=== PATIENT | female | born 1965 ===

== ENCOUNTER 2020-09-02 06:05 | Day surgery (SDC) | payer MEDICAID, SELFPAY ==
[2020-08-30 21:19] VITALS: BMI 33.6
--- NOTE | 2020-09-01 12:14 | P.CONAN_ITS ---
Documented by User: Bobbi Stovall 09/01/20 14:50 HPI - Anesthesia Eval Consult details Narrative: 55yo F for hemorrhoidectomy with EUA PMFSH Past Medical History Medical History (Updated 09/02/20 @ 07:32 by Doris Ma) Anxiety Arthritis Asthma Back pain Coronary artery disease Depression Diabetes GERD (gastroesophageal reflux disease) History of gastroenteritis History of tachycardia History of uterine cancer Hypertension Hypothyroid Increased BMI Migraine Tachycardia Surgical History Surgical History History of cardiac catheterization History of section History of endoscopy History of hysterectomy Social History Social History Smoking Status: Never smoker Use of substances other than those prescribed or required for medical reasons: No Advance Directives: No Advance Directives Information Provided: No Advance Directives on File: No Meds Allergies Allergy/AdvReac Type Severity Reaction Status Date / Time latex [LATEX] Allergy Intermediate ITCH/RASH Verified 09/02/20 06:40 Penicillins Allergy Intermediate RASH Verified 09/02/20 06:40 penicillin V Allergy Unknown rash Verified 09/02/20 06:40 Home Medications Medication Instructions Recorded Confirmed Type Vitamin D (with calcium) 1,000 units PO DAILY 08/30/20 08/30/20 History carvedilol 3.125 mg PO DAILY 08/30/20 08/30/20 History clonazepam 0.5 mg PO DAILY 08/30/20 08/30/20 History clonazepam 1 mg PO BEDTIME 08/30/20 08/30/20 History escitalopram oxalate 40 mg DAILY 08/30/20 08/30/20 History glipizide 10 mg PO DAILY 08/30/20 08/30/20 History isosorbide mononitrate 60 mg PO DAILY 08/30/20 08/30/20 History levothyroxine 50 mcg PO DAILY 08/30/20 08/30/20 History lisinopril 10 mg PO DAILY 08/30/20 08/30/20 History metformin 1,000 mg PO BID 08/30/20 08/30/20 History pregabalin 150 mg PO BID 08/30/20 08/30/20 History rosuvastatin 20 mg PO DAILY 08/30/20 08/30/20 History Exam Exam Date and Time: September 01, 2020 1214 Height,Weight and Vital Signs: Height 5 ft 1 in Weight 80.739 kg Pertinent Lab Results Pertinent Lab Results: Laboratory Tests 05/20/20 05/20/20 08:41 08:41 WBC 8.0 Hgb 13.0 Hct 41.5 Plt Count 193 Sodium 140 Potassium 4.5 Chloride 101 BUN 12 Creatinine 0.81 Narrative Narrative: Cardiac cath 06/2019: nonobstructive CAD with no more than mild ds. Echo 05/2019: EF 60-65% Assessment and Plan Assessment Anesthesia Assessment: Chart Reviewed Documented by User: Doris Ma 09/02/20 07:39 [facility] Past Medical History Medical History (Updated 09/02/20 @ 07:32 by Doris Ma) Anxiety Arthritis Asthma Back pain Coronary artery disease Depression Diabetes GERD (gastroesophageal reflux disease) History of gastroenteritis History of tachycardia History of uterine cancer Hypertension Hypothyroid Increased BMI Migraine Tachycardia Family History Family history of problems with anesthesia: No Surgical History Surgical History History of cardiac catheterization History of section History of endoscopy History of hysterectomy History of Problems with Anesthesia: No Social History Social History Smoking Status: Never smoker Use of substances other than those prescribed or required for medical reasons: No Advance Directives: No Advance Directives Information Provided: No Advance Directives on File: No Meds Allergies Allergy/AdvReac Type Severity Reaction Status Date / Time latex [LATEX] Allergy Intermediate ITCH/RASH Verified 09/02/20 06:40 Penicillins Allergy Intermediate RASH Verified 09/02/20 06:40 penicillin V Allergy Unknown rash Verified 09/02/20 06:40 Home Medications Medication Instructions Recorded Confirmed Type Vitamin D (with calcium) 1,000 units PO DAILY 08/30/20 08/30/20 History carvedilol 3.125 mg PO DAILY 08/30/20 08/30/20 History clonazepam 0.5 mg PO DAILY 08/30/20 08/30/20 History clonazepam 1 mg PO BEDTIME 08/30/20 08/30/20 History escitalopram oxalate 40 mg DAILY 08/30/20 08/30/20 History glipizide 10 mg PO DAILY 08/30/20 08/30/20 History isosorbide mononitrate 60 mg PO DAILY 08/30/20 08/30/20 History levothyroxine 50 mcg PO DAILY 08/30/20 08/30/20 History lisinopril 10 mg PO DAILY 08/30/20 08/30/20 History metformin 1,000 mg PO BID 08/30/20 08/30/20 History pregabalin 150 mg PO BID 08/30/20 08/30/20 History rosuvastatin 20 mg PO DAILY 08/30/20 08/30/20 History Exam Height,Weight and Vital Signs: Vital Signs Temp Pulse Resp BP Pulse Ox 09/02/20 06:33 98.1 F 63 16 124/73 95 Pertinent Lab Results Pertinent Lab Results: Lab Results 09/02/20 Range/Units 06:52 POC Glucose 122 H (60-115) mg/dL Airway Mallampati Class: III TM Dist: >3cm Neck ROM: Full Heart: RRR Lungs: CTAB Assessment and Plan Assessment Anesthesia Assessment: Anesthesia Plan Discussed and Chart Reviewed Final Anesthetic Review NPO: Yes ASA Class: III Final Preanesthetic Review: No Changes in Pt Med Stat, Meds/Allgs Chart Reviewed, Consent Obtained/Reviewed and Anes Risks/Benef Reviewed Patient Risk: Intermediate Procedure Risk: Low Anesthetic Plan Anesthetic Plan: GA Disposition: Standard PACU
[2020-09-02] VITALS (11 sets, daily range): BP systolic 100–129; BP diastolic 57–79; PULSE 59–74; RESP 16–20; TEMP 36–36.7; O2SAT 93–96
[2020-09-02 06:56] LABS: Glucose, Whole Blood 122 mg/dL (60-115)
[2020-09-02] MEDS: Lactated Ringers 1,000 ML 100 ML IVCONT (07:01)
--- NOTE | 2020-09-02 07:18 | MHC.SHP ---
Pre-Procedural Eval Section B Chief Complaint: Hemorrhoids with Complications Allergies: Allergies Allergy/AdvReac Type Severity Reaction Status Date / Time latex [LATEX] Allergy Intermediate ITCH/RASH Verified 09/02/20 06:40 Penicillins Allergy Intermediate RASH Verified 09/02/20 06:40 penicillin V Allergy Unknown rash Verified 09/02/20 06:40 Plan Patient has been examined and remains a candidate for the planned procedure
--- NOTE | 2020-09-02 08:22 | PM.OP ---
Brief Operative Note Date of procedure: 09/02/20 Pre-op diagnosis: internal and external hemorrhoids with pain and prolapse Post-op diagnosis: same Procedure: EUA, hemorrhoidectomy x 2 Surgeon: Juan Ramon Ramirez MD Anesthesia: GETA Estimated blood loss (mL): 5 Pathology: other (hemorrhoids) Condition: stable Disposition: PACU
--- NOTE | 2020-09-02 09:38 | OP_ITS ---
SURGEON: Juan Ramon Ramirez MD INDICATIONS: The patient is a 55-year-old female, who has had chronic issues with pain and prolapse as well as occasional bleeding with her hemorrhoids and she has come back to me and stated that she wanted this removed. She had a mixed internal hemorrhoid columns mostly on the right side. She understood the technique of hemorrhoidectomy. She was aware of the risks, benefits, and alternatives, and she had given consent. PREOPERATIVE DIAGNOSIS: Internal and external hemorrhoids with prolapse and bleeding. POSTOPERATIVE DIAGNOSIS: Internal and external hemorrhoids with prolapse and bleeding. PROCEDURE PERFORMED: ESTIMATED BLOOD LOSS: COMPLICATIONS: ANESTHESIA: ASSISTANTS: SPECIMENS: DESCRIPTION OF PROCEDURE: She was brought to the operating room, placed in prone thiago-knife position under general anesthesia via endotracheal tube. The buttocks were retracted with wide tape laterally. The perianal area was prepped and draped in usual sterile fashion. A surgical time-out was done. The patient received Cefotan 2 g IV preoperatively. Examination of the anal orifice revealed external hemorrhoidal column on the right side posteriorly and another one anteriorly. I inserted the Femi-Obrien retractor and examined the anal canal circumferentially. Again, hemorrhoidal columns were noted and appeared to be mix of both internal and external. There were no other lesions. There was no fissure or any induration. I applied a Villafana grasper at the hemorrhoidal column on the right posterior to retract this. I made a [id number]-[id number] stitch at the pedicle proximal to the dentate line. This was done using a [id number] chromic 3-0 stitch. I made an incision around this hemorrhoidal column of the perianal skin using blade #15 and excised this hemorrhoidal column above the plane of sphincters along this incision all the way to the pedicle. I closed the incision with running chromic 3-0 sutures making sure that there was good hemostasis. We proceeded to do the same procedure on the smaller hemorrhoidal column on the right anterior. Again, this was grasped with a Villafana grasper. I made a [id number] stitch at the pedicle, and using chromic 3-0, I made an incision around this to the perianal skin. I excised this above the plane of sphincters along this incision using scissors. I closed the incision with running chromic 3-0 stitch as well. We observed for hemostasis. Once hemostasis was ensured, we proceeded to then infiltrate the perianal area with Marcaine 0.5% for postop analgesia. The procedure was completed. The patient tolerated the procedure well. There were no complications noted. Initial and final counts of sponges and instruments were correct. Estimated blood loss was minimal. The patient was extubated without difficulty and transferred to the recovery room with stable vital signs. PROCEDURES PERFORMED: Exam under anesthesia, hemorrhoidectomy x2 columns. MD CARLOS Farah/FARZAD / [id number]
[2020-09-02] MEDS: Ketorolac Tromethamine 15 MG/ML VIAL IVPUSH (10:45)
[2020-09-02] MEDS: Acetaminophen 325 MG TABLET 650 MG PO (10:45)
[2020-09-02] MEDS: oxyCODONE HCl Immed Release 5 MG TABLET PO (10:45)
== END 2020-09-02 12:27 | disposition home or self-care (01) ==
PROVIDERS: PCP Nurse Practitioner Family; Visit Provider Surgery
PROC: (CPT 46260; principal; 2020-09-02 07:30)
DX: K64.8 Other hemorrhoids (principal); K64.4 Residual hemorrhoidal skin tags; K21.9 Gastro-esophageal reflux disease without esophagitis; I10 Essential (primary) hypertension; J45.909 Unspecified asthma, uncomplicated; E11.9 Type 2 diabetes mellitus without complications; Z79.84 Long term (current) use of oral hypoglycemic drugs; Z79.899 Other long term (current) drug therapy; Z88.0 Allergy status to penicillin; Z91.040 Latex allergy status
CPT/HCPCS: 46260; 82947; 88304; J1100; J1885; J2250; J2405; J3010

== ENCOUNTER 2020-09-09 09:53 | Emergency (ER) | payer MEDICAID, SELFPAY ==
[2020-09-09 10:12] VITALS: BP 167/86; PULSE 71; RESP 20; TEMP 37.2; O2SAT 95; BMI 30.3
[2020-09-09] MEDS: oxyCODONE HCl Immed Release 5 MG TABLET PO (10:45)
[2020-09-09 10:46] VITALS: BP 161/79; PULSE 75; RESP 16; O2SAT 92
--- NOTE | 2020-09-09 11:10 | ED_ITS ---
HPI - General Adult General Chief complaint: General Medical Stated complaint: SURGERY SUTURES REPTURED Time Seen by Provider: 09/09/20 09:55 Source: patient Mode of arrival: ambulatory Limitations: no limitations History of Present Illness HPI narrative: patient presents to ED for rectal pain. Patient states status post hemorrhoidectomy last Saturday by Dr. Ramirez of surgery. Patient states woke up with severe pain. Patient states no fever, chills, nausea, vomiting, diarrhea, or abdominal pain. Patient states increase in size and pain of hemorrhoid. Related Data Home Medications Medication Instructions Recorded Confirmed Vitamin D (with calcium) 1,000 units PO DAILY 08/30/20 08/30/20 carvedilol 3.125 mg PO DAILY 08/30/20 08/30/20 clonazepam 0.5 mg PO DAILY 08/30/20 08/30/20 clonazepam 1 mg PO BEDTIME 08/30/20 08/30/20 escitalopram oxalate 40 mg DAILY 08/30/20 08/30/20 glipizide 10 mg PO DAILY 08/30/20 08/30/20 isosorbide mononitrate 60 mg PO DAILY 08/30/20 08/30/20 levothyroxine 50 mcg PO DAILY 08/30/20 08/30/20 lisinopril 10 mg PO DAILY 08/30/20 08/30/20 metformin 1,000 mg PO BID 08/30/20 08/30/20 pregabalin 150 mg PO BID 08/30/20 08/30/20 rosuvastatin 20 mg PO DAILY 08/30/20 08/30/20 Previous Rx's Medication Instructions Recorded lidocaine 3 %-hydrocortisone 0.5 % 1 applic TOPICAL BID PRN #28.35 g 08/30/20 topical cream pantoprazole 40 mg granules 40 mg PO BID 30 Days #60 ea 08/31/20 delayed-release for susp in packet docusate sodium [Colace] 100 mg PO BID #60 cap 09/02/20 oxycodone-acetaminophen [Percocet] 1 - 2 tab PO Q4-6H PRN #30 tab 09/02/20 docusate sodium [Colace] 100 mg PO BID #20 cap 09/09/20 ibuprofen 400 mg PO Q6H PRN #28 tab 09/09/20 oxycodone-acetaminophen [Percocet] 1 tab PO Q6H PRN #12 tab 09/09/20 Allergies Allergy/AdvReac Type Severity Reaction Status Date / Time latex [LATEX] Allergy Intermediate ITCH/RASH Verified 09/02/20 06:40 Penicillins Allergy Intermediate RASH Verified 09/02/20 06:40 penicillin V Allergy Unknown rash Verified 09/02/20 06:40 Review of Systems Review of Systems: Yes all other systems are reviewed and are negative Constitutional: Constitutional: Reports as per HPI and Reports no additional constitutional complaints Eyes: Eyes: Reports as per HPI and Reports no additional eye complaints ENT: Reports system reviewed and no additional complaints, except as documented, Reports as per HPI, Denies dysphagia and Denies odynophagia Cardiovascular: Cardiovascular: Reports as per HPI, Reports no additional cardiovascular complaints, Denies dyspnea and Denies dyspnea on exertion Respiratory: Respiratory: Reports as per HPI, Reports no additional respiratory complaints, Reports no additional respiratory complaints, Denies change in phlegm color, Denies chest congestion, Denies cough, Denies excessive phlegm production, Denies pain on inspiration, Denies pain with cough, Denies dyspnea and Denies dyspnea on exertion Gastrointestinal: Gastrointestinal: Reports as per HPI, Reports no additional gastrointestinal complaints, Denies abdominal pain, Denies belching, Denies melena, Denies bloating, Denies hematochezia, Denies change in bowel habits, Denies tenesmus, Denies change in stool character, Denies coffee ground emesis, Denies constipation, Denies GI cramping, Denies dysphagia, Denies excessive flatus, Denies early satiety, Denies dyspepsia, Denies heartburn, Denies fecal incontinence, Denies diarrhea, Denies loose stools, Denies odynophagia, Denies vomiting and Denies hematemesis Genitourinary: Genitourinary: Reports no additional female genitourinary complaints, Reports as per HPI, Denies urinary frequency, Denies difficulty voiding, Denies post void dribbling, Denies dysmenorrhea, Denies dysuria, Denies urinary incontinence, Denies urinary hesitancy and Denies urinary urgency Musculoskeletal: Musculoskeletal: Reports no additional musculoskeletal complaints and Reports as per HPI Neurologic: Reports system reviewed and no additional complaints, except as documented and Reports as per HPI [facility] Past Medical History Medical History (Updated 09/09/20 @ 15:35 by NIKI Ibrahim) Acute hemorrhoid Anxiety Arthritis Asthma Back pain Coronary artery disease Depression Diabetes GERD (gastroesophageal reflux disease) History of gastroenteritis History of tachycardia History of uterine cancer Hypertension Hypothyroid Increased BMI Migraine Post-op pain Tachycardia Surgical History History of cardiac catheterization History of section History of endoscopy History of hysterectomy Social History Social History Alcohol intake: never Smoking Status: Never smoker Physical Exam Vital Signs: Vital Signs: Vital Signs Temp Pulse Resp BP Pulse Ox 09/09/20 16:09 71 16 155/89 H 94 09/09/20 13:36 69 18 150/84 H 94 09/09/20 11:36 70 12 170/80 H 97 09/09/20 10:46 75 16 161/79 H 92 09/09/20 10:12 99 F 71 20 167/86 H 95 Body Mass Index 30.3 Const: General: cooperative, healthy appearing, comfortable, no acute distress, well developed, alert, awake and Physically active Orientation/consciousness: oriented to person, oriented to place, oriented to time and patient oriented x3 HENMT: Head: Yes normal to inspection and Yes No palpable skull fracture present Eyes: General: appearance normal, both eyes and all related structures Neck: Neck: Yes normal visual inspection, Yes full ROM, Yes no lymphadenopathy and Yes no meningeal signs Chest: Chest palpation & inspection: normal inspection of the chest, normal palpation of entire chest wall and no localized rib tenderness Resp: Effort & Inspection: normal respiratory effort, able to speak in complete sentences, normal respiratory pattern, no audible wheezes, no cough, respiratory effort not decreased, no grunting, not labored, no nasal flaring, no paradoxical thoraco-abdom movements, no pursed lip breathing and no tracheal deviation Auscultation: clear to auscultation bilaterally, no crackles, no rales, no rhonchi and no wheezes Cardio: Jugular venous distension: no JVD Heart sounds: S1 normal heart sound present and S2 normal heart sound present GI: Inspection: Yes normal to inspection and No abdominal wall ecchymosis Palpation (GI): Soft to palpation, not firm, nontender, no guarding and not rigid : General: No CVA tenderness and Yes no CVA tenderness Back/Spine/Pelvis: Back: no CVA tenderness, No CVA tenderness and No back tenderness Skin: Other: Rectal exam positive for hemorrhoid that is very tender to palpation. Negative for any pus discharge. Hemorrhoid is pink and not bluish to indicate Thrombosed hemorrhoid. General skin exam: no rashes or lesions noted Neuro: General: oriented to person, oriented to place, oriented to time, patient oriented x3, gait normal, no meningeal signs and CN's II-XI intact bilaterally Cranial nerves: Yes CN's II-XII intact bilaterally Extrem: General: Yes normal to inspection and Yes full ROM Psych: Appearance: grossly normal, well kempt and not disheveled Course Course Course Narrative: Dr. Ramirez will be contacted. Reevaluation(s) Reevaluation #1: attempt was made to get in contact with Dr. Ramirez, but as per his office he is in operating room. He was sent a picture of patient's hemorrhoid through [facility] and will wait for respond. Time: 10:28 Reevaluation #2: Dr. Ramirez here in the ED to evaluate patient. Time: 14:50 Reevaluation #3: Dr. Ramirez evaluated patient and does not recommend any other further surgical intervention. He recommends pain control with Percocet, Motrin, Colace b.i.d., and lidocaine cream. Time: 15:34 Additional Reevaluation(s): Anusol and lidocaine cream preparation was ordered and prepared in the ED for patient. Patient given cream mixed to use at home. Medical Decision Making MDM Narrative Medical decision making narrative: hemorrhoid Discharge Plan Discharge Clinical Impression: External hemorrhoids Patient Disposition: Home, Self-Care Instructions: Hemorrhoids (ED) Prescriptions: New oxycodone-acetaminophen [Percocet] 5-325 mg tablet 1 tab PO Q6H PRN (Reason: pain) Qty: 12 RF: 0 ibuprofen 400 mg tablet 400 mg PO Q6H PRN (Reason: pain) Qty: 28 RF: 0 docusate sodium [Colace] 100 mg capsule 100 mg PO BID Qty: 20 RF: 0 No Action lidocaine HCl-hydrocortison ac 3-0.5 % cream 1 applic topical BID PRN (Reason: pain) Qty: 28.35 RF: 0 pantoprazole [Protonix] [address] for susp in packet 40 mg PO BID 30 Days Qty: 60 RF: 1 clonazepam 0.5 mg Tablet 0.5 mg PO DAILY RF: 0 clonazepam 1 mg Tablet 1 mg PO BEDTIME RF: 0 carvedilol 3.125 mg Tablet 3.125 mg PO DAILY RF: 0 Vitamin D (with calcium) 1,000 units PO DAILY RF: 0 escitalopram oxalate 40 mg DAILY RF: 0 glipizide 10 mg PO DAILY RF: 0 isosorbide mononitrate 60 mg PO DAILY RF: 0 levothyroxine 50 mcg Tablet 50 mcg PO DAILY RF: 0 metformin 1,000 mg Tablet 1,000 mg PO BID RF: 0 lisinopril 10 mg Tablet 10 mg PO DAILY RF: 0 pregabalin 150 mg Capsule 150 mg PO BID RF: 0 rosuvastatin 20 mg PO DAILY RF: 0 docusate sodium [Colace] 100 mg capsule 100 mg PO BID Qty: 60 RF: 2 oxycodone-acetaminophen [Percocet] 5-325 mg tablet 1 - 2 tab PO Q4-6H PRN (Reason: pain) Qty: 30 RF: 0 Referrals: Juan Ramon Ramirez MD [Physician] - 2 days ( external hemorrhoids.) Interventions: ED Discharge Assessment Last Done: 09/09/20 16:12 Discharge Date/Time: 09/09/20 16:41 Print Language: Syrian
--- NOTE | 2020-09-09 11:35 | PC.NURSE ---
introduced self to pt. pt appears impaired, confirmed feeling so. a&ox3, sentences trail off. spo2 90% on RA, placed on 2L o2, currently at 97%. pt denies having taken any other sedatives/opioids this morning. awaiting report from MD Ramirez.
[2020-09-09 11:36] VITALS: BP 170/80; PULSE 70; RESP 12; O2SAT 97
--- NOTE | 2020-09-09 11:48 | PC.NURSE ---
RECEIVED CONSENT FROM PT TO UPDATE SON AND PIZZA MAKER CCARLOS [phone]. MD LAGOS TO EVALUATE PT IN ED. PT AWARE. APPEARS MORE ALERT AT THIS TIME, CONTINUES TO DENY CONSUMPTION OF ANY OTHER MEDICATIONS THIS AM.
--- NOTE | 2020-09-09 12:39 | PC.NURSE ---
PT ASSISTED TO BATHROOM, REPORTED SOME DIZZINESS, AMBULATING SLOWLY BUT GAIT STEADY WITH WALKER. AWAITING ARRIVAL OF MD LAGOS.
--- NOTE | 2020-09-09 12:48 | PC.NURSE ---
INPATIENT BEDSEARCH DDU PER [facility]
[2020-09-09 13:36] VITALS: BP 150/84; PULSE 69; RESP 18; O2SAT 94
--- NOTE | 2020-09-09 13:40 | PC.NURSE ---
PT CONTINUING TO C/O RECTAL PAIN. AWAITING EVAL BY MD LAGOS. TAKEN OFF O2, SPO2 CONSISTENTLY 94-95% ON RA.
--- NOTE | 2020-09-09 15:14 | P.CONGS_ITS ---
History of Present Illness Consult details Consult date: 09/09/20 Narrative: 55F referred to me by the ED. She came today to the ED complaining of pain on her hemorrhoidectomy sites. She had hemorrhoidectomy last which was uneventful. She says she continues to have pain from the site and ran out of pain meds. She therefore went to the ED. She denies any fever or chills. She says she still sees bright blood on stools. She denies being constipated. She says she feels a small lump on outside of her anus. Review of Systems Constitutional: Constitutional: Denies chills and Denies fever(s) Cardiovascular: Cardiovascular: Denies chest pain Respiratory: Respiratory: Denies cough Gastrointestinal: Gastrointestinal: Denies abdominal pain Neurologic: Reports system reviewed and no additional complaints, except as documented and Reports as per [facility] Past Medical History Medical History Acute hemorrhoid Anxiety Arthritis Asthma Back pain Coronary artery disease Depression Diabetes GERD (gastroesophageal reflux disease) History of gastroenteritis History of tachycardia History of uterine cancer Hypertension Hypothyroid Increased BMI Migraine Tachycardia Surgical History Surgical History History of cardiac catheterization History of section History of endoscopy History of hysterectomy Social History Social History Alcohol intake: never Smoking Status: Never smoker Use of substances other than those prescribed or required for medical reasons: No Advance Directives: No Advance Directives Information Provided: No Meds Allergies Allergy/AdvReac Type Severity Reaction Status Date / Time latex [LATEX] Allergy Intermediate ITCH/RASH Verified 09/02/20 06:40 Penicillins Allergy Intermediate RASH Verified 09/02/20 06:40 penicillin V Allergy Unknown rash Verified 09/02/20 06:40 Home Medications Medication Instructions Recorded Confirmed Type Vitamin D (with calcium) 1,000 units PO DAILY 08/30/20 08/30/20 History carvedilol 3.125 mg PO DAILY 08/30/20 08/30/20 History clonazepam 0.5 mg PO DAILY 08/30/20 08/30/20 History clonazepam 1 mg PO BEDTIME 08/30/20 08/30/20 History escitalopram oxalate 40 mg DAILY 08/30/20 08/30/20 History glipizide 10 mg PO DAILY 08/30/20 08/30/20 History isosorbide mononitrate 60 mg PO DAILY 08/30/20 08/30/20 History levothyroxine 50 mcg PO DAILY 08/30/20 08/30/20 History lisinopril 10 mg PO DAILY 08/30/20 08/30/20 History metformin 1,000 mg PO BID 08/30/20 08/30/20 History pregabalin 150 mg PO BID 08/30/20 08/30/20 History rosuvastatin 20 mg PO DAILY 08/30/20 08/30/20 History Physical Exam Vital Signs: Vital Signs: Vital Signs Temp Pulse Resp BP Pulse Ox 09/09/20 13:36 69 18 150/84 H 94 09/09/20 11:36 70 12 170/80 H 97 09/09/20 10:46 75 16 161/79 H 92 09/09/20 10:12 99 F 71 20 167/86 H 95 Body Mass Index 30.3 Const: Other: anxious but not in distress Orientation/consciousness: patient oriented x3 GI: Other: abd soft, nondistended, no guarding or rebound; hemorrhoidectomy sites examined - some edema of residual hemorrhoids, no drainage, no induration, no cellulitis, no bleeding Neuro: General: patient oriented x3 Results Labs Labs: All other labs normal. Assessment and Plan (1) Post-op pain: Status: Acute She is S/P hemorrhoidectomy and has ran out of pain meds. Examination does not reveal any evidence of infection. I assured her that the pain should improve with time. I told her she will be prescribed Percocet 5/325, Ibuprofen 600, and Colace in the ED. She was instructed on hot sitz baths as well. She was instructed to see me in the office next week for a wound check. She says she understands. I have discussed the above with the ED staff.
[2020-09-09 16:09] VITALS: BP 155/89; PULSE 71; RESP 16; O2SAT 94
[2020-09-09] MEDS: Lidocaine HCl 2 % Jelly 5 ML TUBE 2 APPL TOPICAL (16:41)
[2020-09-09] MEDS: Hydrocortisone 2.5 % Rectal Cr 30 GM TUBE 1 APPL PR (16:41)
== END 2020-09-09 16:41 | disposition home or self-care (01) ==
PROVIDERS: Emergency Provider Internal Medicine; PCP Nurse Practitioner Family
DX: K64.4 Residual hemorrhoidal skin tags (principal); G89.18 Other acute postprocedural pain; K62.89 Other specified diseases of anus and rectum; Z79.899 Other long term (current) drug therapy
CPT/HCPCS: 99282; 99284

== ENCOUNTER 2020-09-11 18:03 | Emergency (ER) | payer MEDICAID, SELFPAY ==
--- NOTE | 2020-09-11 | ECG_ITS ---
Test Reason : CHEST PAIN Blood Pressure : / mmHG Vent. Rate : 059 BPM Atrial Rate : 059 BPM P-R Int : 170 ms QRS Dur : 096 ms QT Int : 454 ms P-R-T Axes : 046 001 037 degrees QTc Int : 449 ms Sinus bradycardia Otherwise normal ECG When compared with ECG of 07-MAY-2017 12:06, No significant change was found Referred By: Marguerite Del Castillo Electronically Signed By:OSCAR FUNG MD
[2020-09-11 19:03] VITALS: BP 133/67; PULSE 63; RESP 18; TEMP 36.9; O2SAT 97; BMI 34.3
--- NOTE | 2020-09-11 19:19 | ED_ITS ---
HPI - General Adult General Chief complaint: General Medical Stated complaint: post op rectal pain Time Seen by Provider: 09/11/20 19:03 Source: patient Mode of arrival: ambulatory History of Present Illness HPI narrative: 55-year-old female s/p hemorrhoidectomy 09/02/[address] Ramirez presents to ED complaining of continued severe rectal pain with bleeding. Also reports associated nausea, chills, abdominal pain, constipation without BM x4 days, and decreased p.o. intake. Denies fever, lightheadedness / dizziness, vomiting, CP/SOB patient was recently seen in the ED on 09/09 for same complaint, evaluated in the ED by Dr. Ramirez Related Data Home Medications Medication Instructions Recorded Confirmed Vitamin D (with calcium) 1,000 units PO DAILY 08/30/20 08/30/20 carvedilol 3.125 mg PO DAILY 08/30/20 08/30/20 clonazepam 0.5 mg PO DAILY 08/30/20 08/30/20 clonazepam 1 mg PO BEDTIME 08/30/20 08/30/20 escitalopram oxalate 40 mg DAILY 08/30/20 08/30/20 glipizide 10 mg PO DAILY 08/30/20 08/30/20 isosorbide mononitrate 60 mg PO DAILY 08/30/20 08/30/20 levothyroxine 50 mcg PO DAILY 08/30/20 08/30/20 lisinopril 10 mg PO DAILY 08/30/20 08/30/20 metformin 1,000 mg PO BID 08/30/20 08/30/20 pregabalin 150 mg PO BID 08/30/20 08/30/20 rosuvastatin 20 mg PO DAILY 08/30/20 08/30/20 Previous Rx's Medication Instructions Recorded lidocaine 3 %-hydrocortisone 0.5 % 1 applic TOPICAL BID PRN #28.35 g 08/30/20 topical cream pantoprazole 40 mg granules 40 mg PO BID 30 Days #60 ea 08/31/20 delayed-release for susp in packet docusate sodium [Colace] 100 mg PO BID #60 cap 09/02/20 oxycodone-acetaminophen [Percocet] 1 - 2 tab PO Q4-6H PRN #30 tab 09/02/20 docusate sodium [Colace] 100 mg PO BID #20 cap 09/09/20 ibuprofen 400 mg PO Q6H PRN #28 tab 09/09/20 oxycodone-acetaminophen [Percocet] 1 tab PO Q6H PRN #12 tab 09/09/20 docusate sodium [Colace] 100 mg PO DAILY #14 cap 09/11/20 lidocaine 1 applic TOPICAL QID PRN #30 g 09/11/20 nitrofurantoin monohyd/m-cryst 100 mg PO Q12H 5 Days #10 cap 09/11/20 [Macrobid] Allergies Allergy/AdvReac Type Severity Reaction Status Date / Time latex [LATEX] Allergy Intermediate ITCH/RASH Verified 09/11/20 19:03 Penicillins Allergy Intermediate RASH Verified 09/11/20 19:03 penicillin V Allergy Unknown rash Verified 09/11/20 19:03 Review of Systems Review of Systems: Constitutional: No Weight loss, No Fever, + Chills Cardiovascular: No Chest Pain, No SOB Respiratory: No Cough, No Dyspnea Gastrointestinal: + Nausea, No Vomiting, No Diarrhea, + Constipation, + Abdominal pain Genitourinary: No irregular bleeding, No Dysuria, No Urinary Frequency, No Hematuria, Musculoskeletal: No joint pain, No Myalgias, No Joint Swelling Skin: No Skin Lesions, No rash Neuro: No Weakness, No Dizziness, +Headache PMFSH Past Medical History Attestation statement: The following information was validated with the patient. Source: old records reviewed and nursing notes reviewed Medical History (Updated 09/11/20 @ 22:26 by NIKI Lozano) Acute hemorrhoid Anxiety Arthritis Asthma Back pain Coronary artery disease Depression Diabetes GERD (gastroesophageal reflux disease) History of gastroenteritis History of tachycardia History of uterine cancer Hypertension Hypothyroid Increased BMI Migraine Post-op pain Tachycardia Surgical History History of cardiac catheterization History of section History of endoscopy History of hysterectomy Social History Social History Alcohol intake: never Smoking Status: Never smoker Use of substances other than those prescribed or required for medical reasons: No Advance Directives: No Physical Exam Vital Signs: Vital Signs: Vital Signs Temp Pulse Resp BP Pulse Ox 09/11/20 21:54 97.8 F 78 18 142/76 H 96 09/11/20 20:00 98.7 F 59 18 121/73 93 09/11/20 19:03 98.4 F 63 18 133/67 97 Body Mass Index 34.3 Const: General: cooperative and healthy appearing Orientation/consciousness: patient oriented x3 Limitations: no limitations HENMT: Head: Yes normal to inspection Ears: hearing grossly normal talat aterally General nose exam: Normal external nose present Face and sinus: Yes normal facial exam Eyes: General: appearance normal, both eyes and all related structures EOM: EOMs intact bilaterally Neck: Neck: Yes normal visual inspection Resp: Effort & Inspection: normal respiratory effort GI: Inspection: Yes normal to inspection Palpation (GI): Soft to palpation, nontender, no guarding and not rigid : Other: rectal exam positive for external hemorrhoids that are pink, mildly inflamed, and tender to palpation. No evidence of thrombosis, cellulitis, or drainage. Mild bleeding /friability Skin: Rashes: no rashes Wounds: no wounds Neuro: General: patient oriented x3 Extrem: General: Yes normal to inspection Course Course Course Narrative: -2121-- no leukocytosis, H&H 11.0 / 34.1 (likely postsurgical, low concern for active hemorrhage/post op excessive bleeding) - glucose 45> patient given juice, will observe/re-evaluate (pt took her Metformin today and has not been eating), labs otherwise unremarkable - KUB showing moderate amount of stool throughout the colon, no evidence of obstruction - spoke to Dr. Ramirez, recommended pain medication, stool softeners, and he can see her in office tomorrow - UA contaminated but with leuk esterase, wbc's, and bacteria > with treat with Macrobid - tox screen positive for opiates and benzos -2153-- repeat glucose 90 -2245-- additional repeat POC glucose 103, patient ready for discharge Lab results and close follow-up discussed with patient with Malagasy interpret er. Worrisome signs and symptoms and strict return precautions discussed. Patient verbalized understanding feel safe for discharge home Medical Decision Making [facility] Narrative Medical decision making narrative: 55-year-old female s/p hemorrhoidectomy 09/02/[address] Ramirez presents to ED complaining of continued severe rectal pain with bleeding & associated nausea, chills, abdominal pain, constipation and decreased p.o. intake. On exam VSS, NAD, abdomen soft/nontender, external hemorrhoid with mild bleeding noted. No evidence of infection or thrombosis. Likely residual postop pain. No signs of active infection. Rule out dehydration /metabolic abnormalities vs SBO. Lower concern for infectious etiology plan: Labs, UA, KUB, symptomatic therapies, consult Dr. Ramirez, reassess Lab Data Result diagrams: 09/11/20 20:18 09/11/20 20:18 Labs: Lab Results 09/11/20 09/11/20 09/11/20 Range/Units 20:18 20:18 20:18 WBC 10.6 (4.8-10.8) X10*3/uL RBC 3.86 L (4.20-5.50) X10*6/uL Hgb 11.0 L (12.0-16.0) g/dl Hct 34.1 L (37-47) % MCV 88.3 (80-98) fL MCH 28.5 (27.0-33.0) pg MCHC 32.3 (31.0-35.0) g/dl RDW 14.3 (11.0-16.0) % Plt Count 220 (160-400) X10*3/uL MPV 9.7 (9.4-12.3) fL Immature Gran % (Auto) 0.4 (0.0-0.4) % Neut % (Auto) 49.1 (45-73) % Lymph % (Auto) 37.6 (20-40) % Curry % (Auto) 8.2 (2-11) % Eos % (Auto) 4.0 (0-4) % Baso % (Auto) 0.7 (0-2) % Lymph # (Auto) 4.0 (1.2-4.9) X10*3/uL Curry # (Auto) 0.9 (0.1-1.2) X10*3/uL Eos # (Auto) 0.4 (0.0-0.4) X10*3/uL Baso # (Auto) 0.1 (0.0-0.2) X10*3/uL Abs Immat Gran (auto) 0.04 H (0.00-0.03) X10*3/uL Absolute Neuts (auto) 5.2 (2.0-8.3) X10*3/uL Absolute Nucleated RBC 0.000 (0.0-0.012) X10*3/uL Nucleated RBC % (auto) 0.0 (0.0-0.2) /100WBC Hold Blue Top SEE NOTE Sodium 140 (135-145) mmol/L Potassium 3.7 (3.3-5.1) mmol/l Chloride 102 (96-108) mmol/L Carbon Dioxide 28 (22-29) mmol/L Anion Gap 14 (12-20) BUN 22 H (9-16) mg/dL Creatinine 0.76 (0.5-1.4) mg/dL Estim Creat Clear Calc 91.2 Estimated GFR > 60 POC Glucose (60-115) mg/dL Random Glucose 45 L* (60-115) mg/dL Calcium 8.4 (8.4-10.2) mg/dL Magnesium 1.8 (1.6-2.6) mg/dL Total Bilirubin 0.4 (0.0-1.0) mg/dL Direct Bilirubin 0.4 (0.0-0.5) mg/dL AST 19 (5-31) U/L ALT 17 (0-31) U/L Alkaline Phosphatase 105 (39-117) U/L Total Protein 6.4 L (6.5-8.0) g/dL Albumin 3.8 (3.5-5.0) g/dL Lipase 26 (8-78) U/L Urine Color Urine Appearance Urine pH (5.0-8.0) Ur Specific [place] (1.005-1.025) Urine Protein (NEG-TRACE) MG/DL Urine Glucose (UA) (NEG) MG/DL Urine Ketones (NEG) MG/DL Urine Blood (NEG) Urine Nitrite (NEG) Ur Leukocyte Esterase (NEG) Urine RBC (0) /HPF Urine WBC (0-4) /HPF Ur Squamous Epith Cells /LPF Urine Bacteria /LPF Granular Casts /LPF Urine Mucus /LPF Urine Opiates Screen (Not Detect) Ur Barbiturates Screen (Not Detect) Ur Phencyclidine Scrn (Not Detect) Ur Amphetamines Screen (Not Detect) U Benzodiazepines Scrn (Not Detect) Urine Cocaine Screen (Not Detect) U Marijuana (THC) Screen (Not Detect) 09/11/20 09/11/20 09/11/20 Range/Units 20:51 20:51 21:23 WBC (4.8-10.8) X10*3/uL RBC (4.20-5.50) X10*6/uL Hgb (12.0-16.0) g/dl Hct (37-47) % MCV (80-98) fL MCH (27.0-33.0) pg MCHC (31.0-35.0) g/dl RDW (11.0-16.0) % Plt Count (160-400) X10*3/uL MPV (9.4-12.3) fL Immature Gran % (Auto) (0.0-0.4) % Neut % (Auto) (45-73) % Lymph % (Auto) (20-40) % Curry % (Auto) (2-11) % Eos % (Auto) (0-4) % Baso % (Auto) (0-2) % Lymph # (Auto) (1.2-4.9) X10*3/uL Curry # (Auto) (0.1-1.2) X10*3/uL Eos # (Auto) (0.0-0.4) X10*3/uL Baso # (Auto) (0.0-0.2) X10*3/uL Abs Immat Gran (auto) (0.00-0.03) X10*3/uL Absolute Neuts (auto) (2.0-8.3) X10*3/uL Absolute Nucleated RBC (0.0-0.012) X10*3/uL Nucleated RBC % (auto) (0.0-0.2) /100WBC Hold Blue Top Sodium (135-145) mmol/L Potassium (3.3-5.1) mmol/l Chloride (96-108) mmol/L Carbon Dioxide (22-29) mmol/L Anion Gap (12-20) BUN (9-16) mg/dL Creatinine (0.5-1.4) mg/dL Estim Creat Clear Calc Estimated GFR POC Glucose 49 L* (60-115) mg/dL Random Glucose (60-115) mg/dL Calcium (8.4-10.2) mg/dL Magnesium (1.6-2.6) mg/dL Total Bilirubin (0.0-1.0) mg/dL Direct Bilirubin (0.0-0.5) mg/dL AST (5-31) U/L ALT (0-31) U/L Alkaline Phosphatase (39-117) U/L Total Protein (6.5-8.0) g/dL Albumin (3.5-5.0) g/dL Lipase (8-78) U/L Urine Color YELLOW Urine Appearance CLOUDY Urine pH 6.0 (5.0-8.0) Ur Specific [place] 1.020 (1.005-1.025) Urine Protein 1+ H (NEG-TRACE) MG/DL Urine Glucose (UA) NEG (NEG) MG/DL Urine Ketones NEG (NEG) MG/DL Urine Blood 1+ H (NEG) Urine Nitrite NEG (NEG) Ur Leukocyte Esterase 1+ H (NEG) Urine RBC 1-4 (0) /HPF Urine WBC 10-14 H (0-4) /HPF Ur Squamous Epith Cells 2+ /LPF Urine Bacteria 2+ /LPF Granular Casts 1-4 /LPF Urine Mucus 2+ /LPF Urine Opiates Screen POSITIVE H (Not Detect) Ur Barbiturates Screen Not Detected (Not Detect) Ur Phencyclidine Scrn Not Detected (Not Detect) Ur Amphetamines Screen Not Detected (Not Detect) U Benzodiazepines Scrn POSITIVE H (Not Detect) Urine Cocaine Screen Not Detected (Not Detect) U Marijuana (THC) Screen Not Detected (Not Detect) 09/11/20 09/11/20 Range/Units 21:42 22:36 WBC (4.8-10.8) X10*3/uL RBC (4.20-5.50) X10*6/uL Hgb (12.0-16.0) g/dl Hct (37-47) % MCV (80-98) fL MCH (27.0-33.0) pg MCHC (31.0-35.0) g/dl RDW (11.0-16.0) % Plt Count (160-400) X10*3/uL MPV (9.4-12.3) fL Immature Gran % (Auto) (0.0-0.4) % Neut % (Auto) (45-73) % Lymph % (Auto) (20-40) % Curry % (Auto) (2-11) % Eos % (Auto) (0-4) % Baso % (Auto) (0-2) % Lymph # (Auto) (1.2-4.9) X10*3/uL Curry # (Auto) (0.1-1.2) X10*3/uL Eos # (Auto) (0.0-0.4) X10*3/uL Baso # (Auto) (0.0-0.2) X10*3/uL Abs Immat Gran (auto) (0.00-0.03) X10*3/uL Absolute Neuts (auto) (2.0-8.3) X10*3/uL Absolute Nucleated RBC (0.0-0.012) X10*3/uL Nucleated RBC % (auto) (0.0-0.2) /100WBC Hold Blue Top Sodium (135-145) mmol/L Potassium (3.3-5.1) mmol/l Chloride (96-108) mmol/L Carbon Dioxide (22-29) mmol/L Anion Gap (12-20) BUN (9-16) mg/dL Creatinine (0.5-1.4) mg/dL Estim Creat Clear Calc Estimated GFR POC Glucose 90 103 (60-115) mg/dL Random Glucose (60-115) mg/dL Calcium (8.4-10.2) mg/dL Magnesium (1.6-2.6) mg/dL Total Bilirubin (0.0-1.0) mg/dL Direct Bilirubin (0.0-0.5) mg/dL AST (5-31) U/L ALT (0-31) U/L Alkaline Phosphatase (39-117) U/L Total Protein (6.5-8.0) g/dL Albumin (3.5-5.0) g/dL Lipase (8-78) U/L Urine Color Urine Appearance Urine pH (5.0-8.0) Ur Specific [place] (1.005-1.025) Urine Protein (NEG-TRACE) MG/DL Urine Glucose (UA) (NEG) MG/DL Urine Ketones (NEG) MG/DL Urine Blood (NEG) Urine Nitrite (NEG) Ur Leukocyte Esterase (NEG) Urine RBC (0) /HPF Urine WBC (0-4) /HPF Ur Squamous Epith Cells /LPF Urine Bacteria /LPF Granular Casts /LPF Urine Mucus /LPF Urine Opiates Screen (Not Detect) Ur Barbiturates Screen (Not Detect) Ur Phencyclidine Scrn (Not Detect) Ur Amphetamines Screen (Not Detect) U Benzodiazepines Scrn (Not Detect) Urine Cocaine Screen (Not Detect) U Marijuana (THC) Screen (Not Detect) Discharge Plan Discharge Clinical Impression: Post-op pain, Hypoglycemia UTI (urinary tract infection) Qualifiers: Urinary tract infection type: site unspecified Constipation Qualifiers: Constipation type: unspecified constipation type Qualified Code(s): K59.00 - Constipation, unspecified Patient Disposition: Home, Self-Care Instructions: Constipation (ED), Urinary Tract Infection in Women (ED), Hypoglycemia in a Person with Diabetes (ED) Additional Instructions: your blood work showed a low glucose, you need to make sure your e ating/drinking properly at home, otherwise everything was reassuring Your urine has elements of an infection, Macrobid is an antibiotic, take as prescribed It is important that you follow up with your surgeon, Dr. Ramirez TOMORROW as discussed lidocaine is a topical pain medication, apply to your hemorrhoids for pain relief Colace as a stool softener take as prescribed If you do not have a bowel movement in 48 hours, or stop passing gas return to the ED If pain persists or worsens, becomes unbearable, or bleeding is excessive return to the ED monitor your sugars closely at home Prescriptions: New lidocaine 5 % ointment 1 applic topical QID PRN (Reason: pain) Qty: 30 RF: 0 nitrofurantoin monohyd/m-cryst [Macrobid] 100 mg capsule 100 mg PO Q12H 5 Days Qty: 10 RF: 0 docusate sodium [Colace] 100 mg capsule 100 mg PO DAILY Qty: 14 RF: 0 No Action lidocaine HCl-hydrocortison ac 3-0.5 % cream 1 applic topical BID PRN (Reason: pain) Qty: 28.35 RF: 0 pantoprazole [Protonix] [address] robles susp in packet 40 mg PO BID 30 Days Qty: 60 RF: 1 clonazepam 0.5 mg Tablet 0.5 mg PO DAILY RF: 0 clonazepam 1 mg Tablet 1 mg PO BEDTIME RF: 0 carvedilol 3.125 mg Tablet 3.125 mg PO DAILY RF: 0 Vitamin D (with calcium) 1,000 units PO DAILY RF: 0 escitalopram oxalate 40 mg DAILY RF: 0 glipizide 10 mg PO DAILY RF: 0 isosorbide mononitrate 60 mg PO DAILY RF: 0 levothyroxine 50 mcg Tablet 50 mcg PO DAILY RF: 0 metformin 1,000 mg Tablet 1,000 mg PO BID RF: 0 lisinopril 10 mg Tablet 10 mg PO DAILY RF: 0 pregabalin 150 mg Capsule 150 mg PO BID RF: 0 rosuvastatin 20 mg PO DAILY RF: 0 docusate sodium [Colace] 100 mg capsule 100 mg PO BID Qty: 60 RF: 2 oxycodone-acetaminophen [Percocet] 5-325 mg tablet 1 - 2 tab PO Q4-6H PRN (Reason: pain) Qty: 30 RF: 0 oxycodone-acetaminophen [Percocet] 5-325 mg tablet 1 tab PO Q6H PRN (Reason: pain) Qty: 12 RF: 0 ibuprofen 400 mg tablet 400 mg PO Q6H PRN (Reason: pain) Qty: 28 RF: 0 docusate sodium [Colace] 100 mg capsule 100 mg PO BID Qty: 20 RF: 0 Referrals: Juan Ramon Ramirez MD [Physician] - 1 day (tomorrow see him in the office) Print Language: Malagasy
--- NOTE | 2020-09-11 19:23 | XR_ITS ---
EXAMINATION: ABDOMEN 1 VIEW CLINICAL INFORMATION: Constipation. COMPARISON: 05/30/2020. TECHNIQUE: A supine view of the abdomen is provided. FINDINGS: There are no dilated loops of small bowel. There are no air-fluid levels. There is a moderate amount of stool throughout the colon. The visualized lung bases are clear. The osseous structures are unremarkable. XR/XR KUB IMPRESSION: Moderate amount of stool throughout the colon. No evidence for obstruction.
[2020-09-11 20:00] VITALS: BP 121/73; PULSE 59; RESP 18; TEMP 37.1; O2SAT 93
[2020-09-11] MEDS: 0.9 % Sodium Chloride 1,000 ML 999 ML IVCONT (20:20)
[2020-09-11] MEDS: Acetaminophen 325 MG TABLET 650 MG PO (20:35)
[2020-09-11] MEDS: ondansetron HCL 4 MG/2 ML VIAL IVPUSH (20:35)
[2020-09-11] MEDS: Ketorolac Tromethamine 15 MG/ML VIAL IVPUSH (20:35)
[2020-09-11 20:44] LABS: MANUAL DIFF FLAG NO
[2020-09-11 20:55] LABS: Basophils Absolute Auto 0.1 X10*3/uL (0.0-0.2); Basophils Percent Auto 0.7 % (0-2); Eosinophils Absolute Auto 0.4 X10*3/uL (0.0-0.4); Hematocrit 34.1 % (37-47); Imm Gran Abs Auto 0.04 X10*3/uL (0.00-0.03); Imm Gran Pct Auto 0.4 % (0.0-0.4); Lymphocytes Percent Auto 37.6 % (20-40); Mean Corpuscular HGB Conc 32.3 g/dl (31.0-35.0); Mean Corpuscular Hemoglobin 28.5 pg (27.0-33.0); Mean Corpuscular Volume 88.3 fL (80-98); Mean Platelet Volume 9.7 fL (9.4-12.3); Monocytes Absolute Auto 0.9 X10*3/uL (0.1-1.2); Monocytes Percent Auto 8.2 % (2-11); Neutrophils Absolute Auto 5.2 X10*3/uL (2.0-8.3); Neutrophils Percent Auto 49.1 % (45-73); Platelet Count 220 X10*3/uL (160-400); Red Blood Count 3.86 X10*6/uL (4.20-5.50); Red Cell Distribution Width 14.3 % (11.0-16.0); White Blood Count 10.6 X10*3/uL (4.8-10.8)
[2020-09-11 21:21] LABS: Glucose Urine UA NEG (NEG); Leukocyte Esterase Urine 1+ (NEG); Nitrite Urine NEG (NEG); Urine Blood 1+ (NEG); Urine Ketones NEG (NEG); Urine Protein 1+ MG/DL (NEG-TRACE)
[2020-09-11 21:23] LABS: Alanine Aminotransferase 17 U/L (0-31); Albumin Level 3.8 g/dL (3.5-5.0); Alkaline Phosphatase 105 U/L (39-117); Anion Gap 14 (12-20); Aspartate Amino Transferase 19 U/L (5-31); Bilirubin Direct 0.4 mg/dL (0.0-0.5); Bilirubin Total 0.4 mg/dL (0.0-1.0); Blood Urea Nitrogen 22 mg/dL (9-16); Calcium 8.4 mg/dL (8.4-10.2); Carbon Dioxide 28 mmol/L (22-29); Chloride 102 mmol/L (96-108); Creatinine Clr Calc Pharmacy 91.2; Estimated Glomerular Filt Rate > 60; Glucose Random 45 mg/dL (60-115); Lipase 26 U/L (8-78); Magnesium 1.8 mg/dL (1.6-2.6); Potassium 3.7 mmol/l (3.3-5.1); Sodium 140 mmol/L (135-145); Total Protein 6.4 g/dL (6.5-8.0)
[2020-09-11 21:26] LABS: Appearance Urine CLOUDY; Color Urine YELLOW
--- NOTE | 2020-09-11 21:26 | MHC.PIE ---
Addendum entered by Chris Swanson RN 09/11/20 22:40: E: Repeat POC 103. NIKI made aware. Pt is ready for discharge. Addendum entered by Chris Swanson RN 09/11/20 21:56: E: POC 90. Marguerite PRINCE made aware of new result. Original Note: P: Critical glucose from lab at 45. I: Assessed patient. Recheck POC : 49. Pt alert/oriented/verbal. Mcleod juice and gram crackers given. Will re-check POC. Continue to monitor.
[2020-09-11] MEDS: Lidocaine 5 % Ointment 35 GM 1 APPL TOPICAL (21:29)
[2020-09-11 21:33] LABS: Bacteria Urine 2+ /LPF; Mucus Urine 2+ /LPF; Squamous Epithelial Cell Urine 2+ /LPF
[2020-09-11 21:34] LABS: Amphetamine Screen Urine Not Detected (Not Detect); Barbiturates, Urine Not Detected (Not Detect); Benzodiazepines Screen Urine POSITIVE (Not Detect); Cannabinoid Screen Urine Not Detected (Not Detect); Cocaine Screen Urine Not Detected (Not Detect); Opiate Screen Urine POSITIVE (Not Detect); Phencyclidine Screen Urine Not Detected (Not Detect)
[2020-09-11 21:54] VITALS: BP 142/76; PULSE 78; RESP 18; TEMP 36.6; O2SAT 96
[2020-09-11 22:15] LABS: Glucose, Whole Blood 90 mg/dL (60-115)
[2020-09-11 22:15] LABS: Glucose, Whole Blood 49 mg/dL (60-115)
[2020-09-11] MEDS: Nitrofurantoin Monohyd/M-Cryst 100 MG CAPSULE PO (22:39)
[2020-09-11 22:41] LABS: Glucose, Whole Blood 103 mg/dL (60-115)
== END 2020-09-11 22:52 | disposition home or self-care (01) ==
PROVIDERS: Physician Assistant; Emergency Provider Internal Medicine; PCP Nurse Practitioner Family
DX: G89.18 Other acute postprocedural pain (principal); N39.0 Urinary tract infection, site not specified; K59.00 Constipation, unspecified; Z79.899 Other long term (current) drug therapy
CPT/HCPCS: 36415; 74018; 80048; 80076; 80307; 81001; 82947; 83690; 83735; 85025; 87086; 93005; 96361; 96374; 96375; 99284; J1885; J2405

== ENCOUNTER → 2020-09-12 10:38 | Outpatient (BNVA) | payer MEDICAID, SELFPAY | PROVIDERS: PCP Nurse Practitioner Family; Referring Provider Nurse Practitioner Family; Visit Provider Surgery | DX: G89.18 Other acute postprocedural pain (principal) | CPT/HCPCS: 99212 ==

== ENCOUNTER → 2020-09-26 09:29 | Outpatient (BNVA) | payer MEDICAID, SELFPAY | PROVIDERS: PCP Nurse Practitioner Family; Referring Provider Nurse Practitioner Family; Visit Provider Internal Medicine Gastroenterology | DX: Z09 Encounter for follow-up examination after completed treatment for conditions other than malignant neoplasm (principal); Z87.19 Personal history of other diseases of the digestive system; K59.04 Chronic idiopathic constipation; K21.9 Gastro-esophageal reflux disease without esophagitis; K30 Functional dyspepsia | CPT/HCPCS: 99212 ==

== ENCOUNTER 2020-10-19 15:37 | Outpatient (REF) | payer MEDICAID, SELFPAY ==
--- NOTE | 2020-10-19 16:00 | MR_ITS ---
EXAMINATION: MR BRAIN WITHOUT CONTRAST CLINICAL INFORMATION: Encephalopathy. COMPARISON: CT head from 05/07/2020. Brain MRI from 02/14/2015. TECHNIQUE: MRI of the brain was obtained using routine sequences without contrast. FINDINGS: No focal restricted diffusion is demonstrated to suggest acute or subacute cerebral ischemia. No evidence of acute or chronic hemorrhagic products on heme-sensitive imaging. Minimal nonspecific periventricular and deep white matter T2 FLAIR hyperintensities, most commonly seen with mild underlying microangiopathy. No additional parenchymal signal abnormalities. The ventricles are normal in morphology and size. No abnormal mass effect. No midline shift. The sella turcica is mildly expanded and partially empty. No abnormalities of the posterior fossa with normal appearance of the brainstem and cerebellum. The cerebellar tonsils are normally positioned. Normal arterial and venous vascular flow voids are present. Normal, homogeneous marrow signal. Mild mucosal thickening of the paranasal sinuses. Mild rightward nasal septal deviation. Small bilateral mastoid effusions. MR/MR head/brain wo con IMPRESSION: 1. No acute intracranial abnormalities. 2. Minimal white matter changes most commonly seen with mild underlying microangiopathy.
[2020-10-19 18:22] LABS: Estimated Average Glucose 123 mg/dL; Hemoglobin A1c % 5.9 %
[2020-10-19 18:31] LABS: Alanine Aminotransferase 27 U/L (0-31); Albumin Level 4.5 g/dL (3.5-5.0); Alkaline Phosphatase 121 U/L (39-117); Aspartate Amino Transferase 26 U/L (5-31); Bilirubin Direct 0.5 mg/dL (0.0-0.5); Bilirubin Total 1.1 mg/dL (0.0-1.0); Glucose Random 71 mg/dL (60-115); Magnesium 1.9 mg/dL (1.6-2.6); Total Protein 7.5 g/dL (6.5-8.0)
== END 2020-10-19 15:38 | disposition home or self-care (01) ==
LOC: HO.MRI 15:37
PROVIDERS: Visit Provider Psychiatry & Neurology Neurology
DX: G93.40 Encephalopathy, unspecified (principal)
CPT/HCPCS: 70551; 80076; 82947; 83036; 83735

== ENCOUNTER → 2020-12-05 10:04 | Outpatient (BNVA) | payer MEDICAID, SELFPAY | PROVIDERS: PCP Nurse Practitioner Family; Visit Provider Internal Medicine Gastroenterology ==

== ENCOUNTER → 2020-12-13 13:48 | Outpatient (BNVA) | payer MEDICAID, SELFPAY | PROVIDERS: PCP Nurse Practitioner Family; Visit Provider Urology ==

== ENCOUNTER → 2021-01-09 14:37 | Outpatient (BNVA) | payer MEDICAID, SELFPAY | PROVIDERS: PCP Nurse Practitioner Family; Visit Provider Advanced Practice Midwife ==

== ENCOUNTER 2021-02-01 14:28 | Outpatient (REF) | payer MEDICAID, SELFPAY ==
--- NOTE | ~2021-02-01 | FL_ITS ---
PROCEDURE: XR BARIUM SWALLOW CLINICAL INFORMATION: Functional dyspepsia. Globus. COMPARISON: None TECHNIQUE: Routine modified barium swallow was performed in lateral fluoroscopy in presence of speech therapist. FINDINGS: Following oral administration of thin barium, thick barium, apple puree, pudding, turkey and barium-coated cookie there is normal oral mastication with premature spillage into the oropharynx with slow propagation of bolus from the oral cavity through the pharynx into the esophagus. No laryngeal penetration or aspiration seen. No gross bony abnormality. FL/FL barium swallow modified IMPRESSION: Premature spillage into the pharynx with slow propagation of bolus from the oral cavity into the esophagus. Otherwise there is no laryngeal penetration, aspiration or retention of barium in the pharynx. Correlate with speech therapy report. FLUOROSCOPY TIME: 1.4 minutes. DOSE AREA PRODUCT: 7.58
== END 2021-02-01 14:29 | disposition home or self-care (01) ==
LOC: HO.XRAY 14:28
PROVIDERS: Visit Provider Internal Medicine Gastroenterology
DX: K30 Functional dyspepsia (principal); K21.9 Gastro-esophageal reflux disease without esophagitis
CPT/HCPCS: 74230; 92611

== ENCOUNTER → 2021-03-27 07:32 | Outpatient (REF) | payer MEDICAID, SELFPAY ==
--- NOTE | ~2021-03-27 | NM_ITS ---
Lexiscan Myocardial perfusion study Indication: Hypertension, diabetes, obesity, shortness of breath, assess for ischemia Technique: The patient was brought in for a Lexiscan perfusion study on 03/27/2021 and was injected 0.4 mg of Lexiscan intravenously. Within a minute of this injection 25 mCi of sestamibi was given intravenously. Images were obtained using the SPECT gamma camera interlaced with the gating device. Images were obtained in supine position. Resting perfusion study was performed on 03/28/2021. Patient was administered 25 mCi of sestamibi intravenously at rest. Images were then obtained in supine position. Total DLP 117mGy-cm. Images were processed with the software and compared side to side in short axis, horizontal long axis and vertical long axis views. Findings: Raw acquisition was reviewed. The stress perfusion study showed very small, mild reduction in tracer uptake in the apical part of lateral wall. That seems to improve with CT attenuation correction but there is a new defect in the apical anterior septum which could be artifactual. The gated study shows normal LV systolic function with calculated LVEF of 71%. LV cavity is normal in size. The gated study shows normal wall thickening and contraction of segments. Resting study shows mild reduction in tracer uptake in the apical part of anterior septum but otherwise unremarkable. Gating at rest reveals normal wall motion with ejection fraction at 68%. The findings are consistent with small mild reversible defect in the apical lateral wall in the uncorrected images; fixed apical septal defect in the corrected acquisition; most likely all artifactual. NM/NM maranda perf SPECT rest & str Impression: 1. Myocardial perfusion imaging study shows likely normal myocardial perfusion. No definitive evidence of any ischemia or infarction. 2. Gated LVEF is 71% during stress and 68% during rest. 3. Transient ischemic dilatation not present. EKG component of the test reported separately.
--- NOTE | 2021-03-27 07:42 | CA_ITS ---
Acquisition Time: 2021-03-27 08:07:42 Total Exercise Time: 00:00:24 Test Indications: Dyspnea Medications: SEE H Protocol: KEV Max HR: 105 BPM 63% of Pred: 165 BPM Max BP: 120/070 mmHG Max Work Load: 1.6 METS Test switched to Lexiscan as pt was unable to walk on the treadmill. Pt tolerated well, chest pressure after Lexiscan, reversed with coffenated drink. Headache reversed with Aminophyline 75 mg IV. EKG with no arrhythmias, non-diagnostic for ischemia. Nuclear images to follow. Normotensive response to test. Test reviewed with Dr. Neal. Referred By: Ernie Portillo Overread By: Virginia Welch NP
== END ==
LOC: HO.CARD 07:32
PROVIDERS: Visit Provider Internal Medicine Cardiovascular Disease
DX: R06.02 Shortness of breath (principal)
CPT/HCPCS: 78452; 93016; 93017; 93018; A9500; J0280; J2785

== ENCOUNTER 2021-04-17 14:56 | Outpatient (REF) | payer MEDICAID, SELFPAY ==
--- NOTE | 2021-04-17 | PFT_ITS ---
Forced vital capacity is slightly decreased. FEV1, UBD96-80 are normal. MVV is moderately decreased. Post bronchodilator therapy, there is a significant improvement in FVC, FEV1, and NZK27-27. Also, the MVV is increased to almost normal. Total lung capacity and residual volume are normal. Diffusion capacity normal. CONCLUSION: There is a mild obstructive airway disorder and significant improvement after bronchodilator therapy is noted. These findings are consistent with bronchial asthma. Clinical correlation is recommended. MD PERI Hardy/MODL / [id number]
== END 2021-04-17 14:57 | disposition home or self-care (01) ==
LOC: HO.RESP 14:56
PROVIDERS: PCP General Practice; Visit Provider General Practice
DX: J45.909 Unspecified asthma, uncomplicated (principal)
CPT/HCPCS: 94060; 94727; 94729

== ENCOUNTER → 2021-06-06 13:07 | Outpatient (BNVA) | payer MEDICAID, SELFPAY | PROVIDERS: PCP Nurse Practitioner Family; Visit Provider Nurse Practitioner ==

== ENCOUNTER → 2021-06-27 10:12 | Outpatient (BNVA) | payer MEDICAID, SELFPAY | PROVIDERS: PCP General Practice; Visit Provider Hospitalist | DX: J45.909 Unspecified asthma, uncomplicated (principal); K30 Functional dyspepsia; K59.04 Chronic idiopathic constipation; K21.9 Gastro-esophageal reflux disease without esophagitis; R06.00 Dyspnea, unspecified; R25.1 Tremor, unspecified | CPT/HCPCS: 99202 ==

== ENCOUNTER → 2021-06-30 13:59 | Outpatient (BNVA) | payer MEDICAID, SELFPAY | PROVIDERS: Visit Provider Nurse Practitioner | DX: K59.04 Chronic idiopathic constipation (principal); K21.9 Gastro-esophageal reflux disease without esophagitis; K30 Functional dyspepsia; Z79.899 Other long term (current) drug therapy | CPT/HCPCS: 99212 ==

== ENCOUNTER 2021-07-07 12:12 | Outpatient (REF) | payer MEDICAID, SELFPAY ==
--- NOTE | ~2021-07-07 | XR_ITS ---
EXAMINATION: XR CHEST CLINICAL INFORMATION: Asthma COMPARISON: Chest radiograph 01/14/2020 TECHNIQUE: 2 views of the chest were obtained. FINDINGS: No significant abnormality is noted involving the heart, lungs, mediastinum, bony thorax or soft tissues. XR/XR chest 2V IMPRESSION: Unremarkable examination.
[2021-07-07 13:15] LABS: MANUAL DIFF FLAG NO
[2021-07-07 13:29] LABS: Basophils Absolute Auto 0.1 X10*3/uL (0.0-0.2); Basophils Percent Auto 0.8 % (0-2); Eosinophils Absolute Auto 0.3 X10*3/uL (0.0-0.4); Eosinophils Percent Auto 2.5 % (0-4); Hematocrit 41.1 % (37-47); Hemoglobin 12.6 g/dl (12.0-16.0); Imm Gran Abs Auto 0.02 X10*3/uL (0.00-0.03); Imm Gran Pct Auto 0.2 % (0.0-0.4); Lymphocytes Absolute Auto 4.1 X10*3/uL (1.2-4.9); Lymphocytes Percent Auto 41.6 % (20-40); Mean Corpuscular HGB Conc 30.7 g/dl (31.0-35.0); Mean Corpuscular Hemoglobin 25.4 pg (27.0-33.0); Mean Corpuscular Volume 82.9 fL (80-98); Mean Platelet Volume 10.2 fL (9.4-12.3); Monocytes Absolute Auto 0.5 X10*3/uL (0.1-1.2); Monocytes Percent Auto 5.4 % (2-11); Neutrophils Absolute Auto 4.9 X10*3/uL (2.0-8.3); Neutrophils Percent Auto 49.5 % (45-73); Platelet Count 274 X10*3/uL (160-400); Red Blood Count 4.96 X10*6/uL (4.20-5.50); Red Cell Distribution Width 15.9 % (11.0-16.0); White Blood Count 9.9 X10*3/uL (4.8-10.8)
[2021-07-07 14:21] LABS: Erythrocyte Sedimentation Rate 16 MM/HR (0-20)
[2021-07-11 04:42] LABS: IgA 278 mg/dL (47-310); IgG 1139 mg/dL (600-1640); IgM 177 mg/dL (50-300)
== END 2021-07-07 12:13 | disposition home or self-care (01) ==
LOC: HO.XRAY 12:12
PROVIDERS: PCP General Practice; Visit Provider Hospitalist
DX: J45.909 Unspecified asthma, uncomplicated (principal); Z01.82 Encounter for allergy testing
CPT/HCPCS: 36415; 71046; 82784; 82785; 85025; 85652; 86003

== ENCOUNTER → 2021-07-14 11:56 | Outpatient (BNVA) | payer MEDICAID, SELFPAY | PROVIDERS: Visit Provider Physician Assistant ==

== ENCOUNTER → 2021-08-24 10:35 | Outpatient (BNVA) | payer MEDICAID, SELFPAY | PROVIDERS: PCP General Practice | DX: R35.1 Nocturia (principal); R39.15 Urgency of urination | CPT/HCPCS: 51798; 99212 ==

== ENCOUNTER → 2021-10-02 12:56 | Outpatient (BNVA) | payer MEDICAID, SELFPAY | PROVIDERS: PCP General Practice; Visit Provider Hospitalist | DX: J45.909 Unspecified asthma, uncomplicated (principal); R06.00 Dyspnea, unspecified; R25.1 Tremor, unspecified; K30 Functional dyspepsia; K21.9 Gastro-esophageal reflux disease without esophagitis | CPT/HCPCS: 90471; 90686; 99212 ==

== ENCOUNTER 2021-12-07 16:36 | Outpatient (REF) | payer MEDICAID, SELFPAY ==
--- NOTE | ~2021-12-07 | US_ITS ---
EXAMINATION: US RETROPERITONEAL LIMITED (RENAL ONLY) CLINICAL INFORMATION: Personal history of urinary calculi. COMPARISON: CT abdomen and pelvis 05/30/2020 TECHNIQUE: Real-time imaging of the kidneys. FINDINGS: RIGHT KIDNEY: 12.9 x 6.1 x 5.4 cm (SAG x AP x TRV). The kidney is normal in size, contour, and echogenicity. Renal cortical thickness is normal. No calculi or focal parenchymal lesions. No hydronephrosis. LEFT KIDNEY: 13.4 x 6.0 x 4.5 cm (SAG x AP x TRV). The kidney is normal in size, contour, and echogenicity. Renal cortical thickness is normal. No calculi or focal parenchymal lesions. No hydronephrosis. US/US renal BI IMPRESSION: No renal calculi or hydronephrosis..
== END 2021-12-07 16:37 | disposition home or self-care (01) ==
LOC: HO.US 16:36
PROVIDERS: Visit Provider General Practice
DX: R32 Unspecified urinary incontinence (principal); R35.1 Nocturia; Z87.442 Personal history of urinary calculi
CPT/HCPCS: 76775

== ENCOUNTER → 2022-02-22 14:40 | Outpatient (BNVA) | payer MEDICAID, SELFPAY | PROVIDERS: PCP General Practice; Visit Provider Advanced Practice Midwife | DX: Z01.419 Encounter for gynecological examination (general) (routine) without abnormal findings (principal) ==

== ENCOUNTER 2022-03-07 13:55 | Outpatient (REF) | payer MEDICAID, SELFPAY ==
--- NOTE | ~2022-03-07 | MM_ITS ---
EXAMINATION: MM SCREENING DIGITAL BREAST TOMOSYNTHESIS, BILATERAL CLINICAL INFORMATION: Screening. Asymptomatic. The lifetime risk of breast cancer based on the Tyrer-Cuzick Model is 13%. COMPARISON: Mammography: 07/01/2020, 11/10/2019, 03/19/2019, 03/13/2018, 08/13/2016, 07/13/2015 TECHNIQUE: Digital breast tomosynthesis is performed in both the craniocaudal and mediolateral oblique views along with computer-aided detection (CAD). Synthesized 2D images are generated from the tomosynthesis. FINDINGS: There are scattered areas of fibroglandular density (ACR BI-RADS breast composition Category b). There are no significant masses, abnormal calcifications, or other abnormalities. No significant changes from prior studies. Skin contours are smooth. MM/MM tomosynthesis screening BI IMPRESSION: No significant changes from prior exams. ASSESSMENT: BI-RADS 1: Negative RECOMMENDATION: Routine annual mammography screening. This patient's information was entered into a reminder system with a target due date for their next mammogram.
== END 2022-03-07 13:56 | disposition home or self-care (01) ==
LOC: HO.MAMMO 13:55
PROVIDERS: PCP General Practice; Visit Provider Advanced Practice Midwife
DX: Z12.31 Encounter for screening mammogram for malignant neoplasm of breast (principal)
CPT/HCPCS: 77063; 77067

== ENCOUNTER 2022-09-03 14:52 | Outpatient (REF) | payer MEDICAID, SELFPAY ==
[2022-09-03 16:35] LABS: Folate 12.8 ng/mL (> or = 4.0); Vitamin B12 314 pg/mL (200-900)
[2022-09-03 17:45] LABS: Erythrocyte Sedimentation Rate 23 MM/HR (0-20)
[2022-09-04 18:56] LABS: Lyme Abs Screen <0.90 index
[2022-09-05 05:43] LABS: Syphilis Screen Nonreactive (Nonreactive)
[2022-09-05 14:51] LABS: Anti Nuclear Antibody Screen NEGATIVE (NEGATIVE)
== END 2022-09-03 14:53 | disposition home or self-care (01) ==
LOC: HO.LAB 14:52
PROVIDERS: PCP General Practice; Visit Provider Psychiatry & Neurology Neurology
DX: G43.909 Migraine, unspecified, not intractable, without status migrainosus (principal); J45.909 Unspecified asthma, uncomplicated; R06.00 Dyspnea, unspecified; R25.1 Tremor, unspecified; K21.9 Gastro-esophageal reflux disease without esophagitis; K30 Functional dyspepsia; R04.2 Hemoptysis; G47.33 Obstructive sleep apnea (adult) (pediatric)
CPT/HCPCS: 36415; 82607; 82746; 85652; 86038; 86039; 86617; 86618; 86780; 99212

== ENCOUNTER 2022-09-06 13:53 | Outpatient (REF) | payer MEDICAID, SELFPAY | END 2022-09-06 13:54 | disposition home or self-care (01) | LOC: HO.XRAY 13:53 | PROVIDERS: PCP General Practice; Visit Provider Hospitalist | DX: Z13.89 Encounter for screening for other disorder (principal) ==

== ENCOUNTER → 2022-09-20 13:14 | Outpatient (REF) | payer MEDICAID, SELFPAY | LOC: HO.SL 13:14 | PROVIDERS: PCP General Practice; Visit Provider Hospitalist | DX: G47.33 Obstructive sleep apnea (adult) (pediatric) (principal) | CPT/HCPCS: 95806 ==

== ENCOUNTER → 2022-11-16 13:51 | Outpatient (BNVA) | payer MEDICAID, SELFPAY | PROVIDERS: PCP General Practice; Visit Provider Hospitalist | DX: G47.33 Obstructive sleep apnea (adult) (pediatric) (principal); J45.909 Unspecified asthma, uncomplicated; R06.00 Dyspnea, unspecified; K21.9 Gastro-esophageal reflux disease without esophagitis; K30 Functional dyspepsia | CPT/HCPCS: 99212 ==

== ENCOUNTER 2022-12-10 14:37 | Outpatient (REF) | payer MEDICAID, SELFPAY ==
--- NOTE | ~2022-12-10 | XR_ITS ---
EXAMINATION: XR CHEST CLINICAL INFORMATION: Hemoptysis. COMPARISON: None TECHNIQUE: 2 views of the chest were obtained. FINDINGS: No significant abnormality is noted involving the heart, lungs, mediastinum, bony thorax or soft tissues. XR/XR chest 2V IMPRESSION: Unremarkable chest examination.
== END 2022-12-10 14:38 | disposition home or self-care (01) ==
LOC: HO.XRAY 14:37
PROVIDERS: PCP General Practice; Visit Provider Hospitalist
DX: R04.2 Hemoptysis (principal)
CPT/HCPCS: 71046

== ENCOUNTER → 2023-02-18 14:05 | Outpatient (BNVA) | payer MEDICAID, SELFPAY | PROVIDERS: PCP General Practice; Visit Provider Hospitalist | DX: G47.33 Obstructive sleep apnea (adult) (pediatric) (principal); J45.909 Unspecified asthma, uncomplicated; R06.00 Dyspnea, unspecified; K21.9 Gastro-esophageal reflux disease without esophagitis; R04.2 Hemoptysis; Z99.81 Dependence on supplemental oxygen | CPT/HCPCS: 99212 ==

== ENCOUNTER 2023-02-27 14:32 | Outpatient (REF) | payer MEDICAID, SELFPAY ==
[2023-02-28 11:08] LABS: BV Int Neg Control Negative (Negative); BV Int Pos Control Positive (Positive)
== END 2023-02-27 14:33 | disposition home or self-care (01) ==
LOC: HO.LAB 14:32
PROVIDERS: PCP General Practice; Visit Provider Advanced Practice Midwife
DX: Z01.419 Encounter for gynecological examination (general) (routine) without abnormal findings (principal); L29.2 Pruritus vulvae
CPT/HCPCS: 87480; 87510; 87660

== ENCOUNTER 2023-03-21 11:05 | Day surgery (SDC) | payer MEDICAID, SELFPAY ==
--- NOTE | 2023-03-20 09:41 | HO.ANESPROP2 ---
Documented by User: Bobbi Stovall NP 03/20/23 10:36 HPI - Anesthesia Eval Consult details Narrative: 57yo F for Bronchoscopy Fiberoptic Follows cardiology for CAD. Last office visit 10/2022 post stress test (nml per note). Echo 12/2022 without change from 2020 [facility] Active Problems Active Problems: All Active Problems (Updated 09/03/22 @ 14:34 by Nick Lofton MD) JENNYFER (obstructive sleep apnea) (Acute) Hemoptysis (Acute) Encounter for screening mammogram for malignant neoplasm of breast (Acute) Encounter for annual routine gynecological examination (Acute) History of nephrolithiasis (Acute) Tremors of nervous system (Acute) Dyspnea (Acute) Asthma (Acute) Urinary urgency (Acute) Nocturia more than twice per night (Acute) Acute hemorrhoid (Acute) Delayed gastric emptying (Acute) Chronic idiopathic constipation (Acute) GERD (gastroesophageal reflux disease) (Acute) Post-op pain (Acute) Increased BMI (Acute) Anxiety (Acute) Past Medical History Medical History Acute hemorrhoid Anxiety Arthritis Asthma Back pain Chronic idiopathic constipation Coronary artery disease Delayed gastric emptying Depression Diabetes Dyspnea GERD (gastroesophageal reflux disease) History of gastroenteritis History of nephrolithiasis History of tachycardia History of uterine cancer Hypertension Hypothyroid Increased BMI Migraine Post-op pain PTSD (post-traumatic stress disorder) Tachycardia Tremors of nervous system Family History Family History Brother Stomach cancer Esophageal cancer Colon cancer Maternal Aunt History of breast cancer Paternal Aunt History of breast cancer Other Cancer Diabetes Heart problem Kidney problem Liver problem Thyroid condition Family history of problems with anesthesia: No Surgical History Surgical History History of cardiac catheterization History of section History of endoscopy History of hysterectomy Hx of colonoscopy History of Problems with Anesthesia: No Social History Social History Household Members: Children Household Members Other:: lives with son Alcohol intake: never Patient Tobacco Use Status: Never used Tobacco Current occupational status: disabled Meds Allergies Allergy/AdvReac Type Severity Reaction Status Date / Time latex [LATEX] Allergy Intermediate ITCH/RASH Verified 02/27/23 14:55 Penicillins Allergy Intermediate RASH Verified 02/27/23 14:55 magnesium Allergy Palpitation Verified 02/27/23 14:55 s milk Allergy stomach Verified 02/27/23 14:55 pain, red rash eggs Allergy stomach Uncoded 02/18/23 14:22 pain Home Medications Medication Instructions Recorded Confirmed Last Taken Type Vitamin D (with calcium) 1,000 units PO DAILY 08/30/20 03/21/23 Unknown History carvedilol 3.125 mg tablet 3.125 mg PO DAILY 08/30/20 03/21/23 09/02/20 05:00 History clonazepam 0.5 mg tablet 0.5 mg PO BID 08/30/20 03/21/23 09/02/20 05:00 History clonazepam 1 mg tablet 1 mg PO BEDTIME 08/30/20 03/21/23 Unknown History glipizide 10 mg PO DAILY 08/30/20 03/21/23 Unknown History isosorbide mononitrate 60 mg PO DAILY 08/30/20 03/21/23 09/02/20 05:00 History levothyroxine 50 mcg tablet 50 mcg PO DAILY 08/30/20 03/21/23 09/02/20 05:00 History pregabalin 150 mg capsule 150 mg PO BID 08/30/20 03/21/23 Unknown History rosuvastatin 20 mg PO DAILY 08/30/20 03/21/23 Unknown History aspirin 81 mg tablet,delayed 81 mg PO DAILY 09/26/20 03/21/23 Unknown History release (Adult Low Dose Aspirin) glycerin (adult) 1 supp OK DAILY PRN 06/06/21 06/06/21 Unknown History albuterol sulfate 90 mcg/actuation 2 inh inhalation Q4-6H PRN Spasms 06/27/21 03/21/23 Unknown History breath activated powder inhaler amlodipine 5 mg tablet 5 mg PO DAILY 06/27/21 03/21/23 Unknown History escitalopram oxalate 20 mg tablet 20 mg PO DAILY 06/27/21 03/21/23 Unknown History fluticasone 500 mcg-salmeterol 50 1 inh inhalation BID 06/27/21 03/21/23 Unknown History mcg/dose blistr powdr for inhalation (Advair Diskus) furosemide 20 mg tablet 20 mg PO QAM 06/27/21 03/21/23 Unknown History insulin glargine 100 unit/mL 60 unit subcut DAILY 06/27/21 03/21/23 Unknown History subcutaneous solution (Lantus U-100 Insulin) insulin regular human 100 unit/mL 15 unit subcut TID 06/27/21 03/21/23 Unknown History (3 mL) subcutaneous pen (Novolin R FlexPen) dulaglutide 1.5 mg/0.5 mL 1.5 mg subcut QWEEK 09/03/22 03/21/23 Unknown History subcutaneous pen injector (Trulicity) nebulizers 02/18/23 Unknown History metformin 500 mg tablet 1,000 mg PO BID 02/27/23 03/21/23 Unknown History Exam Exam Date and Time: March 20, 2023 0941 Narrative Narrative: ECHO 12/2022 1. Endocardial borders are limited in some views; therefor WMA cannot be accurately determined. 2. LV size is nml 3. LV wall thickness is nml 4. Diastolic filling pattern is nml 5. LA size is nml 6. RV systolic function is nml. 7. Aortic sclerosis without evidence of stenosis 8. Mild MAC 9. Trace MR 10. No evidence of pulmonary htn 11. Compared with findings of 2020 echo, no real change. NM maranda perf SPECT rest & str 2020 Impression: ? 1.? Myocardial perfusion imaging study shows likely normal myocardial perfusion. No definitive evidence of any ischemia or infarction. 2.? Gated LVEF is 71% during stress and 68% during rest. 3. Transient ischemic dilatation not present. ? EKG component of the test reported separately. Assessment and Plan Final Anesthetic Review Family History of Problems with Anesthesia: No History of Problems with Anesthesia: No Documented by User: Margarita Cinseros MD 03/21/23 09:36 [facility] Past Medical History Medical History Acute hemorrhoid Anxiety Arthritis Asthma Back pain Chronic idiopathic constipation Coronary artery disease Delayed gastric emptying Depression Diabetes Dyspnea GERD (gastroesophageal reflux disease) History of gastroenteritis History of nephrolithiasis History of tachycardia History of uterine cancer Hypertension Hypothyroid Increased BMI Migraine Post-op pain PTSD (post-traumatic stress disorder) Tachycardia Tremors of nervous system Family History Family History Brother Stomach cancer Esophageal cancer Colon cancer Maternal Aunt History of breast cancer Paternal Aunt History of breast cancer Other Cancer Diabetes Heart problem Kidney problem Liver problem Thyroid condition Surgical History Surgical History History of cardiac catheterization History of section History of endoscopy History of hysterectomy Hx of colonoscopy Social History Social History Household Members: Children Household Members Other:: lives with son Alcohol intake: never Patient Tobacco Use Status: Never used Tobacco Current occupational status: disabled Meds Allergies Allergy/AdvReac Type Severity Reaction Status Date / Time latex [LATEX] Allergy Intermediate ITCH/RASH Verified 02/27/23 14:55 Penicillins Allergy Intermediate RASH Verified 02/27/23 14:55 magnesium Allergy Palpitation Verified 02/27/23 14:55 s milk Allergy stomach Verified 02/27/23 14:55 pain, red rash eggs Allergy stomach Uncoded 02/18/23 14:22 pain Home Medications Medication Instructions Recorded Confirmed Last Taken Type Vitamin D (with calcium) 1,000 units PO DAILY 08/30/20 03/21/23 Unknown History carvedilol 3.125 mg tablet 3.125 mg PO DAILY 08/30/20 03/21/23 09/02/20 05:00 History clonazepam 0.5 mg tablet 0.5 mg PO BID 08/30/20 03/21/23 09/02/20 05:00 History clonazepam 1 mg tablet 1 mg PO BEDTIME 08/30/20 03/21/23 Unknown History glipizide 10 mg PO DAILY 08/30/20 03/21/23 Unknown History isosorbide mononitrate 60 mg PO DAILY 08/30/20 03/21/23 09/02/20 05:00 History levothyroxine 50 mcg tablet 50 mcg PO DAILY 08/30/20 03/21/23 09/02/20 05:00 History pregabalin 150 mg capsule 150 mg PO BID 08/30/20 03/21/23 Unknown History rosuvastatin 20 mg PO DAILY 08/30/20 03/21/23 Unknown History aspirin 81 mg tablet,delayed 81 mg PO DAILY 09/26/20 03/21/23 Unknown History release (Adult Low Dose Aspirin) glycerin (adult) 1 supp OK DAILY PRN 06/06/21 06/06/21 Unknown History albuterol sulfate 90 mcg/actuation 2 inh inhalation Q4-6H PRN Spasms 06/27/21 03/21/23 Unknown History breath activated powder inhaler amlodipine 5 mg tablet 5 mg PO DAILY 06/27/21 03/21/23 Unknown History escitalopram oxalate 20 mg tablet 20 mg PO DAILY 06/27/21 03/21/23 Unknown History fluticasone 500 mcg-salmeterol 50 1 inh inhalation BID 06/27/21 03/21/23 Unknown History mcg/dose blistr powdr for inhalation (Advair Diskus) furosemide 20 mg tablet 20 mg PO QAM 06/27/21 03/21/23 Unknown History insulin glargine 100 unit/mL 60 unit subcut DAILY 06/27/21 03/21/23 Unknown History subcutaneous solution (Lantus U-100 Insulin) insulin regular human 100 unit/mL 15 unit subcut TID 06/27/21 03/21/23 Unknown History (3 mL) subcutaneous pen (Novolin R FlexPen) dulaglutide 1.5 mg/0.5 mL 1.5 mg subcut QWEEK 09/03/22 03/21/23 Unknown History subcutaneous pen injector (Trulicity) nebulizers 02/18/23 Unknown History metformin 500 mg tablet 1,000 mg PO BID 02/27/23 03/21/23 Unknown History Exam Airway Mallampati Class: II TM Dist: >3cm Neck ROM: Full Loose/Missing/Broken Teeth: Yes, Upper and Lower Heart: rrr Lungs: cta Assessment and Plan Assessment Anesthesia Assessment: Anesthesia Plan Discussed and Chart Reviewed Final Anesthetic Review NPO: Yes ASA Class: III Final Preanesthetic Review: No Changes in Pt Med Stat, Meds/Allgs Chart Reviewed, Consent Obtained/Reviewed and Anes Risks/Benef Reviewed Patient Risk: Intermediate Procedure Risk: Intermediate Anesthetic Plan Anesthetic Plan: GA Disposition: Standard PACU
[2023-03-21] VITALS (7 sets, daily range): BP systolic 107–133; BP diastolic 58–69; PULSE 73–84; RESP 14–18; TEMP 36.2–36.4; O2SAT 90–95; BMI 34.5
--- NOTE | 2023-03-21 | ECG_ITS ---
Test Reason : DM CAD TACHY Blood Pressure : / mmHG Vent. Rate : 081 BPM Atrial Rate : 081 BPM P-R Int : 166 ms QRS Dur : 094 ms QT Int : 420 ms P-R-T Axes : 018 -19 033 degrees QTc Int : 487 ms Normal sinus rhythm Moderate voltage criteria for LVH, may be normal variant ( R in aVL , [place] product ) Possible Anterior infarct , age undetermined Abnormal ECG When compared to the previous EKG of 11 sep 2020, possible anterior infarct now present Referred By: Bobbi Stovall Electronically Signed By:ELIAN LEE
[2023-03-21 09:03] LABS: Hemoglobin 11.4 g/dl (12.0-16.0); Mean Corpuscular HGB Conc 30.8 g/dl (31.0-35.0); Mean Corpuscular Hemoglobin 26.2 pg (27.0-33.0); Mean Corpuscular Volume 85.1 fL (80.0-98.0); Mean Platelet Volume 10.7 fL (9.4-12.3); Platelet Count 127 X10*3/uL (160-400); Red Blood Count 4.35 X10*6/uL (4.20-5.50); Red Cell Distribution Width 16.1 % (11.0-16.0); White Blood Count 6.3 X10*3/uL (4.8-10.8)
[2023-03-21 09:19] LABS: Anion Gap 15 (12-20); Blood Urea Nitrogen 10 mg/dL (9-16); Calcium 9.3 mg/dL (8.4-10.2); Carbon Dioxide 26 mmol/L (22-29); Chloride 105 mmol/L (96-108); Creatinine Clr Calc Pharmacy 73.5; Estimated Glomerular Filt Rate > 60; Glucose Fasting 140 mg/dL (60-99); Potassium 4.1 mmol/L (3.3-5.1); Sodium 142 mmol/L (135-145)
[2023-03-21] MEDS: Lactated Ringers 1,000 ML 100 ML IVCONT (09:22)
--- NOTE | 2023-03-21 09:42 | MHC.SHP ---
Pre-Procedural Eval Section A Date of Service: 03/21/23 The patient is an INPATIENT: No The History & Physical has been completed within 30 days and I have reviewed it.: Yes Section B Chief Complaint: Hemoptysis Allergies: Allergies Allergy/AdvReac Type Severity Reaction Status Date / Time latex [LATEX] Allergy Intermediate ITCH/RASH Verified 02/27/23 14:55 Penicillins Allergy Intermediate RASH Verified 02/27/23 14:55 magnesium Allergy Palpitation Verified 02/27/23 14:55 s milk Allergy stomach Verified 02/27/23 14:55 pain, red rash eggs Allergy stomach Uncoded 02/18/23 14:22 pain Plan I have reviewed the history and physical and performed a pertinent physical examination on my patient. No changes have occurred unless specified. Time Spent With Patient Time: Total time managing care of this patient today ____ minutes.
[2023-03-21] MEDS: fentaNYL citrate/PF 100 MCG/2 ML VIAL 25 MCG IVPUSH (10:27)
[2023-03-21 11:57] LABS: Glucose, Whole Blood 141 mg/dL (60-115)
--- NOTE | 2023-03-21 12:46 | PM.OP ---
Brief Operative Note Date of Service: 03/21/23 Pre-op diagnosis: hemoptysis Post-op diagnosis: other (Tracheobronchomalecia, no hemoptysis) Procedure: Bronchoscopy with washings Implants: Surgeon: Nick Lofton MD Anesthesia: MAC Was an Contracts Law Professor used for this Procedure?: No Estimated blood loss (mL): 0 Pathology: none sent Condition: stable Disposition: same day
--- NOTE | 2023-04-29 05:25 | OP_ITS ---
DATE OF SERVICE: 03/21/2023 SURGEON: Nick Lofton MD PREOPERATIVE DIAGNOSIS: Hemoptysis. POSTOPERATIVE DIAGNOSIS: Tracheobronchomalacia. No evidence of any hemoptysis. PROCEDURE PERFORMED: Bronchoscopy with washings. ESTIMATED BLOOD LOSS: COMPLICATIONS: ANESTHESIA: MAC. ASSISTANTS: SPECIMENS: ASA CLASSIFICATION: 2. DESCRIPTION OF PROCEDURE: After the patient was adequately sedated, a flexible digital bronchoscope was inserted in the oral airway to the level of the larynx. The vocal cords moved symmetrically to the midline. No endobronchial lesions, masses noted. After instilling lidocaine, the bronchoscope was then passed the vocal cords to the level of the trachea. The patient did have some secretions in the trachea which were mucoid in appearance and mild to moderate in amount. The patient did have significant evidence of tracheomalacia in the proximal, mid and also distal trachea. When forced exhalation or coughing, the patient did have significant obstruction to about 90% to 95% of the airway. After instilling additional lidocaine, the bronchoscope was navigated to the entire tracheobronchial tree. No evidence of any endobronchial lesions or masses. The patient did have mucoid secretions, moderate amount and no evidence of any active bleeding. After bronchial washings were collected bilaterally, the bronchoscope was then removed. The total endoscopic time was approximately 8 minutes. No complications noted. MD SILVIANO Roy/FARZAD / [id number]
== END 2023-03-21 11:51 | disposition home or self-care (01) ==
LOC: HO.SSS 11:05
PROVIDERS: Nurse Practitioner; PCP General Practice; Visit Provider Hospitalist
PROC: 0BJ08ZZ Inspection of Tracheobronchial Tree, Via Natural or Artificial Opening Endoscopic (ICD-10-PCS; CPT 31622; principal; 2023-03-21 09:40)
DX: J39.8 Other specified diseases of upper respiratory tract (principal); J45.909 Unspecified asthma, uncomplicated; G47.33 Obstructive sleep apnea (adult) (pediatric); R06.00 Dyspnea, unspecified; R25.1 Tremor, unspecified; E11.9 Type 2 diabetes mellitus without complications; I10 Essential (primary) hypertension; I25.10 Atherosclerotic heart disease of native coronary artery without angina pectoris; F32.A Depression, unspecified; Z79.4 Long term (current) use of insulin; Z79.51 Long term (current) use of inhaled steroids; Z79.899 Other long term (current) drug therapy; Z79.82 Long term (current) use of aspirin; Z91.040 Latex allergy status; Z88.0 Allergy status to penicillin
CPT/HCPCS: 31622; 36415; 80048; 82947; 85027; 87070; 87077; 87186; 87205; 93005; J0171; J2250; J3010

== ENCOUNTER 2023-03-26 14:56 | Outpatient (REF) | payer MEDICAID, SELFPAY ==
--- NOTE | ~2023-03-26 | CT_ITS ---
EXAMINATION: CT CHEST WITHOUT CONTRAST CLINICAL INFORMATION: Hemoptysis COMPARISON: Previous chest x-ray November 2022 TECHNIQUE: Multidetector volumetric CT imaging of the chest was done. Axial MIP volume rendering provided. Sagittal and coronal reformatted images were obtained. This CT examination was performed using dose optimization techniques as appropriate, variously including the following: *Automated exposure control *Adjustment of mA and/or kV according to patient size (this includes techniques or standardized protocols for targeted exams where dose is matched to indication/reason for exam; i.e. extremities or head) *Use of iterative reconstruction technique DLP: 281 mGy-cm FINDINGS: LUNGS: 4 mm right upper lobe nodule axial image 78 series 6. Adjacent smaller 2 mm right upper lobe peripheral or subpleural nodule axial image 82 and 87 series 6. Small 2 mm right upper lobe nodule axial image 96 and 97. Small 2 mm right upper lobe nodule axial image 102 series 6. 4 mm peripheral or subpleural right middle lobe nodule adjacent to the major fissure axial image 110. 3 mm right lower lobe nodule axial image 4 series 6. 3 mm right middle lobe nodule axial image 132 series 6. 2 mm right lower lobe nodule axial image 1. There is heterogeneous attenuation in the dependent bilateral lower lobes question representing dependent atelectasis versus mosaic attenuation from airways disease. No endobronchial or endotracheal lesion.. MEDIASTINUM: Upper normal-size heart. Small esophageal hernia. The mediastinum is otherwise normal. CORONARY ARTERY CALCIFICATION: Mild PLEURA: There is no pleural effusion. No pleural mass or thickening. AXILLA: Small bilateral axillary lymph nodes. No enlarged lymph nodes or chest wall mass. UPPER ABDOMEN: Fatty liver. Prominent spleen. OSSEOUS STRUCTURES: Mild degenerative changes of the spine. CT/CT chest wo IV con IMPRESSION: Small right pulmonary nodules, largest measuring 4 mm in the right upper lobe. According to the UPDATED 2017 Fleischner Society recommendations, the advised follow-up imaging for less than 6 mm solid nodule: Low risk, no chest CT follow-up and high risk, optional chest CT follow-up in one year. Fatty liver and probable hepatosplenomegaly. Fleischner guidelines were followed.
== END 2023-03-26 14:57 | disposition home or self-care (01) ==
LOC: HO.CT 14:56
PROVIDERS: Visit Provider Hospitalist
DX: R04.2 Hemoptysis (principal)
CPT/HCPCS: 71250

== ENCOUNTER → 2023-04-04 11:10 | Outpatient (BNVA) | payer MEDICAID, SELFPAY | PROVIDERS: PCP General Practice; Visit Provider Hospitalist | DX: G47.33 Obstructive sleep apnea (adult) (pediatric) (principal); K21.9 Gastro-esophageal reflux disease without esophagitis; R06.00 Dyspnea, unspecified | CPT/HCPCS: 99212 ==

== ENCOUNTER 2023-04-10 13:58 | Outpatient (REF) | payer MEDICAID, SELFPAY ==
--- NOTE | ~2023-04-10 | MM_ITS ---
EXAMINATION: MM SCREENING DIGITAL BREAST TOMOSYNTHESIS, BILATERAL CLINICAL INFORMATION: Screening. Asymptomatic. The lifetime risk of breast cancer based on the Tyrer-Cuzick Model is 10%. COMPARISON: Mammography: 03/07/2022, 07/01/2020, 11/10/2019, 03/19/2019 TECHNIQUE: Digital breast tomosynthesis is performed in both the craniocaudal and mediolateral oblique views along with computer-aided detection (CAD). Synthesized 2D images are generated from the tomosynthesis. FINDINGS: There are scattered areas of fibroglandular density (ACR BI-RADS breast composition Category b). There are no significant masses, abnormal calcifications, or other abnormalities. Parenchymal pattern is similar to prior studies. There is no developing density or architectural abnormality. The axilla and skin contours are unremarkable. No significant changes. MM/MM tomosynthesis screening BI IMPRESSION: No mammographic evidence of malignancy. ASSESSMENT: BI-RADS 1: Negative RECOMMENDATION: Routine annual mammography screening. This patient's information was entered into a reminder system with a target due date for their next mammogram.
== END 2023-04-10 13:59 | disposition home or self-care (01) ==
LOC: HO.MAMMO 13:58
PROVIDERS: PCP General Practice; Visit Provider Advanced Practice Midwife
DX: Z12.31 Encounter for screening mammogram for malignant neoplasm of breast (principal)
CPT/HCPCS: 77063; 77067

== ENCOUNTER → 2023-05-01 22:07 | Outpatient (REF) | payer MEDICAID, SELFPAY | LOC: HO.SL 22:07 | PROVIDERS: PCP General Practice; Visit Provider Hospitalist | DX: G47.33 Obstructive sleep apnea (adult) (pediatric) (principal); G47.34 Idiopathic sleep related nonobstructive alveolar hypoventilation | CPT/HCPCS: 95810 ==

== ENCOUNTER 2023-07-17 12:33 | Outpatient (REF) | payer MEDICAID, SELFPAY ==
[2023-07-18 14:46] LABS: Influenza A PCR NEGATIVE (Negative); Influenza B PCR NEGATIVE (Negative); Resp Syncy Virus RNA Qual PCR NEGATIVE (Negative); SARS COV2 PCR INHOUSE NEGATIVE (Negative)
== END 2023-07-17 12:34 | disposition home or self-care (01) ==
LOC: HO.HHCLNP 12:33
PROVIDERS: Visit Provider Family Medicine
DX: Z20.822 Contact with and (suspected) exposure to COVID-19 (principal); J02.8 Acute pharyngitis due to other specified organisms; B97.89 Other viral agents as the cause of diseases classified elsewhere; L03.032 Cellulitis of left toe
CPT/HCPCS: 0241U; 87070; 87205

== ENCOUNTER 2023-07-19 18:38 | Outpatient (REF) | payer MEDICAID, SELFPAY | END 2023-07-19 18:39 | disposition home or self-care (01) | LOC: HO.LNP 18:38 | PROVIDERS: Visit Provider Emergency Medicine | DX: L03.032 Cellulitis of left toe (principal) | CPT/HCPCS: 87070; 87077; 87186; 87205 ==

== ENCOUNTER 2023-07-26 13:15 | Outpatient (AMB) | payer MEDICAID, SELFPAY ==
[2023-07-26 13:24] VITALS: PULSE 89; O2SAT 94; BMI 33.7
--- NOTE | 2023-07-26 13:24 | MHC.OFFVIS ---
Intake Vital Signs 07/26/23 13:24 Height 5 ft 3 in Weight 190 lb BMI 33.7 Pulse 89 Pulse Source Pulse Oximeter Pulse Oximetry (%) 94 Oxygen Delivery Method Room Air Intake Visit Reasons: hemoptysis Curb Worker Required: No Allergies latex [LATEX] Allergy (Intermediate, Verified 07/26/23 13:25) ITCH/RASH Penicillins Allergy (Intermediate, Verified 07/26/23 13:25) RASH magnesium Allergy (Verified 07/26/23 13:25) Palpitations milk Allergy (Verified 07/26/23 13:25) stomach pain, red rash eggs Allergy (Uncoded 07/26/23 13:25) stomach pain HPI HPI Comments History of Present Illness Details The patient is a 58-year-old woman with a known history of diabetes and gastroparesis and history of asthma. She has been on Advair 500 for many years. She does have a rescue inhaler that she uses on a daily basis. She has been developing worsening shortness of breath with activity. Moderate severity. Does get better with rest. She also has a cough that is sometimes gags her. Pulmonary evaluation standpoint she did undergo pulmonary function studies back about a month ago demonstrating some small airways disease but otherwise no obstructive nor restrictive ventilatory defects. In addition to that she had a full cardiac workup with an echocardiogram and also a cardiac nuclear stress test. Those were okay per report. In the meantime she has been struggling with her gastroparesis and reflux disease. The followed closely by GI. Indeed she may have a component of micro aspirations as she describes regurgitation while she is sleeping the sometimes comes on her nose. In addition to that she is on lisinopril for her blood pressure and also for likely renal protection. While I was evaluating the patient appears that she has a tremor. She has been on Reglan. She does take a small dose of Reglan but with the tremor will be crucial to take her off it in case she does develop irreversible tremors. Therefore, we talked about other promotility agents that she can use the potentially can help her lungs as well. She is willing to try the azithromycin. However she does use SSRI so we have to check an EKG to make sure that her QT is stable. 10/02/2021 the patient is here for a pulmonary follow-up visit. Since we last spoke she is doing a little better. She is tolerating the Symbicort well. Her breathing has improved. She still has coughing episodes. [id number] severity. And has to do with her reflux disease. We had to switch her from the Reglan to azithromycin for promotility due to her tremors. She continues to have some tremors but hopefully they will subside. She needs to get an EKG to assess her QT hopefully she can do that in the coming weeks. in the meantime she continues with the reflux diet. Again I emphasized that she needs to sleep elevated. However she cannot sleep supine. I did recommend she get risers for the head of the bed so she can sleep on her side and still maintain the head of bed elevated. the patient did have a chest x-ray and also blood work which we reviewed. 09/03/2022 the patient is here for a pulmonary follow-up visit. The patient still has multiple complaints. She has been coughing more. She states that she was coughing up some blood recently. however, none in the last few days. Denies any fevers or chills. Hard to know for sure if he coughs up the bladder if he vomited. She states that it was mixed in with some tissue or food. The patient does have significant gastroparesis. She has responded well to the azithromycin 3 times a week as a promotility agent. Initially I did recommend she stop it and then she became concerned because the medication has been helping. Patient understands that it can affect her QT conduction and therefore she needs to have an EKG she is going to continue the medicine. We talked about the other promotility agents but, she would tolerate regular due to her significant tremors. The patient has been sleeping on the sofa because she cannot sleep in her bed. She has significant snoring. The patient does wake up tired even after a full night's sleep. Her [place] score is elevated 13/24. The patient needs to undergo home sleep study at this time. She continues her respiratory therapy with good effect. The patient will benefit from a nebulizer machine in order to better administered the respiratory medications and provide bronchopulmonary hygiene to clear mucus production. prior to leaving today from the hospital to undergo a chest x-ray to make sure there is no and developing at this time if she does have an abnormal chest x-ray I will call her in order to request a CT scan of the chest. 11/16/2022 the patient is here for pulmonary follow-up visit. The patient still having some difficulty with headaches in addition to difficulty sleeping. The patient did have elevated daytime drowsiness with an elevated [place] score. Although her sleep study did not demonstrate significant sleep apnea. The patient does have underlying obstructive airway disease. A possibly the patient has significant nocturnal hypoxia. I will go ahead and perform an overnight oximetry at this time. If the patient qualifies and will start her on oxygen nighttime. She does continue to use respiratory therapy with good effect. Denies any recent exacerbations. Denies any further hemoptysis. 02/18/2023 the patient is here for a pulmonary follow-up visit. She still complaining off her cough and also hemoptysis. Is typically that be mucus is blood tinged. Usually the blood is mixed in with sputum. [id number] severity. Sometimes she gags when their own mucus and she needs to make CT clear remove the mucus out of her throat with her fingers. She does have issues with her swallow. The patient sometimes cannot protect her swallow. She did have a modified barium swallow back in 2020 that demonstrated some anomalies but no obvious penetration into her larynx. In view of the recurrent hemoptysis the patient did have a chest x-ray without any acute disease. Will go ahead and request a CT scan to further address the issue. In regards her issues with her secretions we did talk about a bronchoscopy once we have the CT scan in order to further address her airway issues gets in deep cultures to make sure she does not have a smoldering infection and make sure she is not does not have an endobronchial lesion that is causing the intermittent bleeding. Will have her follow-up after the CT scan a bronchoscopy at this time. She is using the oxygen at nighttime with good effect. She is planning a trip to [place]. I did recommend she call the [facility] to talked about options about using the oxygen when she arrives to her destination. 04/04/2023 The patient is here for a pulmonary follow up visit. The patient underwent a bronchoscopy. + evidence of tracheomalecia, moderate to severe. Her cultures were also positive for MRSA. The patient was started on Bactrim. Her cough is better. Has been complaining or sore throat she does have thrush right now. The patient does have daytime drowsiness. [place] score is elevated, the 11/03. The patient does use oxygen at nighttime for nocturnal hypoxia. Therefore will request an in-lab sleep study to address the question sleep apnea in to starting CPAP therapy. I do believe the positive airway pressure therapy will also help with her tracheomalacia. The patient needs better mucus clearance specially with severe tracheomalacia. Will provide with an Acapella valve to help with mucus clearance and provide good pulmonary hygiene. 07/26/2023 the patient is here for a pulmonary follow-up visit. Since we last spoke the patient did have a in-lab sleep study. We did review the results. The patient had a very limited study as she had a hard time sleeping. She did desaturate requiring the oxygen. Although her AHI was only 3. The patient did not qualify for CPAP. I do believe that this was a very poor study from her and that we will have to help with her sleep hygiene and then consider repeating the study. The patient has significant tracheobronchomalacia and also has significant daytime drowsiness. [place] still elevated 10/24. I do believe she will benefit from CPAP. Therefore, will work on her sleep and then consider repeating the sleep study the next time she arise. Patient also is using oxygen but it does fall off and sometimes causes significant dryness. She also been to try a oxygen mask. I will request 1 from the [facility]. She continues use her respiratory therapy. The patient has some chest fullness at this time. Respiratory exam is relatively normal. However, she does have significant tracheomalacia and also has his history of Staph colonization. Therefore she will continue with chest physical therapy. If the patient develops worsening chest congestion she will call in will consider giving her additional therapies. [facility] Medical History (Updated 07/28/23 @ 23:08 by Nikc Lofton MD) Tracheomalacia Nocturnal hypoxia History of nephrolithiasis Tremors of nervous system Dyspnea PTSD (post-traumatic stress disorder) Delayed gastric emptying Chronic idiopathic constipation Post-op pain Acute hemorrhoid Increased BMI Anxiety History of uterine cancer Arthritis Back pain History of gastroenteritis Hypothyroid Diabetes GERD (gastroesophageal reflux disease) Depression Migraine Asthma History of tachycardia Tachycardia Coronary artery disease Hypertension Surgical History Hx of colonoscopy History of endoscopy History of section History of cardiac catheterization History of hysterectomy Family History Brother Stomach cancer Esophageal cancer Colon cancer Maternal Aunt History of breast cancer Paternal Aunt History of breast cancer Other Cancer Diabetes Heart problem Kidney problem Liver problem Thyroid condition Social History Household Members: Children Household Members Other:: lives with son Alcohol intake: never Patient Tobacco Use Status: Never used Tobacco Current occupational status: disabled Review of Systems Const Reports daytime sleepiness, Reports difficulty sleeping, Denies night sweats and Reports snoring ENT Denies change in voice, Reports dysphagia, Denies lip swelling, Denies mouth pain, Reports nasal congestion, Reports nasal discharge and Denies tongue swelling Card Denies chest pain and Reports dyspnea on exertion Resp Denies change in phlegm color, Reports chest congestion, Reports cough, Reports hemoptysis, Reports excessive phlegm production, Reports dyspnea on exertion and Reports snoring GI Denies abdominal pain, Reports dysphagia, Reports early satiety, Reports dyspepsia and Reports heartburn Musc Denies no additional complaints and Reports abnormal gait Neuro Denies Neuro-related abnormal movements, Reports abnormal gait and Reports paresthesias Psych Denies no additional complaints Omar/Lymph Denies easy bleeding and Denies lymphadenopathy Aller/Immun Denies lip swelling and Denies tongue swelling Physical Exam Vital Signs: Last Vital Signs Pulse 89 07/26/23 13:24 Pulse Ox 94 07/26/23 13:24 Oxygen Delivery Method Room Air 07/26/23 13:24 BMI result Body Mass Index 33.7 Const General: alert HEENT General nose exam: Abnormal external nose present and Nasal discharge present Eyes Pupils: Equal, round and reactive pupils present Neck Neck: Yes normal visual inspection, Yes full ROM and Yes no lymphadenopathy Chest Chest palpation & inspection: normal inspection of the chest Resp Auscultation: diminished lung sounds Cardio Rate: regular rate Rhythm: regular rhythm Heart sounds: S1 normal heart sound present and S2 normal heart sound present GI Palpation (GI): Soft to palpation and nontender Auscultation: normal bowel sounds General: Yes no CVA tenderness Back/Spine/Pelvis Back: no CVA tenderness Skin General skin exam: rashes and/or lesions noted Neuro Cranial nerves: Yes Equal, round and reactive pupils present Immunizations pneumoc 20-david conj-dip cr(PF) 0.5 mL IM syringe Performing Provider: Nick Lofton MD Performing Location: [facility] Administered by: Nevin Lawson LPN on 07/26/23 13:45 Dose Route Admin Location Dispensed Lot Number Expiration Date NDC [employer] 0.5 mL IM Left Deltoid 0.5 mL [id number] 09/10/24 6453-2984-55 [email or web address] VIS Given Date VIS Provided VIS Publication Date 07/26/23 Single Vaccine 23 Eligibility Eligibility Date Funding Source Not [facility] Eligible 07/26/23 Private Assessment & Plan Assessment & Plan (1) JENNYFER (obstructive sleep apnea): Code(s): G47.33 - Obstructive sleep apnea (adult) (pediatric) (2) Dyspnea: Code(s): R06.00 - Dyspnea, unspecified Qualifiers: Dyspnea type: dyspnea on exertion Qualified Code(s): R06.09 - Other forms of dyspnea (3) GERD (gastroesophageal reflux disease): Code(s): K21.9 - Gastro-esophageal reflux disease without esophagitis Qualifiers: Esophagitis presence: without esophagitis Qualified Code(s): K21.9 - Gastro-esophageal reflux disease without esophagitis (4) Tracheomalacia: Code(s): J39.8 - Other specified diseases of upper respiratory tract (5) Nocturnal hypoxia: Code(s): G47.34 - Idiopathic sleep related nonobstructive alveolar hypoventilation Plan continue oxygen at night, requesting oxygen mask, needs to have the DME check her concentrator will need an in lab sleep study in the near future CPT with acapella valve and nebulizer pneumonia vaccine F/U 3-4 months Orders: Orders Pneumococcal 20 Immunization 07/26/23 Z23 - Encounter for immunization Coding Level of Care Code Est Pt Level 4 (03921) Diagnoses JENNYFER (obstructive sleep apnea) G47.33 Dyspnea on exertion R06.09 Dyspnea type: dyspnea on exertion Gastroesophageal reflux disease without esophagitis K21.9 Esophagitis presence: without esophagitis Tracheomalacia J39.8 Nocturnal hypoxia G47.34 Time Spent (min) 17
== END 2023-07-26 13:46 | disposition home or self-care (01) ==
PROVIDERS: PCP General Practice; Visit Provider Hospitalist
DX: G47.33 Obstructive sleep apnea (adult) (pediatric) (principal); R06.09 Other forms of dyspnea; K21.9 Gastro-esophageal reflux disease without esophagitis; J39.8 Other specified diseases of upper respiratory tract; G47.34 Idiopathic sleep related nonobstructive alveolar hypoventilation
CPT/HCPCS: 99214

== ENCOUNTER → 2023-07-26 13:15 | Outpatient (BNVA) | payer MEDICAID, SELFPAY | PROVIDERS: PCP General Practice; Visit Provider Hospitalist | DX: Z23 Encounter for immunization (principal); G47.33 Obstructive sleep apnea (adult) (pediatric); G47.34 Idiopathic sleep related nonobstructive alveolar hypoventilation; J39.8 Other specified diseases of upper respiratory tract; R06.09 Other forms of dyspnea | CPT/HCPCS: 90471; 90677; 99212 ==

== ENCOUNTER 2024-01-10 15:58 | Outpatient (REF) | payer MEDICAID, SELFPAY ==
--- NOTE | ~2024-01-10 | XR_ITS ---
EXAMINATION: XR CHEST CLINICAL INFORMATION: Chronic cough, hemoptysis. COMPARISON: None available. TECHNIQUE: 2 views of the chest were obtained. FINDINGS: No significant abnormality is noted involving the heart, lungs, mediastinum, bony thorax or soft tissues. XR/XR chest 2V IMPRESSION: Unremarkable chest examination.
== END 2024-01-10 15:59 | disposition home or self-care (01) ==
LOC: HO.HHCX 15:58
PROVIDERS: Visit Provider Student in an Organized Health Care Education/Training Program
DX: R05.3 Chronic cough (principal); R04.2 Hemoptysis
CPT/HCPCS: 71046

== ENCOUNTER 2024-04-21 15:21 | Outpatient (AMB) | payer MEDICAID, SELFPAY ==
--- NOTE | 2024-04-21 15:27 | A.OFFVIS_ITS ---
Vital Signs 04/21/24 15:28 Height 5 ft 3 in Weight 189 lb BMI 33.5 Pulse 90 Pulse Source Pulse Oximeter Pulse Oximetry (%) 95 Oxygen Delivery Method Room Air Intake Visit Reasons: hemoptysis Chemistry Quality Control Technician Required: No Allergies latex [LATEX] Allergy (Intermediate, Verified 04/21/24 15:29) ITCH/RASH Penicillins Allergy (Intermediate, Verified 04/21/24 15:29) RASH magnesium Allergy (Verified 04/21/24 15:29) Palpitations milk Allergy (Verified 04/21/24 15:29) stomach pain, red rash eggs Allergy (Uncoded 04/21/24 15:29) stomach pain HPI Comments Details: The patient is a 58-year-old woman with a known history of diabetes and gastroparesis and history of asthma. She has been on Advair 500 for many years. She does have a rescue inhaler that she uses on a daily basis. She has been developing worsening shortness of breath with activity. Moderate severity. Does get better with rest. She also has a cough that is sometimes gags her. Pulmonary evaluation standpoint she did undergo pulmonary function studies back about a month ago demonstrating some small airways disease but otherwise no obstructive nor restrictive ventilatory defects. In addition to that she had a full cardiac workup with an echocardiogram and also a cardiac nuclear stress test. Those were okay per report. In the meantime she has been struggling with her gastroparesis and reflux disease. The followed closely by GI. Indeed she may have a component of micro aspirations as she describes regurgitation while she is sleeping the sometimes comes on her nose. In addition to that she is on lisinopril for her blood pressure and also for likely renal protection. While I was evaluating the patient appears that she has a tremor. She has been on Reglan. She does take a small dose of Reglan but with the tremor will be crucial to take her off it in case she does develop irreversible tremors. Therefore, we talked about other promotility agents that she can use the potentially can help her lungs as well. She is willing to try the azithromycin. However she does use SSRI so we have to check an EKG to make sure that her QT is stable. 10/02/2021 the patient is here for a pulmonary follow-up visit. Since we last spoke she is doing a little better. She is tolerating the Symbicort well. Her breathing has improved. She still has coughing episodes. [id number] severity. And has to do with her reflux disease. We had to switch her from the Reglan to azithromycin for promotility due to her tremors. She continues to have some tremors but hopefully they will subside. She needs to get an EKG to assess her QT hopefully she can do that in the coming weeks. in the meantime she continues with the reflux diet. Again I emphasized that she needs to sleep elevated. However she cannot sleep supine. I did recommend she get risers for the head of the bed so she can sleep on her side and still maintain the head of bed elevated. the patient did have a chest x-ray and also blood work which we reviewed. 09/03/2022 the patient is here for a pulmonary follow-up visit. The patient still has multiple complaints. She has been coughing more. She states that she was coughing up some blood recently. however, none in the last few days. Denies any fevers or chills. Hard to know for sure if he coughs up the bladder if he vomited. She states that it was mixed in with some tissue or food. The patient does have significant gastroparesis. She has responded well to the azithromycin 3 times a week as a promotility agent. Initially I did recommend she stop it and then she became concerned because the medication has been helping. Patient understands that it can affect her QT conduction and therefore she needs to have an EKG she is going to continue the medicine. We talked about the other promotility agents but, she would tolerate regular due to her significant tremors. The patient has been sleeping on the sofa because she cannot sleep in her bed. She has significant snoring. The patient does wake up tired even after a full night's sleep. Her [place] score is elevated 13/24. The patient needs to undergo home sleep study at this time. She continues her respiratory therapy with good effect. The patient will benefit from a nebulizer machine in order to better administered the respiratory medications and provide bronchopulmonary hygiene to clear mucus production. prior to leaving today from the hospital to undergo a chest x-ray to make sure there is no and developing at this time if she does have an abnormal chest x-ray I will call her in order to request a CT scan of the chest. 11/16/2022 the patient is here for pulmonary follow-up visit. The patient still having some difficulty with headaches in addition to difficulty sleeping. The patient did have elevated daytime drowsiness with an elevated [place] score. Although her sleep study did not demonstrate significant sleep apnea. The patient does have underlying obstructive airway disease. A possibly the patient has significant nocturnal hypoxia. I will go ahead and perform an overnight oximetry at this time. If the patient qualifies and will start her on oxygen nighttime. She does continue to use respiratory therapy with good effect. Denies any recent exacerbations. Denies any further hemoptysis. 02/18/2023 the patient is here for a pulmonary follow-up visit. She still c omplaining off her cough and also hemoptysis. Is typically that be mucus is blood tinged. Usually the blood is mixed in with sputum. [id number] severity. Sometimes she gags when their own mucus and she needs to make CT clear remove the mucus out of her throat with her fingers. She does have issues with her swallow. The patient sometimes cannot protect her swallow. She did have a modified barium swallow back in 2020 that demonstrated some anomalies but no obvious penetration into her larynx. In view of the recurrent hemoptysis the patient did have a chest x-ray without any acute disease. Will go ahead and request a CT scan to further address the issue. In regards her issues with her secretions we did talk about a bronchoscopy once we have the CT scan in order to further address her airway issues gets in deep cultures to make sure she does not have a smoldering infection and make sure she is not does not have an endobronchial lesion that is causing the intermittent bleeding. Will have her follow-up after the CT scan a bronchoscopy at this time. She is using the oxygen at nighttime with good effect. She is planning a trip to [place]. I did recommend she call the [employer] to talked about options about using the oxygen when she arrives to her destination. 04/04/2023 The patient is here for a pulmonary follow up visit. The patient underwent a bronchoscopy. + evidence of tracheomalecia, moderate to severe. Her cultures were also positive for MRSA. The patient was started on Bactrim. Her cough is better. Has been complaining or sore throat she does have thrush right now. The patient does have daytime drowsiness. [place] score is elevated, the 11/03. The patient does use oxygen at nighttime for nocturnal hypoxia. Therefore will request an in-lab sleep study to address the question sleep apnea in to starting CPAP therapy. I do believe the positive airway pressure therapy will also help with her tracheomalacia. The patient needs better mucus clearance specially with severe tracheomalacia. Will provide with an Acapella valve to help with mucus clearance and provide good pulmonary hygiene. 07/26/2023 the patient is here for a pulmonary follow-up visit. Since we last spoke the patient did have a in-lab sleep study. We did review the results. The patient had a very limited study as she had a hard time sleeping. She did desaturate requiring the oxygen. Although her AHI was only 3. The patient did not qualify for CPAP. I do believe that this was a very poor study from her and that we will have to help with her sleep hygiene and then consider repeating the study. The patient has significant tracheobronchomalacia and also has significant daytime drowsiness. [place] still elevated 09/03. I do believe she will benefit from CPAP. Therefore, will work on her sleep and then consider repeating the sleep study the next time she arise. Patient also is using oxygen but it does fall off and sometimes causes significant dryness. She also been to try a oxygen mask. I will request 1 from the [employer]. She continues use her respiratory therapy. The patient has some chest fullness at this time. Respiratory exam is relatively normal. However, she does have significant tracheomalacia and also has his history of Staph colonization. Therefore she will continue with chest physical therapy. If the patient develops worsening chest congestion she will call in will consider giving her additional therapies. 04/21/2024 the patient is here for a pulmonary follow-up visit. She had multiple complaints. The patient did have issues with epistaxis primarily from the right nostril. She has been concerned because she has had twice and it bothers her because she is concerned that she is going to start breathing and choke. The patient also has been concerned about her tracheomalacia feeling like her trachea is going to close up and she will be able to breathe in have a bad outcome. The patient has also been choking up with secretions. Hard to cough. Moderate severity. Will go ahead and start her on azithromycin to try to help her with chronic bronchitis and mucus secretions specially with the tracheobronchomalacia. She will try [place] for lubricating her nose with the hopes that that would reduce some of the epistaxis. She will continue to use the oxygen at nighttime as is been affecting beneficial. In the meantime the patient did have a CT scan of the chest back in 03/30/2023 demonstrating numerous pulmonary nodules measuring from 2-4 mm in size. The patient should get another CAT scan at this time to address those findings. She will follow-up with me after her CT scan. If the patient has any worsening issues prior to the visit she will call for an earlier assessment. [facility] Medical History (Updated 04/21/24 @ 23:42 by Nick Lofton MD) Pulmonary nodules Asthma-COPD overlap syndrome Tracheomalacia Nocturnal hypoxia History of nephrolithiasis Tremors of nervous system Dyspnea PTSD (post-traumatic stress disorder) Delayed gastric emptying Chronic idiopathic constipation Post-op pain Acute hemorrhoid Increased BMI Anxiety History of uterine cancer Arthritis Back pain History of gastroenteritis Hypothyroid Diabetes GERD (gastroesophageal reflux disease) Depression Migraine Asthma History of tachycardia Tachycardia Coronary artery disease Hypertension Surgical History Hx of colonoscopy History of endoscopy History of section History of cardiac catheterization History of hysterectomy Family History Brother Stomach cancer Esophageal cancer Colon cancer Maternal Aunt History of breast cancer Paternal Aunt History of breast cancer Other Cancer Diabetes Heart problem Kidney problem Liver problem Thyroid condition Social History Household Members: Children Household Members Other:: lives with son Alcohol intake: never Patient Tobacco Use Status: Never used Tobacco Current occupational status: disabled Review of Systems Const Reports daytime sleepiness, Reports difficulty sleeping, Denies night sweats and Reports snoring ENT Denies change in voice, Reports dysphagia, Denies lip swelling, Denies mouth pain, Reports nasal congestion, Reports nasal discharge and Denies tongue swelling Card Denies chest pain and Reports dyspnea on exertion Resp Denies change in phlegm color, Reports chest congestion, Reports cough, Reports hemoptysis, Reports excessive phlegm production, Reports dyspnea on exertion and Reports snoring GI Denies abdominal pain, Reports dysphagia, Reports early satiety, Reports dyspepsia and Reports heartburn Musc Denies no additional complaints and Reports abnormal gait Neuro Denies Neuro-related abnormal movements, Reports abnormal gait and Reports paresthesias Psych Denies no additional complaints Omar/Lymph Denies easy bleeding and Denies lymphadenopathy Aller/Immun Denies lip swelling and Denies tongue swelling Physical Exam Vital Signs: Last Vital Signs Pulse 90 04/21/24 15:28 Pulse Ox 95 04/21/24 15:28 Oxygen Delivery Method Room Air 04/21/24 15:28 BMI result Body Mass Index 33.5 Const General: alert HEENT General nose exam: Abnormal external nose present and Nasal discharge present Eyes Pupils: Equal, round and reactive pupils present Neck Neck: Yes normal visual inspection, Yes full ROM and Yes no lymphadenopathy Chest Chest palpation & inspection: normal inspection of the chest Resp Auscultation: diminished lung sounds Cardio Rate: regular rate Rhythm: regular rhythm Heart sounds: S1 normal heart sound present and S2 normal heart sound present GI Palpation (GI): Soft to palpation and nontender Auscultation: normal bowel sounds General: Yes no CVA tenderness Back/Spine/Pelvis Back: no CVA tenderness Skin General skin exam: rashes and/or lesions noted Neuro Cranial nerves: Yes Equal, round and reactive pupils present Assessment & Plan Assessment & Plan (1) JENNYFER (obstructive sleep apnea): Code(s): G47.33 - Obstructive sleep apnea (adult) (pediatric) Category: Medical (2) Dyspnea: Code(s): R06.00 - Dyspnea, unspecified Category: Medical Qualifiers: Dyspnea type: dyspnea on exertion Qualified Code(s): R06.09 - Other forms of dyspnea (3) GERD (gastroesophageal reflux disease): Code(s): K21.9 - Gastro-esophageal reflux disease without esophagitis Category: Medical Qualifiers: Esophagitis presence: without esophagitis Qualified Code(s): K21.9 - Gastro-esophageal reflux disease without esophagitis (4) Tracheomalacia: Code(s): J39.8 - Other specified diseases of upper respiratory tract Category: Medical (5) Nocturnal hypoxia: Code(s): G47.34 - Idiopathic sleep related nonobstructive alveolar hypoventilation Category: Medical (6) Pulmonary nodules: Code(s): R91.8 - Other nonspecific abnormal finding of lung field Category: Medical Plan continue oxygen at night, requesting oxygen mask water base lubricant CPT with acapella valve and nebulizer start Azithromycin MWF CT chest F/U 3-4 months Orders: Orders CT chest wo IV con 2 Months R91.8 - Other nonspecific abnormal finding of lung field Medications: New azithromycin Take 1 tablet on Saturday/Saturday/Saturday 250 mg PO 3XW 12 tabs 3RF 28 days K21.9 - Gastro-esophageal reflux disease without esophagitis Coding Level of Care Code Est Pt Level 4 (21194) Diagnoses JENNYFER (obstructive sleep apnea) G47.33 Dyspnea on exertion R06.09 Dyspnea type: dyspnea on exertion Gastroesophageal reflux disease without esophagitis K21.9 Esophagitis presence: without esophagitis Tracheomalacia J39.8 Nocturnal hypoxia G47.34 Pulmonary nodules R91.8 Time Spent (min) 17
[2024-04-21 15:28] VITALS: PULSE 90; O2SAT 95; BMI 33.5
== END 2024-04-21 16:00 | disposition home or self-care (01) ==
PROVIDERS: PCP General Practice; Referring Provider General Practice; Visit Provider Hospitalist
DX: G47.33 Obstructive sleep apnea (adult) (pediatric) (principal); R06.09 Other forms of dyspnea; K21.9 Gastro-esophageal reflux disease without esophagitis; J39.8 Other specified diseases of upper respiratory tract; G47.34 Idiopathic sleep related nonobstructive alveolar hypoventilation; R91.8 Other nonspecific abnormal finding of lung field
CPT/HCPCS: 99214

== ENCOUNTER → 2024-04-21 15:21 | Outpatient (BNVA) | payer MEDICAID, SELFPAY | PROVIDERS: PCP General Practice; Visit Provider Hospitalist | DX: J39.8 Other specified diseases of upper respiratory tract (principal); G47.33 Obstructive sleep apnea (adult) (pediatric); G47.34 Idiopathic sleep related nonobstructive alveolar hypoventilation; R06.09 Other forms of dyspnea; K21.9 Gastro-esophageal reflux disease without esophagitis; R04.2 Hemoptysis; R91.8 Other nonspecific abnormal finding of lung field | CPT/HCPCS: 99212 ==

== ENCOUNTER 2024-06-05 11:39 | Outpatient (REF) | payer MEDICAID, SELFPAY ==
[2024-06-05 13:05] LABS: MANUAL DIFF FLAG NO
[2024-06-05 13:17] LABS: Basophils Absolute Auto 0.1 X10*3/uL (0.0-0.2); Basophils Percent Auto 0.7 % (0-2); Eosinophils Absolute Auto 0.2 X10*3/uL (0.0-0.4); Hematocrit 36.6 % (37.0-47.0); Hemoglobin 11.4 g/dl (12.0-16.0); Imm Gran Abs Auto 0.03 X10*3/uL (0.00-0.03); Imm Gran Pct Auto 0.3 % (0.0-0.4); Lymphocytes Absolute Auto 3.1 X10*3/uL (1.2-4.9); Lymphocytes Percent Auto 35.1 % (20-40); Mean Corpuscular HGB Conc 31.1 g/dl (31.0-35.0); Mean Corpuscular Hemoglobin 27.1 pg (27.0-33.0); Mean Corpuscular Volume 87.1 fL (80.0-98.0); Monocytes Absolute Auto 0.7 X10*3/uL (0.1-1.2); Monocytes Percent Auto 7.6 % (2-11); Neutrophils Absolute Auto 4.8 x10*3/uL (2.0-8.3); Neutrophils Percent Auto 54.3 % (45-73); Platelet Count 140 X10*3/uL (160-400); Red Cell Distribution Width 17.6 % (11.0-16.0); White Blood Count 8.9 X10*3/uL (4.8-10.8)
[2024-06-05 13:41] LABS: Alanine Aminotransferase 40 U/L (0-31); Albumin Level 4.4 g/dL (3.5-5.0); Alkaline Phosphatase 115 U/L (39-117); Anion Gap 15 (12-20); Aspartate Amino Transferase 52 U/L (5-31); Bilirubin Total 1.3 mg/dL (0.0-1.0); Blood Urea Nitrogen 15 mg/dL (9-16); Calcium 10.3 mg/dL (8.4-10.2); Carbon Dioxide 25 mmol/L (22-29); Chloride 104 mmol/L (96-108); Cholesterol 110 mg/dL (<200); Estimated Glomerular Filt Rate > 60; Glucose Random 73 mg/dL (60-115); HDL Cholesterol 37 mg/dL (>40); LDL Cholesterol Calculated 47 mg/dL (<100); Potassium 4.1 mmol/L (3.3-5.1); Sodium 140 mmol/L (135-145); Triglycerides 132 mg/dL (<150)
[2024-06-05 13:50] LABS: TSH reflex Free T4 1.59 uIU/mL (0.32-4.0)
[2024-06-05 13:54] LABS: HBsAGNum1 0.28 S/CO (0.00-0.99); HIV AB/AG Nonreactive (Nonreactive); HIV Num 1 0.17 S/CO (0.00-0.99); Hepatitis B Surface Antigen Negative (Negative); ~HepC Num1 0.26 S/CO (0.00-0.79); ~Hepatitis C Antibody Nonreactive (Nonreactive)
[2024-06-05 13:56] LABS: Syphilis Screen Nonreactive (Nonreactive)
[2024-06-05 13:57] LABS: Creatinine Urine 148.96 mg/dL
[2024-06-07 19:39] LABS: TS Negative Control Passed; TS Panel A 0; TS Panel B 0; TS Positive Control Passed; TSpotTB Negative (Negative)
== END 2024-06-05 11:40 | disposition home or self-care (01) ==
LOC: HO.HHCL 11:39
PROVIDERS: General Practice; Visit Provider Student in an Organized Health Care Education/Training Program
DX: Z11.1 Encounter for screening for respiratory tuberculosis (principal); E11.65 Type 2 diabetes mellitus with hyperglycemia; Z79.4 Long term (current) use of insulin; R29.6 Repeated falls; D50.9 Iron deficiency anemia, unspecified; E11.69 Type 2 diabetes mellitus with other specified complication; D69.6 Thrombocytopenia, unspecified
CPT/HCPCS: 36415; 80053; 80061; 82043; 82570; 83735; 84443; 85025; 86481; 86780; 86803; 87340; 87389

== ENCOUNTER → 2024-06-10 15:00 | Outpatient (BNV) | payer MEDICAID, SELFPAY | PROVIDERS: PCP General Practice; Visit Provider Radiology Diagnostic Radiology | DX: Z12.31 Encounter for screening mammogram for malignant neoplasm of breast (principal) | CPT/HCPCS: 77063; 77067 ==

== ENCOUNTER 2024-06-10 15:05 | Outpatient (REF) | payer MEDICAID, SELFPAY ==
[2024-06-10 15:50] LABS: Ammonia 47 umol/L (13-55)
[2024-06-18 13:49] LABS: Vitamin B1 133 nmol/L (8-30)
== END 2024-06-10 15:06 | disposition home or self-care (01) ==
LOC: HO.MAMMO 15:05
PROVIDERS: Student in an Organized Health Care Education/Training Program; PCP General Practice; Visit Provider General Practice
DX: R74.01 Elevation of levels of liver transaminase levels (principal); Z12.31 Encounter for screening mammogram for malignant neoplasm of breast
CPT/HCPCS: 36415; 77063; 77067; 82140; 84425

== ENCOUNTER 2024-06-15 15:24 | Emergency (ER) | payer MEDICAID, SELFPAY ==
--- NOTE | ~2024-06-15 | CT_ITS ---
EXAMINATION: CT HEAD WITHOUT CONTRAST CT ANGIOGRAM HEAD CT ANGIOGRAM NECK CLINICAL INFORMATION: Headache COMPARISON: MR brain 10/19/2020 TECHNIQUE: Initial noncontrast construction technology instructor imaging of the head and neck was performed. Noncontrast head CT was also performed. Test bolus sequences followed by intravenous administration 70 mL of Omnipaque 350. Helical imaging was performed in the axial plane from the aortic arch to the skull vertex. Delayed postcontrast imaging of the head was also performed. The data was processed at the nanotechnology engineering technologist's workstation for generation of MIP sequences. Angled MIPs and volume rendered reformatted images were also generated at an offline 3D workstation. Stenoses are assessed in accordance with Correa et al. Quantification of Carotid Stenosis on CT Angiography. AJR 2006. 27(1):13-19. [address] CT examination was performed using dose optimization techniques as appropriate, variously including the following: *Automated exposure control *Adjustment of mA and/or kV according to patient size (this includes techniques or standardized protocols for targeted exams where dose is matched to indication/reason for exam; i.e. extremities or head) *Use of iterative reconstruction technique DLP: 2214 mGy-cm FINDINGS: CT HEAD: There is no evidence of acute intracranial hemorrhage. No mass-effect or ventricular shift is noted. No acute, territorial loss of rudd-white differentiation. Stent in the region of the right transverse sinus. Aneurysm clip/coil in the region of the right clinoid internal carotid artery. The ventricles and sulci are appropriate in size and configuration for the patient's stated age. Periventricular and subcortical white matter hypodensity is nonspecific but likely represents chronic microvascular ischemic change. No abnormal intracranial enhancement is visualized. No depressed calvarial fracture. The mastoid air cells and the visualized paranasal sinuses are well-aerated. Bilateral intraocular lens replacement. CTA HEAD: Anterior circulation: Right internal carotid artery: No hemodynamically significant stenosis. Right middle cerebral artery: No hemodynamically significant stenosis. Right anterior cerebral artery: No hemodynamically significant stenosis. Left internal carotid artery: No hemodynamically significant stenosis. Left middle cerebral artery: No hemodynamically significant stenosis. Left anterior cerebral artery: No hemodynamically significant stenosis. Posterior circulation: Right vertebral artery: Hypoplastic. Patent. Markedly diminutive V4 segment after the right PICA origin. Left vertebral artery: Dominant. Patent. Basilar artery: No hemodynamically significant stenosis. Right posterior cerebral artery: origin. Patent. Left posterior cerebral artery: No hemodynamically significant stenosis. Aneurysm clip/coil in the region of the supraclinoid internal carotid artery. No definite residual/recurrent aneurysm is seen within the constraint streak artifact. Patent stent in the right transverse sinus extending to the right transverse sinus and sigmoid sinus junction. 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 Refluxed venous contrast in the dorsal paraspinal soft tissues is indeterminate. CTA NECK: Aortic arch: Normal anatomy. Right common carotid artery: No hemodynamically significant stenosis. Right proximal internal carotid artery: No hemodynamically significant stenosis. Right mid/distal internal carotid artery: No hemodynamically significant stenosis. Left common carotid artery: No hemodynamically significant stenosis. Left proximal internal carotid artery: No hemodynamically significant stenosis. Left mid/distal internal carotid artery: No hemodynamically significant stenosis. Right vertebral artery: Hypoplastic. Portions of the V1, V2, V3 segments are obscured by refluxed venous contrast. Preserved flow extending intracranially. Left vertebral artery: Dominant. Patent. CT NECK: No soft tissue abnormality in the neck. The visualized lung apices and upper mediastinum are within normal limits. CT/CT angio head neck IMPRESSION: CT HEAD: No acute intracranial hemorrhage or territorial loss of rudd-white differentiation. CTA NECK: Portions of the vertebral arteries are obscured by refluxed dense venous contrast. Otherwise, no flow-limiting stenosis in the cervical carotid and vertebral arteries. CTA HEAD: No proximal vessel occlusion or high-grade stenosis. Patent stent in the right transverse sinus extending to the right transverse/sigmoid sinus junction. Refluxed venous contrast with the posterior neck may be related to stent placement or underlying arteriovenous fistula in the appropriate clinical setting. Correlation with prior imaging is recommended if available. 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 No definite residual/recurrent aneurysm within the constraint of associated streak artifact.
[2024-06-15 16:06] VITALS: BP 106/54; PULSE 82; RESP 16; TEMP 35.9; O2SAT 93; BMI 34.2
--- NOTE | 2024-06-15 16:15 | ED_ITS ---
HPI - General Adult General Chief complaint: Head Injury Stated complaint: recent surgery, fall, hit head Time Seen by Provider: 06/15/24 18:28 Related Data Home Medications ?Medication ?Instructions ?Recorded ?Confirmed Vitamin D (with calcium) 1,000 units PO DAILY 08/30/20 03/21/23 carvedilol 3.125 mg tablet 3.125 mg PO DAILY 08/30/20 03/21/23 clonazepam 0.5 mg tablet 0.5 mg PO BID 08/30/20 03/21/23 clonazepam 1 mg tablet 1 mg PO BEDTIME 08/30/20 03/21/23 glipizide 10 mg PO DAILY 08/30/20 03/21/23 isosorbide mononitrate 60 mg PO DAILY 08/30/20 03/21/23 levothyroxine 50 mcg tablet 50 mcg PO DAILY 08/30/20 03/21/23 pregabalin 150 mg capsule 150 mg PO BID 08/30/20 03/21/23 rosuvastatin 20 mg PO DAILY 08/30/20 03/21/23 aspirin 81 mg tablet,delayed 81 mg PO DAILY 09/26/20 03/21/23 release (Adult Low Dose Aspirin) glycerin (adult) 1 supp MO DAILY PRN 06/06/21 06/06/21 albuterol sulfate 90 mcg/actuation 2 inh inhalation Q4-6H PRN Spasms 06/27/21 03/21/23 breath activated powder inhaler amlodipine 5 mg tablet 5 mg PO DAILY 06/27/21 03/21/23 escitalopram oxalate 20 mg tablet 20 mg PO DAILY 06/27/21 03/21/23 fluticasone 500 mcg-salmeterol 50 1 inh inhalation BID 06/27/21 03/21/23 mcg/dose blistr powdr for inhalation (Advair Diskus) furosemide 20 mg tablet 20 mg PO QAM 06/27/21 03/21/23 insulin glargine 100 unit/mL 60 unit subcut DAILY 06/27/21 03/21/23 subcutaneous solution (Lantus U-100 Insulin) insulin regular human 100 unit/mL 15 unit subcut TID 06/27/21 03/21/23 (3 mL) subcutaneous pen (Novolin R FlexPen) dulaglutide 1.5 mg/0.5 mL 1.5 mg subcut QWEEK 09/03/22 03/21/23 subcutaneous pen injector (Trulicity) nebulizers 02/18/23 metformin 500 mg tablet 1,000 mg PO BID 02/27/23 03/21/23 Previous Rx's ?Medication ?Instructions ?Recorded lidocaine 5 % topical ointment 1 applic topical BID PRN pain #30 09/26/20 grams pantoprazole 40 mg tablet,delayed 40 mg PO BID #60 tabs 05/24/21 release albuterol sulfate 2.5 mg/3 mL 2.5 mg (3 mL) inhalation Q6H PRN 09/03/22 (0.083 %) solution for nebulization shortness of breath or wheezing 30 days #180 mL clotrimazole 1 % vaginal cream 1 appful vaginal BEDTIME 7 days 02/28/23 (Clotrimazole-7) #45 grams dextromethorphan-guaifenesin 5 10 ml PO Q6H PRN cough #355 mL 03/22/23 mg-100 mg/5 mL oral liquid (Robitussin Cough-Chest Congestion DM) sulfamethoxazole 800 1 tab PO BID 21 days #42 tabs 03/25/23 mg-trimethoprim 160 mg tablet (Bactrim DS) budesonide-formoterol HFA 160 2 puff PO BID #10.2 grams 06/03/23 mcg-4.5 mcg/actuation aerosol inhaler (Symbicort) azithromycin 250 mg tablet 250 mg PO 3XW 28 days #12 tabs 04/21/24 Allergies Allergy/AdvReac Type Severity Reaction Status Date / Time latex [LATEX] Allergy Intermediate ITCH/RASH Verified 06/15/24 16:12 Penicillins Allergy Intermediate RASH Verified 06/15/24 16:12 magnesium Allergy Palpitation Verified 06/15/24 16:12 s milk Allergy stomach Verified 06/15/24 16:12 pain, red rash eggs Allergy stomach Uncoded 04/21/24 15:29 pain PMFSH Past Medical History Medical History Pulmonary nodules Asthma-COPD overlap syndrome Tracheomalacia Nocturnal hypoxia History of nephrolithiasis Tremors of nervous system Dyspnea PTSD (post-traumatic stress disorder) Delayed gastric emptying Chronic idiopathic constipation Post-op pain Acute hemorrhoid Increased BMI Anxiety History of uterine cancer Arthritis Back pain History of gastroenteritis Hypothyroid Diabetes GERD (gastroesophageal reflux disease) Depression Migraine Asthma History of tachycardia Tachycardia Coronary artery disease Hypertension Surgical History Hx of colonoscopy History of endoscopy History of section History of cardiac catheterization History of hysterectomy Family History Family History Brother Stomach cancer Esophageal cancer Colon cancer Maternal Aunt History of breast cancer Paternal Aunt History of breast cancer Other Cancer Diabetes Heart problem Kidney problem Liver problem Thyroid condition Social History Social History Household Members: Children Household Members Other:: lives with son Alcohol intake: never Patient Tobacco Use Status: Never used Tobacco Advance Directives: No Advance Directives Information Provided: No Do you have a plan to hurt others: No Plan Current occupational status: disabled Physical Exam ED Vital Signs: Vital Signs - 24 hr 06/15/24 16:06 06/15/24 19:45 Temperature 96.6 F L 97.9 F Pulse Rate 82 68 Respiratory Rate 16 18 Blood Pressure 106/54 L 119/60 Pulse Oximetry 93 94 Oxygen Delivery Method Room Air Room Air BMI result Body Mass Index 34.2 Course Course Course Narrative: RME: Done by NIKI Kent. 59 yold female presents to the ED for headache since falling and hitting head. patient states had anuerysm repair surgery on may 19. Patient negative for neuro deficits. Case discussed with charge nurse at [facility] for patient to be brought to the main ED as soon as possible. Most likely patient will need repeat CTA to check aneurysm sure no leakage. Medications Administered Discontinued Medications Generic Name Dose Route Start Last Admin Trade Name Freq PRN Reason Stop Dose Admin Diphenhydramine HCl 25 mg 06/15/24 18:32 06/15/24 19:00 Diphenhydramine Hcl 50 Mg/Ml Vial IVPUSH 06/15/24 18:33 25 mg ONCE ONE Administration Sodium Chloride 500 mls @ 999 mls/hr 06/15/24 18:45 06/15/24 18:46 Ns IV 06/15/24 19:15 999 mls/hr .Q31M RANJITH Administration Iohexol 100 ml 06/15/24 19:53 06/15/24 19:53 Iohexol 350 Mg/Ml 100 Ml Infus..Btl IV 06/15/24 19:54 70 ml ONCE ONE Administration Metoclopramide HCl 10 mg 06/15/24 18:32 06/15/24 19:00 Metoclopramide Hcl 10 Mg/2 Ml Vial IVPUSH 06/15/24 18:33 10 mg ONCE ONE Administration Medical Decision Making Lab Data 06/15/24 16:43 06/15/24 16:43 Labs: Lab Results 06/15/24 Range/Units 16:43 WBC 8.1 (4.8-10.8) X10*3/uL RBC 4.16 L (4.20-5.50) X10*6/uL Hgb 11.5 L (12.0-16.0) g/dl Hct 36.0 L (37.0-47.0) % MCV 86.5 (80.0-98.0) fL MCH 27.6 (27.0-33.0) pg MCHC 31.9 (31.0-35.0) g/dl RDW 17.1 H (11.0-16.0) % Plt Count 105 L (160-400) X10*3/uL MPV 9.8 (9.4-12.3) fL Immature Gran % (Auto) 0.2 (0.0-0.4) % Neut % (Auto) 56.5 (45-73) % Lymph % (Auto) 32.4 (20-40) % Ralls % (Auto) 6.8 (2-11) % Eos % (Auto) 3.2 (0-4) % Baso % (Auto) 0.9 (0-2) % Lymph # (Auto) 2.6 (1.2-4.9) X10*3/uL Ralls # (Auto) 0.6 (0.1-1.2) X10*3/uL Eos # (Auto) 0.3 (0.0-0.4) X10*3/uL Baso # (Auto) 0.1 (0.0-0.2) X10*3/uL Abs Immat Gran (auto) 0.02 (0.00-0.03) X10*3/uL Absolute Neuts (auto) 4.6 (2.0-8.3) x10*3/uL Absolute Nucleated RBC 0.000 (0.0-0.012) X10*3/uL Nucleated RBC % (auto) 0.0 (0.0-0.2) /100WBC PT 12.2 (11.1-13.3) SEC INR 1.0 (0.9-1.1) APTT 28.6 (26.0-36.8) SEC Sodium 140 (135-145) mmol/L Potassium 4.2 (3.3-5.1) mmol/L Chloride 105 (96-108) mmol/L Carbon Dioxide 26 (22-29) mmol/L Anion Gap 13 (12-20) BUN 17 H (9-16) mg/dL Creatinine 0.84 (0.5-1.4) mg/dL Estim Creat Clear Calc 75.7 Estimated GFR > 60 Random Glucose 99 (60-115) mg/dL Calcium 10.6 H (8.4-10.2) mg/dL Total Bilirubin 1.3 H (0.0-1.0) mg/dL AST 52 H (5-31) U/L ALT 45 H (0-31) U/L Alkaline Phosphatase 130 H (39-117) U/L Total Protein 7.7 (6.5-8.0) g/dL Albumin 4.3 (3.5-5.0) g/dL Discharge Plan Discharge Clinical Impression: Head injury Patient Disposition: Home, Self-Care Instructions: Head Injury (ED) Additional Instructions: Please follow-up with your interventional neuroradiologist at [facility] Prescriptions: No Action pantoprazole 40 mg tablet,delayed release (DR/EC) 40 mg PO BID Qty: 60 0RF clotrimazole [Clotrimazole-7] 1 % cream 1 appful vaginal BEDTIME 7 Days Qty: 45 0RF Robitussin Cough-Chest Jan DM 5-100 mg/5 mL liquid 10 ml PO Q6H PRN (Reason: cough) Qty: 355 0RF sulfamethoxazole-trimethoprim [Bactrim DS] 800-160 mg tablet 1 tab PO BID 21 Days Qty: 42 0RF budesonide-formoterol [Symbicort] 160-4.5 mcg/actuation HFA aerosol inhaler 2 puff PO BID Qty: 10.2 11RF clonazepam 0.5 mg Tablet 0.5 mg PO BID clonazepam 1 mg Tablet 1 mg PO BEDTIME carvedilol 3.125 mg Tablet 3.125 mg PO DAILY Vitamin D (with calcium) 1,000 units PO DAILY glipizide 10 mg PO DAILY isosorbide mononitrate 60 mg PO DAILY levothyroxine 50 mcg Tablet 50 mcg PO DAILY pregabalin 150 mg Capsule 150 mg PO BID rosuvastatin 20 mg PO DAILY aspirin [Adult Low Dose Aspirin] 81 mg tablet,delayed release (DR/EC) 81 mg PO DAILY lidocaine 5 % ointment 1 applic topical BID PRN (Reason: pain) Qty: 30 0RF glycerin (adult) Suppository 1 supp MO DAILY PRN amlodipine 5 mg tablet 5 mg PO DAILY escitalopram oxalate 20 mg tablet 20 mg PO DAILY furosemide 20 mg tablet 20 mg PO QAM Novolin R FlexPen 100 unit/mL (3 mL) insulin pen 15 unit subcut TID Lantus U-100 Insulin 100 unit/mL solution 60 unit subcut DAILY fluticasone propion-salmeterol [Advair Diskus] 500-50 mcg/dose blister with device 1 inh inhalation BID albuterol sulfate 90 mcg/actuation aerosol powdr breath activated 2 inh inhalation Q4-6H PRN (Reason: Spasms) metformin 500 mg tablet 1,000 mg PO BID Trulicity 1.5 mg/0.5 mL pen injector 1.5 mg subcut QWEEK albuterol sulfate 2.5 mg /3 mL (0.083 %) solution for nebulization 2.5 mg inhalation Q6H PRN (Reason: shortness of breath or wheezing) 30 Days Qty: 180 11RF (DME) nebulizers Misc See Rx Instructions .ROUTE Rx Instructions: As directed azithromycin 250 mg tablet 250 mg PO 3XW 28 Days Qty: 12 3RF Rx Instructions: Take 1 tablet on Saturday/Saturday/Saturday Referrals: Kevin Cardenas MD [Physician] - 06/17/24 Print Language: Georgian
[2024-06-15 16:47] LABS: MANUAL DIFF FLAG NO
[2024-06-15 16:50] LABS: Basophils Absolute Auto 0.1 X10*3/uL (0.0-0.2); Basophils Percent Auto 0.9 % (0-2); Eosinophils Absolute Auto 0.3 X10*3/uL (0.0-0.4); Eosinophils Percent Auto 3.2 % (0-4); Hemoglobin 11.5 g/dl (12.0-16.0); Imm Gran Abs Auto 0.02 X10*3/uL (0.00-0.03); Imm Gran Pct Auto 0.2 % (0.0-0.4); Lymphocytes Absolute Auto 2.6 X10*3/uL (1.2-4.9); Lymphocytes Percent Auto 32.4 % (20-40); Mean Corpuscular HGB Conc 31.9 g/dl (31.0-35.0); Mean Corpuscular Hemoglobin 27.6 pg (27.0-33.0); Mean Corpuscular Volume 86.5 fL (80.0-98.0); Mean Platelet Volume 9.8 fL (9.4-12.3); Monocytes Absolute Auto 0.6 X10*3/uL (0.1-1.2); Monocytes Percent Auto 6.8 % (2-11); Neutrophils Absolute Auto 4.6 x10*3/uL (2.0-8.3); Neutrophils Percent Auto 56.5 % (45-73); Platelet Count 105 X10*3/uL (160-400); Red Blood Count 4.16 X10*6/uL (4.20-5.50); Red Cell Distribution Width 17.1 % (11.0-16.0); White Blood Count 8.1 X10*3/uL (4.8-10.8)
[2024-06-15 17:00] LABS: Prothrombin Time 12.2 SEC (11.1-13.3)
[2024-06-15 17:02] LABS: Partial Thromboplastin Time 28.6 SEC (26.0-36.8)
[2024-06-15 17:12] LABS: Alanine Aminotransferase 45 U/L (0-31); Albumin Level 4.3 g/dL (3.5-5.0); Alkaline Phosphatase 130 U/L (39-117); Anion Gap 13 (12-20); Aspartate Amino Transferase 52 U/L (5-31); Bilirubin Total 1.3 mg/dL (0.0-1.0); Blood Urea Nitrogen 17 mg/dL (9-16); Calcium 10.6 mg/dL (8.4-10.2); Carbon Dioxide 26 mmol/L (22-29); Chloride 105 mmol/L (96-108); Creatinine Clr Calc Pharmacy 75.7; Estimated Glomerular Filt Rate > 60; Glucose Random 99 mg/dL (60-115); Potassium 4.2 mmol/L (3.3-5.1); Sodium 140 mmol/L (135-145); Total Protein 7.7 g/dL (6.5-8.0)
--- NOTE | 2024-06-15 18:34 | ED_ITS ---
HPI - Head Injury General Chief complaint: Head Injury Stated complaint: recent surgery, fall, hit head Time Seen by Provider: 06/15/24 18:28 History of Present Illness HPI Narrative: Patient is a 59-year-old female struck in the head by a table after tripping. Patient denies being on any blood thinners. Does have a history of having a brain aneurysm repair on May 19 this year. It was done at [facility]. Patient denies any focal weakness. No nausea no vomiting. The incident happened about a week ago. She has a constant history of dizziness. It is not changed. Has a history of hypertension and is on amlodipine. History of anxiety. History of diabetes. No new focal weakness. Denies any alcohol drugs Related Data Home Medications ?Medication ?Instructions ?Recorded ?Confirmed Vitamin D (with calcium) 1,000 units PO DAILY 08/30/20 03/21/23 carvedilol 3.125 mg tablet 3.125 mg PO DAILY 08/30/20 03/21/23 clonazepam 0.5 mg tablet 0.5 mg PO BID 08/30/20 03/21/23 clonazepam 1 mg tablet 1 mg PO BEDTIME 08/30/20 03/21/23 glipizide 10 mg PO DAILY 08/30/20 03/21/23 isosorbide mononitrate 60 mg PO DAILY 08/30/20 03/21/23 levothyroxine 50 mcg tablet 50 mcg PO DAILY 08/30/20 03/21/23 pregabalin 150 mg capsule 150 mg PO BID 08/30/20 03/21/23 rosuvastatin 20 mg PO DAILY 08/30/20 03/21/23 aspirin 81 mg tablet,delayed 81 mg PO DAILY 09/26/20 03/21/23 release (Adult Low Dose Aspirin) glycerin (adult) 1 supp MO DAILY PRN 06/06/21 06/06/21 albuterol sulfate 90 mcg/actuation 2 inh inhalation Q4-6H PRN Spasms 06/27/21 03/21/23 breath activated powder inhaler amlodipine 5 mg tablet 5 mg PO DAILY 06/27/21 03/21/23 escitalopram oxalate 20 mg tablet 20 mg PO DAILY 06/27/21 03/21/23 fluticasone 500 mcg-salmeterol 50 1 inh inhalation BID 06/27/21 03/21/23 mcg/dose blistr powdr for inhalation (Advair Diskus) furosemide 20 mg tablet 20 mg PO QAM 06/27/21 03/21/23 insulin glargine 100 unit/mL 60 unit subcut DAILY 06/27/21 03/21/23 subcutaneous solution (Lantus U-100 Insulin) insulin regular human 100 unit/mL 15 unit subcut TID 06/27/21 03/21/23 (3 mL) subcutaneous pen (Novolin R FlexPen) dulaglutide 1.5 mg/0.5 mL 1.5 mg subcut QWEEK 09/03/22 03/21/23 subcutaneous pen injector (Trulicity) nebulizers 02/18/23 metformin 500 mg tablet 1,000 mg PO BID 02/27/23 03/21/23 Previous Rx's ?Medication ?Instructions ?Recorded lidocaine 5 % topical ointment 1 applic topical BID PRN pain #30 09/26/20 grams pantoprazole 40 mg tablet,delayed 40 mg PO BID #60 tabs 05/24/21 release albuterol sulfate 2.5 mg/3 mL 2.5 mg (3 mL) inhalation Q6H PRN 09/03/22 (0.083 %) solution for nebulization shortness of breath or wheezing 30 days #180 mL clotrimazole 1 % vaginal cream 1 appful vaginal BEDTIME 7 days 02/28/23 (Clotrimazole-7) #45 grams dextromethorphan-guaifenesin 5 10 ml PO Q6H PRN cough #355 mL 03/22/23 mg-100 mg/5 mL oral liquid (Robitussin Cough-Chest Congestion DM) sulfamethoxazole 800 1 tab PO BID 21 days #42 tabs 03/25/23 mg-trimethoprim 160 mg tablet (Bactrim DS) budesonide-formoterol HFA 160 2 puff PO BID #10.2 grams 06/03/23 mcg-4.5 mcg/actuation aerosol inhaler (Symbicort) azithromycin 250 mg tablet 250 mg PO 3XW 28 days #12 tabs 04/21/24 Allergies Allergy/AdvReac Type Severity Reaction Status Date / Time latex [LATEX] Allergy Intermediate ITCH/RASH Verified 06/15/24 16:12 Penicillins Allergy Intermediate RASH Verified 06/15/24 16:12 magnesium Allergy Palpitation Verified 06/15/24 16:12 s milk Allergy stomach Verified 06/15/24 16:12 pain, red rash eggs Allergy stomach Uncoded 04/21/24 15:29 pain Review of Systems 2 Review of Systems: Positive headache Yes all other systems are reviewed and are negative [facility] Past Medical History Attestation statement: The following information was validated with the patient. Medical History Pulmonary nodules Asthma-COPD overlap syndrome Tracheomalacia Nocturnal hypoxia History of nephrolithiasis Tremors of nervous system Dyspnea PTSD (post-traumatic stress disorder) Delayed gastric emptying Chronic idiopathic constipation Post-op pain Acute hemorrhoid Increased BMI Anxiety History of uterine cancer Arthritis Back pain History of gastroenteritis Hypothyroid Diabetes GERD (gastroesophageal reflux disease) Depression Migraine Asthma History of tachycardia Tachycardia Coronary artery disease Hypertension Surgical History Hx of colonoscopy History of endoscopy History of section History of cardiac catheterization History of hysterectomy Family History Family History Brother Stomach cancer Esophageal cancer Colon cancer Maternal Aunt History of breast cancer Paternal Aunt History of breast cancer Other Cancer Diabetes Heart problem Kidney problem Liver problem Thyroid condition Social History Social History Household Members: Children Household Members Other:: lives with son Alcohol intake: never Patient Tobacco Use Status: Never used Tobacco Advance Directives: No Advance Directives Information Provided: No Do you have a plan to hurt others: No Plan Current occupational status: disabled Physical Exam 2 Vital Signs: Vital Signs: Last Vital Signs Temp 97.9 F 06/15/24 19:45 Pulse 68 06/15/24 19:45 Resp 18 06/15/24 19:45 BP 119/60 06/15/24 19:45 Pulse Ox 94 06/15/24 19:45 O2 Del Method Room Air 06/15/24 19:45 BMI result Body Mass Index 34.2 Appearance: Alert. Oriented X3. No acute distress. Eyes: Pupils equal, round and reactive to light. ENT: Pharynx normal. Neck: Normal inspection. Neck supple. No lymph nodes noted. No crepitus CVS: Normal heart rate and rhythm. Pulses normal. Normal S1 and S2 Respiratory: No respiratory distress. Breath sounds normal. No Wheezing. No rales Abdomen: Soft and nontender. No rigidity. No distention. good BS x4 Skin: Skin warm and dry. Normal skin color. Normal skin turgor. Extremities: No lower extremity edema. Neurovascular intact to all extremities. No Lacerations. No Rash Neuro: Oriented X 3. No motor deficit. No sensory deficit. Moving all extermities. No slurred speech Medications Administered Discontinued Medications Generic Name Dose Route Start Last Admin Trade Name Avery PRN Reason Stop Dose Admin Diphenhydramine HCl 25 mg 06/15/24 18:32 06/15/24 19:00 Diphenhydramine Hcl 50 Mg/Ml Vial IVPUSH 06/15/24 18:33 25 mg ONCE ONE Administration Sodium Chloride 500 mls @ 999 mls/hr 06/15/24 18:45 06/15/24 18:46 Ns IV 06/15/24 19:15 999 mls/hr .Q31M RANJITH Administration Iohexol 100 ml 06/15/24 19:53 06/15/24 19:53 Iohexol 350 Mg/Ml 100 Ml Infus..Btl IV 06/15/24 19:54 70 ml ONCE ONE Administration Metoclopramide HCl 10 mg 06/15/24 18:32 06/15/24 19:00 Metoclopramide Hcl 10 Mg/2 Ml Vial IVPUSH 06/15/24 18:33 10 mg ONCE ONE Administration Medical Decision Making Medical Decision Making MDM Narrative: CT head CTA of the head and neck was done. There is no gross bleeding. There is question reflux noted. The finding was discussed with Dr. Willoughby at [facility] interventional radiology. He is actually the 1 that performed the procedure. I discussed the CTA finding with him. Read the CTA report to him. Retry to download the images to [facility] unfortunately it is not working. He feels comfortable that given the CT head showed no acute bleeding. CTA showed the finding as described in the report. Patient can be discharged home close follow-up on an outpatient basis. Currently patient is in stable condition. Differential Diagnosis Differential Diagnoses: The differential diagnosis associated with the presentation includes Intracranial bleed, aneurysm Admission/Observation Consideration of admission/observation: Escalation of care including admission/observation considered Consult Healthcare Provider Management of the patient was discussed with: Train Control Technician ([facility] neuro radiology's) Lab Data MDM Lab Attestation statement: I reviewed the patient's lab results. 06/15/24 16:43 06/15/24 16:43 Labs: Lab Results 06/15/24 Range/Units 16:43 WBC 8.1 (4.8-10.8) X10*3/uL RBC 4.16 L (4.20-5.50) X10*6/uL Hgb 11.5 L (12.0-16.0) g/dl Hct 36.0 L (37.0-47.0) % MCV 86.5 (80.0-98.0) fL MCH 27.6 (27.0-33.0) pg MCHC 31.9 (31.0-35.0) g/dl RDW 17.1 H (11.0-16.0) % Plt Count 105 L (160-400) X10*3/uL MPV 9.8 (9.4-12.3) fL Immature Gran % (Auto) 0.2 (0.0-0.4) % Neut % (Auto) 56.5 (45-73) % Lymph % (Auto) 32.4 (20-40) % Dawes % (Auto) 6.8 (2-11) % Eos % (Auto) 3.2 (0-4) % Baso % (Auto) 0.9 (0-2) % Lymph # (Auto) 2.6 (1.2-4.9) X10*3/uL Dawes # (Auto) 0.6 (0.1-1.2) X10*3/uL Eos # (Auto) 0.3 (0.0-0.4) X10*3/uL Baso # (Auto) 0.1 (0.0-0.2) X10*3/uL Abs Immat Gran (auto) 0.02 (0.00-0.03) X10*3/uL Absolute Neuts (auto) 4.6 (2.0-8.3) x10*3/uL Absolute Nucleated RBC 0.000 (0.0-0.012) X10*3/uL Nucleated RBC % (auto) 0.0 (0.0-0.2) /100WBC PT 12.2 (11.1-13.3) SEC INR 1.0 (0.9-1.1) APTT 28.6 (26.0-36.8) SEC Sodium 140 (135-145) mmol/L Potassium 4.2 (3.3-5.1) mmol/L Chloride 105 (96-108) mmol/L Carbon Dioxide 26 (22-29) mmol/L Anion Gap 13 (12-20) BUN 17 H (9-16) mg/dL Creatinine 0.84 (0.5-1.4) mg/dL Estim Creat Clear Calc 75.7 Estimated GFR > 60 Random Glucose 99 (60-115) mg/dL Calcium 10.6 H (8.4-10.2) mg/dL Total Bilirubin 1.3 H (0.0-1.0) mg/dL AST 52 H (5-31) U/L ALT 45 H (0-31) U/L Alkaline Phosphatase 130 H (39-117) U/L Total Protein 7.7 (6.5-8.0) g/dL Albumin 4.3 (3.5-5.0) g/dL Independent Interpretation I performed an independent interpretation of an: CT Scan Radiology Impression Discussion of test interpretation with radiology: I have reviewed the radiologist's reading. External Record Review External record reviewed: Inpatient record Chronic Conditions COPD Social Determinants Patient?s care significantly limited by Social Determinants of Health including: Problems related to primary support group Discharge Plan Discharge Clinical Impression: Head injury Patient Disposition: Home, Self-Care Instructions: Head Injury (ED) Additional Instructions: Please follow-up with your interventional neuroradiologist at [facility] Prescriptions: No Action pantoprazole 40 mg tablet,delayed release (DR/EC) 40 mg PO BID Qty: 60 0RF clotrimazole [Clotrimazole-7] 1 % cream 1 appful vaginal BEDTIME 7 Days Qty: 45 0RF Robitussin Cough-Chest Jan DM 5-100 mg/5 mL liquid 10 ml PO Q6H PRN (Reason: cough) Qty: 355 0RF sulfamethoxazole-trimethoprim [Bactrim DS] 800-160 mg tablet 1 tab PO BID 21 Days Qty: 42 0RF budesonide-formoterol [Symbicort] 160-4.5 mcg/actuation HFA aerosol inhaler 2 puff PO BID Qty: 10.2 11RF clonazepam 0.5 mg Tablet 0.5 mg PO BID clonazepam 1 mg Tablet 1 mg PO BEDTIME carvedilol 3.125 mg Tablet 3.125 mg PO DAILY Vitamin D (with calcium) 1,000 units PO DAILY glipizide 10 mg PO DAILY isosorbide mononitrate 60 mg PO DAILY levothyroxine 50 mcg Tablet 50 mcg PO DAILY pregabalin 150 mg Capsule 150 mg PO BID rosuvastatin 20 mg PO DAILY aspirin [Adult Low Dose Aspirin] 81 mg tablet,delayed release (DR/EC) 81 mg PO DAILY lidocaine 5 % ointment 1 applic topical BID PRN (Reason: pain) Qty: 30 0RF glycerin (adult) Suppository 1 supp MO DAILY PRN amlodipine 5 mg tablet 5 mg PO DAILY escitalopram oxalate 20 mg tablet 20 mg PO DAILY furosemide 20 mg tablet 20 mg PO QAM Novolin R FlexPen 100 unit/mL (3 mL) insulin pen 15 unit subcut TID Lantus U-100 Insulin 100 unit/mL solution 60 unit subcut DAILY fluticasone propion-salmeterol [Advair Diskus] 500-50 mcg/dose blister with device 1 inh inhalation BID albuterol sulfate 90 mcg/actuation aerosol powdr breath activated 2 inh inhalation Q4-6H PRN (Reason: Spasms) metformin 500 mg tablet 1,000 mg PO BID Trulicity 1.5 mg/0.5 mL pen injector 1.5 mg subcut QWEEK albuterol sulfate 2.5 mg /3 mL (0.083 %) solution for nebulization 2.5 mg inhalation Q6H PRN (Reason: shortness of breath or wheezing) 30 Days Qty: 180 11RF (DME) nebulizers Misc See Rx Instructions .ROUTE Rx Instructions: As directed azithromycin 250 mg tablet 250 mg PO 3XW 28 Days Qty: 12 3RF Rx Instructions: Take 1 tablet on Saturday/Saturday/Saturday Referrals: Kevin Cardenas MD [Physician] - 06/17/24 Print Language: Estonian
[2024-06-15] MEDS: 0.9 % Sodium Chloride 500 ML 999 ML IV (18:46)
[2024-06-15] MEDS: diphenhydrAMINE HCL 50 MG/ML VIAL 25 MG IVPUSH (19:00)
[2024-06-15] MEDS: Metoclopramide HCl 10 MG/2 ML VIAL IVPUSH (19:00)
[2024-06-15 19:45] VITALS: BP 119/60; PULSE 68; RESP 18; TEMP 36.6; O2SAT 94
--- NOTE | 2024-06-15 19:46 | MHC.EDTECH ---
This tech took over care of patient at 1900,hourly rounds and vitals completed,son at bedside call faria in reach
[2024-06-15] MEDS: iohexoL 350 MG/ML 100 ML INFUS..BTL IV (19:53)
[2024-06-15 21:50] VITALS: BP 119/60; PULSE 68; RESP 18; TEMP 36.6; O2SAT 94
== END 2024-06-15 21:50 | disposition home or self-care (01) ==
PROVIDERS: Physician Assistant; Emergency Provider Emergency Medicine Emergency Medical Services; PCP General Practice
DX: S09.90XA Unspecified injury of head, initial encounter (principal); R51.9 Headache, unspecified; F41.9 Anxiety disorder, unspecified; W01.10XA Fall on same level from slipping, tripping and stumbling with subsequent striking against unspecified object, initial encounter; Y93.01 Activity, walking, marching and hiking; Y92.89 Other specified places as the place of occurrence of the external cause; Y99.8 Other external cause status; Z79.899 Other long term (current) drug therapy
CPT/HCPCS: 36415; 70496; 70498; 80053; 85025; 85610; 85730; 96374; 96375; 99284; J1200; J2765; Q9967

== ENCOUNTER 2024-06-22 15:02 | Outpatient (REF) | payer MEDICAID, SELFPAY ==
--- NOTE | ~2024-06-22 | CT_ITS ---
EXAMINATION: CT CHEST WITHOUT CONTRAST CLINICAL INFORMATION: Pulmonary nodularity COMPARISON: Previous dated 03/26/2023 TECHNIQUE: Multidetector volumetric CT imaging of the chest was done. Axial MIP volume rendering provided. Sagittal and coronal reformatted images were obtained. This CT examination was performed using dose optimization techniques as appropriate, variously including the following: *Automated exposure control *Adjustment of mA and/or kV according to patient size (this includes techniques or standardized protocols for targeted exams where dose is matched to indication/reason for exam; i.e. extremities or head) *Use of iterative reconstruction technique DLP: 163 mGy-cm FINDINGS: The thoracic inlet and is felt to be comparable to previous. The axillary regions are felt to be comparable. Mild Coronary calcifications noted. Partially visualized upper abdominal structures demonstrates a low-attenuation lesion on image 48 in the liver. Measures approximately 9 mm. Otherwise comparable to previous exam. Some mild adenopathy in the periaortic region. Centrally there is no bulky adenopathy This is a noncontrast study but the hilar regions are felt to be comparable to previous. Imaging in the lung fofana. Right lung; 4 mm nodule on image 274 appears stable. Multiple areas of nodularity seen previously are shown to improve consistent with resolving benign process. Other small nodules are stable Left lung; Motion limits evaluation. Stable appearing 3 mm nodule on image 244. Review of bone windows does not demonstrate suspicious finding. CT/CT chest wo IV con IMPRESSION: Importantly many of the nodules observed on previous exam are resolved or resolving. Most consistent with benign process. Others are stable to include a 4 mm nodule in the right lung. Follow-up per Fleischner criteria given below. This exam is also demonstrating a low density lesion in the right lobe liver of uncertain etiology. Recommend ultrasound to further evaluate According to the 2017 Fleischner Society criteria for incidentally found pulmonary nodules of this size and appearance, <6 mm (solid): in a low risk patient (minimal or no smoking or other known risk factors for malignancy), no follow-up is needed, while in a high risk patient (history of smoking or other known risk factors), consider optional CT follow-up at 12 months. <6 mm (single subsolid nodule): no routine follow-up is needed. <6 mm (multiple subsolid nodules): a CT at 3-6 months is recommended, and if stable consider optional CT at 2 and 4 years. 6-8 mm (single solid nodule): in a low risk patient (minimal or no smoking or other known risk factors for malignancy), initial follow-up CT at 6-12 months and consider optional CT at 18-24 months, while in a high risk patient (history of smoking or other known risk factors), initial follow-up CT at 6-[address] at 18-24 months. 6-8 mm (multiple solid nodules): in a low risk patient (minimal or no smoking or other known risk factors for malignancy), initial follow-up CT at 3-6 months and consider optional CT at 18-24 months, while in a high risk patient (history of smoking or other known risk factors), initial follow-up CT at 3-[address] at 18-24 months. >=6 mm (single groundglass nodule): initial follow-up CT at 6-12 months is recommended to confirm persistence, then CT every 2 years until 5 years have passed. >=6 mm (single partly solid nodule): initial follow-up CT at 3-6 months is recommended to confirm persistence. If unchanged and solid component remains <6 mm, annual CT should be performed for 5 years. Persistent part solid nodules with solid components >6 mm should be considered highly suspicious with a substantial likelihood of local invasion. Therefore PET/CT, biopsy or resection are recommended in this setting. >=6 mm (multiple subsolid nodules): initial follow-up CT at 3-6 months is recommended. Subsequent management should be based on the most suspicious nodule(s). >8 mm (single solid nodule): consider followup CT in 3 months, PET/CT and/or tissue sampling. >8 mm (multiple solid nodules): in a low risk patient (minimal or no smoking or other known risk factors for malignancy), initial follow-up CT at 3-6 months and consider optional CT at 18-24 months, while in a high risk patient (history of smoking or other known risk factors), initial follow-up CT at 3-[address] at 18-24 months. If the patient has known malignancy: follow up according to oncology protocol. Electronically signed by: Pedro De Leon MD 07/16/2024 01:10 PM EDT
== END 2024-06-22 15:03 | disposition home or self-care (01) ==
LOC: HO.CT 15:02
PROVIDERS: Visit Provider Hospitalist
DX: R91.8 Other nonspecific abnormal finding of lung field (principal)
CPT/HCPCS: 71250

== ENCOUNTER 2024-07-06 13:59 | Outpatient (AMB) | payer MEDICAID, SELFPAY ==
[2024-07-06 14:13] VITALS: PULSE 81; O2SAT 95; BMI 34.2
--- NOTE | 2024-07-06 14:13 | A.OFFVIS_ITS ---
Vital Signs 07/06/24 14:13 Height 5 ft 3 in Weight 192 lb 14.472 oz BMI 34.2 Pulse 81 Pulse Source Pulse Oximeter Pulse Oximetry (%) 95 Oxygen Delivery Method Room Air Intake Visit Reasons: Hemoptysis/CT Follow Up [employer] Required: No Allergies latex [LATEX] Allergy (Intermediate, Verified 07/06/24 14:15) ITCH/RASH Penicillins Allergy (Intermediate, Verified 07/06/24 14:15) RASH magnesium Allergy (Verified 07/06/24 14:15) Palpitations milk Allergy (Verified 07/06/24 14:15) stomach pain, red rash eggs Allergy (Uncoded 07/06/24 14:15) stomach pain HPI Comments Details: The patient is a 59-year-old woman with a known history of diabetes and gastroparesis and history of asthma. She has been on Advair 500 for many years. She does have a rescue inhaler that she uses on a daily basis. She has been developing worsening shortness of breath with activity. Moderate severity. Does get better with rest. She also has a cough that is sometimes gags her. Pulmonary evaluation standpoint she did undergo pulmonary function studies back about a month ago demonstrating some small airways disease but otherwise no obstructive nor restrictive ventilatory defects. In addition to that she had a full cardiac workup with an echocardiogram and also a cardiac nuclear stress test. Those were okay per report. In the meantime she has been struggling with her gastroparesis and reflux disease. The followed closely by GI. Indeed she may have a component of micro aspirations as she describes regurgitation while she is sleeping the sometimes comes on her nose. In addition to that she is on lisinopril for her blood pressure and also for likely renal protection. While I was evaluating the patient appears that she has a tremor. She has been on Reglan. She does take a small dose of Reglan but with the tremor will be crucial to take her off it in case she does develop irreversible tremors. Therefore, we talked about other promotility agents that she can use the po tentially can help her lungs as well. She is willing to try the azithromycin. However she does use SSRI so we have to check an EKG to make sure that her QT is stable. 10/02/2021 the patient is here for a pulmonary follow-up visit. Since we last spoke she is doing a little better. She is tolerating the Symbicort well. Her breathing has improved. She still has coughing episodes. [id number] severity. And has to do with her reflux disease. We had to switch her from the Reglan to azithromycin for promotility due to her tremors. She continues to have some tremors but hopefully they will subside. She needs to get an EKG to assess her QT hopefully she can do that in the coming weeks. in the meantime she continues with the reflux diet. Again I emphasized that she needs to sleep elevated. However she cannot sleep supine. I did recommend she get risers for the head of the bed so she can sleep on her side and still maintain the head of bed elevated. the patient did have a chest x-ray and also blood work which we reviewed. 09/03/2022 the patient is here for a pulmonary follow-up visit. The patient still has multiple complaints. She has been coughing more. She states that she was coughing up some blood recently. however, none in the last few days. Denies any fevers or chills. Hard to know for sure if he coughs up the bladder if he vomited. She states that it was mixed in with some tissue or food. The patient does have significant gastroparesis. She has responded well to the azithromycin 3 times a week as a promotility agent. Initially I did recommend she stop it and then she became concerned because the medication has been helping. Patient understands that it can affect her QT conduction and therefore she needs to have an EKG she is going to continue the medicine. We talked about the other promotility agents but, she would tolerate regular due to her significant tremors. The patient has been sleeping on the sofa because she cannot sleep in her bed. She has significant snoring. The patient does wake up tired even after a full night's sleep. Her Som[place] score is elevated 13/24. The patient needs to undergo home sleep study at this time. She continues her respiratory therapy with good effect. The patient will benefit from a nebulizer machine in order to better administered the respiratory medications and provide bronchopulmonary hygiene to clear mucus production. prior to leaving today from the hospital to undergo a chest x-ray to make sure there is no and developing at this time if she does have an abnormal chest x-ray I will call her in order to request a CT scan of the chest. 11/16/2022 the patient is here for pulmonary follow-up visit. The patient still having some difficulty with headaches in addition to difficulty sleeping. The patient did have elevated daytime drowsiness with an elevated Som[place] score. Although her sleep study did not demonstrate significant sleep apnea. The patient does have underlying obstructive airway disease. A possibly the patient has significant nocturnal hypoxia. I will go ahead and perform an overnight oximetry at this time. If the patient qualifies and will start her on oxygen nighttime. She does continue to use respiratory therapy with good effect. Denies any recent exacerbations. Denies any further hemoptysis. 02/18/2023 the patient is here for a pulmonary follow-up visit. She still complaining off her cough and also hemoptysis. Is typically that be mucus is blood tinged. Usually the blood is mixed in with sputum. [id number] severity. Sometimes she gags when their own mucus and she needs to make CT clear remove the mucus out of her throat with her fingers. She does have issues with her swallow. The patient sometimes cannot protect her swallow. She did have a modified barium swallow back in 2020 that demonstrated some anomalies but no obvious penetration into her larynx. In view of the recurrent hemoptysis the patient did have a chest x-ray without any acute disease. Will go ahead and request a CT scan to further address the issue. In regards her issues with her secretions we did talk about a bronchoscopy once we have the CT scan in order to further address her airway issues gets in deep cultures to make sure she does not have a smoldering infection and make sure she is not does not have an endobronchial lesion that is causing the intermittent bleeding. Will have her follow-up after the CT scan a bronchoscopy at this time. She is using the oxygen at nighttime with good effect. She is planning a trip to [place]. I did recommend she call the [employer] to talked about options about using the oxygen when she arrives to her destination. 04/04/2023 The patient is here for a pulmonary follow up visit. The patient underwent a bronchoscopy. + evidence of tracheomalecia, moderate to severe. Her cultures were also positive for MRSA. The patient was started on Bactrim. Her cough is better. Has been complaining or sore throat she does have thrush right now. The patient does have daytime drowsiness. Som[place] score is elevated, the 11/03. The patient does use oxygen at nighttime for nocturnal hypoxia. Therefore will request an in-lab sleep study to address the question sleep apnea in to starting CPAP therapy. I do believe the positive airway pressure therapy will also help with her tracheomalacia. The patient needs better mucus clearance specially with severe tracheomalacia. Will provide with an Acapella valve to help with mucus clearance and provide good pulmonary hygiene. 07/26/2023 the patient is here for a pulmonary follow-up visit. Since we last spoke the patient did have a in-lab sleep study. We did review the results. The patient had a very limited study as she had a hard time sleeping. She did desaturate requiring the oxygen. Although her AHI was only 3. The patient did not qualify for CPAP. I do believe that this was a very poor study from her and that we will have to help with her sleep hygiene and then consider repeating the study. The patient has significant tracheobronchomalacia and also has significant daytime drowsiness. Somerville still elevated 09/03. I do believe she will benefit from CPAP. Therefore, will work on her sleep and then consider repeating the sleep study the next time she arise. Patient also is using oxygen but it does fall off and sometimes causes significant dryness. She also been to try a oxygen mask. I will request 1 from the [employer]. She continues use her respiratory therapy. The patient has some chest fullness at this time. Respiratory exam is relatively normal. However, she does have significant tracheomalacia and also has his history of Staph colonization. Therefore she will continue with chest physical therapy. If the patient develops worsening chest congestion she will call in will consider giving her additional therapies. 04/21/2024 the patient is here for a pulmonary follow-up visit. She had multiple complaints. The patient did have issues with epistaxis primarily from the right nostril. She has been concerned because she has had twice and it bothers her because she is concerned that she is going to start breathing and choke. The patient also has been concerned about her tracheomalacia feeling like her trachea is going to close up and she will be able to breathe in have a bad outcome. The patient has also been choking up with secretions. Hard to cough. Moderate severity. Will go ahead and start her on azithromycin to try to help her with chronic bronchitis and mucus secretions specially with the tracheobronchomalacia. She will try [place] for lubricating her nose with the hopes that that would reduce some of the epistaxis. She will continue to use the oxygen at nighttime as is been affecting beneficial. In the meantime the patient did have a CT scan of the chest back in 03/30/2023 demonstrating numerous pulmonary nodules measuring from 2-4 mm in size. The patient should get another CAT scan at this time to address those findings. She will follow-up with me after her CT scan. If the patient has any worsening issues prior to the visit she will call for an earlier assessment. 07/06/2024 the patient is here for hospital follow-up visit. The patient recently was evaluated at [facility] after having flu-like symptoms. The patient had a CT of the brain demonstrating a 7 mm cerebral aneurysm. Therefore she did have an evaluation from Neurosurgery and she did undergo endovascular coiling. The patient tolerated procedure well although she did become confused and delusional during the hospitalization. The patient has been using the oxygen at nighttime. She still has daytime drowsiness and also has headaches. Appears that she does have a degree of sleep apnea. Will go ahead and request an in-lab sleep study at this time. Specially with altered mental status. Respiratory mitchell patient seems to be doing okay. CT scan the patient did have a CT scan in June has not been officially read although I did review it with her. Also compared to her previous CT scan that she had a [facility] and also had [place] back last year. It appears that her nodular densities have decreased in size which is reassuring some of the nodules on cleared and other nodules appear to be stable. I do not see any new or concerning nodules. Therefore, the patient has been reassured although we still have to wait for the final read of the CT scan from Radiology. Will plan to repeat the CT scan in a year from now. She continues use her respiratory therapy with good effect. Will plan to follow-up after her in-lab sleep study. [facility] Medical History Pulmonary nodules Asthma-COPD overlap syndrome Tracheomalacia Nocturnal hypoxia History of nephrolithiasis Tremors of nervous system Dyspnea PTSD (post-traumatic stress disorder) Delayed gastric emptying Chronic idiopathic constipation Post-op pain Acute hemorrhoid Increased BMI Anxiety History of uterine cancer Arthritis Back pain History of gastroenteritis Hypothyroid Diabetes GERD (gastroesophageal reflux disease) Depression Migraine Asthma History of tachycardia Tachycardia Coronary artery disease Hypertension Surgical History Hx of colonoscopy History of endoscopy History of section History of cardiac catheterization History of hysterectomy Family History Brother Stomach cancer Esophageal cancer Colon cancer Maternal Aunt History of breast cancer Paternal Aunt History of breast cancer Other Cancer Diabetes Heart problem Kidney problem Liver problem Thyroid condition Social History Household Members: Children Household Members Other:: lives with son Alcohol intake: never Patient Tobacco Use Status: Never used Tobacco Current occupational status: disabled Review of Systems Const Reports daytime sleepiness, Reports difficulty sleeping, Denies night sweats and Reports snoring ENT Denies change in voice, Reports dysphagia, Denies lip swelling, Denies mouth pain, Reports nasal congestion, Reports nasal discharge and Denies tongue swelling Card Denies chest pain and Reports dyspnea on exertion Resp Denies change in phlegm color, Denies chest congestion, Reports cough, Denies hemoptysis, Denies excessive phlegm production, Reports dyspnea on exertion and Reports snoring GI Denies abdominal pain, Reports dysphagia, Reports early satiety, Reports dyspepsia and Reports heartburn Musc Denies no additional complaints and Reports abnormal gait Neuro Denies Neuro-related abnormal movements, Reports abnormal gait and Reports par esthesias Psych Denies no additional complaints Omar/Lymph Denies easy bleeding and Denies lymphadenopathy Aller/Immun Denies lip swelling and Denies tongue swelling Physical Exam Vital Signs: Last Vital Signs Pulse 81 07/06/24 14:13 Pulse Ox 95 07/06/24 14:13 Oxygen Delivery Method Room Air 07/06/24 14:13 BMI result Body Mass Index 34.2 Const General: alert HEENT General nose exam: Abnormal external nose present and Nasal discharge present Eyes Pupils: Equal, round and reactive pupils present Neck Neck: Yes normal visual inspection, Yes full ROM and Yes no lymphadenopathy Chest Chest palpation & inspection: normal inspection of the chest Resp Auscultation: diminished lung sounds Cardio Rate: regular rate Rhythm: regular rhythm Heart sounds: S1 normal heart sound present and S2 normal heart sound present GI Palpation (GI): Soft to palpation and nontender Auscultation: normal bowel sounds General: Yes no CVA tenderness Back/Spine/Pelvis Back: no CVA tenderness Skin General skin exam: rashes and/or lesions noted Neuro Cranial nerves: Yes Equal, round and reactive pupils present Assessment & Plan Assessment & Plan (1) JENNYFER (obstructive sleep apnea): Code(s): G47.33 - Obstructive sleep apnea (adult) (pediatric) Category: Medical (2) Dyspnea: Code(s): R06.00 - Dyspnea, unspecified Category: Medical Qualifiers: Dyspnea type: dyspnea on exertion Qualified Code(s): R06.09 - Other forms of dyspnea (3) GERD (gastroesophageal reflux disease): Code(s): K21.9 - Gastro-esophageal reflux disease without esophagitis Category: Medical Qualifiers: Esophagitis presence: without esophagitis Qualified Code(s): K21.9 - Gastro-esophageal reflux disease without esophagitis (4) Tracheomalacia: Code(s): J39.8 - Other specified diseases of upper respiratory tract Category: Medical (5) Nocturnal hypoxia: Code(s): G47.34 - Idiopathic sleep related nonobstructive alveolar hypoventilation Category: Medical (6) Pulmonary nodules: Code(s): R91.8 - Other nonspecific abnormal finding of lung field Category: Medical Plan continue oxygen at night, requesting oxygen mask requesting in lab PSG water base lubricant CPT with acapella valve and nebulizer repeat CT chest in 06/2025 F/U 3-4 months Orders: Orders RT PSG in-lab sleep study Today G47.33 - Obstructive sleep apnea (adult) (pediatric) Coding Level of Care Code Est Pt Level 4 (98155) Complex EM visit Add On G2211 Diagnoses JENNYFER (obstructive sleep apnea) G47.33 Dyspnea on exertion R06.09 Dyspnea type: dyspnea on exertion Gastroesophageal reflux disease without esophagitis K21.9 Esophagitis presence: without esophagitis Tracheomalacia J39.8 Nocturnal hypoxia G47.34 Pulmonary nodules R91.8 Time Spent (min) 18
== END 2024-07-06 14:50 | disposition home or self-care (01) ==
PROVIDERS: PCP General Practice; Visit Provider Hospitalist
DX: G47.33 Obstructive sleep apnea (adult) (pediatric) (principal); R06.09 Other forms of dyspnea; K21.9 Gastro-esophageal reflux disease without esophagitis; J39.8 Other specified diseases of upper respiratory tract; G47.34 Idiopathic sleep related nonobstructive alveolar hypoventilation; R91.8 Other nonspecific abnormal finding of lung field
CPT/HCPCS: 99214

== ENCOUNTER → 2024-07-06 13:59 | Outpatient (BNVA) | payer MEDICAID, SELFPAY | PROVIDERS: PCP General Practice; Visit Provider Hospitalist | DX: R06.09 Other forms of dyspnea (principal); G47.33 Obstructive sleep apnea (adult) (pediatric); J39.8 Other specified diseases of upper respiratory tract; G47.34 Idiopathic sleep related nonobstructive alveolar hypoventilation; R91.8 Other nonspecific abnormal finding of lung field; K21.9 Gastro-esophageal reflux disease without esophagitis | CPT/HCPCS: 99212 ==

== ENCOUNTER → 2024-08-03 19:30 | Outpatient (REF) | payer MEDICAID, SELFPAY | LOC: HO.SL 19:30 | PROVIDERS: PCP General Practice; Visit Provider Hospitalist | DX: G47.33 Obstructive sleep apnea (adult) (pediatric) (principal) | CPT/HCPCS: 95810 ==

== ENCOUNTER → 2024-08-03 21:52 | Outpatient (BNV) | payer MEDICAID, SELFPAY | PROVIDERS: PCP General Practice; Visit Provider Internal Medicine | DX: G47.33 Obstructive sleep apnea (adult) (pediatric) (principal) | CPT/HCPCS: 95810 ==

== ENCOUNTER 2024-10-01 14:07 | Outpatient (AMB) | payer MEDICAID, SELFPAY ==
[2024-10-01 14:09] VITALS: BP 110/70; PULSE 59; O2SAT 96; BMI 30.8
--- NOTE | 2024-10-01 14:09 | A.OFFVIS_ITS ---
Vital Signs 10/01/24 14:09 Height 5 ft 3 in Weight 174 lb 2.643 oz BMI 30.8 BP 110/70 Blood Pressure Location Rt brachial Position Sitting Pulse 59 Pulse Source Pulse Oximeter Pulse Oximetry (%) 96 Oxygen Delivery Method Room Air Intake Visit Reasons: Hemoptysis/CT Follow Up Allergies latex [LATEX] Allergy (Intermediate, Verified 10/01/24 14:12) ITCH/RASH Penicillins Allergy (Intermediate, Verified 10/01/24 14:12) RASH magnesium Allergy (Verified 10/01/24 14:12) Palpitations milk Allergy (Verified 10/01/24 14:12) stomach pain, red rash eggs Allergy (Uncoded 10/01/24 14:12) stomach pain HPI Comments Details: The patient is a 59-year-old woman with a known history of diabetes and gastroparesis and history of asthma. She has been on Advair 500 for many years. She does have a rescue inhaler that she uses on a daily basis. She has been developing worsening shortness of breath with activity. Moderate severity. Does get better with rest. She also has a cough that is sometimes gags her. Pulmonary evaluation standpoint she did undergo pulmonary function studies back about a month ago demonstrating some small airways disease but otherwise no obstructive nor restrictive ventilatory defects. In addition to that she had a full cardiac workup with an echocardiogram and also a cardiac nuclear stress te st. Those were okay per report. In the meantime she has been struggling with her gastroparesis and reflux disease. The followed closely by GI. Indeed she may have a component of micro aspirations as she describes regurgitation while she is sleeping the sometimes comes on her nose. In addition to that she is on lisinopril for her blood pressure and also for likely renal protection. While I was evaluating the patient appears that she has a tremor. She has been on Reglan. She does take a small dose of Reglan but with the tremor will be crucial to take her off it in case she does develop irreversible tremors. Therefore, we talked about other promotility agents that she can use the potentially can help her lungs as well. She is willing to try the azithromycin. However she does use SSRI so we have to check an EKG to make sure that her QT is stable. 10/02/2021 the patient is here for a pulmonary follow-up visit. Since we last spoke she is doing a little better. She is tolerating the Symbicort well. Her breathing has improved. She still has coughing episodes. [id number] severity. And has to do with her reflux disease. We had to switch her from the Reglan to azithromycin for promotility due to her tremors. She continues to have some tremors but hopefully they will subside. She needs to get an EKG to assess her QT hopefully she can do that in the coming weeks. in the meantime she continues with the reflux diet. Again I emphasized that she needs to sleep elevated. However she cannot sleep supine. I did recommend she get risers for the head of the bed so she can sleep on her side and still maintain the head of bed elevated. the patient did have a chest x-ray and also blood work which we reviewed. 09/03/2022 the patient is here for a pulmonary follow-up visit. The patient still has multiple complaints. She has been coughing more. She states that she was coughing up some blood recently. however, none in the last few days. Denies any fevers or chills. Hard to know for sure if he coughs up the bladder if he vomited. She states that it was mixed in with some tissue or food. The patient does have significant gastroparesis. She has responded well to the azithromycin 3 times a week as a promotility agent. Initially I did recommend she stop it and then she became concerned because the medication has been helping. Patient understands that it can affect her QT conduction and therefore she needs to have an EKG she is going to continue the medicine. We talked about the other promotility agents but, she would tolerate regular due to her significant tremors. The patient has been sleeping on the sofa because she cannot sleep in her bed. She has significant snoring. The patient does wake up tired even after a full night's sleep. Her Bourbon score is elevated 13/24. The patient needs to undergo home sleep study at this time. She continues her respiratory therapy with good effect. The patient will benefit from a nebulizer machine in order to better administered the respiratory medications and provide bronchopulmonary hygiene to clear mucus production. prior to leaving today from the hospital to undergo a chest x-ray to make sure there is no and developing at this time if she does have an abnormal chest x-ray I will call her in order to request a CT scan of the chest. 11/16/2022 the patient is here for pulmonary follow-up visit. The patient still having some difficulty with headaches in addition to difficulty sleeping. The patient did have elevated daytime drowsiness with an elevated Bourbon score. Although her sleep study did not demonstrate significant sleep apnea. The patient does have underlying obstructive airway disease. A possibly the patient has significant nocturnal hypoxia. I will go ahead and perform an overnight oximetry at this time. If the patient qualifies and will start her on oxygen nighttime. She does continue to use respiratory therapy with good effect. Denies any recent exacerbations. Denies any further hemoptysis. 02/18/2023 the patient is here for a pulmonary follow-up visit. She still complaining off her cough and also hemoptysis. Is typically that be mucus is blood tinged. Usually the blood is mixed in with sputum. [id number]-[id number] severity. Sometimes she gags when their own mucus and she needs to make CT clear remove the mucus out of her throat with her fingers. She does have issues with her swallow. The patient sometimes cannot protect her swallow. She did have a modified barium swallow back in 2020 that demonstrated some anomalies but no obvious penetration into her larynx. In view of the recurrent hemoptysis the patient did have a chest x-ray without any acute disease. Will go ahead and request a CT scan to further address the issue. In regards her issues with her secretions we did talk about a bronchoscopy once we have the CT scan in order to further address her airway issues gets in deep cultures to make sure she does not have a smoldering infection and make sure she is not does not have an endobronchial lesion that is causing the intermittent bleeding. Will have her follow-up after the CT scan a bronchoscopy at this time. She is using the oxygen at nighttime with good effect. She is planning a trip to [place]. I did recommend she call the [employer] to talked about options about using the oxygen when she arrives to her destination. 04/04/2023 The patient is here for a pulmonary follow up visit. The patient underwent a bronchoscopy. + evidence of tracheomalecia, moderate to severe. Her cultures were also positive for MRSA. The patient was started on Bactrim. Her cough is better. Has been complaining or sore throat she does have thrush right now. The patient does have daytime drowsiness. Bourbon score is e levated, the 11/03. The patient does use oxygen at nighttime for nocturnal hypoxia. Therefore will request an in-lab sleep study to address the question sleep apnea in to starting CPAP therapy. I do believe the positive airway pressure therapy will also help with her tracheomalacia. The patient needs better mucus clearance specially with severe tracheomalacia. Will provide with an Acapella valve to help with mucus clearance and provide good pulmonary hygiene. 07/26/2023 the patient is here for a pulmonary follow-up visit. Since we last spoke the patient did have a in-lab sleep study. We did review the results. The patient had a very limited study as she had a hard time sleeping. She did desaturate requiring the oxygen. Although her AHI was only 3. The patient did not qualify for CPAP. I do believe that this was a very poor study from her and that we will have to help with her sleep hygiene and then consider repeating the study. The patient has significant tracheobronchomalacia and also has significant daytime drowsiness. Bourbon still elevated 09/03. I do believe she will benefit from CPAP. Therefore, will work on her sleep and then consider repeating the sleep study the next time she arise. Patient also is using oxygen but it does fall off and sometimes causes significant dryness. She also been to try a oxygen mask. I will request 1 from the [employer]. She continues use her respiratory therapy. The patient has some chest fullness at this time. Respiratory exam is relatively normal. However, she does have significant tracheomalacia and also has his history of Staph colonization. Therefore she will continue with chest physical therapy. If the patient develops worsening chest congestion she will call in will consider giving her additional therapies. 04/21/2024 the patient is here for a pulmonary follow-up visit. She had multiple complaints. The patient did have issues with epistaxis primarily from the right nostril. She has been concerned because she has had twice and it bothers her because she is concerned that she is going to start breathing and choke. The patient also has been concerned about her tracheomalacia feeling like her trachea is going to close up and she will be able to breathe in have a bad outcome. The patient has also been choking up with secretions. Hard to cough. Moderate severity. Will go ahead and start her on azithromycin to try to help her with chronic bronchitis and mucus secretions specially with the tracheobronchomalacia. She will try [place] for lubricating her nose with the hopes that that would reduce some of the epistaxis. She will continue to use the oxygen at nighttime as is been affecting beneficial. In the meantime the patient did have a CT scan of the chest back in 03/30/2023 demonstrating numerous pulmonary nodules measuring from 2-4 mm in size. The patient should get another CAT scan at this time to address those findings. She will follow-up with me after her CT scan. If the patient has any worsening issues prior to the visit she will call for an earlier assessment. 07/06/2024 the patient is here for hospital follow-up visit. The patient recently was evaluated at [facility] after having flu-like symptoms. The patient had a CT of the brain demonstrating a 7 mm cerebral aneurysm. Therefore she did have an evaluation from Neurosurgery and she did undergo endovascular coiling. The patient tolerated procedure well although she did become confused and delusional during the hospitalization. The patient has been using the oxygen at nighttime. She still has daytime drowsiness and also has headaches. Appears that she does have a degree of sleep apnea. Will go ahead and request an in-lab sleep study at this time. Specially with altered mental status. Respiratory mitchell patient seems to be doing okay. CT scan the patient did have a CT scan in June has not been officially read although I did review it with her. Also compared to her previous CT scan that she had a [facility] and also had [place] back last year. It appears that her nodular densities have decreased in size which is reassuring some of the nodules on cleared and other nodules appear to be stable. I do not see any new or concerning nodules. Therefore, the patient has been reassured although we still have to wait for the final read of the CT scan from Radiology. Will plan to repeat the CT scan in a year from now. She continues use her respiratory therapy with good effect. Will plan to follow-up after her in-lab sleep study. 10/01/2024 the patient is here for a pulmonary follow-up visit. Overall the patient is doing well. She is using the oxygen at nighttime. The oxygen therapy has been affecting beneficial. Although it is noisy. She does have daytime drowsiness with an Bourbon score that is elevated 10/04. The patient did undergo an in-lab sleep study. We did reviewed together. The patient appears to have underlying sleep apnea and will benefit from CPAP therapy. It appears that although the study was limited she does not need oxygen with her CPAP. Therefore, will go ahead and order APAP therapy that she can start this time. Once she gets situated with we can cancel the oxygen order. She also continues with respiratory therapy with good effect. Will have her return in 4 months to assess her response to CPAP. [facility] Medical History Pulmonary nodules Asthma-COPD overlap syndrome Tracheomalacia Nocturnal hypoxia History of nephrolithiasis Tremors of nervous system Dyspnea PTSD (post-traumatic stress disorder) Delayed gastric emptying Chronic idiopathic constipation Post-op pain Acute hemorrhoid Increased BMI Anxiety History of uterine cancer Arthritis Back pain History of gastroenteritis Hypothyroid Diabetes GERD (gastroesophageal reflux disease) Depression Migraine Asthma History of tachycardia Tachycardia Coronary artery disease Hypertension Surgical History Hx of colonoscopy History of endoscopy History of section History of cardiac catheterization History of hysterectomy Family History Brother Stomach cancer Esophageal cancer Colon cancer Maternal Aunt History of breast cancer Paternal Aunt History of breast cancer Other Cancer Diabetes Heart problem Kidney problem Liver problem Thyroid condition Social History Household Members: Children Household Members Other:: lives with son Alcohol intake: never Patient Tobacco Use Status: Never used Tobacco Current occupational status: disabled Review of Systems Const Reports daytime sleepiness, Reports difficulty sleeping, Denies night sweats and Reports snoring ENT Denies change in voice, Reports dysphagia, Denies lip swelling, Denies mouth pain, Reports nasal congestion, Reports nasal discharge and Denies tongue swelling Card Denies chest pain and Reports dyspnea on exertion Resp Denies change in phlegm color, Denies chest congestion, Reports cough, Denies hemoptysis, Denies excessive phlegm production, Reports dyspnea on exertion and Reports snoring GI Denies abdominal pain, Reports dysphagia, Reports early satiety, Reports dyspepsia and Reports heartburn Musc Denies no additional complaints and Reports abnormal gait Neuro Denies Neuro-related abnormal movements, Reports abnormal gait and Reports paresthesias Psych Denies no additional complaints Omar/Lymph Denies easy bleeding and Denies lymphadenopathy Aller/Immun Denies lip swelling and Denies tongue swelling Physical Exam Vital Signs: Last Vital Signs Pulse 59 10/01/24 14:09 BP 110/70 10/01/24 14:09 Pulse Ox 96 10/01/24 14:09 Oxygen Delivery Method Room Air 10/01/24 14:09 BMI result Body Mass Index 30.8 Const General: alert HEENT General nose exam: Abnormal external nose present and Nasal discharge present Eyes Pupils: Equal, round and reactive pupils present Neck Neck: Yes normal visual inspection, Yes full ROM and Yes no lymphadenopathy Chest Chest palpation & inspection: normal inspection of the chest Resp Auscultation: diminished lung sounds Cardio Rate: regular rate Rhythm: regular rhythm Heart sounds: S1 normal heart sound present and S2 normal heart sound present GI Palpation (GI): Soft to palpation and nontender Auscultation: normal bowel sounds General: Yes no CVA tenderness Back/Spine/Pelvis Back: no CVA tenderness Skin General skin exam: rashes and/or lesions noted Neuro Cranial nerves: Yes Equal, round and reactive pupils present Assessment & Plan Assessment & Plan (1) JENNYFER (obstructive sleep apnea): Code(s): G47.33 - Obstructive sleep apnea (adult) (pediatric) Category: Medical (2) Dyspnea: Code(s): R06.00 - Dyspnea, unspecified Category: Medical Qualifiers: Dyspnea type: dyspnea on exertion Qualified Code(s): R06.09 - Other forms of dyspnea (3) GERD (gastroesophageal reflux disease): Code(s): K21.9 - Gastro-esophageal reflux disease without esophagitis Category: Medical Qualifiers: Esophagitis presence: without esophagitis Qualified Code(s): K21.9 - Gastro-esophageal reflux disease without esophagitis (4) Tracheomalacia: Code(s): J39.8 - Other specified diseases of upper respiratory tract Category: Medical (5) Nocturnal hypoxia: Code(s): G47.34 - Idiopathic sleep related nonobstructive alveolar hypoventilation Category: Medical (6) Pulmonary nodules: Code(s): R91.8 - Other nonspecific abnormal finding of lung field Category: Medical Plan hold oxygen at night, requesting oxygen mask start APAP CPT with acapella valve and nebulizer repeat CT chest in 06/2025 flexeril as needed for neck pain F/U 3-4 months Medications: New cyclobenzaprine 5 mg PO TID PRN 20 tabs 0RF muscle spasm 10 days Coding Level of Care Code Est Pt Level 4 (72936) Diagnoses JENNYFER (obstructive sleep apnea) G47.33 Dyspnea on exertion R06.09 Dyspnea type: dyspnea on exertion Gastroesophageal reflux disease without esophagitis K21.9 Esophagitis presence: without esophagitis Tracheomalacia J39.8 Nocturnal hypoxia G47.34 Pulmonary nodules R91.8 Time Spent (min) 16
== END 2024-10-01 14:34 | disposition home or self-care (01) ==
PROVIDERS: PCP General Practice; Visit Provider Hospitalist
DX: G47.33 Obstructive sleep apnea (adult) (pediatric) (principal); R06.09 Other forms of dyspnea; K21.9 Gastro-esophageal reflux disease without esophagitis; J39.8 Other specified diseases of upper respiratory tract; G47.34 Idiopathic sleep related nonobstructive alveolar hypoventilation; R91.8 Other nonspecific abnormal finding of lung field
CPT/HCPCS: 99214

== ENCOUNTER → 2024-10-01 14:07 | Outpatient (BNVA) | payer MEDICAID, SELFPAY | PROVIDERS: PCP General Practice; Visit Provider Hospitalist | DX: K21.9 Gastro-esophageal reflux disease without esophagitis (principal); G47.33 Obstructive sleep apnea (adult) (pediatric); G47.34 Idiopathic sleep related nonobstructive alveolar hypoventilation; R06.09 Other forms of dyspnea; J39.8 Other specified diseases of upper respiratory tract; R91.8 Other nonspecific abnormal finding of lung field | CPT/HCPCS: 99212 ==

== ENCOUNTER 2024-11-27 12:38 | Outpatient (REF) | payer MEDICAID, SELFPAY ==
[2024-11-27 13:23] LABS: MANUAL DIFF FLAG NO
[2024-11-27 13:48] LABS: Basophils Absolute Auto 0.1 X10*3/uL (0.0-0.2); Basophils Percent Auto 0.7 % (0-2); Eosinophils Absolute Auto 0.2 X10*3/uL (0.0-0.4); Eosinophils Percent Auto 2.1 % (0-4); Hematocrit 36.1 % (37.0-47.0); Hemoglobin 11.9 g/dl (12.0-16.0); Imm Gran Abs Auto 0.03 X10*3/uL (0.00-0.03); Imm Gran Pct Auto 0.4 % (0.0-0.4); Lymphocytes Absolute Auto 2.6 X10*3/uL (1.2-4.9); Lymphocytes Percent Auto 30.5 % (20-40); Mean Corpuscular Hemoglobin 29.2 pg (27.0-33.0); Mean Corpuscular Volume 88.7 fL (80.0-98.0); Mean Platelet Volume 10.8 fL (9.4-12.3); Monocytes Absolute Auto 0.5 X10*3/uL (0.1-1.2); Monocytes Percent Auto 6.2 % (2-11); Neutrophils Absolute Auto 5.1 x10*3/uL (2.0-8.3); Neutrophils Percent Auto 60.1 % (45-73); Platelet Count 88 X10*3/uL (160-400); Red Blood Count 4.07 X10*6/uL (4.20-5.50); Red Cell Distribution Width 14.1 % (11.0-16.0); White Blood Count 8.6 X10*3/uL (4.8-10.8)
[2024-12-04 01:07] LABS: FIB-ALT 19 U/L (6-29); FIB-Alpha-2-Macroglobulin 165 mg/dL (106-279); FIB-Apolipoprotein A1 122 mg/dL (101-198); FIB-GGT 55 U/L (3-70); FIB-Haptoglobin 201 mg/dL (43-212); FIB-Total Bilirubin 0.9 mg/dL (0.2-1.2); Liver Fibrosis Score 0.29; Liver Fibrosis Stage F1; Nec Inflam Act Grade A0; Nec Inflam Act Score 0.07; Reference ID 5300609
== END 2024-11-27 12:39 | disposition home or self-care (01) ==
LOC: HO.US 12:38
PROVIDERS: PCP General Practice; Visit Provider General Practice
DX: K76.0 Fatty (change of) liver, not elsewhere classified (principal); D50.9 Iron deficiency anemia, unspecified
CPT/HCPCS: 36415; 81596; 85025

== ENCOUNTER 2025-01-20 10:17 | Outpatient (REF) | payer MEDICAID, SELFPAY ==
--- NOTE | ~2025-01-20 | US_ITS ---
EXAMINATION: US ABDOMEN COMPLETE WITH LIVER ELASTOGRAPHY HISTORY: FATTY LIVER TECHNIQUE: Real-time grayscale ultrasound imaging of the abdomen was performed and images were reviewed. COMPARISON: Comparison is made with the prior examination dated 11/02/2019. FINDINGS: Liver: The right lobe of the liver measures 15.8 cm in size. The left lobe of the liver measures 15.4 cm in size. The liver demonstrates coarsened and increased echotexture, consistent with steatosis. The liver contour appears nodular suggestive of cirrhosis. There is a 5 x 5 x 6 mm echogenic focus in the right lobe which may represent a hemangioma. No intrahepatic biliary ductal dilatation is identified. There is normal hepatopedal flow in the portal vein. Ultrasound elastography of the liver was performed with 10 separate measurements of the liver parenchyma with the patient in the supine position. Measurements were obtained approximately 2 cm below Jacquelin's capsule and perpendicular to the capsule. Images are of satisfactory quality. The median shear wave velocity is 2.08 m/s. The interquartile range/median (IQR/median) is 0.19. Gallbladder and biliary tree: The gallbladder is unremarkable, without evidence of calculi, wall thickening, or pericholecystic fluid. There is no sonographic Jorge sign. The common bile duct is normal in caliber measuring 2 mm. Kidneys: The right kidney measures 11.7 cm in length. The left kidney measures 12.3 cm in length. The kidneys are unremarkable, without evidence of masses, hydronephrosis, or calculi. Pancreas: The pancreatic head, neck, and body are unremarkable. The pancreatic tail is obscured by bowel gas. Spleen: The spleen is normal in size and contour, measuring 12.7 cm in length. Abdominal aorta and inferior vena cava: The visualized portions of the abdominal aorta and inferior vena cava are normal in caliber. US/US abdomen comp w elastography IMPRESSION: Hepatomegaly and hepatic steatosis. Nodular liver contour, suggestive of cirrhosis. Possible 6 mm hemangioma. The median shear wave velocity in the liver is 2.08 m/s, corresponding to a median liver stiffness of 13.00 kPa. The IQR/median value is 0.19. This is indicative of a poor quality data set, and the estimated liver stiffness may be unreliable. Findings are indicative of a high elastography value suggestive of compensated advanced chronic liver disease. REFERENCE: Society of Radiologists in Ultrasound Liver Stiffness Thresholds (2020): LIVER STIFFNESS THRESHOLDS: *Shear wave velocity less than 1.3 m/s (Liver Stiffness equal or less than 5 kPa): High probability of being normal. *Shear wave velocity less than 1.7 m/s (Liver Stiffness less than 9 kPa): In the absence of other known clinical signs, rules out compensated advanced chronic liver disease. *Shear wave velocity between 1.7-2.1 m/s (Liver Stiffness 9-13 kPa): Suggestive of compensated advanced chronic liver disease but need further test for confirmation. *Shear wave velocity between 2.1-2.4 m/s (Liver Stiffness 13-17 kPa): Rules in compensated advanced chronic liver disease. *Shear wave velocity greater than 2.4 m/s (Liver Stiffness over 17 kPa): Suggestive of clinically significant portal hypertension. QUALITY OF DATA SET: *IQR/Median value equal or less than 0.15 implies a quality data set. *IQR/Median value over 0.15 implies a poor quality data set. SIGNIFICANT CHANGE FROM PRIOR EXAM: Significant change if liver stiffness measurement is 10% or greater from prior exam. OTHER CONSIDERATIONS: The stage of liver fibrosis may be overestimated in the setting of acute hepatitis, liver inflammation, elevated liver function tests, hepatic vascular congestion, obstructive cholestasis, non-fasting state, and infiltrative diseases such as amyloidosis and lymphoma. In some patients with NAFLD, the liver stiffness thresholds for compensated advanced chronic liver disease may be lower. In causes other than viral hepatitis and NAFLD, liver stiffness thresholds are not well established. Electronically signed by: Shekhar Cosme MD 01/20/2025 12:27 PM EDT
--- OUTSIDE RECORDS SUMMARY | 2025-01-20 11:47 | XMS_ITS | Encounter Summary ---
Author Organization [employer] Address [address] [place] [address] Care Team Providers Care Technology Integration Specialist Name Role Phone Shanice Jones MD Primary Care Provider [phone] Encounter Details Date Type Department Care Team (Latest Contact Info) Description 01/11/2025 Travel Social History Tobacco Use Types Packs/Day Years Used Date Smoking Tobacco: Never Passive Smoke Exposure: Never Smokeless Tobacco: Never Alcohol Use Standard Drinks/Week Comments Never 0 (1 standard drink = 0.6 oz pur e alcohol) Housing Stability Answer Date Recorded What is your housing situation today? I have reggienicolas taylor 09/01/[address] you li ve. Do you have problems with any of the following? None of the above 09/01/2023 Food Insecurity Answer Date Recorded Within the past 12 months, y ou worried that your food would run out before you got money to buy more: Never True 09/01/2023 Within the past 12 months,th e food you bought just didn't last and you didn't have enough money to get more: Never True Transportation Answer Date Recorded In the past 12 months, has l ack of transportation kept you from medical appts, meetings, work or from getting things needed for daily living? No 01/10/2024 Utilities Answer Date Recorded In the past 12 months, has t he electric, gas, oil or water company threatened to shut off services in your home? No 09/01/2023 Depression Answer Date Recorded Patient Health Questionnaire-2 Score 0 06/17/2023 Internet Access Answer Date Recorded Internet Access Q1 Yes 07/13/2024 Internet Access Q2 Not on file 07/13/2024 Comments Unknown Sex and Gender Information Value Date Recorded Sex Assigned at Female 09/10/2022 10:21 AM EDT Legal Sex Female 10:21 AM EDT Gender Identity Female 09/10/2022 10:21 AM EDT Sexual Orientation Choose not to disclose 2021 10:21 AM EDT documented as of this encounter Plan of Treatment Upcoming Encounters Date Type Department Care Team (Late st Contact Info) Description 01/27/2025 2:00 PM EDT Procedure Visit [facility] [address] [place] [id number] Shanice Jones MD [address] [place] [id number] 03/26/2025 3:30 PM EDT Office Visit [facility] [address] [place] [phone] Shanice Jones MD [address] [place] [phone] documented as of this encounter Visit Diagnoses Not on filedocumented in this encounter Care Teams Technology Integration Specialist Relationship Specialty Start Date End Date Shanice Jones MD [address] [place] [address] [phone] PCP - General Family Medicine 12/22/20 Cary Alonzo Leach Cell OperatorFuse Cup Expander 08/26/24 documented as of this encounter
--- OUTSIDE RECORDS SUMMARY | 2025-01-20 11:47 | XMS_ITS | Encounter Summary ---
Author Organization [employer] Address [address] [facility] 7 [place] [address] Care Team Providers Care Video Software Engineer Name Role Phone Shanice Jones MD Primary Care Provider [phone] Reason for Visit * Reason Comments Hospital Follow-up Encounter Details Date Type Department Care Team ([facility] st Contact Info) Description 01/11/2025 2:45 PM EST Office Visit [facility] [address] [place], [place] [phone] Shanice Jones MD [address] [place], [place] [phone] Hospital discharge follow-up (Primary Dx); Type 2 diabetes mellitus with other specified complication, with long-term current use of insulin (CMS/HCC); Portal hypertensive gastropathy (CMS/HCC) (CMS/HCC); Malignant neoplasm of endometrium (CMS/HCC); Cerebral aneurysm; Severe episode of recurrent major depressive disorder, with psychotic features (CMS/HCC); Mild persistent asthma without complication Social History Tobacco Use Types Packs/Day Years Used Date Smoking Tobacco: Never Passive Smoke Exposure: Never Smokeless Tobacco: Never Tobacco Cessation:Counseling Given: Not Answered Alcohol Use Standard Drinks/Week Comments Never 0 (1 standard drink = 0.6 oz pur e alcohol) Housing Stability Answer Date Recorded What is your housing situation today? I have reggie taylor 09/01/[address] you [...] AM EDT documented as of this encounter Last Filed Vital Signs Vital Sign Reading Time Taken Comments Blood Pressure 127/79 01/11/2025 2:52 PM EST Pulse 82 01/11/2025 2:52 PM EST Temperature 36.7 ??C (98 ??F) 01/11/2025 2:52 PM EST Respiratory Rate 16 01/11/2025 2:52 PM EST Oxygen Saturation 96% 01/11/2025 2:52 PM EST Inhaled Oxygen Concentration - - Weight 75.3 kg (166 lb) 01/11/2025 2:52 PM EST Height 160 cm (5' 3 ) 01/11/2025 2:52 PM EST Body Mass Index 29.41 01/11/2025 2:52 PM EST documented in this encounter Progress Notes * Shanice Jones MD - 01/11/2025 2:45 PM EST SUBJECTIVE: Lindsey Lofton is a 59 y.o. year old female who presents for hospital discharge followup . Denies recent illness, ER visit, or hospitalization. Acute Concerns: Patient reports the following in relation to her recent hospitalization: She is still taking Klonopin 1mg BID, prescribed by Dr. Salo Perales. She should discuss with him about decreasing or tapering her Klonopin, or maybe reducing the dose. She discontinued Carvedilol and Lisinopril. Would like to consider trigger point injections for her neck pain. Still has has pain where she struck her head, four esvin removed today in clinic. She is taking Tylenol for pain. 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, going to switch from her son to other telegraphic typewriter repairer Needs PT-1 extended to her other providers Background Pharmacist Thelma Machuca, RobertoD and pharmacy technician per diem Jaylyn Diaz contacted patient to discuss upcoming hospital discharge visit for head injury : Future Appointments Date Time Provider Department Center 01/11/2025 2:45 PM Shanice Jones MD MEDICINE [facility] Hospital Course and Medication Reconciliation [facility] (12/17/2024-12/21/2024) Patient admitted as Category 1 trauma after sustaining unwitnessed possible mechanical fall at home, hitting their head and losing consciousness. Cleared by trauma surgery team. A 2 cm laceration waslocated on back of patients head on the left side of head behind the ear and was sutured in the emergency department. CT and physical exam showed no additional acute findings, patient was still complaining of persistent posterior head/neck pain and left shoulder pain. Patient was also hypotensive on scene 90/40 mmhg, improved with fluids. SBP remained in 1 teens, lisinopril, prazosin and carvedilol discontinued. Clonazepam discontinued as a scheduled medication and made as needed. Lantus dose adjusted given low sugars. Patient discharged home Medication changes that occurred during hospitalization include: Added Acetaminophen 325mg - 3 tablets (975 mg) every 8 hours for 7 days Docusate sodium 100 mg - 2 caps (200 mg) 2 times daily for 30 days - not p/u Lactulose 10 gm/15 mL syrup- 30 mL PO 3 times a day for 30 days - not p/u Meclizine 12.5 mg - 2 tablets (25 mg) 3 times a day for 10 days Changed Clonazepam 1 mg three times a day changed to 0.5 mg twice daily as needed for anxiety Taper instructions: twice a day x 7 days, then to be switched to daily for 7 days then switch to once a day for 7 days, then go to PRN dosing. Insulin Lantus 50 units before bedtime - changed to 25 units daily at bedtime Insulin Aspart 15 units TID with meals - changed to See Instructions 150 - 199 2 units 200 - 249 4 units, 250 - 299 6 units, 300 - 349 8 units, 350 - 399 10 units 3 times a day before meals. Discontinued: Carvedilol, Lisinopril, Prazosin Preferred Pharmacy: [facility] - [address] [id number] [facility]/pharm[facility] #[id number] - [address] TO [address] [place] [id number] [facility]: Yes Date: currently filling Patient Reported History Spoke with patients Son (HIPAA), confirmed discontinuation of carvedilol, prazosin and lisinopril Confirmed they removed discontinued medications from [facility] Denied home monitoring of BP as patient does not have a BP monitor Reported patient was taking clonazepam 1 mg twice a day. Acknowledged plan to make clonazepam as needed however reported patient was getting bad anxiety attacks and feels a standing dose is better to prevent that Confirmed decreased dose of Lantus and sliding scale of aspart Reported aspart was 10 units three times a day with sliding scale if sugar was lower Reports BG readings between 70 to 80 however not keeping a log. [facility] requested son keep a log for the next week and bring to follow up. Son stated they would try Reported follow up with endocrinology in February Reported patient was taking pantoprazole at home and still had a few left despite fill history Confirmed and agreeable to HDF appointment as listed above Pharmacist Notes Discrepancies: Listed to be continued on discharge however not active on EHR or recent fill: Azelastine, omeprazole. Denied use of omeprazole Medication discontinuations communicated to [facility] pharmacist Interim Updates (not addressed today): She had EGD at [facility] 10/07/24 and results returned 10/19/24: FINAL PATHOLOGIC DIAGNOSIS: A. DUODENUM, BIOPSY: Ectopic gastric mucosa with inflammation. Adjacent intact villous architecture with increased intraepithelial lymphocytes, nonspecific. TTG normal 07/23/2024. B. STOMACH, BIOPSY: Erosive gastritis with reactive foveolar hyperplasia. C. GASTROESOPHAGEAL JUNCTION AT 36CM, BIOPSY: Squamocolumnar junction with reflux esophagitis and reactive changes. Negative for intestinal metaplasia and dysplasia. D. SIGMOID COLON, POLYP: Hyperplastic polyp. Note: Immunohistochemical stains for H. pylori are performed on the gastric biopsies and DO NOT DEMONSTRATE organisms with the morphologic characteristics of Helicobacter. Prior to EGD, had had abd US due to elevated liver enzymes (AST 52, ALT 45, Alk phos 130) which showed 1. Normal gallbladder. 2. No biliary ductal dilatation. 3. The liver is diffusely echogenic. This is a nonspecific finding indicating diffuse hepatocellular disease and limiting the sensitivity of this exam. In the correct clinical scenario, this commonlyrepresents fatty liver. Within the limitations of this study, there is no sonographic evidence for focal hepatic lesion. She is most concerned about the erosive gastritis. She is already on Pantoprazole 40mg daily and Carafate 1gm twice daily. As far as fatty liver and PUD, we discussed no alcohol, no smoking, no NSAIDs. Continue statin, continue weight loss (weight decreased from 194 one year ago to 174 today) Continue Trulicity 4.5mg weekly for DM2 mgmt and weight loss, A1c 6.0 today Needs elastogram, this was ordered MELD score 9, based on 06/2024 labs Fib4 score 4.3 (advanced fibrosis likely) Hep B/C, HIV1 negative 05/2024 Patient Active Problem List Diagnosis Angina pectoris (CMS/HCC) Constipation Dermatochalasis of both upper eyelids Essential hypertension Gastroesophageal reflux disease with esophagitis without hemorrhage Gastroparesis Hyperlipidemia LDL goal <100 Mild persistent asthma Class 1 obesity Posttraumatic stress disorder Severe recurrent major depression (CMS/HCC) Tremor Type 2 diabetes mellitus with hyperglycemia, with long-term current use of insulin (CMS/HCC) Vision changes Vitamin D deficiency Malignant neoplasm of endometrium (CMS/HCC) Ptosis of both eyelids Urinary incontinence Left ankle sprain Exercise counseling Chronic migraine without aura without status migrainosus, not intractable Pre-operative exam Sensorineural hearing loss (SNHL) of both ears Paronychia of great toe of left foot Ingrowing nail, left great toe Insomnia due to other mental disorder Dependence on nocturnal oxygen therapy Spinal arthritis Cerebral aneurysm Transaminitis Anemia Tracheobronchomalacia Pulmonary nodule Nocturnal hypoxia Elevated liver enzymes Portal hypertensive gastropathy (CMS/HCC) (CMS/HCC) Fatty liver Type 2 diabetes mellitus with other specified complication, with long-term current use of insulin (CMS/HCC) Hospital discharge follow-up History reviewed. No pertinent surgical history. No family history on file. Social History Social History Narrative Lives in apartment in [place], [place] with her son Nick Review of Systems OBJECTIVE: Vitals: 01/11/25 1452 BP: 127/79 BP Location: Right arm Patient Position: Sitting BP Cuff Size: Adult Pulse: 82 Resp: 16 Temp: 98 ??F (36.7 ??C) TempSrc: Temporal SpO2: 96% Weight: 166 lb (75.3 kg) Height: 5' 3 (1.6 m) Physical Exam ASSESSMENT/PLAN Problem List Items Addressed This Visit Mild persistent asthma Severe recurrent major depression (CMS/HCC) Malignant neoplasm of endometrium (CMS/HCC) Cerebral aneurysm Portal hypertensive gastropathy (CMS/HCC) (CMS/HCC) Type 2 diabetes mellitus with other specified complication, with long-term current use of insulin (CMS/HCC) Hospital discharge follow-up - Primary Current Assessment & Plan Anxiety: She is still taking Klonopin 1mg BID, prescribed by Dr. Salo Perales. She should discuss withhim about decreasing or tapering her Klonopin, or maybe reducing the dose. HTN: She discontinued Carvedilol and Lisinopril. BP is normal today, continue to hold meds Neck pain: Would like to consider trigger point injections for her neck pain. Will book for followup URRUTIA: taking Tylenol for pain. 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 Will extend PT-1 to her other providers Follow Up: 3 months or sooner prn Allergies Allergen Reactions Egg White (Egg Protein) Rash Latex Rash Other reaction(s): Rash Penicillins Rash Other reaction(s): Rash Current Outpatient Medications: acetaminophen (Tylenol) 325 MG tablet, Take 3 tablets by mouth every 8 (eight) hours if needed., Disp: , Rfl: Alcohol Swabs (Alcohol Pads) 70 % pads, Maintenance, 05/02/15 13:57:37, Compound, Disp: , Rfl: Aspirin Low Dose 81 MG EC tablet, Take 81 mg by mouth in the morning., Disp: , Rfl: Bisacodyl EC 5 MG EC tablet, TAKE 4 TABLETS BY MOUTH ONCE DAILY DIRECTED, Disp: , Rfl: cholecalciferol 25 MCG tablet, TAKE 1 TABLET BY MOUTH EVERY MORNING, Disp: 90 tablet, Rfl: 3 clonazePAM (KlonoPIN) 1 MG tablet, Take 1 tablet (1 mg) by mouth if needed in the morning, at noon,and at bedtime for anxiety. (Patient taking differently: Take 1 mg by mouth 2 times daily.), Disp: 90 tablet, Rfl: 0 Diclofenac Sodium 1 % gel, APPLY 2 GRAMS TO AFFECTED AREA(S) OF LOWER BACK TWICE DAILY FOR PAIN, Disp: , Rfl: Easy Touch Pen [place]field 31G X 6 MM mis, USE FOUR TIMES DAILY DIRECTED, Disp: 100 each, Rfl: 11 escitalopram (Lexapro) 20 MG tablet, TAKE 2 TABLETS BY MOUTH ONCE DAILY IN THE MORNING, Disp: , Rfl: Ferrous Sulfate (iron) 325 (65 Fe) MG tablet, TAKE 1 TABLET BY MOUTH EVERY MORNING, Disp: 90 tablet, Rfl: 0 FreeStyle lancets, Maintenance, 05/02/15 13:58:32, Compound, Disp: , Rfl: fremanezumab (Ajovy) 225 MG/1.5ML auto-injector, Inject 675 mg under the skin every 3 (three) months., Disp: , Rfl: glucose blood (FREESTYLE LITE) test strip, every 8 (eight) hours., Disp: , Rfl: insulin aspart (NovoLOG) 100 UNIT/ML pen, Per sliding scale 150 - 199 2 units 200 - 249 4 units, 250 - 299 6 units, 300 - 349 8 units, 350 - 399 10 units three times a day before meals, Disp: , Rfl: isosorbide mononitrate ER (Imdur) 30 MG 24 hr tablet, Take 30 mg by mouth in the morning., Disp: , Rfl: Lantus SoloStar 100 UNIT/ML pen, Inject 25 Units under the skin at bedtime., Disp: , Rfl: levothyroxine (Synthroid, Levoxyl) 50 MCG tablet, TAKE 1 TABLET BY MOUTH EVERY MORNING 30-60 MINUTES BEFORE MEALS OR FOOD, Disp: 90 tablet, Rfl: 3 metFORMIN (Glucophage) 500 MG tablet, TAKE 2 TABLETS BY MOUTH TWICE DAILY IN THE MORNING AND EVENING, Disp: 360 tablet, Rfl: 3 pantoprazole (ProtoNix) 40 MG EC tablet, TAKE 1 TABLET BY MOUTH TWICE DAILY IN THE MORNING AND IN THE EVENING, Disp: 180 tablet, Rfl: 3 Plavix 75 MG tablet, Take 75 mg by mouth., Disp: , Rfl: pregabalin (Lyrica) 200 MG capsule, TAKE 1 CAPSULE BY MOUTH TWICE DAILY IN THE MORNING AND IN THE EVENING, Disp: , Rfl: ProAir RespiClick 108 (90 Base) MCG/ACT aerosol powder , INHALE 2 PUFFS BY MOUTH EVERY 6 HOURS NEEDED FOR SHORTNESS OF BREATH OR FOR WHEEZING, Disp: , Rfl: QUEtiapine (SEROquel) 25 MG tablet, TAKE 1 TABLET BY MOUTH AT BEDTIME NEEDED FOR SLEEP, Disp: 30tablet, Rfl: 1 rosuvastatin (Crestor) 10 MG tablet, Take 1 tablet by mouth Once per day., Disp: , Rfl: senna (Senokot) 8.6 MG tablet, TAKE 1 TABLET BY MOUTH TWICE DAILY IN THE MORNING AND AT BEDTIME NEEDED FOR CONSTIPATION, Disp: 90 tablet, Rfl: 3 sucralfate (Carafate) 1 g tablet, TAKE 1 TABLET BY MOUTH EVERY TWELVE HOURS NEEDED HEARTBURN, Disp: 60 tablet, Rfl: 3 Symbicort 160-4.5 MCG/ACT inhaler, INHALE 2 PUFFS BY MOUTH TWICE DAILY RINSE MOUTH AFTER USING., Disp: , Rfl: thiamine (Vitamin B-1) 50 MG tablet, TAKE 1 TABLET BY MOUTH EVERY MORNING, Disp: 90 tablet, Rfl: 3 triamcinolone (Kenalog) 0.1 % cream, Apply topically if needed in the morning and at bedtime (pain and swelling)., Disp: 30 g, Rfl: 2 Trulicity 4.5 MG/0.5ML solution auto-injector, INJECT ONE PEN (= 4.5MG) SUBCUTANEOUSLY ONCE A WEEK DIRECTED, Disp: , Rfl: zolpidem (Ambien) 10 MG tablet, Take 10 mg by mouth if needed at bedtime., Disp: , Rfl: Jordanian Translation: Patient is bilingual and declines translation services documented in this encounter Miscellaneous Notes * Assessment & Plan Note - Shanice Jones MD - 01/19/2025 12:56 PM EDT Associated Problem(s): Hospital discharge follow-up Anxiety: She is still taking Klonopin 1mg BID, prescribed by Dr. Salo Perales. She should discuss withhim about decreasing or tapering her Klonopin, or maybe reducing the dose. HTN: She discontinued Carvedilol and Lisinopril. BP is normal today, continue to hold meds Neck pain: Would like to consider trigger point injections for her neck pain. Will book for followup URRUTIA: taking Tylenol for pain. 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 Will extend PT-1 to her other providers documented in this encounter Plan of Treatment Upcoming Encounters Date Type Department Care Team (Late st Contact Info) Description 01/27/2025 2:00 PM EDT Procedure Visit [facility] [address] [place] [phone] Shanice Jones MD [address] [place] [phone] 03/26/2025 3:30 PM EDT Office Visit [facility] [address] [place] [phone] Shanice Jones MD [address] [place] [phone] documented as of this encounter Visit Diagnoses Diagnosis Hospital discharge follow-up- Primary Other follow-up examination Type 2 diabetes mellitus with other specified complication, with long-term current use of insulin (CMS/HCC) Portal hypertensive gastropathy (CMS/HCC) (CMS/HCC) Malignant neoplasm of endometrium (CMS/HCC) Malignant neoplasm of corpus uteri, except isthmus Cerebral aneurysm Cerebral aneurysm, nonruptured Severe episode of recurrent major depressive disorder, with psychotic features (CMS/HCC) Mild persistent asthma without complication documented in this encounter Care Teams Video Software Engineer Relationship Specialty Start Date End Date Shanice Jones MD [address] [place] [address] PCP - General Family Medicine 12/22/20 Cary Alonzo Traffic SuperintendentFruit Dryer 08/26/24 documented as of this encounter
--- OUTSIDE RECORDS SUMMARY | 2025-01-20 11:47 | XMS_ITS | Encounter Summary ---
Author Organization [employer] Address [address] [facility] 7t [place] [address] Care Team Providers Care Redeye Gunner Name Role Phone Shanice Jones MD Primary Care Provider [phone] Reason for Visit * Reason Comments Transition Of Care (Tcm) HDF unscheduled . Encounter Details Date Type Department Care Team ([facility] st Contact Info) Description 12/22/2024 Patient Outreach [facility] [address] [place], [place] [phone] Shanice Jones MD [address] [place] [address] Transition Of Care (Tcm) (HDF unscheduled. ) Social History Tobacco Use Types Packs/Day Years [...] AM EDT documented as of this encounter Miscellaneous Notes * Significant Event - Johanne Izaguirre - 12/22/2024 10:34 AM EST 12/22/24 1026 Hospital Discharges and Admission for [facility] Type of Visit Hospital Admission Date of Admission/Visit 12/17/24 Date of Discharge 12/21/24 Facility [facility] Diagnosis Fall, Head injury Disposition Discharged with Home Care Services Follow-Up Actions Follow-Up Needed Provider appointment Follow-Up Outcome Left Voicemail Initial Contact Date 12/22/24 CC Johanne hung call to offer patient with an HDF appointment with provider. No answer at this time. Patient's name and were not confirmed. CC left detailed message educating patient on importance of following up with provider following an inpatient admission. Provided contact information requesting a call back in order to schedule the HDF appointment. Patient educated via voicemail on extended clinic hours on Mondays and Wednesdays, and Walk-In Urgent Care Located in [facility]. Patient provided with after-hours line for [facility], , which offer night time triage service and option to transfer to firmware software verification engineer provider if needed. CC scanned discharge summary into patient's chart. CC will place additional outreach call within 2-5 business days. documented in this encounter Plan of Treatment Upcoming Encounters Date Type Department Care Team (Late st Contact Info) Description 01/27/2025 2:00 PM EDT Procedure Visit [facility] [address] [place] [phone] Shanice Jones MD [address] [place], [place] [phone] 03/26/2025 3:30 PM EDT Office Visit [address] [address] Shanice Jones MD [address] [place], [place] [phone] documented as of this encounter Visit Diagnoses Not on filedocumented in this encounter Care Teams Redeye Gunner Relationship Specialty Start Date End Date Shanice Jones MD [address] [place] [phone] PCP - General Family Medicine 12/22/20 Cary Alonzo Product Marketing Programs ManagerRailway Switchman 08/26/24 documented as of this encounter
--- OUTSIDE RECORDS SUMMARY | 2025-01-20 11:47 | XMS_ITS | Encounter Summary ---
Author Organization [employer] Address [address] [facility] 7t [place] [address] Care Team Providers Care Painter Sign Maintenance Name Role Phone Shanice Jones MD Primary Care Provider [phone] Reason for Visit * Reason Onset Date Comments verbal order needed 12/22/2024 Encounter Details Date Type Department Care Team ([facility] st Contact Info) Description 12/22/2024 Telephone [facility] [address] [place], [place] [phone] Shanice Jones MD [address] [place], [place] [phone] verbal order needed Social History Tobacco Use Types Packs/Day Years [...] the past 12 months, has t he Submittable, gas, oil or water [employer] threatened to shut off services in your [...] as of this encounter Miscellaneous Notes * Telephone Encounter - Jenny Leyva RN - 12/23/2024 2:40 PM EST Tc to Gala @ [facility] requesting verbal orders to do nursing, PT and OT evaluations. Gala reports pt was discharged from [facility] for head injury. Verbal orders provided, Gala verbalized understandingand no further questions or concerns at this time. Tc to pt via s id: [id number] to do status check post discharge from [facility] for head injury. Pt reports they had filled a bowl of water for their dog when they placed the bowl on the ground they accidentally stepped inside of it causing them to slip and fall backwards where they hit their head. Pt reports they're not doing good. Pt reports theirneck and head hurts. On scale of 0-10 pt rates their neck pain 10/10 and headache 9/10 and reports son gave them medication that was prescribed by their neurologist. Pt waiting for the effect of the medication to kick in. Pt denies cp and dizziness. Pt reports blurry vision that has been chronic for them since they had brain surgery in May of last year. Pt denies numbness, tingling or weakness today but reports they were experiencing that a few days ago. Pt reports that Pt reports they feel a lump where they hit their head and asked if that was normal. Pt advised that it could be slightly swollen due to the injury, pt denies fever, drainage or hot to touch at the site. Pt informed SHAVONNEA called [facility] will come to do an eval and be able to assess the lump. Pt was encouraged to come into wic today if they want us to assess the wound but pt refused. Pt reports everyone who has looked at the wound reports they do not see anything. Pt advised to attend scheduled appt for HDF on 01/11/25at 2:45 PM. Pt provided wic hours and educated if wound becomes open, with drainage, foul odor, hotto touch and fever to go back to ED. Pt verbalized understanding and denies any further questions or concerns at this time. * Telephone Encounter - Jhony Rivers - 12/22/2024 4:25 PM EST TC from son reports Pt at ED Date: 12/21/24 Hospital: [facility] Seen for: head injury due to fall Symptomatic No Patient advised will forward to team nurse for follow up * Telephone Encounter - Jhony Rivers - 12/22/2024 3:37 PM EST TC from Gala Moore with [facility] reports pt being recently discharged from [facility] yesterday 12/21/23. Admitted due to head injury due to a at home fall . Pt referred to [facility] for PT and OT evaluations . Gala needing Verbal order to go forward with evaluation . Gala [phone] documented in this encounter Plan of Treatment Upcoming Encounters Date Type Department Care Team (Late st Contact Info) Description 01/27/2025 2:00 PM EDT Procedure Visit [facility] [address] [place] [phone] Shanice Jones MD [address] [place] [address] 03/26/2025 3:30 PM EDT Office Visit [facility] [address] [place] [address] Shanice Jones MD [address] [place] [address] documented as of this encounter Visit Diagnoses Not on filedocumented in this encounter Care Teams Painter Sign Maintenance Relationship Specialty Start Date End Date Shanice Jones MD [address] [place], [place] [phone] PCP - General Family Medicine 12/22/20 Cary Alonzo Tube Builder AirplaneAdvertising Dispatch Clerk 08/26/24 documented as of this encounter
--- OUTSIDE RECORDS SUMMARY | 2025-01-20 11:47 | XMS_ITS | Encounter Summary ---
Author Organization [employer] [facility] Address [address] [facility] 7[address] [place] [address] Care Team Providers Care Perinatal Nurse Name Role Phone Shanice Jones MD Primary Care Provider [phone] Encounter Details Date Type Department Care Team (Late Contact Info) Description 07/11/2023 Abstract [facility] [address] [place] [address] [phone] Shanice Jones MD [address] [place] [address] [phone] Social History Tobacco Use Types Packs/Day Years Used Date Smoking Tobacco: Never Smokeless Tobacco: Never Alcohol Use Standard Drinks/Week Comments Never 0 (1 standard drink = 0.6 oz pur e alcohol) Depression Answer Date Recorded Patient Health Questionnaire-2 Score 0 06/17/2023 Comments Unknown Sex and Gender Information Value [...] 2:00 PM EDT Procedure Visit [facility] [address] [place] [address] [phone] Shanice Jones MD [address] [place] [address] [phone] 03/26/2025 3:30 PM EDT Office Visit [facility] [address] [place] [address] Shanice Jones MD [address] [place], [place] [phone] documented as of this encounter Procedures Procedure Name Priority Date/Time Associated Diagnosis Comments COLONOSCOPY Routine 09/16/2014 documented in this encounter Results * Colonoscopy (09/16/2014) Colonoscopy Normal Normal Narrative Cecile Idalmis - 09/16/2014 [place] 10 [place] [facility] [place] Historical Provider HEALTH MAINTENANCE Final Result documented in this encounter Visit Diagnoses Not on filedocumented in this encounter Care Teams Perinatal Nurse Relationship Specialty Start Date End Date Shanice Jones MD [address] [place], [place] [phone] PCP - General Family Medicine 12/22/20 Cary Alonzo Senior Sustainability AdvisorCrystallography Teacher 08/26/24 documented as of this encounter
--- OUTSIDE RECORDS SUMMARY | 2025-01-20 11:47 | XMS_ITS | Clinical Summary ---
Author Organization Unknown Care Team Providers Care Port Crane Operator Name Role Phone BRENDA FUCHS, ELDER Unavailable Unavailable KIERRA SANTAMARIA, JOAQUIM Unavailable Unavailable Payers Payer Name Policy Type Policy Number Effective Date Expira tion Date MEDICAID [facility] [id number] Problems Condition Name Condition Details Condition Category Status Onset Date Resolution Date Last Treatment Date Treating Clinician Comments UNSPECIFIED INJURY OF HEAD, INITIAL ENCOUNTER Active 12-21 00:00: 00 SYNCOPE AND COLLAPSE Active 12-21 00:00: 00 ESSENTIAL (PRIMARY) HYPERTENSION Active 12-21 00:00: 00 TYPE 2 DIABETES MELLITUS WITHOUT COMPLICATION S Active 12-21 00:00: 00 ANXIETY DISORDER, UNSPECIFIED Active 12-21 00:00: 00 DEPRESSION, UNSPECIFIED Active 12-21 00:00: 00 Allergies, Adverse Reactions, Alerts Allergy Name Allergy Type Status Severity Reaction(s) Onset Date Inactive Date Treating Clinician Comments PENICILLIN Propensity to adverse reactions Active 12-26 21:47: 58 EGGS Propensity to adverse reactions Active 12-26 21:48: 05 LATEX Propensity to adverse reactions Active 12-26 21:48: 13 Medications Ordered Medication Name Filled Medication Name Start Date Stop Date Current Medication? Ordering Clinician Indication Dosage Frequency Signature (SIG) Comments Components acetaminoph en 325 mg tablet 12-26 00:00: 00 Yes [id number] 975 mg EVERY 8 HOURS 975 mg EVERY 8 HOURS (route: oral) Med Classific ation: Analgesic , Anti-infl ammatory or Antipyret ic albuterol sulfate HFA 90 mcg/actuati on aerosol inhaler 12-26 00:00: 00 Yes [id number] 1 puff EVERY 4 HOURS 1 puff EVERY 4 HOURS (route: inhalation ) Med Classific ation: Respirato ry Therapy Agents azelastine 137 mcg (0.1 %) nasal spray 12-26 00:00: 00 Yes [id number] 1 spray DIRECTED 1 spray DIRECTED (route: nasal) Med Classific ation: Respirato ry Therapy Agents budesonide- formoterol HFA 160 mcg-4.8 mcg/actuati on aerosol inhaler 12-26 00:00: 00 Yes [id number] 2 puff 2 TIMES DAILY 2 puff 2 TIMES DAILY (route: inhalation ) Med Classific ation: Respirato ry Therapy Agents cholecalcif tonya (vitamin D3) 25 mcg (1,000 unit) tablet 12-26 00:00: 00 Yes [id number] 1 tablet EVERY AM 1 tablet EVERY AM (route: oral) Med Classific ation: Electroly te Balance-N utritiona l Products clonazepam 0.5 mg tablet 12-26 00:00: 00 Yes [id number] 1 tablet 2 TIMES DAILY 1 tablet 2 TIMES DAILY (route: oral) Med Classific ation: Central Nervous System Agents clopidogrel 75 mg tablet 12-26 00:00: 00 Yes [id number] 1 tablet DAILY 1 tablet DAILY (route: oral) Med Classific ation: Hematolog ical Agents diclofenac 1 % topical gel 12-26 00:00: 00 Yes [id number] Per instruc tions 2 TIMES DAILY Per instructio ns 2 TIMES DAILY (route: topical) Med Classific ation: Dermatolo gical docusate sodium 100 mg capsule 12-26 00:00: 00 Yes [id number] 2 capsule 2 TIMES DAILY 2 capsule 2 TIMES DAILY (route: oral) Med Classific ation: Gastroint estinal Therapy Agents escitalopra m 20 mg tablet 12-26 00:00: 00 Yes [id number] 2 tablet EVERY AM 2 tablet EVERY AM (route: oral) Med Classific ation: Central Nervous System Agents ferrous sulfate 325 mg (65 mg iron) tablet 12-26 00:00: 00 Yes [id number] 1 tablet DAILY 1 tablet DAILY (route: oral) Med Classific ation: Electroly te Balance-N utritiona l Products insulin aspart (U-100) 100 unit/mL (3 mL) subcutaneou s pen 2-15 00:00: 00 Yes [id number] Per instruc tions 3 TIMES DAILY Per instructio ns 3 TIMES DAILY ([facility] Med Classific ation: Endocrine insulin glargine (U-100) 100 unit/mL (3 mL) subcutaneou s pen 2-15 00:00: 00 Yes [id number] 25 unit BEDTIME 25 unit BEDTIME (route: subcutaneo us) Med Classific ation: Endocrine isosorbide mononitrate ER 30 mg tablet,exte nded release 24 hr 2-15 00:00: 00 Yes [id number] 1 tablet EVERY AM 1 tablet EVERY AM (route: oral) Med Classific ation: Cardiovas cular Therapy Agents lactulose 10 gram/15 mL (15 mL) oral solution 2-15 00:00: 00 Yes [id number] Per instruc tions 3 TIMES DAILY Per instructio ns 3 TIMES DAILY (route: oral) Med Classific ation: Gastroint estinal Therapy Agents levothyroxi ne 50 mcg tablet 2-15 00:00: 00 Yes [id number] 1 tablet DAILY 1 tablet DAILY (route: oral) Med Classific ation: Endocrine meclizine 12.5 mg tablet 2-15 00:00: 00 Yes [id number] 25 mg 3 TIMES DAILY 25 mg 3 TIMES DAILY (route: oral) Med Classific ation: Gastroint estinal Therapy Agents metformin 500 mg tablet 2-15 00:00: 00 Yes [id number] 2 tablet 2 TIMES DAILY 2 tablet 2 TIMES DAILY (route: oral) Med Classific ation: Endocrine omeprazole 20 mg delayed release,dis integrating tablet 2-15 00:00: 00 Yes [id number] 1 tablet DAILY 1 tablet DAILY (route: oral) Med Classific ation: Gastroint estinal Therapy Agents pregabalin 200 mg capsule 2-15 00:00: 00 Yes [id number] 1 capsule BEDTIME 1 capsule BEDTIME (route: oral) Med Classific ation: Central Nervous System Agents quetiapine 25 mg tablet 2-15 00:00: 00 Yes [id number] 1 tablet BEDTIME 1 tablet BEDTIME (route: oral) Med Classific ation: Central Nervous System Agents rosuvastati n 10 mg tablet 12-26 00:00: 00 Yes [id number] 1 tablet BEDTIME 1 tablet BEDTIME (route: oral) Med Classific ation: Cardiovas cular Therapy Agents Senna Lax 8.6 mg tablet 12-26 00:00: 00 Yes [id number] 1 tablet 2 TIMES DAILY 1 tablet 2 TIMES DAILY (route: oral) Med Classific ation: Gastroint estinal Therapy Agents sucralfate 1 gram tablet 12-26 00:00: 00 Yes [id number] 1 tablet EVERY 12 HOURS 1 tablet EVERY 12 HOURS (route: oral) Med Classific ation: Gastroint estinal Therapy Agents thiamine HCl (vitamin B1) 50 mg tablet 12-26 00:00: 00 Yes [id number] 1 tablet EVERY AM 1 tablet EVERY AM (route: oral) Med Classific ation: Electroly te Balance-N utritiona l Products Trulicity 4.5 mg/0.5 mL subcutaneou s pen injector 12-26 00:00: 00 Yes [id number] Per instruc tions WEEKLY Per instructio ns WEEKLY (route: subcutaneo us) Med Classific ation: Endocrine zolpidem 10 mg tablet 12-26 00:00: 00 Yes [id number] 1 tablet BEDTIME 1 tablet BEDTIME (route: oral) Med Classific ation: Central Nervous System Agents Vital Signs Vital Name Observation Time Observation Value Commen ts Temperature 2025-01-12 14:36:00.000 98.5 [degF] Temperature 2024-12-29 15:28:00.000 99 [degF] Temperature 2024-12-26 10:54:00.000 98.2 [degF] BMI (%) 2024-12-26 10:54:00.000 29 kg/m2 Height 2024-12-26 10:54:00.000 63 [in_us] Pulse 2025-01-12 14:36:00.000 79 /min Pulse 2024-12-29 15:28:00.000 66 /min Pulse 2024-12-26 10:54:00.000 55 /min O2 Saturation (%) 2025-01-12 14:36:00.000 98 % O2 Saturation (%) 2025-01-12 14:09:00.000 98 % O2 Saturation (%) 2025-01-08 15:23:00.000 98 % O2 Saturation (%) 2024-12-29 15:28:00.000 96 % O2 Saturation (%) 2024-12-26 10:55:00.000 98 % Respirations 2025-01-12 14:36:00.000 16 /min Respirations 2025-01-12 14:09:00.000 16 /min Respirations 2025-01-06 17:47:00.000 18 /min Respirations 2025-01-01 13:18:00.000 18 /min Respirations 2024-12-29 15:28:00.000 16 /min Respirations 2024-12-26 10:54:00.000 18 /min Weight (lbs) 2024-12-26 10:54:00.000 168 [lb_av] Systolic Blood Pressure 2025-01-12 14:37:00.000 112 mm [Hg] Systolic Blood Pressure 2025-01-12 14:09:00.000 122 mm [Hg] Systolic Blood Pressure 2025-01-08 15:23:00.000 126 mm [Hg] Systolic Blood Pressure 2025-01-06 17:47:00.000 130 mm [Hg] Systolic Blood Pressure 2025-01-01 13:18:00.000 144 mm [Hg] Systolic Blood Pressure 2024-12-29 15:28:00.000 130 mm [Hg] Systolic Blood Pressure 2024-12-26 10:55:00.000 110 mm [Hg] Diastolic Blood Pressure 2025-01-12 14:37:00.000 72 mm [Hg] Diastolic Blood Pressure 2025-01-12 14:09:00.000 76 mm [Hg] Diastolic Blood Pressure 2025-01-08 15:23:00.000 82 mm [Hg] Diastolic Blood Pressure 2025-01-06 17:47:00.000 80 mm [Hg] Diastolic Blood Pressure 2025-01-01 13:18:00.000 100 m m[Hg] Diastolic Blood Pressure 2024-12-29 15:28:00.000 74 mm [Hg] Diastolic Blood Pressure 2024-12-26 10:55:00.000 82 mm [Hg] Plan of Treatment Planned Activity Planned Date Details Comments Future Scheduled Test SKILLED NU RSE TO EVALUATE PATIENT, IDENTIFY PRIMARY AND CO-MORBID CONDITIONS CODED PER CODING GUIDELINES, AND DEVELOP PATIENT SPECIFIC PLAN OF CARE THAT INCLUDES PATIENT GOAL FOR HOME HEALTH. [code = SKILLED NURSE TO EVALUATE PATIENT, IDENTIFY PRIMARY AND CO-MORBID CONDITIONS CODED PER CODING GUIDELINES, AND DEVELOP PATIENT SPECIFIC PLAN OF CARE THAT INCLUDES PATIENT GOAL FOR HOME HEALTH.] Future Scheduled Test SKILLED NU RSE WILL MAINTAIN SITUATIONAL AWARENESS FOR SAFETY AND WILL NOTIFY CLINICAL BOILER TESTER AND PHYSICIAN/PROVIDER WITH ANY CHANGE IN CONDITION. [code = SKILLED NURSE WILL MAINTAIN SITUATIONAL AWARENESS FOR SAFETY AND WILL NOTIFY CLINICAL BOILER TESTER AND PHYSICIAN/PROVIDER WITH ANY CHANGE IN CONDITION.] Future Scheduled Test SKILLED NU RSE FOR O/A OF GENERAL HEALTH STATUS OF PAIN, CARDIAC, RESPIRATORY, GASTROINTESTINAL, GENITOURINARY, SKIN, NEUROLOGIC, ENDOCRINE SYSTEMS TO IDENTIFY CHANGES ASSOCIATED WITH EXACERBATION FOR EARLY INTERVENTION OF COMPLICATIONS WEEKLY [code = SKILLED NURSE FOR O/A OF GENERAL HEALTH STATUS OF PAIN, CARDIAC, RESPIRATORY, GASTROINTESTINAL, GENITOURINARY, SKIN, NEUROLOGIC, ENDOCRINE SYSTEMS TO IDENTIFY CHANGES ASSOCIATED WITH EXACERBATION FOR EARLY INTERVENTION OF COMPLICATIONS WEEKLY] Future Scheduled Test SKILLED NU RSE TO REVIEW PATIENT MEDICATIONS. INSTRUCT PATIENT/CAREGIVER ON MONITORING OF EFFECTIVENESS, ADVERSE DRUG REACTIONS, SIDE EFFECTS OF ALL MEDICATIONS (PRESCRIPTION/-OTC), AND HOW AND WHEN TO REPORT PROBLEMS. [code = SKILLED NURSE TO REVIEW PATIENT MEDICATIONS. INSTRUCT PATIENT/CAREGIVER ON MONITORING OF EFFECTIVENESS, ADVERSE DRUG REACTIONS, SIDE EFFECTS OF ALL MEDICATIONS (PRESCRIPTION/-OTC), AND HOW AND WHEN TO REPORT PROBLEMS.] Future Scheduled Test SKILLED NU RSE TO PRE-POUR MEDICATION PER MEDICATION LIST WEEKLY [code = SKILLED NURSE TO PRE-POUR MEDICATION PER MEDICATION LIST WEEKLY] Future Scheduled Test SKILLED NU RSE FOR O/A AND SKILLED TEACHING RELATED TO MANAGEMENT OF DEPRESSIVE SYMPTOMS AND/OR DEPRESSION. SN TO REPORT SIGNIFICANT CHANGE IN DEPRESSIVE SYMPTOMS TO CLINICAL PROVIDER FOR EARLY INTERVENTION. [code = SKILLED NURSE FOR O/A AND SKILLED TEACHING RELATED TO MANAGEMENT OF DEPRESSIVE SYMPTOMS AND/OR DEPRESSION. SN TO REPORT SIGNIFICANT CHANGE IN DEPRESSIVE SYMPTOMS TO CLINICAL PROVIDER FOR EARLY INTERVENTION.] Future Scheduled Test SKILLED NU RSE FOR O/A AND SKILLED TEACHING OF COPING SKILLS TO MANAGE ANXIETY AND MAINTAIN SAFETY. [code = SKILLED NURSE FOR O/A AND SKILLED TEACHING OF COPING SKILLS TO MANAGE ANXIETY AND MAINTAIN SAFETY.] Future Scheduled Test SKILLED NU RSE TO ASSESS PATIENTS PSYCHOSOCIAL STATUS TO IDENTIFY POTENTIAL ISSUES THAT MAY COMPLICATE THE PROVISION OF THE PLAN OF CARE INCLUDING THE PATIENTS ABILITY TO ACCESS COMMUNITY RESOURCES AND PSYCHOSOCIAL SUPPORT SERVICES. [code = SKILLED NURSE TO ASSESS PATIENTS PSYCHOSOCIAL STATUS TO IDENTIFY POTENTIAL ISSUES THAT MAY COMPLICATE THE PROVISION OF THE PLAN OF CARE INCLUDING THE PATIENTS ABILITY TO ACCESS COMMUNITY RESOURCES AND PSYCHOSOCIAL SUPPORT SERVICES.] Future Scheduled Test OXYGEN VIA /NASAL CANNULA) @ 2 LITERS AT HS). SKILLED NURSE FOR O/A AND SKILLED TEACHING OF SAFE OXYGEN USE IN THE HOME. [code = OXYGEN VIA /NASAL CANNULA) @ 2 LITERS AT HS). SKILLED NURSE FOR O/A AND SKILLED TEACHING OF SAFE OXYGEN USE IN THE HOME.] Future Scheduled Test SKILLED NU RSE FOR O/A AND TEACHING OF ENDOCRINE SYSTEM TO IDENTIFY CHANGES ASSOCIATED WITH EXACERBATION OF DIABETES FOR EARLY INTERVENTION OF COMPLICATIONS. [code = SKILLED NURSE FOR O/A AND TEACHING OF ENDOCRINE SYSTEM TO IDENTIFY CHANGES ASSOCIATED WITH EXACERBATION OF DIABETES FOR EARLY INTERVENTION OF COMPLICATIONS.] Future Scheduled Test SKILLED NU RSE TO PROVIDE TEACHING ON SIGNS AND SYMPTOMS AND MANAGEMENT OF HYPERTENSION. [code = SKILLED NURSE TO PROVIDE TEACHING ON SIGNS AND SYMPTOMS AND MANAGEMENT OF HYPERTENSION.] Future Scheduled Test SKILLED NU RSE FOR O/A AND TEACHING ON SIGNS AND SYMPTOMS AND MANAGEMENT OF HYPOTENSION [code = SKILLED NURSE FOR O/A AND TEACHING ON SIGNS AND SYMPTOMS AND MANAGEMENT OF HYPOTENSION] Future Scheduled Test NEED FOR S KILLED TEACHING AND INTERVENTION RELATED TO CLOSED HEAD LACERATION TO LEFT SCALP. ASSESS MONITOR AREA FOR SYMPTOMS OF COMPLICATION REPORT TO MD NECESSARY . [code = NEED FOR SKILLED TEACHING AND INTERVENTION RELATED TO CLOSED HEAD LACERATION TO LEFT SCALP. ASSESS MONITOR AREA FOR SYMPTOMS OF COMPLICATION REPORT TO MD NECESSARY .] Goal Patient Goal - TO REDUCE MICHAEL N Goal Provider Goal - A PLAN OF CARE WILL BE ESTABLISHED THAT MEETS PATIENT'S PENITENTIARY NEEDS AND INCLUDES PATIENT GOAL FOR HOME HEALTH. Goal Provider Goal - PATIENT WILL REMAIN SAFE IN THE COMMUNITY AND WILL BE FREE OF DANGER TO SELF AND OTHERS THROUGHOUT THE CERTIFICATION PERIOD. Goal Provider Goal - CHANGE IN GENERAL HEALTH STATUS WILL BE IDENTIFIED AND REPORTED TO PHYSICIAN FOR PROMPT INTERVENTION TO MINIMIZE ASSOCIATED RISKS THROUGHOUT CERTIFICATION PERIOD. Goal Provider Goal - PATIENT/CAREGIVER WILL VERBALIZE UNDERSTANDING OF EDUCATION PROVIDED ON MEDICATIONS BY THE END OF THE CERTIFICATION PERIOD. Goal Provider Goal - PATIENT WILL COMPLY WITH MEDICATION WHEN SKILLED NURSE PRE-POURS MEDICATION THROUGHOUT CERTIFICATION PERIOD. Goal Provider Goal - PATIENT WILL REMAIN SAFE WITHOUT DECOMPENSATION IN DEPRESSIVE CONDITION, WHILE MAINTAINING OPTIMAL LEVEL OF MENTAL HEALTH AND WELL BEING THROUGHOUT CERTIFICATION PERIOD. Goal Provider Goal - PATIENT WILL BE ABLE TO PERFORM DAILY FUNCTIONS AND HAVE OPTIMAL IMPROVEMENT IN LEVEL OF ANXIETY THROUGHOUT CERTIFICATION PERIOD. Goal Provider Goal - PSYCHOSOCIAL NEEDS WILL BE IDENTIFIED AND PLAN IMPLEMENTED TO MINIMIZE RISK THROUGHOUT CERTIFICATION PERIOD. Goal Provider Goal - PATIENT/CAREGIVER WILL VERBALIZE/DEMONSTRATE UNDERSTANDING OF SAFE OXYGEN USE IN THE HOME THROUGHOUT THE EPISODE. Goal Provider Goal - PATIENT/CAREGIVER WILL VERBALIZE SIGNS AND SYMPTOMS OF EXACERBATION OF DIABETES TO REPORT TO NURSE/PHYSICIAN THROUGHOUT THE CERTIFICATION PERIOD. Goal Provider Goal - PATIENT/CAREGIVER WILL VERBALIZE SIGNS AND SYMPTOMS OF HYPERTENSION AND WILL BE ABLE TO DEMONSTRATE ABILITY TO MANAGE EXACERBATION BY END OF THE EPISODE. Goal Provider Goal - PATIENT/CAREGIVER WILL VERBALIZE SIGNS AND SYMPTOMS OF HYPOTENSION AND WILL BE ABLE TO DEMONSTRATE ABILITY TO MANAGE EXACERBATION BY END OF THE EPISODE. Goal Provider Goal - WOUND ASSESSMENT WILL BE COMPLETED AND PATIENT WILL HAVE IMPROVED WOUND STATUS EVIDENCED BY NO SIGNS AND SYMPTOMS OF INFECTION, DECREASED WOUND SIZE, AND/OR NO COMPLICATIONS BY THE END OF THE CERTIFICATION PERIOD. Encounters Start Date/Time End Date/Time Encounter Type Admission Type Attending [facility] Care Department Encounter ID Discharge Date Discharge Status Discharge Condition Discharge Reason Percent Goals Met 2024-12-26 00:00:00 2025-02-23 00:00:00 Outpatient NEW ADMISSION JOAQUIM LOZADA [facility] [id number] 27.27
--- OUTSIDE RECORDS SUMMARY | 2025-01-20 11:47 | XMS_ITS | Encounter Summary ---
Author Organization [employer] Address [address] [facility] 7t [place] [address] Care Team Providers Care Pet Adoption Counselor Name Role Phone Shanice Jones MD Primary Care Provider [phone] Reason for Visit * Reason Comments Transition Of Care (Tcm) HDF scheduled. Encounter Details Date Type Department Care Team ([facility] st Contact Info) Description 12/23/2024 Patient Outreach [facility] [address] [place], [place] [phone] Shanice Jones MD [address] [place] [address] Transition Of Care (Tcm) (HDF scheduled. ) Social History Tobacco Use Types Packs/Day [...] * Significant Event - Johanne Izaguirre - 12/23/2024 9:59 AM EST 12/23/24 [id number] Hospital Discharges and Admission for [facility] Type of Visit Hospital Admission Date of Admission/Visit 12/17/24 Date of Discharge 12/21/24 Facility [facility] Diagnosis Fall, Head injury Disposition Discharged Home Follow-Up Actions Follow-Up Needed Provider appointment Follow-Up Outcome Booked Appointment;Spoke to Caregiver Initial Contact Date 12/23/24 SIMIN Berry placed outbound call to patient for HDF outreach. Patient's name and were confirmed. Patient educated on the importance of follow up with provider following inpatient admission. Patient offered an HDF appt. Patient is agreeable to an appointment and has been scheduled for 01/11 at2:45pm with Dr. Jones. Patient provided with education on contacting the Health Center with any questions or concerns prior to the scheduled appointment. Patient educated on extended clinic hours on Mondays and Wednesdays, and Walk-In Urgent Care Located in [facility]. Patient provided with after-hours line for [facility], , which offer night time triage service and option to transfer toon call provider if needed. CC scanned discharge summary into patient's chart. Biggest concern for appointment at this time is no concerns. Appropriate screenings completed in anticipation of appointment. documented in this encounter Plan of Treatment Upcoming Encounters Date Type Department Care Team (Late st Contact Info) Description 01/27/2025 2:00 PM EDT Procedure Visit [facility] MEDICINE [address] [place] [address] [phone] Shanice Jones MD [address] [place] [address] 03/26/2025 3:30 PM EDT Office Visit [facility] MEDICINE [address] [place] [phone] Shanice Jones MD [address] [place], [place] [phone] documented as of this encounter Visit Diagnoses Not on filedocumented in this encounter Care Teams Pet Adoption Counselor Relationship Specialty Start Date End Date Shanice Jones MD [address] [place] [address] [phone] PCP - General Family Medicine 12/22/20 Cary Alonzo Smooth PlaterFigure Clerk 08/26/24 documented as of this encounter
--- OUTSIDE RECORDS SUMMARY | 2025-01-20 11:47 | XMS_ITS | Encounter Summary ---
Author Organization [employer] Address [address] [place] [address] Care Team Providers Care Cad Manager Name Role Phone Shanice Jones MD Primary Care Provider [phone] Reason for Visit * Reason Onset Date Comments recall 12/22/2024 Encounter Details Date Type Department Care Team ([facility] st Contact Info) Description 12/22/2024 Telephone [facility] [address] [place], [place] [phone] Shanice Jones MD [address] [place], [place] [phone] recall Social History Tobacco Use Types Packs/Day Years [...] encounter Miscellaneous Notes * Telephone Encounter - Maria De Jesus Werner MA - 01/05/2025 1:06 PM EST Telephone call to patient to schedule the following recall: Visit type: Office visit Appointment notes: DM and fatty liver Patient agree to appointment on 03/26/25 at 3:30 PM with Robert. documented in this encounter Plan of Treatment Upcoming Encounters Date Type Department Care Team (Late st Contact Info) Description 01/27/2025 2:00 PM EDT Procedure Visit [facility] MED[facility]INE [address] [place] [phone] Shanice Jones MD [address] [place] [phone] 03/26/2025 3:30 PM EDT Office Visit [facility] MED[facility] [address] [place] [phone] Shanice Jones MD [address] [place] [phone] documented as of this encounter Visit Diagnoses Not on filedocumented in this encounter Care Teams Cad Manager Relationship Specialty Start Date End Date Shanice Jones MD [address] [place] [phone] PCP - General Family Medicine 12/22/20 Cary Alonzo Carnival WorkerSoftware Security Consultant 08/26/24 documented as of this encounter
--- OUTSIDE RECORDS SUMMARY | 2025-01-20 11:47 | XMS_ITS | Encounter Summary ---
Author Organization [facility] Address [address] [place] [address] [address] [place] [address] Care Team Providers Care Sales And Marketing Administrator Name Role Phone Shanice Jones MD Primary Care Provider [phone] Encounter Details Date Type Department Care Team (Latest Contact Info) Description 12/05/2018 Abstract [facility] CONVERSIONS Dental, Provider, DDS Social History Tobacco Use Types Packs/Day Years Used Date Smoking Tobacco: Never Assessed Comments Unknown Sex and Gender Information Value Date Recorded Sex Assigned at Female 09/10/2022 10:21 AM EDT Legal Sex Female 10:21 AM EDT Gender Identity Female 09/10/2022 10:21 AM EDT Sexual Orientation Choose not to disclose 2021 10:21 AM EDT documented as of this encounter Plan of Treatment Upcoming Encounters Date Type Department Care Team ( st Contact Info) Description 01/27/2025 2:00 PM EDT Procedure Visit [facility] MEDICINE [address] [place] [phone] Shanice Jones MD [address] [place] [phone] 03/26/2025 3:30 PM EDT Office Visit [facility] MEDICINE [address] [place] [phone] Shanice Jones MD [address] [place] [phone] documented as of this encounter Visit Diagnoses Not on filedocumented in this encounter Care Teams Sales And Marketing Administrator Relationship Specialty Start Date End Date Shanice Jones MD [address] [place] [address] PCP - General Family Medicine 12/22/20 Cary Alonzo Principal Statistical ProgrammerGreens Or Grounds Superintendent 08/26/24 documented as of this encounter
--- OUTSIDE RECORDS SUMMARY | 2025-01-20 11:48 | XMS_ITS | Encounter Summary ---
Author Organization [employer] Address [address] [facility] 7t [place] [address] Care Team Providers Care Life Enrichment Director Name Role Phone Shanice Jones MD Primary Care Provider [phone] Reason for Visit * Reason Onset Date Comments Med Refill 02/14/2024 Encounter Details Date Type Department Care Team ([facility] st Contact Info) Description 02/14/2024 Telephone [facility] MEDICINE [address] [place], [place] [phone] Shanice Jones MD [address] [place], [place] [phone] Med Refill Social History Tobacco Use Types Packs/Day Years [...] encounter Miscellaneous Notes * Telephone Encounter - Nelsy Ulloa RN - 02/14/2024 11:55 AM EDT Patient has not received Clonazepam from [facility] provider. She has been receiving from Oliverio Perales [address] [place] [address], TC via P/I#[id number], reviewed with patient the above information and advised to call Dr Perales. Patient stated she understood. * Telephone Encounter - Nava Carmichael - 02/14/2024 11:42 AM EDT TC from pt requesting medication refill. Medications needing refill : clonazePAM (KlonoPIN) 1 MG tablet To be sent to: [facility] Pharmacy documented in this encounter Plan of Treatment Upcoming Encounters Date Type Department Care Team (Late st Contact Info) Description 01/27/2025 2:00 PM EDT Procedure Visit [facility] MEDICINE [address] [place] [phone] Shanice Jones MD [address] [place] [phone] 03/26/2025 3:30 PM EDT Office Visit [facility] MEDICINE [address] [place] [address] Shanice Jones MD [address] [place] [phone] documented as of this encounter Visit Diagnoses Not on filedocumented in this encounter Care Teams Life Enrichment Director Relationship Specialty Start Date End Date Shanice Jones MD [address] [place] [address] PCP - General Family Medicine 12/22/20 Cary Alonzo Food Service SubstituteVocational Horticulture Instructor 08/26/24 documented as of this encounter
--- OUTSIDE RECORDS SUMMARY | 2025-01-20 11:48 | XMS_ITS | Clinical Summary ---
Author Organization [facility] ity Address [address] [place] [address] Care Team Providers Care Cleaning Matron Name Role Phone Unavailable Primary Care Provider Unavailabl e Social History Tobacco Use Types Packs/Day Years Used Date Smoking Tobacco: Never Assessed Comments Unknown Sex and Gender Information Value Date Recorded Sex Assigned at Not on file Legal Sex Female 4:51 AM EST Gender Identity Not on file Sexual Orientation Not on file Plan of Treatment Health Maintenance Due Date Last Done Comments Breast Cancer Screening 1965 DTaP,Tdap,and Td Vaccines (1 - Tdap) 1984 Hepatitis B Vaccines (1 of 3 - 19+ 3-dose series) 1984 Cervical Cancer Screening: P ap Smear 1986 Pneumococcal Vaccine: 50+ Ye ars (1 of 1 - PCV) 2015 Zoster Vaccines (1 of 2) 2015 COVID-19 Vaccine ( - 2023-2 5 season) 2024 Influenza Vaccine (#1) 2024 RSV Immunization Patients 60 + Years Old (1 - 1-dose 75+ series) 2040 HIB Vaccines Aged Out No longer eligi ble based on patient's age to complete this topic HPV Vaccines Aged Out No longer eligi ble based on patient's age to complete this topic Hepatitis A Vaccines Aged Out No long er eligible based on patient's age to complete this topic IPV Vaccines Aged Out No longer eligi ble based on patient's age to complete this topic MMR Vaccines Aged Out No longer eligi ble based on patient's age to complete this topic Meningococcal ACWY Vaccine Aged Out N o longer eligible based on patient's age to complete this topic Meningococcal B Vacine Aged Out No lo nger eligible based on patient's age to complete this topic Pneumococcal Vaccine: Pediat rics (0 to 5 Years) and At-Risk Patients (6 to 64 Years) Aged Out No longer eligible b ased on patient's age to complete this topic RSV Immunization Patients Un luis carlos 20 months Aged Out No longer eligible b ased on patient's age to complete this topic Varicella Vaccines Aged Out No longer eligible based on patient's age to complete this topic
--- OUTSIDE RECORDS SUMMARY | 2025-01-20 11:48 | XMS_ITS | Encounter Summary ---
Author Organization [employer] Address 75 [facility] 7t [place] [address] Care Team Providers Care Epic Trainer Name Role Phone Shanice Jones MD Primary Care Provider [phone] Reason for Referral * Consultation (Routine) - Closed Specialty Diagnoses / Procedures Referred By Contdea t Referred To Contact Rheumatology Diagnoses Spinal arthritis Shanice Jones MD [address] [place] [address] Phone: tel: fax: [facility] [address] [facility] [address] [place], [place] Phone: tel: fax: Referral ID Status Reason Start Date Expiration Date V isits Requested Visits Authorized [id number] Closed Specialty Services Required 04/03/2024 04/03/2025 1 1 Encounter Details Date Type Department Care Team (Late st Contact Info) Description 04/03/2024 Orders Only [facility] MEDICINE [address] [place], [place] [phone] Shnaice Jones MD [address] [place] [address] Spinal arthritis (Primary Dx) Social History Tobacco Use Types Packs/Day Years [...] Description 01/27/2025 2:00 PM EDT Procedure Visit [facility] MEDICINE [address] [place] [phone] Shanice Jones MD [address] [place] [address] 03/26/2025 3:30 PM EDT Office Visit [facility] MEDICINE [address] [place] [phone] Shanice Jones MD [address] [place] [phone] Scheduled Referrals Name Type Priority Associated Diagnoses Order Schedule Referral to Rheumatology Outpatient Referral Routine Spinal arthritis Expected: 04/03/2024 (Approximate), Expires: 04/03/2025 documented as of this encounter Procedures Procedure Name Priority Date/Time Associated Diagnosis Comments CBC WITH AUTO DIFFERENTIAL Routine 06/15/2024 4:43 PM EDT Spinal arthritis APTT Routine 06/15/2024 4:43 PM EDT Spinal arthritis PROTHROMBIN TIME-INR Routine 06/15/2024 4:43 PM EDT Spinal arthritis COMPREHENSIVE METABOLIC PANEL Routine 06/15/2024 4:43 PM EDT Spinal arthritis documented in this encounter Results * (ABNORMAL) Comprehensive Metabolic Panel (06/15/2024 4:43 PM EDT) Sodium 140 135 - 145 mmol/L [facility] Potassium 4.2 3.3 - 5.1 mmol/L [facility] Chloride 105 96 - 108 mmol/L [facility] Carbon Dioxide 26 22 - 29 mmol/L [facility] Anion Gap 13 12 - 20 [facility] Urea Nitrogen (BUN) 17(H) 9 - 16 mg/dL [facility] Creatinine, Serum 0.84 0.5 - 1.4 mg/dL [facility] Creatinine Clr Calc Pharmacy 75.7 [facility] Comment:Provided height and weight: 160.02 cm,87.543 kg.eGFR (calculated from the MDRD study equation) and eCrCl(calculated from the Cockcroft-Gault equation) are based ondifferent parameters and may not yield comparable results.If eCrCl result is absurd, please check patient'sheight/weight. Estimated Glomerular Filt Rate >60 [facility] Comment:NOTE: For -Am erican individuals, multiply the result by 1.210.Chronic Kidney Disease: Estimated GFR < 60 mL/min/1.92o4Jxctux Kidney Disease: Estimated GFR < 15 mL/min/1.73m2 Glucose 99 60 - 115 mg/dL [facility] Calcium 10.6(H) 8.4 - 10.2 mg/dL [facility] Bilirubin, Total 1.3(H) 0.0 - 1.0 mg/dL [facility] Aspartate Amino Transferase 52(H) 5 - 31 U/L [facility] Alanine Aminotransferase 45(H) 0 - 31 U/L [facility] Total Protein 7.7 6.5 - 8.0 g/dL [facility] Albumin Level 4.3 3.5 - 5.0 g/dL [facility] Alkaline Phosphatase 130(H) 39 - 117 U/L [facility] 06/15/2024 4:43 PM EDT 06/15/2024 4:47 PM EDT Generic External Data Provider LAB BLOOD ORDERAB LES Final Result Performing Organization Address [facility]/ZIP Co de Phone Number [facility] [address] [place] [phone] * Partial Thromboplastin Time, Activated (APTT) (06/15/2024 4:43 PM EDT) Partial Thromboplastin Time 28.6 26.0 - 36.8 SEC [facility] Comment:For information rega rding the monitoring of direct thrombininhibitors, please refer to Pharmacy. 06/15/2024 4:43 PM EDT 06/15/2024 4:47 PM EDT us Generic External Data Provider LAB BLOOD ORDERAB LES Final Result Performing Organization Address City/[facility]/ZIP Co de Phone Number [facility] [address] [place] [phone] * Prothrombin Time-INR (06/15/2024 4:43 PM EDT) Prothrombin Time 12.2 11.1 - 13.3 SEC [facility] INTERNATIONAL NORM RATIO 1.0 0.9 - 1.1 [facility] Comment:INTERNATIONAL NORMAL IZED RATIO (INR) REFERENCE RANGES Reference RangeFor patients not on anticoagulant therapy: 0.9 - 1.1INR ranges for oral anticoagulanttherapy:For prevention and treatment of venous thrombosis and pulmonary embolism: 2.0 - 3.0For acute myocardial infarction with aspirin therapy: 2.0 - 3.0For acute myocardial infarction without aspirin therapy: 3.0 - 4.0For patients with mechanical prosthetic heart valves: 2.5 - 3.5 06/15/2024 4:43 PM EDT 06/15/2024 4:47 PM EDT us Generic External Data Provider LAB BLOOD ORDERAB LES Final Result Performing Organization Address City/State/[facility] Co de Phone Number [facility] [address] [place] [phone] * (ABNORMAL) CBC auto differential (06/15/2024 4:43 PM EDT) White Blood Count 8.1 4.8 - 10.8 X10*3/uL [facility] Red Blood Count 4.16(L) 4.20 - 5.50 X10*6/uL [facility] Hemoglobin 11.5(L) 12.0 - 16.0 g/dl [facility] Hematocrit 36.0(L) 37.0 - 47.0 % [facility] Mean Corpuscular Volume 86.5 80.0 - 98.0 fL [facility] Mean Corpuscular Hemoglobin 27.6 27.0 - 33.0 pg [facility] Mean Corpuscular HGB Conc 31.9 31.0 - 35.0 g/dl [facility] Red Cell Distribution Width 17.1(H) 11.0 - 16.0 % [facility] Platelet Count 105(L) 160 - 400 X10*3/uL [facility] Mean Platelet Volume 9.8 9.4 - 12.3 fL [facility] Neutrophils Percent Auto 56.5 45 - 73 % [facility] Imm Gran Pct Auto 0.2 0.0 - 0.4 % [facility] Lymphocytes Percent Auto 32.4 20 - 40 % [facility] Monocytes Percent Auto 6.8 2 - 11 % [facility] Eosinophils Percent Auto 3.2 0 - 4 % [facility] Basophils Percent Auto 0.9 0 - 2 % [facility] NRBC Pct Auto 0.0 0.0 - 0.2 /100WBC [facility] Neutrophils Absolute Auto 4.6 2.0 - 8.3 x10*3/uL [facility] Imm Gran Abs Auto 0.02 0.00 - 0.03 X10*3/uL [facility] Lymphocytes Absolute Auto 2.6 1.2 - 4.9 X10*3/uL [facility] Monocytes Absolute Auto 0.6 0.1 - 1.2 X10*3/uL [facility] Eosinophils Absolute Auto 0.3 0.0 - 0.4 X10*3/uL [facility] Basophils Absolute Auto 0.1 0.0 - 0.2 X10*3/uL [facility] NRBC Abs Auto 0.000 0.0 - 0.012 X10*3/uL [facility] 06/15/2024 4:43 PM EDT 06/15/2024 4:47 PM EDT us Generic External Data Provider LAB BLOOD ORDERAB LES Final Result Performing Organization Address City/State/[facility] Co de Phone Number [facility] [address] [place] [phone] documented in this encounter Visit Diagnoses Diagnosis Spinal arthritis- Primary documented in this encounter Care Teams Epic Trainer Relationship Specialty Start Date End Date Shanice Jones MD [address] [place] [phone] PCP - General Family Medicine 12/22/20 Cary Alonzo Career Services CoordinatorFailure Analysis Engineer 08/26/24 documented as of this encounter
--- OUTSIDE RECORDS SUMMARY | 2025-01-20 11:48 | XMS_ITS | Encounter Summary ---
Author Organization [employer] Address [address] [facility] 7t [place] [address] Care Team Providers Care Credit Relationship Manager Name Role Phone Shanice Jones MD Primary Care Provider [phone] Reason for Visit * Reason Comments Med Refill Encounter Details Date Type Department Care Team ([facility] st Contact Info) Description 01/19/2025 Refill [facility] MEDICINE [address] [place], [place] [phone] Shanice Jones MD [address] [place], [place] [phone] Vitamin D deficiency Social History Tobacco Use Types Packs/Day Years [...] Description 01/27/2025 2:00 PM EDT Procedure Visit [facility] MEDICINE [address] [place] [phone] Shanice Jones MD [address] [place] [phone] 03/26/2025 3:30 PM EDT Office Visit [facility] MEDICINE [address] [place] [phone] Shanice Jones MD [address] [place] [phone] documented as of this encounter Visit Diagnoses Diagnosis Vitamin D deficiency documented in this encounter Care Teams Credit Relationship Manager Relationship Specialty Start Date End Date Shanice Jones MD [address] [place] [phone] PCP - General Family Medicine 12/22/20 Cary Alonzo Neon MolderBingo Cashier 08/26/24 documented as of this encounter
--- OUTSIDE RECORDS SUMMARY | 2025-01-20 11:48 | XMS_ITS | Encounter Summary ---
Author Organization [employer] Address 75 [facility] 7t [place] [address] Care Team Providers Care Senior Java Architect Name Role Phone Shanice Jones MD Primary Care Provider [phone] Reason for Visit * Reason Onset Date Comments [employer] 01/11/2025 U nderwear, protective prevail per fit xxlrg Encounter Details Date Type Department Care Team (Late st Contact Info) Description 01/11/2025 Telephone [facility] MEDICINE [address] [place], [place] [phone] Shanice Jones MD [address] [place], [place] [phone] [employer] (Underwear, protective prevail per fit xxlrg) Social History Tobacco Use Types Packs/Day Years [...] encounter Miscellaneous Notes * Telephone Encounter - Carin Reed MA - 01/12/2025 10:01 AM EST Form has been signed by the PCP and faxed to [employer]. Form is sent in for scanning. * Telephone Encounter - Carin Reed MA - 01/11/2025 2:38 PM EST Received medical necessity form from [employer] for Underwear, protective prevail . Form has been filled out and placed on PCP desk for signature. documented in this encounter Plan of Treatment Upcoming Encounters Date Type Department Care Team (Late st Contact Info) Description 01/27/2025 2:00 PM EDT Procedure Visit [facility] MEDICINE [address] [place] [phone] Shanice Jones MD [address] [place] [address] 03/26/2025 3:30 PM EDT Office Visit [facility] MEDICINE [address] [place] [phone] Shanice Jones MD [address] [place] [address] documented as of this encounter Visit Diagnoses Not on filedocumented in this encounter Care Teams Senior Java Architect Relationship Specialty Start Date End Date Shanice Jones MD [address] [place], [place] [phone] PCP - General Family Medicine 12/22/20 Cary Alonzo Field ScoutWoodwind Reeds Cutter 08/26/24 documented as of this encounter
--- OUTSIDE RECORDS SUMMARY | 2025-01-20 11:48 | XMS_ITS | Clinical Summary ---
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 hyperglycemia, with long-term current use of insulin (CMS/HCC) LIPID PANEL, STANDARD Routine 06/05/2024 11:45 AM EDT Type 2 diabetes mellitus with hyperglycemia, with long-term current use of insulin (CMS/HCC) HM PAP/HPV Routine 10/24/2018 HM COLONOSCOPY Routine 09/16/2014 from Last 3 Months or Most Recently Relevant to Health Maintenance Results * Liver Fibrosis (HCV), FibroTest-ActiTest Panel (11/27/2024 1:22 PM EST) Liver Fibrosis Score 0.29 [facility] Liver Fibrosis Stage F1 [facility] Liver Fibrosis Interpretation SEE NOTE [facility] Comment:minimal fibrosisFibr o Test Score (f) Metavir Score f>=0 and f<=0.21 : F0 (no fibrosis)f>0.21 and f<=0.27 : F0-F1 (no fibrosis)f>0.27 and f<=0.31 : F1 (minimal fibrosis)f>0.31 and f<=0.48 : F1-F2 (minimal fibrosis)f>0.48 and f<=0.58 : F2 (moderate fibrosis)f>0.58 and f<=0.72 : F3 (advanced fibrosis)f>0.72 and f<=0.74 : F3-F4 (advanced fibrosis)f>0.74 and f<=1.00 : F4 (severe fibrosis) Nec Inflam Act Score 0.07 [facility] Nec Inflam Act Grade A0 [facility] Nec Inflam Act Interpretation SEE NOTE [facility] Comment:no activityActiTest Score (a) Metavir Score a>=0 and a<=0.17 : A0 (no activity)a>0.17 and a<=0.29 : A0-A1 (no activity)a>0.29 and a<=0.36 : A1 (minimal activity)a>0.36 and a<=0.52 : A1-A2 (minimal activity)a>0.52 and a<=0.60 : A2 (significant activity)a>0.60 and a<=0.62 : A2-A3 (significant activity)a>0.62 and a<=1.00 : A3 (severe activity) JDR-[id number]-Macroglo bulin 165 106 - 279 mg/dL [facility] FIB-Haptoglobin 201 43 - 212 mg/dL [facility] FIB-Apolipoprotein A1 122 101 - 198 mg/dL [facility] FIB-Total Bilirubin 0.9 0.2 - 1.2 mg/dL [facility] FIB-GGT 55 3 - 70 U/L [facility] FIB-ALT 19 6 - 29 U/L [facility] Reference ID [id number] [facility] Footnote SEE NOTE [facility] Comment: The reliability of results is dependent on compliance withthe preanalytical and analytical conditions recommended by[employer]. The tests have to be deferred for: acutehemolysis, acute hepatitis, acute inflammation, extrahepatic cholestasis. The advice of a specialist should besought for interpretation in chronic hemolysis and Gilbert'ssyndrome. The test interpretation is not validated in livertransplant patients. Isolated extreme values of one of thecomponents should lead to caution in interpreting theresults. In case of discordance between a biopsy result darya test, it is recommended to seek the advice of aspecialist. The causes of these discordances could be due toa flaw of the test or to a flaw in the biopsy: i.e. a liverbiopsy has a 33% variability rate for one fibrosis stage.FibroTest is interpretable for chronic hepatitis B and C,alcoholic and non alcoholic steatosis. ActiTest isinterpretable for chronic hepatitis B and C.The performance characteristics have been determined by[facility]. Ithas not been cleared or approved by the U.S. Food and DrugAdministration. Performance characteristics refer to theanalytical performance of the test.[employer], the associated logo, [employer] and all associated [employer] are theregistered trademarks of [employer]. All third partymarks - (R) and (TM) - are the property of their respectiveowners. (C) 1424-3033 [employer]. Allrights reserved.THIS TEST WAS PERFORMED AT:[employer] [id number] [facility], [place] ??[id number] KC MD,PHD,JAC Blood Venous blood specimen / Unknown 11/27/2024 1:22 PM EST 11/27/2024 1:22 PM EST us Shanice Jones MD LAB BLOOD ORDERABLES Final Res ult [facility] [address] [place] [address] [phone] * (ABNORMAL) CBC auto differential (11/27/2024 1:22 PM EST) White Blood Count 8.6 4.8 - 10.8 X10*3/uL [facility] Red Blood Count 4.07(L) 4.20 - 5.50 X10*6/uL [facility] Hemoglobin 11.9(L) 12.0 - 16.0 g/dl [facility] Hematocrit 36.1(L) 37.0 - 47.0 % [facility] Mean Corpuscular Volume 88.7 80.0 - 98.0 fL [facility] Mean Corpuscular Hemoglobin 29.2 27.0 - 33.0 pg [facility] Mean Corpuscular HGB Conc 33.0 31.0 - 35.0 g/dl [facility] Red Cell Distribution Width 14.1 11.0 - 16.0 % [facility] Platelet Count 88(L) 160 - 400 X10*3/uL [facility] Mean Platelet Volume 10.8 9.4 - 12.3 fL [facility] Neutrophils Percent Auto 60.1 45 - 73 % [facility] Imm Gran Pct Auto 0.4 0.0 - 0.4 % [facility] Lymphocytes Percent Auto 30.5 20 - 40 % [facility] Monocytes Percent Auto 6.2 2 - 11 % [facility] Eosinophils Percent Auto 2.1 0 - 4 % [facility] Basophils Percent Auto 0.7 0 - 2 % [facility] NRBC Pct Auto 0.0 0.0 - 0.2 /100WBC [facility] Neutrophils Absolute Auto 5.1 2.0 - 8.3 x10*3/uL [facility] Imm Gran Abs Auto 0.03 0.00 - 0.03 X10*3/uL [facility] Lymphocytes Absolute Auto 2.6 1.2 - 4.9 X10*3/uL [facility] Monocytes Absolute Auto 0.5 0.1 - 1.2 X10*3/uL [facility] Eosinophils Absolute Auto 0.2 0.0 - 0.4 X10*3/uL [facility] Basophils Absolute Auto 0.1 0.0 - 0.2 X10*3/uL [facility] NRBC Abs Auto 0.000 0.0 - 0.012 X10*3/uL [facility] Blood Venous blood specimen / Unknown 11/27/2024 1:22 PM EST 11/27/2024 1:22 PM EST us Shanice Jones MD LAB BLOOD ORDERABLES Final Res ult Performing Organization Address City/State/[facility] Co de Phone Number [facility] [address] [place] [phone] * POCT HGB A1C (11/03/2024 11:39 AM EST) Hemoglobin A1C 6.0 4.0 - 6.0 % QC Media Lot # [id number] Lot# Expiration Date Blood 11/03/2024 11:3 9 AM EST us Shanice Jones MD POINT OF CARE TEST ENTER/EDIT ORDERABLES Final Result * POCT Glucose (11/03/2024 11:39 AM EST) Glucose Blood, POC 97 60 - 200 mg/dL QC Media Lot # [id number] Lot# Expiration Date ,025 Blood Capillary blood specimen / Unknown 11/03/2024 11:39 AM EST us Shanice Jones MD POINT OF CARE TEST ENTER/EDIT ORDERABLES Final Result * BI Mammogram Screening Tomosynthesis Bilateral (06/10/2024 3:25 PM EDT) Anatomical Region Laterality Modality Breast Bilateral Mammography 06/10/2024 3:25 PM EDT Narrative 06/17/2024 11:18 AM EDT ? [facility] [place] ? [address] ?[place], [place] [address] ? Mammography Report ? Signed ? Patient: Lindsey Wilson D ? MR#: [id number] ? : 1965 ?Acct:[id number] ? Age/Sex: 59 / F ?ADM Date: 06/10/24 ? Loc: HO.MAMMO ? Attending Dr: Shanice Jones MD ? Ordering Physician: Shanice Jones ?Results: 1Negative ? Date of Service: 06/10/24 ?Follow Up: 1 Year From Orig ?? inal Mammogram ? Procedure(s): MM tomosynthesis screening BI ?? Accession Number(s): [id number] ? cc: Shanice Jones ? EXAMINATION: ?? MM SCREENING DIGITAL BREAST TOMOSYNTHESIS, BILATERAL ? CLINICAL INFORMATION: ? Screening. Asymptomatic. ? COMPARISON: ?? Mammography: This study is compared with prior exams dating back to ?? 2019. ? TECHNIQUE: ?? Digital breast tomosynthesis is performed in both the craniocaudal and ?? mediolateral oblique views along with computer-aided detection (CAD). ?? Synthesized 2D images are generated from the tomosynthesis. ? FINDINGS: ?? The breasts are heterogeneously dense, which may obscure small masses ?? (ACR BI-RADS breast composition Category c). ? There are no significant masses, abnormal calcifications, or other ?? abnormalities. ? MM/MM tomosynthesis screening BI ?? IMPRESSION: ?? No mammographic evidence of malignancy. ? ASSESSMENT: ? BI-RADS BI-RADS 1 - Negative ? RECOMMENDATION: ?? Routine annual mammography screening. ? 1 year F/U ? This examination should not preclude the clinical evaluation of a ?? suspicious palpable abnormality. ? This patient's information was entered into a reminder system with a ?? target due date for their next mammogram. ? Dictated By: ?Monica Reagan MD ? Signed By: ?<Electronically signed by Monica Reagan MD in OV> ? 06/17/24 1114 ? DD/ 1525 ? TD/TT: ? Field Radio Technician: ? Procedure Note Bj Carr - 06/17/2024 [facility] [address] [place] [address] Mammography Report Signed Patient: Lindsey Wilson MR#: [id number] : 1965Acct:[id number] Age/Sex: 59 / FADM Date: 06/10/24 Loc: HO.MAMMO Attending Dr: Shanice Jones MD Ordering Physician: Felix Jonesults: 1Negative Date of Service: 06/10/24Follow Up: 1 Year From Orig inal Mammogram Procedure(s): MM tomosynthesis screening BI Accession Number(s): [id number] cc: Shanice Jones EXAMINATION: MM SCREENING DIGITAL BREAST TOMOSYNTHESIS, BILATERAL CLINICAL INFORMATION: Screening. Asymptomatic. COMPARISON: Mammography: This study is compared with prior exams dating back to 2019. TECHNIQUE: Digital breast tomosynthesis is performed in both the craniocaudal and mediolateral oblique views along with computer-aided detection (CAD). Synthesized 2D images are generated from the tomosynthesis. FINDINGS: The breasts are heterogeneously dense, which may obscure small masses (ACR BI-RADS breast composition Category c). There are no significant masses, abnormal calcifications, or other abnormalities. MM/MM tomosynthesis screening BI IMPRESSION: No mammographic evidence of malignancy. ASSESSMENT: BI-RADS BI-RADS 1 - Negative RECOMMENDATION: Routine annual mammography screening. 1 year F/U This examination should not preclude the clinical evaluation of a suspicious palpable abnormality. This patient's information was entered into a reminder system with a target due date for their next mammogram. Dictated By: Monica Reagan MD Signed By: <Electronically signed by Monica Reagan MD in OV> 06/17/24 1114 DD/ 1525 TD/TT: Field Radio Technician: Shanice Jones MD IMG BI PROCEDURES Final Result * Albumin, Random Urine W/Creatinine (06/05/2024 11:45 AM EDT) Creatinine, Urine 148.96 mg/dL [facility] Microalbumin Urine 12.0 mg/L [facility] Microalbum Creatinine Ratio Ur 8.0 <30 ug/mg cr [facility] Comment:Albumin/Creatinine R atio Reference Ranges: Normal: < 30 ug/mg creatinine Microalbuminuria: 30 - 300 ug/mg creatinineClinical Albuminuria: > 300 ug/mg creatinine Urine (Urine, Random) 06/05/2024 11:45 AM EDT 06/05/2024 12:51 PM EDT Shanice Jones MD LAB URINE ORDERABLES Final Res ult [facility] [address] [place] [phone] * Hepatitis C Antibody with Reflex to HCV, RNA, Quantitative, Real-Time PCR (06/05/2024 11:45 AM EDT) Hepatitis C Antibody Nonreactive Nonreactive [facility] Comment:Antibodies to HCV no t detected; does not exclude early acuteHCV infection. Blood Venous blood specimen / Unknown 06/05/2024 11:45 AM EDT 06/05/2024 1:04 PM EDT Gissel Machuca MD LAB BLOOD ORDERAB LES Final Result Performing Organization Address [facility]/ZIP Co de Phone Number [facility] [address] [place] [address] [phone] * HIV-1/2 Antigen and Antibodies, Fourth Generation, with Reflexes (06/05/2024 11:45 AM EDT) HIV AB/AG Nonreactive Nonreactive [facility] Comment:HIV-1 p24 Ag and/or HIV-1/HIV-2 Ab not detected.A test result that is nonreactive does not exclude thepossibility of exposure to or infection with HIV-1 and/orHIV-2. Nonreactive results in this assay for individualswith prior exposure to HIV-1 and/or HIV-2 may be due toantigen and antibody levels that are below the limit ofdetection of this assay.The SoFi HIV Ag/Ab Combo assay result andsupplemental assay results should be interpreted inconjunction with the patient's clinical presentation,history and other laboratory results. If the results areinconsistent with clinical evidence, additional testing issuggested to confirm the result. Blood Venous blood specimen / Unknown 06/05/2024 11:45 AM EDT 06/05/2024 1:04 PM EDT us Gissel Machuca MD LAB BLOOD ORDERAB LES Final Result Performing Organization Address City/[facility]/ZIP Co de Phone Number [facility] [address] [place] [phone] * (ABNORMAL) Lipid Panel, Standard (06/05/2024 11:45 AM EDT) Triglycerides 132 <150 mg/dL [facility] Comment:Desirable Triglyceri de: less than 150 mg/dLBorderline High Triglyceride 150-199 mg/dLHigh Triglyceride: 200-499 mg/dLVery High Triglyceride: greater than or equal to 5OO mg/dL Cholesterol 110 <200 mg/dL [facility] Comment:Desirable Cholestero l: less than 200 mg/dLBorderline High Cholesterol: 200-239 mg/dLHigh Cholesterol: greater than 239 mg/dL LDL Cholesterol Calculated 47 <100 mg/dL [facility] Comment:Desirable LDL: less than 100 mg/dLNear Optimal/Above Optimal LDL: 110- 129 mg/dLBorderline High LDL: 130-159 mg/dLHigh LDL: 160-189 mg/dLVery High LDL: greater than or equal to 190 mg/dL HDL Cholesterol 37(L) >40 mg/dL [facility] Comment:Desirable HDL: great er than 40 mg/dL Note: This HDL assay may give artificially low results in patients with liver disease. Blood Venous blood specimen / Unknown 06/05/2024 11:45 AM EDT 06/05/2024 1:04 PM EDT Shanice Jones MD LAB BLOOD ORDERABLES Final Res ult [facility] [address], [place] [phone] * PAP/HPV (10/24/2018) Pap Smear 1. NILM 1. NILM HPV Not Detected Undetected, Indeterminat e, Quantitative , Not Detected Historical Provider HEALTH MAINTENANCE Final Result * Colonoscopy (09/16/2014) Colonoscopy Normal Normal Narrative Idalmis Huber - 09/16/2014 Recommended 10 [place] [facility] Historical Provider HEALTH MAINTENANCE Final Result from Last 3 Months or Most Recently Relevant to Health Maintenance Insurance [facility] C3 Care Teams Print Traffic Manager Relationship Specialty Start Date End Date Shanice Jones MD [address] [place] [phone] PCP - General Family Medicine 12/22/20 Cary Alonzo Rheumatology NurseVocational Rehabilitation Supervisor 08/26/24
--- OUTSIDE RECORDS SUMMARY | 2025-01-20 11:48 | XMS_ITS | Encounter Summary ---
Author Organization [employer] Address [address] [facility] [place] [address] Care Team Providers Care Mental Health Program Manager Name Role Phone Shanice Jones MD Primary Care Provider [phone] Encounter Details Date Type Department Care Team (Late st Contact Info) Description 10/22/2024 Orders Only [place] [facility] [address], [place] [phone] ProviderMaurisio MD Social History Tobacco Use Types Packs/Day Years [...] Description 01/27/2025 2:00 PM EDT Procedure Visit [facility] [address] [place] [phone] Shanice Jones MD [address] [place] [phone] 03/26/2025 3:30 PM EDT Office Visit [facility] [address] [place] [address] [phone] Shanice Jones MD [address] [place] [phone] documented as of this encounter Procedures Procedure Name Priority Date/Time Associated Diagnosis Comments SURGICAL PATHOLOGY Routine 10/07/2024 8:25 AM EST documented in this encounter Results * Surgical Pathology (10/07/2024 8:25 AM EST) Historical Provider LAB PATHOLOGY ORDERABLES Final Result documented in this encounter Visit Diagnoses Not on filedocumented in this encounter Care Teams Mental Health Program Manager Relationship Specialty Start Date End Date Shanice Jones MD [address] [place] [address] [phone] PCP - General Family Medicine 12/22/20 Cary Alonzo Senior Audit ManagerOrgan Tuner Electronic 08/26/24 documented as of this encounter
--- OUTSIDE RECORDS SUMMARY | 2025-01-20 11:48 | XMS_ITS | Encounter Summary ---
Author Organization [employer] Address [address] [facility] [address] [place] [address] Care Team Providers Care Civil Service Worker Name Role Phone Shanice Jones MD Primary Care Provider [phone] Encounter Details Date Type Department Care Team (Late st Contact Info) Description 10/13/2024 Orders Only [place] [facility] [address] [place], [place] [phone] ProviderMaurisio MD Social History Tobacco Use Types [...] 01/27/2025 2:00 PM EDT Procedure Visit [facility] [address] [place] [phone] Shanice Jones MD [address] [place] [phone] 03/26/2025 3:30 PM EDT Office Visit [facility] [address] [place] [address] [phone] Shanice Jones MD [address] [place] [phone] documented as of this encounter Procedures Procedure Name Priority Date/Time Associated Diagnosis Comments SURGICAL PATHOLOGY Routine 10/07/2024 3:22 PM EST documented in this encounter Results * Surgical Pathology (10/07/2024 3:22 PM EST) Historical Provider LAB PATHOLOGY ORDERABLES Final Result documented in this encounter Visit Diagnoses Not on filedocumented in this encounter Care Teams Civil Service Worker Relationship Specialty Start Date End Date Shanice Jones MD [address] [place] [address] [phone] PCP - General Family Medicine 12/22/20 Cary Alonzo Efficiency Miner BlastingBookkeeping Service Sales Agent 08/26/24 documented as of this encounter
== END 2025-01-20 10:18 | disposition home or self-care (01) ==
LOC: HO.US 10:17
PROVIDERS: PCP General Practice; Visit Provider General Practice
DX: K76.0 Fatty (change of) liver, not elsewhere classified (principal)
CPT/HCPCS: 76700; 76981

== ENCOUNTER → 2025-01-20 10:19 | Outpatient (BNV) | payer MEDICAID, SELFPAY | PROVIDERS: PCP General Practice; Visit Provider Radiology Diagnostic Radiology | DX: R16.0 Hepatomegaly, not elsewhere classified (principal); K76.0 Fatty (change of) liver, not elsewhere classified | CPT/HCPCS: 76700 ==

== ENCOUNTER → 2025-02-02 13:56 | Outpatient (BNVA) | payer MEDICAID, SELFPAY | PROVIDERS: PCP General Practice; Visit Provider Hospitalist | DX: K21.9 Gastro-esophageal reflux disease without esophagitis (principal); G47.33 Obstructive sleep apnea (adult) (pediatric); G47.34 Idiopathic sleep related nonobstructive alveolar hypoventilation; J39.8 Other specified diseases of upper respiratory tract; R91.8 Other nonspecific abnormal finding of lung field; R06.09 Other forms of dyspnea | CPT/HCPCS: 99212 ==

== ENCOUNTER 2025-03-30 12:08 | Outpatient (REF) | payer MEDICAID, SELFPAY ==
--- NOTE | ~2025-03-30 | XR_ITS ---
EXAMINATION: XR HUMERUS LEFT HISTORY: pain after fall COMPARISON: There are no prior studies available for comparison. FINDINGS: AP and lateral views of the left humerus are submitted. Osseous mineralization is normal. There is no fracture or dislocation. The visualized shoulder and elbow joint spaces are preserved. The soft tissues are unremarkable. XR/XR humerus LT IMPRESSION: Unremarkable examination of the left humerus. Electronically signed by: Shekhar Cosme MD 03/30/2025 01:27 PM EDT
--- NOTE | ~2025-03-30 | XR_ITS ---
EXAMINATION: XR CERVICAL SPINE CLINICAL INFORMATION: PAIN COMPARISON: None available. TECHNIQUE: AP view cervical spine. Atlantoodontoid view. FINDINGS: Inadequate evaluation of the cervical spine. XR/XR cervical spine 3V IMPRESSION: Recommend lateral projection. Electronically signed by: Tomas Kathleen MD 03/30/2025 01:34 PM EDT
--- OUTSIDE RECORDS SUMMARY | 2025-03-30 13:14 | XMS_ITS | Encounter Summary ---
Author Organization [employer] Address [address] [place] [address] Care Team Providers Care Fleet Operations Manager Name Role Phone Shanice Jones MD Primary Care Provider [phone] Encounter Details Date Type Department Care Team (Late st Contact Info) Description 03/23/2025 Orders Only [facility] [address] [place], [place] [id number] ProviderMaurisio MD Social History Tobacco Use Types Packs/Day Years Used Date Smoking Tobacco: Never Passive Smoke Exposure: Never Smokeless Tobacco: Never Alcohol Use Standard Drinks/Week Comments Never 0 (1 standard drink = 0.6 oz pur e alcohol) Depression Answer Date Recorded Patient Health Questionnaire-9 Score 6 03/26/2025 Patient Health Questionnaire-9 Score 6 03/26/2025 Last PHQ-9: Questionnaire Data Not on file 0 03/26/2025 Housing Stability Answer Date Recorded What is [...] past 12 months, has t he electric, [employer], oil or water [employer] threatened to shut off services in your home? No 09/01/2023 Depression Answer Date Recorded Patient Health Questionnaire-2 Score 2 03/26/2025 Internet Access Answer Date Recorded Internet Access Q1 Yes 07/13/2024 Internet Access Q2 Not on file 07/13/2024 Comments Unknown Sex and Gender Information Value Date Recorded Sex Assigned at Female 09/10/2022 10:21 AM EDT Legal Sex Female 10:21 AM EDT Gender Identity Female 09/10/2022 10:21 AM EDT Sexual Orientation Choose not to disclose 2021 10:21 AM EDT documented as of this encounter Functional Status * Over the past 2 weeks, how often have you been bothered by any of the following problems? Question Answer Date of Assessment Author Patient Health Questionnaire -2 Score 2 03/26/2025 4:46 PM EDT Shanice Jones MD * Little interest or pleasure in doing things Answer Date of Assessment Author Several days 03/26/2025 4:46 PM ESET Shanice Jones MD * Feeling down, depressed, or hopeless Answer Date of Assessment Author Several days 03/26/2025 4:46 PM ESET Shanice Jones MD * Trouble falling or staying asleep, or sleeping too much Answer Date of Assessment Author Several days 03/26/2025 4:46 PM ESET Shanice Jones MD * Feeling tired or having little energy Answer Date of Assessment Author Several days 03/26/2025 4:46 PM Shanice Carrasco MD * Poor appetite or overeating Answer Date of Assessment Author Not at all 03/26/2025 4:46 PM Shanice Carrasco MD * Feeling bad about yourself - or that you are a failure or have let yourself or your family down Answer Date of Assessment Author Several days 03/26/2025 4:46 PM Shanice Carrasco MD * Trouble concentrating on things, such as reading the newspaper or watching television Answer Date of Assessment Author Not at all 03/26/2025 4:46 PM Shanice Carrasco MD * Moving or speaking so slowly that other people could have noticed? Or the opposite - being so fidgety or restless that you have been moving around a lot more than usual. Answer Date of Assessment Author Several days 03/26/2025 4:46 PM EDT Shanice Jones MD * Thoughts that you would be better off or hurting yourself in some way Answer Date of Assessment Author Not at all 03/26/2025 4:46 PM ESET Shanice Jones MD * Patient Health Questionnaire-9 Score Answer Date of Assessment Author 6 03/26/2025 4:46 PM EDT Shanice Joens MD * How difficult have these problems made it for you to do your work, take care of things at home, or get along with other people? Answer Date of Assessment Author Somewhat difficult 03/26/2025 4:46 PM ESET Shanice Davidson MD documented as of this encounter Plan of Treatment Not on file documented as of this encounter Procedures Procedure Name Priority Date/Time Associated Diagnosis Comments COLONOSCOPY Routine 10/07/2024 10:40 AM EST documented in this encounter Results * Hm Colonoscopy (10/07/2024 10:40 AM EST) Colonoscopy Normal Normal Narrative Idalmis Huber - 10/07/2024 10:40 AM EST Recommended 10 years ??. see results scanned in social media executive on 10/07/2024 us Historical Provider HEALTH MAINTENANCE Edited Result - Final documented in this encounter Visit Diagnoses Not on filedocumented in this encounter Care Teams Fleet Operations Manager Relationship Specialty Start Date End Date Shanice Jones MD [address] [place] [id number] PCP - General Family Medicine 12/22/20 Cary Alonzo Hand Gluer And SlicerNurse Emergency 08/26/24 [facility] 12/26/24 documented as of this encounter
--- OUTSIDE RECORDS SUMMARY | 2025-03-30 13:14 | XMS_ITS | Encounter Summary ---
Author Organization [employer] Address [address] [place] [address] Care Team Providers Care Record Systems Analyst Name Role Phone Shanice Jones MD Primary Care Provider [phone] Reason for Visit * Reason Comments Procedure Encounter Details Date Type Department Care Team (Latest Contact Info) Description 03/30/2025 9:00 AM EDT Procedure Visit [facility] [address], [place] [phone] Shanice Jones MD [address] [place], [place] [phone] Cervicalgia (Primary Dx) Social History Tobacco Use Types [...] Sign Reading Time Taken Comments Blood Pressure 134/87 03/30/2025 11:38 AM EDT Pulse 67 03/30/2025 11:38 AM EDT Temperature 36 ??C (96.8 ??F) 03/30/2025 11:38 AM EDT Respiratory Rate 20 03/30/2025 11:38 AM EDT Oxygen Saturation 99% 03/30/2025 11:38 AM EDT Inhaled Oxygen Concentration - - Weight 74.8 kg (165 lb) 03/30/2025 11:38 AM EDT Height 160 cm (5' 3 ) 03/30/2025 11:38 AM EDT Body Mass Index 29.23 03/30/2025 11:38 AM EDT documented in this encounter Plan of Treatment Scheduled Orders Name Type Priority Associated Diagnoses Orde r Schedule XR Cervical Spine 2-3 Views Imaging Routine Cervicalgia Expected: 03/30/2025, Expires: 03/30/2026 documented as of this encounter Visit Diagnoses Diagnosis Cervicalgia- Primary documented in this encounter Additional Health Concerns Assessment Noted Time PHQ-9 Depression Total Score: 6 03/26/20 25 4:46 PM EDT documented as of this encounter Care Teams Record Systems Analyst Relationship Specialty Start Date End Date Shanice Jones MD [address] [place] [id number] PCP - General Family Medicine 12/22/20 Cary Alonzo Stain WiperChief Of Party 08/26/24 [facility] 12/26/24 documented as of this encounter
--- OUTSIDE RECORDS SUMMARY | 2025-03-30 13:14 | XMS_ITS | Encounter Summary ---
Author Organization [employer] Address [address] [facility] [address] [place] [address] Care Team Providers Care Substance Abuse Services Director Name Role Phone Shanice Jones MD Primary Care Provider [phone] Reason for Visit * Reason Onset Date Comments No Show 03/30/2025 Encounter Details Date Type Department Care Team ([facility] st Contact Info) Description 03/30/2025 Telephone [facility] [address] [place], [place] [phone] Shanice Jones MD [address] [place] [address] No Show Social History Tobacco Use Types Packs/Day Years [...] encounter Miscellaneous Notes * Telephone Encounter - Anupama Alexis - 03/30/2025 10:19 AM EDT No show for FU documented in this encounter Plan of Treatment Not on file documented as of this encounter Visit Diagnoses Not on filedocumented in this encounter Additional Health Concerns Assessment Noted Time PHQ-9 Depression Total Score: 6 03/26/20 25 4:46 PM EDT documented as of this encounter Care Teams Substance Abuse Services Director Relationship Specialty Start Date End Date Shanice Jones MD [address] [place] [id number] PCP - General Family Medicine 12/22/20 Cary Alonzo Head ResidentAuto Seat Cover Installer 08/26/24 [facility] 12/26/24 documented as of this encounter
--- OUTSIDE RECORDS SUMMARY | 2025-03-30 13:14 | XMS_ITS | Clinical Summary ---
Author Organization [facility] Address [address] [place] [address] Care Team Providers Care Student Admissions Clerk Name Role Phone Unavailable Primary Care Provider [...] - 2023-2 5 season) 2024 Influenza Vaccine (Season Ended) 2025 RSV Immunization Adult Patie nts (1 - 1-dose 75+ series) 2040 HIB [...] age to complete this topic Meningococcal B Vaccine Aged Out No l onger eligible based on patient's age to complete [...]
--- OUTSIDE RECORDS SUMMARY | 2025-03-30 13:14 | XMS_ITS | Clinical Summary ---
Author Organization Unknown Care Team Providers Care Freelance Court Reporter Name Role Phone BRENDA FUCHS, ELDER Unavailable Unavailable KIERRA SANTAMARIA, JOAQUIM Unavailable Unavailable JEANNA THOMPSON, FELISHA Unavailable Unavailable Payers Payer Name Policy Type Policy Number Effective Date Expira tion Date MEDICAID [facility] [id number] Problems Condition Name Condition Details Condition Category Status Onset Date Resolution Date Last Treatment Date Treating Clinician Comments CERVICALGIA Active 01-21 00:00: 00 FIBROMYALGIA Active 01-21 00:00: 00 ANXIETY DISORDER, UNSPECIFIED Active 12-21 00:00: 00 DEPRESSION, UNSPECIFIED Active 12-21 00:00: 00 TYPE 2 DIABETES MELLITUS WITHOUT COMPLICATION S Active 12-21 00:00: 00 Allergies, Adverse Reactions, Alerts Allergy Name Allergy Type Status Severity Reaction(s) Onset Date Inactive Date Treating Clinician Comments EGGS Propensity to adverse reactions Active 12-26 21:48: 05 PENICILLIN Propensity to adverse reactions Active 12-26 21:47: 58 LATEX Propensity to adverse reactions Active 12-26 21:48: 13 Medications Ordered Medication Name Filled Medication Name Start Date Stop Date Current Medication? Ordering Clinician Indication Dosage Frequency Signature (SIG) Comments Components acetaminoph en 325 mg tablet 12-26 00:00: 00 Yes [id number] 975 mg EVERY 8 HOURS 975 mg EVERY 8 HOURS (route: oral) Med Classific ation: Analgesic , Anti-infl ammatory or Antipyret ic albuterol sulfate HFA 90 mcg/actuati on aerosol inhaler 12-26 00:00: 00 Yes [id number] 1 puff EVERY 4 HOURS 1 puff EVERY 4 HOURS (route: inhalation ) Med Classific ation: Respirato ry Therapy Agents azelastine 137 mcg (0.1 %) nasal spray 12-26 00:00: 00 Yes [id number] 1 spray DIRECTED 1 spray DIRECTED (route: nasal) Med Classific ation: Respirato ry Therapy Agents budesonide- formoterol HFA 160 mcg-4.8 mcg/actuati on aerosol inhaler 12-26 00:00: 00 Yes [id number] 2 puff 2 TIMES DAILY 2 puff 2 TIMES DAILY (route: inhalation ) Med Classific ation: Respirato ry Therapy Agents cholecalcif tonya (vitamin D3) 25 mcg (1,000 unit) tablet 12-26 00:00: 00 Yes [id number] 1 tablet EVERY AM 1 tablet EVERY AM (route: oral) Med Classific ation: Electroly te Balance-N utritiona l Products clonazepam 0.5 mg tablet 12-26 00:00: 00 Yes [id number] 1 tablet 2 TIMES DAILY 1 tablet 2 TIMES DAILY (route: oral) Med Classific ation: Central Nervous System Agents clopidogrel 75 mg tablet 12-26 00:00: 00 Yes [id number] 1 tablet DAILY 1 tablet DAILY (route: oral) Med Classific ation: Hematolog ical Agents diclofenac 1 % topical gel 12-26 00:00: 00 Yes [id number] Per instruc tions 2 TIMES DAILY Per instructio ns 2 TIMES DAILY (route: topical) Med Classific ation: Dermatolo gical docusate sodium 100 mg capsule 12-26 00:00: 00 Yes [id number] 2 capsule 2 TIMES DAILY 2 capsule 2 TIMES DAILY (route: oral) Med Classific ation: Gastroint estinal Therapy Agents escitalopra m 20 mg tablet 12-26 00:00: 00 Yes [id number] 2 tablet EVERY AM 2 tablet EVERY AM (route: oral) Med Classific ation: Central Nervous System Agents ferrous sulfate 325 mg (65 mg iron) tablet 12-26 00:00: 00 Yes [id number] 1 tablet DAILY 1 tablet DAILY (route: oral) Med Classific ation: Electroly te Balance-N utritiona l Products insulin aspart (U-100) 100 unit/mL (3 mL) subcutaneou s pen 12-26 00:00: 00 Yes [id number] Per instruc tions 3 TIMES DAILY Per instructio ns 3 TIMES DAILY (route: subcutaneo us) Med Classific ation: Endocrine insulin glargine (U-100) 100 unit/mL (3 mL) subcutaneou s pen 2-15 00:00: 00 Yes [id number] 25 unit BEDTIME 25 unit BEDTIME (route: subcutaneo us) Med Classific ation: Endocrine isosorbide mononitrate ER 30 mg tablet,exte nded release 24 hr 2-15 00:00: 00 Yes [id number] 1 tablet EVERY AM 1 tablet EVERY AM (route: oral) Med Classific ation: Cardiovas cular Therapy Agents lactulose 10 gram/15 mL (15 mL) oral solution -15 00:00: 00 Yes [id number] Per instruc tions 3 TIMES DAILY Per instructio ns 3 TIMES DAILY (route: oral) Med Classific ation: Gastroint estinal Therapy Agents levothyroxi ne 50 mcg tablet 2-15 00:00: 00 Yes [id number] 1 tablet DAILY 1 tablet DAILY (route: oral) Med Classific ation: Endocrine meclizine 12.5 mg tablet 2-15 00:00: 00 Yes [id number] 25 mg 3 TIMES DAILY 25 mg 3 TIMES DAILY (route: oral) Med Classific ation: Gastroint estinal Therapy Agents metformin 500 mg tablet 2-15 00:00: 00 Yes [id number] 2 tablet 2 TIMES DAILY 2 tablet 2 TIMES DAILY (route: oral) Med Classific ation: Endocrine omeprazole 20 mg delayed release,dis integrating tablet 2-15 00:00: 00 Yes [id number] 1 tablet DAILY 1 tablet DAILY (route: oral) Med Classific ation: Gastroint estinal Therapy Agents pregabalin 200 mg capsule 2-15 00:00: 00 Yes [id number] 1 capsule BEDTIME 1 capsule BEDTIME (route: oral) Med Classific ation: Central Nervous System Agents quetiapine 25 mg tablet 2-15 00:00: 00 Yes [id number] 1 tablet BEDTIME 1 tablet BEDTIME (route: oral) Med Classific ation: Central Nervous System Agents rosuvastati n 10 mg tablet 12-26 00:00: 00 Yes [id number] 1 tablet BEDTIME 1 tablet BEDTIME (route: oral) Med Classific ation: Cardiovas cular Therapy Agents Senna Lax 8.6 mg tablet 12-26 00:00: 00 Yes [id number] 1 tablet 2 TIMES DAILY 1 tablet 2 TIMES DAILY (route: oral) Med Classific ation: Gastroint estinal Therapy Agents sucralfate 1 gram tablet 12-26 00:00: 00 Yes [id number] 1 tablet EVERY 12 HOURS 1 tablet EVERY 12 HOURS (route: oral) Med Classific ation: Gastroint estinal Therapy Agents thiamine HCl (vitamin B1) 50 mg tablet 12-26 00:00: 00 Yes [id number] 1 tablet EVERY AM 1 tablet EVERY AM (route: oral) Med Classific ation: Electroly te Balance-N utritiona l Products Trulicity 4.5 mg/0.5 mL subcutaneou s pen injector 12-26 00:00: 00 Yes [id number] Per instruc tions WEEKLY Per instructio ns WEEKLY (route: subcutaneo us) Med Classific ation: Endocrine zolpidem 10 mg tablet 12-26 00:00: 00 Yes [id number] 1 tablet BEDTIME 1 tablet BEDTIME (route: oral) Med Classific ation: Central Nervous System Agents acetaminoph en 325 mg tablet 12-26 00:00: 00 Yes [id number] 975 mg EVERY 8 HOURS 975 mg EVERY 8 HOURS (route: oral) Med Classific ation: Analgesic , Anti-infl ammatory or Antipyret ic albuterol sulfate HFA 90 mcg/actuati on aerosol inhaler 12-26 00:00: 00 Yes [id number] 1 puff EVERY 4 HOURS 1 puff EVERY 4 HOURS (route: inhalation ) Med Classific ation: Respirato ry Therapy Agents azelastine 137 mcg (0.1 %) nasal spray 12-26 00:00: 00 Yes [id number] 1 spray DIRECTED 1 spray DIRECTED (route: nasal) Med Classific ation: Respirato ry Therapy Agents budesonide- formoterol HFA 160 mcg-4.8 mcg/actuati on aerosol inhaler 2-15 00:00: 00 Yes [id number] 2 puff 2 TIMES DAILY 2 puff 2 TIMES DAILY (route: inhalation ) Med Classific ation: Respirato ry Therapy Agents cholecalcif tonya (vitamin D3) 25 mcg (1,000 unit) tablet 2- 00:00: 00 Yes [id number] 1 tablet EVERY AM 1 tablet EVERY AM (route: oral) Med Classific ation: Electroly te Balance-N utritiona l Products clonazepam 0.5 mg tablet - 00:00: 00 Yes [id number] 1 tablet 2 TIMES DAILY 1 tablet 2 TIMES DAILY (route: oral) Med Classific ation: Central Nervous System Agents clopidogrel 75 mg tablet - 00:00: 00 Yes [id number] 1 tablet DAILY 1 tablet DAILY (route: oral) Med Classific ation: Hematolog ical Agents diclofenac 1 % topical gel - 00:00: 00 Yes [id number] Per instruc tions 2 TIMES DAILY Per instructio ns 2 TIMES DAILY (route: topical) Med Classific ation: Dermatolo gical docusate sodium 100 mg capsule - 00:00: 00 Yes [id number] 2 capsule 2 TIMES DAILY 2 capsule 2 TIMES DAILY (route: oral) Med Classific ation: Gastroint estinal Therapy Agents escitalopra m 20 mg tablet - 00:00: 00 Yes [id number] 2 tablet EVERY AM 2 tablet EVERY AM (route: oral) Med Classific ation: Central Nervous System Agents ferrous sulfate 325 mg (65 mg iron) tablet - 00:00: 00 Yes [id number] 1 tablet DAILY 1 tablet DAILY (route: oral) Med Classific ation: Electroly te Balance-N utritiona l Products insulin aspart (U-100) 100 unit/mL (3 mL) subcutaneou s pen -15 00:00: 00 Yes [id number] Per instruc tions 3 TIMES DAILY Per instructio ns 3 TIMES DAILY (route: subcutaneo us) Med Classific ation: Endocrine insulin glargine (U-100) 100 unit/mL (3 mL) subcutaneou s pen 2-15 00:00: 00 Yes [id number] 25 unit BEDTIME 25 unit BEDTIME (route: subcutaneo us) Med Classific ation: Endocrine isosorbide mononitrate ER 30 mg tablet,exte nded release 24 hr 2-15 00:00: 00 Yes [id number] 1 tablet EVERY AM 1 tablet EVERY AM (route: oral) Med Classific ation: Cardiovas cular Therapy Agents lactulose 10 gram/15 mL (15 mL) oral solution -15 00:00: 00 Yes [id number] Per instruc tions 3 TIMES DAILY Per instructio ns 3 TIMES DAILY (route: oral) Med Classific ation: Gastroint estinal Therapy Agents levothyroxi ne 50 mcg tablet 2-15 00:00: 00 Yes [id number] 1 tablet DAILY 1 tablet DAILY (route: oral) Med Classific ation: Endocrine meclizine 12.5 mg tablet 2-15 00:00: 00 Yes [id number] 25 mg 3 TIMES DAILY 25 mg 3 TIMES DAILY (route: oral) Med Classific ation: Gastroint estinal Therapy Agents metformin 500 mg tablet 2-15 00:00: 00 Yes [id number] 2 tablet 2 TIMES DAILY 2 tablet 2 TIMES DAILY (route: oral) Med Classific ation: Endocrine omeprazole 20 mg delayed release,dis integrating tablet 2-15 00:00: 00 Yes [id number] 1 tablet DAILY 1 tablet DAILY (route: oral) Med Classific ation: Gastroint estinal Therapy Agents pregabalin 200 mg capsule 2-15 00:00: 00 Yes [id number] 1 capsule BEDTIME 1 capsule BEDTIME (route: oral) Med Classific ation: Central Nervous System Agents quetiapine 25 mg tablet 2-15 00:00: 00 Yes [id number] 1 tablet BEDTIME 1 tablet BEDTIME (route: oral) Med Classific ation: Central Nervous System Agents rosuvastati n 10 mg tablet 2-15 00:00: 00 Yes [id number] 1 tablet BEDTIME 1 tablet BEDTIME (route: oral) Med Classific ation: Cardiovas cular Therapy Agents Senna Lax 8.6 mg tablet 12-26 00:00: 00 Yes [id number] 1 tablet 2 TIMES DAILY 1 tablet 2 TIMES DAILY (route: oral) Med Classific ation: Gastroint estinal Therapy Agents sucralfate 1 gram tablet 12-26 00:00: 00 Yes [id number] 1 tablet EVERY 12 HOURS 1 tablet EVERY 12 HOURS (route: oral) Med Classific ation: Gastroint estinal Therapy Agents thiamine HCl (vitamin B1) 50 mg tablet 12-26 00:00: 00 Yes [id number] 1 tablet EVERY AM 1 tablet EVERY AM (route: oral) Med Classific ation: Electroly te Balance-N utritiona l Products Trulicity 4.5 mg/0.5 mL subcutaneou s pen injector 12-26 00:00: 00 Yes [id number] Per instruc tions WEEKLY Per instructio ns WEEKLY (route: subcutaneo ) Med Classific ation: Endocrine zolpidem 10 mg tablet 12-26 00:00: 00 Yes [id number] 1 tablet BEDTIME 1 tablet BEDTIME (route: oral) Med Classific ation: Central Nervous System Agents Vital Signs Vital Name Observation Time Observation Value Commen ts Temperature 2025-03-09 15:50:00.000 98.5 [degF] Temperature 2025-03-05 08:15:00.000 98.2 [degF] Pulse 2025-03-19 13:37:00.000 82 /min Pulse 2025-03-12 13:33:00.000 78 /min Pulse 2025-03-09 15:50:00.000 63 /min Pulse 2025-03-05 13:18:00.000 80 /min Pulse 2025-03-05 08:15:00.000 62 /min O2 Saturation (%) 2025-03-12 13:33:00.000 97 % O2 Saturation (%) 2025-03-09 15:50:00.000 98 % O2 Saturation (%) 2025-03-05 08:15:00.000 98 % O2 Saturation (%) 2025-02-26 13:50:00.000 95 % Respirations 2025-03-19 13:37:00.000 16 /min Respirations 2025-03-12 13:33:00.000 18 /min Respirations 2025-03-09 15:50:00.000 16 /min Respirations 2025-03-05 13:18:00.000 16 /min Respirations 2025-03-05 08:15:00.000 16 /min Systolic Blood Pressure 2025-03-19 13:37:00.000 146 mm [Hg] Systolic Blood Pressure 2025-03-12 13:33:00.000 116 mm [Hg] Systolic Blood Pressure 2025-03-09 15:50:00.000 98 mm[ Hg] Systolic Blood Pressure 2025-03-05 13:18:00.000 124 mm [Hg] Systolic Blood Pressure 2025-03-05 08:15:00.000 112 mm [Hg] Systolic Blood Pressure 2025-02-26 13:50:00.000 126 mm [Hg] Diastolic Blood Pressure 2025-03-19 13:37:00.000 84 mm [Hg] Diastolic Blood Pressure 2025-03-12 13:33:00.000 64 mm [Hg] Diastolic Blood Pressure 2025-03-09 15:50:00.000 60 mm [Hg] Diastolic Blood Pressure 2025-03-05 13:18:00.000 86 mm [Hg] Diastolic Blood Pressure 2025-03-05 08:15:00.000 76 mm [Hg] Diastolic Blood Pressure 2025-02-26 13:50:00.000 74 mm [Hg] Plan of Treatment Planned Activity [...] HEALTH.] Future Scheduled Test SKILLED NU RSE TO O/A OF PATIENTS MENTAL/BEHAVIORAL STATUS, ASSESS VITAL SIGNS WEEKLY. ALLOW 2 PRNS FOR MEDICATION MANAGEMENT. [code = SKILLED NURSE TO O/A OF PATIENTS MENTAL/BEHAVIORAL STATUS, ASSESS VITAL SIGNS WEEKLY. ALLOW 2 PRNS FOR MEDICATION MANAGEMENT.] Future Scheduled Test SKILLED NU RSE FOR O/A OF GENERAL HEALTH STATUS OF PAIN, CARDIAC, RESPIRATORY, GASTROINTESTINAL, GENITOURINARY, SKIN, NEUROLOGIC, ENDOCRINE SYSTEMS TO IDENTIFY CHANGES ASSOCIATED WITH EXACERBATION FOR EARLY INTERVENTION OF COMPLICATIONS WEEKLY. [code = SKILLED NURSE FOR O/A OF GENERAL HEALTH STATUS OF PAIN, CARDIAC, RESPIRATORY, GASTROINTESTINAL, GENITOURINARY, SKIN, NEUROLOGIC, ENDOCRINE SYSTEMS TO IDENTIFY CHANGES ASSOCIATED WITH EXACERBATION FOR EARLY INTERVENTION OF COMPLICATIONS WEEKLY.] Future Scheduled Test SKILLED NU RSE FOR O/A AND SKILLED TEACHING OF COPING SKILLS TO MANAGE ANXIETY AND MAINTAIN SAFETY. [code = SKILLED NURSE FOR O/A AND SKILLED TEACHING OF COPING SKILLS TO MANAGE ANXIETY AND MAINTAIN SAFETY.] Future Scheduled Test SKILLED NU RSE FOR [...] NU RSE FOR O/A AND TEACHING OF DIABETIC MANAGEMENT INCLUDING BLOOD SUGAR MONITORING/USE OF GLUCOMETER, DIABETIC DIET, LOWER EXTREMITY SKIN INSPECTION, PROPER SKIN/FOOT CARE, AND SIGNS AND SYMPTOMS HYPO/HYPERGLYCEMIA TO REPORT. [code = SKILLED NURSE FOR O/A AND TEACHING OF DIABETIC MANAGEMENT INCLUDING BLOOD SUGAR MONITORING/USE OF GLUCOMETER, DIABETIC DIET, LOWER EXTREMITY SKIN INSPECTION, PROPER SKIN/FOOT CARE, AND SIGNS AND SYMPTOMS HYPO/HYPERGLYCEMIA TO REPORT.] Future Scheduled Test SKILLED NU RSE TO PERFORM AND RECORD BLOOD SUGAR READING EACH VISIT , AND PRN FOR SIGNS AND SYMPTOMS OF HYPO/HYPERGLYCEMIA. [code = SKILLED NURSE TO PERFORM AND RECORD BLOOD SUGAR READING EACH VISIT , AND PRN FOR SIGNS AND SYMPTOMS OF HYPO/HYPERGLYCEMIA.] Future Scheduled Test SKILLED NU RSE TO PERFORM HOME SAFETY AND FALL ASSESSMENT AND PROVIDE INSTRUCTION TO IMPLEMENT HOME SAFETY AND FALL PREVENTION STRATEGIES. [code = SKILLED NURSE TO PERFORM HOME SAFETY AND FALL ASSESSMENT AND PROVIDE INSTRUCTION TO IMPLEMENT HOME SAFETY AND FALL PREVENTION STRATEGIES.] Future Scheduled Test SKILLED NU RSE FOR OBSERVATION AND ASSESSMENT OF PATIENTS PAIN LEVEL AND EFFECTIVENESS OF PAIN MANAGEMENT REGIMEN. SKILLED NURSE TO INSTRUCT PATIENT/CAREGIVER REGARDING PHARMACOLOGIC AND NON-PHARMACOLOGIC PAIN CONTROL MEASURES. SKILLED NURSE TO REPORT TO PHYSICIAN IF PAIN IS UNCONTROLLED WITH CURRENT PAIN MANAGEMENT REGIMEN. [code = SKILLED NURSE FOR OBSERVATION AND ASSESSMENT OF PATIENTS PAIN LEVEL AND EFFECTIVENESS OF PAIN MANAGEMENT REGIMEN. SKILLED NURSE TO INSTRUCT PATIENT/CAREGIVER REGARDING PHARMACOLOGIC AND NON-PHARMACOLOGIC PAIN CONTROL MEASURES. SKILLED NURSE TO REPORT TO PHYSICIAN IF PAIN IS UNCONTROLLED WITH CURRENT PAIN MANAGEMENT REGIMEN.] Future Scheduled Test SKILLED NU RSE FOR O/A OF RESPIRATORY SYSTEM TO IDENTIFY CHANGES ASSOCIATED WITH EXACERBATION AND TO PROVIDE SKILLED TEACHING ON MANAGEMENT OF RESPIRATORY DISEASE PROCESS. [code = SKILLED NURSE FOR O/A OF RESPIRATORY SYSTEM TO IDENTIFY CHANGES ASSOCIATED WITH EXACERBATION AND TO PROVIDE SKILLED TEACHING ON MANAGEMENT OF RESPIRATORY DISEASE PROCESS.] Future Scheduled Test PHYSICAL T HERAPIST TO EVALUATE PATIENT FOR GAIT STABILITY ENDURANCE. [code = PHYSICAL THERAPIST TO EVALUATE PATIENT FOR GAIT STABILITY ENDURANCE.] Future Scheduled Test PATIENT URRUTIA S A RISK OF HOSPITALIZATION AND ED USE. SKILLED NURSE TO ESTABLISH SUPPORT MEASURES TO MINIMIZE RISK OF HOSPITALIZATION AND ED USE, AND INSTRUCT PATIENT/CAREGIVER ON METHODS TO REDUCE AVOIDABLE HOSPITALIZATION AND ED USE. [code = PATIENT HAS A RISK OF HOSPITALIZATION AND ED USE. SKILLED NURSE TO ESTABLISH SUPPORT MEASURES TO MINIMIZE RISK OF HOSPITALIZATION AND ED USE, AND INSTRUCT PATIENT/CAREGIVER ON METHODS TO REDUCE AVOIDABLE HOSPITALIZATION AND ED USE.] Future Scheduled Test SKILLED NU RSE TO REVIEW PATIENT MEDICATIONS. INSTRUCT PATIENT/CAREGIVER ON MONITORING OF EFFECTIVENESS, ADVERSE DRUG REACTIONS, SIDE EFFECTS OF ALL MEDICATIONS (PRESCRIPTION/-OTC), AND HOW AND WHEN TO REPORT PROBLEMS. [code = SKILLED NURSE TO REVIEW PATIENT MEDICATIONS. INSTRUCT PATIENT/CAREGIVER ON MONITORING OF EFFECTIVENESS, ADVERSE DRUG REACTIONS, SIDE EFFECTS OF ALL MEDICATIONS (PRESCRIPTION/-OTC), AND HOW AND WHEN TO REPORT PROBLEMS. ] Future Scheduled Test SKILLED NU RSE TO [...] AND PSYCHOSOCIAL SUPPORT SERVICES.] Future Scheduled Test SKILLED NU RSE WILL MAINTAIN SITUATIONAL AWARENESS FOR SAFETY AND WILL NOTIFY CLINICAL AUDIOLOGY DIRECTOR AND PHYSICIAN/PROVIDER WITH ANY CHANGE IN CONDITION. [code = SKILLED NURSE WILL MAINTAIN SITUATIONAL AWARENESS FOR SAFETY AND WILL NOTIFY CLINICAL AUDIOLOGY DIRECTOR AND PHYSICIAN/PROVIDER WITH ANY CHANGE IN CONDITION.] Future Scheduled Test OXYGEN VIA NASAL CANULA AT 2 LITERS CONTINUESWHILE ASLEEP. SKILLED NURSE FOR O/A AND SKILLED TEACHING OF SAFE OXYGEN USE IN THE HOME. [code = OXYGEN VIA NASAL CANULA AT 2 LITERS CONTINUESWHILE ASLEEP. SKILLED NURSE FOR O/A AND SKILLED TEACHING OF SAFE OXYGEN USE IN THE HOME.] Future Scheduled Test PHYSICAL T HERAPIST TO EVALUATE PATIENT SECONDARY TO FUNCTIONAL DEFICITS/SAFETY CONCERNS. PHYSICAL THERAPIST TO ASSESS BEST PRACTICE INTERVENTIONS TO ASSIST PATIENTS TO IMPROVE OR STABILIZE MEDICAL STATUS AND PREVENT RE-HOSPITALIZATION. MEASURES INCLUDING REVIEW AND IDENTIFICATION OF CONCERNS FOR THE FOLLOWING AREAS: DEPRESSION, DRUG REGIMEN, DIABETIC FOOT CARE, ENVIRONMENTAL SAFETY ISSUES AND FALLS, PAIN, AND DISEASE MANAGEMENT PHYSICAL THERAPY TO ESTABLISH /UPGRADE/DOWNGRADE THERAPEUTIC EXERCISE PROGRAM AND INSTRUCT PATIENT/CAREGIVER ON EXERCISE PRECAUTIONS WITH WRITTEN HOME PROGRAM. MAY INCLUDE PROM, AAROM, AROM, RROM APPROPRIATE TO IMPROVE FUNCTIONAL STRENGTH AND RANGE OF MOTION. PHYSICAL THERAPY TO INSTRUCT PATIENT/CAREGIVER ON BED MOBILITY TECHNIQUES TO IMPROVE PATIENT MOBILITY AND POSITIONING TECHNIQUES IN ORDER TO INCREASE PATIENTS COMFORT AND DECREASE RISK OF SKIN BREAKDOWN. PHYSICAL THERAPY TO INSTRUCT PATIENT/CAREGIVER ON SAFE TRANSFER TECHNIQUES USING PROPER BODY MECHANICS AND EQUIPMENT. PHYSICAL THERAPY TO INSTRUCT PATIENT/CAREGIVER ON GAIT TRAINING TECHNIQUES USING APPROPRIATE ASSISTIVE DEVICE, PROPER BODY MECHANICS TO IMPROVE MOBILITY, AND PREVENT INJURY OF PATIENT AND/OR CAREGIVER. PHYSICAL THERAPY TO ASSESS AND RECOMMEND HOME SAFETY ADAPTATIONS AND EDUCATE PATIENT /CAREGIVER ON FALL PREVENTION STRATEGIES. PHYSICAL THERAPY FOR OBSERVATION AND ASSESSMENT OF PAIN, EFFECTIVENESS OF PAIN MANAGEMENT REGIMEN AND SKILLED TEACHING RELATED TO PAIN MANAGEMENT. THERAPIST TO REPORT INCREASED PAIN LEVEL TO PHYSICIAN FOR PROMPT INTERVENTION. PHYSICAL THERAPY TO INSTRUCT PATIENT/CAREGIVER ON BALANCE AND BALANCE STRATEGIES TO IMPROVE SAFE MOBILITY AND REDUCE RISK FOR FALL AND INJURY SUMMARY OF THERAPY EVAL/ASSESSMENT FINDINGS AND REASON(S) SKILLS OF A THERAPIST ARE INDICATED: 02/23: PATIENT SEEN FOR RECERTIFICATION VISIT. PATIENT REPORTS THAT SHE SUSTAINED FALL ON 02/19, REPORTS THAT SHE DOES NOT REMEMBER EVENTS AND THAT SHE WAS SLEEPING AND ROLLED OUT OF BOTTOM OF BED AND HIT HEAD AGAINST WALL AND RIGHT ELBOW AGAINST FLOOR. SON WAS ABLE TO ASSIST PATIENT INTO STANDING AND PATIENT HAS GONE BACK TO BED. SHE REPORTS THAT SHE HAS HAD WORSENING HEADACHE SINCE SATURDAY AND ELBOW PAIN HAS NOT IMPROVED. PATIENT HAS BRUISING/ECCHYMOSIS TO RIGHT ELBOW WITH SWELLING IN DORSUM OF RIGHT HAND. CRANIAL NERVE EXAM INTACT AND UNREMARKABLE, VITALS UNREMARKABLE UPON ASSESSMENT, PATIENT REPORTS THAT BLOOD SUGARS HAVE BEEN CONTROLLED NO GREATER THAN 130 SINCE FALL. PATIENT UNABLE TO RECALL EVENTS AROUND FALL. PATIENT IS ALERT AND ORIENTED WITH NO TROUBLE BREATHING. GIVEN PRESENCE OF HEAD STRIKE, AMNESIA AROUND EVENT, AND PRESENCE OF BLOOD THINNERS IN PATIENT'S MEDICATION REGIMEN RECOMMENDED FOR PATIENT TO GO TO EMERGENCY ROOM FOR HEAD CT. [facility] CALLED AND PATIENT TRANSPORTED TO [facility], MD OFFICE NOTIFIED. PATIENT WILL REQUIRE ADDITIONAL HOME PT VISITS IN ORDER TO MAXIMIZE CURRENT LEVEL OF FUNCTION AND INDEPENDENCE WHENEVER SHE IS ABLE TO TRANSITION BACK HOME PARTICULARLY GIVEN NEW FALL SUSTAINED. 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 EDUCATED SON ON-CALL US FIRST POLICY, SURVEY, AND ON-CALL HOURS PHYSICAL THERAPY TO PROVIDE MANUAL THERAPY TECHNIQUES INCLUDING JOINT MOBILIZATIONS/MFR/SOFT TISSUE MOBILIZATION TO CERVICAL SPINE AND LEFT SHOULDER TO ASSIST WITH PAIN CONTROL AND/OR JOINT MOBILITY. THERAPIST TO REVIEW PATIENT MEDICATIONS (PRESCRIPTION/OTC). INSTRUCT PATIENT/CAREGIVER ON ALL MEDICATIONS INCLUDING PURPOSE, WHEN TO TAKE, IMPORTANCE OF MEDICATION ADHERENCE, MONITORING OF EFFECTIVENESS, ADVERSE DRUG EVENTS, POSSIBLE SIDE EFFECTS, AND WHEN TO NOTIFY AGENCY OR PHYSICIAN/PROVIDER OF ANY CONCERNS. THERAPIST TO PROVIDE FUNCTIONAL STRATEGIES/TECHNIQUES FOR MANAGING MEDICATIONS. [code = PHYSICAL THERAPIST TO EVALUATE PATIENT SECONDARY TO FUNCTIONAL DEFICITS/SAFETY CONCERNS. PHYSICAL THERAPIST TO ASSESS BEST PRACTICE INTERVENTIONS TO ASSIST PATIENTS TO IMPROVE OR STABILIZE MEDICAL STATUS AND PREVENT RE-HOSPITALIZATION. MEASURES INCLUDING REVIEW AND IDENTIFICATION OF CONCERNS FOR THE FOLLOWING AREAS: DEPRESSION, DRUG REGIMEN, DIABETIC FOOT CARE, ENVIRONMENTAL SAFETY ISSUES AND FALLS, PAIN, AND DISEASE MANAGEMENT PHYSICAL THERAPY TO ESTABLISH /UPGRADE/DOWNGRADE THERAPEUTIC EXERCISE PROGRAM AND INSTRUCT PATIENT/CAREGIVER ON EXERCISE PRECAUTIONS WITH WRITTEN HOME PROGRAM. MAY INCLUDE PROM, AAROM, AROM, RROM APPROPRIATE TO IMPROVE FUNCTIONAL STRENGTH AND RANGE OF MOTION. PHYSICAL THERAPY TO INSTRUCT PATIENT/CAREGIVER ON BED MOBILITY TECHNIQUES TO IMPROVE PATIENT MOBILITY AND POSITIONING TECHNIQUES IN ORDER TO INCREASE PATIENTS COMFORT AND DECREASE RISK OF SKIN BREAKDOWN. PHYSICAL THERAPY TO INSTRUCT PATIENT/CAREGIVER ON SAFE TRANSFER TECHNIQUES USING PROPER BODY MECHANICS AND EQUIPMENT. PHYSICAL THERAPY TO INSTRUCT PATIENT/CAREGIVER ON GAIT TRAINING TECHNIQUES USING APPROPRIATE ASSISTIVE DEVICE, PROPER BODY MECHANICS TO IMPROVE MOBILITY, AND PREVENT INJURY OF PATIENT AND/OR CAREGIVER. PHYSICAL THERAPY TO ASSESS AND RECOMMEND HOME SAFETY ADAPTATIONS AND EDUCATE PATIENT /CAREGIVER ON FALL PREVENTION STRATEGIES. PHYSICAL THERAPY FOR OBSERVATION AND ASSESSMENT OF PAIN, EFFECTIVENESS OF PAIN MANAGEMENT REGIMEN AND SKILLED TEACHING RELATED TO PAIN MANAGEMENT. THERAPIST TO REPORT INCREASED PAIN LEVEL TO PHYSICIAN FOR PROMPT INTERVENTION. PHYSICAL THERAPY TO INSTRUCT PATIENT/CAREGIVER ON BALANCE AND BALANCE STRATEGIES TO IMPROVE SAFE MOBILITY AND REDUCE RISK FOR FALL AND INJURY SUMMARY OF THERAPY EVAL/ASSESSMENT FINDINGS AND REASON(S) SKILLS OF A THERAPIST ARE INDICATED: 02/23: PATIENT SEEN FOR RECERTIFICATION VISIT. PATIENT REPORTS THAT SHE SUSTAINED FALL ON 02/19, REPORTS THAT SHE DOES NOT REMEMBER EVENTS AND THAT SHE WAS SLEEPING AND ROLLED OUT OF BOTTOM OF BED AND HIT HEAD AGAINST WALL AND RIGHT ELBOW AGAINST FLOOR. SON WAS ABLE TO ASSIST PATIENT INTO STANDING AND PATIENT HAS GONE BACK TO BED. SHE REPORTS THAT SHE HAS HAD WORSENING HEADACHE SINCE SATURDAY AND ELBOW PAIN HAS NOT IMPROVED. PATIENT HAS BRUISING/ECCHYMOSIS TO RIGHT ELBOW WITH SWELLING IN DORSUM OF RIGHT HAND. CRANIAL NERVE EXAM INTACT AND UNREMARKABLE, VITALS UNREMARKABLE UPON ASSESSMENT, PATIENT REPORTS THAT BLOOD SUGARS HAVE BEEN CONTROLLED NO GREATER THAN 130 SINCE FALL. PATIENT UNABLE TO RECALL EVENTS AROUND FALL. PATIENT IS ALERT AND ORIENTED WITH NO TROUBLE BREATHING. GIVEN PRESENCE OF HEAD STRIKE, AMNESIA AROUND EVENT, AND PRESENCE OF BLOOD THINNERS IN PATIENT'S MEDICATION REGIMEN RECOMMENDED FOR PATIENT TO GO TO EMERGENCY ROOM FOR HEAD [facility] CALLED AND PATIENT TRANSPORTED TO [facility], OFFICE NOTIFIED. PATIENT WILL REQUIRE ADDITIONAL HOME PT VISITS IN ORDER TO MAXIMIZE CURRENT LEVEL OF FUNCTION AND INDEPENDENCE WHENEVER SHE IS ABLE TO TRANSITION BACK HOME PARTICULARLY GIVEN NEW FALL SUSTAINED. 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 EDUCATED SON ON-CALL US FIRST POLICY, SURVEY, AND ON-CALL HOURS PHYSICAL THERAPY TO PROVIDE MANUAL THERAPY TECHNIQUES INCLUDING JOINT MOBILIZATIONS/MFR/SOFT TISSUE MOBILIZATION TO CERVICAL SPINE AND LEFT SHOULDER TO ASSIST WITH PAIN CONTROL AND/OR JOINT MOBILITY. THERAPIST TO REVIEW PATIENT MEDICATIONS (PRESCRIPTION/OTC). INSTRUCT PATIENT/CAREGIVER ON ALL MEDICATIONS INCLUDING PURPOSE, WHEN TO TAKE, IMPORTANCE OF MEDICATION ADHERENCE, MONITORING OF EFFECTIVENESS, ADVERSE DRUG EVENTS, POSSIBLE SIDE EFFECTS, AND WHEN TO NOTIFY AGENCY OR PHYSICIAN/PROVIDER OF ANY CONCERNS. THERAPIST TO PROVIDE FUNCTIONAL STRATEGIES/TECHNIQUES FOR MANAGING MEDICATIONS.] Goal Patient Goal - TO REDUCE MICHAEL N Goal 2025-02-19 Patient Goal - TO REDUCE MICHAEL N Goal Provider Goal - A PLAN OF CARE WILL BE ESTABLISHED THAT MEETS PATIENT'S USP NEEDS AND INCLUDES PATIENT GOAL FOR HOME HEALTH. Goal Provider Goal - ALTERED MENTAL/BEHAVIORAL STATUS WILL BE IDENTIFIED PROMPTLY AND INTERVENTION INITIATED QUICKLY TO MINIMIZE ASSOCIATED RISKS THROUGHOUT CERTIFICATION PERIOD. Goal Provider Goal - CHANGE [...] Goal Provider Goal - PATIENT/CAREGIVER WILL VERBALIZE/DEMONSTRATE KNOWLEDGE OF DIABETIC MANAGEMENT. CHANGES IN DIABETIC STATUS WILL BE IDENTIFIED AND REPORTED TO PHYSICIAN FOR PROMPT INTERVENTION THROUGHOUT THE CERTIFICATION PERIOD. Goal Provider Goal - BLOOD SUGAR READING WILL BE OBTAINED ORDERED THROUGHOUT CERTIFICATION PERIOD. Goal Provider Goal - PATIENT/CAREGIVER WILL VERBALIZE/DEMONSTRATE EFFECTIVE HOME SAFETY AND FALL PREVENTION STRATEGIES THROUGHOUT CERTIFICATION PERIOD. Goal Provider Goal - PATIENT/CAREGIVER WILL DEMONSTRATE UNDERSTANDING OF PHARMACOLOGIC AND NONPHARMACOLOGIC PAIN CONTROL MEASURES AND PATIENT WILL HAVE IMPROVEMENT IN PAIN INTERFERING WITH ACTIVITY EVIDENCED BY PAIN CONTROLLED AT LEVEL OF 5 OR LESS BY END OF CERTIFICATION PERIOD. Goal Provider Goal - PATIENT/CAREGIVER WILL VERBALIZE/DEMONSTRATE MANAGEMENT OF RESPIRATORY DISEASE PROCESS. CHANGES IN RESPIRATORY STATUS WILL BE IDENTIFIED AND REPORTED TO PHYSICIAN FOR PROMPT INTERVENTION THROUGHOUT THE CERTIFICATION PERIOD. Goal Provider Goal - A PHYSICAL THERAPY EVALUATION TO BE COMPLETED WITH RECOMMENDATIONS AND/OR WRITTEN PLAN OF TREATMENT ESTABLISHED FOR PHYSICIANS SIGNATURE. Goal Provider Goal - PATIENT WILL HAVE SUPPORT MEASURES ESTABLISHED TO PREVENT HOSPITALIZATION AND ED USE AND PATIENT/CAREGIVER WILL VERBALIZE/DEMONSTRATE METHODS TO REDUCE AVOIDABLE HOSPITALIZATION AND ED USE BY END OF EPISODE. Goal Provider Goal - PATIENT/CAREGIVER WILL VERBALIZE UNDERSTANDING OF EDUCATION PROVIDED ON MEDICATIONS BY THE END OF THE CERTIFICATION PERIOD. Goal Provider Goal - PSYCHOSOCIAL [...] THROUGHOUT THE EPISODE. Goal Provider Goal - PHYSICAL THERAPY EVALUATION TO BE COMPLETED WITH RECOMMENDATIONS AND/OR WRITTEN TREATMENT PLAN OF CARE ESTABLISHED FOR THE PHYSICIANS SIGNATURE PATIENT/CAREGIVER VERBALIZES UNDERSTANDING OF THE INITIAL BEST PRACTICE RECOMMENDATIONS. PHYSICIAN TO BE NOTIFIED APPROPRIATE FOR ANY CHANGES OR COMPLICATIONS THROUGHOUT THE CERTIFICATION PERIOD. PATIENT/CAREGIVER WILL PERFORM THERAPEUTIC EXERCISE/S AND DEMONSTRATE PARTICIPATION IN A HOME PROGRAM. PATIENT/CAREGIVER WILL DEMONSTRATE IMPROVED BED MOBILITY TECHNIQUES. PATIENT/CAREGIVER WILL DEMONSTRATE SAFE TRANSFERS USING APPROPRIATE ASSISTIVE DEVICE, BODY MECHANICS AND EQUIPMENT. PATIENT/CAREGIVER WILL DEMONSTRATE IMPROVED GAIT TECHNIQUES TO MINIMIZE RISK OF INJURY. PATIENT/CAREGIVER WILL DEMONSTRATE/VERBALIZE UNDERSTANDING OF RECOMMENDATIONS TO INCREASE SAFETY IN THE HOME AND FALL PREVENTION. INCREASED PAIN OR INEFFECTIVE PAIN CONTROL MEASURES WILL BE IDENTIFIED AND PROMPTLY REPORTED TO THE PHYSICIAN. PATIENT/CAREGIVER WILL DEMONSTRATE EFFECTIVE PAIN MANAGEMENT. PATIENT/CAREGIVER WILL DEMONSTRATE IMPROVED BALANCE AND REDUCE THE RISK OF FALLS AND INJURY. PHYSICAL THERAPIST WILL PERFORM MANUAL THERAPY TECHNIQUES. PATIENT/CAREGIVER WILL VERBALIZE/DEMONSTRATE UNDERSTANDING OF MEDICATIONS AND STRATEGIES/TECHNIQUES FOR MEDICATION MANAGEMENT BY THE END OF THE CERTIFICATION PERIOD. Encounters Start Date/Time End Date/Time Encounter Type Admission Type Attending [facility] Department Encounter ID Discharge Date Discharge Status Discharge Condition Discharge Reason Percent Goals Met 2025-02-24 00:00:00 2025-04-24 00:00:00 Outpatient RECERTIFIC ATION JOAQUIM LOZADA [facility] [id number] 2.17
--- OUTSIDE RECORDS SUMMARY | 2025-03-30 13:14 | XMS_ITS | Encounter Summary ---
Author Organization [employer] Address [address] [place] [address] Care Team Providers Care Jewel Cupping Machine Operator Name Role Phone Shanice Jones MD Primary Care Provider Encounter Details Date Type Department Care Team (Late st Contact Info) Description 10/22/2024 Orders Only [facility] [address] [place] [address] ProviderMaurisio MD Social History Tobacco Use Types [...] on filedocumented in this encounter Care Teams Jewel Cupping Machine Operator Relationship Specialty Start Date End Date Shanice Jones MD [address] [place] [id number] PCP - General Family Medicine 12/22/20 Cary Alonzo Mitten [employer] Installation Helper 08/26/24 Himanshu Hayes 12/26/24 documented as of this encounter
--- OUTSIDE RECORDS SUMMARY | 2025-03-30 13:14 | XMS_ITS | Clinical Summary ---
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 022 Active zolpidem (Ambien) 10 MG tablet Take 10 mg by mouth if needed at bedtime. Active isosorbide mononitrate ER (Imdur) 30 MG 24 hr tablet Take 30 mg by mouth in the morning. Active rosuvastatin (Crestor) 10 MG tablet Take [...] mg Oral2 times daily, Reported on 01/04/2025 triamcinolone (Kenalog) 0.1 % cream Apply topically if needed in the morning and at bedtime (pain and swelling). 30 g 2 024 Active thiamine (Vitamin B-1) 50 MG tablet TAKE 1 TABLET BY MOUTH EVERY MORNING 90 tablet 3 024 Active pantoprazole (ProtoNix) 40 MG EC tablet TAKE 1 TABLET BY MOUTH TWICE DAILY IN THE MORNING AND IN THE EVENING 180 tablet 3 024 Active fremanezumab (Ajovy) 225 MG/1.5ML auto-injector Inject 675 mg under the skin every 3 (three) months. 024 Active sucralfate (Carafate) 1 g tablet TAKE 1 TABLET BY MOUTH EVERY TWELVE HOURS NEEDED HEARTBURN 60 tablet 3 Active Easy Touch Pen [place] 31G X 6 MM miscIndication s:Type 2 diabetes mellitus treated with insulin (CMS/[facility]) USE FOUR TIMES DAILY DIRECTED 100 each 11 Active acetaminophen (Tylenol) 325 MG tablet Take 3 tablets by mouth every 8 (eight) hours if needed. Active ProAir RespiClick 108 (90 Base) MCG/ACT aerosol powder INHALE 2 PUFFS BY MOUTH EVERY 6 HOURS NEEDED FOR SHORTNESS OF BREATH OR FOR WHEEZING Active Trulicity 4.5 MG/0.5ML solution auto-injector INJECT ONE PEN (= 4.5MG) SUBCUTANEOUSLY ONCE A WEEK DIRECTED Active metFORMIN (Glucophage) 500 MG tablet TAKE 2 TABLETS BY MOUTH TWICE DAILY IN THE MORNING AND EVENING 360 tablet 3 Active cholecalcifero l (Vitamin D-3) 25 MCG tabletIndicati ons:Vitamin D deficiency TAKE 1 TABLET BY MOUTH EVERY MORNING 90 tablet 3 Active QUEtiapine (SEROquel) 25 MG tablet TAKE 1 TABLET BY MOUTH AT BEDTIME NEEDED FOR SLEEP 30 tablet 1 Active pregabalin (Lyrica) 200 MG capsule Take 1 capsule (200 mg) by mouth Once per day. 90 capsule 3 Active senna (Senokot) 8.6 MG tablet TAKE 1 TABLET BY MOUTH TWICE DAILY IN THE MORNING AND AT BEDTIME NEEDED FOR CONSTIPATION 180 tablet 1 Active Ferrous Sulfate (iron) 325 (65 Fe) MG tablet TAKE 1 TABLET BY MOUTH EVERY MORNING 90 tablet 1 Active levothyroxine (Synthroid, Levoxyl) 50 MCG tablet TAKE 1 TABLET BY MOUTH EVERY MORNING 30-60 MINUTES BEFORE MEALS OR FOOD 90 tablet 3 Active cyclobenzaprin e (Flexeril) 5 MG tablet TAKE 1 TABLET BY MOUTH THREE TIMES DAILY NEEDED FOR MUSCLE SPASMS FOR 10 DAYS Active docusate sodium (Colace) 100 MG capsule Take 1 capsule (100 mg) by mouth Once per day. 90 capsule 3 025 2025 Active polyethylene glycol, PEG, 3350 (MiraLax) 17 GM/SCOOP powder Take 17 g by mouth Once per day. 527 g 2 2024 Active lidocaine (Xylocaine) 5 % ointment Apply topically if needed in the morning, at noon, and at bedtime (neck pain). 30 g 3 025 2025 Active levothyroxine (Synthroid, Levoxyl) 50 MCG tablet TAKE 1 TABLET BY MOUTH EVERY MORNING 30-60 MINUTES BEFORE MEALS OR FOOD 90 tablet 3 024 2024 Discontinued Bisacodyl EC 5 MG EC tablet TAKE 4 TABLETS BY MOUTH ONCE DAILY DIRECTED 024 2024 Discontinued(T herapy completed) Ferrous Sulfate (iron) 325 (65 Fe) MG tablet TAKE 1 TABLET BY MOUTH EVERY MORNING 90 tablet 025 2024 Discontinued Active Problems Problem Noted Date Diagnosed Date Fibromyalgia 01/21/2025 Cervicalgia 01/21/2025 Assessment & Plan (03/29/2025 8:55 AM EDT): Booked Friday 03/30 at 9am for trigger point injections Type 2 diabetes mellitus wit h other [...] 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 Will extend PT-1 to her other providers Depression, unspecified 12/21/2024 Anxiety disorder 12/21/2024 Portal hypertensive gastropathy (CMS/HCC) 2023 Fatty liver [...] artery provides dominant supply to the right ELECTRICIAN CONSTRUCTOR SUPERVISOR.Nondominant right vertebral artery is diminutive throughout, not [...] Pt has had difficult maintaining appointments at [facility] Dr Song, would like to come close to where she lives at [facility] Exercise counseling 02/13/2023 Left ankle sprain 11/20/2022 Assessment & Plan (02/13/2023 3:37 PM EDT): Continue followup with ortho and PT at [facility] Did gait training at PT as she says it is difficult to walk, even with a walker and complains of frequent falls Awaiting sabrina , which translates from Italian to braces Assessment & Plan (11/20/2022 10:28 AM EST): Continue followup with ortho and PT at [facility] Request gait training at PT as she says it is difficult to walk, even with a walker and complains of frequent falls Malignant neoplasm of endometrium 11/19/2022 Assessment & Plan (09/04/2024 12:53 PM EDT): No AUB currently Assessment & Plan (11/20/2022 10:25 AM EST): She is worried about reoccurance of neoplasm Will check CBC Ensure followup with hay baler onc No vaginal bleeding currently Ptosis of [...] 10/18/2021 Overview (11/05/2024): Per lexie Mckeon at [facility]: Fair control hemoglobin A1c 7.2% but [...] weekly -called px 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 apt 05/28/[address] Potts -PCP apt 05/29/2024 Assessment & Plan (01/20/2024 12:53 PM EDT): Followed by [facility] endocrinology Assessment & Plan (11/20/2022 10:27 AM EST): Followed by [facility] endocrinology Gastroparesis 07/18/2021 Assessment & Plan (11/20/2022 10:26 AM EST): On Azithromycin three times weekly for prokinetic agent Tolerating this better than Reglan Saw [facility] for gastric pacemaker consult once [...] AM EST): GERD diet Son will call [facility] to ask about whether there is a reason to continue ASA and Plavix from their point of view, she had her aneurysm stented at [facility] 05/2024. If she can discontinue Plavix [...] Plan (02/13/2023 3:40 PM EDT): [facility] specifically state that there is no coverage for liposuction Recommend consultation with bariatric surgeon about weight loss, with her concerns about gastroparesis and the operation, she declines this referral for now Severe recurrent major depression 12/05/2015 Assessment & Plan (06/01/2024 11:02 AM EDT): Seen at [facility], last christos cummings psychiatrist 05/21/2024 -Denies SI [...] connected to a therapist and psychiatrist at [facility]. She meets with her therapist (Domi Palma) [...] none reported PLAN: 1. Follow up with [facility]: Not recommended for follow-up 2. Patient goal [...] migraine headaches 05/29/2024 Headache 12/05/2015 09/04/2024 Encounters Date Type Department Care Team Description 03/30/2025 9:00 AM EDT Procedure Visit [address] [address] Shanice Jones MD Cervicalgia (Primary Dx) 03/30/2025 Travel 03/30/[address] [address] Shanice Jones MD No Show 03/29/[address] [address] Shanice Jones MD Chart Prep 03/26/2025 3:30 PM EDT Office Visit [address] [address] Shanice Jones MD Fall, subsequent encounter (Primary Dx); Type 2 diabetes mellitus with other specified complication, with long-term current use of insulin ([facility]); Dietary counseling; Exercise counseling; Overweight; Cervicalgia 03/26/2025 Travel 03/25/[address] [address] Shanice Jones MD chart prep 03/23/2025 Orders Only [facility] [address] [place] [address] Maurisio Reed MD 03/22/2025 Refill [facility] [address] [place] [phone] Shanice Jones MD 03/19/2025 Patient Outreach [address] [place] [address] Shanice Jones MD Pre-visit Planning ((Unable to reach for PVP screening, LVM)) 03/15/2025 Refill [facility] [address] [place] [address] Shanice Jones MD 02/24/2025 Patient Outreach [address] [address] Shanice Jones MD Care Coordination ([facility]- ED status check) 02/24/2025 Patient Outreach [facility] [address] [place] [phone] Shanice Jones MD 02/16/[address] [address] Shanice Jones MD Saturday Chronic pain group 02/16/2025 Refill [facility] [address] [place] [address] Shanice Jones MD 02/09/2025 9:15 AM EDT Procedure Visit [address] [address] Shanice Jones MD Trapezius muscle spasm (Primary Dx); Spinal arthritis 02/09/2025 Travel 01/27/2025 Telephone [facility] [address] [place] [address] Shanice Jones MD 01/27/2025 Refill [facility] [address] [place] [phone] Shanice Jones MD 01/22/2025 Population Health Risk Score [facility] () Department [address] [place] [phone] Provider, Population Health Generic 01/19/2025 Refill [facility] [address] [place] [phone] Shanice Jones MD Vitamin D deficiency 01/11/2025 2:45 PM EST Office Visit [facility] [address] [place] [phone] Shanice Jones MD Hospital discharge follow-up (Primary Dx); Type 2 diabetes mellitus with other specified complication, with long-term current use of insulin (CMS/HCC); Portal hypertensive gastropathy (CMS/HCC) (CMS/HCC); Malignant neoplasm of endometrium (CMS/HCC); Cerebral aneurysm; Severe episode of recurrent major depressive disorder, with psychotic features (CMS/HCC); Mild persistent asthma without complication 01/11/2025 Telephone [facility] [address] [place] [address] Shanice Jones MD [facility] (Underwear, protective prevail per fit xxlrg) 01/11/2025 Travel from Last 3 Months Immunizations Immunization Administration Dates Next Due Hep B, adult [...] Mass Index 29.23 03/30/2025 11:38 AM EDT Plan of Treatment Health Maintenance Due Date Last Done Comments CT Colonography 1965 FIT DNA/Cologuard 1965 Sigmoidoscopy 1965 Disability Screening 1965 Diabetes: Foot Exam 1975 Eye Exam 1975 Alcohol/Substance Use Screening 1977 Hepatitis A Vaccines (1 of 2 - Risk 2-dose series) 1984 Pap Smear 10/24/2021 10/24/2018 Cervical Cancer Screening 10/24/2023 HPV/Cotest 10/24/2023 10/24/2018 COVID-19 Vaccine (3 - season) 2024 12/01/2021, 01/25/2021 Influenza Vaccine (#1) 2024 , 10/02/2021, 10/18/2020, Additional history exists SDOH Screening 01/09/2025 01/10/2024 Diabetes: Urine Protein Screening 06/05/2025 06/05/2024, 10/28/2023, 10/10/2022, Additional history exists Lipid Panel 06/05/2025 06/05/2024, 12/13, 02/28/2022, Additional history exists Mammogram 06/10/2025 06/10/2024, 05/13, 07/04/2020, Additional history exists FIT 07/28/2025 07/28/2024 FOBT 07/28/2025 07/28/2024 Diabetes: Hemoglobin A1C 09/26/2025 025, 02/16/2025, 12/01/2024, Additional history exists Depression Screening 03/26/2026 03/26/2025, 03/26/20 25 Tobacco Screening 03/26/2026 03/26/2025 DTaP/Tdap/Td Vaccines (3 - Td or Tdap) 12/25/2031 12/25/2021, 08/02/2010 Colonoscopy 10/07/2034 10/07/2024, 09/16/2014 Colorectal Cancer Screening 10/07/2034 RSV Patients and Patients Aged 60 years [...] Procedure Name Priority Date/Time Associated Diagnosis Comments POCT GLUCOSE Routine 03/26/2025 4:07 PM EDT Type 2 diabetes mellitus with other specified complication, with long-term current use of insulin (CMS/HCC) GENERAL Routine 02/09/2025 10:05 AM EDT Trapezius muscle spasm US ABDOMEN COMPLETE WITH ELASTOGRAPHY Routine 01/20/2025 10:32 AM EDT Fatty liver POCT GLYCATED HEMOGLOBIN, TOTAL Routine 11/03/2024 11:39 AM EST Type 2 diabetes mellitus with hyperglycemia, with long-term current use of insulin (CMS/HCC) HM COLONOSCOPY Routine 10/07/2024 10:40 AM EST BI MAMMOGRAM SCREENING TOMOSYNTHESIS BILATERAL Routine 06/10/2024 [...] hyperglycemia, with long-term current use of insulin ([facility]) LIPID PANEL, STANDARD Routine 06/05/2024 11:45 AM EDT Type 2 diabetes mellitus with hyperglycemia, with long-term current use of insulin ([facility]) HM PAP/HPV Routine 10/24/2018 from Last 3 Months or Most Recently Relevant to Health Maintenance Results * POCT Glucose (03/26/2025 4:07 PM EDT) [facility] Glucose Blood, POC 105 60 - 200 mg/dL QC Media Lot # [id number] Lot# Expiration Date 101,526 Blood Capillary blood specimen / Unknown 03/26/2025 4:07 PM EDT Shanice Jones MD POINT OF CARE TEST ENTER/EDIT ORDERABLES Final Result * Trigger Point injection (02/09/2025 10:05 AM EDT) Narrative Shanice Jones MD - 02/09/2025 10:05 AM EDT Shanice Jones MD ? 02/09/2025 10:10 AM Trigger Point injection Date/Time: 02/09/2025 10:05 AM Performed by: Shanice Jones MD Authorized by: Shanice Jones MD ?? Consent: ??Consent obtained: ??Written ??Consent given by: ??Patient ??Procedure risks and benefits discussed: Yes ?Patient questions answered: Yes ?Patient agrees, verbalizes understanding, and wants to proceed: Yes ?? Shell protocol: ??Procedure explained and questions answered to patient or proxy's satisfaction: yes ?Relevant documents present and verified: yes ?Patient identity confirmed: ??Verbally with patient Indications: ??Indications: ??Msucle spasm Pre-procedure details: ??Skin preparation: ??Antiseptic wash Sedation: ??Sedation type: ??None Anesthesia: ??Anesthesia method: ??None Procedure specific details: ?? Palpated muscles of the trapezius and L deltoid in spasm, 12 points in total, washed with alcohol pad 70%, and then infiltrated in stellate manner with 0.3cc- 0.5cc lidocaine 2% without epi Post-procedure details: ??Procedure completion: ??Tolerated well, no immediate complications us Shanice Jones MD IN CLINIC/BEDSIDE ORDERABLES F inal Result * US Abdomen Comp w elastography (01/20/2025 10:32 AM EDT) Anatomical Region Laterality Modality Abdomen Ultrasound 01/20/2025 10:3 2 AM EDT Narrative 01/20/2025 12:30 PM EDT ? [facility] ?[address] ?[place] [address] ? Ultrasound Report ? Signed ? Patient: Lindsey Wilson ? MR#: [id number] ? : 1965 ?Acct:[id number] ? Age/Sex: 59 / F ?ADM Date: 01/20/25 ? Loc: HO.US ? Attending Dr: Shanice Jones MD ? Ordering Physician: Shanice Jones ?? Date of Service: 01/20/25 ?? Procedure(s): US abdomen comp w elastography ?? Accession Number(s): [id number] ? cc: Shanice Jones ? EXAMINATION: ??US ABDOMEN COMPLETE WITH LIVER ELASTOGRAPHY ? HISTORY: FATTY LIVER ? TECHNIQUE: Real-time grayscale ultrasound imaging of the abdomen was ?? performed and images were reviewed. ? COMPARISON: Comparison is made with the prior examination dated ?? 11/02/2019. ? FINDINGS: ?? Liver: ??The right lobe of the liver measures 15.8 cm in size. The left ?? lobe of the liver measures 15.4 cm in size. The liver demonstrates ?? coarsened and increased echotexture, consistent with steatosis. ??The ?? liver contour appears nodular suggestive of cirrhosis. There is a 5 x 5 ?? x 6 mm echogenic focus in the right lobe which may represent a ?? hemangioma. No intrahepatic biliary ductal dilatation is identified. ? There is normal hepatopedal flow in the portal vein. ? Ultrasound elastography of the liver was performed with 10 separate ?? measurements of the liver parenchyma with the patient in the supine ?? position. ??Measurements were obtained approximately 2 cm below ?? Jacquelin's capsule and perpendicular to the capsule. ??Images are of ?? satisfactory quality. ? The median shear wave velocity is 2.08 m/s. ?? The interquartile range/median (IQR/median) is 0.19. ? Gallbladder and biliary tree: The gallbladder is unremarkable, without ?? evidence of calculi, wall thickening, or pericholecystic fluid. ??There ?? is no sonographic Jorge sign. ??The common bile duct is normal in ?? caliber measuring 2 mm. ? Kidneys: ??The right kidney measures 11.7 cm in length. The left kidney ?? measures 12.3 cm in length. ??The kidneys are unremarkable, without ?? evidence of masses, hydronephrosis, or calculi. ? Pancreas: The pancreatic head, neck, and body are unremarkable. The ?? pancreatic tail is obscured by bowel gas. ? Spleen: The spleen is normal in size and contour, measuring 12.7 cm in ?? length. ? Abdominal aorta and inferior vena cava: The visualized portions of the ?? abdominal aorta and inferior vena cava are normal in caliber. ? US/US abdomen comp w elastography ?? IMPRESSION: ? Hepatomegaly and hepatic steatosis. Nodular liver contour, suggestive ?? of cirrhosis. Possible 6 mm hemangioma. ? The median shear wave velocity in the liver is 2.08 m/s, corresponding ?? to a median liver stiffness of 13.00 kPa. ??The IQR/median value is ?? 0.19. ??This is indicative of a poor quality data set, and the estimated ?? liver stiffness may be unreliable. ?? Findings are indicative of a high elastography value suggestive of ?? compensated advanced chronic liver disease. ? REFERENCE: ?? Society of Radiologists in Ultrasound Liver Stiffness Thresholds (2020): ? LIVER STIFFNESS THRESHOLDS: ?? *Shear wave velocity less than 1.3 m/s (Liver Stiffness equal or less ?? than 5 kPa): ??High probability of being normal. ?? *Shear wave velocity less than 1.7 m/s (Liver Stiffness less than 9 ?? kPa): ??In the absence of other known clinical signs, rules out ?? compensated advanced chronic liver disease. ?? *Shear wave velocity between 1.7-2.1 m/s (Liver Stiffness 9-13 kPa): ? Suggestive of compensated advanced chronic liver disease but need ?? further test for confirmation. ?? *Shear wave velocity between 2.1-2.4 m/s (Liver Stiffness 13-17 kPa): ? Rules in compensated advanced chronic liver disease. ?? *Shear wave velocity ??greater than 2.4 m/s (Liver Stiffness over 17 ?? kPa): ??Suggestive of clinically significant portal hypertension. ? QUALITY OF DATA SET: ?? *IQR/Median value equal or less than 0.15 implies a quality data set. ?? *IQR/Median value over 0.15 implies a poor quality data set. ? SIGNIFICANT CHANGE FROM PRIOR EXAM: ?? Significant change if liver stiffness measurement is 10% or greater ?? from prior exam. ? OTHER CONSIDERATIONS: ?? The stage of liver fibrosis may be overestimated in the setting of ?? acute hepatitis, liver inflammation, elevated liver function tests, ?? hepatic vascular congestion, obstructive cholestasis, non-fasting ?? state, and infiltrative diseases such as amyloidosis and lymphoma. ??In ?? some patients with NAFLD, the liver stiffness thresholds for ?? compensated advanced chronic liver disease may be lower. ??In causes ?? other than viral hepatitis and NAFLD, liver stiffness thresholds are ?? not well established. ? Electronically signed by: ??Shekhar Cosme MD ??01/20/2025 12:27 PM EDT ?? RP ? Dictated By: ?Shekhar Cosme MD ? Signed By: ?<Electronically signed by Shekhar Cosme MD in OV> ?01/20/25 1227 ? DD/ 1032 ? TD/TT: 01/20/25 1051 ? Geoint Analyst: ? Procedure Note Bj Carr - 01/20/[address] [address] Ultrasound Report Signed Patient: Lindsey Wilson MR#: [id number] : 1965Acct:[id number] Age/Sex: 59 / FADM Date: 01/20/25 Loc: HO.US Attending Dr: Shanice Jones MD Ordering Physician: Shanice Jones Date of Service: 01/20/25 Procedure(s): US abdomen comp w elastography Accession Number(s): [id number] cc: Shanice Jones EXAMINATION: US ABDOMEN COMPLETE WITH LIVER ELASTOGRAPHY HISTORY: FATTY LIVER TECHNIQUE: Real-time grayscale ultrasound imaging of the abdomen was performed and images were reviewed. COMPARISON: Comparison is made with the prior examination dated 11/02/2019. FINDINGS: Liver: The right lobe of the liver measures 15.8 cm in size. The left lobe of the liver measures 15.4 cm in size. The liver demonstrates coarsened and increased echotexture, consistent with steatosis. The liver contour appears nodular suggestive of cirrhosis. There is a 5 x 5 x 6 mm echogenic focus in the right lobe which may represent a hemangioma. No intrahepatic biliary ductal dilatation is identified. There is normal hepatopedal flow in the portal vein. Ultrasound elastography of the liver was performed with 10 separate measurements of the liver parenchyma with the patient in the supine position. Measurements were obtained approximately 2 cm below Jacquelin's capsule and perpendicular to the capsule. Images are of satisfactory quality. The median shear wave velocity is 2.08 m/s. The interquartile range/median (IQR/median) is 0.19. Gallbladder and biliary tree: The gallbladder is unremarkable, without evidence of calculi, wall thickening, or pericholecystic fluid. There is no sonographic Jorge sign. The common bile duct is normal in caliber measuring 2 mm. Kidneys: The right kidney measures 11.7 cm in length. The left kidney measures 12.3 cm in length. The kidneys are unremarkable, without evidence of masses, hydronephrosis, or calculi. Pancreas: The pancreatic head, neck, and body are unremarkable. The pancreatic tail is obscured by bowel gas. Spleen: The spleen is normal in size and contour, measuring 12.7 cm in length. Abdominal aorta and inferior vena cava: The visualized portions of the abdominal aorta and inferior vena cava are normal in caliber. US/US abdomen comp w elastography IMPRESSION: Hepatomegaly and hepatic steatosis. Nodular liver contour, suggestive of cirrhosis. Possible 6 mm hemangioma. The median shear wave velocity in the liver is 2.08 m/s, corresponding to a median liver stiffness of 13.00 kPa. The IQR/median value is 0.19. This is indicative of a poor quality data set, and the estimated liver stiffness may be unreliable. Findings are indicative of a high elastography value suggestive of compensated advanced chronic liver disease. REFERENCE: Society of Radiologists in Ultrasound Liver Stiffness Thresholds (2019): LIVER STIFFNESS THRESHOLDS: *Shear wave velocity less than 1.3 m/s (Liver Stiffness equal or less than 5 kPa): High probability of being normal. *Shear wave velocity less than 1.7 m/s (Liver Stiffness less than 9 kPa): In the absence of other known clinical signs, rules out compensated advanced chronic liver disease. *Shear wave velocity between 1.7-2.1 m/s (Liver Stiffness 9-13 kPa): Suggestive of compensated advanced chronic liver disease but need further test for confirmation. *Shear wave velocity between 2.1-2.4 m/s (Liver Stiffness 13-17 kPa): Rules in compensated advanced chronic liver disease. *Shear wave velocity greater than 2.4 m/s (Liver Stiffness over 17 kPa): Suggestive of clinically significant portal hypertension. QUALITY OF DATA SET: *IQR/Median value equal or less than 0.15 implies a quality data set. *IQR/Median value over 0.15 implies a poor quality data set. SIGNIFICANT CHANGE FROM PRIOR EXAM: Significant change if liver stiffness measurement is 10% or greater from prior exam. OTHER CONSIDERATIONS: The stage of liver fibrosis may be overestimated in the setting of acute hepatitis, liver inflammation, elevated liver function tests, hepatic vascular congestion, obstructive cholestasis, non-fasting state, and infiltrative diseases such as amyloidosis and lymphoma. In some patients with NAFLD, the liver stiffness thresholds for compensated advanced chronic liver disease may be lower. In causes other than viral hepatitis and NAFLD, liver stiffness thresholds are not well established. Electronically signed by: Shekhar Cosme MD 01/20/2025 12:27 PM EDT Dictated By: Shekhar Cosme MD Signed By: <Electronically signed by Shekhar Cosme MD in OV> 01/20/25 1227 DD/ 1032 TD/TT: 01/20/25 1051 Geoint Analyst: us Shanice Jones MD IMG US PROCEDURES Final Result * Hm Colonoscopy (10/07/2024 10:40 AM EST) Colonoscopy Normal Normal Narrative Idalmis Huber - 10/07/2024 10:40 AM EST Recommended 10 years ??. see results scanned in communications media professor on 10/07/2024 us Historical Provider HEALTH MAINTENANCE Edited Result - Final * BI Mammogram Screening Tomosynthesis Bilateral (06/10/2024 3:25 PM EDT) Anatomical Region Laterality Modality Breast Bilateral Mammography 06/10/2024 3:25 PM EDT Narrative 06/17/2024 11:18 AM EDT ? [facility] ? [address] ?[place] [address] ? Mammography Report ? Signed ? Patient: Lindsey Wilson ? MR#: [id number] ? : 1965 ?Acct:[id number] ? Age/Sex: 59 / F ?ADM Date: 06/10/24 ? Loc: HO.MAMMO ? Attending Dr: Shanice Jones MD ? Ordering Physician: Shanice Jones ?Results: 1Negative ? Date of Service: 06/10/24 ?Follow Up: 1 Year From Orig ?? inal Mammogram ? Procedure(s): MM tomosynthesis screening BI ?? Accession Number(s): [id number] ? cc: Shanice Jones ? EXAMINATION: ?? [...] 1114 ? DD/ 1525 ? TD/TT: ? Geoint Analyst: ? Procedure Note Donshaneter, Image - 06/17/2024 [facility] [address] [place] [address] Mammography Report Signed Patient: Lindsey Wilson MR#: [id number] : 1965Acct:[id number] Age/Sex: 59 / FADM Date: 06/10/24 Loc: JULIANNA Attending Dr: Shanice Jones MD Ordering Physician: Felix Jonesults: 1Negative Date of Service: 06/10/24Follow Up: 1 Year From Orig inal Mammogram Procedure(s): MM tomosynthesis screening BI Accession Number(s): [id number] cc: Shanice Jones EXAMINATION: MM SCREENING DIGITAL [...] in OV> 06/17/24 1114 DD/ 1525 TD/TT: Geoint Analyst: Shanice Jones MD IMG BI PROCEDURES Final Result * Albumin, Random Urine W/Creatinine (06/05/2024 11:45 AM EDT) Creatinine, Urine 148.96 mg/dL [facility] Microalbumin Urine 12.0 mg/L [facility] Microalbum Creatinine Ratio Ur 8.0 <30 ug/mg cr [facility] Comment:Albumin/Creatinine R atio Reference Ranges: Normal: < 30 ug/mg creatinine Microalbuminuria: 30 - 300 ug/mg creatinineClinical Albuminuria: > 300 ug/mg creatinine Urine (Urine, Random) 06/05/2024 11:45 AM EDT 06/05/2024 12:51 PM EDT Shanice Jones MD LAB URINE ORDERABLES Final Res ult [facility] [address] [place] [phone] * Hepatitis C Antibody with Reflex to HCV, RNA, Quantitative, Real-Time PCR (06/05/2024 11:45 AM EDT) [facility] Hepatitis C Antibody Nonreactive Nonreactive [facility] Comment:Antibodies to HCV no t detected; does not exclude early acuteHCV infection. Blood Venous blood specimen / Unknown 06/05/2024 11:45 AM EDT 06/05/2024 1:04 PM EDT us Gissel Machuca MD LAB BLOOD ORDERAB LES Final Result Performing Organization Address [facility] Co de Phone Number [facility] [address] [place] [phone] * HIV-1/2 Antigen and Antibodies, Fourth Generation, with Reflexes (06/05/2024 11:45 AM EDT) [facility] HIV AB/AG Nonreactive Nonreactive [facility] Comment:HIV-1 p24 Ag and/or HIV-1/HIV-2 Ab not detected.A test result that is nonreactive does not exclude thepossibility of exposure to or infection with HIV-1 and/orHIV-2. Nonreactive results in this assay for individualswith prior exposure to HIV-1 and/or HIV-2 may be due toantigen and antibody levels that are below the limit ofdetection of this assay.[employer] HIV Ag/Ab Combo assay result andsupplemental assay results should be interpreted inconjunction with the patient's clinical presentation,history and other laboratory results. If the results areinconsistent with clinical evidence, additional testing issuggested to confirm the result. Blood Venous blood specimen / Unknown 06/05/2024 11:45 AM EDT 06/05/2024 1:04 PM EDT us Gissel Machuca MD LAB BLOOD ORDERAB LES Final Result Performing Organization Address City/[facility]/ZIP Co de Phone Number [facility] [address] [place] [phone] * (ABNORMAL) Lipid Panel, Standard (06/05/2024 11:45 AM EDT) Triglycerides 132 <150 mg/dL [facility] Comment:Desirable Triglyceri de: less than 150 mg/dLBorderline High Triglyceride 150-199 mg/dLHigh Triglyceride: 200-499 mg/dLVery High Triglyceride: greater than or equal to 5OO mg/dL Cholesterol 110 <200 mg/dL [facility] Comment:Desirable Cholestero l: less than 200 mg/dLBorderline High Cholesterol: 200-239 mg/dLHigh Cholesterol: greater than 239 mg/dL LDL Cholesterol Calculated 47 <100 mg/dL [facility] Comment:Desirable LDL: less than 100 mg/dLNear Optimal/Above Optimal LDL: 110- 129 mg/dLBorderline High LDL: 130-159 mg/dLHigh LDL: 160-189 mg/dLVery High LDL: greater than or equal to 190 mg/dL HDL Cholesterol 37(L) >40 mg/dL [facility] Comment:Desirable HDL: great er than 40 mg/dL Note: This HDL assay may give artificially low results in patients with liver disease. Blood Venous blood specimen / Unknown 06/05/2024 11:45 AM EDT 06/05/2024 1:04 PM EDT Shanice Jones MD LAB BLOOD ORDERABLES Final Res ult [facility] [address] [place] [phone] * HM PAP/HPV (10/24/2018) Pap Smear 1. NILM 1. NILM HPV Not Detected Undetected, Indeterminat e, Quantitative , Not Detected Maurisio Provider HEALTH MAINTENANCE Final Result from Last 3 Months or Most Recently Relevant to Health Maintenance [facility] Care Teams Grain Oilseed Or Pasture Grower Relationship Specialty Start Date End Date Shanice Jones MD [address] [place] [phone] PCP - General Family Medicine 12/22/20 Cary Alonzo Quality Improvement Coordinator (Rn)Rug Dry Room Attendant 08/26/24 Himanshu Caring 12/26/24
--- OUTSIDE RECORDS SUMMARY | 2025-03-30 13:14 | XMS_ITS | Encounter Summary ---
Author Organization [employer] Address [address] [facility] 7t [place] [address] Care Team Providers Care Ostomy Care Nurse Name Role Phone Shanice Jones MD Primary Care Provider [phone] Reason for Visit * Reason Onset Date Comments chart prep 03/25/2025 Encounter Details Date Type Department Care Team ([facility] st Contact Info) Description 03/25/2025 Telephone [facility] [address] [place], [place] [phone] Shanice Jones MD [address] [place] [address] chart prep Social History Tobacco Use Types Packs/Day Years [...] encounter Miscellaneous Notes * Telephone Encounter - Norma Haas [place] - 03/25/2025 2:21 PM EDT Chart Prep Labs: done Images: done Referrals: complete Vaccines due: Covid and Flu Screenings: pap smear and eye exam Overdue care gaps: Glucose, SDOH, PHQ-9, Disability screen, and Tobacco documented in this encounter Plan of Treatment Not on file documented as of this encounter Visit Diagnoses Not on filedocumented in this encounter Care Teams Ostomy Care Nurse Relationship Specialty Start Date End Date Shanice Jones MD [address] [place] [phone] PCP - General Family Medicine 12/22/20 Cary Alonzo Zinc Furnace ChargerTraveling Nurse 08/26/24 [facility]hu [facility] 12/26/24 documented as of this encounter
--- OUTSIDE RECORDS SUMMARY | 2025-03-30 13:14 | XMS_ITS | Encounter Summary ---
Author Organization [employer] Address [address] [facility] 7t [place] [address] Care Team Providers Care Single Stroke Preformer Name Role Phone Shanice Jones MD Primary Care Provider Encounter Details Date Type Department Care Team (Late st Contact Info) Description 10/13/2024 Orders Only [facility] [address] [place] [address] ProviderMaurisio MD Social History Tobacco Use Types [...] on filedocumented in this encounter Care Teams Single Stroke Preformer Relationship Specialty Start Date End Date Shanice Jones MD [address] [place] [phone] PCP - General Family Medicine 12/22/20 Cary Alonzo Curriculum Assistant PrincipalFund Raiser 08/26/24 Himanshu Hayes 12/26/24 documented as of this encounter
--- OUTSIDE RECORDS SUMMARY | 2025-03-30 13:14 | XMS_ITS | Encounter Summary ---
Author Organization [employer] Address [address] [facility] [address] [place] [address] Care Team Providers Care At Risk Specialist Name Role Phone Shanice Jones MD Primary Care Provider [phone] Encounter Details Date Type Department Care Team (Latest Contact Info) Description 03/30/2025 Travel Social History Tobacco Use Types Packs/Day [...] documented as of this encounter Care Teams At Risk Specialist Relationship Specialty Start Date End Date Shanice Jones MD [address] [place] [address] PCP - General Family Medicine 12/22/20 Cary Alonzo Hand StraightenerRn Emergency 08/26/24 [facility] 12/26/24 documented as of this encounter
--- OUTSIDE RECORDS SUMMARY | 2025-03-30 13:15 | XMS_ITS | Encounter Summary ---
Author Organization [employer] Address [address] [facility] 7t [place] [address] Care Team Providers Care Electrical Calibrator Name Role Phone Shanice Jones MD Primary Care Provider [phone] Reason for Visit * Reason Comments Follow-up Encounter Details Date Type Department Care Team ([facility] st Contact Info) Description 03/26/2025 3:30 PM EDT Office Visit [facility] [address] [place], [place] [phone] Shanice Jones MD [address] [place], [place] [phone] Fall, subsequent encounter (Primary Dx); Type 2 diabetes mellitus with other specified complication, with long-term current use of insulin ([facility]); Dietary counseling; Exercise counseling; Overweight; Cervicalgia Social History Tobacco Use Types Packs/Day Years [...] Sign Reading Time Taken Comments Blood Pressure 133/82 03/26/2025 4:04 PM EDT Pulse 77 03/26/2025 4:04 PM EDT Temperature 35.1 ??C (95.1 ??F) 03/26/2025 4:04 PM ED T Respiratory Rate 20 03/26/2025 4:04 PM EDT Oxygen Saturation 96% 03/26/2025 4:04 PM EDT Inhaled Oxygen Concentration - - Weight 75.8 kg (167 lb) 03/26/2025 4:04 PM EDT Height 160 cm (5' 3 ) 03/26/2025 4:04 PM EDT Body Mass Index 29.58 03/26/2025 4:04 PM EDT documented in this encounter Functional Status * Over the [...] 4:46 PM Shanice Carrasco MD * Feeling down, depressed, or hopeless Answer Date of Assessment Author Several days 03/26/2025 4:46 PM Shanice Carrasco MD * Trouble falling or staying asleep, or sleeping too much Answer Date of Assessment Author Several days 03/26/2025 4:46 PM Shanice Carrasco MD * Feeling tired or having little [...] 03/26/2025 4:46 PM Shanice Carrasco MD * Thoughts that you would be better off or hurting yourself in some way Answer Date of Assessment Author Not at all 03/26/2025 4:46 PM Shanice Carrasco MD * Patient Health Questionnaire-9 Score Answer Date of Assessment Author 6 03/26/2025 4:46 PM Shanice Carrasco MD * How difficult have these problems made it for you to do your work, take care of things at home, or get along with other people? Answer Date of Assessment Author Somewhat difficult 03/26/2025 4:46 PM Shanice Schreiber MD documented as of this encounter Progress Notes * Shanice Jones MD - 03/26/2025 3:30 PM EDT SUBJECTIVE: Lindsey Lofton is a 59 y.o. year old female who presents for chronic disease management. Denies recent illness, ER visit, or hospitalization. Acute Concerns: Dr Ross-- referral for varicose veins L arm pain after fall, will get xray of humerus She is still in pain around her neck and with muscle spasms Interim Updates and Plans: She had EGD at [facility] 10/07/24 and results returned 10/19/24: FINAL PATHOLOGIC [...] fibrosis likely) Hep B/C, HIV1 negative 05/2024 Migraines severe lately Started Emgality Seeing [facility] for neurology Iron deficiency anemia Newly diagnosed Also with mixed thrombocytopenia L ear hearing loss, Dx at [place] [facility], mild Depression/anxiety On Klonopin 1mg TID, Ambien 10mg at night, Doxepin 100mg at night, Lexapro 20mg Would like to go to group program in [facility] or [place], will get TB test so that she can be eligiblefor program Clonazepam prescribed by Dr. Perales, [facility] Left ankle sprain walking with walker, improving doing exercises in the bed and in the bath Falls multiple times in 2022 Low O2 at night Sleep study done 12/2022 On 2L oxygen for sleeping DM2 A1C 6.0 Sees [facility], Dr Potts for endocrinology eating meat and veggies, despite pain/GERD with gastroparesis oil mixer recommend Novlog to 5units TID, Lantus 20 units at bedtime Metformin 500mg BID Trulicity at 4.5mg weekly Crestor 20mg, ASA 81mg Pulm concerns JENNYFER? The patient has been sleeping on the sofa because she cannot sleep in her bed. She has significant snoring. The patient does wake up tired even after a full night's sleep. Her Farrag[place] score is elevated . Asthma Prn respiratory therapy with good effect has nebulizer machine at home Nighttime O2 04/2024 pulm continue oxygen at night, requesting oxygen mask water base lubricant CPT with acapella valve and nebulizer start Azithromycin MWF CT chest Obesity she feels she is falling due to instability with large abdomen Saw Dr Moore 02/2023, plastic surgeon at [facility] who recommended bariatric surgery Losing weight with Trulicity 4.5mg Spinal arthritis cortisone injections for back- PSSS 12/25/21 Saw urology 08/24/21-- renal ultrasound MUST be ordered to rule out renal stones, not done yet [facility]- [facility] [facility] Ongoing issues with her eyes post-op Will have cataracts and lens replacement 07/2023 [facility], preop 07/03/23 Gastroparesis and constipation On azithromycin as pro-motility agent Initially treated at [facility] with Dr Powell, then referred to [facility] to discuss gastric pacemaker 11/02/21; saw them 11/2021. S Had consultation with [facility] weight loss center, but does not want to have gastric bypass surgery there HTN/non obstructive CAD BP < 140/90 today No home numbers available Was admitted to [facility] 04/30/24 due to weakness prior to treadmill stress test 07/[address] Portillo, still very dizzy Transaminitis and elevated bilirubin, anemic and low platelets Health Maintenance Imms- due for Hep A, Flu, COVID Colon- complete Mammo- 03/2023 Pap- 01/2018, DUE now, refer to [facility] Problem List[1] Surgical History[2] Family History[3] Social History Social History Narrative Lives in apartment in [place], [place] with her son Nick Review of Systems Constitutional: Negative. Respiratory: Negative. Cardiovascular: Negative. Musculoskeletal: Positive for arthralgias, back pain and myalgias. Neurological: Positive for weakness. Psychiatric/Behavioral: Positive for dysphoric mood. OBJECTIVE: Vitals: 03/26/25 1604 BP: 133/82 BP Location: Right arm Patient Position: Sitting BP Cuff Size: Large adult Pulse: 77 Resp: 20 Temp: 95.1 ??F (35.1 ??C) TempSrc: Temporal SpO2: 96% Weight: 167 lb (75.8 kg) Height: 5' 3 (1.6 m) Physical Exam Vitals and nursing note reviewed. Constitutional: Appearance: Normal appearance. HENT: Head: Normocephalic and atraumatic. Cardiovascular: Rate and Rhythm: Normal rate and regular rhythm. Pulses: Normal pulses. Heart sounds: Normal heart sounds. Pulmonary: Effort: Pulmonary effort is normal. Breath sounds: Normal breath sounds. Musculoskeletal: General: Tenderness present. Comments: TTP L trapezius muscle with muscle spasm and over L deltoid Skin: General: Skin is warm and dry. Neurological: General: No focal deficit present. Mental Status: She is alert and oriented to person, place, and time. Psychiatric: Mood and Affect: Mood normal. Behavior: Behavior normal. ASSESSMENT/PLAN Problem List Items Addressed This Visit Exercise counseling Type 2 diabetes mellitus with other specified complication, with long-term current use of insulin (CMS/HCC) Relevant Orders POCT Glucose (Completed) Cervicalgia Current Assessment & Plan Booked Friday 03/30 at 9am for trigger point injections Relevant Medications lidocaine (Xylocaine) 5 % ointment Other Visit Diagnoses Fall, subsequent encounter - Primary Relevant Medications lidocaine (Xylocaine) 5 % ointment Other Relevant Orders XR Humerus Left Dietary counseling Overweight Follow Up: 1 week for trigger point injections or sooner prn Allergies[4] Current Medications[5] Faroese Translation: Provided by [facility] staff member GLEN Yee [1] Patient Active Problem List Diagnosis Angina pectoris [...] use of insulin (CMS/HCC) Hospital discharge follow-up Fibromyalgia Depression, unspecified Cervicalgia Anxiety disorder [2] History reviewed. No pertinent surgical history. [3] No family history on file. [4] Allergies Allergen Reactions Egg White (Egg Protein) Rash Latex Rash Other reaction(s): Rash Penicillins Rash Other reaction(s): Rash [5] Current Outpatient Medications: cyclobenzaprine (Flexeril) 5 MG tablet, TAKE 1 TABLET BY MOUTH THREE TIMES DAILY NEEDED FOR MUSCLE SPASMS FOR 10 DAYS, Disp: , Rfl: acetaminophen (Tylenol) 325 MG tablet, Take 3 tablets by mouth every 8 (eight) hours if needed., Disp: , Rfl: Alcohol Swabs (Alcohol Pads) 70 % pads, Maintenance, 05/02/15 13:57:37, Compound, Disp: , Rfl: Aspirin Low Dose 81 MG EC tablet, Take 81 mg by mouth in the morning., Disp: , Rfl: cholecalciferol (Vitamin D-3) 25 MCG tablet, TAKE 1 TABLET BY MOUTH EVERY MORNING, Disp: 90 tablet,Rfl: 3 clonazePAM (KlonoPIN) 1 MG tablet, Take 1 tablet (1 mg) by mouth if needed in the morning, at noon,and at bedtime for anxiety. (Patient taking differently: Take 1 mg by mouth 2 times daily.), Disp: 90 tablet, Rfl: 0 Diclofenac Sodium 1 % gel, APPLY 2 GRAMS TO AFFECTED AREA(S) OF LOWER BACK TWICE DAILY FOR PAIN, Disp: , Rfl: docusate sodium (Colace) 100 MG capsule, Take 1 capsule (100 mg) by mouth Once per day., Disp: 90 capsule, Rfl: 3 Easy Touch Pen [place] 31G X 6 MM misc, USE FOUR TIMES DAILY DIRECTED, Disp: 100 each, Rfl: 11 escitalopram (Lexapro) 20 MG tablet, TAKE 2 TABLETS BY MOUTH ONCE DAILY IN THE MORNING, Disp: , Rfl: Ferrous Sulfate (iron) 325 (65 Fe) MG tablet, TAKE 1 TABLET BY MOUTH EVERY MORNING, Disp: 90 tablet, Rfl: 1 FreeStyle lancets, Maintenance, 05/02/15 13:58:32, Compound, Disp: [...] OR FOOD, Disp: 90 tablet, Rfl: 3 lidocaine (Xylocaine) 5 % ointment, Apply topically if needed in the morning, at noon, and at bedtime (neck pain)., Disp: 30 g, Rfl: 3 metFORMIN (Glucophage) 500 MG tablet, TAKE 2 TABLETS BY MOUTH TWICE DAILY IN THE MORNING AND EVENING, Disp: 360 tablet, Rfl: 3 pantoprazole (ProtoNix) 40 MG EC tablet, TAKE 1 TABLET BY MOUTH TWICE DAILY IN THE MORNING AND IN THE EVENING, Disp: 180 tablet, Rfl: 3 Plavix 75 MG tablet, Take 75 mg by mouth., Disp: , Rfl: polyethylene glycol, PEG, 3350 (MiraLax) 17 GM/SCOOP powder, Take 17 g by mouth Once per day., Disp: 527 g, Rfl: 2 pregabalin (Lyrica) 200 MG capsule, Take 1 capsule (200 mg) by mouth Once per day., Disp: 90 capsule, Rfl: 3 ProAir RespiClick 108 (90 Base) MCG/ACT aerosol [...] AND AT BEDTIME NEEDED FOR CONSTIPATION, Disp: 180 tablet, Rfl: 1 sucralfate (Carafate) 1 g tablet, TAKE 1 [...] if needed at bedtime., Disp: , Rfl: documented in this encounter Miscellaneous Notes * Assessment & Plan Note - Shanice Jones MD - 03/29/2025 8:55 AM EDTAssociated Problem(s): Cervicalgia Booked Friday 03/30 at 9am for trigger point injections documented in this encounter Plan of Treatment Scheduled Orders Name Type Priority Associated Diagnoses Orde r Schedule XR Humerus Left Imaging Routine Fall, subsequent encounter Expected: 03/26/2025, Expires: 03/26/2026 documented as of this encounter Procedures Procedure Name Priority Date/Time Associated Diagnosis Comments POCT GLUCOSE Routine 03/26/2025 4:07 PM EDT Type 2 diabetes mellitus with other specified complication, with long-term current use of insulin ([facility]) documented in this encounter Results * POCT Glucose (03/26/2025 4:07 PM EDT) Glucose Blood, POC 105 60 - 200 mg/dL QC Media Lot # [id number] Lot# Expiration Date [id number] Blood Capillary blood specimen / Unknown 03/26/2025 4:07 PM EDT Shanice Jones MD POINT OF CARE TEST ENTER/EDIT ORDERABLES Final Result documented in this encounter Visit Diagnoses Diagnosis Fall, subsequent encounter- Primary Type 2 diabetes mellitus with other specified complication, with long-term current use of insulin ([facility]) Dietary counseling Dietary surveillance and counseling Exercise counseling Overweight Cervicalgia documented in this encounter Additional Health Concerns Assessment Noted Time PHQ-9 Depression Total Score: 6 03/26/20 25 4:46 PM EDT documented as of this encounter Care Teams Electrical Calibrator Relationship Specialty Start Date End Date Shanice Jones MD [address] [place] [address] PCP - General Family Medicine 12/22/20 Cary Alonzo Frame TrimmerFront Tender 08/26/24 [facility] 12/26/24 documented as of this encounter
--- OUTSIDE RECORDS SUMMARY | 2025-03-30 13:15 | XMS_ITS | Encounter Summary ---
Author Organization [employer] Address [address] [facility] 7t [place] [address] Care Team Providers Care Middleware Consultant Name Role Phone Shanice Jones MD Primary Care Provider [phone] Encounter Details Date Type Department Care Team (Latest Contact Info) Description 12/05/2018 Abstract [facility] CONVERSIONS Dental, Provider, DDS Social History Tobacco [...] on filedocumented in this encounter Care Teams Middleware Consultant Relationship Specialty Start Date End Date Shanice Jones MD [address] [place] [phone] PCP - General Family Medicine 12/22/20 Cary Alonzo Weaver Wire LoomTread Builder 08/26/24 [facility] 12/26/24 documented as of this encounter
--- OUTSIDE RECORDS SUMMARY | 2025-03-30 13:15 | XMS_ITS | Encounter Summary ---
Author Organization [employer] Address [address] [facility] 7t [place] [address] Care Team Providers Care Tube Lancer Name Role Phone Shanice Jones MD Primary Care Provider [phone] Reason for Visit * Reason Onset Date Comments Chart Prep 03/29/2025 Encounter Details Date Type Department Care Team ([facility] st Contact Info) Description 03/29/2025 Telephone [facility] [address] [place], [place] [phone] Shanice Jones MD [address] [place] [address] Chart Prep Social History Tobacco Use Types Packs/Day Years [...] encounter Miscellaneous Notes * Telephone Encounter - Ashanti Yu [place] - 03/29/2025 10:43 AM EDT Chart Prep Labs: done Images: not done Spoke with patient son will try to have it today. Referrals: not applicable Vaccines due: Covid, Flu, and Hep A Screenings: pap smear, eye exam, and foot exam Overdue care gaps: SBIRT, SDOH, KARRI-7, Oral health screening, and Disability screen documented in this encounter Plan of Treatment Not on file documented as of this encounter Visit Diagnoses Not on filedocumented in this encounter Additional Health Concerns Assessment Noted Time PHQ-9 Depression Total Score: 6 03/26/20 25 4:46 PM EDT documented as of this encounter Care Teams Tube Lancer Relationship Specialty Start Date End Date Shanice Jones MD [address] [place] [address] PCP - General Family Medicine 12/22/20 Cary Alonzo Organic Lab WorkerManager Field Investigations 08/26/24 [facility] 12/26/24 documented as of this encounter
--- OUTSIDE RECORDS SUMMARY | 2025-03-30 13:15 | XMS_ITS | Encounter Summary ---
Author Organization [employer] Address [address] [facility] 7t [place] [address] Care Team Providers Care Fence Installer Helper Name Role Phone Shanice Jones MD Primary Care Provider Encounter Details Date Type Department Care Team (Late st Contact Info) Description 07/11/2023 Abstract [facility] [address] [place], [place] [phone] Shanice Jones MD [address] [place], [place] [phone] Social History Tobacco Use Types Packs/Day Years [...] 09/16/2014 Recommended 10 year follow up ( [facility] [place] Historical Provider HEALTH MAINTENANCE Final Result documented in this encounter Visit Diagnoses Not on filedocumented in this encounter Care Teams Fence Installer Helper Relationship Specialty Start Date End Date Shanice Jones MD [address] [place] [address] PCP - General Family Medicine 12/22/20 Cary Alonzo Smart Grid EngineerWire Charger 08/26/24 [facility] 12/26/24 documented as of this encounter
--- OUTSIDE RECORDS SUMMARY | 2025-03-30 13:15 | XMS_ITS | Clinical Summary ---
Author Organization Unknown Care Team Providers Care Employee Service Officer Name Role Phone BRENDA FUCHS, ELDER Unavailable Unavailable KIERRA SANTAMARIA, JOAQUIM Unavailable Unavailable JEANNA THOMPSON, FELISHA Unavailable Unavailable Payers Payer Name Policy Type Policy Number Effective Date Expira tion Date MEDICAID [facility] [id number] Problems Condition Name Condition Details Condition Category [...] 325 mg tablet 12-26 00:00: 00 Yes [id number] 975 mg EVERY 8 HOURS 975 mg EVERY 8 HOURS (route: oral) Med Classific ation: Analgesic , Anti-infl ammatory or Antipyret ic albuterol sulfate HFA 90 mcg/actuati on aerosol inhaler 12-26 00:00: 00 Yes [id number] 1 puff EVERY 4 HOURS 1 puff EVERY 4 HOURS (route: inhalation ) Med Classific ation: Respirato ry Therapy Agents azelastine 137 mcg (0.1 %) nasal spray 12-26 00:00: 00 Yes [id number] 1 spray DIRECTED 1 spray DIRECTED (route: nasal) Med Classific ation: Respirato ry Therapy Agents budesonide- formoterol HFA 160 mcg-4.8 mcg/actuati on aerosol inhaler 12-26 00:00: 00 Yes [id number] 2 puff 2 TIMES DAILY 2 puff 2 TIMES DAILY (route: inhalation ) Med Classific ation: Respirato ry Therapy Agents cholecalcif tonya (vitamin D3) 25 mcg (1,000 unit) tablet 12-26 00:00: 00 Yes [id number] 1 tablet EVERY AM 1 tablet EVERY AM (route: oral) Med Classific ation: Electroly te Balance-N utritiona l Products clonazepam 0.5 mg tablet 12-26 00:00: 00 Yes [id number] 1 tablet 2 TIMES DAILY 1 tablet 2 TIMES DAILY (route: oral) Med Classific ation: Central Nervous System Agents clopidogrel 75 mg tablet 12-26 00:00: 00 Yes [id number] 1 tablet DAILY 1 tablet DAILY (route: oral) Med Classific ation: Hematolog ical Agents diclofenac 1 % topical gel 12-26 00:00: 00 Yes [id number] Per instruc tions 2 TIMES DAILY Per instructio ns 2 TIMES DAILY (route: topical) Med Classific ation: Dermatolo gical docusate sodium 100 mg capsule 12-26 00:00: 00 Yes [id number] 2 capsule 2 TIMES DAILY 2 capsule 2 TIMES DAILY (route: oral) Med Classific ation: Gastroint estinal Therapy Agents escitalopra m 20 mg tablet 12-26 00:00: 00 Yes [id number] 2 tablet EVERY AM 2 tablet EVERY AM (route: oral) Med Classific ation: Central Nervous System Agents ferrous sulfate 325 mg (65 mg iron) tablet 12-26 00:00: 00 Yes [id number] 1 tablet DAILY 1 tablet DAILY (route: oral) Med Classific ation: Electroly te Balance-N utritiona l Products insulin aspart (U-100) 100 unit/mL (3 mL) subcutaneou s pen 12-26 00:00: 00 Yes [id number] Per instruc tions 3 TIMES DAILY Per instructio ns 3 TIMES DAILY (route: subcutaneo us) Med Classific ation: Endocrine insulin glargine (U-100) 100 unit/mL (3 mL) subcutaneou s pen 2-15 00:00: 00 Yes [id number] 25 unit BEDTIME 25 unit BEDTIME (route: subcutaneo us) Med Classific ation: Endocrine isosorbide mononitrate ER 30 mg tablet,exte nded release 24 hr 2-15 00:00: 00 Yes [id number] 1 tablet EVERY AM 1 tablet EVERY AM (route: oral) Med Classific ation: Cardiovas cular Therapy Agents lactulose 10 gram/15 mL (15 mL) oral solution -15 00:00: 00 Yes [id number] Per instruc tions 3 TIMES DAILY Per instructio ns 3 TIMES DAILY (route: oral) Med Classific ation: Gastroint estinal Therapy Agents levothyroxi ne 50 mcg tablet 2-15 00:00: 00 Yes [id number] 1 tablet DAILY 1 tablet DAILY (route: oral) Med Classific ation: Endocrine meclizine 12.5 mg tablet 2-15 00:00: 00 Yes [id number] 25 mg 3 TIMES DAILY 25 mg 3 TIMES DAILY (route: oral) Med Classific ation: Gastroint estinal Therapy Agents metformin 500 mg tablet 2-15 00:00: 00 Yes [id number] 2 tablet 2 TIMES DAILY 2 tablet 2 TIMES DAILY (route: oral) Med Classific ation: Endocrine omeprazole 20 mg delayed release,dis integrating tablet 2-15 00:00: 00 Yes [id number] 1 tablet DAILY 1 tablet DAILY (route: oral) Med Classific ation: Gastroint estinal Therapy Agents pregabalin 200 mg capsule 2-15 00:00: 00 Yes [id number] 1 capsule BEDTIME 1 capsule BEDTIME (route: oral) Med Classific ation: Central Nervous System Agents quetiapine 25 mg tablet 2-15 00:00: 00 Yes [id number] 1 tablet BEDTIME 1 tablet BEDTIME (route: oral) Med Classific ation: Central Nervous System Agents rosuvastati n 10 mg tablet 12-26 00:00: 00 Yes [id number] 1 tablet BEDTIME 1 tablet BEDTIME (route: oral) Med Classific ation: Cardiovas cular Therapy Agents Senna Lax 8.6 mg tablet 12-26 00:00: 00 Yes [id number] 1 tablet 2 TIMES DAILY 1 tablet 2 TIMES DAILY (route: oral) Med Classific ation: Gastroint estinal Therapy Agents sucralfate 1 gram tablet 12-26 00:00: 00 Yes [id number] 1 tablet EVERY 12 HOURS 1 tablet EVERY 12 HOURS (route: oral) Med Classific ation: Gastroint estinal Therapy Agents thiamine HCl (vitamin B1) 50 mg tablet 12-26 00:00: 00 Yes [id number] 1 tablet EVERY AM 1 tablet EVERY AM (route: oral) Med Classific ation: Electroly te Balance-N utritiona l Products Trulicity 4.5 mg/0.5 mL subcutaneou s pen injector 12-26 00:00: 00 Yes [id number] Per instruc tions WEEKLY Per instructio ns WEEKLY (route: subcutaneo us) Med Classific ation: Endocrine zolpidem 10 mg tablet 12-26 00:00: 00 Yes [id number] 1 tablet BEDTIME 1 tablet BEDTIME (route: oral) Med Classific ation: Central Nervous System Agents acetaminoph en 325 mg tablet 12-26 00:00: 00 Yes [id number] 975 mg EVERY 8 HOURS 975 mg EVERY 8 HOURS (route: oral) Med Classific ation: Analgesic , Anti-infl ammatory or Antipyret ic albuterol sulfate HFA 90 mcg/actuati on aerosol inhaler 12-26 00:00: 00 Yes [id number] 1 puff EVERY 4 HOURS 1 puff EVERY 4 HOURS (route: inhalation ) Med Classific ation: Respirato ry Therapy Agents azelastine 137 mcg (0.1 %) nasal spray 12-26 00:00: 00 Yes [id number] 1 spray DIRECTED 1 spray DIRECTED (route: nasal) Med Classific ation: Respirato ry Therapy Agents budesonide- formoterol HFA 160 mcg-4.8 mcg/actuati on aerosol inhaler 2-15 00:00: 00 Yes [id number] 2 puff 2 TIMES DAILY 2 puff 2 TIMES DAILY (route: inhalation ) Med Classific ation: Respirato ry Therapy Agents cholecalcif tonya (vitamin D3) 25 mcg (1,000 unit) tablet 2- 00:00: 00 Yes [id number] 1 tablet EVERY AM 1 tablet EVERY AM (route: oral) Med Classific ation: Electroly te Balance-N utritiona l Products clonazepam 0.5 mg tablet - 00:00: 00 Yes [id number] 1 tablet 2 TIMES DAILY 1 tablet 2 TIMES DAILY (route: oral) Med Classific ation: Central Nervous System Agents clopidogrel 75 mg tablet - 00:00: 00 Yes [id number] 1 tablet DAILY 1 tablet DAILY (route: oral) Med Classific ation: Hematolog ical Agents diclofenac 1 % topical gel - 00:00: 00 Yes [id number] Per instruc tions 2 TIMES DAILY Per instructio ns 2 TIMES DAILY (route: topical) Med Classific ation: Dermatolo gical docusate sodium 100 mg capsule - 00:00: 00 Yes [id number] 2 capsule 2 TIMES DAILY 2 capsule 2 TIMES DAILY (route: oral) Med Classific ation: Gastroint estinal Therapy Agents escitalopra m 20 mg tablet - 00:00: 00 Yes [id number] 2 tablet EVERY AM 2 tablet EVERY AM (route: oral) Med Classific ation: Central Nervous System Agents ferrous sulfate 325 mg (65 mg iron) tablet - 00:00: 00 Yes [id number] 1 tablet DAILY 1 tablet DAILY (route: oral) Med Classific ation: Electroly te Balance-N utritiona l Products insulin aspart (U-100) 100 unit/mL (3 mL) subcutaneou s pen -15 00:00: 00 Yes [id number] Per instruc tions 3 TIMES DAILY Per instructio ns 3 TIMES DAILY (route: subcutaneo us) Med Classific ation: Endocrine insulin glargine (U-100) 100 unit/mL (3 mL) subcutaneou s pen 2-15 00:00: 00 Yes [id number] 25 unit BEDTIME 25 unit BEDTIME (route: subcutaneo us) Med Classific ation: Endocrine isosorbide mononitrate ER 30 mg tablet,exte nded release 24 hr 2-15 00:00: 00 Yes [id number] 1 tablet EVERY AM 1 tablet EVERY AM (route: oral) Med Classific ation: Cardiovas cular Therapy Agents lactulose 10 gram/15 mL (15 mL) oral solution -15 00:00: 00 Yes [id number] Per instruc tions 3 TIMES DAILY Per instructio ns 3 TIMES DAILY (route: oral) Med Classific ation: Gastroint estinal Therapy Agents levothyroxi ne 50 mcg tablet 2-15 00:00: 00 Yes [id number] 1 tablet DAILY 1 tablet DAILY (route: oral) Med Classific ation: Endocrine meclizine 12.5 mg tablet 2-15 00:00: 00 Yes [id number] 25 mg 3 TIMES DAILY 25 mg 3 TIMES DAILY (route: oral) Med Classific ation: Gastroint estinal Therapy Agents metformin 500 mg tablet 2-15 00:00: 00 Yes [id number] 2 tablet 2 TIMES DAILY 2 tablet 2 TIMES DAILY (route: oral) Med Classific ation: Endocrine omeprazole 20 mg delayed release,dis integrating tablet 2-15 00:00: 00 Yes [id number] 1 tablet DAILY 1 tablet DAILY (route: oral) Med Classific ation: Gastroint estinal Therapy Agents pregabalin 200 mg capsule 2-15 00:00: 00 Yes [id number] 1 capsule BEDTIME 1 capsule BEDTIME (route: oral) Med Classific ation: Central Nervous System Agents quetiapine 25 mg tablet 2-15 00:00: 00 Yes [id number] 1 tablet BEDTIME 1 tablet BEDTIME (route: oral) Med Classific ation: Central Nervous System Agents rosuvastati n 10 mg tablet 2-15 00:00: 00 Yes [id number] 1 tablet BEDTIME 1 tablet BEDTIME (route: oral) Med Classific ation: Cardiovas cular Therapy Agents Senna Lax 8.6 mg tablet 12-26 00:00: 00 Yes [id number] 1 tablet 2 TIMES DAILY 1 tablet 2 TIMES DAILY (route: oral) Med Classific ation: Gastroint estinal Therapy Agents sucralfate 1 gram tablet 12-26 00:00: 00 Yes [id number] 1 tablet EVERY 12 HOURS 1 tablet EVERY 12 HOURS (route: oral) Med Classific ation: Gastroint estinal Therapy Agents thiamine HCl (vitamin B1) 50 mg tablet 12-26 00:00: 00 Yes [id number] 1 tablet EVERY AM 1 tablet EVERY AM (route: oral) Med Classific ation: Electroly te Balance-N utritiona l Products Trulicity 4.5 mg/0.5 mL subcutaneou s pen injector 12-26 00:00: 00 Yes [id number] Per instruc tions WEEKLY Per instructio ns WEEKLY (route: subcutaneo ) Med Classific ation: Endocrine zolpidem 10 mg tablet 12-26 00:00: 00 Yes [id number] 1 tablet BEDTIME 1 tablet BEDTIME (route: [...] AWARENESS FOR SAFETY AND WILL NOTIFY CLINICAL HOOP MAKER AND PHYSICIAN/PROVIDER WITH ANY CHANGE IN CONDITION. [code = SKILLED NURSE WILL MAINTAIN SITUATIONAL AWARENESS FOR SAFETY AND WILL NOTIFY CLINICAL HOOP MAKER AND PHYSICIAN/PROVIDER WITH ANY CHANGE IN CONDITION.] [...] GO TO EMERGENCY ROOM FOR HEAD CT. [facility] CALLED AND PATIENT TRANSPORTED TO [facility], MD OFFICE NOTIFIED. PATIENT WILL REQUIRE ADDITIONAL HOME PT VISITS IN ORDER TO MAXIMIZE CURRENT LEVEL OF FUNCTION AND INDEPENDENCE WHENEVER SHE IS ABLE TO TRANSITION BACK HOME PARTICULARLY GIVEN NEW FALL SUSTAINED. TELEPHONE CALL PLACED TO PICTURE FRAMES INSPECTOR TRISHA WHITE OT REGARDING EVENTS DURING VISIT [...] GO TO EMERGENCY ROOM FOR HEAD CT. [facility] CALLED AND PATIENT TRANSPORTED TO [facility], OFFICE NOTIFIED. PATIENT WILL REQUIRE ADDITIONAL HOME PT VISITS IN ORDER TO MAXIMIZE CURRENT LEVEL OF FUNCTION AND INDEPENDENCE WHENEVER SHE IS ABLE TO TRANSITION BACK HOME PARTICULARLY GIVEN NEW FALL SUSTAINED. TELEPHONE CALL PLACED TO PICTURE FRAMES INSPECTOR TRISHA WHITE OT REGARDING EVENTS DURING VISIT [...] CARE WILL BE ESTABLISHED THAT MEETS PATIENT'S [facility] NEEDS AND INCLUDES PATIENT GOAL FOR HOME [...] End Date/Time Encounter Type Admission Type Attending [facility] Department Encounter ID Discharge Date Discharge Status Discharge Condition Discharge Reason Percent Goals Met 2025-02-24 00:00:00 2025-04-24 00:00:00 Outpatient RECERTIFIC ATION JOAQUIM LOZADA [facility] [id number] 2.17
--- OUTSIDE RECORDS SUMMARY | 2025-03-30 13:15 | XMS_ITS | Encounter Summary ---
Author Organization [employer] Address [address] [facility] [address] 7[address] [place] [address] Care Team Providers Care Veterinary Medicine Doctor Name Role Phone Shanice Jones MD Primary Care Provider [phone] Encounter Details Date Type Department Care Team (Latest Contact Info) Description 03/26/2025 Travel Social History Tobacco Use Types Packs/Day [...] 4:46 PM EDT Shanice Jones MD * Feeling down, depressed, or hopeless Answer Date of Assessment Author Several days 03/26/2025 4:46 PM EDT Shanice Jones MD * Trouble falling or staying asleep, or sleeping too much Answer Date of Assessment Author Several days 03/26/2025 4:46 PM EDT Shanice Jones MD * Feeling tired or having little energy Answer Date of Assessment Author Several days 03/26/2025 4:46 PM ESET Shanice Jones MD * Poor appetite or overeating Answer Date of Assessment Author Not at all 03/26/2025 4:46 PM ESET Shanice Jones MD * Feeling bad about yourself - or that you are a failure or have let yourself or your family down Answer Date of Assessment Author Several days 03/26/2025 4:46 PM ESET Shanice Jones MD * Trouble concentrating on things, such as reading the newspaper or watching television Answer Date of Assessment Author Not at all 03/26/2025 4:46 PM ESET Shanice Jones MD * Moving or speaking so slowly [...] Author Not at all 03/26/2025 4:46 PM EDT Shanice Jones MD * Patient Health Questionnaire-9 Score Answer Date of Assessment Author 6 03/26/2025 4:46 PM EDT Shanice Jones MD * How difficult have these problems made it for you to do your work, take care of things at home, or get along with other people? Answer Date of Assessment Author Somewhat difficult 03/26/2025 4:46 PM EDT Shanice Davidson MD documented as of this encounter Plan of Treatment Not on file documented as of this encounter Visit Diagnoses Not on filedocumented in this encounter Additional Health Concerns Assessment Noted Time PHQ-9 Depression Total Score: 6 03/26/20 25 4:46 PM EDT documented as of this encounter Care Teams Veterinary Medicine Doctor Relationship Specialty Start Date End Date Shanice Jones MD [address] [place] [address] PCP - General Family Medicine 12/22/20 Cary Alonzo Tangled Yarn WorkerFamily Court Justice 08/26/24 [facility] 12/26/24 documented as of this encounter
--- OUTSIDE RECORDS SUMMARY | 2025-03-30 13:15 | XMS_ITS | Encounter Summary ---
Author Organization [employer] Address [address] [facility] 7t [place] [address] Care Team Providers Care Green Building Materials Distributor Name Role Phone Shanice Jones MD Primary Care Provider [phone] Reason for Visit * Reason Onset Date Comments Med Refill 02/14/2024 Encounter Details Date Type Department Care Team ([facility] st Contact Info) Description 02/14/2024 Telephone [facility] MEDICINE [address] [place], [place] [phone] Shanice Jones MD [address] [place] [address] Med Refill Social History Tobacco Use Types [...] EDT Patient has not received Clonazepam from [facility] provider. She has been receiving from Oliverio Perales [address] [place] [address], TC via P/I#[id number], reviewed with patient the above information and advised to call Dr Perales. Patient stated she understood. * Telephone Encounter - Nava Carmichael - 02/14/2024 11:42 AM EDT TC from pt requesting medication refill. Medications needing refill : clonazePAM (KlonoPIN) 1 MG tablet To be sent to: [facility] Pharmacy documented in this encounter Plan of Treatment Not on file documented as of this encounter Visit Diagnoses Not on filedocumented in this encounter Care Teams Green Building Materials Distributor Relationship Specialty Start Date End Date Shanice Jones MD [address] [place] [address] PCP - General Family Medicine 12/22/20 Cary Alonzo Shrimp PickerBilingual Speech Therapist 08/26/24 Himanshu Hayes 12/26/24 documented as of this encounter
--- OUTSIDE RECORDS SUMMARY | 2025-03-30 13:15 | XMS_ITS | Encounter Summary ---
Author Organization [employer] Address [address] [facility] 7t [place] [address] Care Team Providers Care Reinforcing Steel Worker Name Role Phone Shanice Jones MD Primary Care Provider [phone] Reason for Referral * Consultation (Routine) - Closed Specialty Diagnoses / Procedures Referred By Contdea t Referred To Contact Rheumatology Diagnoses Spinal arthritis Shanice Jones MD [address] [place] [address] Phone: tel: fax: [facility] [address] [place] [address] Phone: tel: fax: Referral ID Status Reason Start Date Expiration Date V isits Requested Visits Authorized [id number] Closed Specialty Services Required 04/03/2024 04/03/2025 1 1 Encounter Details Date Type Department Care Team (Late st Contact Info) Description 04/03/2024 Orders Only [facility] MEDICINE [address] [place], [place] [phone] Shanice Jones MD [address] [place], [place] [phone] Spinal arthritis (Primary Dx) Social History Tobacco [...] as of this encounter Plan of Treatment Scheduled Referrals Name Type Priority Associated Diagnoses [...] EDT) Sodium 140 135 - 145 mmol/L [facility] Potassium 4.2 3.3 - 5.1 mmol/L [facility] Chloride 105 96 - 108 mmol/L [facility] Carbon Dioxide 26 22 - 29 mmol/L [facility] Anion Gap 13 12 - 20 [facility] Urea Nitrogen (BUN) 17(H) 9 - 16 mg/dL [facility] Creatinine, Serum 0.84 0.5 - 1.4 mg/dL [facility] Creatinine Clr Calc Pharmacy 75.7 [facility] Comment:Provided height and weight: 160.02 cm,87.543 kg.eGFR (calculated from the MDRD study equation) and eCrCl(calculated from the Cockcroft-Gault equation) are based ondifferent parameters and may not yield comparable results.If eCrCl result is absurd, please check patient'sheight/weight. Estimated Glomerular Filt Rate >60 [facility] Comment:NOTE: For -Am erican individuals, multiply the result by 1.210.Chronic Kidney Disease: Estimated GFR < 60 mL/min/1.61z0Ugkygy Kidney Disease: Estimated GFR < 15 mL/min/1.73m2 Glucose 99 60 - 115 mg/dL [facility] Calcium 10.6(H) 8.4 - 10.2 mg/dL [facility] Bilirubin, Total 1.3(H) 0.0 - 1.0 mg/dL [facility] Aspartate Amino Transferase 52(H) 5 - 31 U/L [facility] Alanine Aminotransferase 45(H) 0 - 31 U/L [facility] Total Protein 7.7 6.5 - 8.0 g/dL [facility] Albumin Level 4.3 3.5 - 5.0 g/dL [facility] Alkaline Phosphatase 130(H) 39 - 117 U/L [facility] 06/15/2024 4:43 PM EDT 06/15/2024 4:47 PM EDT us Generic External Data Provider LAB BLOOD ORDERAB LES Final Result [facility] [address] [place] [address] [phone] * Partial Thromboplastin Time, Activated (APTT) (06/15/2024 4:43 PM EDT) Partial Thromboplastin Time 28.6 26.0 - 36.8 SEC [facility] Comment:For information rega rding the monitoring of direct thrombininhibitors, please refer to Pharmacy. 06/15/2024 4:43 PM EDT 06/15/2024 4:47 PM EDT Generic External Data Provider LAB BLOOD ORDERAB LES Final Result Performing Organization Address [facility] Co de Phone Number [facility] [address] [place] [address] [phone] * Prothrombin Time-INR (06/15/2024 4:43 PM EDT) Prothrombin Time 12.2 11.1 - 13.3 SEC [facility] INTERNATIONAL NORM RATIO 1.0 0.9 - 1.1 [facility] Comment:INTERNATIONAL NORMAL IZED RATIO (INR) [...] ORDERAB LES Final Result Performing Organization Address [facility] Co de Phone Number [facility] [address] [place] [address] [phone] * (ABNORMAL) CBC auto differential (06/15/2024 4:43 PM EDT) White Blood Count 8.1 4.8 - 10.8 X10*3/uL [facility] Red Blood Count 4.16(L) 4.20 - 5.50 X10*6/uL [facility] Hemoglobin 11.5(L) 12.0 - 16.0 g/dl [facility] Hematocrit 36.0(L) 37.0 - 47.0 % [facility] Mean Corpuscular Volume 86.5 80.0 - 98.0 fL [facility] Mean Corpuscular Hemoglobin 27.6 27.0 - 33.0 pg [facility] Mean Corpuscular HGB Conc 31.9 31.0 - 35.0 g/dl [facility] Red Cell Distribution Width 17.1(H) 11.0 - 16.0 % [facility] Platelet Count 105(L) 160 - 400 X10*3/uL [facility] Mean Platelet Volume 9.8 9.4 - 12.3 fL [facility] Neutrophils Percent Auto 56.5 45 - 73 % [facility] Imm Gran Pct Auto 0.2 0.0 - 0.4 % [facility] Lymphocytes Percent Auto 32.4 20 - 40 % [facility] Monocytes Percent Auto 6.8 2 - 11 % [facility] Eosinophils Percent Auto 3.2 0 - 4 % [facility] Basophils Percent Auto 0.9 0 - 2 % [facility] NRBC Pct Auto 0.0 0.0 - 0.2 /100WBC [facility] Neutrophils Absolute Auto 4.6 2.0 - 8.3 x10*3/uL [facility] Imm Gran Abs Auto 0.02 0.00 - 0.03 X10*3/uL [facility] Lymphocytes Absolute Auto 2.6 1.2 - 4.9 X10*3/uL [facility] Monocytes Absolute Auto 0.6 0.1 - 1.2 X10*3/uL [facility] Eosinophils Absolute Auto 0.3 0.0 - 0.4 X10*3/uL [facility] Basophils Absolute Auto 0.1 0.0 - 0.2 X10*3/uL [facility] NRBC Abs Auto 0.000 0.0 - 0.012 X10*3/uL [facility] 06/15/2024 4:43 PM EDT 06/15/2024 4:47 PM EDT us Generic External Data Provider LAB BLOOD ORDERAB LES Final Result Performing Organization Address City/State/[facility] Co de Phone Number [facility] [address] [place] [address] [phone] documented in this encounter Visit Diagnoses Diagnosis Spinal arthritis- Primary documented in this encounter Care Teams Reinforcing Steel Worker Relationship Specialty Start Date End Date Shanice Jones MD [address] [place] [phone] PCP - General Family Medicine 12/22/20 Cary Alonzo Assurance AnalystMainspring Strip Inspector 08/26/24 [facility] 12/26/24 documented as of this encounter
== END 2025-03-30 12:09 | disposition home or self-care (01) ==
LOC: HO.HHCX 12:08
PROVIDERS: Visit Provider General Practice
DX: M54.2 Cervicalgia (principal); M79.622 Pain in left upper arm; W19.XXXD Unspecified fall, subsequent encounter
CPT/HCPCS: 72040; 73060

== ENCOUNTER → 2025-03-30 12:08 | Outpatient (BNV) | payer MEDICAID, SELFPAY | PROVIDERS: Visit Provider Radiology Diagnostic Radiology | DX: M54.2 Cervicalgia (principal); M79.622 Pain in left upper arm; W19.XXXA Unspecified fall, initial encounter | CPT/HCPCS: 72040; 73060 ==

== ENCOUNTER 2025-04-13 15:29 | Outpatient (AMB) | payer MEDICAID, SELFPAY ==
[2025-04-13 15:30] VITALS: BP 130/68; PULSE 70; O2SAT 96; BMI 29.1
--- NOTE | 2025-04-13 15:30 | MHC.OFFVIS ---
Vital Signs 04/13/25 15:30 Height 5 ft 3 in Weight 164 lb 3.91 oz BMI 29.1 BP 130/68 Blood Pressure Location Rt brachial Position Sitting Pulse 70 Pulse Source Pulse Oximeter Pulse Oximetry (%) 96 Oxygen Delivery Method Room Air Intake Visit Reasons: Hemoptysis Allergies latex [LATEX] Allergy (Intermediate, Verified 04/13/25 15:34) ITCH/RASH Penicillins Allergy (Intermediate, Verified 04/13/25 15:34) RASH magnesium Allergy (Verified 04/13/25 15:34) Palpitations milk Allergy (Verified 04/13/25 15:34) stomach pain, red rash eggs Allergy (Uncoded 10/01/24 14:12) stomach pain HPI Comments Details: The patient is a 59-year-old woman with a known history of diabetes and gastroparesis and history of asthma. She has been on Advair 500 for many years. She does have a rescue inhaler that she uses on a daily basis. She has been developing worsening shortness of breath with activity. Moderate severity. Does get better with rest. She also has a cough that is sometimes gags her. Pulmonary evaluation standpoint she did undergo pulmonary function studies back about a month ago demonstrating some small airways disease but otherwise no obstructive nor restrictive ventilatory defects. In addition to that she had a full cardiac workup with an echocardiogram and also a cardiac nuclear stress test. Those were okay per report. In the meantime she has been struggling with her gastroparesis and reflux disease. The followed closely by GI. Indeed she may have a component of micro aspirations as she describes regurgitation while she is sleeping the sometimes comes on her nose. In addition to that she is on lisinopril for her blood pressure and also for likely renal protection. While I was evaluating the patient appears that she has a tremor. She has been on Reglan. She does take a small dose of Reglan but with the tremor will be crucial to take her off it in case she does develop irreversible tremors. Therefore, we talked about other promotility agents that she can use the potentially can help her lungs as well. She is willing to try the azithromycin. However she does use SSRI so we have to check an EKG to make sure that her QT is stable. 10/02/2021 the patient is here for a pulmonary follow-up visit. Since we last spoke she is doing a little better. She is tolerating the Symbicort well. Her breathing has improved. She still has coughing episodes. Rgwy-xx-[id number] severity. And has to do with her reflux disease. We had to switch her from the Reglan to azithromycin for promotility due to her tremors. She continues to have some tremors but hopefully they will subside. She needs to get an EKG to assess her QT hopefully she can do that in the coming weeks. in the meantime she continues with the reflux diet. Again I emphasized that she needs to sleep elevated. However she cannot sleep supine. I did recommend she get risers for the head of the bed so she can sleep on her side and still maintain the head of bed elevated. the patient did have a chest x-ray and also blood work which we reviewed. 09/03/2022 the patient is here for a pulmonary follow-up visit. The patient still has multiple complaints. She has been coughing more. She states that she was coughing up some blood recently. however, none in the last few days. Denies any fevers or chills. Hard to know for sure if he coughs up the bladder if he vomited. She states that it was mixed in with some tissue or food. The patient does have significant gastroparesis. She has responded well to the azithromycin 3 times a week as a promotility agent. Initially I did recommend she stop it and then she became concerned because the medication has been helping. Patient understands that it can affect her QT conduction and therefore she needs to have an EKG she is going to continue the medicine. We talked about the other promotility agents but, she would tolerate regular due to her significant tremors. The patient has been sleeping on the sofa because she cannot sleep in her bed. She has significant snoring. The patient does wake up tired even after a full night's sleep. Her Hollywood score is elevated 13/24. The patient needs to undergo home sleep study at this time. She continues her respiratory therapy with good effect. The patient will benefit from a nebulizer machine in order to better administered the respiratory medications and provide bronchopulmonary hygiene to clear mucus production. prior to leaving today from the hospital to undergo a chest x-ray to make sure there is no and developing at this time if she does have an abnormal chest x-ray I will call her in order to request a CT scan of the chest. 11/16/2022 the patient is here for pulmonary follow-up visit. The patient still having some difficulty with headaches in addition to difficulty sleeping. The patient did have elevated daytime drowsiness with an elevated Hollywood score. Although her sleep study did not demonstrate significant sleep apnea. The patient does have underlying obstructive airway disease. A possibly the patient has significant nocturnal hypoxia. I will go ahead and perform an overnight oximetry at this time. If the patient qualifies and will start her on oxygen nighttime. She does continue to use respiratory therapy with good effect. Denies any recent exacerbations. Denies any further hemoptysis. 02/18/2023 the patient is here for a pulmonary follow-up visit. She still complaining off her cough and also hemoptysis. Is typically that be mucus is blood tinged. Usually the blood is mixed in with sputum. Lgzp-gz-pobvnuth severity. Sometimes she gags when their own mucus and she needs to make CT clear remove the mucus out of her throat with her fingers. She does have issues with her swallow. The patient sometimes cannot protect her swallow. She did have a modified barium swallow back in 2020 that demonstrated some anomalies but no obvious penetration into her larynx. In view of the recurrent hemoptysis the patient did have a chest x-ray without any acute disease. Will go ahead and request a CT scan to further address the issue. In regards her issues with her secretions we did talk about a bronchoscopy once we have the CT scan in order to further address her airway issues gets in deep cultures to make sure she does not have a smoldering infection and make sure she is not does not have an endobronchial lesion that is causing the intermittent bleeding. Will have her follow-up after the CT scan a bronchoscopy at this time. She is using the oxygen at nighttime with good effect. She is planning a trip to [place]. I did recommend she call the [employer] to talked about options about using the oxygen when she arrives to her destination. 04/04/2023 The patient is here for a pulmonary follow up visit. The patient underwent a bronchoscopy. + evidence of tracheomalecia, moderate to severe. Her cultures were also positive for MRSA. The patient was started on Bactrim. Her cough is better. Has been complaining or sore throat she does have thrush right now. The patient does have daytime drowsiness. Hollywood score is elevated, the 12/24. The patient does use oxygen at nighttime for nocturnal hypoxia. Therefore will request an in-lab sleep study to address the question sleep apnea in to starting CPAP therapy. I do believe the positive airway pressure therapy will also help with her tracheomalacia. The patient needs better mucus clearance specially with severe tracheomalacia. Will provide with an Acapella valve to help with mucus clearance and provide good pulmonary hygiene. 07/26/2023 the patient is here for a pulmonary follow-up visit. Since we last spoke the patient did have a in-lab sleep study. We did review the results. The patient had a very limited study as she had a hard time sleeping. She did desaturate requiring the oxygen. Although her AHI was only 3. The patient did not qualify for CPAP. I do believe that this was a very poor study from her and that we will have to help with her sleep hygiene and then consider repeating the study. The patient has significant tracheobronchomalacia and also has significant daytime drowsiness. Hollywood still elevated 09/03. I do believe she will benefit from CPAP. Therefore, will work on her sleep and then consider repeating the sleep study the next time she arise. Patient also is using oxygen but it does fall off and sometimes causes significant dryness. She also been to try a oxygen mask. I will request 1 from the [employer]. She continues use her respiratory therapy. The patient has some chest fullness at this time. Respiratory exam is relatively normal. However, she does have significant tracheomalacia and also has his history of Staph colonization. Therefore she will continue with chest physical therapy. If the patient develops worsening chest congestion she will call in will consider giving her additional therapies. 04/21/2024 the patient is here for a pulmonary follow-up visit. She had multiple complaints. The patient did have issues with epistaxis primarily from the right nostril. She has been concerned because she has had twice and it bothers her because she is concerned that she is going to start breathing and choke. The patient also has been concerned about her tracheomalacia feeling like her trachea is going to close up and she will be able to breathe in have a bad outcome. The patient has also been choking up with secretions. Hard to cough. Moderate severity. Will go ahead and start her on azithromycin to try to help her with chronic bronchitis and mucus secretions specially with the tracheobronchomalacia. She will try [place] for lubricating her nose with the hopes that that would reduce some of the epistaxis. She will continue to use the oxygen at nighttime as is been affecting beneficial. In the meantime the patient did have a CT scan of the chest back in 03/30/2023 demonstrating numerous pulmonary nodules measuring from 2-4 mm in size. The patient should get another CAT scan at this time to address those findings. She will follow-up with me after her CT scan. If the patient has any worsening issues prior to the visit she will call for an earlier assessment. 07/06/2024 the patient is here for hospital follow-up visit. The patient recently was evaluated at [facility] after having flu-like symptoms. The patient had a CT of the brain demonstrating a 7 mm cerebral aneurysm. Therefore she did have an evaluation from Neurosurgery and she did undergo endovascular coiling. The patient tolerated procedure well although she did become confused and delusional during the hospitalization. The patient has been using the oxygen at nighttime. She still has daytime drowsiness and also has headaches. Appears that she does have a degree of sleep apnea. Will go ahead and request an in-lab sleep study at this time. Specially with altered mental status. Respiratory mitchell patient seems to be doing okay. CT scan the patient did have a CT scan in June has not been officially read although I did review it with her. Also compared to her previous CT scan that she had a [facility] and also had [place] back last year. It appears that her nodular densities have decreased in size which is reassuring some of the nodules on cleared and other nodules appear to be stable. I do not see any new or concerning nodules. Therefore, the patient has been reassured although we still have to wait for the final read of the CT scan from Radiology. Will plan to repeat the CT scan in a year from now. She continues use her respiratory therapy with good effect. Will plan to follow-up after her in-lab sleep study. 10/01/2024 the patient is here for a pulmonary follow-up visit. Overall the patient is doing well. She is using the oxygen at nighttime. The oxygen therapy has been affecting beneficial. Although it is noisy. She does have daytime drowsiness with an Hollywood score that is elevated 10/04. The patient did undergo an in-lab sleep study. We did reviewed together. The patient appears to have underlying sleep apnea and will benefit from CPAP therapy. It appears that although the study was limited she does not need oxygen with her CPAP. Therefore, will go ahead and order APAP therapy that she can start this time. Once she gets situated with we can cancel the oxygen order. She also continues with respiratory therapy with good effect. Will have her return in 4 months to assess her response to CPAP. 02/02/2025 the patient is here for pulmonary follow-up visit. Overall the patient has been doing okay. She continues to have significant daytime drowsiness. She is developing headaches. She did have an elevated Hollywood score 10/04. Back in September 2024 we have sent a prescription for her to get started on APAP. And hold off on her oxygen. Based on this study she did not require oxygen along with the APAP. Although it is not clear what she has not received the APAP. She did come in today and she is concerned. At this time would like to start her on APAP without any oxygen. I did reassure her that we will then reassess to see if there is any oxygen needs but right now as it stands she does not need to use the oxygen with the APAP. She does have her from headaches therefore that is her major concern coming off the oxygen. We did reach out to the [employer] company to see if we can facilitate the approval in the delivery and the set up of the APAP since it has already been 3-4 months. 04/13/2025 the patient is here for a pulmonary follow-up visit. Overall the patient has been doing better. She did get her CPAP and she is doing very well. AHI is down to 0.7. CPAP therapy has been affecting beneficial she does use it for more than 4 hours a night. She does use a nasal mask and she does have some air leakage through the mouth. She may be better served with a fullface mask. Once we have 1 available will call her to see if she can try it and see if worse better for her. In the meantime the patient does have severe headaches and migraines and she can not tolerate a chinstrap. If she does decide to stay with a nasal mask we also talked about CPAP tape to close her mouth in case that will be of any use. She already has some dental pain and she has had some teeth the case which she has been very careful with her gingiva on her teeth and therefore the dry mouth can be a problem for her. In regards of her pulmonary nodules her last CT scan was back in the summer. Will plan to repeat the CAT scan in the summer in the follow-up afterwards. She is concerned about the nodules. I tried to reassure her that some of the nodules actually subsided in some of the other nodules are stable on small and will be Kelly difficult to remove. Right now there is no indication of any need for resection but will get the CAT scan in June and then will review together and see if there is anything that needs to be intervened on. [facility] Medical History Pulmonary nodules Asthma-COPD overlap syndrome Tracheomalacia Nocturnal hypoxia History of nephrolithiasis Tremors of nervous system Dyspnea PTSD (post-traumatic stress disorder) Delayed gastric emptying Chronic idiopathic constipation Post-op pain Acute hemorrhoid Increased BMI Anxiety History of uterine cancer Arthritis Back pain History of gastroenteritis Hypothyroid Diabetes GERD (gastroesophageal reflux disease) Depression Migraine Asthma History of tachycardia Tachycardia Coronary artery disease Hypertension Surgical History Hx of colonoscopy History of endoscopy History of section History of cardiac catheterization History of hysterectomy Family History Brother Stomach cancer Esophageal cancer Colon cancer Maternal Aunt History of breast cancer Paternal Aunt History of breast cancer Other Cancer Diabetes Heart problem Kidney problem Liver problem Thyroid condition Social History Household Members: Children Household Members Other:: lives with son Alcohol intake: never Patient Tobacco Use Status: Never used Tobacco Current occupational status: disabled Review of Systems Const Denies night sweats ENT Denies change in voice, Reports dysphagia, Denies lip swelling, Denies mouth pain, Reports nasal congestion, Reports nasal discharge and Denies tongue swelling Card Denies chest pain and Reports dyspnea on exertion Resp Denies change in phlegm color, Denies chest congestion, Reports cough, Denies hemoptysis, Denies excessive phlegm production and Reports dyspnea on exertion GI Denies abdominal pain, Reports dysphagia, Reports early satiety, Reports dyspepsia and Reports heartburn Musc Denies no additional complaints and Reports abnormal gait Neuro Denies Neuro-related abnormal movements, Reports abnormal gait and Reports paresthesias Psych Denies no additional complaints Omar/Lymph Denies easy bleeding and Denies lymphadenopathy Aller/Immun Denies lip swelling and Denies tongue swelling Physical Exam Vital Signs: Last Vital Signs Pulse 70 04/13/25 15:30 BP 130/68 04/13/25 15:30 Pulse Ox 96 04/13/25 15:30 Oxygen Delivery Method Room Air 04/13/25 15:30 BMI result Body Mass Index 29.1 Const General: alert HEENT General nose exam: Abnormal external nose present and Nasal discharge present Eyes Pupils: Equal, round and reactive pupils present Neck Neck: Yes normal visual inspection, Yes full ROM and Yes no lymphadenopathy Chest Chest palpation & inspection: normal inspection of the chest Resp Auscultation: diminished lung sounds Cardio Rate: regular rate Rhythm: regular rhythm Heart sounds: S1 normal heart sound present and S2 normal heart sound present GI Palpation (GI): Soft to palpation and nontender Auscultation: normal bowel sounds General: Yes no CVA tenderness Back/Spine/Pelvis Back: no CVA tenderness Skin General skin exam: rashes and/or lesions noted Neuro Cranial nerves: Yes Equal, round and reactive pupils present Assessment & Plan Assessment & Plan (1) JENNYFER (obstructive sleep apnea): Code(s): G47.33 - Obstructive sleep apnea (adult) (pediatric) Category: Medical (2) Dyspnea: Code(s): R06.00 - Dyspnea, unspecified Category: Medical Qualifiers: Dyspnea type: dyspnea on exertion Qualified Code(s): R06.09 - Other forms of dyspnea (3) GERD (gastroesophageal reflux disease): Code(s): K21.9 - Gastro-esophageal reflux disease without esophagitis Category: Medical Qualifiers: Esophagitis presence: without esophagitis Qualified Code(s): K21.9 - Gastro-esophageal reflux disease without esophagitis (4) Tracheomalacia: Code(s): J39.8 - Other specified diseases of upper respiratory tract Category: Medical (5) Nocturnal hypoxia: Code(s): G47.34 - Idiopathic sleep related nonobstructive alveolar hypoventilation Category: Medical (6) Pulmonary nodules: Code(s): R91.8 - Other nonspecific abnormal finding of lung field Category: Medical Plan cont APAP on RA. Will tril FM when able, AHI 0.7 CPT with acapella valve and nebulizer repeat CT chest in 06/2025 flexeril as needed for neck pain F/U 3-4 months Orders: Orders CT chest wo IV con 2 Months R91.8 - Other nonspecific abnormal finding of lung field Coding Level of Care Code Est Pt Level 4 (46354) Diagnoses JENNYFER (obstructive sleep apnea) G47.33 Dyspnea on exertion R06.09 Dyspnea type: dyspnea on exertion Gastroesophageal reflux disease without esophagitis K21.9 Esophagitis presence: without esophagitis Tracheomalacia J39.8 Nocturnal hypoxia G47.34 Pulmonary nodules R91.8 Time Spent (min) 17
== END 2025-04-13 16:01 | disposition home or self-care (01) ==
LOC: HO.HPS 15:30
PROVIDERS: PCP General Practice; Visit Provider Hospitalist
DX: G47.33 Obstructive sleep apnea (adult) (pediatric) (principal); R06.09 Other forms of dyspnea; K21.9 Gastro-esophageal reflux disease without esophagitis; J39.8 Other specified diseases of upper respiratory tract; G47.34 Idiopathic sleep related nonobstructive alveolar hypoventilation; R91.8 Other nonspecific abnormal finding of lung field
CPT/HCPCS: 99214

== ENCOUNTER → 2025-04-13 15:29 | Outpatient (BNVA) | payer MEDICAID, SELFPAY | PROVIDERS: PCP General Practice; Visit Provider Hospitalist | DX: G47.33 Obstructive sleep apnea (adult) (pediatric) (principal); R06.09 Other forms of dyspnea; G47.34 Idiopathic sleep related nonobstructive alveolar hypoventilation; K21.9 Gastro-esophageal reflux disease without esophagitis; R91.8 Other nonspecific abnormal finding of lung field; J39.8 Other specified diseases of upper respiratory tract | CPT/HCPCS: 99212 ==

== ENCOUNTER 2025-05-03 15:07 | Outpatient (REF) | payer MEDICAID, SELFPAY ==
--- NOTE | ~2025-05-03 | US_ITS ---
EXAMINATION: US EXTRACRANIAL CAROTID DUPLEX, BILATERAL CLINICAL INFORMATION: Frequent falls. COMPARISON: Correlated to CT angiogram head and neck dated June 15, 2024. TECHNIQUE: Real-time ultrasound and Doppler techniques (integrating B-mode 2-D vascular images, Doppler spectral analysis and color-flow Doppler imaging) were utilized to interrogate the extracranial carotid arteries, the vertebral arteries and proximal subclavian arteries bilaterally. The degree of stenosis is determined by criteria similar to NASCET. FINDINGS: Right Side: 1. There is no atherosclerotic plaque seen in the bifurcation/proximal ICA region. 2. The common carotid artery PSV proximally is 84 cm/s and distally 65 cm/s. 3. The proximal internal carotid artery velocities are 49 cm/s systolic and 15 cm/s diastolic. 4. The proximal external carotid artery PSV is 99 cm/s. 5. The vertebral artery shows antegrade flow. 6. The subclavian artery waveforms are triphasic. ICA/CC ratio: 0.58. Left Side: 1. There is no atherosclerotic plaque seen in the bifurcation/proximal ICA region. 2. The common carotid artery PSV proximally is 104 cm/s and distally 83 cm/s. 3. The proximal internal carotid artery velocities are 77 cm/s systolic and 28 cm/s diastolic. 4. The proximal external carotid artery PSV is 110 cm/s. 5. The vertebral artery shows antegrade flow. 6. The subclavian artery waveforms are triphasic. ICA/CCA ratio: 0.74. US/US carotid duplex BI IMPRESSION: 1. RIGHT: No gross plaque. No hemodynamically significant stenosis by ultrasound criteria. 2. LEFT: No gross plaque. No hemodynamically significant stenosis by ultrasound criteria. Negative exam. Electronically signed by: Tomas Kathleen MD 05/03/2025 03:59 PM EDT
--- OUTSIDE RECORDS SUMMARY | 2025-05-03 16:39 | XMS_ITS | Clinical Summary ---
Author Organization [employer] Address [address] [facility] [address] [place] [address] Care Team Providers Care Manager Distribution Name Role Phone Shanice Jones MD Primary Care Provider [phone] Allergies Active Allergy Reactions Criticality Noted Date [...] Units under the skin at bedtime. Active zolpidem (Ambien) 10 MG tablet Take [...] under the skin every 3 (three) months. Active Easy Touch Pen [place] 31G X 6 MM miscIndication s:Type 2 diabetes mellitus treated with insulin ([facility]) USE FOUR TIMES DAILY [...] MOUTH EVERY MORNING 90 tablet 3 Active pregabalin (Lyrica) 200 MG capsule Take [...] by mouth Once per day. 90 capsule 2025 Active polyethylene glycol, PEG, 3350 (MiraLax) 17 GM/SCOOP powder Take 17 g by mouth Once per day. 527 g 2024 Active lidocaine (Xylocaine) 5 % ointment Apply topically if needed in the morning, at noon, and at bedtime (neck pain). 30 g 2025 Active QUEtiapine (SEROquel) 25 MG tablet TAKE 1 TABLET BY MOUTH AT BEDTIME NEEDED FOR SLEEP 30 tablet 11 Active sucralfate (Carafate) 1 g tablet TAKE 1 TABLET BY MOUTH EVERY TWELVE HOURS NEEDED FOR HEARTBURN 60 tablet 3 Active sucralfate (Carafate) 1 g tablet TAKE 1 TABLET BY MOUTH EVERY TWELVE HOURS NEEDED HEARTBURN 60 tablet 3 025 2024 Discontinued Hospital, Clinic, or Other Facility Administered Medication Ordered Dose Route Frequency Start Date End Date Status lidocaine (Xylocaine) 2 % injection 40 mgIndications:Cervicalgia 40 mg IJ Once 03/30/2025 Active Active Problems Problem Noted Date Diagnosed Date Frequent falls 03/31/2025 Fibromyalgia 01/21/2025 Cervicalgia 01/21/2025 Assessment & Plan (03/31/2025 9:58 AM EDT): Trigger point injection performed as described above. Imaging returned degenerative changes, will consider carotid ultrasound as well, due to patient's vascular profile. 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 Will extend PT-1 to her other providers [...] artery provides dominant supply to the right RECREATIONAL VEHICLE RESORT MANAGER.Nondominant right vertebral artery is diminutive throughout, not [...] (SGPT) 78 units/L (High) ,Ammonia, Venous 48 mole/L , -RUQ US RUQ 04/2024 :Echogenic liver [...] Pt has had difficult maintaining appointments at [facility], would like to come close to where she lives at [facility] Exercise counseling 02/13/2023 Left ankle sprain 11/20/2022 Assessment & Plan (02/13/2023 3:37 PM EDT): Continue followup with ortho and PT at [facility] Did gait training at PT as she says it is difficult to walk, even with a walker and complains of frequent falls Awaiting [facility] , which translates from Irish to braces Assessment & Plan (11/20/2022 10:28 AM EST): Continue followup with ortho and PT at [facility] Request gait training at PT as she says it is difficult to walk, even with a walker and complains of frequent falls Malignant neoplasm of endometrium 11/19/2022 Assessment & Plan (09/04/2024 12:53 PM EDT): No AUB currently Assessment & Plan (11/20/2022 10:25 AM EST): She is worried about reoccurance of neoplasm Will check CBC Ensure followup with edm operator onc No vaginal bleeding currently Ptosis of [...] use of insulin 10/18/2021 Overview (11/05/2024): Per Dr Potts, endo at [facility]: Fair control hemoglobin A1c 7.2% but [...] weekly -called px Trulicity is ready to package pick up -endocrinology apt 05/28/[address] Potts -PCP apt 05/29/2024 Assessment & Plan (01/20/2024 12:53 PM EDT): Followed by [facility] endocrinology Assessment & Plan (11/20/2022 10:27 AM EST): Followed by 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 If she can discontinue Plavix [...] Plan (02/13/2023 3:40 PM EDT): [facility] published guidelines about coverage specifically state that [...] connected to a therapist and psychiatrist at [facility]. She meets with her therapist (Domi Palma) on Wednesdays at 10 am and every three months with psychiatrist (Dr. Perales). Son reports main concern is patient does not use her walker and has fallen multiple times. This has led to the numerous ED visits. At this time Lindsey Brianna Lofton meets criteria for Visit Diagnoses: Problem [...] Encounters Date Type Department Care Team Description 04/23/2025 Refill [facility] [address] [place] [phone] Shanice Jones MD 04/01/2025 Refill [facility] [address] [place] [phone] Shanice Jones MD 03/30/2025 9:00 AM EDT Procedure Visit [facility] [address] [place] [phone] Shanice Jones MD Cervicalgia (Primary Dx); Frequent falls 03/30/2025 Travel 03/30/2025 Telephone [facility] [address] [place] [phone] Shanice Jones MD No Show 03/29/2025 Telephone [facility] [address] [place] [address] Shanice Jones MD Chart Prep 03/26/2025 3:30 PM EDT Office Visit [facility] [address] [place] [phone] Shanice Jones MD Fall, subsequent encounter (Primary Dx); Type 2 diabetes mellitus with other specified complication, with long-term current use of insulin (CMS/[facility]); Dietary counseling; Exercise counseling; Overweight; Cervicalgia 03/26/2025 Travel 03/25/2025 Telephone [facility] [address] [place] [phone] Shanice Jones MD chart prep 03/23/2025 Orders Only [facility] [address] [place] [address] Maurisio Reed MD 03/22/2025 Refill [facility] [address] [place] [address] Shanice Jones MD 03/19/2025 Patient Outreach [address] [phone] Shanice Jones MD Pre-visit Planning ((Unable to reach for PVP screening, LVM)) 03/15/2025 Refill [facility] [address] [place] [phone] Shanice Jones MD 02/24/2025 Patient Outreach [address] [phone] Shanice Jones MD Care Coordination ([facility]- ED status check) 02/24/2025 Patient Outreach [facility] [address] [place] [phone] Shanice Jones MD 02/16/[address] [phone] Shanice Jones MD Saturday Chronic pain group 02/16/2025 Refill [facility] [address] [place] [phone] Shanice Jones MD 02/09/2025 9:15 AM EDT Procedure Visit [address] [address] Shanice Jones MD Trapezius muscle spasm (Primary Dx); Spinal arthritis 02/09/2025 Travel from Last 3 Months Immunizations Immunization [...] 67 03/30/2025 11:38 AM EDT Temperature 36 C (96.8 F) 03/30/2025 11:38 AM EDT Respiratory Rate 20 [...] Screening 10/24/2023 HPV/Cotest 10/24/2023 10/24/2018 COVID-19 Vaccine ( season) 2024 12/01/2021, 01/25/2021 SDOH Screening 01/09/2025 01/10/2024 Diabetes: Urine Protein Screening 06/05/2025 06/05/2024, 10/28/2023, 10/10/2022, Additional history exists Lipid Panel 06/05/2025 06/05/2024, 01/09, 01/02/2023, Additional history exists Mammogram 06/10/2025 06/10/2024, 05/13, 07/04/2020, Additional history exists Influenza Vaccine (Season Ended) 2025 08/24/2022, 10/02/2021, 10/18/2020, Additional history exists FIT 07/28/2025 07/28/2024 FOBT 07/28/2025 07/28/2024 Diabetes: Hemoglobin A1C 09/26/2025 025, 02/16/2025, 12/01/2024, Additional history exists Depression Screening 03/26/2026 03/26/2025, 03/26/20 25 Tobacco Screening 03/31/2026 03/31/2025 DTaP/Tdap/Td Vaccines (3 - Td or Tdap) [...] Procedure Name Priority Date/Time Associated Diagnosis Comments VASC US CAROTID ARTERY DUPLEX BILATERAL Routine 05/03/2025 3:22 PM EDT Cervicalgia Frequent falls XR CERVICAL SPINE 3V Routine 03/30/2025 12:09 PM EDT XR HUMERUS LEFT Routine 03/30/2025 12:08 PM EDT Fall, subsequent encounter GENERAL Routine 03/30/2025 11:48 AM EDT Cervicalgia POCT GLUCOSE Routine 03/26/2025 4:07 PM EDT Type 2 diabetes mellitus with other specified complication, with long-term current use of insulin (CMS/HCC) GENERAL Routine 02/09/2025 10:05 AM EDT Trapezius muscle spasm POCT GLYCATED HEMOGLOBIN, TOTAL Routine 11/03/2024 11:39 [...] of insulin (CMS/HCC) HM PAP/HPV Routine 10/24/2018 from Last 3 Months or Most Recently Relevant to Health Maintenance Results * Vascular US carotid artery duplex bilateral (05/03/2025 3:22 PM EDT) 05/03/2025 3:22 PM EDT [facility] - 05/03/2025 4:02 PM EDT [address] [address] Ultrasound Report Signed Patient: Lindsey Wilson MR#: [id number] : 1965 Acct:[id number] Age/Sex: 59 / F ADM Date: 05/03/25 Loc: HO.US Attending Dr: Shanice Jones MD Ordering Physician: Shanice Jones Date of Service: 05/03/25 Procedure(s): US carotid duplex BI Accession Number(s): [id number] cc: Shanice Jones EXAMINATION: US EXTRACRANIAL CAROTID DUPLEX, BILATERAL CLINICAL INFORMATION: Frequent falls. COMPARISON: Correlated to CT angiogram head and neck dated June 15, 2024. TECHNIQUE: Real-time ultrasound and Doppler techniques (integrating B-mode 2-D vascular images, Doppler spectral analysis and color-flow Doppler imaging) were utilized to interrogate the extracranial carotid arteries, the vertebral arteries and proximal subclavian arteries bilaterally. The degree of stenosis is determined by criteria similar to NASCET. FINDINGS: Right Side: 1. There is no atherosclerotic plaque seen in the bifurcation/proximal ICA region. 2. The common carotid artery PSV proximally is 84 cm/s and distally 65 cm/s. 3. The proximal internal carotid artery velocities are 49 cm/s systolic and 15 cm/s diastolic. 4. The proximal external carotid artery PSV is 99 cm/s. 5. The vertebral artery shows antegrade flow. 6. The subclavian artery waveforms are triphasic. ICA/CC ratio: 0.58. Left Side: 1. There is no atherosclerotic plaque seen in the bifurcation/proximal ICA region. 2. The common carotid artery PSV proximally is 104 cm/s and distally 83 cm/s. 3. The proximal internal carotid artery velocities are 77 cm/s systolic and 28 cm/s diastolic. 4. The proximal external carotid artery PSV is 110 cm/s. 5. The vertebral artery shows antegrade flow. 6. The subclavian artery waveforms are triphasic. ICA/CCA ratio: 0.74. US/US carotid duplex BI IMPRESSION: 1. RIGHT: No gross plaque. No hemodynamically significant stenosis by ultrasound criteria. 2. LEFT: No gross plaque. No hemodynamically significant stenosis by ultrasound criteria. Negative exam. Electronically signed by: Tomas Kathleen MD 05/03/2025 03:59 PM EDT RP Dictated By: Tomas Michele MD Signed By: <Electronically signed by Tomas Hutchinson MD in OV> 05/03/25 1559 DD/ 1522 TD/TT: 05/03/25 1532 Ged Teacher: Procedure Note Donotuseinterpreter, Image - 05/03/2025 [place] [address] Ultrasound Report Signed Patient: Lindsey Wilson MR#: [id number] : 1965Acct:[id number] Age/Sex: 59 / FADM Date: 05/03/25 Loc: HO.US Attending Dr: Shanice Jones MD Ordering Physician: Shanice Jones Date of Service: 05/03/25 Procedure(s): US carotid duplex BI Accession Number(s): [id number] cc: Shanice Jones EXAMINATION: US EXTRACRANIAL CAROTID DUPLEX, BILATERAL CLINICAL INFORMATION: Frequent falls. COMPARISON: Correlated to CT angiogram head and neck dated June 15, 2024. TECHNIQUE: Real-time ultrasound and Doppler techniques (integrating B-mode 2-D vascular images, Doppler spectral analysis and color-flow Doppler imaging) were utilized to interrogate the extracranial carotid arteries, the vertebral arteries and proximal subclavian arteries bilaterally. The degree of stenosis is determined by criteria similar to NASCET. FINDINGS: Right Side: 1. There is no atherosclerotic plaque seen in the bifurcation/proximal ICA region. 2. The common carotid artery PSV proximally is 84 cm/s and distally 65 cm/s. 3. The proximal internal carotid artery velocities are 49 cm/s systolic and 15 cm/s diastolic. 4. The proximal external carotid artery PSV is 99 cm/s. 5. The vertebral artery shows antegrade flow. 6. The subclavian artery waveforms are triphasic. ICA/CC ratio: 0.58. Left Side: 1. There is no atherosclerotic plaque seen in the bifurcation/proximal ICA region. 2. The common carotid artery PSV proximally is 104 cm/s and distally 83 cm/s. 3. The proximal internal carotid artery velocities are 77 cm/s systolic and 28 cm/s diastolic. 4. The proximal external carotid artery PSV is 110 cm/s. 5. The vertebral artery shows antegrade flow. 6. The subclavian artery waveforms are triphasic. ICA/CCA ratio: 0.74. US/US carotid duplex BI IMPRESSION: 1. RIGHT: No gross plaque. No hemodynamically significant stenosis by ultrasound criteria. 2. LEFT: No gross plaque. No hemodynamically significant stenosis by ultrasound criteria. Negative exam. Electronically signed by: Tomas Kathleen MD 05/03/2025 03:59 PM EDT RP Dictated By: Tomas Michele MD Signed By: <Electronically signed by Tomas Hutchinson MDin OV> 05/03/25 1559 DD/ 1522 TD/TT: 05/03/25 1532 Ged Teacher: us Shanice Jones MD CV VASCULAR PROCEDURES Final R esult [facility] [address] [place] [phone] * XR CERVICAL SPINE 3V (03/30/2025 12:09 PM EDT) Anatomical Region Laterality Modality Abdomen Radiographic Haylie ging 03/30/2025 12:0 9 PM EDT Narrative 03/30/2025 1:37 PM EDT [address] [address] XRay Report Signed Patient: Lindsey Wilson MR#: [id number] : 1965 Acct:[id number] Age/Sex: 59 / F ADM Date: 03/30/25 Loc: HO.HHCX Attending Dr: Shanice Jones MD Ordering Physician: Shanice Jones Date of Service: 03/30/25 Procedure(s): XR cervical spine 3V Accession Number(s): [id number] cc: Shanice Jones EXAMINATION: XR CERVICAL SPINE CLINICAL INFORMATION: PAIN COMPARISON: None available. TECHNIQUE: AP view cervical spine. Atlantoodontoid view. FINDINGS: Inadequate evaluation of the cervical spine. XR/XR cervical spine 3V IMPRESSION: Recommend lateral projection. Electronically signed by: Tomas Kathleen MD 03/30/2025 01:34 PM EDT RP Dictated By: Tomas Michele MD Signed By: <Electronically signed by Tomas Hutchinson MD in OV> 03/30/25 1334 DD/ 1209 TD/TT: 03/30/25 1258 Ged Teacher: Procedure Note Donotuseinterpreter, Image - 03/30/2025 [place] [address] XRay Report Signed Patient: Lindsey Wilson MR#: [id number] : 1965Acct:[id number] Age/Sex: 59 / FADM Date: 03/30/25 Loc: HO.HHCX Attending Dr: Shanice Jones MD Ordering Physician: Shanice Jones Date of Service: 03/30/25 Procedure(s): XR cervical spine 3V Accession Number(s): [id number] cc: Shanice Jones EXAMINATION: XR CERVICAL SPINE CLINICAL INFORMATION: PAIN COMPARISON: None available. TECHNIQUE: AP view cervical spine. Atlantoodontoid view. FINDINGS: Inadequate evaluation of the cervical spine. XR/XR cervical spine 3V IMPRESSION: Recommend lateral projection. Electronically signed by: Tomas Kathleen MD 03/30/2025 01:34 PM EDT RP Dictated By: Tomas Michele MD Signed By: <Electronically signed by Tomas Hutchinson MDin OV> 03/30/25 1334 DD/ 1209 TD/TT: 03/30/25 1258 Ged Teacher: us Shanice Jones MD IMG XR PROCEDURES Final Result * XR Humerus Left (03/30/2025 12:08 PM EDT) Anatomical Region Laterality Modality Upper Extremities, Humerus Left [facility] Imaging 03/30/2025 12:0 8 PM EDT Narrative 03/30/2025 1:30 PM EDT [address] [address] XRay Report Signed Patient: Lindsey Wilson MR#: [id number] : 1965 Acct:[id number] Age/Sex: 59 / F ADM Date: 03/30/25 Loc: ADAN Attending Dr: Shanice Jones MD Ordering Physician: Shanice Jones Date of Service: 03/30/25 Procedure(s): XR humerus LT Accession Number(s): [id number] cc: Shanice Jones EXAMINATION: XR HUMERUS LEFT HISTORY: pain after fall COMPARISON: There are no prior studies available for comparison. FINDINGS: AP and lateral views of the left humerus are submitted. Osseous mineralization is normal. There is no fracture or dislocation. The visualized shoulder and elbow joint spaces are preserved. The soft tissues are unremarkable. XR/XR humerus LT IMPRESSION: Unremarkable examination of the left humerus. Electronically signed by: Shekhar Cosme MD 03/30/2025 01:27 PM EDT Dictated By: Shekhar Cosme MD Signed By: <Electronically signed by Shekhar Cosme MD in OV> 03/30/25 1327 DD/ 1208 TD/TT: 03/30/25 1250 Ged Teacher: Procedure Note Donotuseinterpreter, Image - 03/30/[address] [address] XRay Report Signed Patient: Lindsey Wilson MR#: [id number] : 1965Acct:[id number] Age/Sex: 59 / FADM Date: 03/30/25 Loc: ADAN Attending Dr: Shanice Jones MD Ordering Physician: Shanice Jones Date of Service: 03/30/25 Procedure(s): XR humerus LT Accession Number(s): [id number] cc: Shanice Jones EXAMINATION: XR HUMERUS LEFT HISTORY: pain after fall COMPARISON: There are no prior studies available for comparison. FINDINGS: AP and lateral views of the left humerus are submitted. Osseous mineralization is normal. There is no fracture or dislocation. The visualized shoulder and elbow joint spaces are preserved. The soft tissues are unremarkable. XR/XR humerus LT IMPRESSION: Unremarkable examination of the left humerus. Electronically signed by: Shekhar Cosme MD 03/30/2025 01:27 PM EDT RP Dictated By: Shekhar Cosme MD Signed By: <Electronically signed by Shekhar Cosme MD in OV> 03/30/25 1327 DD/ 1208 TD/TT: 03/30/25 1250 Ged Teacher: Shanice Jones MD IMG XR PROCEDURES Final Result * Trigger Point Injection (03/30/2025 11:48 AM EDT) Narrative Shanice Jones MD - 03/30/2025 11:48 AM EDT Shanice Jones MD 03/31/2025 10:00 AM Trigger Point Injection Date/Time: 03/30/2025 11:48 AM Performed by: Shanice Jones MD Authorized by: Shanice Jones MD Confirmed correct patient, procedure, site, and patient consented: Yes Consent: Consent obtained: Verbal (pt written consent given 02/09/2025) Consent given by: Patient Procedure risks and benefits discussed: Yes Patient questions answered: Yes Patient agrees, verbalizes understanding, and wants to proceed: Yes [place] protocol: Procedure explained and questions answered to patient or proxy's satisfaction: yes Relevant documents present and verified: yes Test results available: yes Patient identity confirmed: Verbally with patient Indications: Indications: Uscle spasm Pre-procedure details: Procedure prep: alcohol pad. Sedation: Sedation type: None Anesthesia: Anesthesia method: None Procedure specific details: Points of maximal tenderness and muscle triggering palpated on the Left trapezius muscle, six points in total on the Left side. 0.3-0.5cc of lidocaine 2% without epi was injected into each point in a stellate manner. Post-procedure details: Procedure completion: Tolerated well, no immediate complications Shanice Jones MD IN CLINIC/BEDSIDE ORDERABLES F inal Result * POCT Glucose (03/26/2025 4:07 PM EDT) [...] 02/09/2025 10:05 AM EDT Shanice Jones MD 02/09/2025 10:10 AM Trigger Point injection Date/Time: 02/09/2025 10:05 AM Performed by: Shanice Jones MD Authorized by: Shanice Jones MD Consent: Consent obtained: Written Consent given by: Patient Procedure risks and benefits discussed: Yes Patient questions answered: Yes Patient agrees, verbalizes understanding, and wants to proceed: Yes [place] protocol: Procedure explained and questions answered to patient or proxy's satisfaction: yes Relevant documents present and verified: yes Patient identity confirmed: Verbally with patient Indications: Indications: Msucle spasm Pre-procedure details: Skin preparation: Antiseptic wash Sedation: Sedation type: None Anesthesia: Anesthesia method: None Procedure specific details: Palpated muscles of the trapezius and L deltoid in spasm, 12 points in total, washed with alcohol pad 70%, and then infiltrated in stellate manner with 0.3cc- 0.5cc lidocaine 2% without epi Post-procedure details: Procedure completion: Tolerated well, no immediate complications Shanice Jones MD IN CLINIC/BEDSIDE ORDERABLES F inal Result * Hm Colonoscopy (10/07/2024 10:40 AM EST) Colonoscopy Normal Normal Narrative Idalmis Huber - 10/07/2024 10:40 AM EST Recommended 10 years . see results scanned in school library media program director on 10/07/2024 us Historical Provider [facility] Edited Result - Final * BI Mammogram Screening Tomosynthesis Bilateral (06/10/2024 3:25 PM EDT) Anatomical Region Laterality Modality Breast Bilateral Mammography 06/10/2024 3:25 PM EDT Narrative 06/17/2024 11:18 AM EDT [facility] [place] [address] Mammography Report Signed Patient: Lindsey Wilson MR#: [id number] : 1965 Acct:[id number] Age/Sex: 59 / F ADM Date: 06/10/24 Loc: MAMMO Attending Dr: Shanice Jones MD Ordering Physician: Shanice Jones Results: 1Negative Date of Service: 06/10/24 Follow Up: 1 Year From Orig inal Mammogram Procedure(s): MM tomosynthesis screening BI Accession Number(s): [id number] cc: Shanice Jones EXAMINATION: MM SCREENING DIGITAL [...] in OV> 06/17/24 1114 DD/ 1525 TD/TT: Ged Teacher: Procedure Note Donotuseinterpreter, Image - 06/17/2024 [facility] [address] [place], [place] [address] Mammography Report Signed Patient: Lindsey Wilson MR#: [id number] : 1965Acct:[id number] Age/Sex: 59 / FADM Date: 06/10/24 [facility]: Shanice Jones MD Ordering Physician: Felix Jonesults: 1Negative Date of Service: 06/10/24Follow Up: 1 Year From Orig inal Mammogram Procedure(s): MM tomosynthesis screening BI Accession Number(s): [id number] cc: Shanice Jones EXAMINATION: MM SCREENING DIGITAL [...] in OV> 06/17/24 1114 DD/ 1525 TD/TT: Ged Teacher: us Shanice Jones MD IMG BI PROCEDURES Final Result * Albumin, Random Urine W/Creatinine (06/05/2024 11:45 AM EDT) Creatinine, Urine 148.96 mg/dL [facility] Microalbumin Urine 12.0 mg/L [facility] Microalbum Creatinine Ratio Ur 8.0 <30 ug/mg cr [facility] Comment:Albumin/Creatinine R atio Reference Ranges: Normal: < 30 ug/mg creatinine Microalbuminuria: 30 - 300 ug/mg creatinineClinical Albuminuria: > 300 ug/mg creatinine Urine (Urine, Random) 06/05/2024 11:45 AM EDT 06/05/2024 12:51 PM EDT us Shanice Jones MD LAB URINE ORDERABLES Final Res ult Performing Organization Address [facility]/ZIP Co de Phone Number [facility] [address] [place] [phone] * Hepatitis C Antibody with Reflex to HCV, RNA, Quantitative, Real-Time PCR (06/05/2024 11:45 AM EDT) Hepatitis C Antibody Nonreactive Nonreactive [facility] Comment:Antibodies to HCV no t detected; does not exclude early acuteHCV infection. Blood Venous blood specimen / Unknown 06/05/2024 11:45 AM EDT 06/05/2024 1:04 PM EDT us Gissel Machuca MD LAB BLOOD ORDERAB LES Final Result Performing Organization Address [facility]/ZIP Co de Phone Number [facility] [address] [place] [phone] * HIV-1/2 Antigen and Antibodies, Fourth Generation, with Reflexes (06/05/2024 11:45 AM EDT) HIV AB/AG Nonreactive Nonreactive [facility] Comment:HIV-1 p24 Ag and/or HIV-1/HIV-2 Ab not detected.A test result that is nonreactive does not exclude thepossibility of exposure to or infection with HIV-1 and/orHIV-2. Nonreactive results in this assay for individualswith prior exposure to HIV-1 and/or HIV-2 may be due toantigen and antibody levels that are below the limit ofdetection of this assay.The [employer] HIV Ag/Ab Combo assay result andsupplemental assay results should be interpreted inconjunction with the patient's clinical presentation,history and other laboratory results. If the results areinconsistent with clinical evidence, additional testing issuggested to confirm the result. Blood Venous blood specimen / Unknown 06/05/2024 11:45 AM EDT 06/05/2024 1:04 PM EDT us Gissel Machuca MD LAB BLOOD ORDERAB LES Final Result [facility] [address] [place] [phone] * (ABNORMAL) Lipid Panel, Standard (06/05/2024 11:45 AM EDT) Triglycerides 132 <150 mg/dL [facility] Comment:Desirable Triglyceri de: less than 150 mg/dLBorderline High Triglyceride 150-199 mg/dLHigh Triglyceride: 200-499 mg/dLVery High Triglyceride: greater than or equal to 5OO mg/dL Cholesterol 110 <200 mg/dL [facility] Comment:Desirable Cholestero l: less than 200 mg/dLBorderline High Cholesterol: 200-239 mg/dLHigh Cholesterol: greater than 239 mg/dL LDL Cholesterol Calculated 47 <100 mg/dL [facility] Comment:Desirable LDL: less than 100 mg/dLNear Optimal/Above Optimal LDL: 110- 129 mg/dLBorderline High LDL: 130-159 mg/dLHigh LDL: 160-189 mg/dLVery High LDL: greater than or equal to 190 mg/dL HDL Cholesterol 37(L) >40 mg/dL [facility] Comment:Desirable HDL: great er than 40 mg/dL Note: This HDL assay may give artificially low results in patients with liver disease. Blood Venous blood specimen / Unknown 06/05/2024 11:45 AM EDT 06/05/2024 1:04 PM EDT us Shanice Jones MD LAB BLOOD ORDERABLES Final Res ult [facility] [address] [place] [address] [phone] * HM PAP/HPV (10/24/2018) Pap Smear 1. NILM 1. 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
== END 2025-05-03 15:08 | disposition home or self-care (01) ==
LOC: HO.US 15:07
PROVIDERS: PCP General Practice; Visit Provider General Practice
DX: M54.2 Cervicalgia (principal); R29.6 Repeated falls
CPT/HCPCS: 93880

== ENCOUNTER → 2025-05-03 15:13 | Outpatient (BNV) | payer MEDICAID, SELFPAY | PROVIDERS: PCP General Practice; Visit Provider Radiology Diagnostic Radiology | DX: R29.6 Repeated falls (principal) | CPT/HCPCS: 93880 ==

== ENCOUNTER → 2025-05-20 18:15 | Outpatient (BNV) | payer MEDICAID, SELFPAY | PROVIDERS: PCP General Practice; Visit Provider Radiology Diagnostic Radiology | DX: M75.112 Incomplete rotator cuff tear or rupture of left shoulder, not specified as traumatic (principal) | CPT/HCPCS: 73221 ==

== ENCOUNTER 2025-05-20 18:28 | Outpatient (REF) | payer MEDICAID, SELFPAY ==
--- NOTE | ~2025-05-20 | MR_ITS ---
CLINICAL HISTORY: chronic pain MR left shoulder Comparison: CR/SR - XR HUMERUS LT - 03/30/25 12:38 EDT Findings: No fracture or dislocation of the osseous structures. No bone marrow edema. Trace amount of cystic change in the humeral head. The acromioclavicular joint is unremarkable. Trace joint effusion. Trace fluid within the subacromial /subdeltoid bursa. There is increased signal in the supraspinatus tendon with partial tear of the articular surface. No retraction or muscular atrophy. There is increased signal in the infraspinatus and subscapularis tendons without tear, retraction or muscular atrophy. Teres minor is unremarkable. Unremarkable labrum and cartilage. The biceps tendon and bicipital-labral anchor are normal. The coracoacromial and coracohumeral ligaments are intact. Cutaneous and subcutaneous tissues are normal. The quadrilateral space is unremarkable. Impression: Supraspinatus, infraspinatus and subscapularis tendinopathy. Partial tear of supraspinatus. Trace joint effusion and fluid within the subacromial/subdeltoid bursa. This document has been electronically signed by: Marcia Sanchez MD on 05/22/2025 21:35:58
--- OUTSIDE RECORDS SUMMARY | 2025-05-20 18:30 | XMS_ITS | Clinical Summary ---
[facility] Organization [facility] it[facility] Address [address] [place] [address] Care Team Providers Care Meat Team Member Name Role Phone Unavailable Primary Care Provider [...] 2023-2 5 season) 2024 Influenza Vaccine (#1) 2025 RSV Immunization Adult Patie nts (1 [...] 5 Years) and At-Risk Patients (6 to 49 Years) Aged Out No longer eligible b ased on patient's age to complete this topic RSV Immunization Patients Un luis carlos 20 months Aged Out No longer eligible b ased on patient's age to complete this topic Varicella Vaccines Aged Out No longer eligible based on patient's age to complete this topic
--- OUTSIDE RECORDS SUMMARY | 2025-05-20 18:30 | XMS_ITS | Clinical Summary ---
Author Organization [employer] Address [address] [facility] [address] [place] [address] Care Team Providers Care Surveillance Agent Name Role Phone Shanice Jones MD Primary Care Provider [phone] Allergies Active Allergy Reactions Criticality Noted Date [...] 3 (three) months. Active Easy Touch Pen Dickinson 31G X 6 MM miscIndication s:Type 2 diabetes mellitus treated with insulin ([facility]) USE FOUR TIMES DAILY DIRECTED [...] She receives 42 hours a week of [employer] COORDINATOR care, famil will switch from her son to other swat team member. Will extend PT-1 to her other providers [...] artery provides dominant supply to the right [employer] COORDINATOR.Nondominant right vertebral artery is diminutive throughout, not [...] Pt has had difficult maintaining appointments at [facility] Dr Song, would like to come close to where she lives at [facility] Exercise counseling 02/13/2023 Left ankle sprain 11/20/2022 Assessment & Plan (02/13/2023 3:37 PM EDT): Continue followup with ortho and PT at [facility] Did gait training at PT as she says it is difficult to walk, even with a walker and complains of frequent falls [facility]wait[facility] , which translates from [place]ian to braces Assessment & Plan (11/20/2022 10:28 AM EST): Continue followup with ortho and PT at [facility] Request gait training at PT as she says it is difficult to walk, even with a walker and complains of frequent falls Malignant neoplasm of endometrium 11/19/2022 Assessment & Plan (09/04/2024 12:53 PM EDT): No AUB currently Assessment & Plan (11/20/2022 10:25 AM EST): She is worried about reoccurance of neoplasm Will check CBC Ensure followup with upper and bottom lacer hand onc No vaginal bleeding currently Ptosis of [...] Overview (11/05/2024): Per Dr Potts, endo at [facility]: Fair control hemoglobin A1c 7.2% but [...] weekly -called px Trulicity is ready to tile picker -endocrinology apt 05/28/[address] Potts -PCP apt 05/29/2024 Assessment & Plan (01/20/2024 12:53 PM EDT): Followed by [facility] endocrinology Assessment & Plan (11/20/2022 10:27 AM EST): Followed by [facility] endocrinology Gastroparesis 07/18/2021 Assessment & Plan (11/20/2022 10:26 AM EST): 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 If she can discontinue Plavix per [...] Plan (02/13/2023 3:40 PM EDT): [facility] published guidelines about coverage specifically state that there is no coverage for liposuction Recommend consultation with bariatric surgeon about weight loss, with her concerns about gastroparesis and the operation, she declines this referral for now Severe recurrent major depression 12/05/2015 Assessment & Plan (06/01/2024 11:02 AM EDT): Seen at [facility], last christos [facility]ings psychiatrist 05/21/2024 -Denies SI [...] Encounters Date Type Department Care Team Description 05/06/2025 Orders Only [facility] [address] [place] [address] Shanice Jones MD Chronic left shoulder pain (Primary Dx) 05/06/2025 Telephone [facility] [address] [place] [address] Shanice Jones MD Nurse Triage 05/05/2025 Orders Only [facility] [address] [place] [address] Wanda Ivory MD Neck pain (Primary Dx) 05/04/2025 Results Follow-Up [facility] [address] [place] [address] Shanice Jones MD Vascular US carotid artery duplex bilateral 04/23/2025 Refill [facility] [address] [place] [address] Shanice Jones MD 04/01/2025 Refill [facility] [address] [place] [address] Shanice Jones MD 03/30/2025 9:00 AM EDT Procedure Visit [facility] [address] [place] [address] Shanice Jones MD Cervicalgia (Primary Dx); Frequent falls 03/30/2025 Travel 03/30/2025 Telephone [facility] [address] [place] [phone] Shanice Jones MD No Show 03/29/[address] [address] Shanice Jones MD Chart Prep 03/26/2025 3:30 PM EDT Office Visit [address] [address] Shanice Jones MD Fall, subsequent encounter (Primary Dx); Type 2 diabetes mellitus with other specified complication, with long-term current use of insulin ([facility]); Dietary counseling; Exercise counseling; Overweight; Cervicalgia 03/26/2025 Travel 03/25/[address] [address] Shanice Jones MD chart prep 03/23/2025 Orders Only [facility] [address] [place], [place] [phone] Maurisio Reed MD 03/22/2025 Refill [facility] [address] [place] [phone] Shanice Jones MD 03/19/2025 Patient Outreach [address] [address] Shanice Jones MD Pre-visit Planning ((Unable to reach for PVP screening, LVM)) 03/15/2025 Refill [facility] [address] [place] [phone] Shanice Jones MD 02/24/2025 Patient Outreach [address] [address] Shanice Jones MD Care Coordination (C3- ED status check) 02/24/2025 Patient Outreach [address] [address] Shanice Jones MD from Last 3 Months Immunizations Immunization Administration [...] 2024 12/01/2021, 01/25/2021 SDOH Screening 01/09/2025 01/10/2024 RSV Patients and Patients Aged 60 years or older (1 - Risk 60-74 years 1-dose series) 2025 Diabetes: Urine Protein Screening 06/05/2025 06/05/2024, 10/28/2023, 10/10/2022, Additional history exists Lipid Panel 06/05/2025 06/05/2024, 01/09, 01/02/2023, Additional history exists Mammogram 06/10/2025 06/10/2024, 0711/2023, 07/04/2020, Additional history exists Influenza Vaccine (#1) 2025 , 10/02/2021, 10/18/2020, Additional history exists FIT 07/28/2025 07/28/2024 FOBT 07/28/2025 07/28/2024 Diabetes: Hemoglobin A1C 09/26/2025 025, 02/16/2025, 12/01/2024, Additional history exists Depression Screening 03/26/2026 03/26/2025, 03/26/20 Tobacco Screening 03/31/2026 03/31/2025 DTaP/Tdap/Td Vaccines (3 - Td or Tdap) 12/25/2031 12/25/2021, 08/02/2010 Colonoscopy 10/07/2034 10/07/2024, 09/16/2014 Colorectal Cancer Screening 10/07/2034 Zoster Vaccines Completed 12/25/2021, 10/18/2020 Pneumococcal Vaccine: [...] 3:22 PM EDT) 05/03/2025 3:22 PM EDT [facility] - 05/03/2025 4:02 PM EDT [address] [address] Ultrasound Report Signed Patient: Lindsey Wilson MR#: [id number] : 1965 Acct:[id number] Age/Sex: 59 / F ADM Date: 05/03/25 Loc: HO.US Attending Dr: Shanice Jones MD Ordering Physician: Shanice Jones Date of Service: 05/03/25 Procedure(s): US carotid duplex BI Accession Number(s): [id number] cc: Shanice Jones EXAMINATION: US EXTRACRANIAL CAROTID [...] 05/03/25 1559 DD/ 1522 TD/TT: 05/03/25 1532 Business Excellence Leader: Procedure Note Donotuseinterpreter, Image - 05/03/[address] [address] Ultrasound Report Signed Patient: Lindsey Wilson MR#: [id number] : 1965Acct:[id number] Age/Sex: 59 / FADM Date: 05/03/25 Loc: HO.US Attending Dr: Shanice Jones MD Ordering Physician: Shanice Jones Date of Service: 05/03/25 Procedure(s): US carotid duplex BI Accession Number(s): [id number] cc: Shanice Jones EXAMINATION: US EXTRACRANIAL CAROTID [...] 05/03/25 1559 DD/ 1522 TD/TT: 05/03/25 1532 Business Excellence Leader: us Shanice Jones MD CV VASCULAR PROCEDURES Final R esult [facility] [address] [place] [phone] * XR CERVICAL SPINE 3V (03/30/2025 12:09 PM EDT) Anatomical Region Laterality Modality Abdomen Radiographic Haylie ging 03/30/2025 12:0 9 PM EDT Narrative 03/30/2025 1:37 PM EDT [address] [address] XRay Report Signed Patient: Lindsey Wilson MR#: [id number] : 1965 Acct:[id number] Age/Sex: 59 / F ADM Date: 03/30/25 Loc: .HHCX Attending Dr: Shanice Jones MD Ordering Physician: Shanice Jones Date of Service: 03/30/25 Procedure(s): XR cervical spine 3V Accession Number(s): [id number] cc: Shanice Jones EXAMINATION: XR CERVICAL SPINE [...] 03/30/25 1334 DD/ 1209 TD/TT: 03/30/25 1258 Business Excellence Leader: Procedure Note Donotuseinterpreter, Image - 03/30/2025 [place] [address] XRay Report Signed Patient: Lindsey Wilson MR#: [id number] : 1965Acct:[id number] Age/Sex: 59 / FADM Date: 03/30/25 Loc: HO.HHCX Attending Dr: Shanice Jones MD Ordering Physician: Shanice Jones Date of Service: 03/30/25 Procedure(s): XR cervical spine 3V Accession Number(s): [id number] cc: Shanice Jones EXAMINATION: XR CERVICAL SPINE [...] 03/30/25 1334 DD/ 1209 TD/TT: 03/30/25 1258 Business Excellence Leader: Shanice Jones MD IMG XR PROCEDURES Final Result * XR Humerus Left (03/30/2025 12:08 PM EDT) Anatomical Region Laterality Modality Upper Extremities, Humerus Left [facility] 03/30/2025 12:0 8 PM EDT Narrative 03/30/2025 1:30 PM EDT [address] [address] XRay Report Signed Patient: Lindsey Wilson MR#: [id number] : 1965 Acct:[id number] Age/Sex: 59 / F ADM Date: 03/30/25 Loc: ADAN Attending Dr: Shanice Jones MD Ordering Physician: Shanice Jones Date of Service: 03/30/25 Procedure(s): XR humerus LT Accession Number(s): [id number] cc: Shanice Jones EXAMINATION: XR HUMERUS LEFT [...] MD 03/30/2025 01:27 PM EDT Dictated By: Sehkhar Cosme MD Signed By: <Electronically signed by Shekhar Cosme MD in OV> 03/30/25 1327 DD/ 1208 TD/TT: 03/30/25 1250 Business Excellence Leader: Procedure Note Donotuseinterpreter, Image - 03/30/[address] [address] XRay Report Signed Patient: Lindsey Wilson MR#: [id number] : 1965Acct:[id number] Age/Sex: 59 / FADM Date: 03/30/25 Loc: ADAN Attending Dr: Shanice Jones MD Ordering Physician: Shanice Jones Date of Service: 03/30/25 Procedure(s): XR humerus LT Accession Number(s): [id number] cc: Shanice Jones EXAMINATION: XR HUMERUS LEFT [...] 03/30/25 1327 DD/ 1208 TD/TT: 03/30/25 1250 Business Excellence Leader: Shanice Jones MD IMG XR PROCEDURES Final [...] verbalizes understanding, and wants to proceed: Yes [place] protocol: Procedure explained and questions answered to [...] CARE TEST ENTER/EDIT ORDERABLES Final Result * Hm Colonoscopy (10/07/2024 10:40 AM EST) Colonoscopy Normal Normal Narrative Idalmis Huber - 10/07/2024 10:40 AM EST Recommended 10 years . see results scanned in instructional media services technician on 10/07/2024 Historical Provider HEALTH MAINTENANCE Edited Result - Final * BI Mammogram Screening Tomosynthesis Bilateral (06/10/2024 3:25 PM EDT) Anatomical Region Laterality Modality Breast Bilateral Mammography 06/10/2024 3:25 PM EDT Narrative 06/17/2024 11:18 AM EDT [facility] [address] [place], [place] [address] Mammography Report Signed Patient: Lindsey Wilson MR#: [id number] : 1965 Acct:[id number] Age/Sex: 59 / F ADM Date: 06/10/24 Loc: HO.MAMMO Attending Dr: Shanice Jones MD Ordering Physician: Shanice Jones Results: 1Negative Date of Service: 06/10/24 Follow Up: 1 Year From Orig inal Mammogram Procedure(s): MM tomosynthesis screening BI Accession Number(s): [id number] cc: Shanice Jones EXAMINATION: MM SCREENING DIGITAL [...] in OV> 06/17/24 1114 DD/ 1525 TD/TT: Business Excellence Leader: Procedure Note Donotuseinterpreter, Image - 06/17/20[facility] [address] [place] [address] Mammography Report Signed Patient: Lindsey Wilson MR#: [id number] : 1965Acct:[id number] Age/Sex: 59 / FADM Date: 06/10/24 Loc: JAMESO Attending Dr: Shanice Jones MD Ordering Physician: Felix Jonesults: 1Negative Date of Service: 06/10/24Follow Up: 1 Year From Orig inal Mammogram Procedure(s): MM tomosynthesis screening BI Accession Number(s): [id number] cc: Shanice Jones EXAMINATION: MM SCREENING DIGITAL [...] in OV> 06/17/24 1114 DD/ 1525 TD/TT: Business Excellence Leader: Shanice Jones MD IMG BI PROCEDURES Final Result * Albumin, Random Urine W/Creatinine (06/05/2024 11:45 AM EDT) Creatinine, Urine 148.96 mg/dL [facility] Microalbumin Urine 12.0 mg/L [facility] Microalbum Creatinine Ratio Ur 8.0 <30 ug/mg cr [facility] Comment:Albumin/Creatinine R atio Reference Ranges: Normal: < 30 ug/mg creatinine Microalbuminuria: 30 - 300 ug/mg creatinineClinical Albuminuria: > 300 ug/mg creatinine Urine (Urine, Random) 06/05/2024 11:45 AM EDT 06/05/2024 12:51 PM EDT Shanice Jones MD LAB URINE ORDERABLES Final Res ult [facility] [address], [place] [phone] * Hepatitis C Antibody with Reflex to HCV, RNA, Quantitative, Real-Time PCR (06/05/2024 11:45 AM EDT) Hepatitis C Antibody Nonreactive Nonreactive [facility] Comment:Antibodies to HCV no t detected; does not exclude early acuteHCV infection. Blood Venous blood specimen / Unknown 06/05/2024 11:45 AM EDT 06/05/2024 1:04 PM EDT us Gissel Machuca MD LAB BLOOD ORDERAB LES Final Result Performing Organization Address City/[facility]/ZIP Co de Phone Number [facility] [address] [place] [phone] [phone] * HIV-1/2 Antigen and Antibodies, Fourth Generation, with Reflexes (06/05/2024 11:45 AM EDT) HIV AB/AG Nonreactive Nonreactive [facility] Comment:HIV-1 p24 Ag and/or HIV-1/HIV-2 Ab not detected.A test result that is nonreactive does not exclude thepossibility of exposure to or infection with HIV-1 and/orHIV-2. Nonreactive results in this assay for individualswith prior exposure to HIV-1 and/or HIV-2 may be due toantigen and antibody levels that are below the limit ofdetection of this assay.The [employer] HIV Ag/Ab Combo assay result andsupplemental assay results should be interpreted inconjunction with the patient's clinical presentation,history and other laboratory results. If the results areinconsistent with clinical evidence, additional testing issuggested to confirm the result. Blood Venous blood specimen / Unknown 06/05/2024 11:45 AM EDT 06/05/2024 1:04 PM EDT us Gissel Machuca MD LAB BLOOD ORDERAB LES Final Result Performing Organization Address City/[facility]/ZIP Co de Phone Number [facility] [address] [place] [address] [phone] * (ABNORMAL) Lipid Panel, Standard (06/05/2024 11:45 AM EDT) Triglycerides 132 <150 mg/dL [facility] Comment:Desirable Triglyceri de: less than 150 mg/dLBorderline High Triglyceride 150-199 mg/dLHigh Triglyceride: 200-499 mg/dLVery High Triglyceride: greater than or equal to 5OO mg/dL Cholesterol 110 <200 mg/dL [facility] Comment:Desirable Cholestero l: less than 200 mg/dLBorderline High Cholesterol: 200-239 mg/dLHigh Cholesterol: greater than 239 mg/dL LDL Cholesterol Calculated 47 <100 mg/dL [facility] Comment:Desirable LDL: less than 100 mg/dLNear Optimal/Above Optimal LDL: 110- 129 mg/dLBorderline High LDL: 130-159 mg/dLHigh LDL: 160-189 mg/dLVery High LDL: greater than or equal to 190 mg/dL HDL Cholesterol 37(L) >40 mg/dL [facility] Comment:Desirable HDL: great er than 40 mg/dL Note: This HDL assay may give artificially low results in patients with liver disease. Blood Venous blood specimen / Unknown 06/05/2024 11:45 AM EDT 06/05/2024 1:04 PM EDT Shanice Jones MD LAB BLOOD ORDERABLES Final Res ult [facility] [address] [place] [address] [phone] * PAP/HPV (10/24/2018) Pap Smear 1. NILM 1. NILM HPV Not Detected Undetected, Indeterminat e, Quantitative , Not Detected Historical Provider HEALTH MAINTENANCE Final Result from Last 3 Months or Most Recently Relevant to Health Maintenance Insurance [employer] C3 Care Teams Surveillance Agent Relationship Specialty Start Date End Date Shanice Jones MD [address] [place] [phone] PCP - General Family Medicine 12/22/20 [place] Wharf Tender HelperIncendiary Powder Mixer 08/26/24 [facility] 12/26/24
--- OUTSIDE RECORDS SUMMARY | 2025-06-22 20:00 | XMS_ITS | Clinical Summary ---
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 Name Role Phone BRENDA FUCHS, ELDER Unavailable Unavailable KIERRA SANTAMARIA, JOAQUIM Unavailable Unavailable JEANNA THOMPSON, FELISHA Unavailable Unavailable Payers Payer Name Policy Type Policy Number Effective Date Expira tion Date MEDICAID [facility] [id number] Problems Condition Name Condition Details Condition Category [...] 325 mg tablet 12-26 00:00: 00 Yes [id number] 975 mg EVERY 8 HOURS 975 mg EVERY 8 HOURS (route: oral) Med Classific ation: Analgesic , Anti-infl ammatory or Antipyret ic albuterol sulfate HFA 90 mcg/actuati on aerosol inhaler 12-26 00:00: 00 Yes [id number] 1 puff EVERY 4 HOURS 1 puff EVERY 4 HOURS (route: inhalation ) Med Classific ation: Respirato ry Therapy Agents azelastine 137 mcg (0.1 %) nasal spray 12-26 00:00: 00 Yes [id number] 1 spray DIRECTED 1 spray DIRECTED (route: nasal) Med Classific ation: Respirato ry Therapy Agents budesonide- formoterol HFA 160 mcg-4.8 mcg/actuati on aerosol inhaler 12-26 00:00: 00 Yes [id number] 2 puff 2 TIMES DAILY 2 puff 2 TIMES DAILY (route: inhalation ) Med Classific ation: Respirato ry Therapy Agents cholecalcif tonya (vitamin D3) 25 mcg (1,000 unit) tablet 12-26 00:00: 00 Yes [id number] 1 tablet EVERY AM 1 tablet EVERY AM (route: oral) Med Classific ation: Electroly te Balance-N utritiona l Products clonazepam 0.5 mg tablet 12-26 00:00: 00 Yes [id number] 1 tablet 2 TIMES DAILY 1 tablet 2 TIMES DAILY (route: oral) Med Classific ation: Central Nervous System Agents clopidogrel 75 mg tablet 12-26 00:00: 00 Yes [id number] 1 tablet DAILY 1 tablet DAILY (route: oral) Med Classific ation: Hematolog ical Agents diclofenac 1 % topical gel 12-26 00:00: 00 Yes [id number] Per instruc tions 2 TIMES DAILY Per instructio ns 2 TIMES DAILY (route: topical) Med Classific ation: Dermatolo gical docusate sodium 100 mg capsule 12-26 00:00: 00 Yes [id number] 2 capsule 2 TIMES DAILY 2 capsule 2 TIMES DAILY (route: oral) Med Classific ation: Gastroint estinal Therapy Agents escitalopra m 20 mg tablet 12-26 00:00: 00 Yes [id number] 2 tablet EVERY AM 2 tablet EVERY AM (route: oral) Med Classific ation: Central Nervous System Agents ferrous sulfate 325 mg (65 mg iron) tablet 12-26 00:00: 00 Yes [id number] 1 tablet DAILY 1 tablet DAILY (route: oral) Med Classific ation: Electroly te Balance-N utritiona l Products insulin aspart (U-100) 100 unit/mL (3 mL) subcutaneou s pen 12-26 00:00: 00 Yes [id number] Per instruc tions 3 TIMES DAILY Per instructio ns 3 TIMES DAILY (route: subcutaneo us) Med Classific ation: Endocrine insulin glargine (U-100) 100 unit/mL (3 mL) subcutaneou s pen 2-15 00:00: 00 Yes [id number] 25 unit BEDTIME 25 unit BEDTIME (route: subcutaneo us) Med Classific ation: Endocrine isosorbide mononitrate ER 30 mg tablet,exte nded release 24 hr 2-15 00:00: 00 Yes [id number] 1 tablet EVERY AM 1 tablet EVERY AM (route: oral) Med Classific ation: Cardiovas cular Therapy Agents lactulose 10 gram/15 mL (15 mL) oral solution -15 00:00: 00 Yes [id number] Per instruc tions 3 TIMES DAILY Per instructio ns 3 TIMES DAILY (route: oral) Med Classific ation: Gastroint estinal Therapy Agents levothyroxi ne 50 mcg tablet 2-15 00:00: 00 Yes [id number] 1 tablet DAILY 1 tablet DAILY (route: oral) Med Classific ation: Endocrine meclizine 12.5 mg tablet 2-15 00:00: 00 Yes [id number] 25 mg 3 TIMES DAILY 25 mg 3 TIMES DAILY (route: oral) Med Classific ation: Gastroint estinal Therapy Agents metformin 500 mg tablet 2-15 00:00: 00 Yes [id number] 2 tablet 2 TIMES DAILY 2 tablet 2 TIMES DAILY (route: oral) Med Classific ation: Endocrine omeprazole 20 mg delayed release,dis integrating tablet 2-15 00:00: 00 Yes [id number] 1 tablet DAILY 1 tablet DAILY (route: oral) Med Classific ation: Gastroint estinal Therapy Agents pregabalin 200 mg capsule 2-15 00:00: 00 Yes [id number] 1 capsule BEDTIME 1 capsule BEDTIME (route: oral) Med Classific ation: Central Nervous System Agents quetiapine 25 mg tablet 2-15 00:00: 00 Yes [id number] 1 tablet BEDTIME 1 tablet BEDTIME (route: oral) Med Classific ation: Central Nervous System Agents rosuvastati n 10 mg tablet 12-26 00:00: 00 Yes [id number] 1 tablet BEDTIME 1 tablet BEDTIME (route: oral) Med Classific ation: Cardiovas cular Therapy Agents Senna Lax 8.6 mg tablet 12-26 00:00: 00 Yes [id number] 1 tablet 2 TIMES DAILY 1 tablet 2 TIMES DAILY (route: oral) Med Classific ation: Gastroint estinal Therapy Agents sucralfate 1 gram tablet 12-26 00:00: 00 Yes [id number] 1 tablet EVERY 12 HOURS 1 tablet EVERY 12 HOURS (route: oral) Med Classific ation: Gastroint estinal Therapy Agents thiamine HCl (vitamin B1) 50 mg tablet 12-26 00:00: 00 Yes [id number] 1 tablet EVERY AM 1 tablet EVERY AM (route: oral) Med Classific ation: Electroly te Balance-N utritiona l Products Trulicity 4.5 mg/0.5 mL subcutaneou s pen injector 12-26 00:00: 00 Yes [id number] Per instruc tions WEEKLY Per instructio ns WEEKLY (route: subcutaneo us) Med Classific ation: Endocrine zolpidem 10 mg tablet 12-26 00:00: 00 Yes [id number] 1 tablet BEDTIME 1 tablet BEDTIME (route: oral) Med Classific ation: Central Nervous System Agents acetaminoph en 325 mg tablet 12-26 00:00: 00 Yes [id number] 975 mg EVERY 8 HOURS 975 mg EVERY 8 HOURS (route: oral) Med Classific ation: Analgesic , Anti-infl ammatory or Antipyret ic albuterol sulfate HFA 90 mcg/actuati on aerosol inhaler 12-26 00:00: 00 Yes [id number] 1 puff EVERY 4 HOURS 1 puff EVERY 4 HOURS (route: inhalation ) Med Classific ation: Respirato ry Therapy Agents azelastine 137 mcg (0.1 %) nasal spray 12-26 00:00: 00 Yes [id number] 1 spray DIRECTED 1 spray DIRECTED (route: nasal) Med Classific ation: Respirato ry Therapy Agents budesonide- formoterol HFA 160 mcg-4.8 mcg/actuati on aerosol inhaler 2-15 00:00: 00 Yes [id number] 2 puff 2 TIMES DAILY 2 puff 2 TIMES DAILY (route: inhalation ) Med Classific ation: Respirato ry Therapy Agents cholecalcif tonya (vitamin D3) 25 mcg (1,000 unit) tablet 2- 00:00: 00 Yes [id number] 1 tablet EVERY AM 1 tablet EVERY AM (route: oral) Med Classific ation: Electroly te Balance-N utritiona l Products clonazepam 0.5 mg tablet - 00:00: 00 Yes [id number] 1 tablet 2 TIMES DAILY 1 tablet 2 TIMES DAILY (route: oral) Med Classific ation: Central Nervous System Agents clopidogrel 75 mg tablet - 00:00: 00 Yes [id number] 1 tablet DAILY 1 tablet DAILY (route: oral) Med Classific ation: Hematolog ical Agents diclofenac 1 % topical gel - 00:00: 00 Yes [id number] Per instruc tions 2 TIMES DAILY Per instructio ns 2 TIMES DAILY (route: topical) Med Classific ation: Dermatolo gical docusate sodium 100 mg capsule - 00:00: 00 Yes [id number] 2 capsule 2 TIMES DAILY 2 capsule 2 TIMES DAILY (route: oral) Med Classific ation: Gastroint estinal Therapy Agents escitalopra m 20 mg tablet - 00:00: 00 Yes [id number] 2 tablet EVERY AM 2 tablet EVERY AM (route: oral) Med Classific ation: Central Nervous System Agents ferrous sulfate 325 mg (65 mg iron) tablet - 00:00: 00 Yes [id number] 1 tablet DAILY 1 tablet DAILY (route: oral) Med Classific ation: Electroly te Balance-N utritiona l Products insulin aspart (U-100) 100 unit/mL (3 mL) subcutaneou s pen -15 00:00: 00 Yes [id number] Per instruc tions 3 TIMES DAILY Per instructio ns 3 TIMES DAILY (route: subcutaneo us) Med Classific ation: Endocrine insulin glargine (U-100) 100 unit/mL (3 mL) subcutaneou s pen 2-15 00:00: 00 Yes [id number] 25 unit BEDTIME 25 unit BEDTIME (route: subcutaneo us) Med Classific ation: Endocrine isosorbide mononitrate ER 30 mg tablet,exte nded release 24 hr 2-15 00:00: 00 Yes [id number] 1 tablet EVERY AM 1 tablet EVERY AM (route: oral) Med Classific ation: Cardiovas cular Therapy Agents lactulose 10 gram/15 mL (15 mL) oral solution -15 00:00: 00 Yes [id number] Per instruc tions 3 TIMES DAILY Per instructio ns 3 TIMES DAILY (route: oral) Med Classific ation: Gastroint estinal Therapy Agents levothyroxi ne 50 mcg tablet 2-15 00:00: 00 Yes [id number] 1 tablet DAILY 1 tablet DAILY (route: oral) Med Classific ation: Endocrine meclizine 12.5 mg tablet 2-15 00:00: 00 Yes [id number] 25 mg 3 TIMES DAILY 25 mg 3 TIMES DAILY (route: oral) Med Classific ation: Gastroint estinal Therapy Agents metformin 500 mg tablet 2-15 00:00: 00 Yes [id number] 2 tablet 2 TIMES DAILY 2 tablet 2 TIMES DAILY (route: oral) Med Classific ation: Endocrine omeprazole 20 mg delayed release,dis integrating tablet 2-15 00:00: 00 Yes [id number] 1 tablet DAILY 1 tablet DAILY (route: oral) Med Classific ation: Gastroint estinal Therapy Agents pregabalin 200 mg capsule 2-15 00:00: 00 Yes [id number] 1 capsule BEDTIME 1 capsule BEDTIME (route: oral) Med Classific ation: Central Nervous System Agents quetiapine 25 mg tablet 2-15 00:00: 00 Yes [id number] 1 tablet BEDTIME 1 tablet BEDTIME (route: oral) Med Classific ation: Central Nervous System Agents rosuvastati n 10 mg tablet 2-15 00:00: 00 Yes [id number] 1 tablet BEDTIME 1 tablet BEDTIME (route: oral) Med Classific ation: Cardiovas cular Therapy Agents Senna Lax 8.6 mg tablet 12-26 00:00: 00 Yes [id number] 1 tablet 2 TIMES DAILY 1 tablet 2 TIMES DAILY (route: oral) Med Classific ation: Gastroint estinal Therapy Agents sucralfate 1 gram tablet 12-26 00:00: 00 Yes [id number] 1 tablet EVERY 12 HOURS 1 tablet EVERY 12 HOURS (route: oral) Med Classific ation: Gastroint estinal Therapy Agents thiamine HCl (vitamin B1) 50 mg tablet 12-26 00:00: 00 Yes [id number] 1 tablet EVERY AM 1 tablet EVERY AM (route: oral) Med Classific ation: Electroly te Balance-N utritiona l Products Trulicity 4.5 mg/0.5 mL subcutaneou s pen injector 12-26 00:00: 00 Yes [id number] Per instruc tions WEEKLY Per instructio ns WEEKLY (route: subcutaneo us) Med Classific ation: Endocrine zolpidem 10 mg tablet 12-26 00:00: 00 Yes [id number] 1 tablet BEDTIME 1 tablet BEDTIME (route: oral) Med Classific ation: Central Nervous System Agents Vital Signs Vital Name Observation Time Observation Value Commen ts Temperature 2025 15:34:00.000 98.2 [degF] Temperature 2025-05-10 15:36:00.000 98.5 [degF] Temperature 2025-05-06 16:10:00.000 98.5 [degF] Pulse 2025 15:34:00.000 62 /min Pulse 2025-05-10 15:36:00.000 68 /min Pulse 2025-05-07 15:18:00.000 74 /min Pulse 2025-05-06 16:10:00.000 65 /min O2 Saturation (%) 2025 15:34:00.000 99 % O2 Saturation (%) 2025-05-13 13:06:00.000 97 % O2 Saturation (%) 2025-05-10 15:36:00.000 99 % O2 Saturation (%) 2025-05-06 16:10:00.000 96 % Respirations 2025 15:34:00.000 16 /min Respirations 2025-05-13 13:06:00.000 18 /min Respirations 2025-05-10 15:36:00.000 16 /min Respirations 2025-05-07 15:18:00.000 18 /min Respirations 2025-05-06 16:10:00.000 16 /min Systolic Blood Pressure 2025 15:34:00.000 102 mm [Hg] Systolic Blood Pressure 2025-05-13 13:06:00.000 134 mm [Hg] Systolic Blood Pressure 2025-05-10 15:36:00.000 118 mm [Hg] Systolic Blood Pressure 2025-05-07 15:18:00.000 134 mm [Hg] Systolic Blood Pressure 2025-05-06 16:10:00.000 98 mm[ Hg] Diastolic Blood Pressure 2025 15:34:00.000 62 mm [Hg] Diastolic Blood Pressure 2025-05-13 13:06:00.000 80 mm [Hg] Diastolic Blood Pressure 2025-05-10 15:36:00.000 60 mm [Hg] Diastolic Blood Pressure 2025-05-07 15:18:00.000 94 mm [Hg] Diastolic Blood Pressure 2025-05-06 16:10:00.000 60 mm [Hg] Plan of Treatment Planned Activity [...] GOAL FOR HOME HEALTH.] Future Scheduled Test NEED FOR C ONTINUATION OF PHYSICAL THERAPY SERVICES [code = NEED FOR CONTINUATION OF PHYSICAL THERAPY SERVICES] Future Scheduled Test SKILLED NU RSE TO O/A OF PATIENTS MENTAL/BEHAVIORAL STATUS, ASSESS VITAL SIGNS AT LEAST WEEKLY. ALLOW 2 PRNS FOR MEDICATION MANAGEMENT. [code = SKILLED NURSE TO O/A OF PATIENTS MENTAL/BEHAVIORAL STATUS, ASSESS VITAL SIGNS AT LEAST WEEKLY. ALLOW 2 PRNS FOR MEDICATION MANAGEMENT.] Future Scheduled Test SKILLED NU RSE TO OBTAIN BLOOD SUGAR PRN FOR SIGNS AND SYMPTOMS OF HYPO/HYPERGLYCEMIA. IF OBTAINED BY PATIENT/CAREGIVER PRIOR TO VISIT AND PATIENT IS NOT SYMPTOMATIC, SKILLED NURSE TO RECORD READING FROM PATIENT LOG. [code = SKILLED NURSE TO OBTAIN BLOOD SUGAR PRN FOR SIGNS AND SYMPTOMS OF HYPO/HYPERGLYCEMIA. IF OBTAINED BY PATIENT/CAREGIVER PRIOR TO VISIT AND PATIENT IS NOT SYMPTOMATIC, SKILLED NURSE TO RECORD READING FROM PATIENT LOG.] Future Scheduled Test SKILLED NU RSE FOR [...] REPORT.] Future Scheduled Test SKILLED NU RSE FOR [...] FOR O/A AND SKILLED TEACHING RELATED TO SIGNS AND SYMPTOMS AND MANAGEMENT OF CERVICALAGIA [code = SKILLED NURSE FOR O/A AND SKILLED TEACHING RELATED TO SIGNS AND SYMPTOMS AND MANAGEMENT OF CERVICALAGIA ] Future Scheduled Test SKILLED NU RSE [...] REGIMEN.] Future Scheduled Test SKILLED NU RSE TO [...] AWARENESS FOR SAFETY AND WILL NOTIFY CLINICAL FIRE CREW SPECIALIST AND PHYSICIAN/PROVIDER WITH ANY CHANGE IN CONDITION. [code = SKILLED NURSE WILL MAINTAIN SITUATIONAL AWARENESS FOR SAFETY AND WILL NOTIFY CLINICAL FIRE CREW SPECIALIST AND PHYSICIAN/PROVIDER WITH ANY CHANGE IN CONDITION.] Future Scheduled Test PHYSICAL T HERAPIST TO EVALUATE PATIENT SECONDARY TO FUNCTIONAL DEFICITS/SAFETY CONCERNS. PHYSICAL THERAPY TO ESTABLISH /UPGRADE/DOWNGRADE THERAPEUTIC EXERCISE PROGRAM AND INSTRUCT PATIENT/CAREGIVER ON EXERCISE PRECAUTIONS WITH WRITTEN HOME PROGRAM. MAY INCLUDE PROM, AAROM, AROM, RROM APPROPRIATE TO IMPROVE FUNCTIONAL STRENGTH AND RANGE OF MOTION. PHYSICAL THERAPY TO INSTRUCT PATIENT/CAREGIVER ON GAIT [...] REASON(S) SKILLS OF A THERAPIST ARE INDICATED: 04/22: PATIENT SEEN FOR RECERTIFICATION VISIT WITH SON PRESENT. DENIES FALLS OR CHANGES TO MEDICATION REGIMENT. PATIENT REPORTING THAT HER PAIN LEVELS HAVE BEEN SLOWLY IMPROVING OVER THE LAST 2 WEEKS SINCE HEP WAS UPDATED TO INCLUDE CERVICAL RETRACTION EXERCISES. HEP REVIEWED WITH PATIENT WHICH INCLUDES THE FOLLOWING: SUPINE CHIN TUCKS, SUPINE SCAPULAR RETRACTION WITH CHIN TUCK AND ISOMETRIC HOLD FOR 5 SECONDS, SEATED DEEP NEXT EXTENSOR EXERCISE WITH EMPHASIS ON MAINTAINING CHIN TUCK, UPPER TRAP AND LEVATOR SCAP STRETCHES. PATIENT REQUIRED VERBAL/TACTILE CUES APPROXIMATELY 50% OF TIME FOR APPROPRIATE IMPLEMENTATION OF HEP, PATIENT HAS LEFT SHOULDER PAIN WITH TENDERNESS TO PALPATION TO SUPRASPINATUS. HEP UPDATED TO INCLUDE ISOMETRIC EXERCISES FOR ROTATOR CUFF INCLUDING SHOULDER ADDUCTION ISOMETRICS, INTERNAL/EXTERNAL ROTATION ISOMETRICS WITH YELLOW THERABAND FOR 2-3 SETS X15 REPETITIONS. PATIENT HAS DEMONSTRATED PROGRESS TOWARDS MOBILITY GOALS WITH HOME PT SERVICES SHE IS INDEPENDENT WITH TRANSFERS AND BED MOBILITY WHEN PATIENT INITIALLY REQUIRED CGA X1 AFTER DISCHARGE HOME FROM EMERGENCY ROOM PRESENTATION THIS EPISODE OF CARE. PATIENT REQUIRES SUPERVISION FOR LEVEL SURFACE AMBULATION WITHIN HER HOME AND CGA X1 FOR STAIR NAVIGATION. WILL PLAN TO INCORPORATE GLOBAL EXERCISE/LOWER EXTREMITY STRENGTHENING INTO HEP WITH RECERTIFICATION IN ORDER FOR PATIENT TO HAVE IMPROVED ABILITY TO ACCESS AND NAVIGATE HER HOME ENVIRONMENT PAIN LEVELS ARE BECOMING MORE MANAGEABLE. TINETTI SCORE HAS ALSO IMPROVED TO GREATER THAN 19/30 WHICH IS NO LONGER INDICATIVE OF HIGH FALL RISK. VERBAL ORDER RECEIVED FROM RENAL AT MD OFFICE FOR PT PLAN OF CARE. EDUCATED PATIENT AND SON ON-CALL US FIRST POLICY, SURVEY, AND ON-CALL HOURS PHYSICAL THERAPY TO PROVIDE MANUAL THERAPY TECHNIQUES INCLUDING JOINT MOBILIZATIONS/MFR/SOFT TISSUE MOBILIZATION TO CERVICAL AND THORACIC SPINE ASSIST WITH PAIN CONTROL AND/OR JOINT MOBILITY. [...] PATIENT SECONDARY TO FUNCTIONAL DEFICITS/SAFETY CONCERNS. PHYSICAL THERAPY TO ESTABLISH /UPGRADE/DOWNGRADE THERAPEUTIC EXERCISE PROGRAM AND INSTRUCT PATIENT/CAREGIVER ON EXERCISE PRECAUTIONS WITH WRITTEN HOME PROGRAM. MAY INCLUDE PROM, AAROM, AROM, RROM APPROPRIATE TO IMPROVE FUNCTIONAL STRENGTH AND RANGE OF MOTION. PHYSICAL THERAPY TO INSTRUCT PATIENT/CAREGIVER ON GAIT [...] REASON(S) SKILLS OF A THERAPIST ARE INDICATED: 04/22: PATIENT SEEN FOR RECERTIFICATION VISIT WITH SON PRESENT. DENIES FALLS OR CHANGES TO MEDICATION REGIMENT. PATIENT REPORTING THAT HER PAIN LEVELS HAVE BEEN SLOWLY IMPROVING OVER THE LAST 2 WEEKS SINCE HEP WAS UPDATED TO INCLUDE CERVICAL RETRACTION EXERCISES. HEP REVIEWED WITH PATIENT WHICH INCLUDES THE FOLLOWING: SUPINE CHIN TUCKS, SUPINE SCAPULAR RETRACTION WITH CHIN TUCK AND ISOMETRIC HOLD FOR 5 SECONDS, SEATED DEEP NEXT EXTENSOR EXERCISE WITH EMPHASIS ON MAINTAINING CHIN TUCK, UPPER TRAP AND LEVATOR SCAP STRETCHES. PATIENT REQUIRED VERBAL/TACTILE CUES APPROXIMATELY 50% OF TIME FOR APPROPRIATE IMPLEMENTATION OF HEP, PATIENT HAS LEFT SHOULDER PAIN WITH TENDERNESS TO PALPATION TO SUPRASPINATUS. HEP UPDATED TO INCLUDE ISOMETRIC EXERCISES FOR ROTATOR CUFF INCLUDING SHOULDER ADDUCTION ISOMETRICS, INTERNAL/EXTERNAL ROTATION ISOMETRICS WITH YELLOW THERABAND FOR 2-3 SETS X15 REPETITIONS. PATIENT HAS DEMONSTRATED PROGRESS TOWARDS MOBILITY GOALS WITH HOME PT SERVICES SHE IS INDEPENDENT WITH TRANSFERS AND BED MOBILITY WHEN PATIENT INITIALLY REQUIRED CGA X1 AFTER DISCHARGE HOME FROM EMERGENCY ROOM PRESENTATION THIS EPISODE OF CARE. PATIENT REQUIRES SUPERVISION FOR LEVEL SURFACE AMBULATION WITHIN HER HOME AND CGA X1 FOR STAIR NAVIGATION. WILL PLAN TO INCORPORATE GLOBAL EXERCISE/LOWER EXTREMITY STRENGTHENING INTO HEP WITH RECERTIFICATION IN ORDER FOR PATIENT TO HAVE IMPROVED ABILITY TO ACCESS AND NAVIGATE HER HOME ENVIRONMENT PAIN LEVELS ARE BECOMING MORE MANAGEABLE. TINETTI SCORE HAS ALSO IMPROVED TO GREATER THAN 19/30 WHICH IS NO LONGER INDICATIVE OF HIGH FALL RISK. VERBAL ORDER RECEIVED FROM RENAL AT MD OFFICE FOR PT PLAN OF CARE. EDUCATED PATIENT AND SON ON-CALL US FIRST POLICY, SURVEY, AND ON-CALL HOURS PHYSICAL THERAPY TO PROVIDE MANUAL THERAPY TECHNIQUES INCLUDING JOINT MOBILIZATIONS/MFR/SOFT TISSUE MOBILIZATION TO CERVICAL AND THORACIC SPINE ASSIST WITH PAIN CONTROL AND/OR JOINT MOBILITY. [...] Goal - TO REDUCE MICHAEL N Goal 2025-04-23 Patient Goal - TO REDUCE MICHAEL N Goal Provider Goal - A PLAN OF CARE WILL BE ESTABLISHED THAT MEETS PATIENT'S SNF NEEDS AND INCLUDES PATIENT GOAL FOR HOME HEALTH. Goal Provider Goal - PHYSICAL THERAPY SERVICES TO CONTINUE AND PLAN OF TREATMENT CARE WILL BE RE-ESTABLISHED/UPDATED IN THE NEW CERTIFICATION PERIOD. Goal Provider Goal - ALTERED MENTAL/BEHAVIORAL STATUS WILL BE IDENTIFIED PROMPTLY AND INTERVENTION INITIATED QUICKLY TO MINIMIZE ASSOCIATED RISKS THROUGHOUT CERTIFICATION PERIOD. Goal Provider Goal - BLOOD [...] Goal - PATIENT/CAREGIVER WILL VERBALIZE UNDERSTANDING OF MUSCULOSKELETAL DISEASE INCLUDING SIGNS AND SYMPTOMS, MANAGEMENT, AND PRESCRIBED TREATMENT REGIMEN BY END OF EPISODE. Goal Provider Goal - PATIENT/CAREGIVER WILL VERBALIZE/DEMONSTRATE EFFECTIVE HOME SAFETY AND FALL PREVENTION STRATEGIES THROUGHOUT CERTIFICATION PERIOD. Goal Provider Goal - PATIENT/CAREGIVER WILL DEMONSTRATE UNDERSTANDING OF PHARMACOLOGIC AND NONPHARMACOLOGIC PAIN CONTROL MEASURES AND PATIENT WILL HAVE IMPROVEMENT IN PAIN INTERFERING WITH ACTIVITY EVIDENCED BY PAIN AT A LEVEL THAT IS ACCEPTABLE TO THE PATIENT AND PAIN LEVEL WITHIN ESTABLISHED PARAMETERS BY END OF CERTIFICATION PERIOD. Goal Provider Goal - PSYCHOSOCIAL NEEDS WILL BE IDENTIFIED AND PLAN IMPLEMENTED TO MINIMIZE RISK THROUGHOUT CERTIFICATION PERIOD. Goal Provider Goal - PATIENT WILL REMAIN SAFE IN THE COMMUNITY AND WILL BE FREE OF DANGER TO SELF AND OTHERS THROUGHOUT THE CERTIFICATION PERIOD. Goal Provider Goal - PHYSICAL THERAPY EVALUATION TO BE COMPLETED WITH RECOMMENDATIONS AND/OR WRITTEN TREATMENT PLAN OF CARE ESTABLISHED FOR THE PHYSICIANS SIGNATURE PATIENT/CAREGIVER WILL PERFORM THERAPEUTIC EXERCISE/S AND DEMONSTRATE PARTICIPATION IN A HOME PROGRAM. PATIENT/CAREGIVER WILL DEMONSTRATE IMPROVED GAIT TECHNIQUES TO [...] BY THE END OF THE CERTIFICATION PERIOD. Progress Notes Progress Notes <paragraph>[Visit Date: 2024 by FELISHA MEEKS PT]:</paragraph><paragraph>05/18: PATIENT SEEN FOR REASSESSMENT WITH SON PRESENT FOR INTERPRETING AND MACEDONIAN. DENIES FALLS OR CHANGES TO MEDICATION REGIMEN. MEDICATIONS RECONCILED WITHOUT ISSUES. EDUCATED PATIENT AND PATIENT'S SON ON PRECAUTIONS TO TAKE WITH ALL HIGH RISK MEDICATIONS AND REGIMENT, BLOOD SUGARS HAVE BEEN WELL CONTROLLED SINCE PRIOR VISIT, BLOOD SUGARS HAVE BEEN BETWEEN 90S AND 120S PER SON REPORT. PATIENT HAS BEEN STRUGGLING WITH HEADACHES OVER THE LAST 2 WEEKS WITH NO IMPROVEMENT IN SYMPTOMS. PATIENT SUSTAINED FALL YESTERDAY STANDING, REPORTS THAT SHE HAD ONSET OF DIZZINESS THAT RESULTED IN UNPREVENTABLE FALL. REPORTS NO PRODROMAL SYMPTOMS PRIOR TO ONSET OF DIZZINESS, PATIENT HAS HISTORY OF SYNCOPE AND FALLS. PATIENT SUSTAINED NO INJURIES WITH FALL AND ABLE TO GET OFF OF FLOOR WITH SONS ASSISTANCE. SPOKE TO OPAL AT PCP OFFICE TO REPORT FALL AND NO IMPROVEMENT IN PATIENT'S MIGRAINE OVER THE LAST 2 WEEKS, RECOMMENDED TO CONSULT NEUROLOGY OFFICE FOR APPOINTMENT. SON REPORTS THAT PATIENT HAS HAD BOTOX INJECTIONS IN THE PAST TO MANAGE HEADACHES/MIGRAINES REPORTS THAT PATIENT HAS UPCOMING NEUROLOGY APPOINTMENT TO REFER FOR BOTOX INJECTION IN OCTOBER. CALL PLACED TO [facility] NEUROLOGY DEPARTMENT FOR SCHEDULING DEEPAK APPOINTMENT WITH DR. GARCIA. PATIENT ABLE TO BE PLACED ON WAIT LIST TO BE PRIORITIZED FOR VISIT IN THE FUTURE SOONER THAN OCTOBER, SPOKE TO OPAL AT MD OFFICE WHO REPORTS THAT PATIENT CANNOT HAVE SCHEDULED BOTOX INJECTION UNTIL REFERRED BY NEUROLOGIST. PATIENT'S MANAGEMENT OF CHRONIC MEDICAL CONDITIONS IS IMPACTED BY POOR AVAILABILITY FOR APPROPRIATE SPECIALIST FOLLOW UP. EDUCATED PATIENT ON IMPORTANCE OF DECREASING TIME STANDING GIVEN HISTORY OF FALLS AND SYNCOPE, RECOMMENDED FOR PATIENT TO PERFORM STANDING TASKS SEATED INCLUDING BRUSHING TEETH, SHOWERING, PREPARING MEALS, ALSO RECOMMENDED FOR PATIENT TO TAKE SEATED REST BREAKS PRIOR TO FATIGUE OR ONSET OF SYMPTOMS. ORTHOSTATIC VITALS NEGATIVE ON ASSESSMENT TODAY. PATIENT REPORTS LIMITED P.O. INTAKE AND HYDRATION BUT DEMONSTRATED UNREMARKABLE VITAL SIGNS AND BLOOD SUGAR. EDUCATED PATIENT ON IMPORTANCE OF INCREASING HYDRATION GIVEN INTENSITY OF MIGRAINES. PATIENT HAS NOT DEMONSTRATED PROGRESS TOWARDS MOBILITY GOALS AND IS LIKELY APPROACHING MAXIMAL BENEFIT FROM HOME PT SERVICES. EDUCATED PATIENT AND SON ON DISCHARGE PLANNING TO DISCHARGE WITH MAXIMUM BENEFIT AT END OF EPISODE. EDUCATED SON ON-CALL US FIRST POLICY, SURVEY, AND ON-CALL HOURS</paragraph> Encounters Start Date/Time End Date/Time Encounter Type Admission Type Attending [facility] Care Facility Care Department Encounter ID Discharge Date Discharge Status Discharge Condition Discharge Reason Percent Goals Met 2025-04-25 00:00:00 2025-06-23 00:00:00 Outpatient [facility] [id number] 20.00
== END 2025-05-20 18:29 | disposition home or self-care (01) ==
LOC: HO.MRI 18:28
PROVIDERS: PCP General Practice; Visit Provider General Practice
DX: M25.512 Pain in left shoulder (principal); G89.29 Other chronic pain
CPT/HCPCS: 73221

== ENCOUNTER 2025-06-30 16:27 | Outpatient (REF) | payer MEDICAID, SELFPAY ==
--- NOTE | ~2025-06-30 | CT_ITS ---
EXAMINATION: CT CHEST WITHOUT CONTRAST CLINICAL INFORMATION: R91.8 - Other nonspecific abnormal finding of lung field COMPARISON: June 22, 2024 TECHNIQUE: Multidetector volumetric CT imaging of the chest was done. Axial MIP volume rendering provided. Sagittal and coronal reformatted images were obtained. This CT examination was performed using dose optimization techniques as appropriate, variously including the following: *Automated exposure control *Adjustment of mA and/or kV according to patient size (this includes techniques or standardized protocols for targeted exams where dose is matched to indication/reason for exam; i.e. extremities or head) *Use of iterative reconstruction technique DLP: 235 mGY*cm FINDINGS: LUNGS: Axial CT #4 image 83/134: 3 mm right middle lobe pulmonary nodule is stable. Lungs are clear otherwise. MEDIASTINUM: There is a small sliding hiatal hernia. CORONARY ARTERY CALCIFICATION: Present PLEURA: There is no pleural effusion. No pleural mass or thickening. AXILLA: No lymphadenopathy. UPPER ABDOMEN: Small ill-defined low attenuating area in the posterior right hepatic lobe is stable (CT #3, 45/54). OSSEOUS STRUCTURES: There is motion artifact through the body of the sternum. CT/CT chest wo IV con IMPRESSION: Stable pulmonary nodule in the right middle lobe requires no further follow-up. Fleischner guidelines were followed. Electronically signed by: Nic Shaw MD 06/30/2025 05:19 PM EDT
--- NOTE | ~2025-06-30 | XR_ITS ---
EXAMINATION: XR CERVICAL SPINE CLINICAL INFORMATION: PAIN COMPARISON: None available. TECHNIQUE: 5 views of the cervical spine were obtained. FINDINGS: There is no prevertebral edema. There is mild disc space narrowing between C3-4 and C6-7 with small marginal osteophytes. There are also uncovertebral osteophytes. There is no bony foraminal narrowing on the oblique views. XR/XR cervical spine 4V IMPRESSION: Mild multilevel degenerative changes. Electronically signed by: Nic Shaw MD 06/30/2025 05:26 PM EDT RP
--- OUTSIDE RECORDS SUMMARY | 2025-06-30 16:42 | XMS_ITS | Encounter Summary ---
Author Organization [facility] Address [address] [place] [address] Care Team Providers Care Client Account Specialist Name Role Phone Shanice Jones MD Primary Care Provider [phone] Encounter Details Date Type Department Care Team (Late st Contact Info) Description 03/23/2025 Orders Only [facility] [address] [place] [address] Provider, MD Maurisio Social History Tobacco Use Types Packs/Day Years [...] Questionnaire -2 Score 2 03/26/2025 4:46 PM ESET Shanice Jones MD * Little interest or [...] Procedure Name Priority Date/Time Associated Diagnosis Comments XR CERVICAL SPINE 3V Routine 03/30/2025 12:09 PM EDT HM COLONOSCOPY Routine 10/07/2024 10:40 AM EST documented in this encounter Results * XR CERVICAL SPINE 3V (03/30/2025 12:09 PM EDT) Anatomical Region Laterality Modality Abdomen Radiographic Haylie ging 03/30/2025 12:0 9 PM EDT Narrative 03/30/2025 1:37 [place] [address] XRay Report Signed Patient: Lindsey Wilson MR#: [id number] : 1965 Acct:[id number] Age/Sex: 59 / F ADM Date: 03/30/25 Loc: [facility] Attending Dr: Shanice Jones MD Ordering Physician: Shanice Jones Date of Service: 03/30/25 Procedure(s): XR cervical spine 3V Accession Number(s): [id number] cc: Shanice Jones EXAMINATION: XR CERVICAL SPINE CLINICAL INFORMATION: PAIN COMPARISON: None available. TECHNIQUE: AP view cervical spine. Atlantoodontoid view. FINDINGS: Inadequate evaluation of the cervical spine. XR/XR cervical spine 3V IMPRESSION: Recommend lateral projection. Electronically signed by: Tomas Kathleen MD 03/30/2025 01:34 PM EDT RP Dictated By: Tmoas Michele MD Signed By: <Electronically signed by Tomas Hutchinson MD in OV> 03/30/25 1334 DD/ 1209 TD/TT: 03/30/25 1258 Artist Relationship Manager: Procedure Note Donotuseinterpreter, Image - 03/30/2025 [place] [address] XRay Report Signed Patient: Lindsey Wilson MR#: [id number] : 1965Acct:[id number] Age/Sex: 59 / FADM Date: 03/30/25 [facility]: Shanice Jones MD Ordering Physician: Shanice Jones Date of Service: 03/30/25 Procedure(s): XR cervical spine 3V Accession Number(s): [id number] cc: Shanice Jones EXAMINATION: XR CERVICAL SPINE [...] 03/30/25 1334 DD/ 1209 TD/TT: 03/30/25 1258 Artist Relationship Manager: Shanice Jones MD IMG XR PROCEDURES Final Result * Hm Colonoscopy (10/07/2024 10:40 AM EST) Colonoscopy Normal Normal Narrative Idalmis Huber 10/07/2024 10:40 AM EST Recommended 10 years . see results scanned in family law mediator on 10/07/2024 us Historical Provider HEALTH MAINTENANCE Edited Result - Final documented in this encounter Visit Diagnoses Not on filedocumented in this encounter Care Teams Client Account Specialist Relationship Specialty Start Date End Date Shnaice Jones MD [address] [place] [address] PCP - General Family Medicine 12/22/20 [facility] [employer] Pv 08/26/24 [facility] 12/26/24 documented as of this encounter
--- OUTSIDE RECORDS SUMMARY | 2025-06-30 16:42 | XMS_ITS | Encounter Summary ---
Author Organization [facility] Address [address] [place] [address] Phone Care Team Providers Care Room Attendant Name Role Phone Shanice Jones MD Primary Care Provider + Encounter Details Date Type Department Care Team (Late st Contact Info) Description 08/18/2022 Procedure Pass [facility], Ct Scan - [facility] [address] [place] [address] Social History Tobacco Use Types Packs/Day Years Used Date Smoking Tobacco: Never Smokeless Tobacco: Never Alcohol Use Standard Drinks/Week Comments Never 0 (1 standard drink = 0.6 oz pur e alcohol) Comments No Sex and Gender Information Value Date Recorded Sex Assigned at Female 03/02/2021 7:15 PM EDT Legal Sex Female 5:16 PM EDT Gender Identity Female 03/02/2021 7:15 PM EDT Sexual Orientation Choose not to disclose 2020 9:32 PM EDT documented as of this encounter Functional Status * Calculated C-SSRS Risk Score (Lifetime/Recent) Answer Date of Assessment Author No Risk Indicated 08/18/2022 7:05 PM EDT Betty Thomas RN * [place] Suicide Severity Rating Scale (Screener/Recent Self-Report) Question Answer Date of Assessment Author 1. Wish to be (Past 1 Month) No 08/18/2022 7:05 PM EDT Betty Thomas, HINA 2. Non-Specific Active Suici jared Thoughts (Past 1 Month) No 08/18/2022 7:05 PM EDT Radha Thomas RN 6. Suicidal Behavior (Lifetime) No 7:05 PM EDT Betty Thomas RN documented as of this encounter Plan of Treatment Upcoming Encounters Date Type Department Care Team (Late st Contact Info) Description 07/26/2025 11:30 AM EDT Office Visit [facility] Neurology [address] [place] [address] Mellisa Monterroso, STREET LIGHT SERVICER [address] [facility], [address]nd [place] [address] 12/09/2025 3:20 PM EST Office Visit [facility]ocrinology [address] [place] [address] Omari Potts DO [address] [place] [address] documented as of this encounter Visit Diagnoses Not on filedocumented in this encounter Additional Health Concerns Infection Onset Date Last Indicated Resolved Time CoV-Risk 06/05/2024 06/05/2024 06/16/2024 1:22 AM EDT documented as of this encounter Care Teams Room Attendant Relationship Specialty Start Date End Date Shanice Jones MD PCP - General 10/18/21 documented as of this encounter Additional Source Comments The information contained in this document represents components of the legal health record. It is not the complete legal health record.[facility]
--- OUTSIDE RECORDS SUMMARY | 2025-06-30 16:42 | XMS_ITS | Clinical Summary ---
Author Organization [facility] Address [address] [place] [address] Care Team Providers Care Manager Roofing Name Role Phone Unavailable Primary Care Provider [...] DTaP,Tdap,and Td Vaccines (1 - Tdap) 1984 Cervical Cancer Screening: P ap Smear 1986 Pneumococcal Vaccine: 50+ Ye ars (1 of 1 - PCV) 2015 Zoster Vaccines (1 of 2) 2015 COVID-19 Vaccine ( - 2023-2 5 season) 2024 Depression Screening 11/11/2024 Influenza Vaccine (#1) 2025 RSV Immunization Adult [...] patient's age to complete this topic Hepatitis B Vaccines Aged Out No long er eligible [...]
== END 2025-06-30 16:28 | disposition home or self-care (01) ==
LOC: HO.CT 16:27
PROVIDERS: PCP General Practice; Visit Provider Hospitalist
DX: R91.8 Other nonspecific abnormal finding of lung field (principal); M54.2 Cervicalgia
CPT/HCPCS: 71250; 72050

== ENCOUNTER → 2025-06-30 16:28 | Outpatient (BNV) | payer MEDICAID, SELFPAY | PROVIDERS: PCP General Practice; Visit Provider Radiology Diagnostic Radiology | DX: R91.1 Solitary pulmonary nodule (principal); M47.893 Other spondylosis, cervicothoracic region | CPT/HCPCS: 71250; 72050 ==

== ENCOUNTER 2025-08-06 15:34 | Outpatient (AMB) | payer MEDICAID, SELFPAY ==
[2025-08-06 15:35] VITALS: BP 116/70; PULSE 77; O2SAT 95
--- NOTE | 2025-08-06 15:35 | MHC.OFFVIS ---
Vital Signs 08/06/25 15:35 Height 5 ft 3 in BMI Reason not done Patient refused/unable BP 116/70 Blood Pressure Location Lt brachial Position Sitting Pulse 77 Pulse Source Pulse Oximeter Pulse Oximetry (%) 95 Oxygen Delivery Method Room Air Intake Visit Reasons: Hemoptysis Allergies latex (LATEX) Allergy (Intermediate, Verified 08/06/25 15:39) ITCH/RASH Penicillins Allergy (Intermediate, Verified 08/06/25 15:39) RASH magnesium Allergy (Verified 08/06/25 15:39) Palpitations milk Allergy (Verified 08/06/25 15:39) stomach pain, red rash eggs Allergy (Uncoded 10/01/24 14:12) stomach pain HPI Comments Details: The patient is a 60-year-old woman with a known history of diabetes and gastroparesis and history of asthma. She has been on Advair 500 for many years. She does have a rescue inhaler that she uses on a daily basis. She has been developing worsening shortness of breath with activity. Moderate severity. Does get better with rest. She also has a cough that is sometimes gags her. Pulmonary evaluation standpoint she did undergo pulmonary function studies back about a month ago demonstrating some small airways disease but otherwise no obstructive nor restrictive ventilatory defects. In addition to that she had a full cardiac workup with an echocardiogram and also a cardiac nuclear stress test. Those were okay per report. In the meantime she has been struggling with her gastroparesis and reflux disease. The followed closely by GI. Indeed she may have a component of micro aspirations as she describes regurgitation while she is sleeping the sometimes comes on her nose. In addition to that she is on lisinopril for her blood pressure and also for likely renal protection. While I was evaluating the patient appears that she has a tremor. She has been on Reglan. She does take a small dose of Reglan but with the tremor will be crucial to take her off it in case she does develop irreversible tremors. Therefore, we talked about other promotility agents that she can use the potentially can help her lungs as well. She is willing to try the azithromycin. However she does use SSRI so we have to check an EKG to make sure that her QT is stable. 10/02/2021 the patient is here for a pulmonary follow-up visit. Since we last spoke she is doing a little better. She is tolerating the Symbicort well. Her breathing has improved. She still has coughing episodes. [id number]-[id number] severity. And has to do with her reflux disease. We had to switch her from the Reglan to azithromycin for promotility due to her tremors. She continues to have some tremors but hopefully they will subside. She needs to get an EKG to assess her QT hopefully she can do that in the coming weeks. in the meantime she continues with the reflux diet. Again I emphasized that she needs to sleep elevated. However she cannot sleep supine. I did recommend she get risers for the head of the bed so she can sleep on her side and still maintain the head of bed elevated. the patient did have a chest x-ray and also blood work which we reviewed. 09/03/2022 the patient is here for a pulmonary follow-up visit. The patient still has multiple complaints. She has been coughing more. She states that she was coughing up some blood recently. however, none in the last few days. Denies any fevers or chills. Hard to know for sure if he coughs up the bladder if he vomited. She states that it was mixed in with some tissue or food. The patient does have significant gastroparesis. She has responded well to the azithromycin 3 times a week as a promotility agent. Initially I did recommend she stop it and then she became concerned because the medication has been helping. Patient understands that it can affect her QT conduction and therefore she needs to have an EKG she is going to continue the medicine. We talked about the other promotility agents but, she would tolerate regular due to her significant tremors. The patient has been sleeping on the sofa because she cannot sleep in her bed. She has significant snoring. The patient does wake up tired even after a full night's sleep. Her Sewaren score is elevated 13/24. The patient needs to undergo home sleep study at this time. She continues her respiratory therapy with good effect. The patient will benefit from a nebulizer machine in order to better administered the respiratory medications and provide bronchopulmonary hygiene to clear mucus production. prior to leaving today from the hospital to undergo a chest x-ray to make sure there is no and developing at this time if she does have an abnormal chest x-ray I will call her in order to request a CT scan of the chest. 11/16/2022 the patient is here for pulmonary follow-up visit. The patient still having some difficulty with headaches in addition to difficulty sleeping. The patient did have elevated daytime drowsiness with an elevated Sewaren score. Although her sleep study did not demonstrate significant sleep apnea. The patient does have underlying obstructive airway disease. A possibly the patient has significant nocturnal hypoxia. I will go ahead and perform an overnight oximetry at this time. If the patient qualifies and will start her on oxygen nighttime. She does continue to use respiratory therapy with good effect. Denies any recent exacerbations. Denies any further hemoptysis. 02/18/2023 the patient is here for a pulmonary follow-up visit. She still complaining off her cough and also hemoptysis. Is typically that be mucus is blood tinged. Usually the blood is mixed in with sputum. Bqhg-vp-ciqgfakp severity. Sometimes she gags when their own mucus and she needs to make CT clear remove the mucus out of her throat with her fingers. She does have issues with her swallow. The patient sometimes cannot protect her swallow. She did have a modified barium swallow back in 2020 that demonstrated some anomalies but no obvious penetration into her larynx. In view of the recurrent hemoptysis the patient did have a chest x-ray without any acute disease. Will go ahead and request a CT scan to further address the issue. In regards her issues with her secretions we did talk about a bronchoscopy once we have the CT scan in order to further address her airway issues gets in deep cultures to make sure she does not have a smoldering infection and make sure she is not does not have an endobronchial lesion that is causing the intermittent bleeding. Will have her follow-up after the CT scan a bronchoscopy at this time. She is using the oxygen at nighttime with good effect. She is planning a trip to [place]. I did recommend she call the [employer] to talked about options about using the oxygen when she arrives to her destination. 04/04/2023 The patient is here for a pulmonary follow up visit. The patient underwent a bronchoscopy. + evidence of tracheomalecia, moderate to severe. Her cultures were also positive for MRSA. The patient was started on Bactrim. Her cough is better. Has been complaining or sore throat she does have thrush right now. The patient does have daytime drowsiness. Sewaren score is elevated, the 11/03. The patient does use oxygen at nighttime for nocturnal hypoxia. Therefore will request an in-lab sleep study to address the question sleep apnea in to starting CPAP therapy. I do believe the positive airway pressure therapy will also help with her tracheomalacia. The patient needs better mucus clearance specially with severe tracheomalacia. Will provide with an Acapella valve to help with mucus clearance and provide good pulmonary hygiene. 07/26/2023 the patient is here for a pulmonary follow-up visit. Since we last spoke the patient did have a in-lab sleep study. We did review the results. The patient had a very limited study as she had a hard time sleeping. She did desaturate requiring the oxygen. Although her AHI was only 3. The patient did not qualify for CPAP. I do believe that this was a very poor study from her and that we will have to help with her sleep hygiene and then consider repeating the study. The patient has significant tracheobronchomalacia and also has significant daytime drowsiness. Sewaren still elevated 10/24. I do believe she will benefit from CPAP. Therefore, will work on her sleep and then consider repeating the sleep study the next time she arise. Patient also is using oxygen but it does fall off and sometimes causes significant dryness. She also been to try a oxygen mask. I will request 1 from the [employer]. She continues use her respiratory therapy. The patient has some chest fullness at this time. Respiratory exam is relatively normal. However, she does have significant tracheomalacia and also has his history of Staph colonization. Therefore she will continue with chest physical therapy. If the patient develops worsening chest congestion she will call in will consider giving her additional therapies. 04/21/2024 the patient is here for a pulmonary follow-up visit. She had multiple complaints. The patient did have issues with epistaxis primarily from the right nostril. She has been concerned because she has had twice and it bothers her because she is concerned that she is going to start breathing and choke. The patient also has been concerned about her tracheomalacia feeling like her trachea is going to close up and she will be able to breathe in have a bad outcome. The patient has also been choking up with secretions. Hard to cough. Moderate severity. Will go ahead and start her on azithromycin to try to help her with chronic bronchitis and mucus secretions specially with the tracheobronchomalacia. She will try [place] for lubricating her nose with the hopes that that would reduce some of the epistaxis. She will continue to use the oxygen at nighttime as is been affecting beneficial. In the meantime the patient did have a CT scan of the chest back in 03/30/2023 demonstrating numerous pulmonary nodules measuring from 2-4 mm in size. The patient should get another CAT scan at this time to address those findings. She will follow-up with me after her CT scan. If the patient has any worsening issues prior to the visit she will call for an earlier assessment. 07/06/2024 the patient is here for hospital follow-up visit. The patient recently was evaluated at [facility] after having flu-like symptoms. The patient had a CT of the brain demonstrating a 7 mm cerebral aneurysm. Therefore she did have an evaluation from Neurosurgery and she did undergo endovascular coiling. The patient tolerated procedure well although she did become confused and delusional during the hospitalization. The patient has been using the oxygen at nighttime. She still has daytime drowsiness and also has headaches. Appears that she does have a degree of sleep apnea. Will go ahead and request an in-lab sleep study at this time. Specially with altered mental status. Respiratory mitchell patient seems to be doing okay. CT scan the patient did have a CT scan in June has not been officially read although I did review it with her. Also compared to her previous CT scan that she had a [facility] and also had [facility] back last year. It appears that her nodular densities have decreased in size which is reassuring some of the nodules on cleared and other nodules appear to be stable. I do not see any new or concerning nodules. Therefore, the patient has been reassured although we still have to wait for the final read of the CT scan from Radiology. Will plan to repeat the CT scan in a year from now. She continues use her respiratory therapy with good effect. Will plan to follow-up after her in-lab sleep study. 10/01/2024 the patient is here for a pulmonary follow-up visit. Overall the patient is doing well. She is using the oxygen at nighttime. The oxygen therapy has been affecting beneficial. Although it is noisy. She does have daytime drowsiness with an Sewaren score that is elevated 10/04. The patient did undergo an in-lab sleep study. We did reviewed together. The patient appears to have underlying sleep apnea and will benefit from CPAP therapy. It appears that although the study was limited she does not need oxygen with her CPAP. Therefore, will go ahead and order APAP therapy that she can start this time. Once she gets situated with we can cancel the oxygen order. She also continues with respiratory therapy with good effect. Will have her return in 4 months to assess her response to CPAP. 02/02/2025 the patient is here for pulmonary follow-up visit. Overall the patient has been doing okay. She continues to have significant daytime drowsiness. She is developing headaches. She did have an elevated Sewaren score 10/04. Back in September 2024 we have sent a prescription for her to get started on APAP. And hold off on her oxygen. Based on this study she did not require oxygen along with the APAP. Although it is not clear what she has not received the APAP. She did come in today and she is concerned. At this time would like to start her on APAP without any oxygen. I did reassure her that we will then reassess to see if there is any oxygen needs but right now as it stands she does not need to use the oxygen with the APAP. She does have her from headaches therefore that is her major concern coming off the oxygen. We did reach out to the [employer] company to see if we can facilitate the approval in the delivery and the set up of the APAP since it has already been 3-4 months. 04/13/2025 the patient is here for a pulmonary follow-up visit. Overall the patient has been doing better. She did get her CPAP and she is doing very well. AHI is down to 0.7. CPAP therapy has been affecting beneficial she does use it for more than 4 hours a night. She does use a nasal mask and she does have some air leakage through the mouth. She may be better served with a fullface mask. Once we have 1 available will call her to see if she can try it and see if worse better for her. In the meantime the patient does have severe headaches and migraines and she can not tolerate a chinstrap. If she does decide to stay with a nasal mask we also talked about CPAP tape to close her mouth in case that will be of any use. She already has some dental pain and she has had some teeth the case which she has been very careful with her gingiva on her teeth and therefore the dry mouth can be a problem for her. In regards of her pulmonary nodules her last CT scan was back in the summer of 2023. Will plan to repeat the CAT scan in the summer in the follow-up afterwards. She is concerned about the nodules. I tried to reassure her that some of the nodules actually subsided in some of the other nodules are stable on small and will be Kelly difficult to remove. Right now there is no indication of any need for resection but will get the CAT scan in June and then will review together and see if there is anything that needs to be intervened on. 08/06/2025 the patient is here for pulmonary follow-up visit. Overall she is doing well. She is using his CPAP every night. CPAP therapy has been affecting beneficial. She is using it more than 4 hours a night in her AHI is down to 0.9. Average pressures closer to 10. Seems like the pressure settings are good right now. She does have a nasal pillow mask that has issues with air leakage. We had requested if fullface mask the last visit. Will go ahead and requested again. I did reach out to [employer] to make sure they can provide that for her. In the meantime the patient did have a CT scan of the chest that I personally reviewed. Pulmonary nodules have been stable so therefore no additional follow-up is warranted. Will continue to monitor her clinically. The patient did have a fracture of her right foot. She is going to see orthopedist soon. Also needs to see somebody for her shoulder. The patient will follow-up in 6-8 months if she has any issues prior to that she will call for an earlier assessment. [facility] Medical History Pulmonary nodules Asthma-COPD overlap syndrome Tracheomalacia Nocturnal hypoxia History of nephrolithiasis Tremors of nervous system Dyspnea PTSD (post-traumatic stress disorder) Delayed gastric emptying Chronic idiopathic constipation Post-op pain Acute hemorrhoid Increased BMI Anxiety History of uterine cancer Arthritis Back pain History of gastroenteritis Hypothyroid Diabetes GERD (gastroesophageal reflux disease) Depression Migraine Asthma History of tachycardia Tachycardia Coronary artery disease Hypertension Surgical History Hx of colonoscopy History of endoscopy History of section History of cardiac catheterization History of hysterectomy Family History Brother Stomach cancer Esophageal cancer Colon cancer Maternal Aunt History of breast cancer Paternal Aunt History of breast cancer Other Cancer Diabetes Heart problem Kidney problem Liver problem Thyroid condition Social History Household Members: Children Household Members Other:: lives with son Alcohol intake: never Patient Tobacco Use Status: Never used Tobacco Current occupational status: disabled Review of Systems Const Denies night sweats ENT Denies change in voice, Reports dysphagia, Denies lip swelling, Denies mouth pain, Reports nasal congestion, Reports nasal discharge and Denies tongue swelling Card Denies chest pain and Reports dyspnea on exertion Resp Denies change in phlegm color, Denies chest congestion, Reports cough, Denies hemoptysis, Denies excessive phlegm production and Reports dyspnea on exertion GI Denies abdominal pain, Reports dysphagia, Reports early satiety, Reports dyspepsia and Reports heartburn Musc Denies no additional complaints and Reports abnormal gait Neuro Denies Neuro-related abnormal movements, Reports abnormal gait and Reports paresthesias Psych Denies no additional complaints Omar/Lymph Denies easy bleeding and Denies lymphadenopathy Aller/Immun Denies lip swelling and Denies tongue swelling Physical Exam Vital Signs: Last Vital Signs Pulse 77 08/06/25 15:35 BP 116/70 08/06/25 15:35 Pulse Ox 95 08/06/25 15:35 Oxygen Delivery Method Room Air 08/06/25 15:35 Const General: alert HEENT General nose exam: Abnormal external nose present and Nasal discharge present Eyes Pupils: Equal, round and reactive pupils present Neck Neck: Yes normal visual inspection, Yes full ROM and Yes no lymphadenopathy Chest Chest palpation & inspection: normal inspection of the chest Resp Auscultation: diminished lung sounds Cardio Rate: regular rate Rhythm: regular rhythm Heart sounds: S1 normal heart sound present and S2 normal heart sound present GI Palpation (GI): Soft to palpation and nontender Auscultation: normal bowel sounds General: Yes no CVA tenderness Back/Spine/Pelvis Back: no CVA tenderness Skin General skin exam: rashes and/or lesions noted Neuro Cranial nerves: Yes Equal, round and reactive pupils present Assessment & Plan Assessment & Plan (1) JENNYFER (obstructive sleep apnea): Code(s): G47.33 - Obstructive sleep apnea (adult) (pediatric) Category: Medical (2) Dyspnea: Code(s): R06.00 - Dyspnea, unspecified Category: Medical Qualifiers: Dyspnea type: dyspnea on exertion Qualified Code(s): R06.09 - Other forms of dyspnea (3) GERD (gastroesophageal reflux disease): Code(s): K21.9 - Gastro-esophageal reflux disease without esophagitis Category: Medical Qualifiers: Esophagitis presence: without esophagitis Qualified Code(s): K21.9 - Gastro-esophageal reflux disease without esophagitis (4) Tracheomalacia: Code(s): J39.8 - Other specified diseases of upper respiratory tract Category: Medical (5) Nocturnal hypoxia: Code(s): G47.34 - Idiopathic sleep related nonobstructive alveolar hypoventilation Category: Medical (6) Pulmonary nodules: Code(s): R91.8 - Other nonspecific abnormal finding of lung field Category: Medical Plan cont APAP on RA. Will request FM, AHI 0.7 CPT with acapella valve and nebulizer CT chest in 06/2025 stable nodules, no additional serial imaging warranted F/U 4-6 months Coding Level of Care Code Est Pt Level 4 (04412) Complex EM visit Add On G2211 Diagnoses JENNYFER (obstructive sleep apnea) G47.33 Dyspnea on exertion R06.09 Dyspnea type: dyspnea on exertion Gastroesophageal reflux disease without esophagitis K21.9 Esophagitis presence: without esophagitis Tracheomalacia J39.8 Nocturnal hypoxia G47.34 Pulmonary nodules R91.8 Time Spent (min) 17
--- OUTSIDE RECORDS SUMMARY | 2025-08-06 15:55 | XMS_ITS | Encounter Summary ---
Author Organization [facility] Address [address] [place] [address] Phone Care Team Providers Care Transition Teacher Name Role Phone Shanice Jones MD Primary Care Provider + Shanice Jones MD Primary Care Provider + Encounter Details Date Type Department Care Team (Late st Contact Info) Description 05/03/2023 Procedure Pass [facility], Ct Scan - [facility] [address] [place] [address] Social History Tobacco Use Types Packs/Day Years Used Date Smoking Tobacco: Never Smokeless Tobacco: Never Alcohol Use Standard Drinks/Week Comments Never 0 (1 standard drink = 0.6 oz pur e alcohol) Education Answer Date Recorded Are you interested in more education? Not on luan e 03/08/2023 Are you concerned about learning? Not on file 03/08/2023 No 03/08/2023 No 03/08/2023 Digital Access Answer Date Recorded No 04/09/2023 No 04/09/2023 Reliable internet access at home? Not on file 04/09/2023 Device with a working camera? Not on file Comments No Sex and Gender Information Value Date Recorded Sex Assigned at Female 03/02/2021 7:15 PM EDT Legal Sex Female 5:16 PM EDT Gender Identity Female 03/02/2021 7:15 PM EDT Sexual Orientation Choose not to disclose 2020 9:32 PM EDT documented as of this encounter Functional Status * Calculated C-SSRS Risk Score (Lifetime/Recent) Answer Date of Assessment Author No Risk Indicated 05/03/2023 12:19 PM EDT Kamilah Charles RN * [place] Suicide Severity Rating Scale (Screener/Recent Self-Report) Question Answer Date of Assessment Author 1. Wish to be (Past 1 Month) No 023 12:19 PM EDT Kamilah Charles RN 2. Non-Specific Active Suici jared Thoughts (Past 1 Month) No 05/03/2023 12:19 PM EDT Kamilah Charles RN 6. Suicidal Behavior (Lifetime) No 12:19 PM EDT Kamilah Charles RN documented as of this encounter Plan of Treatment Upcoming Encounters Date Type Department Care Team (Late st Contact Info) Description 12/09/2025 3:20 PM EST Office Visit [facility] [address] [place] [address] [place] [address] Omari Potts DO [address] [place] [id number] 01/31/2026 1:30 PM EDT Office Visit [facility] Neurology [address] [place] [address] [place] [address] Gabe Ramsey MD [address] [place] [address], [address] [place] [address] documented as of this encounter Visit Diagnoses Not on filedocumented in this encounter Additional Health Concerns Infection Onset Date Last Indicated Resolved Time CoV-Risk 06/05/2024 06/05/2024 06/16/2024 1:22 AM EDT documented as of this encounter Care Teams Transition Teacher Relationship Specialty Start Date End Date Shanice Jones MD PCP - General 10/18/21 07/16/25 Shanice Jonse MD [address] [place] [id number] PCP - General Family Medicine 07/17/25 documented as of this encounter Additional Source Comments The information contained in this document represents components of the legal health record. It is not the complete legal health record.[facility]
--- OUTSIDE RECORDS SUMMARY | 2025-08-06 15:55 | XMS_ITS | Encounter Summary ---
Author Organization [facility] Address [address] [place] [address] Phone Care Team Providers Care Street Superintendent Name Role Phone Shanice Jones MD Primary Care Provider + Shanice Jones MD Primary Care Provider + Encounter Details Date Type Department Care Team (Late st Contact Info) Description 08/13/2022 Procedure Pass [facility], Ct Scan - [facility] [address] [place] [address] Social History Tobacco Use Types Packs/Day Years [...] Date of Assessment Author No Risk Indicated 08/13/2022 2:30 PM EDT Teresa Rubio RN * [place] Suicide Severity Rating Scale (Screener/Recent Self-Report) Question Answer Date of Assessment Author 1. Wish to be (Past 1 Month) No 022 2:30 PM EDT Teresa Valerio, RN 2. Non-Specific Active Suici jared Thoughts (Past 1 Month) No 08/13/2022 2:30 PM EDT Teresa Valerio, RN 6. Suicidal Behavior (Lifetime) No 2:30 PM EDT Teresa Valerio, RN documented as of this encounter Plan of Treatment Upcoming Encounters Date Type Department Care Team (Late st Contact Info) Description 12/09/2025 3:20 PM EST Office Visit [facility] [address] [place] [address] Omari Potts DO [address] [place] [address] 01/31/2026 1:30 PM EDT Office Visit [facility] Neurology [address] [place] [address] Gabe Ramsey MD [address] [place] [address], [address] [place] [address] documented as of this encounter Visit Diagnoses Not on filedocumented in this encounter Additional Health Concerns Infection Onset Date Last Indicated Resolved Time CoV-Risk 06/05/2024 06/05/2024 06/16/2024 1:22 AM EDT documented as of this encounter Care Teams Street Superintendent Relationship Specialty Start Date End Date Shanice Jones MD PCP - General 10/18/21 07/16/25 Shanice Jones MD [address] [place] [address] PCP - General Family Medicine 07/17/25 documented as of this encounter Additional Source Comments The information contained in this document represents components of the legal health record. It is not the complete legal health record.[facility]
--- OUTSIDE RECORDS SUMMARY | 2025-08-06 15:55 | XMS_ITS | Encounter Summary ---
Author Organization [facility] Address [address] [place] [address] Phone Care Team Providers Care Manager Document Control Name Role Phone Shanice Jones MD Primary Care Provider + Shanice Jones MD Primary Care Provider + Encounter Details Date Type Department Care Team (Late st Contact Info) Description 06/05/2024 Procedure Pass [facility], Ct Scan - [facility] [address] [place] [address] Social History Tobacco Use Types Packs/Day Years [...] Date of Assessment Author No Risk Indicated 06/05/2024 1:53 AM EDT Gabby Whitehead RN * [place] Suicide Severity Rating Scale (Screener/Recent Self-Report) Question Answer Date of Assessment Author 1. Wish to be (Past 1 Month) No 06/05/2024 1:53 AM EDT Gabby Norris RN 2. Non-Specific Active Suicidal Thoughts (Past 1 Month) No 06/05/2024 1:53 AM EDT Gabby Norris RN 6. Suicidal Behavior (Lifetime) No 06/05/2024 1:53 AM EDT Gabby Norris RN documented as of this encounter Plan of Treatment Upcoming Encounters Date Type Department Care Team (Late st Contact Info) Description 12/09/2025 3:20 PM EST Office Visit [facility] [address] [place] [address] Omari Potts DO [address] [place] [address] 01/31/2026 1:30 PM EDT Office Visit [facility] Neurology [address] [place] [address] Gabe Ramsey MD [address] [place] [address], 2nd [place] [address] [email or web address] documented as of this encounter Visit Diagnoses Not on filedocumented in this encounter Additional Health Concerns Infection Onset Date Last Indicated Resolved Time CoV-Risk 06/05/2024 06/05/2024 06/16/2024 1:22 AM EDT documented as of this encounter Care Teams Manager Document Control Relationship Specialty Start Date End Date Shanice Jones MD PCP - General 10/18/21 07/16/25 Shanice Jones MD [address] [place] [address] PCP - General Family Medicine 07/17/25 documented as of this encounter Additional Source Comments The information contained in this document represents components of the legal health record. It is not the complete legal health record.[facility]
--- OUTSIDE RECORDS SUMMARY | 2025-08-06 15:55 | XMS_ITS | Encounter Summary ---
Author Organization [facility] Address [address] [place] [address] Phone Care Team Providers Care Power Mule Operator Name Role Phone Shanice Jones MD Primary Care Provider + Shanice Jones MD Primary Care Provider + Encounter Details Date Type Department Care Team (Late st Contact Info) Description 08/18/2022 Procedure Pass [facility], Ct Scan - [facility] 30 [place] [address] Social History Tobacco Use Types Packs/Day Years [...] 7:05 PM EDT Betty Thomas RN * [place] Suicide Severity Rating Scale (Screener/Recent Self-Report) Question Answer Date of Assessment Author 1. Wish to be (Past 1 Month) No 08/18/2022 7:05 PM EDT Betty Thomas RN 2. Non-Specific Active Suici jared Thoughts (Past 1 Month) No 08/18/2022 7:05 PM EDT Radha Thomas RN 6. Suicidal Behavior (Lifetime) No 7:05 PM EDT Betty Thomas RN documented as of this encounter Plan of Treatment Upcoming Encounters Date Type Department Care Team (Late st Contact Info) Description 12/09/2025 3:20 PM EST Office Visit [facility] [address] [place] [address] Omari Potts DO [address] [place] [address] 01/31/2026 1:30 PM EDT Office Visit [facility] Neu[facility] [address] [place] [address] Gabe Ramsey MD [address] [place] [address], 2nd [place] [address] documented as of this encounter Visit Diagnoses Not on filedocumented in this encounter Additional Health Concerns Infection Onset Date Last Indicated Resolved Time CoV-Risk 06/05/2024 06/05/2024 06/16/2024 1:22 AM EDT documented as of this encounter Care Teams Power Mule Operator Relationship Specialty Start Date End Date Shanice Jones MD PCP - General 10/18/21 07/16/25 Shanice Jones MD [address] [place] [address] PCP - General Family Medicine 07/17/25 documented as of this encounter Additional Source Comments The information contained in this document represents components of the legal health record. It is not the complete legal health record.[facility]
--- OUTSIDE RECORDS SUMMARY | 2025-08-06 15:55 | XMS_ITS | Encounter Summary ---
Author Organization [facility] Address [address] [place] [address] Phone Care Team Providers Care Dock Loader Name Role Phone Shanice Jones MD Primary Care Provider + Shanice Jones MD Primary Care Provider + Encounter Details Date Type Department Care Team (Late st Contact Info) Description 08/13/2022 Procedure Pass [facility], Ct Scan - [facility] [address] [place] [address] Social History Tobacco Use Types Packs/Day Years [...] 2:30 PM EDT Teresa Rubio RN * [place] Suicide Severity Rating Scale (Screener/Recent Self-Report) Question [...] 3:20 PM EST Office Visit [facility] [address] [place] [address] Omari Potts DO [address] [place] [address] 01/31/2026 1:30 PM EDT Office Visit [facility] [address] [place] [address] Gabe Ramsey MD [address] [place] [address], 2nd [place] [address] documented as of this encounter Visit Diagnoses Not on filedocumented in this encounter Additional Health Concerns Infection Onset Date Last Indicated Resolved Time CoV-Risk 06/05/2024 06/05/2024 06/16/2024 1:22 AM EDT documented as of this encounter Care Teams Dock Loader Relationship Specialty Start Date End Date Shanice Jones MD PCP - General 10/18/21 07/16/25 Shanice Jones MD [address] [place] [address] PCP - General Family Medicine 07/17/25 documented as of this encounter Additional Source Comments The information contained in this document represents components of the legal health record. It is not the complete legal health record.[facility]
--- OUTSIDE RECORDS SUMMARY | 2025-08-06 15:56 | XMS_ITS | Encounter Summary ---
Author Organization [facility] Address [address] [place] [address] Care Team Providers Care Protector Plate Attacher Name Role Phone Shanice Jones MD Primary Care Provider [phone] Sanaz Machuca Unavailable Encounter Details Date Type Department Care Team (Late st Contact Info) Description 03/23/2025 Orders Only [facility] [address] [place] [address] Provider, MD Maurisio Social History Tobacco Use [...] Care Team (Late st Contact Info) Description 08/10/2025 9:00 AM EDT Office Visit [facility] [address] [place] [address] Shanice Jones MD [address] [place] [address] documented as of this encounter Procedures Procedure Name Priority Date/Time Associated Diagnosis Comments XR CERVICAL SPINE 3V Routine 03/30/2025 12:09 PM EDT COLONOSCOPY Routine 10/07/2024 10:40 AM EST documented in this encounter Results * XR CERVICAL SPINE 3V (03/30/2025 12:09 PM EDT) Anatomical Region Laterality Modality Abdomen Radiographic Haylie ging 03/30/2025 12:0 9 PM EDT Narrative 03/30/2025 1:37 PM EDT [address] [address] XRay Report Signed Patient: Lindsey Wilson MR#: [id number] : 1965 Acct:[id number] Age/Sex: 59 / F ADM Date: 03/30/25 [facility]: Shanice Jones MD Ordering Physician: Shanice Jones Date of Service: 03/30/25 Procedure(s): XR cervical spine 3V Accession Number(s): [id number] cc: Shanice Jones EXAMINATION: XR CERVICAL SPINE [...] 03/30/25 1334 DD/ 1209 TD/TT: 03/30/25 1258 Link Trainer Operator: Procedure Note Donotuseinterpreter, Image - 03/30/2025 [place] [address] XRay Report Signed Patient: Lindsey Wilson MR#: [id number] : 1965Acct:[id number] Age/Sex: 59 / FADM Date: 03/30/25 [facility] Att[facility] Dr: Shanice Jones MD Ordering Physician: Shanice Jones Date of Service: 03/30/25 Procedure(s): XR cervical spine 3V Accession Number(s): [id number] cc: Shnaice Jones EXAMINATION: XR CERVICAL SPINE CLINICAL INFORMATION: [...] 03/30/25 1334 DD/ 1209 TD/TT: 03/30/25 1258 Link Trainer Operator: us Shanice Jones MD IMG XR PROCEDURES Final Result * Hm Colonoscopy (10/07/2024 10:40 AM EST) Colonoscopy Normal Normal Narrative Idalmis Huber - 10/07/2024 10:40 AM EST Recommended 10 years . see results scanned in director paid media on 10/07/2024 Historical Provider HEALTH MAINTENANCE Edited Result - Final documented in this encounter Visit Diagnoses Not on filedocumented in this encounter Care Teams Protector Plate Attacher Relationship Specialty Start Date End Date Shanice Jones MD [address] [place] [address] PCP - General Family Medicine 12/22/20 Sanaz Machuca 07/19/25 07/23/25 Cary Alonzo Blocker Metal BaseHouse Wrecker 08/26/24 Himanshu Caring 12/26/24 documented as of this encounter
--- OUTSIDE RECORDS SUMMARY | 2025-08-06 15:56 | XMS_ITS | Encounter Summary ---
Author Organization [facility] Address [address] [place] [address] Phone Care Team Providers Care Major Appliance Assembly Supervisor Name Role Phone Shanice Jones MD Primary Care Provider + Encounter Details Date Type Department Care Team (Late st Contact Info) Description 07/17/2025 Procedure Pass [facility], Ct Scan - [facility] [address] [place] [address] Social History Tobacco Use Types Packs/Day Years Used Date Smoking Tobacco: Never Smokeless Tobacco: Never Alcohol Use Standard Drinks/Week Comments Never 0 (1 standard drink = 0.6 oz pur e alcohol) Education Answer Date Recorded Are you interested in more education? Not on luan e 03/08/2023 Are you concerned about learning? Not on file 03/08/2023 No 03/08/2023 No 03/08/2023 Food Answer Date Recorded Within the past 6 months we worried whether our food would run out before we got money to buy more. Unable to assess 025 Within the past 6 months the food we bought just didn't last and we didn't have enough money to get more. Unable to assess 07/17/2025 Residential Stability Answer Date Recor ded What is your housing situation today? I have reggie sing 07/17/2025 How many times have you move d in the past 12 months? Zero (I did not move) 07/17/2025 Paying for Meds Answer Date Recorded Do you have trouble paying for medicines? Unable to assess 07/17/2025 Paying Utility Bills Answer Date Record ed Do you have trouble paying y our heating or electricity bill? Unable to assess 07/17/2025 Transportation Answer Date Recorded Has the lack of transportati on kept you from medical appointments or from getting medications? Unable to assess 07/17/2025 Digital Access Answer Date Recorded No 07/17/2025 Yes 07/17/2025 Do you have reliable internet access at home? Ye s 07/17/2025 Do you have a device (e.g., phone, tablet, computer) with a working camera? Yes 07/17/2025 Intimate Partner Violence Answer Date R ecorded Are you denied basic needs s uch as food, clothing, or medical care? No 07/17/2025 In the past 12 months have y ou been in a relationship with a person who hurts, threatens, or tries to control you? No 07/17/2025 Are you denied basic needs s uch as food, clothing, or medical care? No 07/17/2025 In the past 12 months have y ou been in a relationship with a person who hurts, threatens, or tries to control you? No 07/17/2025 Comments No Sex and Gender Information Value Date Recorded Sex Assigned at Female 03/02/2021 7:15 PM EDT Legal Sex Female 5:16 PM EDT Gender Identity Female 03/02/2021 7:15 PM EDT Sexual Orientation Choose not to disclose 2020 9:32 PM EDT documented as of this encounter Functional Status * Calculated C-SSRS Risk Score (Lifetime/Recent) Answer Date of Assessment Author No Risk Indicated 07/17/2025 8:00 PM EDT Nellie Bustamante RN * [place] Suicide Severity Rating Scale (Screener/Recent Self-Report) Question Answer Date of Assessment Author 1. Wish to be (Past 1 Month) No 025 8:00 PM EDT Nellie Bustamante RN 2. Non-Specific Active Suici jared Thoughts (Past 1 Month) No 07/17/2025 8:00 PM EDT Sara Bustamante ea, RN 6. Suicidal Behavior (Lifetime) No 8:00 PM EDT Nellie Bustamante RN documented as of this encounter Plan of Treatment Upcoming Encounters Date Type Department Care Team (Late st Contact Info) Description 12/09/2025 3:20 PM EST Office Visit [facility] [address] [place] [address] Omari Potts DO [address] [place] [address] [email or web address] 01/31/2026 1:30 PM EDT Office Visit [facility] Neu[facility] [address] [place] [address] Gabe Ramsey MD [address] [place] [address], 2[address] [place] [address] [email or web address] documented as of this encounter Visit Diagnoses Not on filedocumented in this encounter Care Teams Major Appliance Assembly Supervisor Relationship Specialty Start Date End Date Shanice Jones MD [address] [place] [address] PCP - General Family Medicine 07/17/25 documented as of this encounter Additional Source Comments The information contained in this document represents components of the legal health record. It is not the complete legal health record.[facility]
--- OUTSIDE RECORDS SUMMARY | 2025-08-06 15:56 | XMS_ITS | Encounter Summary ---
Author Organization [facility] Address [address] [place] [address] Phone Care Team Providers Care Delivery Driver Name Role Phone Shanice Jones MD Primary Care Provider + Shanice Jones MD Primary Care Provider + Encounter Details Date Type Department Care Team (Late st Contact Info) Description 10/07/2024 Procedure Pass [facility] Admitting Dept Virtual Department [address] [place] [address] Social History Tobacco Use Types Packs/Day Years [...] with a working camera? Not on file Intimate Partner Violence Answer Date R ecorded Are you denied basic needs s uch as food, clothing, or medical care? No 10/07/2024 In the past 12 months have y ou been in a relationship with a person who hurts, threatens, or tries to control you? No 10/07/2024 Are you denied basic needs s uch as food, clothing, or medical care? No 10/07/2024 In the past 12 months have y ou been in a relationship with a person who hurts, threatens, or tries to control you? No 10/07/2024 Comments No Sex and Gender Information Value Date Recorded Sex Assigned at Female 03/02/2021 7:15 PM EDT Legal Sex Female 5:16 PM EDT Gender Identity Female 03/02/2021 7:15 PM EDT Sexual Orientation Choose not to disclose 2020 9:32 PM EDT documented as of this encounter Plan of Treatment Upcoming Encounters Date Type Department Care Team (Late st Contact Info) Description 12/09/2025 3:20 PM EST Office Visit [facility] [address] [place] [address] Omari Potts DO [address] [place] [address] 01/31/2026 1:30 PM EDT Office Visit [facility] [address] [place] [address] Gabe Ramsey MD [address] [place] [address], 2nd [place] [address] documented as of this encounter Visit Diagnoses Not on filedocumented in this encounter Care Teams Delivery Driver Relationship Specialty Start Date End Date Shanice Jones MD PCP - General 10/18/21 07/16/25 Shanice Jones MD [address] [place] [address] PCP - General Family Medicine 07/17/25 documented as of this encounter Additional Source Comments The information contained in this document represents components of the legal health record. It is not the complete legal health record.[facility]
--- OUTSIDE RECORDS SUMMARY | 2025-08-06 15:56 | XMS_ITS | Encounter Summary ---
Author Organization [facility] Address [address] [place] [address] Phone Care Team Providers Care Set Up Person Name Role Phone Shanice Jones MD Primary Care Provider + Encounter Details Date Type Department Care Team (Late st Contact Info) Description 07/17/2025 Procedure Pass [facility], Ct Scan - [facility] [address] [place] [address] Social History Tobacco Use Types Packs/Day Years [...] 8:00 PM EDT Nellie Bustamante RN * [place] Suicide Severity Rating Scale (Screener/Recent Self-Report) Question [...] PM EST Office Visit [facility] [address] [place] [address] Omari Potts DO [address] [place] [address] [email or web address] 01/31/2026 1:30 PM EDT Office Visit [facility] [address] [place] [address] Gabe Ramsey MD [address] [place] [address], 2nd [place] [address] [email or web address] documented as of this encounter Visit Diagnoses Not on filedocumented in this encounter Care Teams Set Up Person Relationship Specialty Start Date End Date Shanice Jones MD [address] [place] [address] PCP - General Family Medicine 07/17/25 documented as of this encounter Additional Source Comments The information contained in this document represents components of the legal health record. It is not the complete legal health record.[facility]
--- OUTSIDE RECORDS SUMMARY | 2025-08-06 15:56 | XMS_ITS | Encounter Summary ---
Author Organization [facility] Address [address] [place] [address] Phone Care Team Providers Care Napping Machine Operator Name Role Phone Shanice Jones MD Primary Care Provider + Shanice Jones MD Primary Care Provider + Encounter Details Date Type Department Care Team (Late st Contact Info) Description 06/05/2024 Procedure Pass [facility], Ct Scan - [facility] [address] [place] [address] Social History Tobacco Use Types Packs/Day Years [...] 1:53 AM EDT Gabby Whitehead RN * [place] Suicide Severity Rating Scale (Screener/Recent Self-Report) Question [...] 3:20 PM EST Office Visit [facility] [address] [place] [address] Omari Potts DO [address] [place] [address] 01/31/2026 1:30 PM EDT Office Visit [facility] [address] [place] [address] Gabe Ramsey MD [address] [place] [address], 2nd [place] [address] [email or web address] documented as of this encounter Visit Diagnoses Not on filedocumented in this encounter Additional Health Concerns Infection Onset Date Last Indicated Resolved Time CoV-Risk 06/05/2024 06/05/2024 06/16/2024 1:22 AM EDT documented as of this encounter Care Teams Napping Machine Operator Relationship Specialty Start Date End Date Shanice Jones MD PCP - General 10/18/21 07/16/25 Shanice oJnes MD [address] [place] [address] PCP - General Family Medicine 07/17/25 documented as of this encounter Additional Source Comments The information contained in this document represents components of the legal health record. It is not the complete legal health record.[facility]
--- OUTSIDE RECORDS SUMMARY | 2025-08-06 15:58 | XMS_ITS | Encounter Summary ---
Author Organization [facility] Address [address] [place] [address] Phone Care Team Providers Care Rn Case Manager Hospice Name Role Phone Shanice Jones MD Primary Care Provider + Shanice Jones MD Primary Care Provider + Encounter Details Date Type Department Care Team (Late st Contact Info) Description 11/10/2024 Procedure Pass [facility], Ct Scan - [facility] [address] [place] [address] Social History Tobacco Use Types Packs/Day Years [...] as food, clothing, or medical care? No 11/12/2024 In the past 12 months have y ou been in a relationship with a person who hurts, threatens, or tries to control you? No 11/12/2024 Are you denied basic needs s uch as food, clothing, or medical care? No 11/12/2024 In the past 12 months have y ou been in a relationship with a person who hurts, threatens, or tries to control you? No 11/12/2024 Comments No Sex and Gender Information Value Date Recorded Sex Assigned at Female 03/02/2021 7:15 PM EDT Legal Sex Female 5:16 PM EDT Gender Identity Female 03/02/2021 7:15 PM EDT Sexual Orientation Choose not to disclose 2020 9:32 PM EDT documented as of this encounter Functional Status * Calculated C-SSRS Risk Score (Lifetime/Recent) Answer Date of Assessment Author No Risk Indicated 11/12/2024 8:31 AM Gabi Ochoa RN * Springer Suicide Severity Rating Scale (Screener/Recent Self-Report) Question Answer Date of Assessment Author 1. Wish to be (Past 1 Month) No 025 8:31 AM Gabi Ochoa, HINA 2. Non-Specific Active Suici jared Thoughts (Past 1 Month) No 11/12/2024 8:31 AM Gabi Ochoa , HINA 6. Suicidal Behavior (Lifetime) No 8:31 AM Gabi Ochoa, HINA documented as of this encounter Plan of Treatment Upcoming Encounters Date Type Department Care Team (Late st Contact Info) Description 12/09/2025 3:20 PM EST Office Visit [facility] [address] [place] [address] [place] [address] Omari Potts DO [address] [place] [address] 01/31/2026 1:30 PM EDT Office Visit [facility] Neu[facility] [address] [place] [address] Gabe Ramsey MD [address] [place] [address], 2nd [place] [address] documented as of this encounter Visit Diagnoses Not on filedocumented in this encounter Care Teams Rn Case Manager Hospice Relationship Specialty Start Date End Date Shanice Jones MD PCP - General 10/18/21 07/16/25 Shanice Jones MD [address] [place] [phone] PCP - General Family Medicine 07/17/25 documented as of this encounter Additional Source Comments The information contained in this document represents components of the legal health record. It is not the complete legal health record.[facility]
--- OUTSIDE RECORDS SUMMARY | 2025-08-06 15:58 | XMS_ITS | Encounter Summary ---
Author Organization [employer] Address [address] [facility] 7t [place] [address] Care Team Providers Care Brick Chimney Supervisor Name Role Phone Shanice Jones MD Primary Care Provider [phone] Sanaz Machuca Unavailable Reason for Referral * Consultation (Routine) - Closed Specialty Diagnoses / Procedures Referred By Contac t Referred To Contact Rheumatology Diagnoses Spinal arthritis Shanice Jones MD [address] [place] [address] Phone: tel: fax: [facility] [address] Phone: tel: fax: Referral ID Status Reason Start Date Expiration Date V isits Requested Visits Authorized [id number] Closed Specialty Services Required 04/03/2024 04/03/2025 1 1 Encounter Details Date Type Department Care Team (Late st Contact Info) Description 04/03/2024 Orders Only [facility] [address] [place], [place] [phone] Shanice Jones MD [address] [place], [place] [phone] Spinal arthritis (Primary Dx) Social History Tobacco [...] Description 08/10/2025 9:00 AM EDT Office Visit [facility] [address] [place] [address] Shanice Jones MD [address] [place] [address] Scheduled Referrals Name Type Priority Associated Diagnoses [...] EDT) Sodium 140 135 - 145 mmol/L [facility] Potassium 4.2 3.3 - 5.1 mmol/L [facility] Chloride 105 96 - 108 mmol/L [facility] Carbon Dioxide 26 22 - 29 mmol/L [facility] Anion Gap 13 12 - 20 [facility] Urea Nitrogen (BUN) 17(H) 9 - 16 mg/dL [facility] Creatinine, Serum 0.84 0.5 - 1.4 mg/dL [facility] Creatinine Clr Calc Pharmacy 75.7 [facility] Comment:Provided height and weight: 160.02 cm,87.543 kg.eGFR (calculated from the MDRD study equation) and eCrCl(calculated from the Cockcroft-Gault equation) are based ondifferent parameters and may not yield comparable results.If eCrCl result is absurd, please check patient'sheight/weight. Estimated Glomerular Filt Rate >60 [facility] Comment:NOTE: For -Am erican individuals, multiply the result by 1.210.Chronic Kidney Disease: Estimated GFR < 60 mL/min/1.74x5Vhogdo Kidney Disease: Estimated GFR < 15 mL/min/1.73m2 Glucose 99 60 - 115 mg/dL [facility] Calcium 10.6(H) 8.4 - 10.2 mg/dL [facility] Bilirubin, Total 1.3(H) 0.0 - 1.0 mg/dL [facility] Aspartate Amino Transferase 52(H) 5 - 31 U/L [facility] Alanine Aminotransferase 45(H) 0 - 31 U/L [facility] Total Protein 7.7 6.5 - 8.0 g/dL [facility] Albumin Level 4.3 3.5 - 5.0 g/dL [facility] Alkaline Phosphatase 130(H) 39 - 117 U/L [facility] 06/15/2024 4:43 PM EDT 06/15/2024 4:47 PM EDT Generic External Data Provider LAB BLOOD ORDERAB LES Final Result Performing Organization Address [facility] Co de Phone Number [facility] [address] [place] [phone] * Partial Thromboplastin Time, Activated (APTT) (06/15/2024 4:43 PM EDT) Partial Thromboplastin Time 28.6 26.0 - 36.8 SEC [facility] Comment:For information rega rding the monitoring of direct thrombininhibitors, please refer to Pharmacy. 06/15/2024 4:43 PM EDT 06/15/2024 4:47 PM EDT Generic External Data Provider LAB BLOOD ORDERAB LES Final Result Performing Organization Address [facility] Co de Phone Number [facility] [address] [place] [phone] * Prothrombin Time-INR (06/15/2024 4:43 PM EDT) Prothrombin Time 12.2 11.1 - 13.3 SEC [facility] INTERNATIONAL NORM RATIO 1.0 0.9 - 1.1 [facility] Comment:INTERNATIONAL NORMAL IZED RATIO (INR) [...] Provider LAB BLOOD ORDERAB LES Final Result [facility] [address] [place] [address] [phone] * (ABNORMAL) CBC auto differential (06/15/2024 4:43 PM EDT) White Blood Count 8.1 4.8 - 10.8 X10*3/uL [facility] Red Blood Count 4.16(L) 4.20 - 5.50 X10*6/uL [facility] Hemoglobin 11.5(L) 12.0 - 16.0 g/dl [facility] Hematocrit 36.0(L) 37.0 - 47.0 % [facility] Mean Corpuscular Volume 86.5 80.0 - 98.0 fL [facility] Mean Corpuscular Hemoglobin 27.6 27.0 - 33.0 pg [facility] Mean Corpuscular HGB Conc 31.9 31.0 - 35.0 g/dl [facility] Red Cell Distribution Width 17.1(H) 11.0 - 16.0 % [facility] Platelet Count 105(L) 160 - 400 X10*3/uL [facility] Mean Platelet Volume 9.8 9.4 - 12.3 fL [facility] Neutrophils Percent Auto 56.5 45 - 73 % [facility] Imm Gran Pct Auto 0.2 0.0 - 0.4 % [facility] Lymphocytes Percent Auto 32.4 20 - 40 % [facility] Monocytes Percent Auto 6.8 2 - 11 % [facility] Eosinophils Percent Auto 3.2 0 - 4 % [facility] Basophils Percent Auto 0.9 0 - 2 % [facility] NRBC Pct Auto 0.0 0.0 - 0.2 /100WBC [facility] Neutrophils Absolute Auto 4.6 2.0 - 8.3 x10*3/uL [facility] Imm Gran Abs Auto 0.02 0.00 - 0.03 X10*3/uL [facility] Lymphocytes Absolute Auto 2.6 1.2 - 4.9 X10*3/uL [facility] Monocytes Absolute Auto 0.6 0.1 - 1.2 X10*3/uL [facility] Eosinophils Absolute Auto 0.3 0.0 - 0.4 X10*3/uL [facility] Basophils Absolute Auto 0.1 0.0 - 0.2 X10*3/uL [facility] NRBC Abs Auto 0.000 0.0 - 0.012 X10*3/uL [facility] 06/15/2024 4:43 PM EDT 06/15/2024 4:47 PM EDT us Generic External Data Provider LAB BLOOD ORDERAB LES Final Result Performing Organization Address [facility] Co de Phone Number [facility] [address] [place] [address] [phone] documented in this encounter Visit Diagnoses Diagnosis Spinal arthritis- Primary documented in this encounter Care Teams Brick Chimney Supervisor Relationship Specialty Start Date End Date Shanice Jones MD [address] [place] [address] PCP - General Family Medicine 12/22/20 Sanaz Machuca 07/19/25 07/23/25 Cary Alonzo Auditor/QualityTimber Robber 08/26/24 [facility] 12/26/24 documented as of this encounter
--- OUTSIDE RECORDS SUMMARY | 2025-08-06 15:58 | XMS_ITS | Encounter Summary ---
Author Organization [facility] Address [address] [place] [address] Phone Care Team Providers Care Shipbuilding Draftsperson Name Role Phone Shanice Jones MD Primary Care Provider + Shanice Jones MD Primary Care Provider + Encounter Details Date Type Department Care Team (Late st Contact Info) Description 11/10/2024 Procedure Pass [facility], Ct Scan - [facility] [address] [place] [address] Social History Tobacco Use Types Packs/Day Years [...] 11/12/2024 8:31 AM Gabi Ochoa RN * [employer] Suicide Severity Rating Scale (Screener/Recent Self-Report) Question [...] 3:20 PM EST Office Visit [facility] [address] [place] [address] [place] [address] Omari Potts DO [address] [place] [phone] 01/31/2026 1:30 PM EDT Office Visit [facility] [address] [place] [address] Gabe Ramsey MD [address] [place] [address], 2nd [place] [address] documented as of this encounter Visit Diagnoses Not on filedocumented in this encounter Care Teams Shipbuilding Draftsperson Relationship Specialty Start Date End Date Shanice Jones MD PCP - General 10/18/21 07/16/25 Shanice Jones MD [address] [place] [address] PCP - General Family Medicine 07/17/25 documented as of this encounter Additional Source Comments The information contained in this document represents components of the legal health record. It is not the complete legal health record.[facility]
--- OUTSIDE RECORDS SUMMARY | 2025-08-06 15:58 | XMS_ITS | Encounter Summary ---
Author Organization [facility] Address [address] [place] [address] Phone Care Team Providers Care Machine Maintenance Technician Name Role Phone Shanice Jones MD Primary Care Provider + Shanice Jones MD Primary Care Provider + Encounter Details Date Type Department Care Team (Late st Contact Info) Description 04/01/2025 Procedure Pass [facility], [address] [address] Social History Tobacco Use Types Packs/Day Years [...] as food, clothing, or medical care? No 02/23/2025 In the past 12 months have y ou been in a relationship with a person who hurts, threatens, or tries to control you? No 02/23/2025 Are you denied basic needs s uch as food, clothing, or medical care? No 02/23/2025 In the past 12 months have y ou been in a relationship with a person who hurts, threatens, or tries to control you? No 02/23/2025 Comments No Sex and Gender Information Value [...] 3:20 PM EST Office Visit [facility] [address] [place] [address] Omari Potts DO [address] [place] [address] 01/31/2026 1:30 PM EDT Office Visit [facility] [address] [place] [address] Gabe Ramsey MD [address] [place] [address], 2nd [place] [address] documented as of this encounter Visit Diagnoses Not on filedocumented in this encounter Care Teams Machine Maintenance Technician Relationship Specialty Start Date End Date Shanice Jones MD PCP - General 10/18/21 07/16/25 Shanice Jones MD [address] [place] [address] PCP - General Family Medicine 07/17/25 documented as of this encounter Additional Source Comments The information contained in this document represents components of the legal health record. It is not the complete legal health record.[facility]
--- OUTSIDE RECORDS SUMMARY | 2025-08-06 15:58 | XMS_ITS | Encounter Summary ---
Author Organization [employer] Address [address] [facility] 7t [place] [address] Care Team Providers Care Sheep Sticker Name Role Phone Shanice Jones MD Primary Care Provider [phone] Sanaz Machuca Unavailable Encounter Details Date Type Department Care Team (Latest Contact Info) Description 12/05/2018 Abstract [facility] CONVERSIONS Dental, Provider, DDS Social History Tobacco [...] Description 08/10/2025 9:00 AM EDT Office Visit [facility] [address] [place] [address] Shanice Jones MD [address] [place] [address] documented as of this encounter Visit Diagnoses Not on filedocumented in this encounter Care Teams Sheep Sticker Relationship Specialty Start Date End Date Shanice Jones MD [address] [place], [place] [phone] PCP - General Family Medicine 12/22/20 Sanaz Machuca 07/19/25 07/23/25 Cary Alonzo Automatic Teller Machine ServicerStereo Equipment Installer 08/26/24 [facility] 12/26/24 documented as of this encounter
--- OUTSIDE RECORDS SUMMARY | 2025-08-06 15:58 | XMS_ITS | Encounter Summary ---
Author Organization [employer] Address [address] [facility] 7 [place] [address] Care Team Providers Care Event Mgr Name Role Phone Shanice Jones MD Primary Care Provider [phone] Sanaz Machuca Unavailable Encounter Details Date Type Department Care Team (Late Contact Info) Description 07/11/2023 Abstract [facility] [address] [place] [phone] Shanice Jones MD [address] [place] [address] [phone] Social History Tobacco Use Types Packs/Day Years [...] Encounters Date Type Department Care Team (Late Contact Info) Description 08/10/2025 9:00 AM EDT Office Visit [facility] [address] [place] [address] [phone] Shanice Jones MD [address] [place] [phone] documented as of this encounter Procedures Procedure Name Priority Date/Time Associated Diagnosis Comments COLONOSCOPY Routine 09/16/2014 documented in this encounter Results * Colonoscopy (09/16/2014) Colonoscopy Normal Normal Narrative CecileIdalmis - 09/16/2014 Recommended 10 year follow up ( [facility] ) Historical Provider HEALTH MAINTENANCE Final Result documented in this encounter Visit Diagnoses Not on filedocumented in this encounter Care Teams Event Mgr Relationship Specialty Start Date End Date Shanice Jones MD [address] [place] [address] PCP - General Family Medicine 12/22/20 Sanaz Machuca 07/19/25 07/23/25 Cary Alonzo Edi ArchitectSap Business Objects Consultant 08/26/24 [facility] 12/26/24 documented as of this encounter
--- OUTSIDE RECORDS SUMMARY | 2025-08-06 15:58 | XMS_ITS | Clinical Summary ---
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 Active escitalopram oxalate (LEXAPRO) 20 MG tablet Take 20 mg by mouth daily. Active lisinopril (PRINIVIL,ZESTR IL) 10 MG tablet Take 10 mg by mouth daily. Active cholecalciferol (VITAMIN D3) 25 MCG (1,000 unit) tablet Take 1,000 Units by mouth daily. Active SYMBICORT 160-4.5 mcg/actuation inhaler INHALE 2 PUFFS BY MOUTH TWICE DAILY RINSE MOUTH AFTER USING. 021 Active diclofenac sodium (VOLTAREN) 1 % Gel APPLY 2 GRAMS TO AFFECTED AREA(S) OF LOWER BACK TWICE DAILY FOR PAIN Active fluticasone propionate (FLONASE) 50 mcg/actuation nasal spray daily as needed for allergies. 021 Active metFORMIN (GLUCOPHAGE) 500 MG tablet TAKE 2 TABLETS BY MOUTH TWICE DAILY IN THE MORNING AND EVENING WITH MEALS 022 Active pantoprazole (PROTONIX) 40 MG tablet Take 40 mg by mouth 2 (two) times a day. Active doxepin (SINEQUAN) 100 MG capsule Take 100 mg by mouth nightly at bedtime. Active albuterol 2.5 mg /3 mL (0.083 %) nebulizer solution INHALE 1 AMPULE USING A NEBULIZER EVERY 6 HOURS NEEDED SHORTNESS OF BREATH Active levothyroxine (SYNTHROID, LEVOTHROID) 50 MCG tablet TAKE 1 TABLET BY MOUTH EVERY MORNING 30-60 MINUTES BEFORE OTHER MEDS OR FOOD Active isosorbide mononitrate (IMDUR) 30 MG 24 hr tablet Take 30 mg by mouth every morning. Active prazosin (MINIPRESS) 2 MG capsule Take 2 mg by mouth nightly at bedtime. Active ULTICARE PEN NEEDLE 31 gauge x 1/4 Ndle Inject 1 each under the skin 4 (four) times a day. Active ALCOHOL PREP PADS PadMIndications :Type 2 diabetes mellitus with hyperglycemia, with long-term current use of insulin USE DIRECTED 8 TIMES PER DAY 800 each 3 024 Active lancets 28 gauge MiscIndications :Type 2 diabetes mellitus with hyperglycemia, with long-term current use of insulin 1 each by Miscellaneous route 4 (four) times a day before meals and nightly. 400 each 3 024 Active aspirin 81 MG EC tablet Take 81 mg by mouth daily. Active thiamine 50 MG tablet Take 50 mg by mouth every morning. Active sucralfate (CARAFATE) 1 gram tablet Take 1 g by mouth 3 (three) times a day with meals. Active clopidogrel (PLAVIX) 75 mg tablet Take 75 mg by mouth every morning. Active FREESTYLE LITE Strp stripsIndicatio ns:Type 2 diabetes mellitus with diabetic microalbuminuri a, with long-term current use of insulin Inject 1 each under the skin 4 (four) times a day before meals and nightly. 400 strip 3 025 Active fremanezumab-vf rm (AJOVY AUTOINJECTOR) 225 mg/1.5 mL AtInIndications :Intractable chronic migraine without aura and with status migrainosus Inject 225 mg under the skin every 30 (thirty) days. 1.5 mL Active dulaglutide (TRULICITY) 4.5 mg/0.5 mL subcutaneous injectionIndica tions:Type 2 diabetes mellitus with diabetic microalbuminuri a, with long-term current use of insulin Inject 0.5 mL (4.5 mg total) under the skin every 7 days. 6 mL Active insulin aspart U-100 (NOVOLOG) 100 unit/mL (3 mL) injection penIndications: Type 2 diabetes mellitus with diabetic microalbuminuri a, with long-term current use of insulin INJECT 5 UNITS SUBCUTANEOUSLY THREE TIMES DAILY WITH MEALS 15 mL Active rosuvastatin (CRESTOR) 10 MG tabletIndicatio ns:Hyperlipidem ia LDL goal <70 Take 1 tablet (10 mg total) by mouth daily. 90 tablet Active insulin glargine 100 unit/mL (3 mL) InPn injection penIndications: Type 2 diabetes mellitus with diabetic microalbuminuri a, with long-term current use of insulin Inject 15 Units under the skin nightly at bedtime. 15 mL Active oxyCODONE 5 MG immediate release tablet Take 1 tablet (5 mg total) by mouth every 6 (six) hours as needed for pain (specific location in comments). Partial fill ok 10 tablet Active clonazePAM (KLONOPIN) 1 MG tablet Take 1 tablet (1 mg total) by mouth 2 (two) times a day as needed for anxiety. 20 tablet Active pregabalin (LYRICA) 200 MG capsule Take 1 capsule (200 mg total) by mouth daily. 10 capsule Active zolpidem (AMBIEN) 10 mg tablet Take 1 tablet (10 mg total) by mouth nightly at bedtime as needed (sleep). 5 tablet Active ferrous sulfate 325 mg (65 mg [place] iron) tablet Take 1 tablet by mouth every morning. Active docusate sodium (COLACE) 100 MG capsule Take 100 mg by mouth. 025 2025 Active SENNA 8.6 mg tablet TAKE 1 TABLET BY MOUTH TWICE DAILY IN THE MORNING AND AT BEDTIME NEEDED FOR CONSTIPATION Active QUEtiapine (SEROQUEL) 25 MG tablet Take 25 mg by mouth nightly at bedtime as needed. Active glipiZIDE (GLUCOTROL) 10 MG 24 hr tablet Take 10 mg by mouth daily. 2020 Discontinued clonazePAM (KLONOPIN) 1 MG tablet Take 1 mg by mouth 3 (three) times a day as needed. 021 2024 Discontinued(R eorder) furosemide (LASIX) 20 MG tablet Take 20 mg by mouth every morning. 2021 Discontinued(T herapy Completed/No Longer Necessary) aspirin 81 MG EC tablet Take 81 mg by mouth every morning. 2024 Discontinued(N o longer taking) zolpidem (AMBIEN) 10 mg tablet Take 10 mg by mouth nightly at bedtime as needed. 023 2024 Discontinued(R eorder) pregabalin (LYRICA) 200 MG capsule Take 200 mg by mouth daily. 023 2024 Discontinued(R eorder) clonazePAM (KLONOPIN) 1 MG tablet Take 1 tablet (1 mg total) by mouth 2 (two) times a day as needed for anxiety. 20 tablet 025 2024 Discontinued pregabalin (LYRICA) 200 MG capsule Take 1 capsule (200 mg total) by mouth daily. 10 capsule 025 2024 Discontinued zolpidem (AMBIEN) 10 mg tablet Take 1 tablet (10 mg total) by mouth nightly at bedtime as needed (sleep). 5 tablet 025 2024 Discontinued(R eorder) Active Problems Problem Noted Date Diagnosed Date Hypotension 07/18/2025 Assessment & Plan (07/20/2025 2:36 PM EDT): Low BP on 07/18, treated with fluids and holding of antihypertensives is improving. A.m. cortisol low at 2.9 Cosyntropin stim test was performed today. Baseline cortisol was 2.1. She had good response to ACTH Blood pressure has improved though some fluctuations noted with SBP ranging from low 100s to 150s --Findings were reviewed with her actuary. Unclear cause of the baseline low cortisol but rise in levels with ACTH reassuring. Patient denies any recent use of systemic corticosteroids or injection. She does take Flonase. Given her clinical improvement, does not require hydrocortisone. She will follow-up with endocrinology. --Continue carvedilol and prazosin with hold parameters -- Will continue to hold CLADUIA inhibitor Assessment & Plan (07/19/2025 5:52 PM EDT): Low BP on 07/18, treated with fluids and holding of antihypertensives is improving. A.m. cortisol low at 2.9 --Continue carvedilol and prazosin with hold parameters -- Holding CLAUDIA inhibitor -- Check cosyntropin stim test in a.m. Assessment & Plan (07/18/2025 2:50 PM EDT): Low BP this afternoon. She is on multiple antihypertensives -- Giving IV fluid bolus now --Hold lisinopril. Continue carvedilol and prazosin with hold parameters -- Given recent history of falls, will check a.m. cortisol Closed right fibular fracture 07/17/2025 Assessment & Plan (07/20/2025 2:35 PM EDT): Secondary to fall at home, unclear if the fall was secondary to weakness or mechanical in nature, patient does have frequent falls at home X-ray right ankle showed a subtle lucency in the distal fibula, questionable nondisplaced fracture. This was reviewed with orthopedics, conservative management recommended She is having some right sided hip pain, had multiple imaging studies in the ED including x-ray right femur and CT pelvis, both negative for fracture. -- Patient should wear offloading boot when out of bed, can remove at night -- PT/OT following, recommend inpatient rehab. Patient will agree to short stay. Case management updated -- As needed analgesics Assessment & Plan (07/19/2025 5:52 PM EDT): Secondary to fall at home, unclear if the fall was secondary to weakness or mechanical in nature, patient does have frequent falls at home X-ray right ankle showed a subtle lucency in the distal fibula, questionable nondisplaced fracture. This was reviewed with orthopedics, findings most consistent with an ankle sprain --Recommend offloading boot and outpatient follow-up -- PT/OT eval pending --As needed analgesics Assessment & Plan (07/18/2025 2:50 PM EDT): Secondary to fall at home, unclear if the fall was secondary to weakness or mechanical in nature, patient does have frequent falls at home X-ray right ankle showed a subtle lucency in the distal fibula, questionable nondisplaced fracture. This was reviewed with orthopedics, findings most consistent with an ankle sprain --Recommend offloading boot and outpatient follow-up -- Consult to PT/OT -- As needed analgesics Assessment & Plan (07/17/2025 8:18 PM EDT): - Secondary to fall at home, unclear if the fall was secondary to weakness or mechanical in nature, patient does have frequent falls at home and is noncompliant with a walker -Has significant tenderness to palpation in the right distal fibula, boot in place at this time, limited ability to ambulate now. -X-rays of the right knee, pelvis, hip as well as CT scan of the pelvis was unremarkable for further injury. Plan: PT/OT consulted excruciating Orthopedic surgery consulted for further management Pain control with Tylenol, Toradol as needed, avoid narcotics Transient right leg weakness 07/17/2025 Assessment & Plan (07/20/2025 2:35 PM EDT): Patient states that she has not specifically transient weakness and loss of control of her right lower extremity that led to a fall approximately 3 days ago. Has never had symptoms of this before in the past. At this time has sensation appears to have strength however is limited secondary to the pain from a fractured fibula occurring in the same leg after the fall. Patient does have a history of brain aneurysm, status post coiling in 2023, on daily aspirin MRI brain was unremarkable -- Rehab Assessment & Plan (07/19/2025 5:52 PM EDT): Patient states that she has not specifically transient weakness and loss of control of her right lower extremity that led to a fall approximately 3 days ago. Has never had symptoms of this before in the past. At this time has sensation appears to have strength however is limited secondary to the pain from a fractured fibula occurring in the same leg after the fall. Patient does have a history of brain aneurysm, status post coiling in 2023, on daily aspirin MRI brain was unremarkable -- PT/OT eval for home safety Assessment & Plan (07/18/2025 2:50 PM EDT): Patient states that she has not specifically transient weakness and loss of control of her right lower extremity that led to a fall approximately 3 days ago. Has never had symptoms of this before in the past. At this time has sensation appears to have strength however is limited secondary to the pain from a fractured fibula occurring in the same leg after the fall. Patient does have a history of brain aneurysm, status post coiling in 2023, on daily aspirin MRI brain was unremarkable --Consult to physical therapy Assessment & Plan (07/17/2025 8:18 PM EDT): - Patient states that she has not specifically transient weakness and loss of control of her right lower extremity that led to a fall approximately 3 days ago. Has never had symptoms of this before in the past. At this time has sensation appears to have strength however is limited secondary to the pain from a fractured fibula occurring in the same leg after the fall -Patient has a prior history of brain aneurysm status post endovascular coiling in 2023, no real reported history of a stroke in the past, was on aspirin and Plavix currently on aspirin monotherapy -Unclear if the weakness in her right lower extremity was secondary to central cause versus patient's generalized weakness and recurrent falls that occurs to her frequently. Plan: Teleneurology consult in the ED recommended MRI of the brain PT/OT consulted rec speciated Fracture in the distal fibula seen on x-ray, currently in boot Continue pain control Tylenol, trial of Toradol, would avoid opioids given patient's multiple medications. Frequent falls 07/17/2025 Assessment & Plan (07/20/2025 2:35 PM EDT): Per patient and healthcare proxy, patient does have frequent falls per patient she describes she is secondary to deconditioning, and her son confirms this. She is noncompliant with her walker, and frequently falls when she is not using her walker. Previously was on PT however discontinued this approximate 3 weeks ago for unknown specific reasons, suspected that general weakness progressed. --Inpatient rehab Assessment & Plan (07/19/2025 5:52 PM EDT): Per patient and healthcare proxy, patient does have frequent falls per patient she describes she is secondary to deconditioning, and her son confirms this. She is noncompliant with her walker, and frequently falls when she is not using her walker. Previously was on PT however discontinued this approximate 3 weeks ago for unknown specific reasons, suspected that general weakness progressed. -- PT eval/discharge plan Assessment & Plan (07/18/2025 2:50 PM EDT): Per patient and healthcare proxy, patient does have frequent falls per patient she describes she is secondary to deconditioning, and her son confirms this. She is noncompliant with her walker, and frequently falls when she is not using her walker. Previously was on PT however discontinued this approximate 3 weeks ago for unknown specific reasons, suspected that general weakness progressed. Plan: PT/OT Fall precautions Assessment & Plan (07/17/2025 8:18 PM EDT): - Per patient and healthcare proxy, patient does have frequent falls per patient she describes she is secondary to deconditioning, and her son confirms this. She is noncompliant with her walker, and frequently falls when she is not using her walker. Previously was on PT however discontinued this approximate 3 weeks ago for unknown specific reasons, suspected that general weakness progressed. Plan: PT/OT consulted recs appreciated Fall precautions Check TSH Further recommendations pending evaluation. Type 2 diabetes mellitus wit h diabetic microalbuminuria, with long-term current use of insulin 06/08/2025 Assessment & Plan (06/08/2025 12:28 PM EDT): Based on hemoglobin A1c appears to be controlled with A1c of 5.6% decrease Lantus to 15 units because she has occasional lows. She did not want to stop Humalog because she states that sometimes her glucose are elevated. She will continue Trulicity and metformin. She should repeat lab work fasting prior to the follow-up visit in 6 months. Anxiety disorder 12/21/2024 Assessment & Plan (07/20/2025 2:35 PM EDT): Underlying history of PTSD, agoraphobia and depression Follows with outpatient psychiatry, on a number of medications -Patient is currently taking multiple medications for sleep, depression, anxiety including clonazepam, doxepin, Ambien. Concern the patient has significant polypharmacy given multiple medication interactions. Hypersomnolence noted on 07/18, has resolved. She appears back to her clinical baseline. Has been experiencing some cognitive issues more longstanding --Have been holding Ambien, she has been receiving as needed clonazepam twice daily --Continue other home medications as scheduled --Consider outpatient follow-up for more formal neurocognitive testing Assessment & Plan (07/19/2025 5:52 PM EDT): Underlying history of PTSD, agoraphobia and depression Follows with outpatient psychiatry, on a number of medications -Patient is currently taking multiple medications for sleep, depression, anxiety including clonazepam, doxepin, Ambien. Concern the patient has significant polypharmacy given multiple medication interactions. Hypersomnolence noted on 07/18, has resolved. --Have been holding Ambien and patient on a decreased dose of clonazepam. --Continue other home medications as scheduled --Continue close monitoring of neurologic and pulmonary status Assessment & Plan (07/18/2025 2:50 PM EDT): Underlying history of PTSD, agoraphobia and depression Follows with outpatient psychiatry, on a number of medications -Patient is currently taking multiple medications for sleep, depression, anxiety including clonazepam, doxepin, Ambien. Concern the patient has significant polypharmacy given multiple medication interactions. Today, she is somnolent. This may be related to a disrupted sleep cycle in the ED but medications remain a concern -- Agree with holding Ambien and decreasing dose of clonazepam. If she remains lethargic, will hold doxepin and Lyrica as well --Continue close monitoring of neurologic and pulmonary status Assessment & Plan (07/17/2025 8:18 PM EDT): Underlying history of PTSD, agoraphobia and depression Follows with outpatient psychiatry, on a number of medications -Patient is currently taking multiple medications for sleep, depression, anxiety including clonazepam, doxepin, Ambien. Concern the patient has significant polypharmacy given multiple medication interactions. Plan: Hold Ambien at this time, reduce clonazepam to 1 mg twice daily, continue doxepin, Lyrica. Recommend outpatient follow-up with psychiatry and neurology for medication reconciliation and discontinuing of sedating medications, that can be contributing to falls. Type 2 diabetes mellitus wit h hyperglycemia, with long-term current use of insulin 10/18/2021 Assessment & Plan (07/20/2025 2:35 PM EDT): She is on insulin, Trulicity, metformin. POC hovering in the low to mid 100s -- Holding Trulicity and metformin. Continue Lantus and sliding scale insulin Assessment & Plan (07/19/2025 5:52 PM EDT): She is on insulin, Trulicity, metformin. -- Holding Trulicity and metformin. Continue Lantus and sliding scale insulin Assessment & Plan (07/18/2025 2:50 PM EDT): She is on insulin, Trulicity, metformin. -- Holding Trulicity and metformin. Continue Lantus and sliding scale insulin Assessment & Plan (07/17/2025 8:18 PM EDT): He is on insulin, Trulicity, metformin. Plan: Hold Trulicity and metformin at this time, initiate Lantus 10 units at bedtime, followed by high-dose sliding scale, if patient is hyperglycemic can resume Premeal insulin Assessment & Plan (02/17/2025 3:43 PM EDT): Controlled based on hemoglobin A1c of 5.0%. She had 1 low glucose and a lot of glucose in the 70 range. She has been eating more to try to increase her glucose level. At this point I will decrease the Humalog to 5 units 3 times a day. Also will decrease Lantus to 20 units daily. Assessment & Plan (11/05/2024 3:53 PM EST): She appears to have good control hemoglobin A1c 5.7 this may be too low. She really does not report low glucose levels unfortunately they did not bring the meter with them on this visit. I will decrease the Lantus to 50 units. She should continue Humalog 10 units 3 times a day, metformin and Trulicity 4.5 mg weekly. I will give her a follow-up appointment in 3 months. Assessment & Plan (08/03/2024 3:35 PM EDT): Controlled. Hemoglobin A1c 5.9%. She states that she feels more faint. I have noticed some lows based on the meter she has 2% ranging from 54 to 69 mg/dL. So at this point I will decrease the Humalog back down to 10 units 3 times a day she will continue Lantus 60 metformin at the current dose and Trulicity 4.5 mg weekly. Hopefully with the decrease in Humalog maybe she will lose more weight. I am encouraged that she is trying to monitor her diet. I will give her a follow-up appointment in 3 months time because I am making a change in her regimen. On the follow-up visit I will request urine microalbumin and lipid panel. Lastly I just requested hemoglobin A1c to be done prior to the follow-up visit. Assessment & Plan (01/27/2024 3:46 PM EDT): Uncontrolled. Hemoglobin A1c increased from 7.0-7.5. I am increasing Humalog to 15 units 3 times daily with meals. Continue Lantus 60 units and metformin as well as Trulicity. Assessment & Plan (10/28/2023 4:23 PM EST): Unfortunately I do not have hemoglobin A1c I do not have glucose levels so it is hard to say. I would hope that she is doing better than on the last visit. At this point I am not can make any changes continue current regimen. It is possible that the patient may be having lower glucose levels in the 80s range and she does not tolerate this in which case we may have to decrease the Lantus. But is unclear if we should decrease the Lantus or decrease the Trulicity because she is having nausea. She states is tolerable but her son does not feel that this is the case and we will just have to wait and see a little bit longer. She should repeat lab work prior to the follow-up visit. Log was prescribed by my colleague earlier today. Lantus was told that she has enough and I did give her 6 months prescription on the last visit so hopefully she has enough for another 3 months. Assessment & Plan (07/29/2023 5:15 PM EDT): Fair control hemoglobin A1c 7.2% but she [...] extended release 2 tablets twice a day. She needs to do lab work prior to the follow-up visit. Assessment & Plan (04/17/2023 2:59 PM EDT): Uncontrolled. We need at least 70% of the glucose levels to be in target. Her hemoglobin A1c is 7.2% but glucose levels correlate more with 7.7% I will increase Trulicity to 3 mg weekly she will continue Lantus 60 units Humalog 15 units 3 times a day metformin extended release 500 mg 2 tablets twice daily. She will repeat hemoglobin A1c in 3 months. Assessment & Plan (10/24/2022 3:54 PM EST): Improved glycemic control hemoglobin A1c has dropped to 7.2%. I will not make any changes to her regimen. I would have like to increase the dose of Trulicity up to 3 mg weekly but this medication is on backorder. So I think is best just to continue Trulicity 1.5 mg weekly. The patient's son who accompanied her informs me that she is not getting enough Lantus because the [place] pharmacy has written for 30 units of Lantus the prescriptions I have are written clearly for 60 units. She will return for follow-up in 3 months. Assessment & Plan (07/09/2022 4:03 PM EDT): Controlled. However much improved her hemoglobin A1c dropped to 7.7%. She has not been using Trulicity which is unfortunate. She is going to continue her current regimen and I am going to again prescribe Trulicity 1.5 mg. I will have to give her a new sample of the 0.75 mg weekly for the first 2 weeks. The patient received lot number [id number], expiration 12/26/2023. Assessment & Plan (03/22/2022 5:15 PM EDT): Uncontrolled. Hemoglobin A1c in the office today 03/22/2022 was 10.8%. Increase the Lantus to 60 units increase Humalog to 15 units 3 times a day continue metformin extended release 1000 mg twice a day. Today I will prescribe Trulicity 1.5 mg he will start with 0.75 mg weekly for 2 weeks. She was given sample Lot number [id number], expiration 04/13/2023. She does have gastroparesis so she may not be able to tolerate the medication. However the patient is hungry all the time she eats excessive amounts of food and very high carbohydrate content. Maybe this will help decrease her food intake but I do not know if she will tolerate it. I explained to the patient that the medication may cause nausea, vomiting, diarrhea, constipation. He has no history of pancreatitis or medullary thyroid carcinoma. She should return for follow-up visit in 3 months. Assessment & Plan (10/18/2021 12:50 PM EST): Uncontrolled. Hemoglobin A1c is 8.6% and it may be falsely low due to mild anemia. Unfortunately the patient may have gastroparesis I would have like to prescribe GLP-1 agonist but until I have more information regarding her GI status I would not prescribe this medication. I would have like to prescribe an SGLT2 inhibitor but the patient already complains of polyuria and she states that she has vertigo. Has to wake up at night to urinate and on one occasion fell injuring her head. So I rather not have have more enuresis. 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 She does not have systolic ejection murmur. I rather hold off on this as well for the moment. So I think that the best option is just to continue insulin. She is not using NovoLog for lunch even though she does eat lunch and does she does not eat a lot of food she has a high carbohydrate meal she tends to have cream of wheat which is a type of corn meal. I tried to psychotherapist counselor her on nutrition she states that she does not eat any type of meat. I told her that she can eat carbohydrates but in limited portions and that she should increase her vegetable intake so that she does not feel hungry. She can also eat certain foods such as cottage cheese, yogurt but I would say plain yogurt not the one with fruits. Of course she can have fruit but only 4 ounces per meal. It will be best if the patient can do correction scale for NovoLog administration but it sounds to me like she is not monitoring glucose levels before every meal. So I will continue the current regiment where she is using set doses of NovoLog for now I will ask her to do 12 units of NovoLog for breakfast, lunch, and dinner. She is currently using 42 units of Lantus but this should go up to 50 units because she is having elevated fasting glucose. By increasing Lantus to 56 units and having her use NovoLog 12 units 3 times a day she will have a total daily dose of insulin of 86 units in the basal ratio percentage will be 58% and 42% for bolus insulin. This is a good ratio for type II diabetics. I will ask her to return for follow-up in 2 months. She needs to bring in her meter. I would like her to change how she monitors her glucose levels. She will continue checking twice a day but always a fasting glucose and a second alternating between lunch, dinner, and bedtime. I need to see at least 2 weeks before the follow-up visit and again she needs to bring in the meter. Hyperlipidemia LDL goal <100 10/18/2021 Assessment & Plan (06/08/2025 12:08 PM EDT): Controlled. LDL 49 mg/dL continue rosuvastatin 10 mg. No changes required. Assessment & Plan (02/17/2025 3:35 PM EDT): Controlled. LDL 49 mg/dL continue rosuvastatin no changes required. Assessment & Plan (11/05/2024 3:55 PM EST): Controlled. LDL 47 mg/dL continue rosuvastatin 10 mg daily. Assessment & Plan (08/03/2024 3:27 PM EDT): Controlled. LDL 41 mg/dL continue rosuvastatin 40 mg no changes required. Assessment & Plan (01/27/2024 3:48 PM EDT): Controlled. LDL is 1 mg/dL I think that this is too low so I am going to decrease the rosuvastatin from 20 mg to 10 mg. Triglycerides are now elevated and I suppose that this could be due to poor glycemic control. I will request a lipid panel prior to the follow-up visit in 90 days. Assessment & Plan (10/28/2023 4:19 PM EST): Controlled. LDL 41 mg/dl, continue rosuvastatin 20 mg daily. Assessment & Plan (07/29/2023 4:54 PM EDT): Controlled. LDL 41 mg/dL. He should continue rosuvastatin 20 mg daily no changes. Assessment & Plan (04/17/2023 3:02 PM EDT): Controlled. LDL 41 mg/dL continue rosuvastatin 20 mg no changes required. Assessment & Plan (10/24/2022 3:40 PM EST): Controlled. LDL 35 mg/dL on rosuvastatin 20 mg no changes required. Assessment & Plan (07/09/2022 3:59 PM EDT): LDL previously 37 mg/dL on rosuvastatin 20 mg I do not have a repeat lipid panel so this should be done for the follow-up visit. Assessment & Plan (03/22/2022 4:58 PM EDT): LDL previously controlled 37 mg/dL on rosuvastatin 20 mg. Not making any changes I requested repeat lipid panel for the follow-up visit. Assessment & Plan (10/18/2021 12:46 PM EST): Controlled. LDL is 37 mg/dL on rosuvastatin 20 mg I will not make any changes. Ptosis of both eyelids Dermatochalasis of both upper eyelids Encounters Date Type Department Care Team Description 07/28/2025 Orders Only [facility] [address] [place] [id number] Tj Gauthier MD 07/26/2025 11:30 AM EDT Office Visit [facility] Neurology [address] [place] [address] Mellisa Monterroso, GURDEEP Intractable chronic migraine without aura and with status migrainosus (Primary Dx); Chronic pain syndrome 07/22/2025 7:41 AM EDT - 07/22/2025 11:59 PM EDT Hospital Encounter [facility] Laboratory [address] [place] [address] Bobbi Malone MD Discharge Disposition: Home or Self Care 07/22/2025 Orders Only [facility] Medicine Virtual Department [address] [place] [phone] Billie Khanna MD 07/22/2025 Orders Only [facility] Medicine Virtual Department [address] [place] [phone] Billie Khanna MD 07/22/2025 Orders Only [facility] Medicine Virtual Department [address] [place] [phone] Billie Khanna MD 07/22/2025 Transcribe Orders [facility] Specimen Processing [address] [place] [phone] Bobbi Malone MD Illness (Primary Dx) 07/20/2025 Orders Only [facility] [address] [place] [phone] Tj Gauthier MD 07/17/2025 1:33 PM EDT - 07/21/2025 6:32 PM EDT Hospital Encounter [facility] [address] [place] [address] Jose Eduardo Dale MD Grachev, Maksim, DO Green, Tracy L, MD Discharge Disposition: Long-Term Facility 07/17/2025 Procedure [facility] [address] [place] [address] 07/17/2025 Procedure [facility] Scan [facility] [address] [place] [address] 07/17/2025 Procedure [facility] [address] [place] [address] 07/16/2025 7:35 PM EDT - 07/16/2025 7:39 PM EDT Emergency [facility] [address] [place] [address] Discharge Disposition: Left Without Being Seen 06/08/2025 12:10 PM EDT Office Visit [facility] [address] [place] [address] Omari Potts DO Type 2 diabetes mellitus with diabetic microalbuminuria, with long-term current use of insulin (Primary Dx); Hyperlipidemia LDL goal <70 06/02/2025 8:13 AM EDT - 06/02/2025 11:59 PM EDT Hospital Encounter [facility] [address] [place] [address] Omari Potts DO Discharge Disposition: Home or Self Care 2025 Telephone [facility] Neurology [address] [place] [address] Kalina Covington MA from Last 3 Months Immunizations Immunization Administration Dates Next Due INFLUENZA, SPLIT VIRUS, TRIVALENT PF 07/21/2025 Family History Medical History Relation Comments No Known Problems Father Coronary artery disease Mother Diabetes Mother Relation Status Comments Father Mother Social History Tobacco Use Types Packs/Day Years [...] not to disclose 2020 9:32 PM EDT Last Filed Vital Signs Vital Sign Reading Time Taken Comments Blood Pressure 125/81 07/26/2025 11:46 AM EDT Pulse 77 07/26/2025 11:46 AM EDT Temperature 36.4 C (97.5 F) 07/21/2025 4:31 PM EDT Respiratory Rate 96 07/26/2025 11:46 AM EDT Oxygen Saturation 93% 07/21/2025 4:31 PM EDT Inhaled Oxygen Concentration - - Weight 72.6 kg (160 lb 0.9 oz) 07/20/2025 5:24 A M EDT Height 160 cm (5' 2.99 ) 07/20/2025 5:24 AM EDT Body Mass Index 28.36 07/20/2025 5:24 AM EDT Plan of Treatment Upcoming Encounters Date Type Department Care Team (Late st Contact Info) Description 12/09/2025 3:20 PM EST Office Visit [facility] [address] [place] [address] Omari Potts DO [address] [place] [phone] victor 01/31/2026 1:30 PM EDT Office Visit [facility] Neurology [address] [place] [address] Gaeb Ramsey MD [address] [facility], [address]nd [place] [address] [email or web address] Health Maintenance Due Date Last Done Comments DEPRESSION SCREENING 1977 HIV ONE-TIME SCREENING (18-65 YEARS) 1983 PAP SMEAR 1986 COLOGUARD 2010 FOBT 2010 SIGMOIDOSCOPY 2010 VIRTUAL COLONOSCOPY 2010 PNEUMOCOCCAL VACCINES (50+ years) (2 of 2 - PCV) 12/17/2017 12/17/2016 DIABETIC EYE EXAM 03/19/2021 RSV VACCINE (1 - Risk 60-74 years 1-dose series) 2025 COVID-19 VACCINE (2 - 2024- season) 2025 12/01/2021 FIT TEST 07/28/2025 07/28/2024 HEMOGLOBIN A1C 01/15/2026 07/18/2025, 05/12, 03/26/2025, Additional history exists BLOOD PRESSURE 01/23/2026 07/26/2025 MAMMOGRAM 06/10/2026 06/10/2024, 06/12, 07/04/2020, Additional history exists TSH LEVEL 07/18/2026 07/18/2025 CREATININE LEVEL 07/22/2026 07/22/2025, 05/2025, 07/17/2025, Additional history exists POTASSIUM LEVEL 07/22/2026 07/22/2025, 0905/2025, 07/17/2025, Additional history exists Adult Td,Tdap Booster 12/25/2031 12/25/2021, 010 COLONOSCOPY 10/07/2034 10/07/2024 COLORECTAL CANCER SCREENING 10/07/2034 ZOSTER VACCINES Completed 12/25/2021, 10/18/2020 HEPATITIS C SCREENING Completed 12/01/2024, 025 SMOKING STATUS SCREENING (Once After 26 Yrs) Completed 07/16/2025 INFLUENZA VACCINE Completed 07/21/2025, , 10/02/2021, Additional history exists HEPATITIS A VACCINES Aged Out No long er eligible based on patient's age to complete this topic HIB VACCINES Aged Out No longer eligi ble based on patient's age to complete this topic MENINGOCOCCAL VACCINES (ACWY) Aged Out No longer eligible based on patient's age to complete this topic MENINGOCOCCAL VACCINES (B) Aged Out N o longer eligible based on patient's age to complete this topic Medical Devices Implanted Type Area Waterproofing Mixer Device Identifier Shelf Expiration Date Model / Serial / Lot Web Embolization Coil Coil Brain Cordis Precise Stent Stent Procedures Procedure Name Priority Date/Time Associated Diagnosis Comments COMPREHENSIVE METABOLIC PANEL Routine 07/22/2025 6:15 AM EDT Illness CBC Routine 07/22/2025 6:15 AM EDT Illness POCT GLUCOSE Routine 07/21/2025 4:27 PM EDT POCT GLUCOSE Routine 07/21/2025 12:04 PM EDT POCT GLUCOSE Routine 07/21/2025 7:21 AM EDT POCT GLUCOSE Routine 07/20/2025 4:34 PM EDT POCT GLUCOSE Routine 07/20/2025 11:17 AM EDT POCT GLUCOSE Routine 07/20/2025 7:33 AM EDT ACTH Timed 07/20/2025 5:38 AM EDT CORTISOL STIMULATION (BASELINE,30MIN,60MI N) Routine 07/20/2025 5:38 AM EDT POCT GLUCOSE Routine 07/19/2025 7:20 PM EDT POCT GLUCOSE Routine 07/19/2025 4:55 PM EDT POCT GLUCOSE Routine 07/19/2025 11:27 AM EDT POCT GLUCOSE Routine 07/19/2025 7:46 AM EDT CORTISOL AM Routine 07/19/2025 5:34 AM EDT CBC Routine 07/19/2025 5:34 AM EDT POCT GLUCOSE Routine 07/18/2025 7:42 PM EDT POCT GLUCOSE Routine 07/18/2025 4:38 PM EDT POCT GLUCOSE Routine 07/18/2025 11:49 AM EDT MRI BRAIN WITHOUT CONTRAST Required for discharge 07/18/2025 9:07 AM EDT POCT GLUCOSE Routine 07/18/2025 7:26 AM EDT HEMOGLOBIN A1C Routine 07/18/2025 5:55 AM EDT SEDIMENTATION RATE (ESR) Routine 07/18/2025 5:55 AM EDT C-REACTIVE PROTEIN, HIGH SENSITIVITY Routine 07/18/2025 5:55 AM EDT LIPID PANEL Routine 07/18/2025 5:55 AM EDT TSH Routine 07/18/2025 5:55 AM EDT PTT Routine 07/18/2025 5:55 AM EDT PT-INR Routine 07/18/2025 5:55 AM EDT COMPREHENSIVE METABOLIC PANEL Routine 07/18/2025 5:55 AM EDT CBC AND DIFFERENTIAL Routine 07/18/2025 5:55 AM EDT PHOSPHORUS Routine 07/18/2025 5:55 AM EDT MAGNESIUM Routine 07/18/2025 5:55 AM EDT URINALYSIS W/REFLEX URINE CULTURE STAT 07/18/2025 2:03 AM EDT POCT GLUCOSE Routine 07/18/2025 12:06 AM EDT POCT GLUCOSE Routine 07/17/2025 9:14 PM EDT XR CHEST PORTABLE Routine 07/17/2025 5:[address] ANGIO HEAD WITH AND WITHOUT CONTRAST, CT ANGIO NECK WITH CONTRAST Routine 07/17/2025 5:[address] PELVIS (BONY PELVIS) WITHOUT CONTRAST Routine 07/17/2025 5:18 PM EDT TROPONIN STAT 07/17/2025 5:07 PM EDT POCT GLUCOSE Routine 07/17/2025 4:29 PM EDT NT-PROBNP STAT 07/17/2025 4:12 PM EDT TROPONIN STAT 07/17/2025 4:12 PM EDT MAGNESIUM STAT 07/17/2025 4:12 PM EDT LFTS (HEPATIC PANEL) STAT 07/17/2025 4:12 PM EDT BASIC METABOLIC PANEL STAT 07/17/2025 4:12 PM EDT CBC AND DIFFERENTIAL STAT 07/17/2025 4:12 PM EDT ECG 12-LEAD STAT 07/17/2025 3:58 PM EDT XR TIBIA FIBULA 2 VIEWS (RIGHT) Routine 07/16/2025 4:05 PM EDT XR ANKLE 3 OR MORE VIEWS (RIGHT) Routine 07/16/2025 4:05 PM EDT XR FEMUR (RIGHT) 2 VIEWS Routine 07/16/2025 4:05 PM EDT XR KNEE 4 OR MORE VIEWS (RIGHT) Routine 07/16/2025 4:04 PM EDT XR PELVIS 1-2 VIEW Routine 07/16/2025 4: 03 PM EDT HEMOGLOBIN A1C Routine 06/02/2025 8:31 AM EDT Type 2 diabetes mellitus with diabetic microalbuminuria, with long-term current use of insulin HEPATITIS C ANTIBODY, QUALITATIVE Routine 12/01/2024 3:26 PM EST Liver disease Type 2 diabetes mellitus with hyperglycemia, with long-term current use of insulin Need for hepatitis C screening test Hyperlipidemia LDL goal <100 Gastroesophageal reflux disease with esophagitis, unspecified whether hemorrhage ENDOSCOPY, COLON 10/07/2024 3:55 PM EST HC BLOOD OCCULT FECAL HGB DETER IA QUAL FECES 1-3 Routine 07/28/2024 6:11 PM EDT Gastroesophageal reflux disease, unspecified whether esophagitis present Abnormal stools Iron deficiency anemia, unspecified iron deficiency anemia type Abdominal pain, epigastric from Last 3 Months or Most Recently Relevant to Health Maintenance Results * Comprehensive metabolic panel (07/22/2025 6:15 AM EDT) Only the most recent of2 resultswithin the time period is included. SODIUM 141 133 - 146 mmol/L [facility] POTASSIUM 3.8 3.3 - 5.1 mmol/L [facility] CHLORIDE 102 96 - 108 mmol/L [facility] CO2 28 21 - 35 mmol/L [facility] BUN 18 6 - 19 mg/dL [facility] CREATININE 0.60 0.5 - 1.5 mg/dL [facility] GLUCOSE 92 70 - 99 mg/dL [facility] ALBUMIN 4.2 3.9 - 4.8 g/dL [facility] TOTAL PROTEIN 6.6 6.5 - 8.0 g/dL [facility] CALCIUM 9.8 8.4 - 10.3 mg/dL [facility] ALKALINE PHOSPHATASE 110 39 - 117 U/L [facility] TOTAL BILIRUBIN 1.0 0.0 - 1.2 mg/dL [facility] AST 32 0 - 37 U/L [facility] ALT 27 0 - 40 U/L [facility] GLOBULIN 2.4 1 - 4.8 g/dL [facility] EGFR 103 >59 mL/min/1.7 3m2 [facility] Comment:Estimated glomerular filtration rate calculated using the CKD-EPI refit equation. ANION GAP 15 10 - 20 mmol/L [facility] Blood 07/22/2025 6:15 AM EDT 07/22/2025 8:25 AM EDT Bobbi Malone MD LAB BLOOD ORDERABLES Final Res ult Performing Organization Address City/[facility]/ZIP Co de Phone Number [address] [address] * (ABNORMAL) CBC (07/22/2025 6:15 AM EDT) Only the most recent of2 resultswithin the time period is included. WBC 6.07 4.00 - 11.00 K/uL [facility] RBC 4.27 4.00 - 5.20 M/uL [facility] HGB 12.5 12.0 - 16.0 g/dL [facility] HCT 38.9 36.0 - 46.0 % [facility] PLT 89(L) 150 - 450 K/uL [facility] Comment:Consistent with prev ious results. MCV 91.1 80.0 - 100.0 fL [facility] MCH 29.3 27.0 - 31.0 pg [facility] MCHC 32.1 32.0 - 36.0 g/dL [facility] RDW 13.3 11.5 - 14.5 % [facility] MPV 11.5 8.4 - 12.0 fL [facility] NRBC 0.00 0.00 /100 WBCs [facility] ABSOLUTE NRBC 0.00 0.00 K/uL [facility] Blood 07/22/2025 6:15 AM EDT 07/22/2025 8:25 AM EDT Bobbi Malone MD LAB BLOOD ORDERABLES Final Res ult [address] [address] * (ABNORMAL) POCT Glucose (07/21/2025 4:27 PM EDT) Only the most recent of17 resultswithin the time period is included. Glucose, POCT 119(H) 70 - 100 mg/dL [facility] 07/21/2025 4:27 PM EDT 07/21/2025 4:29 PM EDT us Billie Khanna MD POINT OF CARE TEST ORDERABLES F inal Result Performing Organization Address [facility] Co de Phone Number [address] [address] * (ABNORMAL) Cortisol Stimulation (Baseline,30Min,60Min) (07/20/2025 5:38 AM EDT) Cortisol Baseline 2.1(L) 6.02 - 18.4 ug/dL [facility] Cortisol (30 min post ACTH) 17.8 6.02 - 18.4 ug/dL [facility] Cortisol 60 Min 21.2(H) 6.02 - 18.4 ug/dL [facility] Blood 07/20/2025 5:38 AM EDT 07/20/2025 6:45 AM EDT us Billie Khanna MD LAB BLOOD ORDERABLES Final Resu lt Performing Organization Address [facility] de Phone Number [address] [address] * ACTH (07/20/2025 5:38 AM EDT) ACTH 13 pg/mL [facility] Comment: (NOTE) REFERENCE VALUE 7.2-63 (a.m. collection) Blood 07/20/2025 5:38 AM EDT 07/20/2025 5:43 AM EDT us Billie Khanna MD LAB BLOOD ORDERABLES Final Resu lt Performing Organization Address City/[facility]/ZIP Co de Phone Number [facility] [address] [place] [address] * (ABNORMAL) Cortisol AM (07/19/2025 5:34 AM EDT) CORTISOL AM 2.9(L) 6.02 - 18.4 ug/dL [facility] Blood 07/19/2025 5:34 AM EDT 07/19/2025 6:06 AM EDT us Billie Khanna MD LAB BLOOD ORDERABLES Final Resu lt [address] [address] * MRI BRAIN WITHOUT CONTRAST (07/18/2025 9:07 AM EDT) Anatomical Region Laterality Modality Head Magnetic Resonan ce 07/18/2025 11:2 0 AM EDT Impressions 07/18/2025 11:26 AM EDT 1. No acute infarct, intracranial hemorrhage or mass effect. Narrative 07/18/2025 11:26 AM EDT MRI BRAIN WITHOUT CONTRAST Referring clinician's provided indication for this examination in Epic: * Transient ischemic attack (TIA) TECHNIQUE: MRI BRAIN WITHOUT CONTRAST COMPARISON: CT head dated July 17, 2025 FINDINGS: Brain Parenchyma: No evidence of acute infarct, mass or hemorrhage. There are scattered foci of T2 hyperintensity in the white matter, likely a manifestation of chronic small vessel disease. Punctate foci of microhemorrhage in the left lateral abbie and left medial cerebellum. Ventricular System and Extra-Axial Spaces: No evidence of midline shift or hydrocephalus. Extracranial Structures: Expected arterial flow signal is observed at the skull base. Clear paranasal sinuses..Trace right mastoid effusion. Bilateral dense placement. Procedure Note Bautista Lawton MD - 07/18/2025 MRI BRAIN WITHOUT CONTRAST Referring clinician's provided indication for this examination in [facility]: *Transient ischemic attack (TIA) TECHNIQUE: MRI BRAIN WITHOUT CONTRAST COMPARISON: CT head dated July 17, 2025 FINDINGS: Brain Parenchyma: No evidence of acute infarct, mass or hemorrhage. Thereare scattered foci of T2 hyperintensity in the white matter, likely amanifestation of chronic small vessel disease. Punctate foci ofmicrohemorrhage in the left lateral abbie and left medial cerebellum. Ventricular System and Extra-Axial Spaces: No evidence of midline shift orhydrocephalus. Extracranial Structures: Expected arterial flow signal is observed at theskull base. Clear paranasal sinuses..Trace right mastoid effusion.Bilateral dense placement. IMPRESSION: 1. No acute infarct, intracranial hemorrhage or mass effect. Bill Dalton DO IMG MR HEAD/NECK Final Result * C-reactive protein, high sensitivity (07/18/2025 5:55 AM EDT) Pathologist [facility] CRP, HIGH SENSITIVITY 2.7 0.0 - 5.0 mg/L [facility] Comment: Interpretation: hsCRP level (mg/L) Relative Risk <1.0 Low 1.0 - 3.0 Average >3.0 High Neonates (0-3 weeks): 0.1 - 4.1 mg/L Children (2 months - 15 years): 0.1 - 2.8 mg/L Blood 07/18/2025 5:55 AM EDT 07/18/2025 6:18 AM EDT Bill Dalton DO LAB BLOOD ORDERABLES Final Res ult [address] [address] * PTT (07/18/2025 5:55 AM EDT) APTT 32.2 25.1 - 36.5 sec [facility] Comment:APTT response to unf ractionated heparin concentrations between 0.3 and 0.7 IU/mL is typically 54.0-94.0 seconds in uncomplicated cases. The Anti-Xa assay is the preferred method. Blood 07/18/2025 5:55 AM EDT 07/18/2025 6:18 AM EDT Bill Grachev DO LAB BLOOD ORDERABLES Final Res ult Performing Organization Address [facility]/ZIP Co de Phone Number [address] [address] * Sedimentation rate (ESR) (07/18/2025 5:55 AM EDT) ESR 27 0 - 30 mm/h [facility] Blood 07/18/2025 5:55 AM EDT 07/18/2025 6:18 AM EDT Bill Dalton DO LAB BLOOD ORDERABLES Final Res ult Performing Organization Address [facility] de Phone Number [address] [address] * (ABNORMAL) PT-INR (07/18/2025 5:55 AM EDT) Pathologist [facility] PT 13.7(H) 10.2 - 12.9 sec [facility] INR 1.1 0.9 - 1.1 [facility] Comment:Therapeutic range fo r oral Vitamin K antagonists: 2.0-3.5 Blood 07/18/2025 5:55 AM EDT 07/18/2025 6:18 AM EDT Bill Dalton DO LAB BLOOD ORDERABLES Final Res ult Performing Organization Address [facility] de Phone Number [address] [address] * (ABNORMAL) CBC and differential (07/18/2025 5:55 AM EDT) Only the most recent of2 resultswithin the time period is included. WBC 5.88 4.00 - 11.00 K/uL [facility] RBC 4.17 4.00 - 5.20 M/uL [facility] HGB 12.4 12.0 - 16.0 g/dL [facility] HCT 37.7 36.0 - 46.0 % [facility] PLT 92(L) 150 - 450 K/uL [facility] Comment:CONSISTENT WITH PREV IOUS MCV 90.4 80.0 - 100.0 fL [facility] MCH 29.7 27.0 - 31.0 pg [facility] MCHC 32.9 32.0 - 36.0 g/dL [facility] RDW 13.5 11.5 - 14.5 % [facility] MPV 10.8 8.4 - 12.0 fL [facility] NRBC 0.00 0.00 /100 WBCs [facility] ABSOLUTE NRBC 0.00 0.00 K/uL [facility] DIFF METHOD Auto [facility] NEUTS 42.5(L) 48.0 - 76.0 % [facility] LYMPHS 46.6(H) 18.0 - 41.0 % [facility] MONOS 6.6 4.0 - 11.0 % [facility] EOS 3.1 0.0 - 5.0 % [facility] BASOS 0.9 0.0 - 1.5 % [facility] Granulocytes, immature (%) 0.3 0.0 - 0.9 % [facility] ABSOLUTE NEUTS 2.50 1.92 - 7.60 K/uL [facility] ABSOLUTE LYMPHS 2.74 0.72 - 4.10 K/uL [facility] ABSOLUTE MONOS 0.39 0.16 - 1.10 K/uL [facility] ABSOLUTE EOS 0.18 0.00 - 0.50 K/uL [facility] ABSOLUTE BASOS 0.05 0.00 - 0.15 K/uL [facility] Granulocytes, immature 0.02 0.00 - 0.09 K/uL [facility] Blood 07/18/2025 5:55 AM EDT 07/18/2025 6:18 AM EDT us Bill Dalton DO LAB BLOOD ORDERABLES Final Res ult [facility] [address] [place] [address] * TSH (07/18/2025 5:55 AM EDT) TSH 3.07 0.27 - 4.20 uIU/mL [facility] Blood 07/18/2025 5:55 AM EDT 07/18/2025 6:18 AM EDT us Bill Grachev DO LAB BLOOD ORDERABLES Final Res ult Performing Organization Address [facility] Co de Phone Number [address] [address] * Phosphorus (07/18/2025 5:55 AM EDT) PHOSPHORUS 4.0 2.7 - 4.5 mg/dL [facility] Blood 07/18/2025 5:55 AM EDT 07/18/2025 6:18 AM EDT us Bill Grachev DO LAB BLOOD ORDERABLES Final Res ult Performing Organization Address [facility] de Phone Number [address] [address] * Magnesium (07/18/2025 5:55 AM EDT) Only the most recent of2 resultswithin the time period is included. MAGNESIUM 1.6 1.6 - 2.6 mg/dL [facility] Blood 07/18/2025 5:55 AM EDT 07/18/2025 6:18 AM EDT us Bill Grachev DO LAB BLOOD ORDERABLES Final Res ult Performing Organization Address [facility] de Phone Number [address] [address] * Hemoglobin A1c (07/18/2025 5:55 AM EDT) Only the most recent of2 resultswithin the time period is included. HEMOGLOBIN A1C 5.4 4.3 - 5.8 % [facility] Blood 07/18/2025 5:55 AM EDT 07/18/2025 6:18 AM EDT us Bill Ceballosjessica DO LAB BLOOD ORDERABLES Final Res ult Performing Organization Address [facility] Co de Phone Number [address] [address] * (ABNORMAL) Lipid panel (07/18/2025 5:55 AM EDT) HDL 28 mg/dL [facility] Comment: Interpretation <40 mg/dL: Low HDL cholesterol (major risk factor for CHD) Greater than or equal to 60 mg/dL: High HDL cholesterol ( negative risk factor for CHD) HDL - cholesterol is affected by a number of factors, e.g. smoking, excerise, hormones, sex and age. CHOLESTEROL 88 0 - 240 mg/dL [facility] TRIGLYCERIDES 137 30 - 160 mg/dL [facility] LDL 33(L) 50 - 129 mg/dL [facility] Comment: LDL levels in terms of risk for coronary heart disease: <100 mg/dL: Optimal 100-129 mg/dL: Near or above optimal 130-159 mg/dL: Borderline high 160-189 mg/dL: High >190 mg/dL: Very High CARDIAC RISK RATIO 3.1(L) 3.3 - 4.4 C [facility] Blood 07/18/2025 5:55 AM EDT 07/18/2025 6:17 AM EDT us Bill Krystle DO LAB BLOOD ORDERABLES Final Res ult Performing Organization Address [facility]/ZIP Co de Phone Number [address] [address] * (ABNORMAL) Urinalysis w/reflex Urine Culture (07/18/2025 2:03 AM EDT) COLOR STRAW(A) Yellow [facility] CLARITY Clear [facility] GLUCOSE Negative Negative [facility] BILI Negative Negative [facility] KETONES Negative Negative [facility] SPECIFIC GRAVITY <1.005 1.005 - 1.030 [facility] BLOOD Negative Negative [facility] PH 6.0 5.0 - 8.0 [facility] Protein-UA Negative Negative [facility] NITRITE Negative Negative [facility] Leukocyte esterase, ur Negative Negative [facility] Urine (Urine) 07/18/2025 2:0 3 AM EDT 07/18/2025 7:13 AM EDT Jayme Ly PA-C URINE ORDERABLES Final Result [address] [address] * XR Chest Portable (07/17/2025 5:40 PM EDT) Anatomical Region Laterality Modality Chest Computed Radiogr aphy 07/17/2025 5:42 PM EDT Impressions 07/17/2025 5:42 PM EDT No acute cardiopulmonary abnormality. Narrative 07/17/2025 5:42 PM EDT XR CHEST PORTABLE Referring clinician's provided indication for this examination in [facility]: Weakness/Malaise COMPARISON: June 05, 2024 FINDINGS: Devices/Tubes/Lines: None. Lungs: Low bilateral lung volumes. No focal consolidation or pulmonary edema. Pleura: No pleural effusion or pneumothorax. Heart/Mediastinum: The size of the cardiomediastinal silhouette is within normal limits. Bones/Soft Tissues: No significant abnormality. Procedure Note Teri Hicks MD - 07/17/2025 XR CHEST PORTABLE Referring clinician's provided indication for this examination in [facility]:Weakness/Malaise COMPARISON: June 05, 2024 FINDINGS: Devices/Tubes/Lines: None. Lungs: Low bilateral lung volumes. No focal consolidation or pulmonaryedema. Pleura: No pleural effusion or pneumothorax. Heart/Mediastinum: The size of the cardiomediastinal silhouette is withinnormal limits. Bones/Soft Tissues: No significant abnormality. IMPRESSION: No acute cardiopulmonary abnormality. us Jayme Matthewsse NAMRATA IMG XR CHEST Final Result * CT ANGIO HEAD WITH AND WITHOUT CONTRAST, CT ANGIO NECK WITH CONTRAST (07/17/2025 5:18 PM EDT) Anatomical Region Laterality Modality Neck Computed Tomogra phy 07/17/2025 5:33 PM EDT Impressions 07/17/2025 6:16 PM EDT 1. No acute intracranial findings on noncontrast head CT. 2. No large vessel occlusion, high-grade stenosis, aneurysm or dissection in the head or neck. ATTESTATION: I, Teri Hicks as teaching physician, have reviewed the images for this case and if necessary edited the report originally created by Lyubov Tierney. Narrative 07/17/2025 6:[address] ANGIO HEAD WITH AND WITHOUT CONTRAST, CT ANGIO NECK WITH CONTRAST Referring clinician's provided indication for this examination in Epic: * Stroke/TIA, assess intracranial arteries TECHNIQUE: * CTA of the head was performed before and after administration of intravenous contrast using tailored dose modulation techniques. Images were reconstructed in the axial, coronal, and sagittal planes, including angiographic image post-processing. 3D angiographic images with reformatting and post-processing reconstructions were performed and interpreted. * CTA of the neck was performed after administration of intravenous contrast using tailored dose modulation techniques. Images were reconstructed in the axial, coronal, and sagittal planes. 3D angiographic images with reformatting and post- processing reconstructions were performed and interpreted. COMPARISON: CT HEAD WITHOUT CONTRAST ; CT ANGIO HEAD WITH AND WITHOUT CONTRAST, CT ANGIO NECK WITH CO.. FINDINGS: CT HEAD: Brain Parenchyma: No midline shift, mass effect, parenchymal hemorrhage, or evidence of acute territorial infarct. Ventricular System and Extra-Axial Spaces: No extra-axial fluid collections. Basal cisterns are patent. No hydrocephalus. Osseous and Extracranial Structures: No calvarial fracture or significant soft tissue hematoma. No significant paranasal sinus disease. Bilateral lens replacements. CTA HEAD: No aneurysm or arteriovenous malformation. Intracranial internal carotid arteries: No occlusion or high grade stenosis. Anterior cerebral arteries: No occlusion or high grade stenosis. Middle cerebral arteries: No occlusion or high grade stenosis. Vertebrobasilar system: No occlusion or high grade stenosis. Posterior cerebral arteries: No occlusion or high grade stenosis. origin of the right posterior cerebral artery via the posterior communicating artery. Venous: No thrombosis. Patent right transverse sinus stent. CTA NECK: Aortic Arch and Branch Vessel Origins: Normal branching anatomy. No high grade stenosis. Mild atherosclerosis. Right Carotid Artery: No occlusion, high grade stenosis or dissection. Left Carotid Artery: No occlusion, high grade stenosis or dissection. Right Vertebral Artery: No occlusion, high grade stenosis or dissection. It terminates as PICA, a normal anatomic variant. Left Vertebral Artery: No occlusion, high grade stenosis or dissection. Dominant artery. Venous structures: The jugular veins enhance normally. NON-VASCULAR FINDINGS: Lungs and Airways: No acute abnormality. Soft tissues: No adenopathy. Bones: Degenerative changes of the imaged spine. Straightening of the cervical lordosis. Procedure Note Teri Hicks MD - 07/17/2025 CT ANGIO HEAD WITH AND WITHOUT CONTRAST, CT ANGIO NECK WITH CONTRAST Referring clinician's provided indication for this examination in Epic: *Stroke/TIA, assess intracranial arteries TECHNIQUE: * CTA of the head was performed before and after administration ofintravenous contrast using tailored dose modulation techniques. Imageswere reconstructed in the axial, coronal, and sagittal planes, includingangiographic image post- processing. 3D angiographic images withreformatting and post-processing reconstructions were performed andinterpreted. * CTA of the neck was performed after administration of intravenouscontrast using tailored dose modulation techniques. Images werereconstructed in the axial, coronal, and sagittal planes. 3D angiographicimages with reformatting and post-processing reconstructions wereperformed and interpreted. COMPARISON: CT HEAD WITHOUT CONTRAST ; CT ANGIO HEAD WITH ANDWITHOUT CONTRAST, CT ANGIO NECK WITH CO.. FINDINGS: CT HEAD: Brain Parenchyma: No midline shift, mass effect, parenchymal hemorrhage,or evidence of acute territorial infarct. Ventricular System and Extra-Axial Spaces: No extra-axial fluidcollections. Basal cisterns are patent. No hydrocephalus. Osseous and Extracranial Structures: No calvarial fracture or significantsoft tissue hematoma. No significant paranasal sinus disease. Bilaterallens replacements. CTA HEAD: No aneurysm or arteriovenous malformation. Intracranial internal carotid arteries: No occlusion or high gradestenosis. Anterior cerebral arteries: No occlusion or high grade stenosis. Middle cerebral arteries: No occlusion or high grade stenosis. Vertebrobasilar system: No occlusion or high grade stenosis. Posterior cerebral arteries: No occlusion or high grade stenosis. Fetalorigin of the right posterior cerebral artery via the posteriorcommunicating artery. Venous: No thrombosis. Patent right transverse sinus stent. CTA NECK: Aortic Arch and Branch Vessel Origins: Normal branching anatomy. No highgrade stenosis. Mild atherosclerosis. Right Carotid Artery: No occlusion, high grade stenosis or dissection. Left Carotid Artery: No occlusion, high grade stenosis or dissection. Right Vertebral Artery: No occlusion, high grade stenosis or dissection.It terminates as PICA, a normal anatomic variant. Left Vertebral Artery: No occlusion, high grade stenosis or dissection.Dominant artery. Venous structures: The jugular veins enhance normally. NON-VASCULAR FINDINGS: Lungs and Airways: No acute abnormality. Soft tissues: No adenopathy. Bones: Degenerative changes of the imaged spine. Straightening of thecervical lordosis. IMPRESSION: 1. No acute intracranial findings on noncontrast head CT. 2. No large vessel occlusion, high-grade stenosis, aneurysm or dissectionin the head or neck. ATTESTATION: I, Teri Hicks as teaching physician, have reviewed theimages for this case and if necessary edited the report originally createdby Lyubov Tierney. Jayme Ly PA-C IMG CT HEAD/NECK Final Result * CT PELVIS (BONY PELVIS) WITHOUT CONTRAST (07/17/2025 5:18 PM EDT) Anatomical Region Laterality Modality Pelvis Computed Tomogra phy 07/17/2025 5:20 PM EDT Impressions 07/17/2025 5:31 PM EDT 1. No fracture. Narrative 07/17/2025 5:[address] PELVIS (BONY PELVIS) WITHOUT CONTRAST Referring clinician's provided indication for this examination in Epic: * Pelvis pain, stress fracture suspected, neg xray TECHNIQUE: Multidetector-row CT of the bony pelvis, without intravenous contrast using dose-modulation techniques. Images were reconstructed in the axial, coronal, and sagittal planes. COMPARISON: CT ABDOMEN/PELVIS WITH CONTRAST FINDINGS: Bones and Joints: No fracture. Normal alignment. No effusion. Soft Tissues: Normal. Procedure Note Braxton Up MD - 07/17/2025 CT PELVIS (BONY PELVIS) WITHOUT CONTRAST Referring clinician's provided indication for this examination in Epic: *Pelvis pain, stress fracture suspected, neg xray TECHNIQUE: Multidetector-row CT of the bony pelvis, without intravenouscontrast using dose-modulation techniques. Images were reconstructed inthe axial, coronal, and sagittal planes. COMPARISON: CT ABDOMEN/PELVIS WITH CONTRAST FINDINGS: Bones and Joints: No fracture. Normal alignment. No effusion. Soft Tissues: Normal. IMPRESSION: 1. No fracture. Jayme Ly PA-C IMG CT XSPECIALTY ORDERABLES Final Result * Troponin (07/17/2025 5:07 PM EDT) Only the most recent of2 resultswithin the time period is included. Troponin-T, HS Gen5 <6 0 - 9 ng/L [facility] Blood 07/17/2025 5:07 PM EDT 07/17/2025 5:13 PM EDT Jayme Ly PA-C LAB BLOOD ORDERABLES Final Re sult [address] [address] * (ABNORMAL) LFTs (hepatic panel) (07/17/2025 4:12 PM EDT) ALKALINE PHOSPHATASE 103 39 - 117 U/L [facility] TOTAL BILIRUBIN 1.3(H) 0.0 - 1.2 mg/dL [facility] DIRECT BILIRUBIN 0.4(H) 0.0 - 0.2 mg/dL [facility] Bilirubin (Indirect) 0.9 0 - 1.5 mg/dL [facility] AST 21 0 - 37 U/L [facility] ALT 20 0 - 40 U/L [facility] TOTAL PROTEIN 7.3 6.5 - 8.0 g/dL [facility] ALBUMIN 4.4 3.9 - 4.8 g/dL [facility] GLOBULIN 2.9 1 - 4.8 g/dL [facility] A/G Ratio 1.52 1.00 - 4.80 RATIO [facility] Blood 07/17/2025 4:12 PM EDT 07/17/2025 4:22 PM EDT Jayme Ly PA-C LAB BLOOD ORDERABLES Final Re sult [address] [address] * NT-proBNP (07/17/2025 4:12 PM EDT) NT-PROBNP <36 0 - 125 pg/mL [facility] Blood 07/17/2025 4:12 PM EDT 07/17/2025 4:22 PM EDT Jayme Ly PA-C LAB BLOOD ORDERABLES Final Re sult Performing Organization Address City/[facility]/ZIP Co de Phone Number [address] [address] * (ABNORMAL) Basic metabolic panel (07/17/2025 4:12 PM EDT) SODIUM 139 133 - 146 mmol/L [facility] CHLORIDE 103 96 - 108 mmol/L [facility] POTASSIUM 3.9 3.3 - 5.1 mmol/L [facility] CO2 25 21 - 35 mmol/L [facility] BUN 23(H) 6 - 19 mg/dL [facility] CREATININE 0.50 0.5 - 1.5 mg/dL [facility] GLUCOSE 79 70 - 99 mg/dL [facility] CALCIUM 9.6 8.4 - 10.3 mg/dL [facility] EGFR 107 >59 mL/min/1.7 3m2 [facility] Comment:Estimated glomerular filtration rate calculated using the CKD-EPI refit equation. ANION GAP 15 10 - 20 mmol/L [facility] Blood 07/17/2025 4:12 PM EDT 07/17/2025 4:22 PM EDT Jayme Ly PA-C LAB BLOOD ORDERABLES Final Re sult [facility] [address] [place] [address] * ECG 12-LEAD (07/17/2025 3:58 PM EDT) Ventricular Rate EKG/MIN 62 BPM [facility] Atrial Rate 62 BPM [facility] W[place] Interval 188 ms [facility] QRS Duration 92 ms [facility] QT Interval 466 ms [facility] QTC Interval 472 ms [facility] P [place] 29 degrees [facility] R Wave [place] -23 degrees [facility] T Wave [place] 19 degrees [facility] 07/17/2025 3:58 PM EDT 07/19/2025 7:38 AM EDT Narrative [facility] - 07/19/2025 7:39 AM EDT Normal sinus rhythm Normal ECG When compared with ECG of 12-Nov-2024 11:12, Nonspecific T wave abnormality no longer evident in Anterior leads Confirmed by Jason Montilla ([id number]) on 07/19/2025 7:38:57 AM Jayme Ly PA-C ECG ORDERABLES Final Result Performing Organization Address City/[facility]/ZIP Co de Phone Number [email or web address] * XR Tibia Fibula 2 Views (Right) (07/16/2025 4:05 PM EDT) Anatomical Region Laterality Modality Leg Right Computed Radiogr aphy 07/16/2025 5:11 PM EDT Impressions 07/16/2025 5:26 PM EDT Subtle lucency through the distal fibula, seen only on the frontal view, questionable nondisplaced fracture. Soft tissue swelling of the ankle. No other acute osseous abnormality. ATTESTATION: I, Annabella Zamudio as teaching physician, have reviewed the images for this case and if necessary edited the report originally created by Sonali Wilkerson. Narrative 07/16/2025 5:26 PM EDT XR ANKLE 3 OR MORE VIEWS (RIGHT), XR TIBIA FIBULA 2 VIEWS (RIGHT) Referring clinician's provided indication for this examination in Epic: Pain; S/P Fall COMPARISON: None FINDINGS: There is a subtle lucency through the distal fibula, seen only on the frontal view, questionable nondisplaced fracture. This may be artifactual as it is not identified on the other views. Soft tissue swelling of the ankle. Shae's tendon enthesophyte at the insertion on the calcaneus. Talar dome is intact. Ankle mortise is symmetric. Procedure Note Annabella Zamudio MD, PhD - 07/16/2025 XR ANKLE 3 OR MORE VIEWS (RIGHT), XR TIBIA FIBULA 2 VIEWS (RIGHT) Referring clinician's provided indication for this examination in Epic:Pain; S/P Fall COMPARISON: None FINDINGS: There is a subtle lucency through the distal fibula, seen only on thefrontal view, questionable nondisplaced fracture. This may be artifactualas it is not identified on the other views. Soft tissue swelling of theankle. Shae's tendon enthesophyte at the insertion on the calcaneus.Talar dome is intact. Ankle mortise is symmetric. IMPRESSION: Subtle lucency through the distal fibula, seen only on the frontal view,questionable nondisplaced fracture. Soft tissue swelling of the ankle. Noother acute osseous abnormality. ATTESTATION: I, Annabella Zamudio as teaching physician, have reviewedthe images for this case and if necessary edited the report originallycreated by Sonali Wilkerson. us Dex Gardner MD IMG XR LOWER EXTREMITY Anushka l Result * XR ANKLE 3 OR MORE VIEWS (RIGHT) (07/16/2025 4:05 PM EDT) Anatomical Region Laterality Modality Ankle Right Computed Radiogr aphy 07/16/2025 5:11 PM EDT Impressions 07/16/2025 5:26 PM EDT Subtle lucency through the distal fibula, seen only on the frontal view, questionable nondisplaced fracture. Soft tissue swelling of the ankle. No other acute osseous abnormality. ATTESTATION: Annabella Cox as teaching physician, have reviewed the images for this case and if necessary edited the report originally created by Sonali Wilkerson. Narrative 07/16/2025 5:26 PM EDT XR ANKLE 3 OR MORE VIEWS (RIGHT), XR TIBIA FIBULA 2 VIEWS (RIGHT) Referring clinician's provided indication for this examination in Epic: Pain; S/P Fall COMPARISON: None FINDINGS: There is a subtle lucency through the distal fibula, seen only on the frontal view, questionable nondisplaced fracture. This may be artifactual as it is not identified on the other views. Soft tissue swelling of the ankle. Shae's tendon enthesophyte at the insertion on the calcaneus. Talar dome is intact. Ankle mortise is symmetric. Procedure Note Annabella Zamudio MD, PhD - 07/16/2025 XR ANKLE 3 OR MORE VIEWS (RIGHT), XR TIBIA FIBULA 2 VIEWS (RIGHT) Referring clinician's provided indication for this examination in Epic:Pain; S/P Fall COMPARISON: None FINDINGS: There is a subtle lucency through the distal fibula, seen only on thefrontal view, questionable nondisplaced fracture. This may be artifactualas it is not identified on the other views. Soft tissue swelling of theankle. Shae's tendon enthesophyte at the insertion on the calcaneus.Talar dome is intact. Ankle mortise is symmetric. IMPRESSION: Subtle lucency through the distal fibula, seen only on the frontal view,questionable nondisplaced fracture. Soft tissue swelling of the ankle. Noother acute osseous abnormality. ATTESTATION: Annabella Cox as teaching physician, have reviewedthe images for this case and if necessary edited the report originallycreated by Sonali Wilkerson. Dex Gardner MD IMG XR LOWER EXTREMITY Anushka l Result * XR FEMUR (RIGHT) 2 VIEWS (07/16/2025 4:05 PM EDT) Anatomical Region Laterality Modality Thigh Right Computed Radiogr aphy 07/16/2025 5:08 PM EDT Impressions 07/16/2025 5:30 PM EDT No fracture or dislocation. ATTESTATION: I, Annabella Zamudio as teaching physician, have reviewed the images for this case and if necessary edited the report originally created by Sonali Wilkerson. Narrative 07/16/2025 5:30 PM EDT XR FEMUR 2 OR MORE VIEWS (RIGHT) Referring clinician's provided indication for this examination in [facility]: Pain; S/P Fall COMPARISON: None FINDINGS: No fracture. Normal alignment. No lytic or blastic lesion. Mild degenerative changes of the hip and knee without dislocation. Procedure Note Annabella Zamudio MD, PhD - 07/16/2025 XR FEMUR 2 OR MORE VIEWS (RIGHT) Referring clinician's provided indication for this examination in [facility]:Pain; S/P Fall COMPARISON: None FINDINGS: No fracture. Normal alignment. No lytic or blastic lesion. Milddegenerative changes of the hip and knee without dislocation. IMPRESSION: No fracture or dislocation. ATTESTATION: IAnnabella as teaching physician, have reviewedthe images for this case and if necessary edited the report originallycreated by Sonali Wilkerson. Dex Gardner MD IMG XR LOWER EXTREMITY Anushka l Result * XR KNEE 4 OR MORE VIEWS (RIGHT) (07/16/2025 4:04 PM EDT) Anatomical Region Laterality Modality Knee Right Computed Radiogr aphy 07/16/2025 5:09 PM EDT Impressions 07/16/2025 5:24 PM EDT Mild degenerative changes of the right knee with small joint effusion. No acute osseous abnormality. ATTESTATION: Annabella Cox as teaching physician, have reviewed the images for this case and if necessary edited the report originally created by Sonali Wilkerson. Narrative 07/16/2025 5:24 PM EDT XR KNEE 4 OR MORE VIEWS (RIGHT) Referring clinician's provided indication for this examination in Epic: Pain COMPARISON: None FINDINGS: Right Knee: No fracture. Normal alignment. Mild patellofemoral narrowing and patellar enthesophytes. Trace joint effusion.. Procedure Note Annabella Zamudio MD, PhD - 07/16/2025 XR KNEE 4 OR MORE VIEWS (RIGHT) Referring clinician's provided indication for this examination in Epic:Pain COMPARISON: None FINDINGS: Right Knee: No fracture. Normal alignment. Mild patellofemoral narrowingand patellar enthesophytes. Trace joint effusion.. IMPRESSION: Mild degenerative changes of the right knee with small joint effusion. Noacute osseous abnormality. ATTESTATION: Annabella Cox as teaching physician, have reviewedthe images for this case and if necessary edited the report originallycreated by Sonali Wilkerson. us Dex Gardner MD IMG XR LOWER EXTREMITY Anushka l Result * XR PELVIS 1-2 VIEW (07/16/2025 4:03 PM EDT) Anatomical Region Laterality Modality Pelvis Computed Radiogr aphy 07/16/2025 4:52 PM EDT Impressions 07/16/2025 5:23 PM EDT No displaced fracture or dislocation. ATTESTATION: Annabella Cox as teaching physician, have reviewed the images for this case and if necessary edited the report originally created by Sonali Wilkerson. Narrative 07/16/2025 5:23 PM EDT XR PELVIS 1-2 VIEW Referring clinician's provided indication for this examination in Epic: Pain COMPARISON: CT ABDOMEN/PELVIS WITH CONTRAST FINDINGS: No displaced fracture. Intact sacroiliac joints and pubic symphysis. Frontal evaluation of the hips demonstrates normal joint spaces. Procedure Note Annabella Zamudio MD, PhD - 07/16/2025 XR PELVIS 1-2 VIEW Referring clinician's provided indication for this examination in Epic:Pain COMPARISON: CT ABDOMEN/PELVIS WITH CONTRAST FINDINGS: No displaced fracture. Intact sacroiliac joints and pubic symphysis.Frontal evaluation of the hips demonstrates normal joint spaces. IMPRESSION: No displaced fracture or dislocation. ATTESTATION: I, Annabella Zamudio as teaching physician, have reviewedthe images for this case and if necessary edited the report originallycreated by Sonali Wilkerson. us Dex Gardner MD IMG XR PELVIS Final Resul t * Hepatitis C antibody, qualitative (12/01/2024 3:26 PM EST) HCV NON-REACTIV E NON-REACTI VE [facility] Blood 12/01/2024 3:26 PM EST 12/01/2024 3:35 PM EST us Jaimee Coats [facility] LAB BLOOD ORDERABLES Final Result [address] [address] * ENDOSCOPY, COLON (10/07/2024 3:55 PM EST) Narrative Transcriptions Riley Bedolla MD - 10/07/2024 3:55 PM EST [facility] Patient Name: Lindsey Lofton Attending MD:: RILEY BEDOLLA MD, Procedure Date: 10/07/2024 3:55 PM Date of : 1965 Age: 59 Admit Type: Outpatient Gender: Female Room: [place] [address] Referring MD: Shanice Jones Exam Type: Colonoscopy Indications: Screening for colorectal malignant neoplasm, Iron deficiency anemia Medications: Monitored Anesthesia Care Procedure: Informed consent was obtained from the patientafter discussion of the indications, limitations, alternatives, benefits, and risks of the procedure. Risks specifically discussed include but are not limited to medication reactions, missed lesions, bleeding, perforation, or the need for emergent surgery. Throughout the procedure, the patient's blood pressure, pulse, end-tidal CO2, and oxygensaturations were monitored continuously. The Olympus adult variable colonoscope [id number] #6 was introduced through the anus and advanced to the terminal ileum, with identification of theappendiceal orifice and IC valve. The colonoscopy was performed without difficulty. The patient tolerated the procedure well. The quality of the bowelpreparation was good. Anatomical landmarks were photographed. Complications: No immediate complications. Estimated blood loss:None. Findings: The terminal ileum appeared normal. Examination of the right colon was repeated in retroflexion and again in NBI. Retroflexion wasalso performed in the rectum. A 5 mm polyp was found in the sigmoid colon. Thepolyp was sessile. The polyp was removed with a coldsnare. Resection and retrieval were complete. There was a focal area of stellate pallor in anal canal consistent with fibrosis, most likely from a prior hemorrhoidectomy. The exam was otherwise without abnormality. Impression: - The examined portion of the ileum was normal. - One 5 mm polyp in the sigmoid colon, removed witha cold snare. Resected and retrieved. - The examination was otherwise normal. Recommendation: - Patient has a contact number available for emergencies. The signs and symptoms of potential delayed complications were discussed with thepatient. Return to normal activities tomorrow. Written discharge instructions were provided to thepatient. - Repeat colonoscopy after studies are complete for screening purposes. - Await pathology results. Riley Bedolla RILEY BEDOLLA MD 10/07/2024 4:44:33 PM This report has been signed electronically. Number of Addenda: 0 Note Initiated On: 10/07/2024 3:55 PM Procedure Code(s): --- Professional --- 67763, Colonoscopy, flexible; with removal of tumor(s), polyp(s), or other lesion(s) by snare technique --- Technical --- 30841, Colonoscopy, flexible; with removal of tumor(s), polyp(s), or other lesion(s) by snare technique CPT copyright 2021 [employer]. All rights reserved. The codes documented in this report are preliminary and upon student support counselor reviewmay be revised to meet current compliance requirements. Procedure Date: 10/07/2024 3:55:[address] [place] [address] [id number] us Shanice Jones MD GI PROCEDURE ORDERABLES Final Result * Fecal immunochemical test x1 (FIT) (07/28/2024 6:11 PM EDT) Immuno Fecal Occult Negative Negative [facility] Stool (Stool) 07/28/2024 6:1 1 PM EDT 07/28/2024 6:13 PM EDT Jaimee Coats CNP BODY FLUIDS AND STOOLS ORD ERABLES Final Result [facility] [address] [place] [address] from Last 3 Months or Most Recently Relevant to Health Maintenance Insurance [facility] C[address] [place] [address] [address] [address] [address] [place] [address] C3 ACO [facility] C3 ACO Advance Directives For more information, please contact: [phone] (9AM - 5PM Samantha/[facility], Saturday-Saturday) Documents on File Type Date Recorded 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 07/20/2021 12:54 PM * Full Code (Latest Code Status on File) Date Activated Date Inactivated Comments 07/18/2025 12:02 AM Question Answer Comments Code Status Confirmed With: Patient Code Status Communicated To: Inpatient Attending Healthcare Agents on File Name Relationship Healthcare Agent [facility] Communication Nick Layne Son .Primary Health Care Agent (Proxy form on file) Care Teams Reaming Machine Tender Relationship Specialty Start Date End Date Shanice Jones MD [address] [place] [address] PCP - General Family Medicine 07/17/25 Additional Source Comments The information contained in this document represents components of the legal health record. It is not the complete legal health record.[facility]
--- OUTSIDE RECORDS SUMMARY | 2025-08-06 15:58 | XMS_ITS | Encounter Summary ---
Author Organization Located Within [facility] Address [address] [place] [address] Phone Care Team Providers Care Caustics Loader Name Role Phone Shanice Jones MD Primary Care Provider + Shanice Jones MD Primary Care Provider + Reason for Referral * MRI/CAT Scan - Closed Specialty Diagnoses / Procedures Referred By Contdea t Referred To Contact Radiology Diagnoses Elevated LFTs Procedures MRI Cholangiopancreatography (MRCP) Jaimee Coats CNP Phone: tel: fax: mailto:[email or web address] Referral ID Status Reason Start Date Expiration Date Visits Re quested Visits Authorized [id number] Closed 04/08/2025 04/08/2026 1 1 Encounter Details Date Type Department Care Team (Latest Contact Info) Description 04/01/2025 Transcribe Orders Virtual Department [address] [place] [address] Jaimee Coats CNP [address] [place], [place] [id number] [email or web address] Elevated LFTs (Primary Dx) Social History Tobacco Use Types [...] 3:20 PM EST Office Visit [facility] [address] Omari Potts DO [address] [place] [address] 01/31/2026 1:30 PM EDT Office Visit [facility] Neurology [address] [place] [address] Gabe Ramsey MD [address] [place] [address], 2nd [place] [address] documented as of this encounter Results * MRI CHOLANGIOPANCREATOGRAPHY (MRCP) WITH AND WITHOUT CONTRAST (04/25/2025 12:27 PM EDT) [facility] IMG BLASTING GANG MINER COMMENT Follow-up abdominal MRI in 6 months, or as clinically appropriate. [facility] Anatomical Region Laterality Modality Pancreas, Biliary Magnetic Reson ance 05/03/2025 8:49 AM EDT Impressions 05/03/2025 9:03 AM EDT 1. Cirrhotic hepatic morphology with hepatic fibrosis. 2. A 6 mm T2 hyperintense lesion in the right hepatic lobe is likely a hemangioma, but evaluation is somewhat limited due to motion. Follow-up study in 6 months or as clinically appropriate is recommended. 3. Fatty liver. 4. Small hiatal hernia. RECOMMENDATION: Follow-up abdominal MRI in 6 months, or as clinically appropriate. A clinically significant result was initiated on 05/03/2025 9:02 AM, Message ID [id number]. Narrative 05/03/2025 9:03 AM EDT MRI CHOLANGIOPANCREATOGRAPHY (MRCP) WITH AND WITHOUT CONTRAST Referring clinician's provided indication for this examination in Epic: Outside Radiology Order; elevated lft's TECHNIQUE: Multiplanar MR imaging of the abdomen was performed using T1, T2, fat saturated, and diffusion weighted techniques. 2D and 3D MRCP sequences were performed. Dynamic multiphase imaging was also performed after administration of an intravenous gadolinium contrast agent. COMPARISON: Prior studies, including CT abdomen/pelvis dated 11/02/2024 FINDINGS: Lower Chest: No effusions. Liver: Signal loss on opposed phase imaging consistent with fatty liver. Nodular hepatic contour with relative hypertrophy of the left hepatic lobe and caudate lobe suspicious for cirrhotic morphology. No suspicious arterially enhancing lesions. A smoothly marginated T2 hyperintense lesion in the right hepatic lobe measuring 6 mm (4:19) enhances after contrast administration, remaining isointense to surrounding vessels, likely hemangioma but imaging is degraded by motion. Reticular enhancement throughout the liver on delayed phase imaging suggests hepatic fibrosis. Biliary: No biliary ductal dilatation. Spleen: No splenomegaly or focal lesion. Pancreas: No pancreatic ductal dilatation or peripancreatic inflammation. Adrenal Glands: No nodules. Kidneys/Ureters: No hydronephrosis or enhancing renal lesion. Bowel: No dilatation or wall thickening. Small hiatal hernia. Peritoneum/Retroperitoneum: No suspicious free fluid in the abdomen. Lymph Nodes: No enlarged abdominal lymph nodes. Vessels: No abdominal aortic aneurysm. Patent portal vein. Bones/Soft Tissues: No focal marrow replacing lesions. Procedure Note Omari Roberts MD - 05/03/2025 MRI CHOLANGIOPANCREATOGRAPHY (MRCP) WITH AND WITHOUT CONTRAST Referring clinician's provided indication for this examination in Epic:Outside Radiology Order; elevated lft's TECHNIQUE: Multiplanar MR imaging of the abdomen was performed using T1,T2, fat saturated, and diffusion weighted techniques. 2D and 3D MRCPsequences were performed. Dynamic multiphase imaging was also performedafter administration of an intravenous gadolinium contrast agent. COMPARISON: Prior studies, including CT abdomen/pelvis dated 11/02/2024 FINDINGS: Lower Chest: No effusions. Liver: Signal loss on opposed phase imaging consistent with fatty liver. Nodular hepatic contour with relative hypertrophy of the left hepatic lobeand caudate lobe suspicious for cirrhotic morphology. No suspicious arterially enhancing lesions. A smoothly marginated T2 hyperintense lesion in the right hepatic lobemeasuring 6 mm (4:19) enhances after contrast administration, remainingisointense to surrounding vessels, likely hemangioma but imaging isdegraded by motion. Reticular enhancement throughout the liver on delayed phase imagingsuggests hepatic fibrosis. Biliary: No biliary ductal dilatation. Spleen: No splenomegaly or focal lesion. Pancreas: No pancreatic ductal dilatation or peripancreaticinflammation. Adrenal Glands: No nodules. Kidneys/Ureters: No hydronephrosis or enhancing renal lesion. Bowel: No dilatation or wall thickening. Small hiatal hernia. Peritoneum/Retroperitoneum: No suspicious free fluid in the abdomen. Lymph Nodes: No enlarged abdominal lymph nodes. Vessels: No abdominal aortic aneurysm. Patent portal vein. Bones/Soft Tissues: No focal marrow replacing lesions. IMPRESSION: 1. Cirrhotic hepatic morphology with hepatic fibrosis. 2. A 6 mm T2 hyperintense lesion in the right hepatic lobe is likely ahemangioma, but evaluation is somewhat limited due to motion. Follow-upstudy in 6 months or as clinically appropriate is recommended. 3. Fatty liver. 4. Small hiatal hernia. RECOMMENDATION: Follow-up abdominal MRI in 6 months, or as clinicallyappropriate. A clinically significant result was initiated on 05/03/2025 9:02 AM,Message ID [id number]. Jaimee Coats PACK MULE WORKER IMG MR ABDOMEN Final Resu lt documented in this encounter Visit Diagnoses Diagnosis Elevated LFTs- Primary Other abnormal blood chemistry Elevated LFTs Other abnormal blood chemistry documented in this encounter Care Teams Caustics Loader Relationship Specialty Start Date End Date Shanice Jones MD PCP - General 10/18/21 07/16/25 Shanice Jones MD [address] [place] [address] PCP - General Family Medicine 07/17/25 documented as of this encounter Additional Source Comments The information contained in this document represents components of the legal health record. It is not the complete legal health record.[facility]
--- OUTSIDE RECORDS SUMMARY | 2025-08-06 15:58 | XMS_ITS | Encounter Summary ---
Author Organization [employer] Address [address] [place] [address] Care Team Providers Care Director Franchise Sales Name Role Phone Shanice Jones MD Primary Care Provider [phone] Sanaz Machuca Unavailable Reason for Visit * Reason Onset Date Comments Med Refill 02/14/2024 Encounter Details Date Type Department Care Team (Late st Contact Info) Description 02/14/2024 Telephone [facility] MEDICINE [address] [place], [place] [phone] Shanice Jones MD [address] [place], [place] [phone] Med Refill Social History Tobacco Use Types [...] EDT Patient has not received Clonazepam from [facility] provider. She has been receiving from Oliverio Perales [address] [place] [address], TC via P/I#[id number], reviewed with patient the above information and advised to call Dr Perales. Patient stated she understood. * Telephone Encounter - Nava Carmichael - 02/14/2024 11:42 AM EDT TC from pt requesting medication refill. Medications needing refill : clonazePAM (KlonoPIN) 1 MG tablet To be sent to: [facility] Pharmacy documented in this encounter Plan of Treatment Upcoming Encounters Date Type Department Care Team (Late st Contact Info) Description 08/10/2025 9:00 AM EDT Office Visit [facility] MEDICINE [address] [place] [address] Shanice Jones MD [address] [place] [address] documented as of this encounter Visit Diagnoses Not on filedocumented in this encounter Care Teams Director Franchise Sales Relationship Specialty Start Date End Date Shanice Jones MD [address] [place] [address] PCP - General Family Medicine 12/22/20 Sanaz Machuca 07/19/25 07/23/25 Cary Alonzo Drainage Design CoordinatorLap Winding Machine Operator 08/26/24 Himanshu Caring 12/26/24 documented as of this encounter
--- OUTSIDE RECORDS SUMMARY | 2025-08-06 15:58 | XMS_ITS | Encounter Summary ---
Author Organization [facility] Address [address] [place] [address] Phone Care Team Providers Care Quilt Stuffer Name Role Phone Shanice Jones MD Primary Care Provider + Shanice Jones MD Primary Care Provider + Encounter Details Date Type Department Care Team (Late st Contact Info) Description 02/23/2025 Procedure Pass [facility], Ct Scan - [facility] [address] [place] [address] Social History Tobacco Use Types Packs/Day Years [...] Date of Assessment Author No Risk Indicated 02/23/2025 5:12 PM EDT Kamilah Charles RN * [place] Suicide Severity Rating Scale (Screener/Recent Self-Report) Question Answer Date of Assessment Author 1. Wish to be (Past 1 Month) No 025 5:12 PM EDT Kamilah Charles, HINA 2. Non-Specific Active Suici jared Thoughts (Past 1 Month) No 02/23/2025 5:12 PM EDT Kamilah Charles RN 6. Suicidal Behavior (Lifetime) No 5:12 PM EDT Kamilah Charles RN documented as of this encounter Plan of Treatment Upcoming Encounters Date Type Department Care Team (Late st Contact Info) Description 12/09/2025 3:20 PM EST Office Visit [facility] [address] [place] [address] Omari Potts DO [address] [place] [address] 01/31/2026 1:30 PM EDT Office Visit [facility] Neurology [address] [place] [address] Gabe Ramsey MD [address] [place] [address], [address] [place] [address] documented as of this encounter Visit Diagnoses Not on filedocumented in this encounter Care Teams Quilt Stuffer Relationship Specialty Start Date End Date Shanice Jones MD PCP - General 10/18/21 07/16/25 Shanice Jones MD [address] [place] [address] PCP - General Family Medicine 07/17/25 documented as of this encounter Additional Source Comments The information contained in this document represents components of the legal health record. It is not the complete legal health record.[facility]
--- OUTSIDE RECORDS SUMMARY | 2025-08-06 15:58 | XMS_ITS | Encounter Summary ---
Author Organization [facility] Address [address] [place] [address] Phone Care Team Providers Care Personal Financial Representative Name Role Phone Shanice Jones MD Primary Care Provider + Shanice Jones MD Primary Care Provider + Encounter Details Date Type Department Care Team (Late st Contact Info) Description 02/23/2025 Procedure Pass [facility], Ct Scan - [facility] [address] [place] [address] Social History Tobacco Use Types Packs/Day Years [...] 5:12 PM EDT Kamilah Charles RN * [place] Suicide Severity Rating Scale (Screener/Recent Self-Report) Question [...] PM EST Office Visit [facility] [address] [place] [address] Omari Potts DO [address] [place] [address] 01/31/2026 1:30 PM EDT Office Visit [facility] Neurology [address] [place] [address] Gabe Ramsey MD [address] [place] [address], 2nd [place] [address] documented as of this encounter Visit Diagnoses Not on filedocumented in this encounter Care Teams Personal Financial Representative Relationship Specialty Start Date End Date Shanice Jones MD PCP - General 10/18/21 07/16/25 Shanice Jones MD [address] [place] [address] PCP - General Family Medicine 07/17/25 documented as of this encounter Additional Source Comments The information contained in this document represents components of the legal health record. It is not the complete legal health record.[facility]
--- OUTSIDE RECORDS SUMMARY | 2025-08-06 15:58 | XMS_ITS | Encounter Summary ---
Author Organization [facility] Address [address] [place] [address] Phone Care Team Providers Care Lens Fabricating Machine Tender Name Role Phone Shanice Jones MD Primary Care Provider + Shanice Jones MD Primary Care Provider + Encounter Details Date Type Department Care Team (Latest Contact Info) Description 07/28/2024 Transcribe Orders Virtual Department [address] [place] [address] Jaimee Coats, EUFEM[place] [address] [place] [address] [email or web address] Elevated LFTs (Primary Dx) Social History Tobacco [...] PM EST Office Visit [facility] [address] [place] [address] Omari Potts DO [address] [place] [address] 01/31/2026 1:30 PM EDT Office Visit [facility] Neurology [address] [place] [address] [place] [address] Gabe Ramsey MD [address] [place] [address], 2nd [place] [address] documented as of this encounter Results * US ABDOMEN LIMITED RIGHT UPPER QUADRANT (08/04/2024 9:11 AM EDT) Anatomical Region Laterality Modality Abdomen Ultrasound 08/04/2024 10:5 3 AM EDT Impressions 08/04/2024 10:55 AM EDT 1. Normal gallbladder. 2. No biliary ductal dilatation. 3. The liver is diffusely echogenic. This is a nonspecific finding indicating diffuse hepatocellular disease and limiting the sensitivity of this exam. In the correct clinical scenario, this commonly represents fatty liver. Within the limitations of this study, there is no sonographic evidence for focal hepatic lesion. Narrative 08/04/2024 10:55 AM EDT US ABDOMEN LIMITED RIGHT UPPER QUADRANT Referring clinician's provided indication for this examination in Epic: Outside Radiology Order; elevated lft's TECHNIQUE: US Abdominal limited right upper quadrant. COMPARISON: CT abdomen/pelvis dated 08/18/2022 FINDINGS: Liver: Echogenic liver. Main Portal Vein: Patent with normal direction of flow. Portal vein diameter: 1.2 cm Gallbladder: No gallstones or gallbladder wall thickening. Jorge's Sign: Negative. Biliary: No intrahepatic or extrahepatic biliary ductal dilatation. The common bile duct measures 3 mm. Right Kidney: No stones or hydronephrosis. The right kidney measures 13.7 cm. Free Fluid: None. Procedure Note Omari Roberts MD - 08/04/2024 US ABDOMEN LIMITED RIGHT UPPER QUADRANT Referring clinician's provided indication for this examination in [facility]:Outside Radiology Order; elevated lft's TECHNIQUE: US Abdominal limited right upper quadrant. COMPARISON: CT abdomen/pelvis dated 08/18/2022 FINDINGS: Liver: Echogenic liver. Main Portal Vein: Patent with normal direction of flow. Portal veindiameter: 1.2 cm Gallbladder: No gallstones or gallbladder wall thickening. Jorge's Sign: Negative. Biliary: No intrahepatic or extrahepatic biliary ductal dilatation. The common bile duct measures 3 mm. Right Kidney: No stones or hydronephrosis. The right kidney measures 13.7cm. Free Fluid: None. IMPRESSION: 1. Normal gallbladder. 2. No biliary ductal dilatation. 3. The liver is diffusely echogenic. This is a nonspecific findingindicating diffuse hepatocellular disease and limiting the sensitivity ofthis exam. In the correct clinical scenario, this commonly representsfatty liver. Within the limitations of this study, there is nosonographic evidence for focal hepatic lesion. Jaimee Mccray Jorge L [facility] IMG US ABDOMEN Final Resu lt documented in this encounter Visit Diagnoses Diagnosis Elevated LFTs- Primary Other abnormal blood chemistry Elevated LFTs Other abnormal blood chemistry documented in this encounter Care Teams Lens Fabricating Machine Tender Relationship Specialty Start Date End Date Shanice Jones MD PCP - General 10/18/21 07/16/25 Shanice Jones MD [address] [place] [address] PCP - General Family Medicine 07/17/25 documented as of this encounter Additional Source Comments The information contained in this document represents components of the legal health record. It is not the complete legal health record.[facility]
--- OUTSIDE RECORDS SUMMARY | 2025-08-06 15:58 | XMS_ITS | Encounter Summary ---
Author Organization [facility] Address [address] [place] [address] Phone Care Team Providers Care Anesthesia Associate Name Role Phone Shanice Jones MD Primary Care Provider + Encounter Details Date Type Department Care Team ([facility] st Contact Info) Description 07/22/2025 Orders Only [facility] Virtual Department [address] [place] [address] Billie Khanna MD [address] [place] [address] [email or web address] Social History Tobacco Use Types Packs/Day Years [...] PM EST Office Visit [facility] [address] [place] [address] Omari Potts DO [address] [place] [address] 01/31/2026 1:30 PM EDT Office Visit [facility] [address]rology [address] [place] [address] Gabe Ramsey MD [address] [facility], 2nd [place] [address] [email or web address] documented as of this encounter Visit Diagnoses Not on filedocumented in this encounter Care Teams Anesthesia Associate Relationship Specialty Start Date End Date Shanice Jones MD [address] [place] [address] PCP - General Family Medicine 07/17/25 documented as of this encounter Additional Source Comments The information contained in this document represents components of the legal health record. It is not the complete legal health record.[facility]
--- OUTSIDE RECORDS SUMMARY | 2025-08-06 15:59 | XMS_ITS | Encounter Summary ---
Author Organization [employer] Address [address] [facility] [address]t [place] [address] Care Team Providers Care Renderer Name Role Phone Shanice Jones MD Primary Care Provider [phone] Sanaz Machuca Unavailable Encounter Details Date Type Department Care Team (Late st Contact Info) Description 10/22/2024 Orders Only [facility] [address] [place] [address] Provider, MD Maurisio Social History Tobacco Use [...] Description 08/10/2025 9:00 AM EDT Office Visit [facility] MEDICINE [address] [place] [address] Shanice Jones MD [address] [place] [address] documented as of this encounter Procedures Procedure Name Priority Date/Time Associated Diagnosis Comments SURGICAL PATHOLOGY Routine 10/07/2024 8:25 AM EST documented in this encounter Results * Surgical Pathology (10/07/2024 8:25 AM EST) Historical Provider LAB PATHOLOGY ORDERABLES Final Result documented in this encounter Visit Diagnoses Not on filedocumented in this encounter Care Teams Renderer Relationship Specialty Start Date End Date Shanice Jones MD [address] [place] [address] PCP - General Family Medicine 12/22/20 Sanaz Machuca 07/19/25 07/23/25 Cary Alonzo Regional Education CoordinatorGenerator Operator 08/26/24 Himanshu Hayes 12/26/24 documented as of this encounter
--- OUTSIDE RECORDS SUMMARY | 2025-08-06 15:59 | XMS_ITS | Encounter Summary ---
Author Organization [employer] Address [address] [place] [address] Care Team Providers Care Department Store General Manager Name Role Phone Shanice Jones MD Primary Care Provider [phone] Sanaz Machuca Unavailable Encounter Details Date Type Department Care Team (Late st Contact Info) Description 05/05/2025 Orders Only [facility] [address] [place], [place] [phone] Wanda Ivory MD [address] [place], [place] [phone] Neck pain (Primary Dx) Social History Tobacco Use Types [...] Description 08/10/2025 9:00 AM EDT Office Visit [facility] [address] [place], [place] [phone] Shanice Jones MD [address] [place], [place] [phone] documented as of this encounter Procedures Procedure Name Priority Date/Time Associated Diagnosis Comments XR CERVICAL SPINE 4V Routine 06/30/2025 4:53 PM EDT Neck pain documented in this encounter Results * XR CERVICAL SPINE 4V (06/30/2025 4:53 PM EDT) Anatomical Region Laterality Modality Abdomen Radiographic Haylie ging 06/30/2025 4:53 PM EDT Narrative 06/30/2025 5:29 PM EDT [facility] [address] [place] [address] XRay Report Signed Patient: Lindsey Wilson MR#: [id number] : 1965 Acct:[id number] Age/Sex: 60 / F ADM Date: 06/30/25 Loc: HO.CT Attending Dr: Nick Lofton MD Ordering Physician: Wanda Ivory MD Date of Service: 06/30/25 Procedure(s): XR cervical spine 4V Accession Number(s): [id number] cc: Prachi Jones Nao MD EXAMINATION: XR CERVICAL SPINE CLINICAL INFORMATION: PAIN COMPARISON: None available. TECHNIQUE: 5 views of the cervical spine were obtained. FINDINGS: There is no prevertebral edema. There is mild disc space narrowing between C3-4 and C6-7 with small marginal osteophytes. There are also uncovertebral osteophytes. There is no bony foraminal narrowing on the oblique views. XR/XR cervical spine 4V IMPRESSION: Mild multilevel degenerative changes. Electronically signed by: Nic Shaw MD 06/30/2025 05:26 PM EDT RP Dictated By: Nic Shaw MD Signed By: <Electronically signed by Nic Shaw MD in OV> 06/30/25 1726 DD/ 1653 TD/TT: 06/30/25 1705 Weigher Production: Procedure Note Donotuseinterpreter, Image - 06/30/2025 [place] [address] XRay Report Signed Patient: Lindsey Wilson MR#: [id number] : 1965Acct:[id number] Age/Sex: 60 / FADM Date: 06/30/25 Loc: HO.CT Attending Dr: Nick Lofton MD Ordering Physician: Wanda Ivory MD Date of Service: 06/30/25 Procedure(s): XR cervical spine 4V Accession Number(s): [id number] cc: Prachi Jones Nao MD EXAMINATION: XR CERVICAL SPINE CLINICAL INFORMATION: PAIN COMPARISON: None available. TECHNIQUE: 5 views of the cervical spine were obtained. FINDINGS: There is no prevertebral edema. There is mild disc space narrowing between C3-4 and C6-7 with small marginal osteophytes. There are also uncovertebral osteophytes. There is no bony foraminal narrowing on the oblique views. XR/XR cervical spine 4V IMPRESSION: Mild multilevel degenerative changes. Electronically signed by: Nic Shaw MD 06/30/2025 05:26 PM EDT RP Dictated By: Nic Shaw MD Signed By: <Electronically signed by Nic Shaw MD in OV> 06/30/25 1726 DD/ 1653 TD/TT: 06/30/25 1705 Weigher Production: us Wanda Ivory MD IMG XR PROCEDURES Final Result documented in this encounter Visit Diagnoses Diagnosis Neck pain- Primary Cervicalgia documented in this encounter Additional Health Concerns Assessment Noted Time PHQ-9 Depression Total Score: 6 03/26/20 4:46 PM EDT documented as of this encounter Care Teams Department Store General Manager Relationship Specialty Start Date End Date Shanice Jones MD [address] [place] [address] PCP - General Family Medicine 12/22/20 Sanaz Machuca 07/19/25 07/23/25 Cary Alonzo Conductor Sleeping CarCadmium Burner 08/26/24 Himanshu Caring 12/26/24 documented as of this encounter
--- OUTSIDE RECORDS SUMMARY | 2025-08-06 15:59 | XMS_ITS | Encounter Summary ---
Author Organization [facility] Address [address] [place] [address] Phone Care Team Providers Care Cellophane Bath Mixer Name Role Phone Raad Lucas NP, Renetta Primary Care Provider Malaika Augustin MD Primary Care Provider [phone] Shanice Jones MD Primary Care Provider + Shanice Jones MD Primary Care Provider + Encounter Details Date Type Department Care Team (Latest Contact Info) Description 02/24/2021 Ancillary Orders [facility] [address] [place] [address] Ernie Portillo, DO [address] [place] [phone] Chest pain, cardiac Social History Tobacco Use Types Packs/Day Years [...] PM EST Office Visit [facility] [address] [place] [address] Omari Potts DO [address] [place] [address] 01/31/2026 1:30 PM EDT Office Visit [facility] Neurology [address] [place] [address] Gabe Ramsey MD [address] [place] [address], 2nd [place] [address] [email or web address] documented as of this encounter Results * Holter Monitor 24 Hours (02/24/2021 9:51 AM EDT) Anatomical Region Laterality Modality Heart Other Narrative 02/27/2021 12:52 PM EDT Predominant rhythm: Sinus Minimum heart rate: 54 bpm Average heart rate: 69 bpm Maximum heart rate: 108 bpm Rare premature atrial complexes No significant arrhythmias noted Procedure Note Josephine Graham MD - 02/27/2021 Predominant rhythm: Sinus Minimum heart rate: 54 bpm Average heart rate: 69 bpm Maximum heart rate: 108 bpm Rare premature atrial complexes No significant arrhythmias noted Result [facility] Ernieroxane Kumarjose OBRIEN CV CARDIAC SERVICES ORDERABLE S Final Result documented in this encounter Visit Diagnoses Diagnosis Chest pain, cardiac Chest pain, cardiac documented in this encounter Additional Health Concerns Infection Onset Date Last Indicated Resolved Time CoV-Risk 02/20/2022 02/20/2022 03/03/2022 1:24 AM EDT CoV-Risk 06/05/2024 06/05/2024 06/16/2024 1:22 AM EDT documented as of this encounter Care Teams Cellophane Bath Mixer Relationship Specialty Start Date End Date Renetta Shankar NP PCP - General 07/08/20 06/04/21 Malaika Moeller MD PCP - General Family Medicine 06/05/21 10/17/21 Shanice Jones MD PCP - General 10/18/21 07/16/25 Shanice Jones MD [address] [place] [address] PCP - General Family Medicine 07/17/25 documented as of this encounter Additional Source Comments The information contained in this document represents components of the legal health record. It is not the complete legal health record.[facility]
--- OUTSIDE RECORDS SUMMARY | 2025-08-06 15:59 | XMS_ITS | Encounter Summary ---
Author Organization [employer] Address [address] [facility] 7t [place] [address] Care Team Providers Care Band Shover Name Role Phone Shanice Jones MD Primary Care Provider [phone] Sanaz Machuca Unavailable Encounter Details Date Type Department Care Team (Late st Contact Info) Description 10/13/2024 Orders Only [facility] [address] [place] [address] Provider, MD Maurisio Social History Tobacco Use [...] 9:00 AM EDT Office Visit [facility] 230 [place], [place] [phone] Shanice Jones MD [address] [place] [address] documented as of this encounter Procedures Procedure Name Priority Date/Time Associated Diagnosis Comments SURGICAL PATHOLOGY Routine 10/07/2024 3:22 PM EST documented in this encounter Results * Surgical Pathology (10/07/2024 3:22 PM EST) Historical Provider LAB PATHOLOGY ORDERABLES Final Result documented in this encounter Visit Diagnoses Not on filedocumented in this encounter Care Teams Band Shover Relationship Specialty Start Date End Date Shanice Jones MD [address] [place], [place] [phone] PCP - General Family Medicine 12/22/20 Sanaz Machuca 07/19/25 07/23/25 Cary Alonzo Certified Alcohol And Drug CounselorActuarial Associate 08/26/24 Himanshu Hayes 12/26/24 documented as of this encounter
--- OUTSIDE RECORDS SUMMARY | 2025-08-06 15:59 | XMS_ITS | Encounter Summary ---
Author Organization [facility] Address [address] [place] [address] Phone Care Team Providers Care Fish Processor Name Role Phone Malaika Moeller MD Primary Care Provider [phone] Shanice Jones MD Primary Care Provider + Shanice Jones MD Primary Care Provider + Encounter Details Date Type Department Care Team (Late st Contact Info) Description 07/19/2021 Procedure Pass [facility] [address] [place] [address] Social History Tobacco Use Types Packs/Day Years [...] 3:20 PM EST Office Visit [facility] [address] [place] [address] [place] [address] Omari Potts DO [address] [place] [address] 01/31/2026 1:30 PM EDT Office Visit [facility] Neurology [address] [place] [address] Gabe Ramsey MD 22 [facility], 2nd [place] [address] documented as of this encounter Visit Diagnoses Not on filedocumented in this encounter Additional Health Concerns Infection Onset Date Last Indicated Resolved Time CoV-Risk 02/20/2022 02/20/2022 03/03/2022 1:24 AM EDT CoV-Risk 06/05/2024 06/05/2024 06/16/2024 1:22 AM EDT documented as of this encounter Care Teams Fish Processor Relationship Specialty Start Date End Date Malaika Moeller MD PCP - General Family Medicine 06/05/21 10/17/21 Shanice Jones MD PCP - General 10/18/21 07/16/25 Shanice Jones MD [address] [place] [address] PCP - General Family Medicine 07/17/25 documented as of this encounter Additional Source Comments The information contained in this document represents components of the legal health record. It is not the complete legal health record.[facility]
--- OUTSIDE RECORDS SUMMARY | 2025-08-06 15:59 | XMS_ITS | Encounter Summary ---
Author Organization [facility] Address [address] [place] [address] Phone Care Team Providers Care Database Dba Name Role Phone Raad Luacs NP, Renetta Primary Care Provider Malaika Augustin MD Primary Care Provider [phone] Shanice Jones MD Primary Care Provider + Shanice Jones MD Primary Care Provider + Encounter Details Date Type Department Care Team (Latest Contact Info) Description 02/23/2021 Ancillary Orders [facility] [address] [place] [address] Ernie Portillo, DO [address] [place] [address] Chest pain, unspecified type Social History Tobacco Use Types Packs/Day Years [...] PM EST Office Visit [facility] [address] [place] [address] Omari Potts DO [address] [place] [address] [email or web address] 01/31/2026 1:30 PM EDT Office Visit [facility] Neurology [address] [place] [address] Gabe Ramsey MD 22 [facility], 2nd [place] [address] [email or web address] documented as of this encounter Visit Diagnoses Diagnosis Chest pain, unspecified type documented in this encounter Additional Health Concerns Infection Onset Date Last Indicated Resolved Time CoV-Risk 02/20/2022 02/20/2022 03/03/2022 1:24 AM EDT CoV-Risk 06/05/2024 06/05/2024 06/16/2024 1:22 AM EDT documented as of this encounter Care Teams Database Dba Relationship Specialty Start Date End Date Renetta Shankar NP PCP - General 07/08/20 06/04/21 Malaika Moeller MD PCP - General Family Medicine 06/05/21 10/17/21 Shanice Jones MD PCP - General 10/18/21 07/16/25 Shanice Jones MD 230 [place] [address] PCP - General Family Medicine 07/17/25 documented as of this encounter Additional Source Comments The information contained in this document represents components of the legal health record. It is not the complete legal health record.[facility]
--- OUTSIDE RECORDS SUMMARY | 2025-08-06 15:59 | XMS_ITS | Encounter Summary ---
Author Organization [employer] Address [address] [facility] 7 [place] [address] Care Team Providers Care Aquatics Specialist Name Role Phone Shanice Jones MD Primary Care Provider [phone] Sanaz Machuca Unavailable Reason for Referral * Imaging (Routine) - Closed Specialty Diagnoses / Procedures Referred By Contac t Referred To Contact Radiology Diagnoses Chronic left shoulder pain Procedures MR Shoulder w/o Contrast Left Shanice Jones MD 230 [place] [address] Phone: tel: fax: [address] Phone: tel: fax: Referral ID Status Reason Start Date Expiration Date Visits Re quested Visits Authorized [id number] Closed 05/06/2025 05/06/2026 1 1 Encounter Details Date Type Department Care Team (Late st Contact Info) Description 05/06/2025 Orders Only [facility] [address] [place], [place] [phone] Shanice Jones MD [address] [place] [phone] Chronic left shoulder pain (Primary Dx) Social History Tobacco Use [...] Description 08/10/2025 9:00 AM EDT Office Visit [facility] [address] [place] [address] Shanice Jones MD [address] [place] [address] documented as of this encounter Procedures Procedure Name Priority Date/Time Associated Diagnosis Comments MR SHOULDER WO CONTRAST LEFT Routine 05/22/2025 9:35 PM EDT Chronic left shoulder pain documented in this encounter Results * MR Shoulder w/o Contrast Left (05/22/2025 9:35 PM EDT) Anatomical Region Laterality Modality Upper Extremities, Shoulder Left Magn etic Resonance 05/22/2025 9:35 PM EDT Narrative 05/22/2025 9:37 PM EDT [address] [address] Magnetic Resonance Report Signed Patient: Lindsey Wilson MR#: [id number] : 1965 Acct:[id number] Age/Sex: 60 / F ADM Date: 05/20/25 Loc: HO.MRI Attending Dr: Shanice Jones MD Ordering Physician: Shanice Jones Date of Service: 05/20/25 Procedure(s): MR shoulder LT wo con Accession Number(s): [id number] cc: Shanice Jones CLINICAL HISTORY: chronic pain MR left shoulder Comparison: CR/SR - XR HUMERUS LT - 03/30/25 12:38 EDT Findings: No fracture or dislocation of the osseous structures. No bone marrow edema. Trace amount of cystic change in the humeral head. The acromioclavicular joint is unremarkable. Trace joint effusion. Trace fluid within the subacromial /subdeltoid bursa. There is increased signal in the supraspinatus tendon with partial tear of the articular surface. No retraction or muscular atrophy. There is increased signal in the infraspinatus and subscapularis tendons without tear, retraction or muscular atrophy. Teres minor is unremarkable. Unremarkable labrum and cartilage. The biceps tendon and bicipital-labral anchor are normal. The coracoacromial and coracohumeral ligaments are intact. Cutaneous and subcutaneous tissues are normal. The quadrilateral space is unremarkable. Impression: Supraspinatus, infraspinatus and subscapularis tendinopathy. Partial tear of supraspinatus. Trace joint effusion and fluid within the subacromial/subdeltoid bursa. This document has been electronically signed by: Marcia Sanchez MD on 05/22/2025 21:35:58 Dictated By: Marcia Holden MD Signed By: <Electronically signed by Marcia Holden MD in OV> 05/22/252135 DD/ 34 TD/TT: 05/22/252134 Women'S Ministry Director: Procedure Note Donotuseinterpreter, Image - 05/22/[address] [address] Magnetic Resonance Report Signed Patient: Lindsey Wilson MR#: [id number] : 1965Acct:[id number] Age/Sex: 60 / FADM Date: 05/20/25 Loc: HO.MRI Attending Dr: Shanice Jones MD Ordering Physician: Shanice Jones Date of Service: 05/20/25 Procedure(s): MR shoulder LT wo con Accession Number(s): [id number] cc: Shanice Jones CLINICAL HISTORY: chronic pain MR left shoulder Comparison: CR/SR - XR HUMERUS LT - 03/30/25 12:38 EDT Findings: No fracture or dislocation of the osseous structures. No bone marrow edema. Trace amount of cystic change in the humeral head. The acromioclavicular joint is unremarkable. Trace joint effusion. Trace fluid within the subacromial /subdeltoidbursa. There is increased signal in the supraspinatus tendon with partial tear of the articular surface. No retraction or muscular atrophy. There is increased signal in the infraspinatus and subscapularis tendons without tear, retraction or muscular atrophy. Teres minor is unremarkable. Unremarkable labrum and cartilage. The biceps tendon and bicipital-labral anchor are normal. The coracoacromial and coracohumeral ligaments are intact. Cutaneous and subcutaneous tissues are normal. The quadrilateral space is unremarkable. Impression: Supraspinatus, infraspinatus and subscapularis tendinopathy. Partial tear of supraspinatus. Trace joint effusion and fluid within the subacromial/subdeltoid bursa. This document has been electronically signed by: Marcia Sanchez MD on 05/22/2025 21:35:58 Dictated By: Marcia Holden MD Signed By: <Electronically signed by Marcia Holden MD in OV> 05/22/252135 DD/ 34 TD/TT: 05/22/252134 Women'S Ministry Director: Shanice Jones MD IMG MRI PROCEDURES Edited Resu lt - Final documented in this encounter Visit Diagnoses Diagnosis Chronic left shoulder pain- Primary Pain in joint, shoulder region documented in this encounter Additional Health Concerns Assessment Noted Time PHQ-9 Depression Total Score: 6 03/26/20 4:46 PM EDT documented as of this encounter Care Teams Aquatics Specialist Relationship Specialty Start Date End Date Shanice Jones MD 230 [place] [address] PCP - General Family Medicine 12/22/20 Sanaz Machuca 07/19/25 07/23/25 Cary Alonzo Ball Machine OperatorTram Driver 08/26/24 Himanshu Caring 12/26/24 documented as of this encounter
--- OUTSIDE RECORDS SUMMARY | 2025-08-06 15:59 | XMS_ITS | Clinical Summary ---
Author Organization [employer] Address [address] [facility] [address] [place] [address] Care Team Providers Care Application Administrator Name Role Phone Shanice Jones MD Primary Care Provider [phone] Allergies Active Allergy Reactions Criticality Noted Date [...] Active insulin aspart (NovoLOG) 100 UNIT/ML pen Inject 5 Units under the skin before breakfast, before lunch, and before evening meal. Active Lantus SoloStar 100 UNIT/ML pen Inject 20 Units under the skin at bedtime. Active zolpidem (Ambien) 10 MG tablet Take 10 mg by mouth if needed at bedtime. Active isosorbide mononitrate ER (Imdur) 30 MG 24 hr tablet Take 30 mg by mouth in the morning. Active rosuvastatin (Crestor) 10 MG tablet Take 1 tablet by mouth Once per day. Active clonazePAM (KlonoPIN) 1 MG tablet Take 1 tablet (1 mg) by mouth if needed in the morning, at noon, and at bedtime for anxiety. 90 tablet Active Additional Information Patient taking differently:1 mg Oral2 times daily, Reported on 01/04/2025 thiamine (Vitamin B-1) 50 MG tablet TAKE 1 TABLET BY MOUTH EVERY MORNING 90 tablet 3 Active pantoprazole (ProtoNix) 40 MG EC tablet TAKE 1 TABLET BY MOUTH TWICE DAILY IN THE MORNING AND IN THE EVENING 180 tablet 3 Active fremanezumab (Ajovy) 225 MG/1.5ML auto-injector Inject 675 mg under the skin every 3 (three) months. Active Easy Touch Pen Ringgold 31G X 6 MM miscIndication s:Type 2 diabetes mellitus treated with insulin ([facility]) USE FOUR TIMES DAILY DIRECTED 100 each [...] MEALS OR FOOD 90 tablet 3 Active docusate sodium (Colace) 100 MG capsule Take 1 capsule (100 mg) by mouth Once per day. 90 capsule 3 025 2025 Active lidocaine (Xylocaine) 5 % ointment Apply topically if needed in the morning, at noon, and at bedtime (neck pain). 30 g 3 025 2025 Active QUEtiapine (SEROquel) 25 MG tablet TAKE 1 TABLET BY MOUTH AT BEDTIME NEEDED FOR SLEEP 30 tablet 11 Active sucralfate (Carafate) 1 g tablet TAKE 1 TABLET BY MOUTH EVERY TWELVE HOURS NEEDED FOR HEARTBURN 60 tablet 3 Active nystatin (Mycostatin) creamIndicatio ns:Rash Apply topically 2 times daily. 30 g 3 025 2025 Active triamcinolone (Kenalog) 0.1 % creamIndicatio ns:Rash Apply topically if needed in the morning and at bedtime for rash. 45 g 2 Active Plavix 75 MG tablet Take 75 mg by mouth. 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 Will extend PT-1 to her other providers [...] artery provides dominant supply to the right [employer]ER[employer] TRUCK DRIVER.Nondominant right vertebral artery is diminutive throughout, not [...] Pt has had difficult maintaining appointments at [facility] [address], would like to come close to where she lives at [facility] Exercise counseling 02/13/2023 Left ankle sprain 11/20/2022 Assessment & Plan (02/13/2023 3:37 PM EDT): Continue followup with ortho and PT at [facility] Did gait training at PT as she says it is difficult to walk, even with a walker and complains of frequent falls Awaiting ganchos , which translates from Marshallese to braces Assessment & Plan (11/20/2022 10:28 AM EST): Continue followup with ortho and PT at [facility] Request gait training at PT as she says it is difficult to walk, even with a walker and complains of frequent falls Malignant neoplasm of endometrium 11/19/2022 Assessment & Plan (09/04/2024 12:53 PM EDT): No AUB currently Assessment & Plan (11/20/2022 10:25 AM EST): She is worried about reoccurance of neoplasm Will check CBC Ensure followup with transportation maintenance worker onc No vaginal bleeding currently Ptosis of [...] Overview (11/05/2024): Per Dr Potts, endo at [facility]: Fair control hemoglobin A1c 7.2% but [...] weekly -called px Trulicity is ready to diamond picker -endocrinology apt 05/28/[address] Potts -PCP apt 05/29/2024 Assessment & Plan (01/20/2024 12:53 PM EDT): Followed by [facility] endocrinology Assessment & Plan (11/20/2022 10:27 AM EST): Followed by [facility] endocrinology Gastroparesis 07/18/2021 Assessment & Plan (11/20/2022 10:26 AM EST): On Azithromycin three times weekly for prokinetic agent Tolerating this better than [facility] GI for gastric pacemaker consult once 10/2021 [...] view, she had her aneurysm stented at [facility] 05/2024. If she can discontinue Plavix per [...] Plan (02/13/2023 3:40 PM EDT): [facility] specifically state that there is no coverage for liposuction Recommend consultation with bariatric surgeon about weight loss, with her concerns about gastroparesis and the operation, she declines this referral for now Severe recurrent major depression 12/05/2015 Assessment & Plan (06/01/2024 11:02 AM EDT): Seen at [facility], last christos cummings psychiatrist 05/21/2024 -Denies SI [...] connected to a therapist and psychiatrist at [facility]. She meets with her therapist (Domi Palma) [...] none reported PLAN: 1. Follow up with [facility]: Not recommended for follow-up 2. Patient goal [...] Encounters Date Type Department Care Team Description 07/26/[address] [address] Shanice Jones MD HDF appointment 07/23/2025 Patient Outreach [facility] [address] [place] [address] Shanice Jones MD 07/23/2025 Patient Outreach [facility] [address] [place] [address] Shanice Jones MD Care Coordination (CP Care Coordination Chart Review) 07/22/2025 Patient Outreach [address] [address] Shanice Jones MD Transition Of Care (Tcm) (Hdf unscheduled) 07/20/[address] [address] Shanice Jones MD FYI 07/19/2025 Patient Outreach [address] [address] Shanice Jones MD 07/09/[address] [address] Shanice oJnes MD fyi 07/01/[address] [address] Shanice Jones MD Referral 06/30/2025 Results Follow-Up [facility] [address] [place] [phone] Wanda Ivory MD XR CERVICAL SPINE 4V 06/30/2025 Orders Only [facility] External Provider, [facility] 06/07/2025 3:30 PM EDT Office Visit [address] [address] Shanice Jones MD Type 2 diabetes mellitus with hyperglycemia, with long-term current use of insulin ([facility]) (Primary Dx); Rash; Cervicalgia; Chronic erythematous candidiasis 06/07/2025 Travel 05/31/[address] [address] Shanice Jones MD nurse triage 05/06/2025 Orders Only [address] [address] Shanice Jones MD Chronic left shoulder pain (Primary Dx) 05/06/[address] [address] Shanice Jones MD Nurse Triage from Last 3 Months Immunizations Immunization Administration Dates Next Due Hep B, adult 05/10/2015,03/05/2014,10/05/2013 Influenza Injectable Quadriv alant Preservative Free IIV4 MDCK 10/18/2020 Influenza injectable quadriv alent IIV4 with preservative 07/28/2018,08/09/2017 Influenza injectable quadriv alent preservative free 08/24/2022,10/02/2021,12/03/2016 Influenza, IIV3, injectable 10/28/2014 Influenza, Split (incl. riri fied surface antigen) 10/05/2013,08/12/2012 Influenza, seasonal, injecta ble, preservative free 07/21/2025 Rosaura SARS-CoV-2 Vaccination 01/25/2021 Pneumococcal Conjugate PCV [...] Sign Reading Time Taken Comments Blood Pressure 110/72 06/07/2025 3:31 PM EDT Pulse 80 06/07/2025 3:31 PM EDT Temperature 36.4 C (97.6 F) 06/07/2025 3:31 PM EDT Respiratory Rate 16 06/07/2025 3:31 PM EDT Oxygen Saturation 99% 03/30/2025 11:38 AM EDT Inhaled Oxygen Concentration - - Weight 75.4 kg (166 lb 3.2 oz) 06/07/2025 3:31 P M EDT Height 160 cm (5' 3 ) 06/07/2025 3:31 PM EDT Body Mass Index 29.44 06/07/2025 3:31 PM EDT Plan of Treatment Upcoming Encounters Date Type Department Care Team (Late st Contact Info) Description 08/10/2025 9:00 AM EDT Office Visit [facility] [address] [place] [address] Shanice Jones MD [address] [place], [place] [phone] Health Maintenance Due Date Last Done Comments CT Colonography 1965 FIT DNA/Cologuard 1965 FOBT 1965 Sigmoidoscopy 1965 Disability Screening 1965 Diabetes: Foot Exam 1975 Eye Exam 1975 Alcohol/Substance Use Screening 1977 Hepatitis A Vaccines (1 of 2 - Risk 2-dose series) 1984 SDOH Screening 01/09/2025 01/10/2024 RSV Patients and Patients Aged 60 years or older (1 - Risk 60-74 years 1-dose series) 2025 Diabetes: Urine Protein Screening 06/05/2025 06/05/2024, 10/28/2023, 10/10/2022, Additional history exists Lipid Panel 06/05/2025 06/05/2024, 01/09, 01/02/2023, Additional history exists Mammogram 06/10/2025 06/10/2024, 05/13, 07/04/2020, Additional history exists COVID-19 Vaccine ( season) 2025 12/01/2021, 01/25/2021 FIT 07/28/2025 07/28/2024 Diabetes: Hemoglobin A1C 01/15/2026 025, 06/02/2025, 03/26/2025, Additional history exists Depression Screening 03/26/2026 03/26/2025, 03/26/20 Tobacco Screening 06/07/2026 06/07/2025 DTaP/Tdap/Td Vaccines (3 - Td or Tdap) 12/25/2031 12/25/2021, 08/02/2010 Colonoscopy 10/07/2034 10/07/2024, 09/16/2014 Colorectal Cancer Screening 10/07/2034 Cervical Cancer Screening Discontinued HPV/Cotest Discontinued 10/24/2018 Pap Smear Discontinued 10/24/2018 Zoster Vaccines Completed 12/25/2021, 10/18/2020 Pneumococcal Vaccine: 50+ Years Completed 07/26/2023, 12/17/2016 HIV Screening Completed 06/05/2024 Hepatitis C Screening Completed 06/05/2024 Hepatitis B Vaccines Completed 12/01/2024, 05/10/2015, 03/05/2014, Additional history exists Influenza Vaccine Completed 07/21/2025, , 10/02/2021, Additional history exists HIB Vaccines Aged Out [...] Routine 06/30/2025 4:53 PM EDT Neck pain CT CHEST WO CONTRAST Routine 06/30/2025 4:39 PM EDT GENERAL Routine 06/07/2025 4:28 PM EDT Cervicalgia MR SHOULDER WO CONTRAST LEFT Routine 05/22/2025 9:35 PM EDT Chronic left shoulder pain POCT GLYCATED HEMOGLOBIN, TOTAL Routine 11/03/2024 11:39 [...] Recently Relevant to Health Maintenance Results * XR CERVICAL SPINE 4V (06/30/2025 4:53 PM EDT) Anatomical Region Laterality Modality Abdomen Radiographic Haylie ging 06/30/2025 4:53 PM EDT Narrative 06/30/2025 5:29 PM EDT [address] [address] XRay Report Signed Patient: Lindsey Wilson MR#: [id number] : 1965 Acct:[id number] Age/Sex: 60 / F ADM Date: 06/30/25 Loc: HO.CT Attending Dr: Nick Lofton MD Ordering Physician: Wanda Ivory MD Date of Service: 06/30/25 Procedure(s): XR cervical spine 4V Accession Number(s): [id number] cc: Prachi Jones Nao MD EXAMINATION: XR [...] 06/30/25 1726 DD/ 1653 TD/TT: 06/30/25 1705 Corn Sheller Operator: Procedure Note Donotuseinterpreter, Image - 06/30/2025 [place] [address] XRay Report Signed Patient: Lindsey Wilson MR#: [id number] : 1965Acct:[id number] Age/Sex: 60 / FADM Date: 06/30/25 Loc: HO.CT Attending Dr: Nick Lofton MD Ordering Physician: Wanda Ivory MD Date of Service: 06/30/25 Procedure(s): XR cervical spine 4V Accession Number(s): [id number] cc: Prachi Jones Nao MD EXAMINATION: XR [...] 06/30/25 1726 DD/ 1653 TD/TT: 06/30/25 1705 Corn Sheller Operator: us Wanda Ivory MD IMG XR PROCEDURES Final Result * CT Chest w/o Contrast (06/30/2025 4:39 PM EDT) Anatomical Region Laterality Modality Body, Chest Computed Tomogra phy 06/30/2025 4:39 PM EDT Narrative 06/30/2025 5:23 PM EDT [place] [address] CT Scan Report Signed Patient: Lindsey Wilson MR#: [id number] : 1965 Acct:[id number] Age/Sex: 60 / F ADM Date: 06/30/25 Loc: HO.CT Attending Dr: Nick Lofton MD Ordering Physician: Nick Lofton MD Date of Service: 06/30/25 Procedure(s): CT chest wo IV con Accession Number(s): [id number] cc: Shanice Jones; Nick Lofton MD Report Number: [id number]: Total DLP = 235.00 mGy-cm EXAMINATION: CT CHEST WITHOUT CONTRAST CLINICAL INFORMATION: R91.8 - Other nonspecific abnormal finding of lung field COMPARISON: June 22, 2024 TECHNIQUE: Multidetector volumetric CT imaging of the chest was done. Axial MIP volume rendering provided. Sagittal and coronal reformatted images were obtained. This CT examination was performed using dose optimization techniques as appropriate, variously including the following: *Automated exposure control *Adjustment of mA and/or kV according to patient size (this includes techniques or standardized protocols for targeted exams where dose is matched to indication/reason for exam; i.e. extremities or head) *Use of iterative reconstruction technique DLP: 235 mGY*cm FINDINGS: LUNGS: Axial CT #4 image 83/134: 3 mm right middle lobe pulmonary nodule is stable. Lungs are clear otherwise. MEDIASTINUM: There is a small sliding hiatal hernia. CORONARY ARTERY CALCIFICATION: Present PLEURA: There is no pleural effusion. No pleural mass or thickening. AXILLA: No lymphadenopathy. UPPER ABDOMEN: Small ill-defined low attenuating area in the posterior right hepatic lobe is stable (CT #3, 45/54). OSSEOUS STRUCTURES: There is motion artifact through the body of the sternum. CT/CT chest wo IV con IMPRESSION: Stable pulmonary nodule in the right middle lobe requires no further follow-up. Fleischner guidelines were followed. Electronically signed by: Nic Shaw MD 06/30/2025 05:19 PM EDT RP Dictated By: Nic Shaw MD Signed By: <Electronically signed by Nic Shaw MD in OV> 06/30/25 1719 DD/ 1639 TD/TT: 06/30/25 1657 Corn Sheller Operator: Procedure Note Donotuseinterpreter, Image - 06/30/[address] [place] [address] [address] Scan Report Signed Patient: Lindsey Wilson MR#: [id number] : 1965Acct:[id number] Age/Sex: 60 / FADM Date: 06/30/25 Loc: HO.CT Attending Dr: Nick Lofton MD Ordering Physician: Nick Lofton MD Date of Service: 06/30/25 Procedure(s): CT chest wo IV con Accession Number(s): [id number] cc: Shanice Jones; Nick Lofton MD Report Number: [id number]: Total DLP = 235.00 mGy-cm EXAMINATION: CT CHEST WITHOUT CONTRAST CLINICAL INFORMATION: R91.8 - Other nonspecific abnormal finding of lung field COMPARISON: June 22, 2024 TECHNIQUE: Multidetector volumetric CT imaging of the chest was done. Axial MIP volume rendering provided. Sagittal and coronal reformatted images were obtained. This CT examination was performed using dose optimization techniques as appropriate, variously including the following: *Automated exposure control *Adjustment of mA and/or kV according to patient size (this includes techniques or standardized protocols for targeted exams where dose is matched to indication/reason for exam; i.e. extremities or head) *Use of iterative reconstruction technique DLP: 235 mGY*cm FINDINGS: LUNGS: Axial CT #4 image 83/134: 3 mm right middle lobe pulmonary nodule is stable. Lungs are clear otherwise. MEDIASTINUM: There is a small sliding hiatal hernia. CORONARY ARTERY CALCIFICATION: Present PLEURA: There is no pleural effusion. No pleural mass or thickening. AXILLA: No lymphadenopathy. UPPER ABDOMEN: Small ill-defined low attenuating area in the posterior right hepatic lobe is stable (CT #3, 45/54). OSSEOUS STRUCTURES: There is motion artifact through the body of the sternum. CT/CT chest wo IV con IMPRESSION: Stable pulmonary nodule in the right middle lobe requires no further follow-up. Fleischner guidelines were followed. Electronically signed by: Nic Shaw MD 06/30/2025 05:19 PM EDT Dictated By: Nic Shaw MD Signed By: <Electronically signed by Nic Shaw MD in OV> 06/30/25 1719 DD/ 1639 TD/TT: 06/30/25 1657 Corn Sheller Operator: [facility] External Provider IMG CT PROCEDURES Final Result * Trigger point (06/07/2025 4:28 PM EDT) Shanice Ugarte MD - 06/07/2025 4:28 PM EDT Shanice Jones MD 06/09/2025 9:47 AM Trigger point Date/Time: 06/07/2025 4:28 PM Performed by: Shanice Jones MD Authorized by: Shanice Jones MD Confirmed correct patient, procedure, site, and patient consented: Yes Consent: Consent obtained: Verbal Consent given by: Patient Procedure risks and benefits discussed: Yes Patient questions answered: Yes Patient agrees, verbalizes understanding, and wants to proceed: Yes [place] protocol: Procedure explained and questions answered to patient or proxy's satisfaction: yes Relevant documents present and verified: yes Patient identity confirmed: Verbally with patient Indications: Indications: Muscle spasm trapezius muscles Pre-procedure details: Procedure prep: 70% alchol pads. Sedation: Sedation type: None Anesthesia: Anesthesia method: None Procedure specific details: Points of maximal tenderness and muscle triggering palpated on the Left and Right trapezius muscles, five points in total on the Left side and three points on the Right side. 0.3-0.5cc of lidocaine 2% without epi was injected into each point in a stellate manner. Post-procedure details: Procedure completion: Tolerated well, no immediate complications us Shanice Jones MD IN CLINIC/BEDSIDE ORDERABLES F inal Result * MR Shoulder w/o Contrast Left (05/22/2025 9:35 PM EDT) Anatomical Region Laterality Modality Upper Extremities, Shoulder Left Magn etic Resonance 05/22/2025 9:35 PM EDT Narrative 05/22/2025 9:37 PM EDT [place] [address] Magnetic Resonance Report Signed Patient: Lindsey Wilson MR#: [id number] : 1965 Acct:[id number] Age/Sex: 60 / F ADM Date: 05/20/25 Loc: HO.MRI Attending Dr: Shanice Jones MD Ordering Physician: Shanice Jones Date of Service: 05/20/25 Procedure(s): MR shoulder LT wo con Accession Number(s): [id number] cc: Shanice Jones CLINICAL HISTORY: chronic pain [...] in OV> 05/22/252135 DD/ 34 TD/TT: 05/22/252134 Corn Sheller Operator: Procedure Note Donotuseinterpreter, Image - 05/22/[address] [address] Magnetic Resonance Report Signed Patient: Lindsey Wilson MR#: [id number] : 1965Acct:[id number] Age/Sex: 60 / FADM Date: 05/20/25 Loc: HO.MRI Attending Dr: Shanice Jones MD Ordering Physician: Shanice Jones Date of Service: 05/20/25 Procedure(s): MR shoulder LT wo con Accession Number(s): [id number] cc: Shanice Jones CLINICAL HISTORY: chronic pain [...] in OV> 05/22/252135 DD/ 34 TD/TT: 05/22/252134 Corn Sheller Operator: Shanice Jones MD IMG MRI PROCEDURES Edited Resu lt - Final * Hm Colonoscopy (10/07/2024 10:40 AM EST) Colonoscopy Normal Normal Narrative Idalmis Huber - 10/07/2024 10:40 AM EST Recommended 10 years . see results scanned in media aid on 10/07/2024 Historical Provider HEALTH MAINTENANCE Edited Result - Final * BI Mammogram Screening Tomosynthesis Bilateral (06/10/2024 3:25 PM EDT) Anatomical Region Laterality Modality Breast Bilateral Mammography 06/10/2024 3:25 PM EDT Narrative 06/17/2024 11:18 AM EDT [facility] [address] [place], [place] [address] Mammography Report Signed Patient: Lindsey Wilson MR#: [id number] : 1965 Acct:[id number] Age/Sex: 59 / F ADM Date: 06/10/24 Loc: HO.MAMMO Attending Dr: Shanice Jones MD Ordering Physician: Shanice Jones Results: 1Negative Date of Service: 06/10/24 Follow Up: 1 Year From Orig inal Mammogram Procedure(s): MM tomosynthesis screening BI Accession Number(s): [id number] cc: Shanice Jones EXAMINATION: MM SCREENING DIGITAL [...] in OV> 06/17/24 1114 DD/ 1525 TD/TT: Corn Sheller Operator: Procedure Note Donotuseinterpreter, Image - 06/17/20[facility] [address] [place], [place] [address] Mammography Report Signed Patient: Lindsey Wilson MR#: [id number] : 1965Acct:[id number] Age/Sex: 59 / FADM Date: 06/10/24 Loc: AJMESO Attending Dr: Shanice Jones MD Ordering Physician: Felix Jonesults: 1Negative Date of Service: 06/10/24Follow Up: 1 Year From Orig inal Mammogram Procedure(s): MM tomosynthesis screening BI Accession Number(s): [id number] cc: Shanice Jones EXAMINATION: MM SCREENING DIGITAL [...] in OV> 06/17/24 1114 DD/ 1525 TD/TT: Corn Sheller Operator: Shanice Jones MD IMG BI PROCEDURES Final Result * Albumin, Random Urine W/Creatinine (06/05/2024 11:45 AM EDT) Creatinine, Urine 148.96 mg/dL [facility] Microalbumin Urine 12.0 mg/L [facility] Microalbum Creatinine Ratio Ur 8.0 <30 ug/mg cr [facility] Comment:Albumin/Creatinine R atio Reference Ranges: Normal: < 30 ug/mg creatinine Microalbuminuria: 30 - 300 ug/mg creatinineClinical Albuminuria: > 300 ug/mg creatinine Urine (Urine, Random) 06/05/2024 11:45 AM EDT 06/05/2024 12:51 PM EDT Shanice Jones MD LAB URINE ORDERABLES Final Res ult [facility] [address] [place] [phone] * Hepatitis C Antibody with Reflex to HCV, RNA, Quantitative, Real-Time PCR (06/05/2024 11:45 AM EDT) Hepatitis C Antibody Nonreactive Nonreactive [facility] Comment:Antibodies to HCV no t detected; does not exclude early acuteHCV infection. Blood Venous blood specimen / Unknown 06/05/2024 11:45 AM EDT 06/05/2024 1:04 PM EDT Gissel Machuca MD LAB BLOOD ORDERAB LES Final Result Performing Organization Address City/[facility]/ZIP Co de Phone Number [facility] [address] [place] [address] [phone] * HIV-1/2 Antigen and Antibodies, Fourth Generation, with Reflexes (06/05/2024 11:45 AM EDT) HIV AB/AG Nonreactive Nonreactive [facility] Comment:HIV-1 p24 Ag and/or HIV-1/HIV-2 Ab not detected.A test result that is nonreactive does not exclude thepossibility of exposure to or infection with HIV-1 and/orHIV-2. Nonreactive results in this assay for individualswith prior exposure to HIV-1 and/or HIV-2 may be due toantigen and antibody levels that are below the limit ofdetection of this assay.The [employer] HIV Ag/Ab Combo assay result andsupplemental assay results should be interpreted inconjunction with the patient's clinical presentation,history and other laboratory results. If the results areinconsistent with clinical evidence, additional testing issuggested to confirm the result. Blood Venous blood specimen / Unknown 06/05/2024 11:45 AM EDT 06/05/2024 1:04 PM EDT us Gissel Machuca MD LAB BLOOD ORDERAB LES Final Result Performing Organization Address City/[facility]/ZIP Co de Phone Number [facility] [address] [place] [phone] * (ABNORMAL) Lipid Panel, Standard (06/05/2024 11:45 AM EDT) Triglycerides 132 <150 mg/dL [facility] Comment:Desirable Triglyceri de: less than 150 mg/dLBorderline High Triglyceride 150-199 mg/dLHigh Triglyceride: 200-499 mg/dLVery High Triglyceride: greater than or equal to 5OO mg/dL Cholesterol 110 <200 mg/dL [facility] Comment:Desirable Cholestero l: less than 200 mg/dLBorderline High Cholesterol: 200-239 mg/dLHigh Cholesterol: greater than 239 mg/dL LDL Cholesterol Calculated 47 <100 mg/dL [facility] Comment:Desirable LDL: less than 100 mg/dLNear Optimal/Above Optimal LDL: 110- 129 mg/dLBorderline High LDL: 130-159 mg/dLHigh LDL: 160-189 mg/dLVery High LDL: greater than or equal to 190 mg/dL HDL Cholesterol 37(L) >40 mg/dL [facility] Comment:Desirable HDL: great er than 40 mg/dL Note: This HDL assay may give artificially low results in patients with liver disease. Blood Venous blood specimen / Unknown 06/05/2024 11:45 AM EDT 06/05/2024 1:04 PM EDT Shanice Jones MD LAB BLOOD ORDERABLES Final Res ult [facility] [address] [place] [phone] [phone] * PAP/HPV (10/24/2018) Pap Smear 1. NILM 1. NILM HPV Not Detected Undetected, Indeterminat e, Quantitative , Not Detected Historical Provider HEALTH MAINTENANCE Final Result from Last 3 Months or Most Recently Relevant to Health Maintenance Insurance REM ENTER[employer] C3 Care Teams Application Administrator Relationship Specialty Start Date End Date Shanice Jones MD [address] [place] [address] PCP - General Family Medicine 12/22/20 Cary Alonzo Engineering ProfessorCreel Clerk 08/26/24 Himanshu Caring 12/26/24
--- OUTSIDE RECORDS SUMMARY | 2025-08-06 15:59 | XMS_ITS | Encounter Summary ---
Author Organization [facility] Address [address] [place] [address] Phone Care Team Providers Care Chip Tuner Name Role Phone Raad Lucas NP, Renetta Primary Care Provider Malaika Augustin MD Primary Care Provider [phone] Shanice Jones MD Primary Care Provider + Shanice Jones MD Primary Care Provider + Encounter Details Date Type Department Care Team (Late st Contact Info) Description 02/24/2021 Procedure [facility] [address] [place] [address] [place] [address] Social History Tobacco Use Types Packs/Day Years [...] 3:20 PM EST Office Visit [facility] [address] [place] [address] [place] [address] Omari Potts DO [address] [place] [address] 01/31/2026 1:30 PM EDT Office Visit [facility] [address] [place] [address] Gabe Ramsey MD [address] [facility], 2nd [place] [address] documented as of this encounter Visit Diagnoses Not on filedocumented in this encounter Additional Health Concerns Infection Onset Date Last Indicated Resolved Time CoV-Risk 02/20/2022 02/20/2022 03/03/2022 1:24 AM EDT CoV-Risk 06/05/2024 06/05/2024 06/16/2024 1:22 AM EDT documented as of this encounter Care Teams Chip Tuner Relationship Specialty Start Date End Date Renetta Shankar NP PCP - General 07/08/20 06/04/21 Malaika Moeller MD PCP - General Family Medicine 06/05/21 10/17/21 Shanice Jones MD PCP - General 10/18/21 07/16/25 Shanice Jones MD [address] [place] [address] PCP - General Family Medicine 07/17/25 documented as of this encounter Additional Source Comments The information contained in this document represents components of the legal health record. It is not the complete legal health record.[facility]
== END 2025-08-06 16:01 | disposition home or self-care (01) ==
LOC: HO.HPS 15:34
PROVIDERS: PCP General Practice; Visit Provider Hospitalist
DX: G47.33 Obstructive sleep apnea (adult) (pediatric) (principal); R06.09 Other forms of dyspnea; K21.9 Gastro-esophageal reflux disease without esophagitis; J39.8 Other specified diseases of upper respiratory tract; G47.34 Idiopathic sleep related nonobstructive alveolar hypoventilation; R91.8 Other nonspecific abnormal finding of lung field
CPT/HCPCS: 99214

== ENCOUNTER → 2025-08-06 15:34 | Outpatient (BNVA) | payer MEDICAID, SELFPAY | PROVIDERS: PCP General Practice; Visit Provider Hospitalist | DX: K21.9 Gastro-esophageal reflux disease without esophagitis (principal); G47.33 Obstructive sleep apnea (adult) (pediatric); R06.09 Other forms of dyspnea; J39.8 Other specified diseases of upper respiratory tract; G47.34 Idiopathic sleep related nonobstructive alveolar hypoventilation; R91.8 Other nonspecific abnormal finding of lung field | CPT/HCPCS: 99212 ==

== ENCOUNTER 2025-09-15 15:19 | Outpatient (AMB) | payer MEDICAID, SELFPAY ==
--- NOTE | 2025-09-15 15:20 | A.OFFVIS_ITS ---
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 She describes her pain as sharp in nature. Most of the pain is along the superior and lateral aspects of her shoulder. Her symptoms have gotten worse over the last year in spite of continued non operative treatments. She has had cortisone injections in the past which gave her minimal relief. She has also tried Tylenol, anti- inflammatory medicines, a home exercise program and physical therapy which gave her minimal relief. The patient has difficulty lifting her left hand above shoulder height. At this point her left shoulder pain and stiffness are interfering with her activities of daily living and her ability to sleep well through the night. Desk Director Required: Yes Desk Director Language: Unemployment Claims Adjudicator Services: Desk Director Offered & Declined Allergies latex (LATEX) Allergy (Intermediate, Verified 09/15/25 15:30) ITCH/RASH Penicillins Allergy (Intermediate, Verified 09/15/25 15:30) RASH magnesium Allergy (Verified 09/15/25 15:30) Palpitations milk Allergy (Verified 09/15/25 15:30) stomach pain, red rash eggs Allergy (Uncoded 09/15/25 15:30) stomach pain Medication List - Last Reconciled 09/15/25 by New Lezama MD albuterol sulfate 2.5 mg (3 mL) inhalation Q6H PRN 30 days albuterol sulfate 90 mcg/actuation (ProAir RespiClick) 2 inhalations inhalation Q6H PRN 30 days aspirin (Adult Low Dose Aspirin) 81 mg PO DAILY budesonide-formoterol 160-4.5 mcg/actuation (Symbicort) 2 puffs PO BID carvedilol 3.125 mg PO DAILY clonazepam 1 mg PO BEDTIME clotrimazole 1% (Clotrimazole-7) 1 appful vaginal BEDTIME 7 days cyclobenzaprine 5 mg PO TID PRN 10 days dextromethorphan-guaifenesin 5-100 mg/5 mL (Robitussin Cough-Chest Congestion DM) 10 mL PO Q6H PRN dulaglutide (Trulicity) 1.5 mg subcut QWEEK escitalopram oxalate 20 mg PO DAILY ferrous sulfate 325 mg PO DAILY fluticasone propion-salmeterol 500-50 mcg/dose (Advair Diskus) 1 inh inhalation BID furosemide 20 mg PO QAM glycerin (adult) 1 supp [place] DAILY PRN insulin glargine (Lantus U-100 Insulin) 60 units subcut DAILY insulin regular human (Novolin R FlexPen) 15 units subcut TID [isosorbide mononitrate 60 mg PO DAILY] levothyroxine 50 mcg PO DAILY metformin 1,000 mg PO BID nebulizers As directed pantoprazole 40 mg PO BID prazosin 2 mg PO BEDTIME pregabalin 150 mg PO BID quetiapine (Seroquel) 25 mg PO BEDTIME [rosuvastatin 20 mg PO DAILY] [Vitamin D (with calcium) 1,000 multiple units PO DAILY] [facility] Medical History Pulmonary nodules Asthma-COPD overlap syndrome Tracheomalacia Nocturnal hypoxia History of nephrolithiasis Tremors of nervous system Dyspnea PTSD (post-traumatic stress disorder) Delayed gastric emptying Chronic idiopathic constipation Post-op pain Acute hemorrhoid Increased BMI Anxiety History of uterine cancer Arthritis Back pain History of gastroenteritis Hypothyroid Diabetes GERD (gastroesophageal reflux disease) Depression Migraine Asthma History of tachycardia Tachycardia Coronary artery disease Hypertension Surgical History Hx of colonoscopy History of endoscopy History of section History of cardiac catheterization History of hysterectomy Family History Brother Stomach cancer Esophageal cancer Colon cancer Maternal Aunt History of breast cancer Paternal Aunt History of breast cancer Other Cancer Diabetes Heart problem Kidney problem Liver problem Thyroid condition Social History Household Members: Children Household Members Other:: lives with son Alcohol intake: never Patient Tobacco Use Status: Never used Tobacco Current occupational status: disabled Physical Exam Vital Signs: BMI result Body Mass Index 29.0 Const Other: Well-nourished well-developed very friendly female awake alert and oriented x3 in no acute distress Extrem Other: Left shoulder examination shows decreased active and passive range of motion when compared to her right shoulder, 4+ out of 5 strength with supraspinatus testing, positive impingement signs, tenderness over her acromioclavicular joint, no instability Results Reviewed Results Reviewed: MRI of the patient's left shoulder show severe acromioclavicular joint narrowing, a type 2 acromion, signal change within the supraspinatus tendon most likely due to adhesive capsulitis Assessment & Plan Assessment & Plan (1) Impingement syndrome of left shoulder: Code(s): M75.42 - Impingement syndrome of left shoulder Category: Medical Plan Ms. Rolly Strange presents with progressively worsening left shoulder pain and stiffness due to impingement syndrome, acromioclavicular joint arthritis and adhesive capsulitis. I had a lengthy discussion with the patient regarding the treatment options. At this point she has failed continued non operative treatments. The risks and benefits of left shoulder surgery were discussed at length with the patient. The patient wishes to proceed with surgery. Surgery will involve left shoulder arthroscopic distal clavicle excision, left shoulder arthroscopic acromioplasty, left shoulder arthroscopic capsular release and left shoulder manipulation under anesthesia. The patient will be scheduled for next available date. She will follow up as instructed. Feel free to call me at any time should questions regarding her orthopedic management arise. Thank you very much for asking me to see this very friendly patient. I spent 20 minutes in reviewing the patient's records and imaging studies, seeing the patient and documenting in the medical record. Coding Level of Care Code New Pt Level 3 (23818) Complex EM visit Add On G2211 Diagnoses Impingement syndrome of left shoulder M75.42
[2025-09-15 15:30] VITALS: BMI 29.0
--- OUTSIDE RECORDS SUMMARY | 2025-09-15 18:15 | XMS_ITS | Encounter Summary ---
Author Organization [facility] Address [address] [place] [address] Phone Care Team Providers Care Oracle Bpm Developer Name Role Phone Shanice Jones MD Primary Care Provider + Shanice Jones MD Primary Care Provider + Encounter Details Date Type Department Care Team (Late st Contact Info) Description 08/13/2022 Procedure Pass [facility], Ct Scan - [facility] [address] [place] [address] Social History Tobacco Use Types Packs/Day Years [...] 2:30 PM EDT Teresa Rubio RN * [place] Suicide Severity Rating Scale (Screener/Recent Self-Report) Question [...] 3:20 PM EST Office Visit [facility] [address] [place] [address] Omari Potts DO 22 [place] [address] 01/31/2026 1:30 PM EDT Office Visit [facility] [address] [place] [address] Gabe Ramsey MD [address] [place] [address], 2nd [place] [address] documented as of this encounter Visit Diagnoses Not on filedocumented in this encounter Additional Health Concerns Infection Onset Date Last Indicated Resolved Time CoV-Risk 06/05/2024 06/05/2024 06/16/2024 1:22 AM EDT documented as of this encounter Care Teams Oracle Bpm Developer Relationship Specialty Start Date End Date Shanice Jones MD PCP - General 10/18/21 07/16/25 Shanice Jones MD [address] [place] [address] PCP - General Family Medicine 07/17/25 documented as of this encounter Additional Source Comments The information contained in this document represents components of the legal health record. It is not the complete legal health record.[facility]
--- OUTSIDE RECORDS SUMMARY | 2025-09-15 18:15 | XMS_ITS | Encounter Summary ---
Author Organization [facility] Address [address] [place] [address] Phone Care Team Providers Care Master Steam Yacht Name Role Phone Shanice Jones MD Primary Care Provider + Shanice Jones MD Primary Care Provider + Encounter Details Date Type Department Care Team (Late st Contact Info) Description 08/13/2022 Procedure Pass [facility], Ct Scan - [facility] [address] [place] [address] Social History Tobacco Use Types Packs/Day Years [...] 2:30 PM EDT Teresa Rubio RN * [place] Suicide Severity Rating Scale (Screener/Recent Self-Report) Question [...] 3:20 PM EST Office Visit [facility] [address] [place] [address] Omari Potts DO 22 [place] [address] 01/31/2026 1:30 PM EDT Office Visit [facility] [address] [place] [address] Gabe Ramsey MD [address] [place] [address], 2nd [place] [address] documented as of this encounter Visit Diagnoses Not on filedocumented in this encounter Additional Health Concerns Infection Onset Date Last Indicated Resolved Time CoV-Risk 06/05/2024 06/05/2024 06/16/2024 1:22 AM EDT documented as of this encounter Care Teams Master Steam Yacht Relationship Specialty Start Date End Date Shanice Jones MD PCP - General 10/18/21 07/16/25 Shanice Jones MD [address] [place] [address] PCP - General Family Medicine 07/17/25 documented as of this encounter Additional Source Comments The information contained in this document represents components of the legal health record. It is not the complete legal health record.[facility]
--- OUTSIDE RECORDS SUMMARY | 2025-09-15 18:15 | XMS_ITS | Encounter Summary ---
Author Organization [facility] Address [address] [place] [address] Phone Care Team Providers Care Photo Mask Pattern Generator Name Role Phone Shanice Jones MD Primary Care Provider + Encounter Details Date Type Department Care Team (Late st Contact Info) Description 07/17/2025 Procedure Pass [facility], Ct Scan - [facility] [address] [place] [address] Social History Tobacco Use Types Packs/Day Years [...] 8:00 PM EDT Nellie Bustamante RN * [place] Suicide Severity Rating Scale (Screener/Recent Self-Report) Question [...] PM EST Office Visit [facility] [address] [place] [address] Omari Potts DO 22 [place] [address] [email or web address] 01/31/2026 1:30 PM EDT Office Visit [facility] [address] [place] [address] Gabe Ramsey MD [address] [place] [address], 2nd [place] [address] [email or web address] documented as of this encounter Visit Diagnoses Not on filedocumented in this encounter Care Teams Photo Mask Pattern Generator Relationship Specialty Start Date End Date Shanice Jones MD [address] [place] [address] PCP - General Family Medicine 07/17/25 documented as of this encounter Additional Source Comments The information contained in this document represents components of the legal health record. It is not the complete legal health record.[facility]
--- OUTSIDE RECORDS SUMMARY | 2025-09-15 18:15 | XMS_ITS | Encounter Summary ---
Author Organization [facility] Address [address] [place] [address] Phone Care Team Providers Care Cement Worker Name Role Phone Shanice Jones MD Primary Care Provider + Shanice Jones MD Primary Care Provider + Encounter Details Date Type Department Care Team (Late st Contact Info) Description 05/03/2023 Procedure Pass [facility], Ct Scan - [facility] [address] [place] [address] Social History Tobacco Use Types Packs/Day Years [...] 12:19 PM EDT Kamilah Charles RN * [place] Suicide Severity Rating Scale (Screener/Recent Self-Report) Question [...] 3:20 PM EST Office Visit [facility] [address] [place] [address] [place] [address] Omari Potts DO [address] [place] [address] 01/31/2026 1:30 PM EDT Office Visit [facility] [address] [place] [address] [place] [address] Gabe Ramsey MD [address] [place] [address], [address] [place] [address] documented as of this encounter Visit Diagnoses Not on filedocumented in this encounter Additional Health Concerns Infection Onset Date Last Indicated Resolved Time CoV-Risk 06/05/2024 06/05/2024 06/16/2024 1:22 AM EDT documented as of this encounter Care Teams Cement Worker Relationship Specialty Start Date End Date Shanice Jones MD PCP - General 10/18/21 07/16/25 Shanice Jones MD [address] [place] [address] PCP - General Family Medicine 07/17/25 documented as of this encounter Additional Source Comments The information contained in this document represents components of the legal health record. It is not the complete legal health record.[facility]
--- OUTSIDE RECORDS SUMMARY | 2025-09-15 18:15 | XMS_ITS | Encounter Summary ---
Author Organization [facility] Address [address] [place] [address] Phone Care Team Providers Care Gore Cutter Name Role Phone Shanice Jones MD Primary Care Provider + Shanice Jones MD Primary Care Provider + Encounter Details Date Type Department Care Team (Late st Contact Info) Description 06/05/2024 Procedure Pass [facility], Ct Scan - [facility] [address] [place] [address] Social History Tobacco Use Types Packs/Day Years [...] 1:53 AM EDT Gabby Whitehead RN * [place] Suicide Severity Rating Scale (Screener/Recent Self-Report) Question [...] 3:20 PM EST Office Visit [facility] [address] [place] [address] Omari Potts DO [address] [place] [address] 01/31/2026 1:30 PM EDT Office Visit [facility] [address] [place] [address] Gabe Ramsey MD [address] [place] [address], 2nd [place] [address] [email or web address] documented as of this encounter Visit Diagnoses Not on filedocumented in this encounter Additional Health Concerns Infection Onset Date Last Indicated Resolved Time CoV-Risk 06/05/2024 06/05/2024 06/16/2024 1:22 AM EDT documented as of this encounter Care Teams Gore Cutter Relationship Specialty Start Date End Date Shanice Jones MD PCP - General 10/18/21 07/16/25 Shanice Jones MD [address] [place] [address] PCP - General Family Medicine 07/17/25 documented as of this encounter Additional Source Comments The information contained in this document represents components of the legal health record. It is not the complete legal health record.[facility]
--- OUTSIDE RECORDS SUMMARY | 2025-09-15 18:15 | XMS_ITS | Encounter Summary ---
Author Organization [facility] Address [address] [place] [address] Phone Care Team Providers Care Tape Controlled Machine Stitcher Name Role Phone Shanice Jones MD Primary Care Provider + Shanice Jones MD Primary Care Provider + Encounter Details Date Type Department Care Team (Late st Contact Info) Description 06/05/2024 Procedure Pass [facility], Ct Scan - [facility] [address] [place] [address] Social History Tobacco Use Types Packs/Day Years [...] 1:53 AM EDT Gabby Whitehead RN * [place] Suicide Severity Rating Scale (Screener/Recent Self-Report) Question [...] 3:20 PM EST Office Visit [facility] [address] [place] [address] Omari Potts DO [address] [place] [address] 01/31/2026 1:30 PM EDT Office Visit [facility] [address] [place] [address] Gabe Ramsey MD [address] [place] [address], 2nd [place] [address] [email or web address] documented as of this encounter Visit Diagnoses Not on filedocumented in this encounter Additional Health Concerns Infection Onset Date Last Indicated Resolved Time CoV-Risk 06/05/2024 06/05/2024 06/16/2024 1:22 AM EDT documented as of this encounter Care Teams Tape Controlled Machine Stitcher Relationship Specialty Start Date End Date Shanice Jones MD PCP - General 10/18/21 07/16/25 Shanice Jones MD [address] [place] [address] PCP - General Family Medicine 07/17/25 documented as of this encounter Additional Source Comments The information contained in this document represents components of the legal health record. It is not the complete legal health record.[facility]
--- OUTSIDE RECORDS SUMMARY | 2025-09-15 18:15 | XMS_ITS | Encounter Summary ---
Author Organization [facility] Address [address] [place] [address] Phone Care Team Providers Care High School Art Teacher Name Role Phone Shanice Jones MD Primary Care Provider + Shanice Jones MD Primary Care Provider + Encounter Details Date Type Department Care Team (Late st Contact Info) Description 10/07/2024 Procedure Pass [facility] Admitting Dept Virtual Department 30 [place] [address] Social History Tobacco Use Types Packs/Day Years [...] 3:20 PM EST Office Visit [facility] [address] [place] [address] Omari Potts DO 22 [place] [address] 01/31/2026 1:30 PM EDT Office Visit [facility] [address] [place] [address] Gabe Ramsey MD [address] [place] [address], 2nd [place] [address] documented as of this encounter Visit Diagnoses Not on filedocumented in this encounter Care Teams High School Art Teacher Relationship Specialty Start Date End Date Shanice Jones MD PCP - General 10/18/21 07/16/25 Shanice Jones MD [address] [place] [address] PCP - General Family Medicine 07/17/25 documented as of this encounter Additional Source Comments The information contained in this document represents components of the legal health record. It is not the complete legal health record.[facility]
--- OUTSIDE RECORDS SUMMARY | 2025-09-15 18:15 | XMS_ITS | Encounter Summary ---
Author Organization [facility] Address [address] [place] [address] Phone Care Team Providers Care House Player Name Role Phone Shanice Jones MD Primary Care Provider + Encounter Details Date Type Department Care Team (Late st Contact Info) Description 07/17/2025 Procedure Pass [facility] [address] [place] [address] Social History Tobacco Use Types Packs/Day Years [...] 8:00 PM EDT Nellie Bustamante RN * [place] Suicide Severity Rating Scale (Screener/Recent Self-Report) Question [...] PM EST Office Visit [facility] [address] [place] [address] Omari Potts DO 22 [place] [address] [email or web address] 01/31/2026 1:30 PM EDT Office Visit [facility] [address] [place] [address] Gabe Ramsey MD [address] [place] [address], 2[address] [place] [address] [email or web address] documented as of this encounter Visit Diagnoses Not on filedocumented in this encounter Care Teams House Player Relationship Specialty Start Date End Date Shanice Jones MD [address] [place] [address] PCP - General Family Medicine 07/17/25 documented as of this encounter Additional Source Comments The information contained in this document represents components of the legal health record. It is not the complete legal health record.[facility]
--- OUTSIDE RECORDS SUMMARY | 2025-09-15 18:15 | XMS_ITS | Encounter Summary ---
Author Organization [facility] Address [address] [place] [address] Phone Care Team Providers Care Cigar Packer Name Role Phone Shanice Jones MD Primary Care Provider + Shanice Jones MD Primary Care Provider + Encounter Details Date Type Department Care Team (Late st Contact Info) Description 08/18/2022 Procedure Pass [facility], Ct Scan - [facility] [address] [place] [address] Social History Tobacco Use Types Packs/Day Years [...] 7:05 PM EDT Betty Thomas RN * [place] Suicide Severity Rating Scale (Screener/Recent Self-Report) Question [...] 3:20 PM EST Office Visit [facility] [address] [place] [address] Omari Potts DO [address] [place] [address] 01/31/2026 1:30 PM EDT Office Visit [facility] [address] [place] [address] Gabe Ramsey MD [address] [place] [address], 2nd [place] [address] documented as of this encounter Visit Diagnoses Not on filedocumented in this encounter Additional Health Concerns Infection Onset Date Last Indicated Resolved Time CoV-Risk 06/05/2024 06/05/2024 06/16/2024 1:22 AM EDT documented as of this encounter Care Teams Cigar Packer Relationship Specialty Start Date End Date Shanice Jones MD PCP - General 10/18/21 07/16/25 Shanice Jones MD [address] [place] [address] PCP - General Family Medicine 07/17/25 documented as of this encounter Additional Source Comments The information contained in this document represents components of the legal health record. It is not the complete legal health record.[facility]
--- OUTSIDE RECORDS SUMMARY | 2025-09-15 18:15 | XMS_ITS | Encounter Summary ---
Author Organization [facility] Address [address] [place] [address] Phone Care Team Providers Care Vamp Maker Name Role Phone Shanice Jones MD Primary Care Provider + Encounter Details Date Type Department Care Team (Late st Contact Info) Description 07/17/2025 Procedure Pass [facility], Ct Scan - [facility] [address] [place] [address] Social History Tobacco Use Types Packs/Day Years [...] 8:00 PM EDT Nellie Bustamante RN * [place] Suicide Severity Rating Scale (Screener/Recent Self-Report) Question [...] PM EST Office Visit [facility] [address] [place] [address] Omari Potts DO 22 [place] [address] [email or web address] 01/31/2026 1:30 PM EDT Office Visit [facility] Neurology [address] [place] [address] Gabe Ramsey MD [address] [place] [address], [address]nd [place] [address] [email or web address] documented as of this encounter Visit Diagnoses Not on filedocumented in this encounter Care Teams Vamp Maker Relationship Specialty Start Date End Date Shanice Jones MD [address] [place] [address] PCP - General Family Medicine 07/17/25 documented as of this encounter Additional Source Comments The information contained in this document represents components of the legal health record. It is not the complete legal health record.[facility]
--- OUTSIDE RECORDS SUMMARY | 2025-09-15 18:16 | XMS_ITS | Encounter Summary ---
Author Organization [facility] Address [address] [place] [address] Phone Care Team Providers Care Hospitalist Physician Name Role Phone Shanice Jones MD Primary Care Provider + Shanice Jones MD Primary Care Provider + Encounter Details Date Type Department Care Team (Late st Contact Info) Description 04/01/2025 Procedure Pass [facility], [address] [address] Social History Tobacco Use Types Packs/Day Years [...] 3:20 PM EST Office Visit [facility] [address] [place] [address] Omari Potts DO 22 [place] [address] 01/31/2026 1:30 PM EDT Office Visit [facility] Neurology [address] [place] [address] Gabe Ramsey MD [address] [place] [address], 2nd [place] [address] documented as of this encounter Visit Diagnoses Not on filedocumented in this encounter Care Teams Hospitalist Physician Relationship Specialty Start Date End Date Shanice Jones MD PCP - General 10/18/21 07/16/25 Shanice Jones MD [address] [place] [address] PCP - General Family Medicine 07/17/25 documented as of this encounter Additional Source Comments The information contained in this document represents components of the legal health record. It is not the complete legal health record.[facility]
--- OUTSIDE RECORDS SUMMARY | 2025-09-15 18:16 | XMS_ITS | Encounter Summary ---
Author Organization [employer] Address [address] 7t [place] [address] Care Team Providers Care Director Of Student Life Name Role Phone Shanice Jones MD Primary Care Provider [phone] Sanaz Machuca Unavailable Encounter Details Date Type Department Care Team (Late st Contact Info) Description 05/05/2025 Orders Only [facility] [address] [place], [place] [phone] Wanda Ivory MD [address] [place], [place] [phone] Neck pain (Primary Dx) Social History Tobacco [...] PM EDT Narrative 06/30/2025 5:29 PM EDT [place] [address] XRay Report Signed Patient: Lindsey Wilson MR#: [id number] : 1965 Acct:[id number] Age/Sex: 60 / F ADM Date: 06/30/25 Loc: HO.CT Attending Dr: Nick Lofton MD Ordering Physician: Wanda Ivory MD Date of Service: 06/30/25 Procedure(s): XR cervical spine 4V Accession Number(s): [id number] cc: Shanice Jones; Wanda Ivory MD EXAMINATION: XR CERVICAL SPINE CLINICAL INFORMATION: [...] 06/30/25 1726 DD/ 1653 TD/TT: 06/30/25 1705 Director Of Quality: Procedure Note Donotuseinterpreter, Image - 06/30/2025 [place] [address] XRay Report Signed Patient: Lindsey Wilson MR#: [id number] : 1965Acct:[id number] Age/Sex: 60 / FADM Date: 06/30/25 Loc: HO.CT Attending Dr: Nick Lofton MD Ordering Physician: Wanda Ivory MD Date of Service: 06/30/25 Procedure(s): XR cervical spine 4V Accession Number(s): [id number] cc: Shanice Jones; Wanda Ivory MD EXAMINATION: XR CERVICAL SPINE CLINICAL INFORMATION: [...] 06/30/25 1726 DD/ 1653 TD/TT: 06/30/25 1705 Director Of Quality: us Wanda Ivory MD IMG XR PROCEDURES Final Result documented in this encounter Visit Diagnoses Diagnosis Neck pain- Primary Cervicalgia documented in this encounter Additional Health Concerns Assessment Noted Time PHQ-9 Depression Total Score: 6 03/26/20 4:46 PM EDT documented as of this encounter Care Teams Director Of Student Life Relationship Specialty Start Date End Date Shanice Jones MD [address] [place] [address] PCP - General Family Medicine 12/22/20 Sanaz Machuca 07/19/25 07/23/25 Cary Alonzo Surgical Aides TeacherDispatcher Service Chief 08/26/24 Himanshu Caring 12/26/24 09/05/25 Olamide Buitrago Surgical Aides TeacherDispatcher Service Chief 08/11/25 Morenita 08/26/25 documented as of this encounter
--- OUTSIDE RECORDS SUMMARY | 2025-09-15 18:16 | XMS_ITS | Encounter Summary ---
Author Organization [employer] Address [address] [facility] 7t [place] [address] Care Team Providers Care Telephone Operator Name Role Phone Shanice Jones MD Primary Care Provider [phone] Reason for Visit * Reason Onset Date Comments Durable Medical Equipment 09/01/2025 Encounter Details Date Type Department Care Team ([facility] st Contact Info) Description 09/01/2025 Telephone [facility] 230 [place], [place] [phone] Shanice Jones MD 230 [place], [place] [phone] Durable Medical Equipment Social History Tobacco Use Types Packs/Day Years [...] housing situation today? I have reggienicolas taylor 08/09/[address] you li ve. Do you have problems with any of the following? None of the above 08/09/2025 Food Insecurity Answer Date Recorded Within the past 12 months, y ou worried that your food would run out before you got money to buy more: Never True 08/09/2025 Within the past 12 months,th e food you bought just didn't last and you didn't have enough money to get more: Never True Transportation Answer Date Recorded In the past 12 months, has l ack of transportation kept you from medical appts, meetings, work or from getting things needed for daily living? No 08/09/2025 Utilities Answer Date Recorded In the past 12 months, has t he electric, gas, oil or water company threatened to shut off services in your home? No 08/09/2025 Depression Answer Date Recorded Patient Health Questionnaire-2 Score 2 03/26/2025 Internet Access Answer Date Recorded Internet Access Q1 Yes 08/09/2025 Internet Access Q2 Not on file 08/09/2025 Comments Unknown Sex and Gender Information Value Date Recorded Sex Assigned at Female 09/10/2022 10:21 AM EDT Legal Sex Female 10:21 AM EDT Gender Identity Female 09/10/2022 10:21 AM EDT Sexual Orientation Choose not to disclose 2021 10:21 AM EDT documented as of this encounter Miscellaneous Notes * Telephone Encounter - Jhony Rivers - 09/01/2025 4:36 PM EDT TC from Jacki with [facility] requesting Bed Rail documented in this encounter Plan of Treatment Not on file documented as of this encounter Visit Diagnoses Not on filedocumented in this encounter Additional Health Concerns Assessment Noted Time PHQ-9 Depression Total Score: 6 03/26/20 25 4:46 PM EDT documented as of this encounter Care Teams Telephone Operator Relationship Specialty Start Date End Date Shanice Jones MD [address] [place] [address] PCP - General Family Medicine 12/22/20 Cary Alonzo Sock DrierVehicle Check In Clerk 08/26/24 Himanshu Caring 12/26/24 09/05/25 Olamide Buitrago Sock DrierVehicle Check In Clerk 08/11/25 Ave[place] 08/26/25 documented as of this encounter
--- OUTSIDE RECORDS SUMMARY | 2025-09-15 18:16 | XMS_ITS | Encounter Summary ---
Author Organization [employer] Address [address] [facility] 7t [place] [address] Care Team Providers Care Manager Stone Name Role Phone Shanice Jones MD Primary Care Provider [phone] Sanaz Machuca Unavailable Encounter Details Date Type Department Care Team (Late st Contact Info) Description 07/11/2023 Abstract [facility] [address] [place], [place] [phone] Shanice Jones MD [address] [place], [place] [phone] Social History Tobacco Use Types Packs/Day Years [...] 09/16/2014 Recommended 10 year follow up ( [facility] us Historical Provider HEALTH MAINTENANCE Final Result documented in this encounter Visit Diagnoses Not on filedocumented in this encounter Care Teams Manager Stone Relationship Specialty Start Date End Date Shanice Jones MD [address] [place] [address] PCP - General Family Medicine 12/22/20 Sanaz Machuca 07/19/25 07/23/25 Cary Alonzo Cupola Melting SupervisorShredding Specialist 08/26/24 Himanshu [place] 12/26/24 09/05/25 Olamide Buitrago Cupola Melting SupervisorShredding Specialist 08/11/25 Morenita 08/26/25 documented as of this encounter
--- OUTSIDE RECORDS SUMMARY | 2025-09-15 18:16 | XMS_ITS | Encounter Summary ---
Author Organization [facility] Address [address] [place] [address] Phone Care Team Providers Care Doctor Assistant Name Role Phone Shanice Jones MD Primary Care Provider + Shanice Jones MD Primary Care Provider + Reason for Referral * MRI/CAT Scan - Closed Specialty Diagnoses / Procedures Referred By Contdea t Referred To Contact Radiology Diagnoses Elevated LFTs Procedures MRI Cholangiopancreatography (MRCP) Jaimee Coats CNP Phone: tel: fax: [email or web address] Referral ID Status Reason Start Date Expiration Date Visits Re quested Visits Authorized [id number] Closed 04/08/2025 04/08/2026 1 1 Encounter Details Date Type Department Care Team (Latest Contact Info) Description 04/01/2025 Transcribe Orders Virtual Department 30 [place] [address] Jaimee Coats CNP 10 [place], [place] [phone] [email or web address] Elevated LFTs (Primary Dx) Social History Tobacco [...] 3:20 PM EST Office Visit [facility] [address] Omari Potts DO [address] [place] [address] 01/31/2026 1:30 PM EDT Office Visit [facility] Neurology [address] [place] [address] Gabe Ramsey MD [address] [place] [address], 2nd [place] [address] documented as of this encounter Results * MRI CHOLANGIOPANCREATOGRAPHY (MRCP) WITH AND WITHOUT CONTRAST (04/25/2025 12:27 PM EDT) [facility] IMG QA ENGINEER COMMENT Follow-up abdominal MRI in 6 months, or as clinically appropriate. [facility] Anatomical Region Laterality Modality Pancreas, Biliary Magnetic [...] initiated on 05/03/2025 9:02 AM, Message ID [id number]. Narrative 05/03/2025 9:03 AM EDT MRI CHOLANGIOPANCREATOGRAPHY [...] was initiated on 05/03/2025 9:02 AM,Message ID [id number]. Jaimee Coats INFORMATION SYSTEMS ADMINISTRATOR IMG MR ABDOMEN Final Resu lt documented in this encounter Visit Diagnoses Diagnosis Elevated LFTs- Primary Other abnormal blood chemistry Elevated LFTs Other abnormal blood chemistry documented in this encounter Care Teams Doctor Assistant Relationship Specialty Start Date End Date Shanice Jones MD PCP - General 10/18/21 07/16/25 Shanice Jones MD [address] [place] [address] PCP - General Family Medicine 07/17/25 documented as of this encounter Additional Source Comments The information contained in this document represents components of the legal health record. It is not the complete legal health record.[facility]
--- OUTSIDE RECORDS SUMMARY | 2025-09-15 18:16 | XMS_ITS | Encounter Summary ---
Author Organization [employer] Address [address] [facility] 7t [place] [address] Care Team Providers Care Senior Drafter Name Role Phone Shanice Jones MD Primary Care Provider Sanaz Machuca Unavailable Encounter Details Date Type Department Care Team (Latest Contact Info) Description 12/05/2018 Abstract [facility] CONVERSIONS Dental, Provider, DDS Social History [...] filedocumented in this encounter Care Teams Senior Drafter Relationship Specialty Start Date End Date Shanice Jones MD [address] [place] [address] PCP - General Family Medicine 12/22/20 Sanaz Machuca 07/19/25 07/23/25 Cary Alonzo Runner ManOffal Baler 08/26/24 Jgara Caring 12/26/24 09/05/25 Olamide Buitrago Runner ManOffal Baler 08/11/25 Morenita 08/26/25 documented as of this encounter
--- OUTSIDE RECORDS SUMMARY | 2025-09-15 18:16 | XMS_ITS | Encounter Summary ---
Author Organization [facility] Address [address] [place] [address] Phone Care Team Providers Care Battery Container Finishing Hand Name Role Phone Raad Lucas NP, Renetta Primary Care Provider Malaika Augustin MD Primary Care Provider [phone] Shanice Jones MD Primary Care Provider + Shanice Jones MD Primary Care Provider + Encounter Details Date Type Department Care Team (Latest Contact Info) Description 02/24/2021 Ancillary Orders [facility] [address] [place] [address] Ernie Portillo, DO [address] [place] [address] Chest pain, cardiac Social History Tobacco Use [...] PM EST Office Visit [facility] [address] [place] [address] Omari Potts DO [address] [place] [address] 01/31/2026 1:30 PM EDT Office [facility] Neu[facility] [address] [place] [address] [place] [address] Gabe Ramsey MD 22 [facility], 2nd [place] [address] [email or web address] documented as of this encounter Results * [...] atrial complexes No significant arrhythmias noted Result [facility] Ernieroxane Kumarjose OBRIEN CV CARDIAC SERVICES ORDERABLE S Final Result documented in this encounter Visit Diagnoses Diagnosis Chest pain, cardiac Chest pain, cardiac documented in this encounter Additional Health Concerns Infection Onset Date Last Indicated Resolved Time CoV-Risk 02/20/2022 02/20/2022 03/03/2022 1:24 AM EDT CoV-Risk 06/05/2024 06/05/2024 06/16/2024 1:22 AM EDT documented as of this encounter Care Teams Battery Container Finishing Hand Relationship Specialty Start Date End Date Renetta Shankar NP PCP - General 07/08/20 06/04/21 Malaika Moeller MD 15 [facility] [place]. [address] [place] [address] [email or web address] PCP - General Family Medicine 06/05/21 10/17/21 Shanice Jones MD [address] [address] PCP - General 10/18/21 07/16/25 Shanice Jones MD [address] [place] [address] PCP - General Family Medicine 07/17/25 documented as of this encounter Additional Source Comments The information contained in this document represents components of the legal health record. It is not the complete legal health record.[facility]
--- OUTSIDE RECORDS SUMMARY | 2025-09-15 18:16 | XMS_ITS | Encounter Summary ---
Author Organization [facility] Address [address] [place] [address] Phone Care Team Providers Care Mining And Quarrying Machinery Repairer Name Role Phone Raad Lucas NP, Renetta Primary Care Provider Malaika Augustin MD Primary Care Provider [phone] Shanice Jones MD Primary Care Provider + Shanice Jones MD Primary Care Provider + Encounter Details Date Type Department Care Team (Late st Contact Info) Description 02/24/[address] [facility] [address] [place] [address] [place] [address] Social History Tobacco Use Types Packs/Day Years [...] 3:20 PM EST Office Visit [facility] [address] [place] [address] [place] [address] Omari Potts DO [address] [place] [address] 01/31/2026 1:30 PM EDT Office Visit [facility] Neurology 22 [place] [address] Gabe Ramsey MD 22 [facility], 2nd [place] [address] [email or web address] documented as of this encounter Visit Diagnoses Not on filedocumented in this encounter Additional Health Concerns Infection Onset Date Last Indicated Resolved Time CoV-Risk 02/20/2022 02/20/2022 03/03/2022 1:2 4 AM EDT CoV-Risk 06/05/2024 06/05/2024 06/16/2024 1:22 AM EDT documented as of this encounter Care Teams Mining And Quarrying Machinery Repairer Relationship Specialty Start Date End Date Renetta Shankar V TELEPHONE MECHANIC PCP - General 07/08/20 06/04/21 Malaika Moeller MD [address] [address] PCP - General Family Medicine 06/05/21 10/17/21 Shanice Jones MD [address] [place] [address] PCP - General 10/18/21 07/16/25 Shanice Jones MD [address] [place] [address] PCP - General Family Medicine 07/17/25 documented as of this encounter Additional Source Comments The information contained in this document represents components of the legal health record. It is not the complete legal health record.[facility]
--- OUTSIDE RECORDS SUMMARY | 2025-09-15 18:16 | XMS_ITS | Encounter Summary ---
Author Organization [facility] Address [address] [place] [address] Phone Care Team Providers Care Airdox Fitter Name Role Phone Shanice Jones MD Primary Care Provider + Shanice Jones MD Primary Care Provider + Encounter Details Date Type Department Care Team (Late st Contact Info) Description 11/10/2024 Procedure Pass [facility], Ct Scan - [facility] [address] [place] [address] Social History Tobacco Use Types Packs/Day Years [...] 11/12/2024 8:31 AM Gabi Ochoa RN * [place] Suicide Severity Rating Scale (Screener/Recent Self-Report) Question [...] PM EST Office Visit [facility] [address] [place] [address] [place] [address] Omari Potts DO [address] [place] [address] 01/31/2026 1:30 PM EDT Office Visit [facility] Neurology [address] [place] [address] Gabe Ramsey MD [address] [place] [address], 2nd [place] [address] documented as of this encounter Visit Diagnoses Not on filedocumented in this encounter Care Teams Airdox Fitter Relationship Specialty Start Date End Date Shanice Jones MD PCP - General 10/18/21 07/16/25 Shanice Jones MD [address] [place] [address] PCP - General Family Medicine 07/17/25 documented as of this encounter Additional Source Comments The information contained in this document represents components of the legal health record. It is not the complete legal health record.[facility]
--- OUTSIDE RECORDS SUMMARY | 2025-09-15 18:16 | XMS_ITS | Clinical Summary ---
Author Organization [employer] Address [address] [facility] [address] [place] [address] Care Team Providers Care Supervisor Paint Department Name Role Phone Shanice Jones MD Primary Care Provider [phone] Allergies Active Allergy Reactions Criticality Noted Date Comments Egg Protein (Egg White) Rash Low 07/26/2020 Latex Rash Low 12/05/2018 [...] DAILY RINSE MOUTH AFTER USING. 023 Active escitalopram (Lexapro) 20 MG tablet TAKE 2 TABLETS BY MOUTH ONCE DAILY IN THE MORNING 023 Active glucose blood (FREESTYLE LITE) test strip every 8 (eight) hours. 022 Active insulin aspart (NovoLOG) 100 UNIT/ML pen Inject 5 Units under the skin before breakfast, before lunch, and before evening meal. 021 Active Lantus SoloStar 100 UNIT/ML pen Inject [...] differently:1 mg Oral2 times daily, Reported on 08/09/2025 pantoprazole (ProtoNix) 40 MG EC tablet TAKE 1 TABLET BY MOUTH TWICE DAILY IN THE MORNING AND IN THE EVENING 180 tablet 3 Active fremanezumab (Ajovy) 225 MG/1.5ML auto-injector Inject 675 mg under the skin every 3 (three) months. Active Easy Touch Pen Beebe 31G X 6 MM miscIndications :Type 2 diabetes mellitus treated with insulin (HCC) USE FOUR TIMES DAILY DIRECTED 100 each [...] MORNING AND EVENING 360 tablet 3 Active cholecalciferol (Vitamin D-3) 25 MCG tabletIndicatio ns:Vitamin D deficiency TAKE 1 TABLET BY MOUTH EVERY MORNING 90 tablet 3 025 Active Ferrous Sulfate (iron) 325 (65 Fe) MG tablet TAKE 1 TABLET BY MOUTH EVERY MORNING 90 tablet 1 025 Active levothyroxine (Synthroid, Levoxyl) 50 MCG tablet TAKE 1 TABLET BY MOUTH EVERY MORNING 30-60 MINUTES BEFORE MEALS OR FOOD 90 tablet 3 Active docusate sodium (Colace) 100 MG capsule Take 1 capsule (100 mg) by mouth Once per day. 90 capsule 3 025 2025 Active QUEtiapine (SEROquel) 25 MG tablet TAKE 1 TABLET BY MOUTH AT BEDTIME NEEDED FOR SLEEP 30 tablet 11 Active sucralfate (Carafate) 1 g tablet TAKE 1 TABLET BY MOUTH EVERY TWELVE HOURS NEEDED FOR HEARTBURN 60 tablet 3 025 Active nystatin (Mycostatin) creamIndication s:Rash Apply topically 2 times daily. 30 g 3 025 2025 Active triamcinolone (Kenalog) 0.1 % creamIndication s:Rash Apply topically if needed in the morning and at bedtime for rash. 45 g 2 025 Active thiamine (Vitamin B-1) 50 MG tablet TAKE 1 TABLET BY MOUTH EVERY MORNING 90 tablet 3 025 Active senna (Senokot) 8.6 MG tablet TAKE 1 TABLET BY MOUTH TWICE DAILY IN THE MORNING AND AT BEDTIME NEEDED FOR CONSTIPATION 180 tablet 1 025 Active polyethylene glycol, PEG, 3350 (MiraLax) 17 GM/SCOOP powderIndicatio ns:Slow transit constipation Take 17 g by mouth if needed each day (constiaption, do not exceed two doses weekly,). 527 g 1 025 Active Aspirin Low Dose 81 MG EC tablet Take 1 tablet (81 mg) by mouth in the morning. 30 tablet 2 025 Active pregabalin (Lyrica) 200 MG capsule Take 1 capsule (200 mg) by mouth Once per day. 90 capsule 3 025 Active lidocaine (Xylocaine) 5 % ointment APPLY TOPICALLY TO THE AFFECTED AREA(S) THREE TIMES DAILY IN THE MORNING, AT NOON, AND AT BEDTIME NEEDED FOR PAIN OF NECK 35.44 g 3 025 Active Aspirin Low Dose 81 MG EC tablet Take 81 mg by mouth in the morning. 023 2024 Discontinued(R eorder (will not trigger notification to Pharmacy)) pregabalin (Lyrica) 200 MG capsule Take 1 capsule (200 mg) by mouth Once per day. 90 capsule 3 02/09/ 025 2024 Discontinued(R eorder (will not trigger notification to Pharmacy)) lidocaine (Xylocaine) 5 % ointment Apply topically if needed in the morning, at noon, and at bedtime (neck pain). 30 g 3 025 2024 Discontinued Hospital, Clinic, or Other Facility Administered Medication Ordered Dose Route Frequency Start Date End Date Status lidocaine (Xylocaine) 2 % injection 60 mgIndications:Cervicalgia 60 mg IJ Once 06/07/2025 Active Active Problems Problem Noted Date Diagnosed Date Closed fracture of distal en d of right fibula with routine healing 08/09/2025 Assessment & Plan (08/09/2025 5:07 PM EDT): Orders: Referral to Orthopaedic Surgery; Future Chronic left shoulder pain 08/09/2025 Assessment & Plan (08/09/2025 5:07 PM EDT): Orders: Referral to Orthopaedic Surgery; Future Acute thoracic back pain 08/09/2025 Assessment & Plan (08/09/2025 5:07 PM EDT): Orders: Referral to General Surgery; Future Frequent falls 03/31/2025 Assessment & Plan (08/09/2025 5:07 PM EDT): Fibromyalgia 01/21/2025 Cervicalgia 01/21/2025 Assessment & Plan [...] 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 Will extend PT-1 to her other providers Depression, unspecified 12/21/2024 Anxiety disorder 12/21/2024 Portal hypertensive gastropathy (CMS/HCC) (CMS/H CC) 10/12/2024 Fatty liver 10/12/2024 Overview (10/12/2024): 1. Normal [...] artery provides dominant supply to the right FLAT BREAKDOWN PROCESSOR.Nondominant right vertebral artery is diminutive throughout, not [...] Pt has had difficult maintaining appointments at [facility] wiwt Dr Song, would like to come close to where she lives at [facility] Exercise counseling 02/13/2023 Left ankle sprain 11/20/2022 Assessment & Plan (02/13/2023 3:37 PM EDT): Continue followup with ortho and PT at [facility] Did gait training at PT as she says it is difficult to walk, even with a walker and complains of frequent falls Awaiting sabrina , which translates from Romansh to braces Assessment & Plan (11/20/2022 10:28 AM EST): Continue followup with ortho and PT at [facility] Request gait training at PT as she says it is difficult to walk, even with a walker and complains of frequent falls Malignant neoplasm of endometrium (CMS/HCC) 07/2023 Assessment & Plan (09/04/2024 12:53 PM EDT): No AUB currently Assessment & Plan (11/20/2022 10:25 AM EST): She is worried about reoccurance of neoplasm Will check CBC Ensure 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 Essential hypertension 12/05/2015 Assessment & Plan (02/11/2023 [...] view, she had her aneurysm stented at [facility] 05/2024. If she can discontinue Plavix per [...] Plan (02/13/2023 3:40 PM EDT): Discussed that [facility] published guidelines about coverage specifically state that there is no coverage for liposuction Recommend consultation with bariatric surgeon about weight loss, with her concerns about gastroparesis and the operation, she declines this referral for now Severe recurrent major depression (CMS/HCC) 11/12 Assessment & Plan (06/01/2024 11:02 AM EDT): Seen at [facility], last [facility] psychiatrist 05/21/2024 -Denies [...] connected to a therapist and psychiatrist at [facility]. She meets with her therapist (Domi Palma) on Wednesdays at 10 am and every three months with psychiatrist (Dr. Perales). Son reports main concern is patient does not use her walker and has fallen multiple times. This has led to the numerous ED visits. At this time Lindsey Brianna Rolly meets criteria for Visit Diagnoses: Problem List [...] Encounters Date Type Department Care Team Description 09/09/2025 Telephone [facility] [address] [place] [phone] Shanice Jones MD chart prep 09/08/[address] [address] Shanice Jones MD FYI 09/01/[address] [address] Shanice Jones MD Durable Medical Equipment 08/29/2025 Refill [facility] [address] [place] [phone] Shanice Jones MD 08/26/[address] [address] Shanice Jones MD Durable Medical Equipment (DME Request: Bedside Commode) 08/26/2025 Telephone [facility] [address] [place] [phone] Shanice Jones MD Verbal Order; Referral-Ortho 08/20/2025 Refill [facility] [address] [place] [phone] Shanice Jones MD 08/18/2025 Telephone [facility] [address] [place] [phone] Shanice Jones MD Call Back Request 08/11/2025 Telephone [facility] [address] [place] [address] Shanice Jones MD Care Coordination (ICP Care Plan) 08/09/2025 9:45 AM EDT Office Visit [address] [address] Anupama Brooks NP Other closed fracture of distal end of right fibula with routine healing, subsequent encounter (Primary Dx); Frequent falls; Gastroparesis; Type 2 diabetes mellitus with hyperglycemia, with long-term current use of insulin ([facility]); Slow transit constipation; Chronic left shoulder pain; Acute thoracic back pain, unspecified back pain laterality 08/09/[address] [address] Anupama Brooks NP Physical Therapy and VNA 08/09/2025 Travel 08/09/[address] [address] Shanice Jones MD HDF appt 08/09/[address] [address] Shanice Jones MD Chart Prep 08/09/[address] [address] Shanice Jones MD 07/26/[address] [address] Shanice Jones MD HDF appointment 07/23/2025 Patient Outreach [facility] [address] [place] [address] Shanice Jones MD 07/23/2025 Patient Outreach [facility] [address] [place] [address] Shanice Jones MD Care Coordination (CP Care Coordination Chart Review) 07/22/2025 Patient Outreach [address] [address] Shanice Jones MD Transition Of Care (Tcm) (Hdf unscheduled) 07/20/[address] [address] Shanice Jones MD FYI 07/19/2025 Patient Outreach [address] [address] Shanice Jones MD 07/09/2025 Telephone [facility] [address] [place] [address] Shanice Jones MD fyi 07/01/2025 Telephone [facility] [address] [place] [address] Shanice Jones MD Referral 06/30/2025 Results Follow-Up [facility] [address] [place] [address] Wanda Ivory MD XR CERVICAL SPINE 4V 06/30/2025 Orders Only [facility] External Provider, [facility] from Last 3 Months Immunizations Immunization Administration [...] housing situation today? I have reggie taylor 08/09/[address] you [...] Sign Reading Time Taken Comments Blood Pressure 122/60 08/09/2025 9:22 AM EDT Pulse 88 08/09/2025 9:22 AM EDT Temperature 36.9 C (98.4 F) 08/09/2025 9:22 AM EDT Respiratory Rate 19 08/09/2025 9:22 AM EDT Oxygen Saturation 99% 03/30/2025 11:38 AM EDT Inhaled Oxygen Concentration - - Weight 73.9 kg (163 lb) 08/09/2025 9:22 AM EDT Height 160 cm (5' 3 ) 08/09/2025 9:22 AM EDT Body Mass Index 28.87 08/09/2025 9:22 AM EDT Plan of Treatment Health Maintenance Due Date Last Done Comments CT Colonography 1965 FIT DNA/Cologuard 1965 FOBT 1965 Sigmoidoscopy 1965 Diabetes: Foot Exam 1975 Eye Exam 1975 Alcohol/Substance Use Screening 1977 Hepatitis A Vaccines (1 of 2 - Risk 2-dose series) 1984 RSV Patients and Patients Aged 60 years or older (1 - Risk 60-74 years 1-dose series) 2025 Diabetes: Urine Protein Screening 06/05/2025 06/05/2024, 10/28/2023, 10/10/2022, Additional history exists Lipid Panel 06/05/2025 06/05/2024, 01/09, 01/02/2023, Additional history exists Mammogram 06/10/2025 06/10/2024, 05/13, 07/04/2020, Additional history exists COVID-19 Vaccine ( season) 2025 12/01/2021, 01/25/2021 FIT 07/28/2025 07/28/2024 Diabetes: Hemoglobin A1C 02/06/2026 025, 08/09/2025, 07/18/2025, Additional history exists Depression Screening 03/26/2026 03/26/2025, 03/26/20 25 Disability Screening 08/09/2026 08/09/2025 SDOH Screening 08/09/2026 08/09/2025 Tobacco Screening 08/09/2026 08/09/2025 DTaP/Tdap/Td Vaccines (3 - Td or Tdap) 12/25/2031 12/25/2021, 08/02/2010 Colonoscopy 10/07/2034 10/07/2024, 09/16/2014 Colorectal Cancer Screening 10/07/2034 Cervical Cancer Screening Discontinued HPV/Cotest Discontinued 10/24/2018 Pap Smear Discontinued 10/24/2018 Zoster Vaccines Completed 12/25/2021, 10/18/2020 Pneumococcal Vaccine: 50+ Years Completed 07/26/2023, 12/17/2016 HIV Screening Completed 06/05/2024 Hepatitis C Screening Completed 06/05/2024 Influenza Vaccine Completed 07/21/2025, , 10/02/2021, Additional history exists Hepatitis B Vaccines Completed 08/09/2025, 12/01/2024, 05/10/2015, Additional history exists HIB Vaccines Aged Out [...] Name Priority Date/Time Associated Diagnosis Comments POCT GLYCATED HEMOGLOBIN, TOTAL Routine 08/09/2025 9:33 AM EDT Type 2 diabetes mellitus with hyperglycemia, with long-term current use of insulin (CMS/HCC) POCT GLUCOSE Routine 08/09/2025 9:31 AM EDT Type 2 diabetes mellitus with hyperglycemia, with long-term current use of insulin (CMS/HCC) XR CERVICAL SPINE 4V Routine 06/30/2025 4:53 PM EDT Neck pain CT CHEST WO CONTRAST Routine 06/30/2025 4:39 PM EDT HM COLONOSCOPY Routine 10/07/2024 10:40 [...] hyperglycemia, with long-term current use of insulin ([facility]) LIPID PANEL, STANDARD Routine 06/05/2024 11:45 AM EDT Type 2 diabetes mellitus with hyperglycemia, with long-term current use of insulin ([facility]) HM PAP/HPV Routine 10/24/2018 from Last 3 Months or Most Recently Relevant to Health Maintenance Results * POCT Hgb A1c (08/09/2025 9:33 AM EDT) Hemoglobin A1C 5.6 4.0 - 5.7 % QC Media Lot # [id number] Lot# Expiration Date , Blood 08/09/2025 9:33 AM EDT Betty Ch DO POINT OF CARE TEST ENTER/CLEO T ORDERABLES Final Result * POCT Glucose (08/09/2025 9:31 AM EDT) Glucose Blood, POC 146 60 - 200 mg/dL QC Media Lot # [id number] Lot# Expiration Date ,406,166 Blood Capillary blood specimen / Unknown 08/09/2025 9:31 AM EDT Betty Ch DO POINT OF CARE TEST ENTER/CLEO T ORDERABLES Final Result * XR CERVICAL SPINE 4V (06/30/2025 4:53 PM EDT) Anatomical Region Laterality Modality Abdomen Radiographic Haylie ging 06/30/2025 4:53 PM EDT Narrative 06/30/2025 5:29 PM EDT [address] [address] XRay Report Signed Patient: Lindsey Wilson MR#: [id number] : 1965 Acct:[id number] Age/Sex: 60 / F ADM Date: 06/30/25 Loc: HO.CT Attending Dr: Nick Lofton MD Ordering Physician: Wanda Ivory MD Date of Service: 06/30/25 Procedure(s): XR cervical spine 4V Accession Number(s): [id number] cc: Prachi Jones Nao MD EXAMINATION: XR [...] 06/30/25 1726 DD/ 1653 TD/TT: 06/30/25 1705 Radiology Director: Procedure Note Donotuseinterpreter, Image - 06/30/2025 [place] [address] XRay Report Signed Patient: Lindsey Wilson MR#: [id number] : 1965Acct:[id number] Age/Sex: 60 / FADM Date: 06/30/25 Loc: HO.CT Attending Dr: Nick Lofton MD Ordering Physician: Wanda Ivory MD Date of Service: 06/30/25 Procedure(s): XR cervical spine 4V Accession Number(s): [id number] cc: Prachi Jones Nao MD EXAMINATION: XR [...] Nic Shaw MD 06/30/2025 05:26 PM EDT Dictated By: Nic Shaw MD Signed By: <Electronically signed by Nic Shaw MD in OV> 06/30/25 1726 DD/ 1653 TD/TT: 06/30/25 1705 Radiology Director: us Wanda Ivory MD IMG XR PROCEDURES Final Result * CT Chest w/o Contrast (06/30/2025 4:39 PM EDT) Anatomical Region Laterality Modality Body, Chest Computed Tomogra phy 06/30/2025 4:39 PM EDT Narrative 06/30/2025 5:23 PM EDT [place] [address] CT Scan Report Signed Patient: Lindsey Wilson MR#: [id number] : 1965 Acct:[id number] Age/Sex: 60 / F ADM Date: 06/30/25 Loc: HO.CT Attending Dr: Nick Lofton MD Ordering Physician: Nick Lofton MD Date of Service: 06/30/25 Procedure(s): CT chest wo IV con Accession Number(s): [id number] cc: Shanice Jones; Nick Lofton MD Report Number: [id number]: Total DLP = 235.00 mGy-cm EXAMINATION: CT [...] 06/30/25 1719 DD/ 1639 TD/TT: 06/30/25 1657 Radiology Director: Procedure Note Donotuseinterpreter, Image - 06/30/[address] [place] [address] [address] Scan Report Signed Patient: Lindsey Wilson MR#: [id number] : 1965Acct:[id number] Age/Sex: 60 / FADM Date: 06/30/25 Loc: HO.CT Attending Dr: Nick Lofton MD Ordering Physician: Nick Lofton MD Date of Service: 06/30/25 Procedure(s): CT chest wo IV con Accession Number(s): [id number] cc: Shanice Jones; Nick Lofton MD Report Number: [id number]: Total DLP = 235.00 mGy-cm EXAMINATION: CT [...] 06/30/25 1719 DD/ 1639 TD/TT: 06/30/25 1657 Radiology Director: [facility] External Provider IMG CT PROCEDURES Final Result * Hm Colonoscopy (10/07/2024 10:40 AM EST) Colonoscopy Normal Normal Narrative Idalmis Huber - 10/07/2024 10:40 AM EST Recommended 10 years . see results scanned in culture media laboratory assistant on 10/07/2024 Historical Provider [facility] MAIN[facility]NA[facility] Edited Result - Final * BI Mammogram Screening Tomosynthesis Bilateral (06/10/2024 3:25 PM EDT) Anatomical Region Laterality Modality Breast Bilateral Mammography 06/10/2024 3:25 PM EDT Narrative 06/17/2024 11:18 AM EDT [address] [place] [address] Mammography Report Signed Patient: Lindsey Wilson MR#: [id number] : 1965 Acct:[id number] Age/Sex: 59 / F ADM Date: 06/10/24 Loc: HO.MAMMO Attending Dr: Shanice Jones MD Ordering Physician: Shanice Jones Results: 1Negative Date of Service: 06/10/24 Follow Up: 1 Year From Orig inal Mammogram Procedure(s): MM tomosynthesis screening BI Accession Number(s): [id number] cc: Shanice Jones EXAMINATION: MM SCREENING DIGITAL [...] in OV> 06/17/24 1114 DD/ 1525 TD/TT: Radiology Director: Procedure Note Donotuseinterpreter, Image - 06/17/[address] [place] [address] Mammography Report Signed Patient: Lindsey Wilson MR#: [id number] : 1965Acct:[id number] Age/Sex: 59 / FADM Date: 06/10/24 Loc: TATI.MAMMO Attending Dr: Shanice Jones MD Ordering Physician: Felix Jonesults: 1Negative Date of Service: 06/10/24Follow Up: 1 Year From Orig ina Mammogram Procedure(s): MM tomosynthesis screening BI Accession Number(s): [id number] cc: Shanice Jones EXAMINATION: MM SCREENING DIGITAL [...] in OV> 06/17/24 1114 DD/ 1525 TD/TT: Radiology Director: Shanice Jones MD IMG BI PROCEDURES Final Result * Albumin, Random Urine W/Creatinine (06/05/2024 11:45 AM EDT) Creatinine, Urine 148.96 mg/dL [facility] Microalbumin Urine 12.0 mg/L [facility] Microalbum Creatinine Ratio Ur 8.0 <30 ug/mg cr [facility] Comment:Albumin/Creatinine R atio Reference Ranges: Normal: < 30 ug/mg creatinine Microalbuminuria: 30 - 300 ug/mg creatinineClinical Albuminuria: > 300 ug/mg creatinine Urine (Urine, Random) 06/05/2024 11:45 AM EDT 06/05/2024 12:51 PM EDT us Shanice Jones MD LAB URINE ORDERABLES Final Res ult Performing Organization Address [facility]/ZIP Co de Phone Number [facility] [address] [place] [address] [phone] * Hepatitis C Antibody with Reflex to HCV, RNA, Quantitative, Real-Time PCR (06/05/2024 11:45 AM EDT) Hepatitis C Antibody Nonreactive Nonreactive [facility] Comment:Antibodies to HCV no t detected; does not exclude early acuteHCV infection. Blood Venous blood specimen / Unknown 06/05/2024 11:45 AM EDT 06/05/2024 1:04 PM EDT us Gissel Machuca MD LAB BLOOD ORDERAB LES Final Result Performing Organization Address [facility]/ZIP Co de Phone Number [facility] [address] [place] [address] [phone] * HIV-1/2 Antigen and Antibodies, Fourth Generation, with Reflexes (06/05/2024 11:45 AM EDT) HIV AB/AG Nonreactive Nonreactive [facility] Comment:HIV-1 p24 Ag and/or HIV-1/HIV-2 Ab not detected.A test result that is nonreactive does not exclude thepossibility of exposure to or infection with HIV-1 and/orHIV-2. Nonreactive results in this assay for individualswith prior exposure to HIV-1 and/or HIV-2 may be due toantigen and antibody levels that are below the limit ofdetection of this assay.The [employer].laniOxsensis HIV Ag/Ab Combo assay result andsupplemental assay results should be interpreted inconjunction with the patient's clinical presentation,history and other laboratory results. If the results areinconsistent with clinical evidence, additional testing issuggested to confirm the result. Blood Venous blood specimen / Unknown 06/05/2024 11:45 AM EDT 06/05/2024 1:04 PM EDT us Gissel Machuca MD LAB BLOOD ORDERAB LES Final Result Performing Organization Address [facility]/ZIP Co de Phone Number [facility] [address] [place] [address] [phone] * (ABNORMAL) Lipid Panel, Standard (06/05/2024 11:45 AM EDT) Triglycerides 132 <150 mg/dL [facility] Comment:Desirable Triglyceri de: less than 150 mg/dLBorderline High Triglyceride 150-199 mg/dLHigh Triglyceride: 200-499 mg/dLVery High Triglyceride: greater than or equal to 5OO mg/dL Cholesterol 110 <200 mg/dL [facility] Comment:Desirable Cholestero l: less than 200 mg/dLBorderline High Cholesterol: 200-239 mg/dLHigh Cholesterol: greater than 239 mg/dL LDL Cholesterol Calculated 47 <100 mg/dL [facility] Comment:Desirable LDL: less than 100 mg/dLNear Optimal/Above Optimal LDL: 110- 129 mg/dLBorderline High LDL: 130-159 mg/dLHigh LDL: 160-189 mg/dLVery High LDL: greater than or equal to 190 mg/dL HDL Cholesterol 37(L) >40 mg/dL [facility] Comment:Desirable HDL: great er than 40 mg/dL Note: This HDL assay may give artificially low results in patients with liver disease. Blood Venous blood specimen / Unknown 06/05/2024 11:45 AM EDT 06/05/2024 1:04 PM EDT us Shanice Jones MD LAB BLOOD ORDERABLES Final Res ult Performing Organization Address City/[facility]/ZIP Co de Phone Number [facility] [address] [place] [address] [phone] * HM PAP/HPV (10/24/2018) Pap Smear 1. NILM 1. NILM HPV Not Detected Undetected, Indeterminat e, Quantitative , Not Detected us Historical Provider HEALTH MAINTENANCE Final Result from Last 3 Months or Most Recently Relevant to Health Maintenance Insurance [employer] Care Teams Supervisor Paint Department Relationship Specialty Start Date End Date Shanice Jones MD [address] [place] [phone] PCP - General Family Medicine 12/22/20 Cary Alonzo Hyperbaric NurseManager Marketing Communication 08/26/24 Olamide Buitrago Hyperbaric NurseManager Marketing Communication 08/11/25 Morenita 08/26/25
--- OUTSIDE RECORDS SUMMARY | 2025-09-15 18:16 | XMS_ITS | Encounter Summary ---
Author Organization [employer] Address [address] [address] [address] [address] [place] [address] Care Team Providers Care Panel Saw Operator Name Role Phone Shanice Jones MD Primary Care Provider [phone] Sanaz Machuca Unavailable Encounter Details Date Type Department Care Team (Late st Contact Info) Description 03/23/2025 Orders Only [facility] [address] [place] [address] Provider, MD Maurisio Social History Tobacco Use [...] Author Several days 03/26/2025 4:46 PM EDT Shaince Jones MD * Thoughts that you would [...] PM EDT Narrative 03/30/2025 1:37 PM EDT [address] [address] XRay Report Signed Patient: Lindsey Wilson MR#: [id number] : 1965 Acct:[id number] Age/Sex: 59 / F ADM Date: 03/30/25 Loc: HO.HHCX Attending Dr: Shanice Jones MD Ordering Physician: Shanice Jones Date of Service: 03/30/25 Procedure(s): XR cervical spine 3V Accession Number(s): [id number] cc: Shanice Jones EXAMINATION: XR CERVICAL SPINE [...] 03/30/25 1334 DD/ 1209 TD/TT: 03/30/25 1258 Preventive Maintenance Coordinator: Procedure Note Donotuseinterpreter, Image - 03/30/2025 [place] [address] XRay Report Signed Patient: Lindsey Wilson MR#: [id number] : 1965Acct:[id number] Age/Sex: 59 / FADM Date: 03/30/25 Loc: HO.HHCX Attending Dr: Shanice Jones MD Ordering Physician: Shanice Jones Date of Service: 03/30/25 Procedure(s): XR cervical spine 3V Accession Number(s): [id number] cc: Shanice Jones EXAMINATION: XR CERVICAL SPINE [...] 03/30/25 1334 DD/ 1209 TD/TT: 03/30/25 1258 Preventive Maintenance Coordinator: Shanice Jones MD IMG XR PROCEDURES Final Result * Hm Colonoscopy (10/07/2024 10:40 AM EST) Colonoscopy Normal Normal Narrative Idalmis Huber - 10/07/2024 10:40 AM EST Recommended 10 years . see results scanned in adult remedial education instructor on 10/07/2024 us Historical Provider HEALTH MAINTENANCE Edited Result - Final documented in this encounter Visit Diagnoses Not on filedocumented in this encounter Care Teams Panel Saw Operator Relationship Specialty Start Date End Date Shanice Jones MD [address] [place] [address] PCP - General Family Medicine 12/22/20 Sanaz Machuca 07/19/25 07/23/25 Cary Alonzo Finish Rolls OperatorContact Officer 08/26/24 Himanshu Hayes 12/26/24 09/05/25 Olamide Buitrago Finish Rolls OperatorContact Officer 08/11/25 Morenita 08/26/25 documented as of this encounter
--- OUTSIDE RECORDS SUMMARY | 2025-09-15 18:16 | XMS_ITS | Encounter Summary ---
Author Organization [facility] Address [address] [place] [address] Phone Care Team Providers Care Berry Grower Name Role Phone Shanice Jones MD Primary Care Provider + Encounter Details Date Type Department Care Team (Latest Contact Info) Description 08/10/2025 Transcribe Orders Virtual Department [address] [place] [address] Jaimee Coats, PAINTER [address] [place] [address] [email or web address] Hepatic cirrhosis, unspecified hepatic cirrhosis type, unspecified whether ascites present (Primary Dx); Liver lesion Social History Tobacco Use Types Packs/Day Years [...] housing situation today? I have reggie taylor 07/17/2025 How many times have you move [...] 3:20 PM EST Office Visit [facility] [address] [place] [address] [place] [address] Omari Potts DO 22 [place] [address] 01/31/2026 1:30 PM EDT Office Visit [facility] Neurology [address] [place] [address] Gabe Ramsey MD 22 [facility], 2nd [place] [address] [email or web address] documented as of this encounter Results * US LIVER WITH ELASTOGRAPHY (08/19/2025 10:57 AM EDT) Anatomical Region Laterality Modality Abdomen Ultrasound 08/19/2025 12:0 2 PM EDT Impressions 08/19/2025 12:06 PM EDT Heterogeneity of the hepatic echotexture mild nodularity of the hepatic capsule with clinical history of cirrhosis. No focal hepatic lesion demonstrated sonographically. Increased echogenicity of the hepatic parenchyma Median Young's modulus of 7.74 kPa consistent with Metavir (F0/F1) Normal liver evaluation to mild fibrosis. No evidence of significant hepatic fibrosis per median Young's modulus. The normal Young's modulus reported in the literature is below 8.29 kPa. Shear-wave Elastography threshold values: Normal Young's modulus reported in literature: 8.29 kPa ELAS Narrative 08/19/2025 12:06 PM EDT US LIVER WITH ELASTOGRAPHY Referring clinician's provided indication for this examination in Epic: Outside Radiology Order; cirrhosis US Indications: Outside Radiology Order; cirrhosis. Comparison: MRI CHOLANGIOPANCREATOGRAPHY (MRCP) WITH AND WITHOUT CONTRAST ; CT ABDOMEN/PELVIS WITH CONTRAST ; US ABDOMEN LIMITED RIGHT UPPER QUADRANT Technique: Serial longitudinal and transverse real time grayscale images, were acquired through the abdomen utilizing a curved array transducer. Color Doppler images were used assess vascularity. Ten shear wave images were acquired in the right hepatic lobe of the liver per Elastography protocol. FINDINGS: Liver: Examination of the liver demonstrates diffusely increased echogenicity. There is a smooth hepatic surface contour. There are no solid hepatic masses. No intrahepatic bile duct dilatation. Color interrogation of the portal vein reveals patency and hepatopetal flow. Elastography examination: Quality: The elastography evaluation was diagnostic. Median Young's modulus of 7.74 kPa in the right hepatic lobe. Gallbladder: There are no shadowing calcifications. There is no pericholecystic fluid, or gallbladder wall thickening. The common bile duct is normal in caliber measuring 4 mm in diameter. Kidneys: The right kidney is normal in shape and position. The cortical thickness is normal and there is normal echogenicity. The right kidney measures 12.1 cm in length. There is no evidence of hydronephrosis, shadowing calcifications, solid/cystic masses or perinephric collections. Ascites: None. Procedure Note Barbara Paz MD - 08/19/2025 US LIVER WITH ELASTOGRAPHY Referring clinician's provided indication for this examination in Epic:Outside Radiology Order; cirrhosis US Indications: Outside Radiology Order; cirrhosis. Comparison: MRI CHOLANGIOPANCREATOGRAPHY (MRCP) WITH AND WITHOUT [id number]; CT ABDOMEN/PELVIS WITH CONTRAST ; US ABDOMENLIMITED RIGHT UPPER QUADRANT Technique: Serial longitudinal and transverse real time grayscale images,were acquired through the abdomen utilizing a curved array transducer.Color Doppler images were used assess vascularity. Ten shear wave imageswere acquired in the right hepatic lobe of the liver per Elastographyprotocol. FINDINGS: Liver: Examination of the liver demonstrates diffusely increasedechogenicity. There is a smooth hepatic surface contour. There are nosolid hepatic masses. No intrahepatic bile duct dilatation. Colorinterrogation of the portal vein reveals patency and hepatopetal flow. Elastography examination: Quality: The elastography evaluation was diagnostic. Median Young's modulus of 7.74 kPa in the right hepatic lobe. Gallbladder: There are no shadowing calcifications. There is nopericholecystic fluid, or gallbladder wall thickening. The common bileduct is normal in caliber measuring 4 mm in diameter. Kidneys: The right kidney is normal in shape and position. The corticalthickness is normal and there is normal echogenicity. The right kidneymeasures 12.1 cm in length. There is no evidence of hydronephrosis,shadowing calcifications, solid/cystic masses or perinephriccollections. Ascites: None. IMPRESSION: Heterogeneity of the hepatic echotexture mild nodularity of the hepaticcapsule with clinical history of cirrhosis. No focal hepatic lesiondemonstrated sonographically. Increased echogenicity of the hepaticparenchyma Median Young's modulus of 7.74 kPa consistent with Metavir (F0/F1) Normalliver evaluation to mild fibrosis. No evidence of significant hepaticfibrosis per median Young's modulus. The normal Young's modulus reportedin the literature is below 8.29 kPa. Shear-wave Elastography threshold values: Normal Young's modulus reported in literature: 8.29 kPa ELAS us Jaimee Coats CNP IMG US ABDOMEN Final Resu lt documented in this encounter Visit Diagnoses Diagnosis Hepatic cirrhosis, unspecified hepatic cirrhosis type, unspecified whether ascites present- Primary Liver lesion Other specified disorders of liver Hepatic cirrhosis, unspecified hepatic cirrhosis type, unspecified whether ascites present Liver lesion Other specified disorders of liver documented in this encounter Care Teams Berry Grower Relationship Specialty Start Date End Date Shanice Jones MD [address] [place] [address] PCP - General Family Medicine 07/17/25 documented as of this encounter Additional Source Comments The information contained in this document represents components of the legal health record. It is not the complete legal health record.[facility]
--- OUTSIDE RECORDS SUMMARY | 2025-09-15 18:16 | XMS_ITS | Encounter Summary ---
Author Organization [employer] Address [address] [facility] 7t [place] [address] Care Team Providers Care Mash Filter Cloth Changer Name Role Phone Shanice Jones MD Primary Care Provider [phone] Reason for Visit * Reason Onset Date Comments Durable Medical Equipment 08/26/2025 DME Re quest: Bedside Commode Encounter Details Date Type Department Care Team ([facility] st Contact Info) Description 08/26/2025 Telephone [facility] MEDICINE [address] [place], [place] [phone] Shanice Jones MD [address] [place], [place] [phone] Durable Medical Equipment (DME Request: Bedside Commode) Social History Tobacco Use Types Packs/Day Years [...] encounter Miscellaneous Notes * Telephone Encounter - Joan Lofton - 09/13/2025 11:43 AM EST DME order for a Bedside Commode was generated and sent via FAX to [facility] with supporting documentation. Confirmation was uploaded to Media. * Telephone Encounter - Mai Ramirez - 08/26/2025 3:24 PM EDT Jamal Estrada requesting a new scrip form DME - [facility] chair documented in this encounter Plan of Treatment Not on file documented as of this encounter Visit Diagnoses Not on filedocumented in this encounter Additional Health Concerns Assessment Noted Time PHQ-9 Depression Total Score: 6 03/26/20 25 4:46 PM EDT documented as of this encounter Care Teams Mash Filter Cloth Changer Relationship Specialty Start Date End Date Shanice Jones MD [address] [place] [address] PCP - General Family Medicine 12/22/20 Cary Alonzo Review ManagerSinging Messenger 08/26/24 Himanshu Caring 12/26/24 09/05/25 Olamide Buitrago Review ManagerSinging Messenger 08/11/25 Morenita 08/26/25 documented as of this encounter
--- OUTSIDE RECORDS SUMMARY | 2025-09-15 18:16 | XMS_ITS | Encounter Summary ---
Author Organization [employer] Address [address] [facility] 7 [place] [address] Care Team Providers Care Feed Management Advisor Name Role Phone Shanice Jones MD Primary Care Provider [phone] Sanaz Machuca Unavailable Reason for Referral * Imaging (Routine) - Closed Specialty Diagnoses / Procedures Referred By Contac t Referred To Contact Radiology Diagnoses Chronic left shoulder pain Procedures MR Shoulder w/o Contrast Left Shanice Jones MD [address] [place] [address] Phone: tel: fax: [address] Phone: tel: fax: Referral ID Status Reason Start Date Expiration Date Visits Re quested Visits Authorized [id number] Closed 05/06/2025 05/06/2026 1 1 Encounter Details Date Type Department Care Team (Late st Contact Info) Description 05/06/2025 Orders Only [facility] MEDICINE [address] [place], [place] [phone] Shanice Jones MD [address] [place] [phone] Chronic left shoulder pain (Primary Dx) Social [...] PM EDT Narrative 05/22/2025 9:37 PM EDT [address] [address] Magnetic Resonance Report Signed Patient: Lindsey Wilson MR#: [id number] : 1965 Acct:[id number] Age/Sex: 60 / F ADM Date: 05/20/25 Loc: HO.MRI Attending Dr: Shanice Jones MD Ordering Physician: Shanice Jones Date of Service: 05/20/25 Procedure(s): MR shoulder LT wo con Accession Number(s): [id number] cc: Shanice Jones CLINICAL HISTORY: chronic pain [...] in OV> 05/22/252135 DD/ 34 TD/TT: 05/22/252134 Tack Driller: Procedure Note Donotuseinterpreter, Image - 05/22/[address] [address] Magnetic Resonance Report Signed Patient: Lindsey Wilson MR#: [id number] : 1965Acct:[id number] Age/Sex: 60 / FADM Date: 05/20/25 Loc: HO.MRI Attending Dr: Shanice Jones MD Ordering Physician: Shanice Jones Date of Service: 05/20/25 Procedure(s): MR shoulder LT wo con Accession Number(s): [id number] cc: Shanice Jones CLINICAL HISTORY: chronic pain [...] in OV> 05/22/252135 DD/ 34 TD/TT: 05/22/252134 Tack Driller: Shanice Jones MD IMG MRI PROCEDURES Edited Resu lt - Final documented in this encounter Visit Diagnoses Diagnosis Chronic left shoulder pain- Primary Pain in joint, shoulder region documented in this encounter Additional Health Concerns Assessment Noted Time PHQ-9 Depression Total Score: 6 03/26/20 4:46 PM EDT documented as of this encounter Care Teams Feed Management Advisor Relationship Specialty Start Date End Date Shanice Jones MD [address] [place] [address] PCP - General Family Medicine 12/22/20 Sanaz Machuca 07/19/25 07/23/25 Cary Alonzo Weigh Machine OperatorCounty Judge 08/26/24 Himanshu Hayes 12/26/24 09/05/25 Olamide Buitrago Weigh Machine OperatorCounty Judge 08/11/25 Morenita 08/26/25 documented as of this encounter
--- OUTSIDE RECORDS SUMMARY | 2025-09-15 18:16 | XMS_ITS | Encounter Summary ---
Author Organization [employer] Address [address] [facility] 7 [place] [address] Care Team Providers Care Emt/Dispatcher Name Role Phone Shanice oJnes MD Primary Care Provider [phone] Sanaz Machuca Unavailable Encounter Details Date Type Department Care Team (Late st Contact Info) Description 10/22/2024 Orders Only [facility] [address] [place] [address] Provider, MD Maurisio Social History Tobacco Use [...] * Surgical Pathology (10/07/2024 8:25 AM EST) us Historical Provider LAB PATHOLOGY ORDERABLES Final Result documented in this encounter Visit Diagnoses Not on filedocumented in this encounter Care Teams Emt/Dispatcher Relationship Specialty Start Date End Date Shanice Jones MD [address] [place] [address] PCP - General Family Medicine 12/22/20 Sanaz Machuca 07/19/25 07/23/25 Cary Alonzo Machine Cell TuberTelephone Sales Agent 08/26/24 Himanshu Hayes 12/26/24 09/05/25 Olamide Buitrago Machine Cell TuberTelephone Sales Agent 08/11/25 Morenita 08/26/25 documented as of this encounter
--- OUTSIDE RECORDS SUMMARY | 2025-09-15 18:16 | XMS_ITS | Encounter Summary ---
Author Organization [employer] Address [address] [facility] [address] [place] [address] Care Team Providers Care Utilities Equipment Repairer Name Role Phone Shanice Jones MD Primary Care Provider Sanaz Machuca Unavailable Reason for Visit * Reason Onset Date Comments Med Refill 02/14/2024 Encounter Details Date Type Department Care Team (Late st Contact Info) Description 02/14/2024 Telephone [facility] MEDICINE [address] [place], [place] [phone] Shanice Jones MD [address] [place], [place] [phone] Med Refill Social History Tobacco Use Types [...] EDT Patient has not received Clonazepam from [facility] provider. She has been receiving from Oliverio Perales [address] [place] [address], TC via P/I#[id number], reviewed with patient the above information and advised to call Dr Perales. Patient stated she understood. * Telephone Encounter - Nava Carmichael - 02/14/2024 11:42 AM EDT TC from pt requesting medication refill. Medications needing refill : clonazePAM (KlonoPIN) 1 MG tablet To be sent to: [facility] Pharmacy documented in this encounter Plan of Treatment Not on file documented as of this encounter Visit Diagnoses Not on filedocumented in this encounter Care Teams Utilities Equipment Repairer Relationship Specialty Start Date End Date Shanice Jones MD [address] [place] [address] PCP - General Family Medicine 12/22/20 Sanaz Machuca 07/19/25 07/23/25 Cary Alonzo Cemetery WardenPublic Address System Operator 08/26/24 Himanshu Hayes 12/26/24 09/05/25 Olamide Buitrago Cemetery WardenPublic Address System Operator 08/11/25 Morenita 08/26/25 documented as of this encounter
--- OUTSIDE RECORDS SUMMARY | 2025-09-15 18:16 | XMS_ITS | Clinical Summary ---
Author Organization [facility] Address [address] [place] [address] Care Team Providers Care Drywall Applicator Name Role Phone Unavailable Primary Care Provider [...] 2015 Zoster Vaccines (1 of 2) 2015 Depression Screening 11/11/2024 COVID-19 Vaccine (1 - 2023-2 5 season) 2025 Influenza Vaccine (#1) 2025 RSV Immunization Adult [...]
--- OUTSIDE RECORDS SUMMARY | 2025-09-15 18:16 | XMS_ITS | Encounter Summary ---
Author Organization [facility] Address [address] [place] [address] Phone Care Team Providers Care Life Skills Specialist Name Role Phone Shanice Jones MD Primary Care Provider + Reason for Visit * Reason Onset Date Comments Needs a f/u - 4-5 mth with RC 08/26/2025 Encounter Details Date Type Department Care Team (Late st Contact Info) Description 08/26/2025 Telephone [facility] [address] [place], [place] [phone] Jaimee Coats CNP [address] [place] [address] [email or web address] Needs a f/u - 4-5 mth with RC Social History Tobacco Use Types Packs/Day Years [...] PM EDT documented as of this encounter Progress Notes * Bobbi Sun - 08/26/2025 4:13 PM EDT I called the PT to schedule a 4-5 month with RC- I left a message for a call back. documented in this encounter Plan of Treatment Upcoming Encounters Date Type Department Care Team (Late st Contact Info) Description 12/09/2025 3:20 PM EST Office Visit [facility] [address] [place] [address] Omari Potts DO 22 [place] [address] [email or web address] 01/31/2026 1:30 PM EDT Office Visit [facility] Neurology [address] [place] [address] Gabe Ramsey MD [address] [place] [address], 2nd [place] [address] [email or web address] documented as of this encounter Visit Diagnoses Not on filedocumented in this encounter Care Teams Life Skills Specialist Relationship Specialty Start Date End Date Shanice Jones MD [address] [place] [address] PCP - General Family Medicine 07/17/25 documented as of this encounter Additional Source Comments The information contained in this document represents components of the legal health record. It is not the complete legal health record.[facility]
--- OUTSIDE RECORDS SUMMARY | 2025-09-15 18:16 | XMS_ITS | Encounter Summary ---
Author Organization [employer] Address [address] 7t [place] [address] Care Team Providers Care Bronze Chaser Name Role Phone Shanice Jones MD Primary Care Provider [phone] Sanaz Machuca Unavailable Reason for Referral * Consultation (Routine) - Closed Specialty Diagnoses / Procedures Referred By Contac t Referred To Contact Rheumatology Diagnoses Spinal arthritis Shanice Jones MD [address] [place] [address] Phone: tel: fax: [facility] [address] Phone: tel: fax: Referral ID Status Reason Start Date Expiration Date V isits Requested Visits Authorized [id number] Closed Specialty Services Required 04/03/2024 04/03/2025 1 1 Encounter Details Date Type Department Care Team (Late st Contact Info) Description 04/03/2024 Orders Only [facility] [address] [place], [place] [phone] Shanice Jones MD [address] [place], [place] [phone] Spinal arthritis (Primary Dx) Social History Tobacco [...] EDT) Sodium 140 135 - 145 mmol/L [facility] Potassium 4.2 3.3 - 5.1 mmol/L [facility] Chloride 105 96 - 108 mmol/L [facility] Carbon Dioxide 26 22 - 29 mmol/L [facility] Anion Gap 13 12 - 20 [facility] Urea Nitrogen (BUN) 17(H) 9 - 16 mg/dL [facility] Creatinine, Serum 0.84 0.5 - 1.4 mg/dL [facility] Creatinine Clr Calc Pharmacy 75.7 [facility] Comment:Provided height and weight: 160.02 cm,87.543 kg.eGFR (calculated from the MDRD study equation) and eCrCl(calculated from the Cockcroft-Gault equation) are based ondifferent parameters and may not yield comparable results.If eCrCl result is absurd, please check patient'sheight/weight. Estimated Glomerular Filt Rate >60 [facility] Comment:NOTE: For -Am erican individuals, multiply the result by 1.210.Chronic Kidney Disease: Estimated GFR < 60 mL/min/[id number] Kidney Disease: Estimated GFR < 15 mL/min/1.73m2 Glucose 99 60 - 115 mg/dL [facility] Calcium 10.6(H) 8.4 - 10.2 mg/dL [facility] Bilirubin, Total 1.3(H) 0.0 - 1.0 mg/dL [facility] Aspartate Amino Transferase 52(H) 5 - 31 U/L [facility] Alanine Aminotransferase 45(H) 0 - 31 U/L [facility] Total Protein 7.7 6.5 - 8.0 g/dL [facility] Albumin Level 4.3 3.5 - 5.0 g/dL [facility] Alkaline Phosphatase 130(H) 39 - 117 U/L [facility] 06/15/2024 4:43 PM EDT 06/15/2024 4:47 PM EDT us Generic External Data Provider LAB BLOOD ORDERAB LES Final Result Performing Organization Address [facility] Co de Phone Number [facility] [address] [place] [phone] * Partial Thromboplastin Time, Activated (APTT) (06/15/2024 4:43 PM EDT) Partial Thromboplastin Time 28.6 26.0 - 36.8 SEC [facility] Comment:For information rega rding the monitoring of direct thrombininhibitors, please refer to Pharmacy. 06/15/2024 4:43 PM EDT 06/15/2024 4:47 PM EDT Generic External Data Provider LAB BLOOD ORDERAB LES Final Result Performing Organization Address [facility] Co de Phone Number [facility] [address] [place] [phone] * Prothrombin Time-INR (06/15/2024 4:43 PM EDT) Prothrombin Time 12.2 11.1 - 13.3 SEC [facility] INTERNATIONAL NORM RATIO 1.0 0.9 - 1.1 [facility] Comment:INTERNATIONAL NORMAL IZED RATIO (INR) [...] ORDERAB LES Final Result Performing Organization Address [facility] Co de Phone Number [facility] [address] [place] [phone] * (ABNORMAL) CBC auto differential (06/15/2024 4:43 PM EDT) White Blood Count 8.1 4.8 - 10.8 X10*3/uL [facility] Red Blood Count 4.16(L) 4.20 - 5.50 X10*6/uL [facility] Hemoglobin 11.5(L) 12.0 - 16.0 g/dl [facility] Hematocrit 36.0(L) 37.0 - 47.0 % [facility] Mean Corpuscular Volume 86.5 80.0 - 98.0 fL [facility] Mean Corpuscular Hemoglobin 27.6 27.0 - 33.0 pg [facility] Mean Corpuscular HGB Conc 31.9 31.0 - 35.0 g/dl [facility] Red Cell Distribution Width 17.1(H) 11.0 - 16.0 % [facility] Platelet Count 105(L) 160 - 400 X10*3/uL [facility] Mean Platelet Volume 9.8 9.4 - 12.3 fL [facility] Neutrophils Percent Auto 56.5 45 - 73 % [facility] Imm Gran Pct Auto 0.2 0.0 - 0.4 % [facility] Lymphocytes Percent Auto 32.4 20 - 40 % [facility] Monocytes Percent Auto 6.8 2 - 11 % [facility] Eosinophils Percent Auto 3.2 0 - 4 % [facility] Basophils Percent Auto 0.9 0 - 2 % [facility] NRBC Pct Auto 0.0 0.0 - 0.2 /100WBC [facility] Neutrophils Absolute Auto 4.6 2.0 - 8.3 x10*3/uL [facility] Imm Gran Abs Auto 0.02 0.00 - 0.03 X10*3/uL [facility] Lymphocytes Absolute Auto 2.6 1.2 - 4.9 X10*3/uL [facility] Monocytes Absolute Auto 0.6 0.1 - 1.2 X10*3/uL [facility] Eosinophils Absolute Auto 0.3 0.0 - 0.4 X10*3/uL [facility] Basophils Absolute Auto 0.1 0.0 - 0.2 X10*3/uL [facility] NRBC Abs Auto 0.000 0.0 - 0.012 X10*3/uL [facility] 06/15/2024 4:43 PM EDT 06/15/2024 4:47 PM EDT us Generic External Data Provider LAB BLOOD ORDERAB LES Final Result [facility] [address] [place] [phone] documented in this encounter Visit Diagnoses Diagnosis Spinal arthritis- Primary documented in this encounter Care Teams Bronze Chaser Relationship Specialty Start Date End Date Shanice Jones MD [address] [place] [address] PCP - General Family Medicine 12/22/20 Sanaz Machuca 07/19/25 07/23/25 Cary Alonzo Enterprise Sales PersonCustomer Acquisition Specialist 08/26/24 Himanshu Hayes 12/26/24 09/05/25 Olamide Buitrago Enterprise Sales PersonCustomer Acquisition Specialist 08/11/25 Morenita 08/26/25 documented as of this encounter
--- OUTSIDE RECORDS SUMMARY | 2025-09-15 18:16 | XMS_ITS | Encounter Summary ---
Author Organization [facility] Address [address] [place] [phone] Phone Care Team Providers Care Coding And Reimbursement Specialist Name Role Phone Raad Lucas NP, Renetta Primary Care Provider Malaika Augustin MD Primary Care Provider [phone] Shanice Jones MD Primary Care Provider + Shanice Jones MD Primary Care Provider + Encounter Details Date Type Department Care Team (Latest Contact Info) Description 02/23/2021 Ancillary Orders [facility] [address] [place] [id number] Ernie Portillo, DO [address] [place] [address] Chest pain, unspecified type Social History Tobacco [...] PM EST Office Visit [facility] [address] [place] [id number] Omari Potts DO 22 [place] [address] [email or web address] 01/31/2026 1:30 PM EDT Office Visit [facility] Neurology 22 [place] [address] Gabe Ramsey MD [address] [facility], 2nd [place] [address] [email or web address] documented as of this encounter Visit Diagnoses Diagnosis Chest pain, unspecified type documented in this encounter Additional Health Concerns Infection Onset Date Last Indicated Resolved Time CoV-Risk 02/20/2022 02/20/2022 03/03/2022 1:24 AM EDT CoV-Risk 06/05/2024 06/05/2024 06/16/2024 1:22 AM EDT documented as of this encounter Care Teams Coding And Reimbursement Specialist Relationship Specialty Start Date End Date Renetta Shankar NP PCP - General 07/08/20 06/04/21 Malaika Moeller MD [address] [address] [email or web address] PCP - General Family Medicine 06/05/21 10/17/21 Shanice Jones MD 15 [facility] [address] [place] [address] PCP - General 10/18/21 07/16/25 Shanice Jones MD [address] [place] [address] PCP - General Family Medicine 07/17/25 documented as of this encounter Additional Source Comments The information contained in this document represents components of the legal health record. It is not the complete legal health record.[facility]
--- OUTSIDE RECORDS SUMMARY | 2025-09-15 18:16 | XMS_ITS | Encounter Summary ---
Author Organization [facility] Address [address] [place] [address] Phone Care Team Providers Care Director Religious Education Name Role Phone Shanice Jones MD Primary Care Provider + Shanice Jones MD Primary Care Provider + Encounter Details Date Type Department Care Team (Late st Contact Info) Description 02/23/2025 Procedure Pass [facility], Ct Scan - [facility] [address] [place] [address] Social History Tobacco Use Types Packs/Day Years [...] 5:12 PM EDT Kamilah Charles RN * [place] Suicide Severity Rating Scale (Screener/Recent Self-Report) Question [...] PM EST Office Visit [facility] [address] [place] [address] Omari Potts DO [address] [place] [address] 01/31/2026 1:30 PM EDT Office Visit [facility] Neu[facility] [address] [place] [address] Gabe Ramsey MD [address] [place] [address], 2nd [place] [address] documented as of this encounter Visit Diagnoses Not on filedocumented in this encounter Care Teams Director Religious Education Relationship Specialty Start Date End Date Shanice Jones MD PCP - General 10/18/21 07/16/25 Shanice Jones MD [address] [place] [address] PCP - General Family Medicine 07/17/25 documented as of this encounter Additional Source Comments The information contained in this document represents components of the legal health record. It is not the complete legal health record.[facility]
--- OUTSIDE RECORDS SUMMARY | 2025-09-15 18:16 | XMS_ITS | Encounter Summary ---
Author Organization [facility] Address [address] [place] [address] Phone Care Team Providers Care Finisher Denture Name Role Phone Shanice Jones MD Primary Care Provider + Shanice Jones MD Primary Care Provider + Encounter Details Date Type Department Care Team (Late st Contact Info) Description 02/23/2025 Procedure Pass [facility], Ct Scan - [facility] [address] [place] [address] Social History Tobacco Use Types Packs/Day Years [...] 5:12 PM EDT Kamilah Charles RN * [place] Suicide Severity Rating Scale (Screener/Recent Self-Report) Question [...] PM EST Office Visit [facility] [address] [place] [address] Omari Potts DO [address] [place] [address] 01/31/2026 1:30 PM EDT Office Visit [facility] [address] [place] [address] Gabe Ramsey MD [address] [place] [address], 2nd [place] [address] documented as of this encounter Visit Diagnoses Not on filedocumented in this encounter Care Teams Finisher Denture Relationship Specialty Start Date End Date Shanice Jones MD PCP - General 10/18/21 07/16/25 Shanice Jones MD [address] [place] [address] PCP - General Family Medicine 07/17/25 documented as of this encounter Additional Source Comments The information contained in this document represents components of the legal health record. It is not the complete legal health record.[facility]
--- OUTSIDE RECORDS SUMMARY | 2025-09-15 18:16 | XMS_ITS | Encounter Summary ---
Author Organization [employer] Address [address] [facility] 7 [place] [address] Care Team Providers Care Household Appliance Installer Name Role Phone Shanice Jones MD Primary Care Provider [phone] Sanaz Machuca Unavailable Encounter Details Date Type Department Care Team (Late st Contact Info) Description 10/13/2024 Orders Only [facility] [address] [place] [address] Provider, MD Maurisio Social History Tobacco Use [...] * Surgical Pathology (10/07/2024 3:22 PM EST) us Historical Provider LAB PATHOLOGY ORDERABLES Final Result documented in this encounter Visit Diagnoses Not on filedocumented in this encounter Care Teams Household Appliance Installer Relationship Specialty Start Date End Date Shanice Jones MD [address] [place] [address] PCP - General Family Medicine 12/22/20 Sanaz Machuca 07/19/25 07/23/25 Cary Alonzo Pan OperatorBlowing Engineer 08/26/24 Himanshu Hayes 12/26/24 09/05/25 Olamide Buitrago Pan OperatorBlowing Engineer 08/11/25 Morenita 08/26/25 documented as of this encounter
--- OUTSIDE RECORDS SUMMARY | 2025-09-15 18:16 | XMS_ITS | Encounter Summary ---
Author Organization [facility] Address [address] [place] [address] Phone Care Team Providers Care Higher Level Teaching Assistant Name Role Phone Shanice Jones MD Primary Care Provider + Shanice Jones MD Primary Care Provider + Encounter Details Date Type Department Care Team (Latest Contact Info) Description 07/28/2024 Transcribe Orders Virtual Department [address] [place] [address] Jaimee Coats, EUFEMIA [address] [place] [address] [email or web address] Elevated LFTs (Primary Dx) Social History Tobacco [...] PM EST Office Visit [facility] [address] [place] [address] Omari Potts DO [address] [place] [address] 01/31/2026 1:30 PM EDT Office Visit [facility] Neurology [address] [place] [address] [place] [address] Gabe Ramsey MD [address] [place] [address], 2nd [place] [address] documented as of this encounter Results * [...] clinician's provided indication for this examination in [facility]:Outside Radiology Order; elevated lft's TECHNIQUE: US Abdominal [...] focal hepatic lesion. Jaimee Mccray Jorge [facility] US ABDOMEN Final Resu lt documented in this encounter Visit Diagnoses Diagnosis Elevated LFTs- Primary Other abnormal blood chemistry Elevated LFTs Other abnormal blood chemistry documented in this encounter Care Teams Higher Level Teaching Assistant Relationship Specialty Start Date End Date Shanice Jones MD PCP - General 10/18/21 07/16/25 Shanice Jones MD [address] [place] [address] PCP - General Family Medicine 07/17/25 documented as of this encounter Additional Source Comments The information contained in this document represents components of the legal health record. It is not the complete legal health record.[facility]
--- OUTSIDE RECORDS SUMMARY | 2025-09-15 18:16 | XMS_ITS | Encounter Summary ---
Author Organization [facility] Address [address] [place] [address] Phone Care Team Providers Care Hr Systems Analyst Name Role Phone Shanice Jones MD Primary Care Provider + Shanice Jones MD Primary Care Provider + Encounter Details Date Type Department Care Team (Late st Contact Info) Description 11/10/2024 Procedure Pass [facility], Ct Scan - [facility] 30 [place] [address] Social History Tobacco Use Types Packs/Day Years [...] 11/12/2024 8:31 AM Gabi Ochoa RN * [place] Suicide Severity Rating Scale (Screener/Recent Self-Report) Question [...] PM EST Office Visit [facility] [address] [place] [address] [place] [address] Omari Potts DO [address] [place] [address] 01/31/2026 1:30 PM EDT Office Visit [facility] Neurology [address] [place] [address] Gabe Ramsey MD [address] [place] [address], 2nd [place] [address] documented as of this encounter Visit Diagnoses Not on filedocumented in this encounter Care Teams Hr Systems Analyst Relationship Specialty Start Date End Date Shanice Jones MD PCP - General 10/18/21 07/16/25 Shanice Jones MD [address] [place] [address] PCP - General Family Medicine 07/17/25 documented as of this encounter Additional Source Comments The information contained in this document represents components of the legal health record. It is not the complete legal health record.[facility]
--- OUTSIDE RECORDS SUMMARY | 2025-09-15 18:16 | XMS_ITS | Encounter Summary ---
Author Organization [facility] Address [address] [place] [address] Phone Care Team Providers Care Line Production Cook Name Role Phone Malaika Moeller MD Primary Care Provider [phone] Shanice Jones MD Primary Care Provider + Shanice Jones MD Primary Care Provider + Encounter Details Date Type Department Care Team (Late st Contact Info) Description 07/19/2021 Procedure Pass [facility] [address] [place] [address] Social History Tobacco Use Types Packs/Day Years [...] 3:20 PM EST Office Visit [facility] [address] [place] [address] [place] [address] Omari Potts DO [address] [place] [address] 01/31/2026 1:30 PM EDT [facility] 22 [place] [address] Gabe Ramsey MD 22 [facility], 2nd [place] [address] documented as of this encounter Visit Diagnoses Not on filedocumented in this encounter Additional Health Concerns Infection Onset Date Last Indicated Resolved Time CoV-Risk 02/20/2022 02/20/2022 03/03/2022 1:24 AM EDT CoV-Risk 06/05/2024 06/05/2024 06/16/2024 1:22 AM EDT documented as of this encounter Care Teams Line Production Cook Relationship Specialty Start Date End Date Malaika Moeller MD [address] [address] PCP - General Family Medicine 06/05/21 10/17/21 Shanice Jones MD [address] [place] [address] PCP - General 10/18/21 07/16/25 Shanice Jones MD [address] [place] [address] PCP - General Family Medicine 07/17/25 documented as of this encounter Additional Source Comments The information contained in this document represents components of the legal health record. It is not the complete legal health record.[facility]
--- OUTSIDE RECORDS SUMMARY | 2025-09-15 18:16 | XMS_ITS | Encounter Summary ---
Author Organization [facility] Address [address] [place] [address] Phone Care Team Providers Care Communication Specialist Name Role Phone Shanice Jones MD Primary Care Provider + Encounter Details Date Type Department Care Team (Latest Contact Info) Description 08/09/2025 Transcribe Orders [facility] Doris [address] 2nd Floor [place], [place] [id number] Jaimee Coats, RADIOLOGY NURSE [address] [place] [address] [email or web address] Need for hepatitis B screening test (Primary Dx); Liver lesion; Hepatic cirrhosis, unspecified hepatic cirrhosis type, unspecified whether ascites present; Gastroesophageal reflux disease without esophagitis Social History Tobacco Use Types Packs/Day Years [...] 3:20 PM EST Office Visit [facility] [address] [place] [address] Omari Potts DO [address] [place] [address] 01/31/2026 1:30 PM EDT Office Visit [facility] Neurology [address] [place] [address] Gabe Ramsey MD 22 [facility], 2nd [place] [address] [email or web address] documented as of this encounter Results * PT-INR (08/09/2025 3:32 PM EDT) PT 12.4 10.2 - 12.9 sec [facility] INR 1.0 0.9 - 1.1 [facility] Comment:Therapeutic range fo r oral Vitamin K antagonists: 2.0-3.5 Blood 08/09/2025 3:32 PM EDT 08/09/2025 3:49 PM EDT us Jaimee Coats [facility] LAB BLOOD BKR ORDERABLES F inal Result [facility] [address] [place] [address] * (ABNORMAL) LFTs (hepatic panel) (08/09/2025 3:32 PM EDT) ALKALINE PHOSPHATASE 113 39 - 117 U/L [facility] TOTAL BILIRUBIN 1.2 0.0 - 1.2 mg/dL [facility] DIRECT BILIRUBIN 0.4(H) 0.0 - 0.2 mg/dL [facility] Bilirubin (Indirect) 0.8 0 - 1.5 mg/dL [facility] AST 31 0 - 37 U/L [facility] ALT 24 0 - 40 U/L [facility] TOTAL PROTEIN 7.5 6.5 - 8.0 g/dL [facility] ALBUMIN 4.6 3.9 - 4.8 g/dL [facility] GLOBULIN 2.9 1 - 4.8 g/dL [facility] A/G Ratio 1.59 1.00 - 4.80 RATIO [facility] Blood 08/09/2025 3:32 PM EDT 08/09/2025 3:49 PM EDT Jaimee Coats [facility] LAB BLOOD BKR ORDERABLES F inal Result Performing Organization Address [facility] Co de Phone Number [address] [address] * Hepatitis C antibody, qualitative (08/09/2025 3:32 PM EDT) HCV NON-REACTIV E NON-REACTI VE [facility] Blood 08/09/2025 3:32 PM EDT 08/09/2025 3:49 PM EDT Jaimee Coats [facility] LAB BLOOD BKR ORDERABLES E dited Result - Final Performing Organization Address [facility] Co de Phone Number [address] [address] * Hepatitis B surface antibody (08/09/2025 3:32 PM EDT) HBV SURFACE ANTIBODY Reactive [facility] Comment: Unvaccinated: Non Reactive Vaccinated: Reactive Blood 08/09/2025 3:32 PM EDT 08/09/2025 3:49 PM EDT Jaimee Coats [facility] LAB BLOOD BKR ORDERABLES E dited Result - Final Performing Organization Address [facility] Co de Phone Number [address] [address] * Hepatitis B surface antigen (08/09/2025 3:32 PM EDT) HBV SURFACE ANTIGEN NON-REACTI VE NON-REACTI VE [facility] Blood 08/09/2025 3:32 PM EDT 08/09/2025 3:49 PM EDT Jaimee Coats [facility] LAB BLOOD BKR ORDERABLES E dited Result - Final [address] [address] * Hemoglobin A1c (08/09/2025 3:32 PM EDT) HEMOGLOBIN A1C 5.6 4.3 - 5.8 % [facility] Blood 08/09/2025 3:32 PM EDT 08/09/2025 9:06 PM EDT us Jaimeekashif Mccray Jorge L [facility] LAB BLOOD BKR ORDERABLES F inal Result [address] [address] * (ABNORMAL) Liver fibrosis test (08/09/2025 3:32 PM EDT) Fibrosis score 0.49 [facility] Interpretation (Fibrosis) SEE NOTE [facility] Comment: (NOTE) moderate fibrosis Fibro Test Score (f) Metavir Score f>=0 and f<=0.21 : F0 (no fibrosis) f>0.21 and f<=0.27 : F0-F1 (no fibrosis) f>0.27 and f<=0.31 : F1 (minimal fibrosis) f>0.31 and f<=0.48 : F1-F2 (minimal fibrosis) f>0.48 and f<=0.58 : F2 (moderate fibrosis) f>0.58 and f<=0.72 : F3 (advanced fibrosis) f>0.72 and f<=0.74 : F3-F4 (advanced fibrosis) f>0.74 and f<=1.00 : F4 (severe fibrosis) HCV Fibrosis Grade F2 Q [facility] C NECROINFLAMM SCORE 0.14 Q [facility] C NECROINFLAMM GRADE A0 Q [facility] C NECROINFLAMM INTERP SEE NOTE [facility] Comment: (NOTE) no activity ActiTest Score (a) Metavir Score a>=0 and a<=0.17 : A0 (no activity) a>0.17 and a<=0.29 : A0-A1 (no activity) a>0.29 and a<=0.36 : A1 (minimal activity) a>0.36 and a<=0.52 : A1-A2 (minimal activity) a>0.52 and a<=0.60 : A2 (significant activity) a>0.60 and a<=0.62 : A2-A3 (significant activity) a>0.62 and a<=1.00 : A3 (severe activity) A2 Macroglobulin 165 106 - 279 mg/dL [facility]/ [facility] Haptoglobin 140 43 - 212 mg/dL [facility] [employer] [facility] Apolipoprotein A1 120 101 - 198 mg/dL [facility] [employer] [facility] TOTAL BILIRUBIN 1.3(H) 0.2 - 1.2 mg/dL [facility] GGT 125(H) 3 - 65 U/L [facility] ALT 24 6 - 29 U/L [facility] Specimen/Product ID [id number] [facility] Comments (Chemistry) SEE NOTE [facility]/ [employer] [facility] Comment: (NOTE) The reliability of results is dependent on compliance with the preanalytical and analytical conditions recommended by [employer]. The tests have to be deferred for: acute hemolysis, acute hepatitis, acute inflammation, extra hepatic cholestasis. The advice of a specialist should be sought for interpretation in chronic hemolysis and Gilbert's syndrome. The test interpretation is not validated in liver transplant patients. Isolated extreme values of one of the components should lead to caution in interpreting the results. In case of discordance between a biopsy result and a test, it is recommended to seek the advice of a specialist. The causes of these discordances could be due to a flaw of the test or to a flaw in the biopsy: i.e. a liver biopsy has a 33% variability rate for one fibrosis stage. FibroTest is interpretable for chronic hepatitis B and C, alcoholic and non alcoholic steatosis. ActiTest is interpretable for chronic hepatitis B and C. The performance characteristics have been determined by [employer] [place], [place]. It has not been cleared or approved by the U.S. Food and Drug Administration. Performance characteristics refer to the analytical performance of the test. [employer], the associated logo, [employer] and all associated [employer] martinez are the registered trademarks of [employer]. All third green party martinez - (R) and (TM) - are the property of their respective owners. (C) 3330-2352 [employer]. All rights reserved. Blood 08/09/2025 3:32 PM EDT 08/09/2025 3:50 PM EDT Jaimee Coats [facility] LAB BLOOD BKR ORDERABLES F inal Result [facility] [id number] [place] [address], [facility] [phone] * Ceruloplasmin (08/09/2025 3:32 PM EDT) CERULOPLASMIN 27 20 - 60 mg/dL [facility] Blood 08/09/2025 3:32 PM EDT 08/09/2025 3:[address] [facility] LAB BLOOD ORDERABLES Final Result Performing Organization Address City/[facility]/ZIP Co de Phone Number [address] [address] * Immunoglobulin A (08/09/2025 3:32 PM EDT) IgA 299 70 - 400 mg/dL [facility] Blood 08/09/2025 3:32 PM EDT 08/09/2025 3:[address] [facility] LAB BLOOD BKR ORDERABLES F inal Result Performing Organization Address City/[facility]/ZIP Co de Phone Number [facility] [address] [place] [address] * Tissue transglutaminase IgA (08/09/2025 3:32 PM EDT) TTG IGA ANTIBODY 1.3 <4.0 (Negative) U/mL [facility] [address] Blood 08/09/2025 3:32 PM EDT 08/09/2025 3:50 PM EDT Jaimee Coats [facility] LAB BLOOD BKR ORDERABLES F inal Result Performing Organization Address [facility] Co de Phone Number [facility]PATH [address] [place] [address] * Smooth Muscle Antibody (08/09/2025 3:32 PM EDT) Pathologist [facility] ANTI-SMOOTH MUSCLE AB Negative Negative [facility] Comment: (NOTE) Negative: No further testing will be performed ADDITIONAL INFORMATION This test was developed and its performance characteristics determined by [facility] in a manner consistent with CLIA requirements. This test has not been cleared or approved by the U.S. Food and Drug Administration. Blood 08/09/2025 3:32 PM EDT 08/09/2025 3:50 PM EDT Jaimee Coats [facility] LAB BLOOD ORDERABLES Final Result Performing Organization Address [facility] de Phone Number [facility]/PATH [address] [address] * Antinuclear antibody (PATRICK) (08/09/2025 3:32 PM EDT) Pathologist [facility] PATRICK SCREEN ON HEP 2 Negative Negative [facility] Blood 08/09/2025 3:32 PM EDT 08/09/2025 3:49 PM EDT Jaimee Coats [facility] LAB BLOOD BKR ORDERABLES F inal Result Performing Organization Address [facility] Co de Phone Number [facility] [address] [place] [address] * Anti-Mitochondrial Antibody (AMA) (08/09/2025 3:32 PM EDT) [facility] MITOCHONDRIAL AB M2 <0.1 <0.1 (Negative) U [facility] [address] Blood 08/09/2025 3:32 PM EDT 08/09/2025 3:50 PM EDT Jaimee Mccray Jorge L [facility] LAB BLOOD ORDERABLES Final Result Performing Organization Address City/[facility]/ZIP Co de Phone Number [facility] [address] [place] [address] * AFP (non-maternal specimens) (08/09/2025 3:32 PM EDT) [facility] AFP (NON-MATERNAL) 2.5 <7.9 ng/mL [facility] Comment: Test Methodology Valerie [id number] Patient results determined by assays using different manufacturers or methods may not be comparable. Blood 08/09/2025 3:32 PM EDT 08/09/2025 3:[address] [facility] LAB BLOOD BKR ORDERABLES F inal Result Performing Organization Address City/[facility]/ZIP Co de Phone Number [address] [address] * Sdtdu-3-ivabmndbjti phenotyping (08/09/2025 3:32 PM EDT) [facility] ALPHA 1 ANTITRYPSIN 141 100 - 190 mg/dL [facility] [address] Comment: (NOTE) ADDITIONAL INFORMATION Method: Nephelometry A1A PHENOTYPE MM bands [facility] [address] Comment: (NOTE) A single M isoform is detected. In the context of a normal lzzuq-8-ccchliypwtf concentration, this is consistent with an MM phenotype. ADDITIONAL INFORMATION Method: Isoelectric Focusing, This assay identifies the phenotype of the circulating czdba-8-ipzkbxqgrvu (A1A) protein. If the patient is on replacement therapy or has been recently transfused, the phenotype will detect patient and replacement or transfused plasma A1A protein. This test also cannot detect a null allele which could be responsible for an A1A deficiency. Blood 08/09/2025 3:32 PM EDT 08/09/2025 3:50 PM EDT Jaimee Mccray Jorge L [facility] LAB BLOOD ORDERABLES Final Result [facility] [address] [place] [address] documented in this encounter Visit Diagnoses Diagnosis Need for hepatitis B screening test- Primary Liver lesion Other specified disorders of liver Hepatic cirrhosis, unspecified hepatic cirrhosis type, unspecified whether ascites present Gastroesophageal reflux disease without esophagitis Esophageal reflux documented in this encounter Care Teams Communication Specialist Relationship Specialty Start Date End Date Shanice Jones MD [address] [place] [address] PCP - General Family Medicine 07/17/25 documented as of this encounter Additional Source Comments The information contained in this document represents components of the legal health record. It is not the complete legal health record.[facility]
== END 2025-09-15 15:51 | disposition home or self-care (01) ==
LOC: HO.HOS 15:20
PROVIDERS: PCP General Practice; Visit Provider Orthopaedic Surgery
DX: M75.42 Impingement syndrome of left shoulder (principal)
CPT/HCPCS: 99204

== ENCOUNTER → 2025-09-15 15:19 | Outpatient (BNVA) | payer MEDICAID, SELFPAY | PROVIDERS: PCP General Practice; Visit Provider Orthopaedic Surgery | DX: M75.42 Impingement syndrome of left shoulder (principal); G89.29 Other chronic pain | CPT/HCPCS: 99202 ==

== ENCOUNTER 2025-09-17 08:21 | Outpatient (REF) | payer MEDICAID, SELFPAY ==
--- NOTE | ~2025-09-17 | XR_ITS ---
EXAMINATION: XR ANKLE, RIGHT CLINICAL INFORMATION: M25.571 - Pain in right ankle and joints of right foot COMPARISON: None available. TECHNIQUE: AP, lateral, and mortise views of the right ankle. FINDINGS: There is mild lateral malleolar soft tissue swelling. The ankle mortise and subtalar joints are normal. There is moderate size retrocalcaneal enthesophyte. No lytic or sclerotic process seen. The soft tissues are normal. XR/XR ankle RT min 3V IMPRESSION: Mild lateral malleolar soft tissue swelling likely ligamentous injury. No acute fracture, dislocation or subluxation seen. Moderate size retrocalcaneal enthesophyte. Electronically signed by: Liborio Conrad MD 09/17/2025 02:11 PM [place]
--- OUTSIDE RECORDS SUMMARY | 2025-09-17 08:42 | XMS_ITS | Encounter Summary ---
Author Organization [facility] Address [address] [place] [address] Phone Care Team Providers Care Vegetable Packer Name Role Phone Shanice Jones MD Primary Care Provider + Shanice Jones MD Primary Care Provider + Encounter Details Date Type Department Care Team (Late st Contact Info) Description 08/13/2022 Procedure Pass [facility], Ct Scan - [facility] [address] [place] [address] Social History Tobacco Use Types Packs/Day Years [...] 2:30 PM EDT Teresa Rubio RN * [place] Suicide Severity Rating Scale (Screener/Recent Self-Report) Question [...] 3:20 PM EST Office Visit [facility] [address] [place] [address] Omari Potts DO 22 [place] [address] 01/31/2026 1:30 PM EDT Office Visit [facility] Neurology [address] [place] [address] Gabe Ramsey MD [address] [place] [address], 2nd [place] [address] documented as of this encounter Visit Diagnoses Not on filedocumented in this encounter Additional Health Concerns Infection Onset Date Last Indicated Resolved Time CoV-Risk 06/05/2024 06/05/2024 06/16/2024 1:22 AM EDT documented as of this encounter Care Teams Vegetable Packer Relationship Specialty Start Date End Date Shanice Jones MD PCP - General 10/18/21 07/16/25 Shanice Jones MD [address] [place] [address] PCP - General Family Medicine 07/17/25 documented as of this encounter Additional Source Comments The information contained in this document represents components of the legal health record. It is not the complete legal health record.[facility]
--- OUTSIDE RECORDS SUMMARY | 2025-09-17 08:42 | XMS_ITS | Encounter Summary ---
Author Organization [facility] Address [address] [place] [address] Phone Care Team Providers Care Software Development Manager Name Role Phone Shanice Jones MD Primary Care Provider + Shanice Jones MD Primary Care Provider + Encounter Details Date Type Department Care Team (Late st Contact Info) Description 08/18/2022 Procedure Pass [facility], Ct Scan - [facility] [address] [place] [address] Social History Tobacco Use Types Packs/Day Years [...] 7:05 PM EDT Betty Thomas RN * [place] Suicide Severity Rating Scale (Screener/Recent Self-Report) Question [...] 3:20 PM EST Office Visit [facility] [address] [place] [address] Omari Potts DO [address] [place] [address] 01/31/2026 1:30 PM EDT Office Visit [facility] Neurology [address] [place] [address] Gabe Ramsey MD [address] [place] [address], 2nd [place] [address] documented as of this encounter Visit Diagnoses Not on filedocumented in this encounter Additional Health Concerns Infection Onset Date Last Indicated Resolved Time CoV-Risk 06/05/2024 06/05/2024 06/16/2024 1:22 AM EDT documented as of this encounter Care Teams Software Development Manager Relationship Specialty Start Date End Date Shanice Jones MD PCP - General 10/18/21 07/16/25 Shanice Jones MD [address] [place] [address] PCP - General Family Medicine 07/17/25 documented as of this encounter Additional Source Comments The information contained in this document represents components of the legal health record. It is not the complete legal health record.[facility]
--- OUTSIDE RECORDS SUMMARY | 2025-09-17 08:43 | XMS_ITS | Encounter Summary ---
Author Organization [facility] Address [address] [place] [address] Phone Care Team Providers Care Soldering Machine Setter Name Role Phone Shanice Jones MD Primary Care Provider + Shanice Jones MD Primary Care Provider + Encounter Details Date Type Department Care Team (Late st Contact Info) Description 08/13/2022 Procedure Pass [facility], Ct Scan - [facility] [address] [place] [address] Social History Tobacco Use Types Packs/Day Years [...] 2:30 PM EDT Teresa Rubio RN * [place] Suicide Severity Rating Scale (Screener/Recent Self-Report) Question [...] 3:20 PM EST Office Visit [facility] [address] [place] [address] Omari Potts DO [address] [place] [address] 01/31/2026 1:30 PM EDT Office Visit [facility] Neurology [address] [place] [address] Gabe Ramsey MD [address] [place] [address], 2nd [place] [address] documented as of this encounter Visit Diagnoses Not on filedocumented in this encounter Additional Health Concerns Infection Onset Date Last Indicated Resolved Time CoV-Risk 06/05/2024 06/05/2024 06/16/2024 1:22 AM EDT documented as of this encounter Care Teams Soldering Machine Setter Relationship Specialty Start Date End Date Shanice Jones MD PCP - General 10/18/21 07/16/25 Shanice Jones MD [address] [place] [address] PCP - General Family Medicine 07/17/25 documented as of this encounter Additional Source Comments The information contained in this document represents components of the legal health record. It is not the complete legal health record.[facility]
--- OUTSIDE RECORDS SUMMARY | 2025-09-17 08:43 | XMS_ITS | Encounter Summary ---
Author Organization [facility] Address [address] [place] [address] Phone Care Team Providers Care Center Specialists Name Role Phone Shanice Jones MD Primary Care Provider + Shanice Jones MD Primary Care Provider + Encounter Details Date Type Department Care Team (Late st Contact Info) Description 06/05/2024 Procedure Pass [facility], Ct Scan - [facility] [address] [place] [address] Social History Tobacco Use Types Packs/Day Years [...] 1:53 AM EDT Gabby Whitehead RN * [place] Suicide Severity Rating Scale (Screener/Recent Self-Report) Question [...] 3:20 PM EST Office Visit [facility] [address] [place] [address] Omari Potts DO [address] [place] [address] 01/31/2026 1:30 PM EDT Office Visit [facility] Neurology [address] [place] [address] Gabe Ramsey MD [address] [place] [address], 2nd [place] [address] [email or web address] documented as of this encounter Visit Diagnoses Not on filedocumented in this encounter Additional Health Concerns Infection Onset Date Last Indicated Resolved Time CoV-Risk 06/05/2024 06/05/2024 06/16/2024 1:22 AM EDT documented as of this encounter Care Teams Center Specialists Relationship Specialty Start Date End Date Shanice Jones MD PCP - General 10/18/21 07/16/25 Shanice Jones MD [address] [place] [address] PCP - General Family Medicine 07/17/25 documented as of this encounter Additional Source Comments The information contained in this document represents components of the legal health record. It is not the complete legal health record.[facility]
--- OUTSIDE RECORDS SUMMARY | 2025-09-17 08:43 | XMS_ITS | Encounter Summary ---
Author Organization [facility] Address [address] [place] [address] Phone Care Team Providers Care Glassblower Name Role Phone Shanice Jones MD Primary Care Provider + Shanice Jones MD Primary Care Provider + Encounter Details Date Type Department Care Team (Late st Contact Info) Description 02/23/2025 Procedure Pass [facility], Ct Scan - [facility] [address] [place] [address] Social History Tobacco Use Types Packs/Day Years [...] 5:12 PM EDT Kamilah Charles RN * [place] Suicide Severity Rating Scale (Screener/Recent Self-Report) Question Answer Date of Assessment Author 1. Wish to be (Past 1 Month) No 025 5:12 PM EDT Kmailah Charles, HINA 2. Non-Specific Active Suici jared Thoughts (Past 1 Month) No 02/23/2025 5:12 PM EDT Kamilah Charles RN 6. Suicidal Behavior (Lifetime) No 5:12 PM EDT Kamilah Charles RN documented as of this encounter Plan of Treatment Upcoming Encounters Date Type Department Care Team (Late st Contact Info) Description 12/09/2025 3:20 PM EST Office Visit [facility] [address] [place] [address] Omari Potts DO [address] [place] [address] 01/31/2026 1:30 PM EDT Office Visit [facility] Neurology [address] [place] [address] Gabe Ramsey MD [address] [place] [address], [address] [place] [address] documented as of this encounter Visit Diagnoses Not on filedocumented in this encounter Care Teams Glassblower Relationship Specialty Start Date End Date Shanice Jones MD PCP - General 10/18/21 07/16/25 Shanice Jones MD [address] [place] [address] PCP - General Family Medicine 07/17/25 documented as of this encounter Additional Source Comments The information contained in this document represents components of the legal health record. It is not the complete legal health record.[facility]
--- OUTSIDE RECORDS SUMMARY | 2025-09-17 08:43 | XMS_ITS | Encounter Summary ---
Author Organization [facility] Address [address] [place] [address] Phone Care Team Providers Care Mobile Architect Name Role Phone Shanice Jones MD Primary Care Provider + Shanice Jones MD Primary Care Provider + Encounter Details Date Type Department Care Team (Late st Contact Info) Description 11/10/2024 Procedure Pass [facility], Ct Scan - [facility] [address] [place] [address] Social History Tobacco Use Types Packs/Day Years [...] 11/12/2024 8:31 AM Gabi Ochoa RN * [place] Suicide Severity Rating Scale (Screener/Recent Self-Report) Question [...] PM EST Office Visit [facility] [address] [place] [address] [place] [address] Omari Potts DO [address] [place] [address] 01/31/2026 1:30 PM EDT Office Visit [facility] Neurology [address] [place] [address] Gabe Ramsey MD [address] [place] [address], 2[address] [place] [address] documented as of this encounter Visit Diagnoses Not on filedocumented in this encounter Care Teams Mobile Architect Relationship Specialty Start Date End Date Shanice Jones MD PCP - General 10/18/21 07/16/25 Shanice Jones MD [address] [place] [address] PCP - General Family Medicine 07/17/25 documented as of this encounter Additional Source Comments The information contained in this document represents components of the legal health record. It is not the complete legal health record.[facility]
--- OUTSIDE RECORDS SUMMARY | 2025-09-17 08:43 | XMS_ITS | Encounter Summary ---
Author Organization [facility] Address [address] [place] [address] Phone Care Team Providers Care Academic Registrar Name Role Phone Shnaice Jonse MD Primary Care Provider + Shanice Jones MD Primary Care Provider + Encounter Details Date Type Department Care Team (Latest Contact Info) Description 07/28/2024 Transcribe Orders Virtual Department 30 [place] [address] Jaimee Coats, EUFEMIA 10 [place] [address] [email or web address] Elevated LFTs (Primary Dx) Social [...] PM EST Office Visit [facility] [address] [place] [address] Omari Potts DO [address] [place] [address] 01/31/2026 1:30 PM EDT Office Visit [facility] Neurology [address] [place] [address] [place] [address] Gabe Ramsey MD [address] [place] [address], 2nd [place] [address] documented as of this encounter Results * [...] clinician's provided indication for this examination in [facility]:Outside Radiology Order; elevated lft's TECHNIQUE: US Abdominal [...] focal hepatic lesion. Jaimee Mccray Jorge L [facility] IMG US ABDOMEN Final Resu lt documented in this encounter Visit Diagnoses Diagnosis Elevated LFTs- Primary Other abnormal blood chemistry Elevated LFTs Other abnormal blood chemistry documented in this encounter Care Teams Academic Registrar Relationship Specialty Start Date End Date Shanice Jones MD PCP - General 10/18/21 07/16/25 Shanice Jones MD [address] [place] [address] PCP - General Family Medicine 07/17/25 documented as of this encounter Additional Source Comments The information contained in this document represents components of the legal health record. It is not the complete legal health record.[facility]
--- OUTSIDE RECORDS SUMMARY | 2025-09-17 08:43 | XMS_ITS | Encounter Summary ---
Author Organization [facility] Address [address] [place] [address] Phone Care Team Providers Care Legal Internship Name Role Phone Shanice Jones MD Primary Care Provider + Encounter Details Date Type Department Care Team (Late st Contact Info) Description 07/17/2025 Procedure Pass [facility], Ct Scan - [facility] 30 [place] [address] Social History Tobacco Use Types Packs/Day Years [...] 8:00 PM EDT Nellie Bustamante RN * [place] Suicide Severity Rating Scale (Screener/Recent Self-Report) Question [...] PM EST Office Visit [facility] [address] [place] [address] Omari Potts DO 22 [place] [address] [email or web address] 01/31/2026 1:30 PM EDT Office Visit [facility] Neurology [address] [place] [address] Gabe Ramsey MD [address] [place] [address], 2nd [place] [address] [email or web address] documented as of this encounter Visit Diagnoses Not on filedocumented in this encounter Care Teams Legal Internship Relationship Specialty Start Date End Date Shanice Jones MD [address] [place] [address] PCP - General Family Medicine 07/17/25 documented as of this encounter Additional Source Comments The information contained in this document represents components of the legal health record. It is not the complete legal health record.[facility]
--- OUTSIDE RECORDS SUMMARY | 2025-09-17 08:43 | XMS_ITS | Encounter Summary ---
Author Organization [facility] Address [address] [place] [address] Phone Care Team Providers Care Bootmaker Name Role Phone Shanice Jones MD Primary Care Provider + Shanice Jones MD Primary Care Provider + Encounter Details Date Type Department Care Team (Late st Contact Info) Description 06/05/2024 Procedure Pass [facility], Ct Scan - [facility] 30 [place] [address] Social History Tobacco Use Types Packs/Day Years [...] 1:53 AM EDT Gabby Whitehead RN * [place] Suicide Severity Rating Scale (Screener/Recent Self-Report) Question [...] 3:20 PM EST Office Visit [facility] [address] [place] [address] Omari Potts DO [address] [place] [address] 01/31/2026 1:30 PM EDT Office Visit [facility] Neurology [address] [place] [address] Gabe Ramsey MD [address] [place] [address], 2nd [place] [address] [email or web address] documented as of this encounter Visit Diagnoses Not on filedocumented in this encounter Additional Health Concerns Infection Onset Date Last Indicated Resolved Time CoV-Risk 06/05/2024 06/05/2024 06/16/2024 1:22 AM EDT documented as of this encounter Care Teams Bootmaker Relationship Specialty Start Date End Date Shanice Jones MD PCP - General 10/18/21 07/16/25 Shanice Jones MD [address] [place] [address] PCP - General Family Medicine 07/17/25 documented as of this encounter Additional Source Comments The information contained in this document represents components of the legal health record. It is not the complete legal health record.[facility]
--- OUTSIDE RECORDS SUMMARY | 2025-09-17 08:43 | XMS_ITS | Encounter Summary ---
Author Organization [employer] Address [address] [facility] 7t [place] [address] Care Team Providers Care Aircraft Engine Assembler Name Role Phone Shanice Jones MD Primary Care Provider [phone] Sanaz Machuca Unavailable Encounter Details Date Type Department Care Team (Latest Contact Info) Description 12/05/2018 Abstract [facility] CONVERSIONS Dental, Provider, DDS Social [...] on filedocumented in this encounter Care Teams Aircraft Engine Assembler Relationship Specialty Start Date End Date Shanice Jones MD [address] [place] [address] PCP - General Family Medicine 12/22/20 Sanaz Machuca 07/19/25 07/23/25 Cary Alonzo Salvage LaborerGaming Manager 08/26/24 Jgara Caring 12/26/24 09/05/25 Olamide Buitrago Salvage LaborerGaming Manager 08/11/25 Morenita 08/26/25 documented as of this encounter
--- OUTSIDE RECORDS SUMMARY | 2025-09-17 08:43 | XMS_ITS | Encounter Summary ---
Author Organization [employer] Address [address] [facility] 7t [place] [address] Care Team Providers Care Biological Aide Name Role Phone Shanice Jones MD Primary Care Provider [phone] Sanaz Machuca Unavailable Encounter Details Date Type Department Care Team (Late st Contact Info) Description 03/23/2025 Orders Only [facility] [address] [place] [address] Provider, MD Maurisio Social History Tobacco Use [...] PM EDT Narrative 03/30/2025 1:37 PM EDT [address] [address] XRay Report Signed Patient: Lindsey Wilson MR#: [id number] : 1965 Acct:[id number] Age/Sex: 59 / F ADM Date: 03/30/25 Loc: HO.HHCX Attending Dr: Shanice Jones MD Ordering Physician: Shanice Jones Date of Service: 03/30/25 Procedure(s): XR cervical spine 3V Accession Number(s): [id number] cc: Shanice Jones EXAMINATION: XR CERVICAL SPINE [...] 03/30/25 1334 DD/ 1209 TD/TT: 03/30/25 1258 Hot Metal Crane Operator: Procedure Note Donotuseinterpreter, Image - 03/30/2025 [place] [address] XRay Report Signed Patient: Lindsey Wilson MR#: [id number] : 1965Acct:[id number] Age/Sex: 59 / FADM Date: 03/30/25 Loc: HO.HHCX Attending Dr: Shanice Jones MD Ordering Physician: Shanice Jones Date of Service: 03/30/25 Procedure(s): XR cervical spine 3V Accession Number(s): [id number] cc: Shanice Jones EXAMINATION: XR CERVICAL SPINE [...] 03/30/25 1334 DD/ 1209 TD/TT: 03/30/25 1258 Hot Metal Crane Operator: Shanice Jones MD IMG XR PROCEDURES Final Result * Hm Colonoscopy (10/07/2024 10:40 AM EST) Colonoscopy Normal Normal Narrative Idalmis Huber - 10/07/2024 10:40 AM EST Recommended 10 years . see results scanned in public employment mediator on 10/07/2024 us Historical Provider HEALTH MAINTENANCE Edited Result - Final documented in this encounter Visit Diagnoses Not on filedocumented in this encounter Care Teams Biological Aide Relationship Specialty Start Date End Date Shanice Jones MD [address] [place] [address] PCP - General Family Medicine 12/22/20 Sanaz Machuca 07/19/25 07/23/25 Cary Alonzo Funeral Prearrangement CounselorSampler Tester 08/26/24 Himanshu Hayes 12/26/24 09/05/25 Olamide Buitrago Funeral Prearrangement CounselorSampler Tester 08/11/25 Morenita 08/26/25 documented as of this encounter
--- OUTSIDE RECORDS SUMMARY | 2025-09-17 08:43 | XMS_ITS | Encounter Summary ---
Author Organization [facility] Address [address] [place] [address] Phone Care Team Providers Care Vice President Of Nursing Name Role Phone Shanice Jones MD Primary Care Provider + Shanice Jones MD Primary Care Provider + Encounter Details Date Type Department Care Team (Late st Contact Info) Description 10/07/2024 Procedure Pass [facility] Admitting Dept Virtual Department 30 [place] [address] Social History Tobacco Use Types Packs/Day Years [...] PM EST Office Visit [facility] [address] [place] [address] Omari Potts DO 22 [place] [address] 01/31/2026 1:30 PM EDT Office Visit [facility] Neurology 22 [place] [address] Gabe Ramsey MD [address] [place] [address], 2nd [place] [address] documented as of this encounter Visit Diagnoses Not on filedocumented in this encounter Care Teams Vice President Of Nursing Relationship Specialty Start Date End Date Shanice Jones MD PCP - General 10/18/21 07/16/25 Shanice Jones MD [address] [place] [address] PCP - General Family Medicine 07/17/25 documented as of this encounter Additional Source Comments The information contained in this document represents components of the legal health record. It is not the complete legal health record.[facility]
--- OUTSIDE RECORDS SUMMARY | 2025-09-17 08:43 | XMS_ITS | Encounter Summary ---
Author Organization [facility] Address [address] [place] [address] Phone Care Team Providers Care Lawyer Real Estate Name Role Phone Shanice Jones MD Primary Care Provider + Encounter Details Date Type Department Care Team (Late st Contact Info) Description 07/17/2025 Procedure Pass [facility] 30 [place] [address] Social History Tobacco Use Types Packs/Day Years [...] 8:00 PM EDT Nellie Bustamante RN * [place] Suicide Severity Rating Scale (Screener/Recent Self-Report) Question [...] PM EST Office Visit [facility] [address] [place] [address] Omari Potts DO 22 [place] [address] [email or web address] 01/31/2026 1:30 PM EDT Office Visit [facility] Neurology [address] [place] [address] Gabe Ramsey MD [address] [place] [address], 2nd [place] [address] [email or web address] documented as of this encounter Visit Diagnoses Not on filedocumented in this encounter Care Teams Lawyer Real Estate Relationship Specialty Start Date End Date Shanice Jones MD [address] [place] [address] PCP - General Family Medicine 07/17/25 documented as of this encounter Additional Source Comments The information contained in this document represents components of the legal health record. It is not the complete legal health record.[facility]
--- OUTSIDE RECORDS SUMMARY | 2025-09-17 08:43 | XMS_ITS | Encounter Summary ---
Author Organization [facility] Address [address] [place] [address] Phone Care Team Providers Care Network Operations Specialist Name Role Phone Shanice Jones MD Primary Care Provider + Shanice Jones MD Primary Care Provider + Encounter Details Date Type Department Care Team (Late st Contact Info) Description 11/10/2024 Procedure Pass [facility], Ct Scan - [facility] 30 [place] [address] Social History Tobacco Use Types Packs/Day Years [...] 11/12/2024 8:31 AM Gabi Ochoa RN * [place] Suicide Severity Rating Scale (Screener/Recent Self-Report) Question [...] 3:20 PM EST Office Visit [facility] [address] [place] [address] [place] [address] Omari Potts DO [address] [place] [address] 01/31/2026 1:30 PM EDT Office Visit [facility] Neu[facility] [address] [place] [address] Gabe Ramsey MD [address] [place] [address], 2nd [place] [address] documented as of this encounter Visit Diagnoses Not on filedocumented in this encounter Care Teams Network Operations Specialist Relationship Specialty Start Date End Date Shanice Jones MD PCP - General 10/18/21 07/16/25 Shanice Jones MD [address] [place] [address] PCP - General Family Medicine 07/17/25 documented as of this encounter Additional Source Comments The information contained in this document represents components of the legal health record. It is not the complete legal health record.[facility]
--- OUTSIDE RECORDS SUMMARY | 2025-09-17 08:43 | XMS_ITS | Encounter Summary ---
Author Organization [employer] Address [address] [facility] 7t [place] [address] Care Team Providers Care Motor Vehicle Light Assembler Name Role Phone Shanice Jones MD Primary Care Provider [phone] Sanaz Machuca Unavailable Encounter Details Date Type Department Care Team (Late st Contact Info) Description 07/11/2023 Abstract [facility] [address] [place], [place] [phone] Shanice Jones MD 230 [place], [place] [phone] Social History Tobacco Use Types Packs/Day Years [...] 09/16/2014 Recommended 10 year follow up ( [facility] ) us Historical Provider HEALTH MAINTENANCE Final Result documented in this encounter Visit Diagnoses Not on filedocumented in this encounter Care Teams Motor Vehicle Light Assembler Relationship Specialty Start Date End Date Shanice Jones MD [address] [place] [address] PCP - General Family Medicine 12/22/20 Sanaz Machuca 07/19/25 07/23/25 Cary Alonzo Sustainable Communities DesignerCan Bander Operator 08/26/24 Himanshu Hayes 12/26/24 09/05/25 Olamide Buitrago Sustainable Communities DesignerCan Bander Operator 08/11/25 Morenita 08/26/25 documented as of this encounter
--- OUTSIDE RECORDS SUMMARY | 2025-09-17 08:43 | XMS_ITS | Encounter Summary ---
Author Organization [facility] Address [address] [place] [address] Phone Care Team Providers Care Coloring Room Worker Name Role Phone Shanice Jones MD Primary Care Provider + Shanice Jones MD Primary Care Provider + Encounter Details Date Type Department Care Team (Late st Contact Info) Description 02/23/2025 Procedure Pass [facility], Ct Scan - [facility] 30 [place] [address] Social History Tobacco Use Types Packs/Day Years [...] 5:12 PM EDT Kamilah Charles RN * [place] Suicide Severity Rating Scale (Screener/Recent Self-Report) Question [...] PM EST Office Visit [facility] [address] [place] [address] Omari Potts DO [address] [place] [address] 01/31/2026 1:30 PM EDT Office Visit [facility] [address] [place] [address] Gabe Ramsey MD [address] [place] [address], 2nd [place] [address] documented as of this encounter Visit Diagnoses Not on filedocumented in this encounter Care Teams Coloring Room Worker Relationship Specialty Start Date End Date Shanice Jones MD PCP - General 10/18/21 07/16/25 Shanice Jones MD 230 [place] [address] PCP - General Family Medicine 07/17/25 documented as of this encounter Additional Source Comments The information contained in this document represents components of the legal health record. It is not the complete legal health record.[facility]
--- OUTSIDE RECORDS SUMMARY | 2025-09-17 08:43 | XMS_ITS | Encounter Summary ---
Author Organization [facility] Address [address] [place] [address] Phone Care Team Providers Care Analyst Microbiology Lab Name Role Phone Shanice Jones MD Primary Care Provider + Encounter Details Date Type Department Care Team (Late st Contact Info) Description 07/17/2025 Procedure Pass [facility], Ct Scan - [facility] 30 [place] [address] Social History Tobacco Use Types Packs/Day Years [...] 8:00 PM EDT Nellie Bustamante RN * [place] Suicide Severity Rating Scale (Screener/Recent Self-Report) Question [...] PM EST Office Visit [facility] [address] [place] [address] Omari Potts DO 22 [place] [address] [email or web address] 01/31/2026 1:30 PM EDT Office Visit [facility] Neurology [address] [place] [address] Gabe Ramsey MD [address] [place] [address], 2nd [place] [address] [email or web address] documented as of this encounter Visit Diagnoses Not on filedocumented in this encounter Care Teams Analyst Microbiology Lab Relationship Specialty Start Date End Date Shanice Jones MD [address] [place] [address] PCP - General Family Medicine 07/17/25 documented as of this encounter Additional Source Comments The information contained in this document represents components of the legal health record. It is not the complete legal health record.[facility]
--- OUTSIDE RECORDS SUMMARY | 2025-09-17 08:43 | XMS_ITS | Encounter Summary ---
Author Organization [facility] Address [address] [place] [address] Phone Care Team Providers Care Remote Encoding Center Manager Name Role Phone Shanice Jones MD Primary Care Provider + Shanice Jones MD Primary Care Provider + Encounter Details Date Type Department Care Team (Late st Contact Info) Description 05/03/2023 Procedure Pass [facility], Ct Scan - [facility] 30 [place] [address] Social History Tobacco Use Types Packs/Day Years [...] 12:19 PM EDT Kamilah Charles RN * [place] Suicide Severity Rating Scale (Screener/Recent Self-Report) Question [...] 3:20 PM EST Office Visit [facility] [address] [place] [address] [place] [address] Omari Potts DO [address] [place] [address] 01/31/2026 1:30 PM EDT Office Visit [facility] Neurology [address] [place] [address] [place] [address] Gabe Ramsey MD [address] [place] [address], 2nd [place] [address] documented as of this encounter Visit Diagnoses Not on filedocumented in this encounter Additional Health Concerns Infection Onset Date Last Indicated Resolved Time CoV-Risk 06/05/2024 06/05/2024 06/16/2024 1:22 AM EDT documented as of this encounter Care Teams Remote Encoding Center Manager Relationship Specialty Start Date End Date Shanice Jones MD PCP - General 10/18/21 07/16/25 Shanice Jones MD [address] [place] [address] PCP - General Family Medicine 07/17/25 documented as of this encounter Additional Source Comments The information contained in this document represents components of the legal health record. It is not the complete legal health record.[facility]
--- OUTSIDE RECORDS SUMMARY | 2025-09-17 08:44 | XMS_ITS | Encounter Summary ---
Author Organization [facility] Address [address] [place] [address] Phone Care Team Providers Care Counselor Aid Name Role Phone Raad Lucas NP, Renetta Primary Care Provider Malaika Augustin MD Primary Care Provider [phone] Shanice Jones MD Primary Care Provider + Shanice Jones MD Primary Care Provider + Encounter Details Date Type Department Care Team (Latest Contact Info) Description 02/23/2021 Ancillary Orders [facility] [address] [place] [address] Ernie Portillo, DO [address] [place] [address] Chest pain, unspecified type Social History Tobacco [...] PM EST Office Visit [facility] [address] [place] [address] Omari Potts DO 22 [place] [address] [email or web address] 01/31/2026 1:30 PM EDT Office Visit [facility] 22 [place] [address] Gabe Ramsey MD 22 [facility], 2nd [place] [address] [email or web address] documented as of this encounter Visit Diagnoses Diagnosis Chest pain, unspecified type documented in this encounter Additional Health Concerns Infection Onset Date Last Indicated Resolved Time CoV-Risk 02/20/2022 02/20/2022 03/03/2022 1:24 AM EDT CoV-Risk 06/05/2024 06/05/2024 06/16/2024 1:22 AM EDT documented as of this encounter Care Teams Counselor Aid Relationship Specialty Start Date End Date Renetta Shankar NP PCP - General 07/08/20 06/04/21 Malaika Moeller MD [address] [address] [email or web address] PCP - General Family Medicine 06/05/21 10/17/21 Shanice Jones MD 15 [facility] [address] [place] [address] PCP - General 10/18/21 07/16/25 Shanice Jones MD [address] [place] [address] PCP - General Family Medicine 07/17/25 documented as of this encounter Additional Source Comments The information contained in this document represents components of the legal health record. It is not the complete legal health record.[facility]
--- OUTSIDE RECORDS SUMMARY | 2025-09-17 08:44 | XMS_ITS | Clinical Summary ---
Author Organization [facility] Address [address] [place] [address] Phone Care Team Providers Care Inoculator Name Role Phone Shanice Jones MD Primary [...] skin 4 (four) times a day. Active aspirin 81 MG EC tablet Take [...] skin every 30 (thirty) days. 1.5 mL 11 025 Active dulaglutide (TRULICITY) 4.5 mg/0.5 mL subcutaneous injectionIndica tions:Type 2 diabetes mellitus with diabetic microalbuminuri a, with long-term current use of insulin Inject 0.5 mL (4.5 mg total) under the skin every 7 days. 6 mL 1 025 Active insulin aspart U-100 (NOVOLOG) 100 unit/mL (3 mL) injection penIndications: Type 2 diabetes mellitus with diabetic microalbuminuri a, with long-term current use of insulin INJECT 5 UNITS SUBCUTANEOUSLY THREE TIMES DAILY WITH MEALS 15 mL 1 Active rosuvastatin (CRESTOR) 10 MG tabletIndicatio ns:Hyperlipidem [...] Active ferrous sulfate 325 mg (65 mg tribal iron) tablet Take 1 tablet by mouth every morning. Active docusate sodium (COLACE) 100 MG capsule Take 100 mg by mouth. 2025 Active SENNA 8.6 mg tablet TAKE 1 TABLET BY MOUTH TWICE DAILY IN THE MORNING AND AT BEDTIME NEEDED FOR CONSTIPATION Active QUEtiapine (SEROQUEL) 25 MG tablet Take 25 mg by mouth nightly at bedtime as needed. Active ALCOHOL PREP PADS PadMIndications :Type 2 diabetes mellitus with hyperglycemia, with long-term current use of insulin USE DIRECTED 8 TIMES PER DAY 800 each 3 Active lancets 28 gauge MiscIndications :Type 2 diabetes mellitus with hyperglycemia, with long-term current use of insulin 1 each by Miscellaneous route 4 (four) times a day before meals and nightly. 400 each 3 025 Active glipiZIDE (GLUCOTROL) 10 MG 24 hr tablet Take 10 mg by mouth daily. 2020 Discontinued furosemide (LASIX) 20 MG tablet Take 20 mg by mouth every morning. 021 2021 Discontinued(T herapy Completed/No Longer Necessary) ALCOHOL PREP PADS PadMIndications :Type 2 diabetes mellitus with hyperglycemia, with long-term current use of insulin USE DIRECTED 8 TIMES PER DAY 800 each 3 02/25/ 024 2024 Discontinued(R eorder) lancets 28 gauge MiscIndications :Type 2 diabetes mellitus with hyperglycemia, with long-term current use of insulin 1 each by Miscellaneous route 4 (four) times a day before meals and nightly. 400 each 3 024 2024 Discontinued(R eorder) Active Problems Problem Noted [...] to 150s --Findings were reviewed with her ingot weigher. Unclear cause of the baseline low cortisol but rise in levels with ACTH reassuring. Patient denies any recent use of systemic corticosteroids or injection. She does take Flonase. Given her clinical improvement, does not require hydrocortisone. She will follow-up with endocrinology. --Continue carvedilol and prazosin with hold parameters -- Will continue to hold CLAUDIA inhibitor Assessment & Plan (07/19/2025 5:52 PM [...] is not getting enough Lantus because the [facility] pharmacy has written for 30 units of [...] 2 weeks. The patient received lot number [id number], expiration 12/26/2023. Assessment & Plan (03/22/2022 5:15 [...] weeks. She was given sample Lot number [id number], expiration 04/13/2023. She does have gastroparesis so [...] have more enuresis. 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 I tried to cemetery counselor her on nutrition she states that [...] Encounters Date Type Department Care Team Description 09/16/2025 Refill [facility] [address] [place] [address] [place] [address] Abena Biutrago MA 08/26/2025 Telephone [facility] [address] [place] [address] Jaimee Coats CNP Needs a f/u - 4-5 mth with RC 08/25/2025 Refill [facility] [address] [place] [address] Claritza Pastor MA Medication Refill 08/19/2025 9:33 AM EDT - 08/19/2025 11:59 PM EDT Hospital Encounter [facility] - [address] [address] Jaimee Coats CNP Discharge Disposition: Home or Self Care 08/10/2025 Transcribe Orders Virtual Department [address] [place] [address] Jaimee Coats CNP Hepatic cirrhosis, unspecified hepatic cirrhosis type, unspecified whether ascites present (Primary Dx); Liver lesion 08/09/2025 3:31 PM EDT - 08/09/2025 11:59 PM EDT Hospital Encounter [facility] [address] [place] [phone] Jaimee Coats CNP Discharge Disposition: Home or Self Care 08/09/2025 Transcribe Orders [facility] [address] [address] Jaimee Coats CNP Need for hepatitis B screening test (Primary Dx); Liver lesion; Hepatic cirrhosis, unspecified hepatic cirrhosis type, unspecified whether ascites present; Gastroesophageal reflux disease without esophagitis 07/28/2025 Orders Only [facility] [address] [place] [phone] Homehealth, Interface ProviderMD 07/26/2025 11:30 AM EDT Office Visit [facility] Neurology [address] [place] [address] Mellisa Monterroso FNP Intractable chronic migraine without aura and with status migrainosus (Primary Dx); Chronic pain syndrome 07/22/2025 7:41 AM EDT - 07/22/2025 11:59 PM EDT Hospital Encounter [facility] Laboratory [address] [place] [address] Bobbi Malone MD Discharge Disposition: Home or Self Care 07/22/2025 Orders Only [facility] Medicine Virtual Department [address] [place] [address] Billie Khanna MD 07/22/2025 Orders Only [facility] Medicine Virtual Department [address] [place] [address] Billie Khanna MD 07/22/2025 Orders Only [facility] Medicine Virtual Department [address] [place] [address] Billie Khanna MD 07/22/2025 Transcribe Orders [facility] Specimen Processing [address] [place] [address] Bobbi Malone MD Illness (Primary Dx) 07/20/2025 Orders Only [facility] [address] [place] [phone] Homehealth, Interface ProviderMD 07/17/2025 1:33 PM EDT - 07/21/2025 6:32 PM EDT Hospital Encounter [facility] [address] [place] [address] Jose Eduardo Dale MD Grachev, Maksim, DO Green, Tracy L, MD Discharge Disposition: Senior Living Facility 07/17/[address] [address] 07/17/2025 Procedure [place], [facility] Scan [address] [address] 07/17/[address] [address] 07/16/2025 7:35 PM EDT - 07/16/2025 7:39 PM EDT Emergency [facility] Emergency [address] [place] [address] Discharge Disposition: Left Without Being Seen from Last 3 Months Immunizations Immunization Administration [...] ecorded Are you denied basic needs s [facility] as food, clothing, or medical care? No 07/17/2025 In the past 12 months have y ou been in a relationship with a person who hurts, threatens, or tries to control you? No 07/17/2025 Are you denied basic needs s [facility] as food, clothing, or medical care? No [...] PM EST Office Visit [facility] [address] [place] [address] Omari Potts DO [address] [place] [address] 01/31/2026 1:30 PM EDT Office Visit [facility] Neurology [address] [place] [address] Gabe Ramsey MD [address] [place] [address], [address] [place] [address] Health Maintenance Due Date Last Done Comments DEPRESSION SCREENING 1977 HIV ONE-TIME SCREENING (18-65 YEARS) 1983 HEPATITIS A VACCINES (1 of 2 - Risk 2-dose series) 1984 PAP SMEAR 1986 COLOGUARD 2010 FOBT 2010 SIGMOIDOSCOPY 2010 VIRTUAL COLONOSCOPY 2010 RSV VACCINE (1 - Risk 50-74 years 1-dose series) 2015 PNEUMOCOCCAL VACCINES (50+ years) (2 of 2 - PCV) 12/17/2017 12/17/2016 DIABETIC EYE EXAM 03/19/2021 COVID-19 VACCINE (2 - 2024- season) 2025 12/01/2021 FIT TEST 07/28/2025 07/28/2024 BLOOD PRESSURE 01/23/2026 07/26/2025 HEMOGLOBIN A1C 02/06/2026 08/09/2025, 07/13, 07/18/2025, Additional history exists MAMMOGRAM 06/10/2026 06/10/2024, 06/12, 07/04/2020, Additional history exists TSH LEVEL 07/18/2026 07/18/2025 CREATININE LEVEL 07/22/2026 07/22/2025, 05/2025, 07/17/2025, Additional history exists POTASSIUM LEVEL 07/22/2026 07/22/2025, 09/0 05/2025, 07/17/2025, Additional history exists Adult Td,Tdap Booster 12/25/2031 12/25/2021, 010 COLONOSCOPY 10/07/2034 10/07/2024 COLORECTAL CANCER SCREENING 10/07/2034 ZOSTER VACCINES Completed 12/25/2021, 10/18/2020 SMOKING STATUS SCREENING (Once After 26 Yrs) Completed 07/16/2025 INFLUENZA VACCINE Completed 07/21/2025, , 10/02/2021, Additional history exists HEPATITIS C SCREENING Completed 08/09/2025 , 08/09/2025, 12/01/2024, Additional history exists HIB VACCINES Aged Out No longer eligi ble based on patient's age to complete this topic IPV VACCINES Aged Out No longer eligi ble based on patient's age to complete this topic MENINGOCOCCAL VACCINES (ACWY) Aged Out No longer eligible based on patient's age to complete this topic MENINGOCOCCAL VACCINES (B) Aged Out N o longer eligible based on patient's age to complete this topic Medical Devices Implanted Type Area Steel Manager Device Identifier Shelf Expiration Date Model / Serial / Lot Web Embolization Coil Coil Brain Cordis Precise Stent Stent Procedures Procedure Name Priority Date/Time Associated Diagnosis Comments US LIVER WITH ELASTOGRAPHY Routine 08/19/2025 10:57 AM EDT Hepatic cirrhosis, unspecified hepatic cirrhosis type, unspecified whether ascites present Liver lesion [id number] PHENOTYPING Routine 08/09/2025 3:32 PM EDT Need for hepatitis B screening test Liver lesion Hepatic cirrhosis, unspecified hepatic cirrhosis type, unspecified whether ascites present Gastroesophageal reflux disease without esophagitis AFP (NON-MATERNAL SPECIMENS) Routine 08/09/2025 3:32 PM EDT Need for hepatitis B screening test Liver lesion Hepatic cirrhosis, unspecified hepatic cirrhosis type, unspecified whether ascites present Gastroesophageal reflux disease without esophagitis ANTI-MITOCHONDRIAL ANTIBODY (AMA) Routine 08/09/2025 3:32 PM EDT Need for hepatitis B screening test Liver lesion Hepatic cirrhosis, unspecified hepatic cirrhosis type, unspecified whether ascites present Gastroesophageal reflux disease without esophagitis ANTINUCLEAR ANTIBODY (PATRICK) Routine 08/09/2025 3:32 PM EDT Need for hepatitis B screening test Liver lesion Hepatic cirrhosis, unspecified hepatic cirrhosis type, unspecified whether ascites present Gastroesophageal reflux disease without esophagitis SMOOTH MUSCLE ANTIBODY Routine 3:32 PM EDT Need for hepatitis B screening test Liver lesion Hepatic cirrhosis, unspecified hepatic cirrhosis type, unspecified whether ascites present Gastroesophageal reflux disease without esophagitis TISSUE TRANSGLUTAMINASE IGA Routine 08/09/2025 3:32 PM EDT Need for hepatitis B screening test Liver lesion Hepatic cirrhosis, unspecified hepatic cirrhosis type, unspecified whether ascites present Gastroesophageal reflux disease without esophagitis IMMUNOGLOBULIN A Routine 08/09/2025 3:32 PM EDT Need for hepatitis B screening test Liver lesion Hepatic cirrhosis, unspecified hepatic cirrhosis type, unspecified whether ascites present Gastroesophageal reflux disease without esophagitis CERULOPLASMIN Routine 08/09/2025 3:32 PM EDT Need for hepatitis B screening test Liver lesion Hepatic cirrhosis, unspecified hepatic cirrhosis type, unspecified whether ascites present Gastroesophageal reflux disease without esophagitis LIVER FIBROSIS TEST Routine 08/09/2025 3 :32 PM EDT Need for hepatitis B screening test Liver lesion Hepatic cirrhosis, unspecified hepatic cirrhosis type, unspecified whether ascites present Gastroesophageal reflux disease without esophagitis HEMOGLOBIN A1C Routine 08/09/2025 3:32 PM EDT Need for hepatitis B screening test Liver lesion Hepatic cirrhosis, unspecified hepatic cirrhosis type, unspecified whether ascites present Gastroesophageal reflux disease without esophagitis HEPATITIS B SURFACE ANTIBODY Routine 08/09/2025 3:32 PM EDT Need for hepatitis B screening test LFTS (HEPATIC PANEL) Routine 08/09/2025 3:32 PM EDT Need for hepatitis B screening test Liver lesion Hepatic cirrhosis, unspecified hepatic cirrhosis type, unspecified whether ascites present Gastroesophageal reflux disease without esophagitis PT-INR Routine 08/09/2025 3:32 PM EDT Need for hepatitis B screening test Liver lesion Hepatic cirrhosis, unspecified hepatic cirrhosis type, unspecified whether ascites present Gastroesophageal reflux disease without esophagitis HEPATITIS B SURFACE ANTIGEN Routine 08/09/2025 3:32 PM EDT Need for hepatitis B screening test HEPATITIS C ANTIBODY, QUALITATIVE Routine 08/09/2025 3:32 PM EDT Need for hepatitis B screening test Liver lesion Hepatic cirrhosis, unspecified hepatic cirrhosis type, unspecified whether ascites present Gastroesophageal reflux disease without esophagitis COMPREHENSIVE METABOLIC PANEL (CMP) Routine 07/22/2025 6:15 AM EDT Illness CBC Routine 07/22/2025 6:15 AM EDT Illness POCT GLUCOSE Routine 07/21/2025 4:27 PM EDT POCT GLUCOSE Routine 07/21/2025 12:04 PM EDT POCT GLUCOSE Routine 07/21/2025 7:21 AM EDT POCT GLUCOSE Routine 07/20/2025 4:34 PM EDT POCT GLUCOSE Routine 07/20/2025 11:17 AM EDT POCT GLUCOSE Routine 07/20/2025 7:33 AM EDT ACTH Timed 07/20/2025 5:38 AM EDT CORTISOL STIMULATION (BASELINE,30MIN,60MIN) Routine 07/20/2025 5:38 AM EDT POCT GLUCOSE [...] (ESR) Routine 07/18/2025 5:55 AM EDT C-REACTIVE PROTEIN (CRP), HIGH SENSITIVITY Routine 07/18/2025 5:55 AM EDT LIPID PANEL Routine 07/18/2025 5:55 AM EDT THYROID STIMULATING HORMONE (TSH) Routine 07/18/2025 5:55 AM EDT PTT Routine 07/18/2025 5:55 AM EDT PT-INR Routine 07/18/2025 5:55 AM EDT COMPREHENSIVE METABOLIC PANEL (CMP) Routine 07/18/2025 5:55 AM EDT CBC AND DIFFERENTIAL Routine 07/18/2025 5:55 AM EDT PHOSPHORUS Routine 07/18/2025 5:55 AM EDT MAGNESIUM Routine 07/18/2025 5:55 AM EDT URINALYSIS WITH REFLEX TO URINE CULTURE STAT 07/18/2025 2:03 AM EDT [...] 07/17/2025 4:12 PM EDT BASIC METABOLIC PANEL (BMP) STAT 07/17/2025 4:12 PM EDT CBC AND [...] VIEW Routine 07/16/2025 4: 03 PM EDT ENDOSCOPY, COLON 10/07/2024 3:55 PM EST FECAL IMMUNOCHEMICAL BLOOD TEST X1 (FIT) Routine 07/28/2024 6:11 PM EDT Gastroesophageal reflux disease, unspecified whether esophagitis present Abnormal stools Iron deficiency anemia, unspecified iron deficiency anemia type Abdominal pain, epigastric from Last 3 Months or Most Recently Relevant to Health Maintenance Results * US LIVER WITH ELASTOGRAPHY (08/19/2025 [...] Comparison: MRI CHOLANGIOPANCREATOGRAPHY (MRCP) WITH AND WITHOUT [id number]; CT ABDOMEN/PELVIS WITH CONTRAST ; US ABDOMENLIMITED [...] reported in literature: 8.29 kPa ELAS us Jaimeekashif Mccray Jorge L TRAINING ASSOCIATE IMG US ABDOMEN Final Resu lt * (ABNORMAL) Liver fibrosis test (08/09/2025 3:32 PM EDT) Fibrosis score 0.49 [facility] Interpretation (Fibrosis) SEE NOTE [facility] Comment: (NOTE) moderate fibrosis Fibro Test Score [...] HCV Fibrosis Grade F2 Q [facility] NECROINFLAMM SCORE 0.14 Q [facility] NECROINFLAMM GRADE A0 Q [facility] NECROINFLAMM INTERP SEE NOTE [facility] Comment: (NOTE) no activity ActiTest Score (a) [...] A2 Macroglobulin 165 106 - 279 mg/dL [facility] Haptoglobin 140 43 - 212 mg/dL [facility] Apolipoprotein A1 120 101 - 198 mg/dL [facility] TOTAL BILIRUBIN 1.3(H) 0.2 - 1.2 mg/dL [facility] GGT 125(H) 3 - 65 U/L [facility] ALT 24 6 - 29 U/L [facility] Specimen/Product ID [id number] [facility] Comments (Chemistry) SEE NOTE [facility] Comment: (NOTE) The reliability of results is dependent on compliance with the preanalytical and analytical conditions recommended by [facility]. The tests have to be deferred for: [...] The performance characteristics have been determined by [facility]. It has not been cleared or approved by the U.S. Food and Drug Administration. Performance characteristics refer to the analytical performance of the test. [employer] the associated logo, Quarterly and all associated [employer] martinez are the registered trademarks of [employer]. All third republican martinez - (R) and (TM) - are the property of their respective owners. (C) 2226-1777 [employer]. All rights reserved. Blood 08/09/2025 3:32 PM EDT 08/09/2025 3:50 PM EDT us Jaimee Coats TRAINING ASSOCIATE LAB BLOOD BKR ORDERABLES F inal Result [facility] [address] [place] [address], [facility] [phone] * Vywht-0-tkpyixoydxq phenotyping (08/09/2025 3:32 PM EDT) Pathologist [facility] ALPHA 1 ANTITRYPSIN 141 100 - 190 mg/dL [facility] [address] Comment: (NOTE) ADDITIONAL INFORMATION Method: Nephelometry A1A PHENOTYPE MM bands [facility] Comment: (NOTE) A single M isoform is detected. In the context of a normal isfty-3-vfcicpzrlqe concentration, this is consistent with an MM phenotype. ADDITIONAL INFORMATION Method: Isoelectric Focusing, This assay identifies the phenotype of the circulating luvpd-0-bhrutfxfscw (A1A) protein. If the patient is on replacement therapy or has been recently transfused, the phenotype will detect patient and replacement or transfused plasma A1A protein. This test also cannot detect a null allele which could be responsible for an A1A deficiency. Blood 08/09/2025 3:32 PM EDT 08/09/2025 3:50 PM EDT Jaimee Coats [facility] LAB BLOOD ORDERABLES Final Result [facility] [address] [place] [address] * (ABNORMAL) LFTs (hepatic panel) (08/09/2025 3:32 PM EDT) Only the most recent of2 resultswithin the time period is included. Pathologist [facility] ALKALINE PHOSPHATASE 113 39 - 117 U/L [facility] TOTAL BILIRUBIN 1.2 0.0 - 1.2 mg/dL [facility] DIRECT BILIRUBIN 0.4(H) 0.0 - 0.2 mg/dL [facility] Bilirubin (Indirect) 0.8 0 - 1.5 mg/dL [facility] AST 31 0 - 37 U/L [facility] ALT 24 0 - 40 U/L [facility] TOTAL PROTEIN 7.5 6.5 - 8.0 g/dL [facility] ALBUMIN 4.6 3.9 - 4.8 g/dL [facility] GLOBULIN 2.9 1 - 4.8 g/dL [facility] A/G Ratio 1.59 1.00 - 4.80 RATIO [facility] Blood 08/09/2025 3:32 PM EDT 08/09/2025 3:49 PM EDT Jaimee Coats [facility] LAB BLOOD BKR ORDERABLES F inal Result Performing Organization Address [facility]/ZIP Co de Phone Number [address] [address] * Hepatitis C antibody, qualitative (08/09/2025 3:32 PM EDT) HCV NON-REACTIV E NON-REACTI VE [facility] Blood 08/09/2025 3:32 PM EDT 08/09/2025 3:49 PM EDT Jaimee Coats [facility] LAB BLOOD BKR ORDERABLES E dited Result - Final Performing Organization Address [facility]/ZIP Co de Phone Number [address] [address] * Tissue transglutaminase IgA (08/09/2025 3:32 PM EDT) TTG IGA ANTIBODY 1.3 <4.0 (Negative) U/mL [facility]PATH [address] Blood 08/09/2025 3:32 PM EDT 08/09/2025 3:50 PM EDT Jaimee Coats [facility] LAB BLOOD BKR ORDERABLES F inal Result [facility]PATH [address] [place] [address] * Ceruloplasmin (08/09/2025 3:32 PM EDT) [facility] CERULOPLASMIN 27 20 - 60 mg/dL [facility] Blood 08/09/2025 3:32 PM EDT 08/09/2025 3:49 PM EDT Jaimee Coats [facility] LAB BLOOD ORDERABLES Final Result Performing Organization Address City/[facility]/ZIP Co de Phone Number [address] [address] * AFP (non-maternal specimens) (08/09/2025 3:32 PM EDT) [facility] AFP (NON-MATERNAL) 2.5 <7.9 ng/mL [facility] Comment: Test Methodology Valerie [id number] Patient results determined by assays using different manufacturers or methods may not be comparable. Blood 08/09/2025 3:32 PM EDT 08/09/2025 3:49 PM EDT Jaimee Coats [facility] LAB BLOOD BKR ORDERABLES F inal Result Performing Organization Address [facility] Co de Phone Number [facility] [address] [place] [address] * Anti-Mitochondrial Antibody (AMA) (08/09/2025 3:32 PM EDT) [facility] MITOCHONDRIAL AB M2 <0.1 <0.1 (Negative) U [facility] Blood 08/09/2025 3:32 PM EDT 08/09/2025 3:50 PM EDT Jaimee Coats [facility] LAB BLOOD ORDERABLES Final Result [facility]PATH [address] [place] [address] * Smooth Muscle Antibody (08/09/2025 3:32 PM EDT) ANTI-SMOOTH MUSCLE AB Negative Negative [facility] Comment: (NOTE) Negative: No further testing will be performed ADDITIONAL INFORMATION This test was developed and its performance characteristics determined by [facility] in a manner consistent with CLIA requirements. This test has not been cleared or approved by the U.S. Food and Drug Administration. Blood 08/09/2025 3:32 PM EDT 08/09/2025 3:50 PM EDT Jaimee Coats [facility] LAB BLOOD ORDERABLES Final Result Performing Organization Address [facility] Co de Phone Number [facility] MED/PATH [address] [place] [address] * Hepatitis B surface antibody (08/09/2025 3:32 PM EDT) HBV SURFACE ANTIBODY Reactive [facility] Comment: Unvaccinated: Non Reactive Vaccinated: Reactive Blood 08/09/2025 3:32 PM EDT 08/09/2025 3:49 PM EDT Jaimee Coats [facility] LAB BLOOD BKR ORDERABLES E dited Result - Final Performing Organization Address [facility] Co de Phone Number [address] [address] * Hepatitis B surface antigen (08/09/2025 3:32 PM EDT) HBV SURFACE ANTIGEN NON-REACTI VE NON-REACTI VE [facility] Blood 08/09/2025 3:32 PM EDT 08/09/2025 3:49 PM EDT Jaimee Shaziaren Coats [facility] LAB BLOOD BKR ORDERABLES E dited Result - Final Performing Organization Address [facility]/ZIP Co de Phone Number [address] [address] * PT-INR (08/09/2025 3:32 PM EDT) Only the most recent of2 resultswithin the time period is included. PT 12.4 10.2 - 12.9 sec [facility] INR 1.0 0.9 - 1.1 [facility] Comment:Therapeutic range fo r oral Vitamin K antagonists: 2.0-3.5 Blood 08/09/2025 3:32 PM EDT 08/09/2025 3:49 PM EDT Jaimee Coats [facility] LAB BLOOD BKR ORDERABLES F inal Result Performing Organization Address City/[facility]/ZIP Co de Phone Number [address] [address] * Antinuclear antibody (PATRICK) (08/09/2025 3:32 PM EDT) PATRICK SCREEN ON HEP 2 Negative Negative [facility] Blood 08/09/2025 3:32 PM EDT 08/09/2025 3:49 PM EDT Jaimee Coats [facility] LAB BLOOD BKR ORDERABLES F inal Result Performing Organization Address [facility]/ZIP Co de Phone Number [address] [address] * Hemoglobin A1c (08/09/2025 3:32 PM EDT) Only the most recent of2 resultswithin the time period is included. HEMOGLOBIN A1C 5.6 4.3 - 5.8 % [facility] Blood 08/09/2025 3:32 PM EDT 08/09/2025 9:06 PM EDT Jaimee Coats [facility] LAB BLOOD BKR ORDERABLES F inal Result Performing Organization Address City/[facility]/ZIP Co de Phone Number [address] [place] [address] * Immunoglobulin A (08/09/2025 3:32 PM EDT) IgA 299 70 - 400 mg/dL [facility] Blood 08/09/2025 3:32 PM EDT 08/09/2025 3:49 PM EDT us Jaimee Mccray Jorge L TRAINING ASSOCIATE LAB BLOOD BKR ORDERABLES F inal Result [facility] [address] [place] [address] * Comprehensive metabolic panel (07/22/2025 6:15 AM EDT) Only the most recent of2 resultswithin the time period is included. SODIUM 141 133 - 146 mmol/L [facility] POTASSIUM 3.8 3.3 - 5.1 mmol/L [facility] CHLORIDE 102 96 - 108 mmol/L [facility] CO2 28 21 - 35 mmol/L [facility] BUN 18 6 - 19 mg/dL [facility] CREATININE 0.60 0.5 - 1.5 mg/dL [facility] GLUCOSE 92 70 - 99 mg/dL [facility] ALBUMIN 4.2 3.9 - 4.8 g/dL [facility] TOTAL PROTEIN 6.6 6.5 - 8.0 g/dL [facility] CALCIUM 9.8 8.4 - 10.3 mg/dL [facility] ALKALINE PHOSPHATASE 110 39 - 117 U/L [facility] TOTAL BILIRUBIN 1.0 0.0 - 1.2 mg/dL [facility] AST 32 0 - 37 U/L [facility] ALT 27 0 - 40 U/L [facility] GLOBULIN 2.4 1 - 4.8 g/dL [facility] EGFR 103 >59 mL/min/1.7 3m2 [facility] Comment:Estimated glomerular filtration rate calculated using the CKD-EPI refit equation. ANION GAP 15 10 - 20 mmol/L [facility] Blood 07/22/2025 6:15 AM EDT 07/22/2025 8:25 AM EDT Bobbi Malone MD LAB BLOOD BKR ORDERABLES Final Result [address] [address] * (ABNORMAL) CBC (07/22/2025 6:15 AM EDT) Only the most recent of2 resultswithin the time period is included. WBC 6.07 4.00 - 11.00 K/uL [facility] RBC 4.27 4.00 - 5.20 M/uL [facility] HGB 12.5 12.0 - 16.0 g/dL [facility] HCT 38.9 36.0 - 46.0 % [facility] PLT 89(L) 150 - 450 K/uL [facility] Comment:Consistent with prev ious results. MCV 91.1 80.0 - 100.0 fL [facility] MCH 29.3 27.0 - 31.0 pg [facility] MCHC 32.1 32.0 - 36.0 g/dL [facility] RDW 13.3 11.5 - 14.5 % [facility] MPV 11.5 8.4 - 12.0 fL [facility] NRBC 0.00 0.00 /100 WBCs [facility] ABSOLUTE NRBC 0.00 0.00 K/uL [facility] Blood 07/22/2025 6:15 AM EDT 07/22/2025 8:25 AM EDT Bobbi Malone MD LAB BLOOD BKR ORDERABLES Final Result [address] [address] * (ABNORMAL) POCT Glucose (07/21/2025 4:27 PM EDT) Only the most recent of17 resultswithin the time period is included. Glucose, POCT 119(H) 70 - 100 mg/dL [facility] 07/21/2025 4:27 PM EDT 07/21/2025 4:29 PM EDT us Billie Khanna MD POINT OF CARE TEST ORDERABLES F inal Result Performing Organization Address [facility] Co de Phone Number [address] [address] * (ABNORMAL) Cortisol Stimulation (Baseline,30Min,60Min) (07/20/2025 5:38 AM EDT) Cortisol Baseline 2.1(L) 6.02 - 18.4 ug/dL [facility] Cortisol (30 min post ACTH) 17.8 6.02 - 18.4 ug/dL [facility] Cortisol 60 Min 21.2(H) 6.02 - 18.4 ug/dL [facility] Blood 07/20/2025 5:38 AM EDT 07/20/2025 6:45 AM EDT us Billie Khanna MD LAB BLOOD BKR ORDERABLES Final Result Performing Organization Address [facility] Co de Phone Number [address] [address] * ACTH (07/20/2025 5:38 AM EDT) ACTH 13 pg/mL [facility] Comment: (NOTE) REFERENCE VALUE 7.2-63 (a.m. collection) Blood 07/20/2025 5:38 AM EDT 07/20/2025 5:43 AM EDT us Billie Khanna MD LAB BLOOD BKR ORDERABLES Final Result [facility] [address] [place] [address] * (ABNORMAL) Cortisol AM (07/19/2025 5:34 AM EDT) CORTISOL AM 2.9(L) 6.02 - 18.4 ug/dL [facility] Blood 07/19/2025 5:34 AM EDT 07/19/2025 6:06 AM EDT us Billie Khanna MD LAB BLOOD BKR ORDERABLES Final Result [facility] [address] [place] [address] * MRI BRAIN WITHOUT CONTRAST (07/18/2025 9:07 [...] provided indication for this examination in Epic: *Transient ischemic attack (TIA) TECHNIQUE: MRI BRAIN [...] high sensitivity (07/18/2025 5:55 AM EDT) Pathologist [facility] CRP, HIGH SENSITIVITY 2.7 0.0 - 5.0 mg/L [facility] Comment: Interpretation: hsCRP level (mg/L) Relative Risk <1.0 Low 1.0 - 3.0 Average >3.0 High Neonates (0-3 weeks): 0.1 - 4.1 mg/L Children (2 months - 15 years): 0.1 - 2.8 mg/L Blood 07/18/2025 5:55 AM EDT 07/18/2025 6:18 AM EDT Bill Dalton DO LAB BLOOD BKR ORDERABLES Final Result [address] [address] * PTT (07/18/2025 5:55 AM EDT) APTT 32.2 25.1 - 36.5 sec [facility] Comment:APTT response to unf ractionated heparin concentrations between 0.3 and 0.7 IU/mL is typically 54.0-94.0 seconds in uncomplicated cases. The Anti-Xa assay is the preferred method. Blood 07/18/2025 5:55 AM EDT 07/18/2025 6:18 AM EDT us Bill Grachev DO LAB BLOOD BKR ORDERABLES Final Result [address] [address] * Sedimentation rate (ESR) (07/18/2025 5:55 AM EDT) ESR 27 0 - 30 mm/h [facility] Blood 07/18/2025 5:55 AM EDT 07/18/2025 6:18 AM EDT [facility] [place] [place] LAB BLOOD BKR ORDERABLES Final Result Performing Organization Address [facility] Co de Phone Number [address] [address] * (ABNORMAL) CBC and differential (07/18/2025 5:55 AM EDT) Only the most recent of2 resultswithin the time period is included. WBC 5.88 4.00 - 11.00 K/uL [facility] RBC 4.17 4.00 - 5.20 M/uL [facility] HGB 12.4 12.0 - 16.0 g/dL [facility] HCT 37.7 36.0 - 46.0 % [facility] PLT 92(L) 150 - 450 K/uL [facility] Comment:CONSISTENT WITH PREV IOUS MCV 90.4 80.0 - 100.0 fL [facility] MCH 29.7 27.0 - 31.0 pg [facility] MCHC 32.9 32.0 - 36.0 g/dL [facility] RDW 13.5 11.5 - 14.5 % [facility] MPV 10.8 8.4 - 12.0 fL [facility] NRBC 0.00 0.00 /100 WBCs [facility] ABSOLUTE NRBC 0.00 0.00 K/uL [facility] DIFF METHOD Auto [facility] NEUTS 42.5(L) 48.0 - 76.0 % [facility] LYMPHS 46.6(H) 18.0 - 41.0 % [facility] MONOS 6.6 4.0 - 11.0 % [facility] EOS 3.1 0.0 - 5.0 % [facility] BASOS 0.9 0.0 - 1.5 % [facility] Granulocytes, immature (%) 0.3 0.0 - 0.9 % [facility] ABSOLUTE NEUTS 2.50 1.92 - 7.60 K/uL [facility] ABSOLUTE LYMPHS 2.74 0.72 - 4.10 K/uL [facility] ABSOLUTE MONOS 0.39 0.16 - 1.10 K/uL [facility] ABSOLUTE EOS 0.18 0.00 - 0.50 K/uL [facility] ABSOLUTE BASOS 0.05 0.00 - 0.15 K/uL [facility] Granulocytes, immature 0.02 0.00 - 0.09 K/uL [facility] Blood 07/18/2025 5:55 AM EDT 07/18/2025 6:18 AM EDT us [facility] DO LAB BLOOD BKR ORDERABLES Final Result [address] [address] * TSH (07/18/2025 5:55 AM EDT) TSH 3.07 0.27 - 4.20 uIU/mL [facility] Blood 07/18/2025 5:55 AM EDT 07/18/2025 6:18 AM EDT us [email or web address] DO LAB BLOOD BKR ORDERABLES Final Result [address] [address] * Phosphorus (07/18/2025 5:55 AM EDT) PHOSPHORUS 4.0 2.7 - 4.5 mg/dL [facility] Blood 07/18/2025 5:55 AM EDT 07/18/2025 6:18 AM EDT us Bill Ceballoschev DO LAB BLOOD BKR ORDERABLES Final Result Performing Organization Address City/[facility]/ZIP Co de Phone Number [address] [address] * Magnesium (07/18/2025 5:55 AM EDT) Only the most recent of2 resultswithin the time period is included. MAGNESIUM 1.6 1.6 - 2.6 mg/dL [facility] Blood 07/18/2025 5:55 AM EDT 07/18/2025 6:18 AM EDT [facility] DO LAB BLOOD BKR ORDERABLES Final Result Performing Organization Address [facility] Co de Phone Number [address] [address] * (ABNORMAL) Lipid panel (07/18/2025 5:55 AM EDT) HDL 28 mg/dL [facility] Comment: Interpretation <40 mg/dL: Low HDL cholesterol (major risk factor for CHD) Greater than or equal to 60 mg/dL: High HDL cholesterol ( negative risk factor for CHD) HDL - cholesterol is affected by a number of factors, e.g. smoking, excerise, hormones, sex and age. CHOLESTEROL 88 0 - 240 mg/dL [facility] TRIGLYCERIDES 137 30 - 160 mg/dL [facility] LDL 33(L) 50 - 129 mg/dL [facility] Comment: LDL levels in terms of risk for coronary heart disease: <100 mg/dL: Optimal 100-129 mg/dL: Near or above optimal 130-159 mg/dL: Borderline high 160-189 mg/dL: High >190 mg/dL: Very High CARDIAC RISK RATIO 3.1(L) 3.3 - 4.4 C [facility] Blood 07/18/2025 5:55 AM EDT 07/18/2025 6:17 AM EDT us Bill Dalton DO LAB BLOOD BKR ORDERABLES Final Result [address] [address] * (ABNORMAL) Urinalysis w/reflex Urine Culture (07/18/2025 2:03 AM EDT) COLOR STRAW(A) Yellow [facility] CLARITY Clear [facility] GLUCOSE Negative Negative [facility] BILI Negative Negative [facility] KETONES Negative Negative [facility] SPECIFIC GRAVITY <1.005 1.005 - 1.030 [facility] BLOOD Negative Negative [facility] PH 6.0 5.0 - 8.0 [facility] Protein-UA Negative Negative [facility] NITRITE Negative Negative [facility] Leukocyte esterase, ur Negative Negative [facility] Urine (Urine) 07/18/2025 2:0 3 AM EDT 07/18/2025 7:13 AM EDT Jayme Ly PA-C LAB URINE ORDERABLES Final Re sult [address] [address] * XR Chest Portable (07/17/2025 5:40 PM EDT) Anatomical Region Laterality Modality Chest Computed Radiogr aphy 07/17/2025 5:42 PM EDT Impressions 07/17/2025 5:42 PM EDT No acute cardiopulmonary abnormality. Narrative 07/17/2025 5:42 PM EDT XR CHEST PORTABLE Referring clinician's provided indication for this examination in Epic: Weakness/Malaise COMPARISON: June 05, 2024 FINDINGS: Devices/Tubes/Lines: None. Lungs: Low bilateral lung volumes. No focal consolidation or pulmonary edema. Pleura: No pleural effusion or pneumothorax. Heart/Mediastinum: The size of the cardiomediastinal silhouette is within normal limits. Bones/Soft Tissues: No significant abnormality. Procedure Note Teri Hicks MD - 07/17/2025 XR CHEST PORTABLE Referring clinician's provided indication for this examination in [facility]:Weakness/Malaise COMPARISON: June 05, 2024 FINDINGS: Devices/Tubes/Lines: None. Lungs: Low bilateral lung volumes. No focal consolidation or pulmonaryedema. Pleura: No pleural effusion or pneumothorax. Heart/Mediastinum: The size of the cardiomediastinal silhouette is withinnormal limits. Bones/Soft Tissues: No significant abnormality. IMPRESSION: No acute cardiopulmonary abnormality. Jayme Ly PA-C IMG XR CHEST Final Result * CT [...] clinician's provided indication for this examination in [facility]: * Stroke/TIA, assess intracranial arteries TECHNIQUE: * [...] edited the report originally createdby Lyubov Tierney. us Jayme S Ly PA-C IMG CT HEAD/NECK Final Result * CT PELVIS (BONY PELVIS) WITHOUT CONTRAST (07/17/2025 5:18 PM EDT) Anatomical Region Laterality Modality Pelvis Computed Tomogra phy 07/17/2025 5:20 PM EDT Impressions 07/17/2025 5:31 PM EDT 1. No fracture. Narrative 07/17/2025 5:[address] PELVIS (BONY PELVIS) WITHOUT CONTRAST Referring clinician's provided indication for this examination in [facility]: * Pelvis pain, stress fracture suspected, neg [...] clinician's provided indication for this examination in [facility]: *Pelvis pain, stress fracture suspected, neg xray TECHNIQUE: Multidetector-row CT of the bony pelvis, without intravenouscontrast using dose-modulation techniques. Images were reconstructed inthe axial, coronal, and sagittal planes. COMPARISON: CT ABDOMEN/PELVIS WITH CONTRAST FINDINGS: Bones and Joints: No fracture. Normal alignment. No effusion. Soft Tissues: Normal. IMPRESSION: 1. No fracture. us Jayme Ramires Malachi PA-C IMG CT XSPECIALTY ORDERABLES Final Result * Troponin (07/17/2025 5:07 PM EDT) Only the most recent of2 resultswithin the time period is included. Troponin-T, HS Gen5 <6 0 - 9 ng/L [facility] Blood 07/17/2025 5:07 PM EDT 07/17/2025 5:13 PM EDT Jayme PRINCE-C LAB BLOOD BKR ORDERABLES Anushka l Result [address] [address] * NT-proBNP (07/17/2025 4:12 PM EDT) NT-PROBNP <36 0 - 125 pg/mL [facility] Blood 07/17/2025 4:12 PM EDT 07/17/2025 4:22 PM EDT Jayme PRINCE-C LAB BLOOD BKR ORDERABLES Anushka l Result Performing Organization Address [facility] Co de Phone Number [address] [address] * (ABNORMAL) Basic metabolic panel (07/17/2025 4:12 PM EDT) SODIUM 139 133 - 146 mmol/L [facility] CHLORIDE 103 96 - 108 mmol/L [facility] POTASSIUM 3.9 3.3 - 5.1 mmol/L [facility] CO2 25 21 - 35 mmol/L [facility] BUN 23(H) 6 - 19 mg/dL [facility] CREATININE 0.50 0.5 - 1.5 mg/dL [facility] GLUCOSE 79 70 - 99 mg/dL [facility] CALCIUM 9.6 8.4 - 10.3 mg/dL [facility] EGFR 107 >59 mL/min/1.7 3m2 [facility] Comment:Estimated glomerular filtration rate calculated using the CKD-EPI refit equation. ANION GAP 15 10 - 20 mmol/L [facility] Blood 07/17/2025 4:12 PM EDT 07/17/2025 4:22 PM EDT Jayme PRINCE-C LAB BLOOD BKR ORDERABLES Anushka l Result [address] [address] * ECG 12-LEAD (07/17/2025 3:58 PM EDT) Ventricular Rate EKG/MIN 62 BPM [facility] Atrial Rate 62 BPM [facility] RI Interval 188 ms [facility] QRS Duration 92 ms [facility] QT Interval 466 ms [facility] QTC Interval 472 ms [facility] P Walters 29 degrees [facility] R Wave Walters -23 degrees [facility] T Wave Walters 19 degrees [facility] 07/17/2025 3:58 PM EDT 07/19/2025 7:38 AM EDT Narrative [facility] - 07/19/2025 7:39 AM EDT Normal sinus rhythm Normal ECG When compared with ECG of 12-Nov-2024 11:12, Nonspecific T wave abnormality no longer evident in Anterior leads Confirmed by Jason Montilla ([id number]) on 07/19/2025 7:38:57 AM us Jayme Ly PA-C ECG ORDERABLES Final Result [facility] * XR Tibia Fibula 2 Views [...] the ankle. Noother acute osseous abnormality. ATTESTATION: IAnnabella as teaching physician, have reviewedthe images for this case and if necessary edited the report originallycreated by Sonali Wilkerson. Dex Gardner MD IMG XR LOWER EXTREMITY Anushka l Result * XR ANKLE 3 OR MORE VIEWS (RIGHT) (07/16/2025 4:05 PM EDT) Anatomical Region Laterality Modality Ankle Right Computed Radiogr aphy 07/16/2025 5:1 1 PM EDT Impressions 07/16/2025 5:26 PM EDT Subtle lucency through the distal fibula, seen only on the frontal view, questionable nondisplaced fracture. Soft tissue swelling of the ankle. No other acute osseous abnormality. ATTESTATION: IAnnabella as teaching physician, have reviewed the images [...] PM EDT No fracture or dislocation. ATTESTATION: IAnnabella as teaching physician, have reviewed the images for this case and if necessary edited the report originally created by Sonali Wilkerson. Narrative 07/16/2025 5:30 PM EDT XR FEMUR 2 OR MORE VIEWS (RIGHT) Referring clinician's provided indication for this examination in Epic: Pain; S/P Fall COMPARISON: None FINDINGS: No fracture. Normal alignment. No lytic or blastic lesion. Mild degenerative changes of the hip and knee without dislocation. Procedure Note Annabella Zamudio MD, PhD - 07/16/2025 XR FEMUR 2 OR MORE VIEWS (RIGHT) Referring clinician's provided indication for this examination in Epic:Pain; S/P Fall COMPARISON: None FINDINGS: No fracture. [...] EDT No displaced fracture or dislocation. ATTESTATION: IAnnabella as teaching physician, have reviewed the images for this case and if necessary edited the report originally created by Sonali Wilkerson. Narrative 07/16/2025 5:23 PM EDT XR PELVIS 1-2 VIEW Referring clinician's provided indication for this examination in [facility]: Pain COMPARISON: CT ABDOMEN/PELVIS WITH CONTRAST FINDINGS: [...] IMG XR PELVIS Final Resul t * ENDOSCOPY, COLON (10/07/2024 3:55 PM EST) Narrative Transcriptions Riley Bedolla MD - 10/07/2024 3:55 PM EST [facility] Patient Name: Lindsey Lofton Attending MD:: RILEY BEDOLLA MD, Procedure Date: 10/07/2024 3:55 PM Date of : 1965 Age: 59 Admit Type: Outpatient Gender: Female Room: [place] [address] Referring MD: Shanice Jones Exam Type: Colonoscopy [...] monitored continuously. The Olympus adult variable colonoscope [id number] #[id number] was introduced through the anus and [...] 3:55 PM Procedure Code(s): --- Professional --- 84069, Colonoscopy, flexible; with removal of tumor(s), polyp(s), or other lesion(s) by snare technique --- Technical --- 61027, Colonoscopy, flexible; with removal of tumor(s), polyp(s), or other lesion(s) by snare technique CPT copyright 2021 [employer]. All rights reserved. The codes documented in this report are preliminary and upon production engineer track reviewmay be revised to meet current compliance requirements. Procedure Date: 10/07/2024 3:55:[address] [place] [id number] us Shanice Jones MD GI PROCEDURE ORDERABLES Final Result * Fecal immunochemical test x1 (FIT) (07/28/2024 6:11 PM EDT) Immuno Fecal Occult Negative Negative [facility] Stool (Stool) 07/28/2024 6: 11 PM EDT 07/28/2024 6:13 PM EDT Jaimee Coats CNP LAB BODY FLUIDS AND STOOL ORDERABLES Final Result [address] [address] from Last 3 Months or Most Recently Relevant to Health Maintenance Insurance [facility] C[employer] [facility] [address] [place] [address] [place] [address] [place] [address] [place] [address] [place] [address] [place] [address] C3 [employer] [facility] C3 ACO [facility] C3 ACO Advance Directives For more information, please contact: [phone] (9AM - 5PM [facility], Saturday-Saturday) Documents on File Type Date Recorded Patient Analytic Manager Expl anation Healthcare Proxy 07/20/2021 12:54 PM * Full Code (Latest Code Status on File) Date Activated Date Inactivated Comments 07/18/2025 12:02 AM Question Answer Comments Code Status Confirmed With: Patient Code Status Communicated To: Inpatient Attending Healthcare Agents on File Name Relationship Healthcare Agent [facility] p Communication Nick Monge .Primary Health Care Agent (Proxy form on file) Care Teams Inoculator Relationship Specialty Start Date End Date Shanice Jones MD [address] [place] [id number] PCP - General Family Medicine 07/17/25 Additional Source Comments The information contained in this document represents components of the legal health record. It is not the complete legal health record.[facility]
--- OUTSIDE RECORDS SUMMARY | 2025-09-17 08:44 | XMS_ITS | Encounter Summary ---
Author Organization [facility] Address [address] [place] [address] Phone Care Team Providers Care Housekeeping Worker Name Role Phone Shnaice Jones MD Primary Care Provider + Encounter Details Date Type Department Care Team (Late st Contact Info) Description 09/16/2025 Refill [facility] [address] [place] [address] Abena Buitrago, [place] [address] [place] [address] [email or web address] Social History Tobacco Use Types Packs/Day Years [...] as of this encounter Progress Notes * Abena Buitrago MA - 09/16/2025 1:24 PM EST Rx Care Gap Status - Instructions for Clinical Staff (prescriber discretion applies): > Mismatch review guide > N/a - No action needed Visit Info Last visit: 06/08/2025 Omari Potts DO - Endocrinology [facility] > Requested f/u: Return in about 6 months (around 12/09/2025) for Diabetes. Upcoming visit: 12/09/2025 Omari Potts DO - Endocrinology [facility] ACTIONS TAKEN BY Abena Buitrago MA - Criteria met. Diabetes Rx Protocol (on Diabetes Registry) - lancets Criteria met; renew for up to 12 months. Visit in the past 14 months: Yes Clinical criteria: - BMP within past year: Yes - A1c within past 6 months: Yes - Lipid panel within past year: Yes (LDL 33 on 07/18/2025) - Urine microalbumin within past year or on CLAUDIA/ARB: Yes Lab Results Component Value Date SODIUM 141 07/22/2025 POTASSIUM 3.8 07/22/2025 CHLORIDE 102 07/22/2025 CO2 28 07/22/2025 BUN 18 07/22/2025 CREATININE 0.60 07/22/2025 EGFR 103 07/22/2025 Lab Results Component Value Date Hemoglobin A1c 5.7 11/05/2024 HEMOGLOBIN A1C 5.6 08/09/2025 MICROALB/CRE RATIO 7.1 02/16/2025 URINE MICROALBUMIN 2.2 02/16/2025 Lab Results Component Value Date LDL 33 (L) 07/18/2025 HDL 28 07/18/2025 CARDIAC RISK RATIO 3.1 (L) 07/18/2025 TRIGLYCERIDES 137 07/18/2025 CHOLESTEROL 88 07/18/2025 documented in this encounter Plan of Treatment Upcoming Encounters Date Type Department Care Team (Late st Contact Info) Description 12/09/2025 3:20 PM EST Office Visit [facility] [address] [place] [address] Omari Potts DO [address] [place] [address] 01/31/2026 1:30 PM EDT Office Visit [facility] [address] [place] [address] Gabe Ramsey MD [address] [place] [address], [address] [place] [address] documented as of this encounter Visit Diagnoses Diagnosis Type 2 diabetes mellitus with hyperglycemia, with long-term current use of insulin documented in this encounter Care Teams Housekeeping Worker Relationship Specialty Start Date End Date Shanice Jones MD [address] [place] [address] PCP - General Family Medicine 07/17/25 documented as of this encounter Additional Source Comments The information contained in this document represents components of the legal health record. It is not the complete legal health record.[facility]
--- OUTSIDE RECORDS SUMMARY | 2025-09-17 08:44 | XMS_ITS | Encounter Summary ---
Author Organization [facility] Address [address] [place] [address] Phone Care Team Providers Care Paper Hanger Name Role Phone Shanice Jones MD Primary Care Provider + Shanice Jones MD Primary Care Provider + Encounter Details Date Type Department Care Team (Late st Contact Info) Description 04/01/2025 Procedure Pass [facility], [address] [address] Social History Tobacco Use Types Packs/Day Years [...] PM EST Office Visit [facility] [address] [place] [address] Omari Potts DO 22 [place] [address] 01/31/2026 1:30 PM EDT Office Visit [facility] Neurology 22 [place] [address] Gabe Ramsey MD [address] [place] [address], 2nd [place] [address] documented as of this encounter Visit Diagnoses Not on filedocumented in this encounter Care Teams Paper Hanger Relationship Specialty Start Date End Date Shanice Jones MD PCP - General 10/18/21 07/16/25 Shanice Jones MD [address] [place] [address] PCP - General Family Medicine 07/17/25 documented as of this encounter Additional Source Comments The information contained in this document represents components of the legal health record. It is not the complete legal health record.[facility]
--- OUTSIDE RECORDS SUMMARY | 2025-09-17 08:44 | XMS_ITS | Encounter Summary ---
Author Organization [employer] Address [address] 7[address] [place] [address] Care Team Providers Care Voltage Tester Name Role Phone Shanice Jones MD Primary Care Provider [phone] Sanaz Machuca Unavailable Reason for Visit * Reason Onset Date Comments Med Refill 02/14/2024 Encounter Details Date Type Department Care Team (Late st Contact Info) Description 02/14/2024 Telephone [facility] MEDICINE 230 [place], [place] [phone] Shanice Jones MD 230 [place], [place] [phone] Med Refill Social History Tobacco Use Types [...] EDT Patient has not received Clonazepam from [facility] provider. She has been receiving from Oliverio Perales [address] [place] [address], TC via P/I#[id number], reviewed with patient the above information and advised to call Dr Perales. Patient stated she understood. * Telephone Encounter - Nava Carmichale - 02/14/2024 11:42 AM EDT TC from pt requesting medication refill. Medications needing refill : clonazePAM (KlonoPIN) 1 MG tablet To be sent to: [facility] Pharmacy documented in this encounter Plan of Treatment Not on file documented as of this encounter Visit Diagnoses Not on filedocumented in this encounter Care Teams Voltage Tester Relationship Specialty Start Date End Date Shanice Jones MD [address] [place] [address] PCP - General Family Medicine 12/22/20 Sanaz Machuca 07/19/25 07/23/25 Cary Alonzo Blood Splatter AnalystWelding Lead Burner 08/26/24 Himanshu Hayes 12/26/24 09/05/25 Olamide Buitrago Blood Splatter AnalystWelding Lead Burner 08/11/25 Morenita 08/26/25 documented as of this encounter
--- OUTSIDE RECORDS SUMMARY | 2025-09-17 08:44 | XMS_ITS | Encounter Summary ---
Author Organization [facility] Address [address] [place] [address] Phone Care Team Providers Care Public Employment Mediator Name Role Phone Malaika Moeller MD Primary Care Provider [phone] Shanice Jones MD Primary Care Provider + Shanice Jones MD Primary Care Provider + Encounter Details Date Type Department Care Team (Late st Contact Info) Description 07/19/2021 Procedure Pass [facility] [address] [place] [address] Social History Tobacco Use Types Packs/Day Years [...] 3:20 PM EST Office Visit [facility] [address] [place] [address] [place] [address] Omari Potts DO [address] [place] [address] 01/31/2026 1:30 PM EDT [facility] 22 [place] [address] Gabe Ramsey MD 22 [facility], 2nd [place] [address] documented as of this encounter Visit Diagnoses Not on filedocumented in this encounter Additional Health Concerns Infection Onset Date Last Indicated Resolved Time CoV-Risk 02/20/2022 02/20/2022 03/03/2022 1:24 AM EDT CoV-Risk 06/05/2024 06/05/2024 06/16/2024 1:22 AM EDT documented as of this encounter Care Teams Public Employment Mediator Relationship Specialty Start Date End Date Malaika Moeller MD [address] [address] PCP - General Family Medicine 06/05/21 10/17/21 Shanice Jones MD [address] [place] [address] PCP - General 10/18/21 07/16/25 Shanice Jones MD [address] [place] [address] PCP - General Family Medicine 07/17/25 documented as of this encounter Additional Source Comments The information contained in this document represents components of the legal health record. It is not the complete legal health record.[facility]
--- OUTSIDE RECORDS SUMMARY | 2025-09-17 08:44 | XMS_ITS | Encounter Summary ---
Author Organization [facility] Address [address] [place] [address] Phone Care Team Providers Care Reprographics Associate Name Role Phone Shanice Jones MD Primary Care Provider + Encounter Details Date Type Department Care Team (Latest Contact Info) Description 08/10/2025 Transcribe Orders Virtual Department 30 [place] [address] Jaimee Coats, FASHION INTERN 10 [place] [address] [email or web address] Hepatic cirrhosis, unspecified hepatic cirrhosis type, unspecified [...] PM EST Office Visit [facility] [address] [place] [address] [place] [address] Omari Potts DO 22 [place] [address] 01/31/2026 1:30 PM EDT Office Visit [facility] Neurology [address] [place] [address] Gabe Ramsey MD 22 [facility], 2nd [place] [address] [email or web address] documented [...] Comparison: MRI CHOLANGIOPANCREATOGRAPHY (MRCP) WITH AND WITHOUT [id number]; CT ABDOMEN/PELVIS WITH CONTRAST ; US ABDOMENLIMITED [...] liver documented in this encounter Care Teams Reprographics Associate Relationship Specialty Start Date End Date Shanice Jones MD [address] [place] [address] PCP - General Family Medicine 07/17/25 documented as of this encounter Additional Source Comments The information contained in this document represents components of the legal health record. It is not the complete legal health record.[facility]
--- OUTSIDE RECORDS SUMMARY | 2025-09-17 08:44 | XMS_ITS | Encounter Summary ---
Author Organization [facility] Address [address] [place] [address] Phone Care Team Providers Care Knotting Machine Operator Portable Name Role Phone Raad Lucas NP, Renetta Primary Care Provider Malaika Augustin MD Primary Care Provider [phone] Shanice Jones MD Primary Care Provider + Shanice Jones MD Primary Care Provider + Encounter Details Date Type Department Care Team (Late st Contact Info) Description 02/24/2021 Procedure [facility] [address] [place] [address] [place] [address] Social History Tobacco Use Types Packs/Day Years [...] PM EST Office Visit [facility] [address] [place] [address] [place] [address] Omari Potts DO [address] [place] [address] 01/31/2026 1:30 PM EDT Office Visit [facility] Neurology 22 [place] [address] Gabe Ramsey MD 22 [facility], 2nd [place] [address] [email or web address] documented as of this encounter Visit Diagnoses Not on filedocumented in this encounter Additional Health Concerns Infection Onset Date Last Indicated Resolved Time CoV-Risk 02/20/2022 02/20/2022 03/03/2022 1:2 4 AM EDT CoV-Risk 06/05/2024 06/05/2024 06/16/2024 1:22 AM EDT documented as of this encounter Care Teams Knotting Machine Operator Portable Relationship Specialty Start Date End Date Renetta Shankar V MEAT LUGGER PCP - General 07/08/20 06/04/21 Malaika Moeller MD [address] [address] PCP - General Family Medicine 06/05/21 10/17/21 Shanice Jones MD [address] [place] [address] PCP - General 10/18/21 07/16/25 Shanice Jones MD [address] [place] [address] PCP - General Family Medicine 07/17/25 documented as of this encounter Additional Source Comments The information contained in this document represents components of the legal health record. It is not the complete legal health record.[facility]
--- OUTSIDE RECORDS SUMMARY | 2025-09-17 08:44 | XMS_ITS | Encounter Summary ---
Author Organization [facility] Address [address] [place] [address] Phone Care Team Providers Care Work Station Support Specialist Name Role Phone Shanice Jones MD Primary Care Provider + Shanice Jones MD Primary Care Provider + Reason for Referral * MRI/CAT Scan - Closed Specialty Diagnoses / Procedures Referred By Contdea t Referred To Contact Radiology Diagnoses Elevated LFTs Procedures MRI Cholangiopancreatography (MRCP) Jaimee Coats CNP Phone: tel: fax: [email or web address] Referral ID Status Reason Start Date Expiration Date Visits Re quested Visits Authorized [id number] Closed 04/08/2025 04/08/2026 1 1 Encounter Details Date Type Department Care Team (Latest Contact Info) Description 04/01/2025 Transcribe Orders Virtual Department 30 [place] [address] Jaimee Coats CNP 10 [place], [place] [phone] [email or web address] Elevated LFTs (Primary Dx) Social History Tobacco [...] 3:20 PM EST Office Visit [facility] [place] [address] Omari Potts DO [address] [place] [address] 01/31/2026 1:30 PM EDT Office Visit [facility] Neurology [address] [place] [address] Gabe Ramsey MD [address] [place] [address], 2nd [place] [address] documented as of this encounter Results * MRI CHOLANGIOPANCREATOGRAPHY (MRCP) WITH AND WITHOUT CONTRAST (04/25/2025 12:27 PM EDT) [facility] [employer] GLAZER COMMENT Follow-up abdominal MRI in 6 months, or as clinically appropriate. [facility] Anatomical Region Laterality Modality Pancreas, Biliary Magnetic [...] initiated on 05/03/2025 9:02 AM, Message ID [id number]. Narrative 05/03/2025 9:03 AM EDT MRI CHOLANGIOPANCREATOGRAPHY [...] was initiated on 05/03/2025 9:02 AM,Message ID [id number]. Jaimee Coats GEOLOGIST IMG MR ABDOMEN Final Resu lt documented in this encounter Visit Diagnoses Diagnosis Elevated LFTs- Primary Other abnormal blood chemistry Elevated LFTs Other abnormal blood chemistry documented in this encounter Care Teams Work Station Support Specialist Relationship Specialty Start Date End Date Shanice Jones MD PCP - General 10/18/21 07/16/25 Shanice Jones MD 230 [place] [address] PCP - General Family Medicine 07/17/25 documented as of this encounter Additional Source Comments The information contained in this document represents components of the legal health record. It is not the complete legal health record.[facility]
--- OUTSIDE RECORDS SUMMARY | 2025-09-17 08:44 | XMS_ITS | Encounter Summary ---
Author Organization [facility] Address [address] [place] [address] Phone Care Team Providers Care Food Or Baggage Handling Rampman Name Role Phone Raad Lucas NP, Renetta Primary Care Provider Malaika Augustin MD Primary Care Provider [phone] Shanice Jones MD Primary Care Provider + Shanice Jones MD Primary Care Provider + Encounter Details Date Type Department Care Team (Latest Contact Info) Description 02/24/2021 Ancillary Orders [facility] [address] [place] [address] Ernie Portillo, DO [address] [place] [address] Chest pain, cardiac Social History Tobacco Use [...] PM EST Office Visit [facility] [address] [place] [address] Omari Potts DO [address] [place] [address] 01/31/2026 1:30 PM EDT [facility] [address] [place] [address] [place] [address] Gabe Ramsey MD 22 [facility], 2nd [place] [address] [email or web address] documented as of this encounter Results * [...] atrial complexes No significant arrhythmias noted Result [facility] Ernieroxane Kumarjose OBRI[facility] ORDERABLE S Final Result documented in this encounter Visit Diagnoses Diagnosis Chest pain, cardiac Chest pain, cardiac documented in this encounter Additional Health Concerns Infection Onset Date Last Indicated Resolved Time CoV-Risk 02/20/2022 02/20/2022 03/03/2022 1:24 AM EDT CoV-Risk 06/05/2024 06/05/2024 06/16/2024 1:22 AM EDT documented as of this encounter Care Teams Food Or Baggage Handling Rampman Relationship Specialty Start Date End Date Renetta Shankar NP PCP - General 07/08/20 06/04/21 Malaika Moeller MD 15 [facility] [place]. [address] [place] [address] [email or web address] PCP - General Family Medicine 06/05/21 10/17/21 Shanice Jones MD [address] [address] PCP - General 10/18/21 07/16/25 Shanice Jones MD [address] [place] [address] PCP - General Family Medicine 07/17/25 documented as of this encounter Additional Source Comments The information contained in this document represents components of the legal health record. It is not the complete legal health record.[facility]
--- OUTSIDE RECORDS SUMMARY | 2025-09-17 08:44 | XMS_ITS | Encounter Summary ---
Author Organization [facility] Address [address] [facility] 7t [place] [address] Care Team Providers Care Pigment Weigher Name Role Phone Shanice Jones MD Primary Care Provider [phone] Sanaz Machuca Unavailable Reason for Referral * Consultation (Routine) - Closed Specialty Diagnoses / Procedures Referred By Contac t Referred To Contact Rheumatology Diagnoses Spinal arthritis Shanice Jones MD 230 [place] [address] Phone: tel: fax: [facility] [address] Phone: tel: fax: Referral ID Status Reason Start Date Expiration Date V isits Requested Visits Authorized [id number] Closed Specialty Services Required 04/03/2024 04/03/2025 1 1 Encounter Details Date Type Department Care Team (Late st Contact Info) Description 04/03/2024 Orders Only [facility] MEDICINE 230 [place], [place] [phone] Shanice Jones MD [address] [place], [place] [phone] Spinal arthritis (Primary Dx) Social History Tobacco [...] EDT) Sodium 140 135 - 145 mmol/L [facility] Potassium 4.2 3.3 - 5.1 mmol/L [facility] Chloride 105 96 - 108 mmol/L [facility] Carbon Dioxide 26 22 - 29 mmol/L [facility] Anion Gap 13 12 - 20 [facility] Urea Nitrogen (BUN) 17(H) 9 - 16 mg/dL [facility] Creatinine, Serum 0.84 0.5 - 1.4 mg/dL [facility] Creatinine Clr Calc Pharmacy 75.7 [facility] Comment:Provided height and weight: 160.02 cm,87.543 kg.eGFR (calculated from the MDRD study equation) and eCrCl(calculated from the Cockcroft-Gault equation) are based ondifferent parameters and may not yield comparable results.If eCrCl result is absurd, please check patient'sheight/weight. Estimated Glomerular Filt Rate >60 [facility] Comment:NOTE: For -Am erican individuals, multiply the result by 1.210.Chronic Kidney Disease: Estimated GFR < 60 mL/min/1.99n3Ahfhst Kidney Disease: Estimated GFR < 15 mL/min/1.73m2 Glucose 99 60 - 115 mg/dL [facility] Calcium 10.6(H) 8.4 - 10.2 mg/dL [facility] Bilirubin, Total 1.3(H) 0.0 - 1.0 mg/dL [facility] Aspartate Amino Transferase 52(H) 5 - 31 U/L [facility] Alanine Aminotransferase 45(H) 0 - 31 U/L [facility] Total Protein 7.7 6.5 - 8.0 g/dL [facility] Albumin Level 4.3 3.5 - 5.0 g/dL [facility] Alkaline Phosphatase 130(H) 39 - 117 U/L [facility] 06/15/2024 4:43 PM EDT 06/15/2024 4:47 PM EDT us Generic External Data Provider LAB BLOOD ORDERAB LES Final Result Performing Organization Address [facility] Co de Phone Number [facility] [address] [place] [phone] * Partial Thromboplastin Time, Activated (APTT) (06/15/2024 4:43 PM EDT) Partial Thromboplastin Time 28.6 26.0 - 36.8 SEC [facility] Comment:For information rega rding the monitoring of direct thrombininhibitors, please refer to Pharmacy. 06/15/2024 4:43 PM EDT 06/15/2024 4:47 PM EDT Generic External Data Provider LAB BLOOD ORDERAB LES Final Result Performing Organization Address [facility] Co de Phone Number [facility] [address] [place] [phone] * Prothrombin Time-INR (06/15/2024 4:43 PM EDT) Prothrombin Time 12.2 11.1 - 13.3 SEC [facility] INTERNATIONAL NORM RATIO 1.0 0.9 - 1.1 [facility] Comment:INTERNATIONAL NORMAL IZED RATIO (INR) [...] ORDERAB LES Final Result Performing Organization Address [facility] Co de Phone Number [facility] [address] [place] [phone] * (ABNORMAL) CBC auto differential (06/15/2024 4:43 PM EDT) White Blood Count 8.1 4.8 - 10.8 X10*3/uL [facility] Red Blood Count 4.16(L) 4.20 - 5.50 X10*6/uL [facility] Hemoglobin 11.5(L) 12.0 - 16.0 g/dl [facility] Hematocrit 36.0(L) 37.0 - 47.0 % [facility] Mean Corpuscular Volume 86.5 80.0 - 98.0 fL [facility] Mean Corpuscular Hemoglobin 27.6 27.0 - 33.0 pg [facility] Mean Corpuscular HGB Conc 31.9 31.0 - 35.0 g/dl [facility] Red Cell Distribution Width 17.1(H) 11.0 - 16.0 % [facility] Platelet Count 105(L) 160 - 400 X10*3/uL [facility] Mean Platelet Volume 9.8 9.4 - 12.3 fL [facility] Neutrophils Percent Auto 56.5 45 - 73 % [facility] Imm Gran Pct Auto 0.2 0.0 - 0.4 % [facility] Lymphocytes Percent Auto 32.4 20 - 40 % [facility] Monocytes Percent Auto 6.8 2 - 11 % [facility] Eosinophils Percent Auto 3.2 0 - 4 % [facility] Basophils Percent Auto 0.9 0 - 2 % [facility] NRBC Pct Auto 0.0 0.0 - 0.2 /100WBC [facility] Neutrophils Absolute Auto 4.6 2.0 - 8.3 x10*3/uL [facility] Imm Gran Abs Auto 0.02 0.00 - 0.03 X10*3/uL [facility] Lymphocytes Absolute Auto 2.6 1.2 - 4.9 X10*3/uL [facility] Monocytes Absolute Auto 0.6 0.1 - 1.2 X10*3/uL [facility] Eosinophils Absolute Auto 0.3 0.0 - 0.4 X10*3/uL [facility] Basophils Absolute Auto 0.1 0.0 - 0.2 X10*3/uL [facility] NRBC Abs Auto 0.000 0.0 - 0.012 X10*3/uL [facility] 06/15/2024 4:43 PM EDT 06/15/2024 4:47 PM EDT us Generic External Data Provider LAB BLOOD ORDERAB LES Final Result [facility] [address] [place] [address] [phone] documented in this encounter Visit Diagnoses Diagnosis Spinal arthritis- Primary documented in this encounter Care Teams Pigment Weigher Relationship Specialty Start Date End Date Shanice Jones MD [address] [place] [address] PCP - General Family Medicine 12/22/20 Sanaz Machuca 07/19/25 07/23/25 Cary Alonzo Non Emergency Services Ambulance DriverClaims Supervisor 08/26/24 Himanshu Hayes 12/26/24 09/05/25 Olamide Buitrago Non Emergency Services Ambulance DriverClaims Supervisor 08/11/25 Morenita 08/26/25 documented as of this encounter
--- OUTSIDE RECORDS SUMMARY | 2025-09-17 08:44 | XMS_ITS | Encounter Summary ---
Author Organization [facility] Address [address] [place] [address] Phone Care Team Providers Care Solvent Plant Treater Name Role Phone Shanice Jones MD Primary Care Provider + Encounter Details Date Type Department Care Team (Latest Contact Info) Description 08/09/2025 Transcribe Orders [facility] Doris [address] 2nd Floor [place], [place] [phone] Jaimee Coats, TECHNICAL FELLOW [address] [place] [address] Need for hepatitis B screening test (Primary [...] 3:20 PM EST Office Visit [facility] [address] [place] [address] Omari Potts DO 22 [place] [address] 01/31/2026 1:30 PM EDT Office Visit [facility] Neurology [address] [place] [address] Gabe Ramsey MD 22 [facility], 2nd [place] [address] [email or web address] documented as of this encounter Results * PT-INR (08/09/2025 3:32 PM EDT) PT 12.4 10.2 - 12.9 sec [facility] INR 1.0 0.9 - 1.1 [facility] Comment:Therapeutic range fo r oral Vitamin K antagonists: 2.0-3.5 Blood 08/09/2025 3:32 PM EDT 08/09/2025 3:49 PM EDT us Jaimee Coats [facility] LAB BLOOD BKR ORDERABLES F inal Result [facility] [address] [place] [address] * (ABNORMAL) LFTs (hepatic panel) (08/09/2025 3:32 PM EDT) ALKALINE PHOSPHATASE 113 39 - 117 U/L [facility] TOTAL BILIRUBIN 1.2 0.0 - 1.2 mg/dL [facility] DIRECT BILIRUBIN 0.4(H) 0.0 - 0.2 mg/dL [facility] Bilirubin (Indirect) 0.8 0 - 1.5 mg/dL [facility] AST 31 0 - 37 U/L [facility] ALT 24 0 - 40 U/L [facility] TOTAL PROTEIN 7.5 6.5 - 8.0 g/dL [facility] ALBUMIN 4.6 3.9 - 4.8 g/dL [facility] GLOBULIN 2.9 1 - 4.8 g/dL [facility] A/G Ratio 1.59 1.00 - 4.80 RATIO [facility] Blood 08/09/2025 3:32 PM EDT 08/09/2025 3:49 PM EDT Jaimee Coats [facility] LAB BLOOD BKR ORDERABLES F inal Result Performing Organization Address [facility] Co de Phone Number [address] [address] * Hepatitis C antibody, qualitative (08/09/2025 3:32 PM EDT) HCV NON-REACTIV E NON-REACTI VE [facility] Blood 08/09/2025 3:32 PM EDT 08/09/2025 3:49 PM EDT Jaimee Coats [facility] LAB BLOOD BKR ORDERABLES E dited Result - Final Performing Organization Address [facility] Co de Phone Number [address] [address] * Hepatitis B surface antibody (08/09/2025 3:32 PM EDT) HBV SURFACE ANTIBODY Reactive [facility] Comment: Unvaccinated: Non Reactive Vaccinated: Reactive Blood 08/09/2025 3:32 PM EDT 08/09/2025 3:49 PM EDT Jaimee Coats [facility] LAB BLOOD BKR ORDERABLES E dited Result - Final Performing Organization Address [facility] Co de Phone Number [address] [address] * Hepatitis B surface antigen (08/09/2025 3:32 PM EDT) HBV SURFACE ANTIGEN NON-REACTI VE NON-REACTI VE [facility] Blood 08/09/2025 3:32 PM EDT 08/09/2025 3:49 PM EDT Jaimee Coats [facility] LAB BLOOD BKR ORDERABLES E dited Result - Final [address] [address] * Hemoglobin A1c (08/09/2025 3:32 PM EDT) HEMOGLOBIN A1C 5.6 4.3 - 5.8 % [facility] Blood 08/09/2025 3:32 PM EDT 08/09/2025 9:06 PM EDT us Jaimeekashif Mccray Jorge L [facility] LAB BLOOD BKR ORDERABLES F inal Result [address] [address] * (ABNORMAL) Liver fibrosis test (08/09/2025 3:32 PM EDT) Fibrosis score 0.49 [facility] Interpretation (Fibrosis) SEE NOTE [facility] Comment: (NOTE) moderate fibrosis Fibro Test Score [...] C NECROINFLAMM INTERP SEE NOTE [facility] Comment: (NOTE) no activity ActiTest Score [...] A2 Macroglobulin 165 106 - 279 mg/dL [facility] [employer] [facility] Haptoglobin 140 43 - 212 mg/dL [facility] [employer] [facility] Apolipoprotein A1 120 101 - 198 mg/dL [facility] [employer] [facility] TOTAL BILIRUBIN 1.3(H) 0.2 - 1.2 mg/dL [facility] GGT 125(H) 3 - 65 U/L [facility] ALT 24 6 - 29 U/L [facility] Specimen/Product ID [id number] [facility] Comments (Chemistry) SEE NOTE [facility]/ [employer] [facility] Comment: (NOTE) The reliability of results is dependent on compliance with the preanalytical and analytical conditions recommended by [employer] The tests have to be deferred for: [...] The performance characteristics have been determined by [employer] [place]. It has not been cleared or approved by the U.S. Food and Drug Administration. Performance characteristics refer to the analytical performance of the test. [employer], the associated logo, [employer] / ?.?? and all associated [employer] martinez are the registered trademarks of [employer]. All third republican martinez - (R) and (TM) - are the property of their respective owners. (C) [id number] [employer]. All rights reserved. Blood 08/09/2025 3:32 PM EDT 08/09/2025 3:50 PM EDT Jaimee Coats [facility] BLOOD BKR ORDERABLES F inal Result [facility] [address] [place] [address], [facility] [phone] * Ceruloplasmin (08/09/2025 3:32 PM EDT) CERULOPLASMIN 27 20 - 60 mg/dL [facility] Blood 08/09/2025 3:32 PM EDT 08/09/2025 3:49 PM EDT [facility] LAB BLOOD ORDERABLES Final Result Performing Organization Address City/[facility]/ZIP Co de Phone Number [address] [address] * Immunoglobulin A (08/09/2025 3:32 PM EDT) IgA 299 70 - 400 mg/dL [facility] Blood 08/09/2025 3:32 PM EDT 08/09/2025 3:49 PM EDT [facility] LAB BLOOD BKR ORDERABLES F inal Result Performing Organization Address City/[facility]/ZIP Co de Phone Number [facility] [address] [place] [address] * Tissue transglutaminase IgA (08/09/2025 3:32 PM EDT) TTG IGA ANTIBODY 1.3 <4.0 (Negative) U/mL [facility]PATH [address] Blood 08/09/2025 3:32 PM EDT 08/09/2025 3:50 PM EDT Jaimee Coats [facility] LAB BLOOD BKR ORDERABLES F inal Result Performing Organization Address [facility] Co de Phone Number [facility] MED/PATH [address] [place] [address] * Smooth Muscle Antibody (08/09/2025 3:32 PM EDT) Pathologist [facility] [place] ANTI-SMOOTH MUSCLE AB Negative Negative [facility] [address] Comment: (NOTE) Negative: No further testing will be performed ADDITIONAL INFORMATION This test was developed and its performance characteristics determined by [facility] in a manner consistent with CLIA requirements. This test has not been cleared or approved by the U.S. Food and Drug Administration. Blood 08/09/2025 3:32 PM EDT 08/09/2025 3:50 PM EDT Jaimee Coats [facility] LAB BLOOD ORDERABLES Final Result Performing Organization Address [facility] de Phone Number [facility]/PATH [address] [address] * Antinuclear antibody (PATRICK) (08/09/2025 3:32 PM EDT) Pathologist [facility] [place] PATRICK SCREEN ON HEP 2 Negative Negative [facility] Blood 08/09/2025 3:32 PM EDT 08/09/2025 3:49 PM EDT Jaimee Coats [facility] BLOOD BKR ORDERABLES F inal Result Performing Organization Address [facility] Co de Phone Number [facility] [address] [place] [address] * Anti-Mitochondrial Antibody (AMA) (08/09/2025 3:32 PM EDT) [facility] MITOCHONDRIAL AB M2 <0.1 <0.1 (Negative) U [facility] [address] Blood 08/09/2025 3:32 PM EDT 08/09/2025 3:50 PM EDT Jaimee Mccray Jorge L [facility] LAB BLOOD ORDERABLES Final Result Performing Organization Address City/[facility]/ZIP Co de Phone Number [facility] MED/PATH [address] [place] [address] * AFP (non-maternal specimens) (08/09/2025 3:32 PM EDT) [facility] AFP (NON-MATERNAL) 2.5 <7.9 ng/mL [facility] Comment: Test Methodology Valerie [id number] Patient results determined by assays using different manufacturers or methods may not be comparable. Blood 08/09/2025 3:32 PM EDT 08/09/2025 3:49 PM EDT [facility] LAB BLOOD BKR ORDERABLES F inal Result Performing Organization Address City/[facility]/ZIP Co de Phone Number [address] [address] * Bbbfd-5-sjuoskxcugf phenotyping (08/09/2025 3:32 PM EDT) [facility] ALPHA 1 ANTITRYPSIN 141 100 - 190 mg/dL [facility] [address] Comment: (NOTE) ADDITIONAL INFORMATION Method: Nephelometry A1A PHENOTYPE MM bands [facility] MED/PATH [address] Comment: (NOTE) A single M isoform is detected. In the context of a normal odccv-9-ficdobrwqpq concentration, this is consistent with an MM phenotype. ADDITIONAL INFORMATION Method: Isoelectric Focusing, This assay identifies the phenotype of the circulating cxrml-4-choqhjfvwaf (A1A) protein. If the patient is on replacement therapy or has been recently transfused, the phenotype will detect patient and replacement or transfused plasma A1A protein. This test also cannot detect a null allele which could be responsible for an A1A deficiency. Blood 08/09/2025 3:32 PM EDT 08/09/2025 3:50 PM EDT Jaimee Mccray Jorge L [facility] LAB BLOOD ORDERABLES Final Result [facility] [address] [place] [address] documented in this encounter Visit Diagnoses Diagnosis Need for hepatitis B screening test- Primary Liver lesion Other specified disorders of liver Hepatic cirrhosis, unspecified hepatic cirrhosis type, unspecified whether ascites present Gastroesophageal reflux disease without esophagitis Esophageal reflux documented in this encounter Care Teams Solvent Plant Treater Relationship Specialty Start Date End Date Shanice Jones MD [address] [place] [address] PCP - General Family Medicine 07/17/25 documented as of this encounter Additional Source Comments The information contained in this document represents components of the legal health record. It is not the complete legal health record.[facility]
--- OUTSIDE RECORDS SUMMARY | 2025-09-17 08:45 | XMS_ITS | Encounter Summary ---
Author Organization [employer] Address [address] [facility] 7t [place] [address] Care Team Providers Care Human Resources Intern Name Role Phone Shanice Jones MD Primary Care Provider [phone] Reason for Visit * Reason Onset Date Comments Pre Op 09/16/2025 Encounter Details Date Type Department Care Team ([facility] st Contact Info) Description 09/16/2025 Telephone [facility] MEDICINE [address] [place], [place] [phone] Shanice Jones MD [address] [place], [place] [phone] Pre Op Social History Tobacco Use Types Packs/Day Years [...] housing situation today? I have reggie sing 08/09/[address] you li [...] encounter Miscellaneous Notes * Telephone Encounter - Gutierrez Lofton - 09/16/2025 3:22 PM EST Date of Surgery: 11/12/25 Surgical procedure being done: Left Shoulder Arthroscopy Type of anesthesia: General Anesthesia Lab needed: Yes (Including A1C) EKG: Yes Surgeon's name: Ronni Teja Facility name: [facility] Surgeon's office number: [phone] Surgeon's office fax number: [phone] Contact name: Yanique documented in this encounter Plan of Treatment Not on file documented as of this encounter Visit Diagnoses Not on filedocumented in this encounter Additional Health Concerns Assessment Noted Time PHQ-9 Depression Total Score: 6 03/26/20 25 4:46 PM EDT documented as of this encounter Care Teams Human Resources Intern Relationship Specialty Start Date End Date Shanice Jones MD [address] [place] [address] PCP - General Family Medicine 12/22/20 Cary Alonzo Parts FinisherPractice Nurse 08/26/24 Olamide Buitrago Parts FinisherPractice Nurse 08/11/25 Morenita 08/26/25 documented as of this encounter
--- OUTSIDE RECORDS SUMMARY | 2025-09-17 08:45 | XMS_ITS | Encounter Summary ---
Author Organization [employer] Address [address] [facility] 7t [place] [address] Care Team Providers Care Resawyer Name Role Phone Shanice Jones MD Primary Care Provider [phone] Sanaz Machuca Unavailable Encounter Details Date Type Department Care Team (Late st Contact Info) Description 10/22/2024 Orders Only [facility] [address] [place] [address] Provider, MD Maurisio Social History Tobacco Use [...] on filedocumented in this encounter Care Teams Resawyer Relationship Specialty Start Date End Date Shanice Jones MD [address] [place] [address] PCP - General Family Medicine 12/22/20 Sanaz Machuca 07/19/25 07/23/25 Cary Alonzo Compensation SpecialistBenefit Specialist 08/26/24 Himanshu Hayes 12/26/24 09/05/25 Olamide Buitrago Compensation SpecialistBenefit Specialist 08/11/25 Morenita 08/26/25 documented as of this encounter
--- OUTSIDE RECORDS SUMMARY | 2025-09-17 08:45 | XMS_ITS | Encounter Summary ---
Author Organization [employer] Address [address] [facility] 7 [place] [address] Care Team Providers Care Loading Inspector Name Role Phone Shanice Jones MD Primary Care Provider [phone] Sanaz Machuca Unavailable Reason for Referral * Imaging (Routine) - Closed Specialty Diagnoses / Procedures Referred By Contac t Referred To Contact Radiology Diagnoses Chronic left shoulder pain Procedures MR Shoulder w/o Contrast Left Shanice Jones MD [address] [place] [address] Phone: tel: fax: [address] Phone: tel: fax: Referral ID Status Reason Start Date Expiration Date Visits Re quested Visits Authorized [id number] Closed 05/06/2025 05/06/2026 1 1 Encounter Details Date Type Department Care Team (Late st Contact Info) Description 05/06/2025 Orders Only [facility] MEDICINE [address] [place], [place] [phone] Shanice Jones MD [address] [place] [phone] Chronic left shoulder pain (Primary Dx) Social [...] PM EDT Narrative 05/22/2025 9:37 PM EDT [address] [address] Magnetic Resonance Report Signed Patient: Lindsey Wilson MR#: [id number] : 1965 Acct:[id number] Age/Sex: 60 / F ADM Date: 05/20/25 Loc: HO.MRI Attending Dr: Shanice Jones MD Ordering Physician: Shanice Jones Date of Service: 05/20/25 Procedure(s): MR shoulder LT wo con Accession Number(s): [id number] cc: Shanice Jones CLINICAL HISTORY: chronic pain [...] in OV> 05/22/252135 DD/ 34 TD/TT: 05/22/252134 Rip Tailer: Procedure Note Donotuseinterpreter, Image - 05/22/[address] [address] Magnetic Resonance Report Signed Patient: Lindsey Wilson MR#: [id number] : 1965Acct:[id number] Age/Sex: 60 / FADM Date: 05/20/25 Loc: HO.MRI Attending Dr: Shanice Jones MD Ordering Physician: Shanice Jones Date of Service: 05/20/25 Procedure(s): MR shoulder LT wo con Accession Number(s): [id number] cc: Shanice Jones CLINICAL HISTORY: chronic pain [...] in OV> 05/22/252135 DD/ 34 TD/TT: 05/22/252134 Rip Tailer: Shanice Jones MD IMG MRI PROCEDURES Edited Resu lt - Final documented in this encounter Visit Diagnoses Diagnosis Chronic left shoulder pain- Primary Pain in joint, shoulder region documented in this encounter Additional Health Concerns Assessment Noted Time PHQ-9 Depression Total Score: 6 03/26/20 4:46 PM EDT documented as of this encounter Care Teams Loading Inspector Relationship Specialty Start Date End Date Shanice Jones MD [address] [place] [address] PCP - General Family Medicine 12/22/20 Sanaz Machuca 07/19/25 07/23/25 Cary Alonzo Screw Machine OperatorSafety Associate 08/26/24 Himanshu Hayes 12/26/24 09/05/25 Olamide Buitrago Screw Machine OperatorSafety Associate 08/11/25 Morenita 08/26/25 documented as of this encounter
--- OUTSIDE RECORDS SUMMARY | 2025-09-17 08:45 | XMS_ITS | Encounter Summary ---
Author Organization [employer] Address [address] [facility] [address] 7t [place] [address] Care Team Providers Care Access Registrar Name Role Phone Shanice Jones MD Primary Care Provider [phone] Sanaz Machuca Unavailable Encounter Details Date Type Department Care Team (Late st Contact Info) Description 05/05/2025 Orders Only [facility] MEDICINE [address] [place], [place] [phone] Wanda Ivory MD [address] [place], [place] [phone] Neck pain (Primary Dx) Social History Tobacco [...] PM EDT Narrative 06/30/2025 5:29 PM EDT [place] [address] XRay Report Signed Patient: Lindsey Wilson MR#: [id number] : 1965 Acct:[id number] Age/Sex: 60 / F ADM Date: 06/30/25 Loc: HO.CT Attending Dr: Nick Lofton MD Ordering Physician: Wanda Ivory MD Date of Service: 06/30/25 Procedure(s): XR cervical spine 4V Accession Number(s): [id number] cc: Shanice Jones; Wanda Ivory MD EXAMINATION: [...] 06/30/25 1726 DD/ 1653 TD/TT: 06/30/25 1705 Journeyman Power Plant Operator: Procedure Note Donotuseinterpreter, Image - 06/30/2025 [place] [address] XRay Report Signed Patient: Lindsey Wilson MR#: [id number] : 1965Acct:[id number] Age/Sex: 60 / FADM Date: 06/30/25 Loc: HO.CT Attending Dr: Nick Lofton MD Ordering Physician: Wanda Ivory MD Date of Service: 06/30/25 Procedure(s): XR cervical spine 4V Accession Number(s): [id number] cc: Shanice Jones; Wanda Ivory MD EXAMINATION: [...] 06/30/25 1726 DD/ 1653 TD/TT: 06/30/25 1705 Journeyman Power Plant Operator: us Wanda Ivory MD IMG XR PROCEDURES Final Result documented in this encounter Visit Diagnoses Diagnosis Neck pain- Primary Cervicalgia documented in this encounter Additional Health Concerns Assessment Noted Time PHQ-9 Depression Total Score: 6 03/26/20 4:46 PM EDT documented as of this encounter Care Teams Access Registrar Relationship Specialty Start Date End Date Shanice Jones MD [address] [place] [address] PCP - General Family Medicine 12/22/20 Sanaz Machuca 07/19/25 07/23/25 Cary Alonzo Auto Parts Delivery DriverCathode Ray Tube Salvage Processor 08/26/24 Himanshu Caring 12/26/24 09/05/25 Olamide Buitrago Auto Parts Delivery DriverCathode Ray Tube Salvage Processor 08/11/25 Morenita 08/26/25 documented as of this encounter
--- OUTSIDE RECORDS SUMMARY | 2025-09-17 08:45 | XMS_ITS | Encounter Summary ---
Author Organization [employer] Address [address] [facility] 7t [place] [address] Care Team Providers Care Intelligence Applications Name Role Phone Shanice Jones MD Primary Care Provider [phone] Reason for Visit * Reason Onset Date Comments Durable Medical Equipment 08/26/2025 DME Re quest: Bedside Commode Encounter Details Date Type Department Care Team ([facility] st Contact Info) Description 08/26/2025 Telephone [facility] MEDICINE [address] [place], [place] [phone] Shanice Jones MD [address] [place], [place] [phone] Durable Medical Equipment (DME Request: Bedside Commode) [...] requesting a new scrip form [facility] chair documented in this encounter Plan of Treatment Not on file documented as of this encounter Visit Diagnoses Not on filedocumented in this encounter Additional Health Concerns Assessment Noted Time PHQ-9 Depression Total Score: 6 03/26/20 25 4:46 PM EDT documented as of this encounter Care Teams Intelligence Applications Relationship Specialty Start Date End Date Shanice Jones MD [address] [place] [address] PCP - General Family Medicine 12/22/20 Cary Alonzo Group Exercise ManagerManager Ct 08/26/24 Himanshu Caring 12/26/24 09/05/25 Olamide Buitrago Group Exercise ManagerManager Ct 08/11/25 Morenita 08/26/25 documented as of this encounter
--- OUTSIDE RECORDS SUMMARY | 2025-09-17 08:45 | XMS_ITS | Encounter Summary ---
Author Organization [employer] Address [address] [facility] 7t [place] [address] Care Team Providers Care Sheet Metal Layout Worker Name Role Phone Shanice Jones MD Primary Care Provider [phone] Sanaz Machuca Unavailable Encounter Details Date Type Department Care Team (Late st Contact Info) Description 10/13/2024 Orders Only [facility] [address] [place] [address] Provider, MD Maurisio Social History Tobacco Use [...] on filedocumented in this encounter Care Teams Sheet Metal Layout Worker Relationship Specialty Start Date End Date Shanice Jones MD [address] [place] [address] PCP - General Family Medicine 12/22/20 Sanaz Machuca 07/19/25 07/23/25 Cary Alonzo Medical Records Field TechnicianMelt Helper 08/26/24 Himanshu Hayes 12/26/24 09/05/25 Olamide Buitrago Medical Records Field TechnicianMelt Helper 08/11/25 Morenita 08/26/25 documented as of this encounter
--- OUTSIDE RECORDS SUMMARY | 2025-09-17 08:45 | XMS_ITS | Encounter Summary ---
Author Organization [employer] Address [address] [facility] 7t [place] [address] Care Team Providers Care Corporate Physical Security Supervisor Name Role Phone Shanice Jones MD Primary Care Provider [phone] Reason for Visit * Reason Onset Date Comments Durable Medical Equipment 09/01/2025 Encounter Details Date Type Department Care Team ([facility] st Contact Info) Description 09/01/2025 Telephone [facility] MEDICINE [address] [place], [place] [phone] Shanice Jones MD 230 [place], [place] [phone] Durable Medical Equipment Social History Tobacco Use [...] documented as of this encounter Care Teams Corporate Physical Security Supervisor Relationship Specialty Start Date End Date Shanice Jones MD [address] [place] [address] PCP - General Family Medicine 12/22/20 Cary Alonzo Campus ManagerAdministrative Services Manager 08/26/24 Himanshu Caring 12/26/24 09/05/25 Olamide Buitrago Campus ManagerAdministrative Services Manager 08/11/25 Ave[place] 08/26/25 documented as of this encounter
--- OUTSIDE RECORDS SUMMARY | 2025-09-17 08:45 | XMS_ITS | Clinical Summary ---
Author Organization [employer] Address [address] [facility] [address] [place] [address] Care Team Providers Care Telephone Operator Name Role Phone Shanice Jones MD Primary Care Provider [phone] Allergies Active Allergy Reactions Criticality Noted Date [...] 3 (three) months. 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 Will extend PT-1 to her other providers [...] artery provides dominant supply to the right INDUSTRIAL ARTS TEACHER.Nondominant right vertebral artery is diminutive throughout, not [...] Pt has had difficult maintaining appointments at [facility] wiwt Dr Song, would like to come close to where she lives at [facility] Exercise counseling 02/13/2023 Left ankle sprain 11/20/2022 Assessment & Plan (02/13/2023 3:37 PM EDT): Continue followup with ortho and PT at [facility] Did gait training at PT as she says it is difficult to walk, even with a walker and complains of frequent falls Awaiting sabrina , which translates from Telugu to braces Assessment & Plan (11/20/2022 10:28 AM EST): Continue followup with ortho and PT at [facility] Request gait training at PT as she says it is difficult to walk, even with a walker and complains of frequent falls Malignant neoplasm of endometrium (CMS/HCC) 07/2023 Assessment & Plan (09/04/2024 12:53 PM EDT): No AUB currently Assessment & Plan (11/20/2022 10:25 AM EST): She is worried about reoccurance of neoplasm Will check CBC Ensure followup with chief medical officer onc No vaginal bleeding currently Ptosis of [...] Overview (11/05/2024): Per Dr Potts, endo at [facility]: Fair control hemoglobin A1c 7.2% but she [...] weekly -called px Trulicity is ready to metal pickling equipment operator -endocrinology apt 05/28/[address] Potts -PCP apt 05/29/2024 Assessment & Plan (01/20/2024 12:53 PM EDT): Followed by [facility] endocrinology Assessment & Plan (11/20/2022 10:27 AM EST): Followed by [facility] endocrinology Gastroparesis 07/18/2021 Assessment & Plan (08/09/2025 5:07 PM EDT): Assessment & Plan (11/20/2022 10:26 AM EST): 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 If she can discontinue Plavix per [...] Plan (02/13/2023 3:40 PM EDT): Discussed that [facility] published guidelines about coverage specifically state that there is no coverage for liposuction Recommend consultation with bariatric surgeon about weight loss, with her concerns about gastroparesis and the operation, she declines this referral for now Severe recurrent major depression (CMS/HCC) 11/12 Assessment & Plan (06/01/2024 11:02 AM EDT): Seen at [facility], last christos cummings psychiatrist 05/21/2024 -Denies SI [...] connected to a therapist and psychiatrist at [facility]. She meets with her therapist (Domi [...] Date Type Department Care Team Description 09/16/2025 Telephone [facility] [address] [place] [phone] Shanice Jones MD Pre Op 09/09/2025 Telephone [facility] [address] [place] [address] [phone] Shanice Jones MD chart prep 09/08/2025 Telephone [facility] [address] [place] [address] [phone] Shanice Jones MD FYI 09/01/2025 Telephone [facility] [address] [place] [address] [phone] Shanice Jones MD Durable Medical Equipment 08/29/2025 Refill [facility] [address] [place] [address] [phone] Shanice Jones MD 08/26/2025 Telephone [facility] [address] [place] [phone] Shanice Jones MD Durable Medical Equipment (DME Request: Bedside Commode) 08/26/2025 Telephone [facility] [address] [place] [phone] Shanice Jones MD Verbal Order; Referral-Ortho 08/20/2025 Refill [facility] [address] [place] [address] [phone] Shanice Jones MD 08/18/2025 Telephone [facility] [address] [place] [address] [phone] Shanice Jones MD Call Back Request 08/11/2025 Telephone [facility] [address] [facility] [place] [address] Shanice Jones MD Care Coordination (ICP Care Plan) 08/09/2025 9:45 AM EDT Office Visit [address] [address] Anupama Brooks NP Other closed fracture of distal end of right fibula with routine healing, subsequent encounter (Primary Dx); Frequent falls; Gastroparesis; Type 2 diabetes mellitus with hyperglycemia, with long-term current use of insulin ([facility]); Slow transit constipation; Chronic left shoulder pain; Acute thoracic back pain, unspecified back pain laterality 08/09/2025 Telephone [facility] [address] [place] [phone] Anupama Brooks NP Physical Therapy and VNA 08/09/2025 Travel 08/09/[address] [address] Shanice Jones MD HDF appt 08/09/[address] [address] Shanice Jones MD Chart Prep 08/09/[address] [address] Shanice Jones MD 07/26/[address] [address] Shanice Jones MD HDF appointment 07/23/2025 Patient Outreach [facility] [address] [place] [address] Shanice Jones MD 07/23/2025 Patient Outreach [facility] [address] [place] [address] Shanice Jones MD Care Coordination (CP Care Coordination Chart Review) 07/22/2025 Patient Outreach [address] [address] Shanice Jones MD Transition Of Care (Tcm) (Hdf unscheduled) 07/20/[address] [address] Shanice Jones MD FYI 07/19/2025 Patient Outreach [facility] [address] [place] [phone] Shanice Jones MD 07/09/2025 Telephone [facility] [address] [place] [phone] Shanice Jones MD fyi 07/01/[address] [address] Shanice Jones MD Referral 06/30/2025 Results Follow-Up [facility] [address] [place] [address] [phone] Wanda Ivory MD XR CERVICAL SPINE 4V 06/30/2025 Orders Only [facility] External Provider, [facility] from Last 3 Months Immunizations Immunization [...] 05/13, 07/04/2020, Additional history exists COVID-19 Vaccine () 07/12/2025 12/01/2021, 01/25/2021 FIT 07/28/2025 07/28/2024 Diabetes: Hemoglobin [...] hyperglycemia, with long-term current use of insulin ([facility]) LIPID PANEL, STANDARD Routine 06/05/2024 11:45 AM EDT Type 2 diabetes mellitus with hyperglycemia, with long-term current use of insulin ([facility]) HM PAP/HPV Routine 10/24/2018 from Last 3 Months or Most Recently Relevant to Health Maintenance Results * POCT Hgb A1c (08/09/2025 9:33 AM EDT) Hemoglobin A1C 5.6 4.0 - 5.7 % QC Media Lot # [id number] Lot# Expiration Date [id number] Blood 08/09/2025 9:33 AM EDT Betty Dima DO POINT OF CARE TEST ENTER/CLEO T ORDERABLES Final Result * POCT Glucose (08/09/2025 9:31 AM EDT) Glucose Blood, POC 146 60 - 200 mg/dL QC Media Lot # [id number] Lot# Expiration Date [id number] Blood Capillary blood specimen / Unknown 08/09/2025 9:31 AM EDT Betty Jurjeannine DO POINT OF CARE TEST ENTER/CLEO T ORDERABLES Final Result * XR CERVICAL SPINE 4V (06/30/2025 4:53 PM EDT) Anatomical Region Laterality Modality Abdomen Radiographic Haylie ging 06/30/2025 4:53 PM EDT Narrative 06/30/2025 5:29 PM EDT [address] [address] XRay Report Signed Patient: Lindsey Wilson MR#: [id number] : 1965 Acct:[id number] Age/Sex: 60 / F ADM Date: 06/30/25 Loc: HO.CT Attending Dr: Nick Lofton MD Ordering Physician: Wanda Ivory MD Date of Service: 06/30/25 Procedure(s): XR cervical spine 4V Accession Number(s): [id number] cc: Shanice Jones; Wanda Ivory MD EXAMINATION: [...] 06/30/25 1726 DD/ 1653 TD/TT: 06/30/25 1705 Firer Automatic Stoker: Procedure Note Donotuseinterpreter, Image - 06/30/2025 [place] [address] XRay Report Signed Patient: Lindsey Wilson MR#: [id number] : 1965Acct:[id number] Age/Sex: 60 / FADM Date: 06/30/25 Loc: HO.CT Attending Dr: Nick Lofton MD Ordering Physician: Wanda Ivory MD Date of Service: 06/30/25 Procedure(s): XR cervical spine 4V Accession Number(s): [id number] cc: Shanice Jones; Wanda Ivory MD EXAMINATION: [...] 06/30/25 1726 DD/ 1653 TD/TT: 06/30/25 1705 Firer Automatic Stoker: us Wanda Ivory MD IMG XR PROCEDURES Final Result * CT Chest w/o Contrast (06/30/2025 4:39 PM EDT) Anatomical Region Laterality Modality Body, Chest Computed Tomogra phy 06/30/2025 4:39 PM EDT Narrative 06/30/2025 5:23 PM EDT [place] [address] CT Scan Report Signed Patient: Lindsey Wilson MR#: [id number] : 1965 Acct:[id number] Age/Sex: 60 / F ADM Date: 06/30/25 Loc: HO.CT Attending Dr: Nick Lofton MD Ordering Physician: Nick Lofton MD Date of Service: 06/30/25 Procedure(s): CT chest wo IV con Accession Number(s): [id number] cc: Shanice Jones; Nick Lofton MD Report Number: [id number]: Total DLP = 235.00 mGy-cm EXAMINATION: CT [...] 06/30/25 1719 DD/ 1639 TD/TT: 06/30/25 1657 Firer Automatic Stoker: Procedure Note Donotuseinterpreter, Image - 06/30/[address] [place] [address] [address] Scan Report Signed Patient: Lindsey Wilson MR#: [id number] : 1965Acct:[id number] Age/Sex: 60 / FADM Date: 06/30/25 Loc: HO.CT Attending Dr: Nick Lofton MD Ordering Physician: Nick Lofton MD Date of Service: 06/30/25 Procedure(s): CT chest wo IV con Accession Number(s): [id number] cc: Shanice Jones; Nick Lofton MD Report Number: [id number]: Total DLP = 235.00 mGy-cm EXAMINATION: CT [...] 06/30/25 1719 DD/ 1639 TD/TT: 06/30/25 1657 Firer Automatic Stoker: [facility] External Provider IMG CT PROCEDURES Final Result * Hm Colonoscopy (10/07/2024 10:40 AM EST) Colonoscopy Normal Normal Narrative Cecile Idalmis - 10/07/2024 10:40 AM EST Recommended 10 years . see results scanned in interactive media director on 10/07/2024 Historical Provider [facility] MAINTENANCE Edited Result - Final * BI Mammogram Screening Tomosynthesis Bilateral (06/10/2024 3:25 PM EDT) Anatomical Region Laterality Modality Breast Bilateral Mammography 06/10/2024 3:25 PM EDT Narrative 06/17/2024 11:18 AM EDT [address] [place] [address] Mammography Report Signed Patient: Lindsey Wilson MR#: [id number] : 1965 Acct:[id number] Age/Sex: 59 / F ADM Date: 06/10/24 Loc: HO.MAMMEmerita Attending Dr: Shanice Jones MD Ordering Physician: Shanice Jones Results: 1Negative Date of Service: 06/10/24 Follow Up: 1 Year From Orig inal Mammogram Procedure(s): MM tomosynthesis screening BI Accession Number(s): [id number] cc: Shanice Jones EXAMINATION: MM SCREENING DIGITAL [...] in OV> 06/17/24 1114 DD/ 1525 TD/TT: Firer Automatic Stoker: Procedure Note Donotuseinterpreter, Image - 06/17/[address] [place] [address] Mammography Report Signed Patient: Lindsey Wilson MR#: [id number] : 1965Acct:[id number] Age/Sex: 59 / FADM Date: 06/10/24 Loc: MAMMO Attending Dr: Shanice Jones MD Ordering Physician: Felix Jonesults: 1Negative Date of Service: 06/10/24Follow Up: 1 Year From Orig ina Mammogram Procedure(s): MM tomosynthesis screening BI Accession Number(s): [id number] cc: Shanice Jones EXAMINATION: MM SCREENING DIGITAL [...] in OV> 06/17/24 1114 DD/ 1525 TD/TT: Firer Automatic Stoker: us Shanice Jones MD IMG BI PROCEDURES Final Result * Albumin, Random Urine W/Creatinine (06/05/2024 11:45 AM EDT) Creatinine, Urine 148.96 mg/dL [facility] Microalbumin Urine 12.0 mg/L [facility] Microalbum Creatinine Ratio Ur 8.0 <30 ug/mg cr [facility] Comment:Albumin/Creatinine R atio Reference Ranges: Normal: < 30 ug/mg creatinine Microalbuminuria: 30 - 300 ug/mg creatinineClinical Albuminuria: > 300 ug/mg creatinine Urine (Urine, Random) 06/05/2024 11:45 AM EDT 06/05/2024 12:51 PM EDT us Shanice Jones MD LAB URINE ORDERABLES Final Res ult Performing Organization Address City/[facility]/ZIP Co de Phone Number [facility] [address] [place] [phone] * Hepatitis C Antibody with Reflex to HCV, RNA, Quantitative, Real-Time PCR (06/05/2024 11:45 AM EDT) Pathologist [facility] Hepatitis C Antibody Nonreactive Nonreactive [facility] Comment:Antibodies to HCV no t detected; does not exclude early acuteHCV infection. Blood Venous blood specimen / Unknown 06/05/2024 11:45 AM EDT 06/05/2024 1:04 PM EDT us Gissel Machuca MD LAB BLOOD ORDERAB LES Final Result Performing Organization Address [facility]/ZIP Co de Phone Number [facility] [address] [place] [phone] * HIV-1/2 Antigen and Antibodies, Fourth Generation, with Reflexes (06/05/2024 11:45 AM EDT) HIV AB/AG Nonreactive Nonreactive [facility] Comment:HIV-1 p24 Ag and/or HIV-1/HIV-2 Ab not detected.A test result that is nonreactive does not exclude thepossibility of exposure to or infection with HIV-1 and/orHIV-2. Nonreactive results in this assay for individualswith prior exposure to HIV-1 and/or HIV-2 may be due toantigen and antibody levels that are below the limit ofdetection of this assay.[employer] HIV Ag/Ab Combo assay result andsupplemental assay results should be interpreted inconjunction with the patient's clinical presentation,history and other laboratory results. If the results areinconsistent with clinical evidence, additional testing issuggested to confirm the result. Blood Venous blood specimen / Unknown 06/05/2024 11:45 AM EDT 06/05/2024 1:04 PM EDT us Gissel Machuca MD LAB BLOOD ORDERAB LES Final Result Performing Organization Address [facility] Co de Phone Number [facility] [address] [place] [phone] * (ABNORMAL) Lipid Panel, Standard (06/05/2024 11:45 AM EDT) Triglycerides 132 <150 mg/dL [facility] Comment:Desirable Triglyceri de: less than 150 mg/dLBorderline High Triglyceride 150-199 mg/dLHigh Triglyceride: 200-499 mg/dLVery High Triglyceride: greater than or equal to 5OO mg/dL Cholesterol 110 <200 mg/dL [facility] Comment:Desirable Cholestero l: less than 200 mg/dLBorderline High Cholesterol: 200-239 mg/dLHigh Cholesterol: greater than 239 mg/dL LDL Cholesterol Calculated 47 <100 mg/dL [facility] Comment:Desirable LDL: less than 100 mg/dLNear Optimal/Above Optimal LDL: 110- 129 mg/dLBorderline High LDL: 130-159 mg/dLHigh LDL: 160-189 mg/dLVery High LDL: greater than or equal to 190 mg/dL HDL Cholesterol 37(L) >40 mg/dL [facility] Comment:Desirable HDL: great er than 40 mg/dL Note: This HDL assay may give artificially low results in patients with liver disease. Blood Venous blood specimen / Unknown 06/05/2024 11:45 AM EDT 06/05/2024 1:04 PM EDT us Shanice Jones MD LAB BLOOD ORDERABLES Final Res ult Performing Organization Address [facility]/ZIP Co de Phone Number [facility] [address] [place] [phone] * PAP/HPV (10/24/2018) Pap Smear 1. NILM 1. NILM HPV Not Detected Undetected, Indeterminat e, Quantitative , Not Detected us Historical Provider HEALTH MAINTENANCE Final Result from Last 3 Months or Most Recently Relevant to Health Maintenance Insurance [employer] Care Teams Telephone Operator Relationship Specialty Start Date End Date Shanice Jones MD [address] [place] [address] PCP - General Family Medicine 12/22/20 Cary Alonzo It Account ManagerChild Custody Evaluator 08/26/24 Olamide Buitrago It Account ManagerChild Custody Evaluator 08/11/25 Morenita 08/26/25
--- OUTSIDE RECORDS SUMMARY | 2025-09-17 08:45 | XMS_ITS | Clinical Summary ---
Author Organization [facility] Address [address] [place] [address] Care Team Providers Care Oxygen System Tester Name Role Phone Unavailable Primary Care Provider [...]
== END 2025-09-17 08:22 | disposition home or self-care (01) ==
LOC: HO.HOSX 08:21
PROVIDERS: Visit Provider Physician Assistant
DX: S82.891A Other fracture of right lower leg, initial encounter for closed fracture (principal); X58.XXXA Exposure to other specified factors, initial encounter
CPT/HCPCS: 73610; 99212

== ENCOUNTER 2025-09-17 13:54 | Outpatient (AMB) | payer MEDICAID, SELFPAY ==
--- NOTE | 2025-09-17 14:14 | MHC.OFFVIS ---
Intake Visit Reasons: FC-Closed FC of distal end of RT fibula Intake Note: Lindsey is a 60 yr old female who presents today for a fracture care visit for her right distal end of right fibular DOI 07/17/25. Patient was hospitalized at [facility] for her right fibula fracture due to multiple falls. Patient was placed in a walking boot and has blisters due to friction of the boot. Patient was advise to follow up with service specialist. Today patient states she has falling multiple times. Patient notices her pain is getting worse when she is moving around. Pest Control Pilot Required: Yes Pest Control Pilot Services: Pest Control Pilot Present Pest Control Pilot Name: Mj ID#[id number] Allergies latex (LATEX) Allergy (Intermediate, Verified 09/17/25 14:21) ITCH/RASH Penicillins Allergy (Intermediate, Verified 09/17/25 14:21) RASH magnesium Allergy (Verified 09/17/25 14:21) Palpitations milk Allergy (Verified 09/17/25 14:21) stomach pain, red rash eggs Allergy (Uncoded 09/17/25 14:21) stomach pain Medication List - Last Reconciled 09/20/25 by Damion Cabrera PA-C albuterol sulfate 2.5 mg (3 mL) inhalation Q6H PRN 30 days albuterol sulfate 90 mcg/actuation (ProAir RespiClick) 2 inhalations inhalation Q6H PRN 30 days aspirin (Adult Low Dose Aspirin) 81 mg PO DAILY budesonide-formoterol 160-4.5 mcg/actuation (Symbicort) 2 puffs PO BID carvedilol 3.125 mg PO DAILY clonazepam 1 mg PO BEDTIME clotrimazole 1% (Clotrimazole-7) 1 appful vaginal BEDTIME 7 days cyclobenzaprine 5 mg PO TID PRN 10 days dextromethorphan-guaifenesin 5-100 mg/5 mL (Robitussin Cough-Chest Congestion DM) 10 mL PO Q6H PRN dulaglutide (Trulicity) 1.5 mg subcut QWEEK escitalopram oxalate 20 mg PO DAILY ferrous sulfate 325 mg PO DAILY fluticasone propion-salmeterol 500-50 mcg/dose (Advair Diskus) 1 inh inhalation BID furosemide 20 mg PO QAM glycerin (adult) 1 supp NH DAILY PRN insulin glargine (Lantus U-100 Insulin) 60 units subcut DAILY insulin regular human (Novolin R FlexPen) 15 units subcut TID [isosorbide mononitrate 60 mg PO DAILY] levothyroxine 50 mcg PO DAILY metformin 1,000 mg PO BID nebulizers As directed pantoprazole 40 mg PO BID prazosin 2 mg PO BEDTIME pregabalin 150 mg PO BID quetiapine (Seroquel) 25 mg PO BEDTIME [rosuvastatin 20 mg PO DAILY] [Vitamin D (with calcium) 1,000 multiple units PO DAILY] HPI HPI FC-Closed FC of distal end of RT fibula: Details: 60-year-old female presents to the office today for an injury she sustained to her right ankle on 07/17/2025. She was seen at [facility] where she was placed in a boot. She was in a rehab facility and then discharged and referred to our office for ortho eval. Patient has been walking with a boot and has no significant discomfort or concerns today. [facility] Medical History Pulmonary nodules Asthma-COPD overlap syndrome Tracheomalacia Nocturnal hypoxia History of nephrolithiasis Tremors of nervous system Dyspnea PTSD (post-traumatic stress disorder) Delayed gastric emptying Chronic idiopathic constipation Post-op pain Acute hemorrhoid Increased BMI Anxiety History of uterine cancer Arthritis Back pain History of gastroenteritis Hypothyroid Diabetes GERD (gastroesophageal reflux disease) Depression Migraine Asthma History of tachycardia Tachycardia Coronary artery disease Hypertension Surgical History Hx of colonoscopy History of endoscopy History of section History of cardiac catheterization History of hysterectomy Family History Brother Stomach cancer Esophageal cancer Colon cancer Maternal Aunt History of breast cancer Paternal Aunt History of breast cancer Other Cancer Diabetes Heart problem Kidney problem Liver problem Thyroid condition Social History Household Members: Children Household Members Other:: lives with son Alcohol intake: never Patient Tobacco Use Status: Never used Tobacco Current occupational status: disabled Review of Systems Const All systems reviewed & are unremarkable except as noted in HPI and below Physical Exam Const General: cooperative and no acute distress Orientation/consciousness: patient oriented x3 Resp Effort & Inspection: normal respiratory effort and able to speak in complete sentences Cardio Peripheral pulses: Peripheral pulses 2+ throughout Neuro General: patient oriented x3 Extrem Other: Right ankle normal to inspection no erythema or ecchymosis present. She has no swelling. No tenderness to palpation over the medial or lateral malleolus. No pain over the syndesmosis. She has good ankle range of motion without instability. Calf is supple and nontender neurovascularly intact. Office Procedures AMB Fracture Care Fracture Billing Code: Fracture Billing Code Results Reviewed Results Reviewed: X-rays of the right ankle obtained in the office today and reviewed by me show healed fracture along the distal fibula. Assessment & Plan Assessment & Plan (1) Closed right ankle fracture: Code(s): S82.891A - Other fracture of right lower leg, initial encounter for closed fracture Category: Medical Plan: Patient was given a lace-up ankle brace which she will start using with a regular street shoe. I also placed an order for physical therapy to work on range of motion, gentle strengthening proprioceptive training. The patient is unable to drive and does not have transportation therefore I placed an order for home VNA. The patient will continue with activities as tolerated if there is any questions or concerns she can follow up with Podiatry otherwise she will follow up as needed. Orders: Orders XR ankle RT min 3V 09/17/25 M25.571 - Pain in right ankle and joints of right foot Referrals [facility] Referral S82.891A - Other fracture of right lower leg, initial encounter for closed fracture Coding Level of Care Code New Pt Level 3 (25709) Complex EM visit Add On G2211 Diagnoses Closed right ankle fracture S82.891A CPT Codes Fracture Care - Fracture Billing Code: Fracture Billing Code ([id number])
== END 2025-09-17 15:11 | disposition home or self-care (01) ==
LOC: HO.HOS 13:55
PROVIDERS: PCP General Practice; Visit Provider Physician Assistant
DX: S82.891A Other fracture of right lower leg, initial encounter for closed fracture (principal)
CPT/HCPCS: 99213

== ENCOUNTER → 2025-09-17 13:55 | Outpatient (BNV) | payer MEDICAID, SELFPAY | PROVIDERS: Visit Provider Radiology Diagnostic Radiology | DX: M77.51 Other enthesopathy of right foot and ankle (principal) | CPT/HCPCS: 73610 ==

== ENCOUNTER 2025-11-08 15:07 | Outpatient (REF) | payer MEDICAID, SELFPAY ==
[2025-11-08 15:25] LABS: MANUAL DIFF FLAG NO
[2025-11-08 15:57] LABS: Hematocrit 37.8 % (37.0-47.0); Hemoglobin 12.3 g/dl (12.0-16.0); Imm Gran Abs Auto 0.03 X10*3/uL (0.00-0.03); Imm Gran Pct Auto 0.4 % (0.0-0.4); Lymphocytes Absolute Auto 2.4 X10*3/uL (1.2-4.9); Mean Corpuscular HGB Conc 32.5 g/dl (31.0-35.0); Mean Corpuscular Hemoglobin 29.1 pg (27.0-33.0); Mean Corpuscular Volume 89.4 fL (80.0-98.0); NRBC Abs Auto 0.000 X10*3/uL (0.0-0.012); NRBC Pct Auto 0.0 /100WBC (0.0-0.2); Platelet Count 97 X10*3/uL (160-400); Red Blood Count 4.23 X10*6/uL (4.20-5.50); White Blood Count 7.4 X10*3/uL (4.8-10.8)
[2025-11-08 16:00] LABS: INTERNATIONAL NORM RATIO 1.1 (0.9-1.1); Prothrombin Time 13.0 SEC (11.2-13.5)
[2025-11-08 16:03] LABS: Partial Thromboplastin Time 29.1 SEC (26.7-34.1)
--- OUTSIDE RECORDS SUMMARY | 2025-11-08 17:21 | XMS_ITS | Encounter Summary ---
Author Organization [facility] Address [address] [place] [address] Phone Care Team Providers Care Grain Loader Name Role Phone Shanice Jones MD Primary Care Provider + Shanice Jones MD Primary Care Provider + Encounter Details Date Type Department Care Team (Late st Contact Info) Description 05/03/2023 Procedure Pass [facility], Ct Scan - [facility] 30 [place] [address] Social History Tobacco Use Types Packs/Day Years [...] Description 12/09/2025 3:20 PM EST Office Visit [facility] Endocrinology Clinic 22 [place] [address] Omari Potts DO 22 [place] [address] 01/31/2026 1:30 PM EDT Office Visit [facility] Neurology [address] [address] Gabe Ramsey MD [address] [address] 05/02/2026 10:00 AM EDT Office Visit [facility] Neurology [address] [address] Mellisa Monterroso FNP [address] [address] documented as of this encounter Visit Diagnoses Not on filedocumented in this encounter Additional Health Concerns Infection Onset Date Last Indicated Resolved Time CoV-Risk 06/05/2024 06/05/2024 06/16/2024 1:22 AM EDT documented as of this encounter Care Teams Grain Loader Relationship Specialty Start Date End Date Shanice Jones MD PCP - General 10/18/21 07/16/25 Shanice Jones MD [address] [place] [address] PCP - General Family Medicine 07/17/25 documented as of this encounter Additional Source Comments The information contained in this document represents components of the legal health record. It is not the complete legal health record.[facility]
--- OUTSIDE RECORDS SUMMARY | 2025-11-08 17:21 | XMS_ITS | Encounter Summary ---
Author Organization [facility] Address [address] [place] [address] Phone Care Team Providers Care Counter Clerk Farm Equipment Parts Name Role Phone Shanice Jones MD Primary Care Provider + Shanice Jones MD Primary Care Provider + Encounter Details Date Type Department Care Team (Late st Contact Info) Description 08/13/2022 Procedure Pass [facility], Ct Scan - [address] [address] Social History Tobacco Use Types Packs/Day Years [...] Description 12/09/2025 3:20 PM EST Office Visit [facility] End[facility]inology Clinic [address] [place] [address] Omari Potts DO 22 [place] [address] 01/31/2026 1:30 PM EDT Office Visit [facility] Neurology Clinic [address] [place] [address] Gabe Ramsey MD 22 [facility], [address] [place] [address] 05/02/2026 10:00 AM EDT Office Visit [facility] Neurology Clinic [address] [place] [address] Mellisa Monterroso, GURDEEP 15 [facility], [address] [place] [address] documented as of this encounter Visit Diagnoses Not on filedocumented in this encounter Additional Health Concerns Infection Onset Date Last Indicated Resolved Time CoV-Risk 06/05/2024 06/05/2024 06/16/2024 1:22 AM EDT documented as of this encounter Care Teams Counter Clerk [employer] Relationship Specialty Start Date End Date Shanice Jones MD PCP - General 10/18/21 07/16/25 Shanice Jones MD 230 [place] [address] PCP - General Family Medicine 07/17/25 documented as of this encounter Additional Source Comments The information contained in this document represents components of the legal health record. It is not the complete legal health record.[facility]
--- OUTSIDE RECORDS SUMMARY | 2025-11-08 17:21 | XMS_ITS | Encounter Summary ---
Author Organization [facility] Address [address] [place] [address] Phone Care Team Providers Care Hemmer Chainstitch Name Role Phone Shanice Jones MD Primary Care Provider + Encounter Details Date Type Department Care Team (Late st Contact Info) Description 07/17/2025 Procedure Pass [facility], [facility] 30 [place] [address] Social History Tobacco Use Types Packs/Day Years [...] Description 12/09/2025 3:20 PM EST Office Visit [facility] Endocrinology Clinic [address] [place] [address] [place] [address] Omari Potts DO [address] [place] [address] [email or web address] 01/31/2026 1:30 PM EDT Office Visit [facility] Neurology Clinic [address] [place] [address] [place] [address] Gabe Ramsey MD [address] [place] [address], 2nd [place] [address] 05/02/2026 10:00 AM EDT Office Visit [facility] Neurology Clinic 22 [place] [address] Mellisa Monterroso FNP 15 [facility], 2nd [place] [address] [email or web address] documented as of this encounter Visit Diagnoses Not on filedocumented in this encounter Care Teams Hemmer Chainstitch Relationship Specialty Start Date End Date Shanice Jones MD [address] [place] [address] PCP - General Family Medicine 07/17/25 documented as of this encounter Additional Source Comments The information contained in this document represents components of the legal health record. It is not the complete legal health record.[facility]
--- OUTSIDE RECORDS SUMMARY | 2025-11-08 17:21 | XMS_ITS | Encounter Summary ---
Author Organization [facility] Address [address] [place] [address] Phone Care Team Providers Care National Expansion Recruiter Name Role Phone Shanice Jones MD Primary Care Provider + Shanice Jones MD Primary Care Provider + Encounter Details Date Type Department Care Team (Late st Contact Info) Description 08/13/2022 Procedure Pass [facility], Ct Scan - [address] [address] Social History Tobacco Use Types Packs/Day Years [...] 12/09/2025 3:20 PM EST Office Visit [facility] Endocrinology Clinic [address] [place] [address] Omari Potts DO 22 [place] [address] 01/31/2026 1:30 PM EDT Office Visit [facility] Neurology Clinic [address] [place] [address] Gabe Ramsey MD 22 [facility], [address] [place] [address] 05/02/2026 10:00 AM EDT Office Visit [facility] Neurology Clinic [address] [place] [address] Mellisa Monterroso, GURDEEP 15 [facility], [address] [place] [address] documented as of this encounter Visit Diagnoses Not on filedocumented in this encounter Additional Health Concerns Infection Onset Date Last Indicated Resolved Time CoV-Risk 06/05/2024 06/05/2024 06/16/2024 1:22 AM EDT documented as of this encounter Care Teams National Expansion Recruiter Relationship Specialty Start Date End Date Shanice Jones MD PCP - General 10/18/21 07/16/25 Shanice Jones MD 230 [place] [address] PCP - General Family Medicine 07/17/25 documented as of this encounter Additional Source Comments The information contained in this document represents components of the legal health record. It is not the complete legal health record.[facility]
--- OUTSIDE RECORDS SUMMARY | 2025-11-08 17:21 | XMS_ITS | Encounter Summary ---
Author Organization [facility] Address [address] [place] [address] Phone Care Team Providers Care Peanut Grader Name Role Phone Shanice Jones MD Primary Care Provider + Shanice Jones MD Primary Care Provider + Encounter Details Date Type Department Care Team (Late st Contact Info) Description 08/18/2022 Procedure Pass [facility], Ct Scan - [address] [address] Social History Tobacco Use Types Packs/Day Years [...] Description 12/09/2025 3:20 PM EST Office Visit [facility] Endocrinology Clinic [address] [place] [address] Omari Potts DO 22 [place] [address] 01/31/2026 1:30 PM EDT Office Visit [facility] Neurology Clinic [address] [place] [address] Gabe Ramsey MD 22 [facility], [address] [place] [address] 05/02/2026 10:00 AM EDT Office Visit [facility] Neurology Clinic [address] [place] [address] Mellisa Monterroso, GURDEEP 15 [facility], [address] [place] [address] documented as of this encounter Visit Diagnoses Not on filedocumented in this encounter Additional Health Concerns Infection Onset Date Last Indicated Resolved Time CoV-Risk 06/05/2024 06/05/2024 06/16/2024 1:22 AM EDT documented as of this encounter Care Teams Peanut Grader Relationship Specialty Start Date End Date Shanice Jones MD PCP - General 10/18/21 07/16/25 Shanice Jones MD 230 [place] [address] PCP - General Family Medicine 07/17/25 documented as of this encounter Additional Source Comments The information contained in this document represents components of the legal health record. It is not the complete legal health record.[facility]
--- OUTSIDE RECORDS SUMMARY | 2025-11-08 17:21 | XMS_ITS | Encounter Summary ---
Author Organization [facility] Address [address] [place] [address] Phone Care Team Providers Care Grey Goods Examiner Name Role Phone Shanice Jones MD Primary Care Provider + Shanice Jones MD Primary Care Provider + Encounter Details Date Type Department Care Team (Late st Contact Info) Description 06/05/2024 Procedure Pass [facility], Ct Scan - [facility] 30 [place] [address] Social History Tobacco Use Types Packs/Day Years [...] Description 12/09/2025 3:20 PM EST Office Visit [facility] Endocrinology Clinic 22 [place] [address] Omari Potts DO 22 [place] [address] 01/31/2026 1:30 PM EDT Office Visit [facility] Neurology [address] [address] Gabe Ramsey MD [address] [address] 05/02/2026 10:00 AM EDT Office Visit [facility] Neurology [address] [address] Mellisa Monterroso FNP [address] [address] documented as of this encounter Visit Diagnoses Not on filedocumented in this encounter Additional Health Concerns Infection Onset Date Last Indicated Resolved Time CoV-Risk 06/05/2024 06/05/2024 06/16/2024 1:22 AM EDT documented as of this encounter Care Teams Grey Goods Examiner Relationship Specialty Start Date End Date Shanice Jones MD PCP - General 10/18/21 07/16/25 Shanice Jones MD [address] [place] [address] PCP - General Family Medicine 07/17/25 documented as of this encounter Additional Source Comments The information contained in this document represents components of the legal health record. It is not the complete legal health record.[facility]
--- OUTSIDE RECORDS SUMMARY | 2025-11-08 17:21 | XMS_ITS | Encounter Summary ---
Author Organization [facility] Address [address] [place] [address] Phone Care Team Providers Care Cable Maintainer Name Role Phone Shanice Jones MD Primary Care Provider + Shanice Jones MD Primary Care Provider + Encounter Details Date Type Department Care Team (Late st Contact Info) Description 06/05/2024 Procedure Pass [facility], Ct Scan - [facility] 30 [place] [address] Social History Tobacco Use Types Packs/Day Years [...] Description 12/09/2025 3:20 PM EST Office Visit [facility] Endocrinology Clinic 22 [place] [address] Omari Potts DO 22 [place] [address] 01/31/2026 1:30 PM EDT Office Visit [facility] Neurology [address] [address] Gabe Ramsey MD [address] [address] 05/02/2026 10:00 AM EDT Office Visit [facility] Neurology [address] [address] Mellisa Monterroso FNP [address] [address] documented as of this encounter Visit Diagnoses Not on filedocumented in this encounter Additional Health Concerns Infection Onset Date Last Indicated Resolved Time CoV-Risk 06/05/2024 06/05/2024 06/16/2024 1:22 AM EDT documented as of this encounter Care Teams Cable Maintainer Relationship Specialty Start Date End Date Shanice Jones MD PCP - General 10/18/21 07/16/25 Shanice Jones MD [address] [place] [address] PCP - General Family Medicine 07/17/25 documented as of this encounter Additional Source Comments The information contained in this document represents components of the legal health record. It is not the complete legal health record.[facility]
--- OUTSIDE RECORDS SUMMARY | 2025-11-08 17:22 | XMS_ITS | Encounter Summary ---
Author Organization [employer] Address [address] [facility] 7t [place] [address] Care Team Providers Care Geophysical Operator Name Role Phone Shanice Jones MD Primary Care Provider [phone] Reason for Visit * Reason Comments Med Refill Encounter Details Date Type Department Care Team ([facility] Contact Info) Description 11/03/2025 Refill [facility] MEDICINE 230 [place], [place] [phone] Shanice Jones MD 230 [place] [address] Social History Tobacco Use Types Packs/Day Years Used Date Smoking Tobacco: Never Passive Smoke Exposure: Never Smokeless Tobacco: Never Alcohol Use Standard Drinks/Week Comments Never 0 (1 standard drink = 0.6 oz pur e alcohol) Alcohol Answer Date Recorded How often do you have a drink containing alcohol ? 0 10/20/2025 How many drinks containing a lcohol do you have on a typical day when you are drinking? 0 10/20/2025 How often do you have six or more drinks on one occasion? 0 10/20/2025 Depression Answer Date Recorded Patient Health Questionnaire-9 [...] the past 12 months, has t he [employer], gas, oil or water company threatened to [...] Care Team (Late st Contact Info) Description 12/22/2025 11:30 AM EST Office Visit [facility] MEDICINE [address] [place] [address] Shanice Jones MD [address] [place] [address] documented as of this encounter Visit Diagnoses Not on filedocumented in this encounter Additional Health Concerns Assessment Noted Time PHQ-9 Depression Total Score: 6 03/26/20 25 4:46 PM EDT documented as of this encounter Care Teams Geophysical Operator Relationship Specialty Start Date End Date Shanice Jones MD [address] [place] [address] PCP - General Family Medicine 12/22/20 Cary Alonzo Traveling Repair AccountantTruss Driver Helper 08/26/24 Olamide Buitrago Traveling Repair AccountantTruss Driver Helper 08/11/25 Aveanna 08/26/25 documented as of this encounter
--- OUTSIDE RECORDS SUMMARY | 2025-11-08 17:22 | XMS_ITS | Encounter Summary ---
Author Organization [facility] Address [address] [place] [address] Phone Care Team Providers Care Wildland Fire Fighter Specialist Name Role Phone Shanice Jones MD Primary Care Provider + Shanice Jones MD Primary Care Provider + Encounter Details Date Type Department Care Team (Late st Contact Info) Description 02/23/2025 Procedure Pass [facility], Ct Scan - [facility] 30 [place] [address] Social History Tobacco Use Types Packs/Day Years [...] Description 12/09/2025 3:20 PM EST Office Visit [facility] Endocrinology Clinic [address] [place] [address] [place] [address] Omari Potts DO [address] [place] [address] 01/31/2026 1:30 PM EDT Office Visit [facility] Neurology [address] [place] [address] Gabe Ramsey MD [address] [place] [address] 05/02/2026 10:00 AM EDT Office Visit [facility] Neurology [address] [place] [address] Mellisa Monterroso FNP [address] [place] [address] documented as of this encounter Visit Diagnoses Not on filedocumented in this encounter Care Teams Wildland Fire Fighter Specialist Relationship Specialty Start Date End Date Shanice Jones MD PCP - General 10/18/21 07/16/25 Shanice Jones MD 230 [place] [address] PCP - General Family Medicine 07/17/25 documented as of this encounter Additional Source Comments The information contained in this document represents components of the legal health record. It is not the complete legal health record.[facility]
--- OUTSIDE RECORDS SUMMARY | 2025-11-08 17:22 | XMS_ITS | Encounter Summary ---
Author Organization [employer] Address 75 [facility] 7 [place] [address] Care Team Providers Care Machine Paint Mixer Name Role Phone Shanice Jones MD Primary Care Provider [phone] Reason for Visit * Reason Onset Date Comments Medication Question 10/13/2025 Encounter Details Date Type Department Care Team ([facility] st Contact Info) Description 10/13/2025 Telephone [facility] MEDICINE 230 [place], [place] [phone] Shanice Jones MD 230 [place] [address] Medication Question Social History Tobacco Use Types Packs/Day Years [...] encounter Miscellaneous Notes * Telephone Encounter - Lyly Cobb RN - 10/14/2025 10:24 AM EST TC returned to [facility]. She reports pt.'s neuropathy in feet has been bothering her leading to her picking at her feet. She reports pt.'s feet have been cracked and peeling and is requesting a strong cream for dry skin and soothing. [facility] reports right now there are no open areas Pended dimethicone- petroleum as this is what I found recommended for this * Telephone Encounter - Mai Ramirez - 10/13/2025 10:37 AM EST TC from [facility] reporting that the patient has a skin cut on her foot. [facility] is requesting a prescription for a diabetic foot cream for the patient???s foot. Contact [facility] at [phone] documented in this encounter Plan of Treatment Upcoming Encounters Date Type Department Care Team (Late st Contact Info) Description 12/22/2025 11:30 AM EST Office Visit [facility] MEDICINE [address] [place] [phone] Shanice Jones MD 230 [place], [place] [phone] documented as of this encounter Visit Diagnoses Diagnosis Diabetic peripheral neuropathy (HCC) Type II or unspecified type diabetes mellitus with neurological manifestations, not stated as uncontrolled documented in this encounter Additional Health Concerns Assessment Noted Time PHQ-9 Depression Total Score: 6 03/26/20 25 4:46 PM EDT documented as of this encounter Care Teams Machine Paint Mixer Relationship Specialty Start Date End Date Shanice Jones MD 230 [place], [place] [phone] PCP - General Family Medicine 12/22/20 Cary Alonzo Paper Box CutterMachinist Wood 08/26/24 Olamide Buitrago Paper Box CutterMachinist Wood 08/11/25 Morenita 08/26/25 documented as of this encounter
--- OUTSIDE RECORDS SUMMARY | 2025-11-08 17:22 | XMS_ITS | Encounter Summary ---
Author Organization [employer] Address 75 [facility] 7 [place] [address] Care Team Providers Care Phone Manager Name Role Phone Shanice Jonse MD Primary Care Provider [phone] Sanaz Machuca Unavailable Reason for Visit * Reason Onset Date Comments Med Refill 02/14/2024 Encounter Details Date Type Department Care Team (Late st Contact Info) Description 02/14/[address] [facility] MEDICINE 230 [place], [place] [phone] Shanice Jones MD 230 [place], [place] [phone] Med Refill Social History Tobacco Use Types [...] EDT Patient has not received Clonazepam from [facility] provider. She has been receiving from Oliverio Perales [address] [place] [address], TC via P/I#[id number], reviewed with patient the above information and advised to call Dr Perales. Patient stated she understood. * Telephone Encounter - Nava Carmichael - 02/14/2024 11:42 AM EDT TC from pt requesting medication refill. Medications needing refill : clonazePAM (KlonoPIN) 1 MG tablet To be sent to: [facility] Pharmacy documented in this encounter Plan of Treatment Upcoming Encounters Date Type Department Care Team (Late st Contact Info) Description 12/22/2025 11:30 AM EST Office Visit [facility] MEDICINE [address] [place] [address] Shanice Jones MD 230 [place] [address] documented as of this encounter Visit Diagnoses Not on filedocumented in this encounter Care Teams Phone Manager Relationship Specialty Start Date End Date Shanice Jones MD [address] [place] [address] PCP - General Family Medicine 12/22/20 Sanaz Machuca 07/19/25 07/23/25 Cary Alonzo Terra Cotta Mold MakerRn Heart 08/26/24 Himanshu Caring 12/26/24 09/05/25 Olamide Buitrago [place] Mold MakerRn Heart 08/11/25 Morenita 08/26/25 documented as of this encounter
--- OUTSIDE RECORDS SUMMARY | 2025-11-08 17:22 | XMS_ITS | Encounter Summary ---
Author Organization [facility] Address [address] [place] [address] Phone Care Team Providers Care Power Electronics Research Engineer Name Role Phone Shanice Jones MD Primary Care Provider + Shanice Jones MD Primary Care Provider + Reason for Referral * MRI/CAT Scan - Closed Specialty Diagnoses / Procedures Referred By Contdea t Referred To Contact Radiology Diagnoses Elevated LFTs Procedures MRI Cholangiopancreatography (MRCP) Jaimee Coats CNP Phone: tel: fax: [email or web address] Referral ID Status Reason Start Date Expiration Date Visits Re quested Visits Authorized [id number] Closed 04/08/2025 04/08/2026 1 1 Encounter Details Date Type Department Care Team (Latest Contact Info) Description 04/01/2025 Transcribe Orders Virtual Department 30 [place] [address] Jaimee Coats CNP 10 [place], [place] [phone] [email or web address] Elevated LFTs (Primary Dx) Social History Tobacco [...] Description 12/09/2025 3:20 PM EST Office Visit [facility] Endocrinology Clinic [address] [place] [address] [place] [address] Omari Potts DO [address] [place] [address] 01/31/2026 1:30 PM EDT Office Visit [facility] Neurology Clinic [address] [place] [address] [place] [address] Gabe Ramsey MD [address] [place] [address], 2[address] [place] [address] [email or web address] 05/02/2026 10:00 AM EDT Office Visit [facility] Neurology [facility] [address] [place] [address] Mellisa Monterroso FNP [facility], 2nd [place] [address] [email or web address] documented as of this encounter Results * MRI CHOLANGIOPANCREATOGRAPHY (MRCP) WITH AND WITHOUT CONTRAST (04/25/2025 12:27 PM EDT) MGB IMG SHEETER MACHINE OPERATOR COMMENT Follow-up abdominal MRI in 6 months, or as clinically appropriate. [facility] Anatomical Region Laterality Modality Pancreas, Biliary Magnetic [...] initiated on 05/03/2025 9:02 AM, Message ID [id number]. Narrative 05/03/2025 9:03 AM EDT MRI CHOLANGIOPANCREATOGRAPHY [...] was initiated on 05/03/2025 9:02 AM,Message ID [id number]. us Jaimee Coats CNP IMG MR ABDOMEN Final Resu lt documented in this encounter Visit Diagnoses Diagnosis Elevated LFTs- Primary Other abnormal blood chemistry Elevated LFTs Other abnormal blood chemistry documented in this encounter Care Teams Power Electronics Research Engineer Relationship Specialty Start Date End Date Shanice Jones MD PCP - General 10/18/21 07/16/25 Shanice Jones MD 230 [place] [address] PCP - General Family Medicine 07/17/25 documented as of this encounter Additional Source Comments The information contained in this document represents components of the legal health record. It is not the complete legal health record.[facility]
--- OUTSIDE RECORDS SUMMARY | 2025-11-08 17:22 | XMS_ITS | Encounter Summary ---
Author Organization [facility] Address [address] [place] [address] Phone Care Team Providers Care Lead Systems Analyst Name Role Phone Raad Lucas NP, Renetta Primary Care Provider Malaika Augustin MD Primary Care Provider [phone] Shanice Jones MD Primary Care Provider + Shanice Jones MD Primary Care Provider + Encounter Details Date Type Department Care Team (Latest Contact Info) Description 02/23/2021 Ancillary Orders [facility] [address] [place] [address] Ernie Portillo, DO [address] [place] [id number] Chest pain, unspecified type Social History Tobacco [...] Description 12/09/2025 3:20 PM EST Office Visit [facility] [address] [place] [address] Omari Potts DO 22 [place] [address] 01/31/2026 1:30 PM EDT Office Visit [facility] Neurology [facility] [address] [place] [address] Gabe Ramsey MD [address] [address] 05/02/2026 10:00 AM EDT Office Visit [facility] Neu[facility] 22 [place] [address] Mellisa Monterroso FNP [address] [address] documented as of this encounter Visit Diagnoses Diagnosis Chest pain, unspecified type documented in this encounter Additional Health Concerns Infection Onset Date Last Indicated Resolved Time CoV-Risk 02/20/2022 02/20/2022 03/03/2022 1:24 AM EDT CoV-Risk 06/05/2024 06/05/2024 06/16/2024 1:22 AM EDT documented as of this encounter Care Teams Lead Systems Analyst Relationship Specialty Start Date End Date Renetta Shankar NP PCP - General 07/08/20 06/04/21 Malaika Moeller MD [address] [place] [address] PCP - General Family Medicine 06/05/21 10/17/21 Shanice Jones MD [address] [place] [address] 201 [place] [address] PCP - General 10/18/21 07/16/25 Shanice Jones MD 230 [place] [address] PCP - General Family Medicine 07/17/25 documented as of this encounter Additional Source Comments The information contained in this document represents components of the legal health record. It is not the complete legal health record.[facility]
--- OUTSIDE RECORDS SUMMARY | 2025-11-08 17:22 | XMS_ITS | Encounter Summary ---
Author Organization [facility] Address [address] [place] [address] Phone Care Team Providers Care Manager Practice Name Role Phone Malaika Moeller MD Primary Care Provider [phone] Shanice Jones MD Primary Care Provider + Shanice Jones MD Primary Care Provider + Encounter Details Date Type Department Care Team (Late st Contact Info) Description 07/19/2021 Procedure Pass [facility] MA[facility] PERIOP DEPT [address] [place] [address] Social History Tobacco Use Types Packs/Day Years [...] Description 12/09/2025 3:20 PM EST Office Visit [facility] [address] [place] [address] [place] [address] Omari Potts DO 22 [place] [address] 01/31/2026 1:30 PM EDT Office Visit [facility] Neurology [facility] [address] [place] [address] Gabe Ramsey MD 22 [facility], [address] [place] [address] [email or web address] 05/02/2026 10:00 AM EDT Office Visit [facility] Neu[facility] [address] [place] [address] Mellisa Monterroso FNP [address] [address] [email or web address] documented as of this encounter Visit Diagnoses Not on filedocumented in this encounter Additional Health Concerns Infection Onset Date Last Indicated Resolved Time CoV-Risk 02/20/2022 02/20/2022 03/03/2022 1:24 AM EDT CoV-Risk 06/05/2024 06/05/2024 06/16/2024 1:22 AM EDT documented as of this encounter Care Teams Manager Practice Relationship Specialty Start Date End Date Malaika Moeller MD [address] [address] PCP - General Family Medicine 06/05/21 10/17/21 Shanice Jones MD [address] [address] PCP - General 10/18/21 07/16/25 Shanice Jones MD [address] [place] [address] PCP - General Family Medicine 07/17/25 documented as of this encounter Additional Source Comments The information contained in this document represents components of the legal health record. It is not the complete legal health record.[facility]
--- OUTSIDE RECORDS SUMMARY | 2025-11-08 17:22 | XMS_ITS | Encounter Summary ---
Author Organization [facility] Address [address] [place] [address] Phone Care Team Providers Care Beam Carrier Hauler Pusher Name Role Phone Shanice Jones MD Primary Care Provider + Shanice Jones MD Primary Care Provider + Encounter Details Date Type Department Care Team (Late st Contact Info) Description 02/23/2025 Procedure Pass [facility], Ct Scan - [facility] [address] [place] [address] Social History Tobacco Use Types Packs/Day Years [...] Description 12/09/2025 3:20 PM EST Office Visit [facility] Endocrinology Clinic [address] [place] [address] [place] [address] Omari Potts DO [address] [place] [address] 01/31/2026 1:30 PM EDT Office Visit [facility] Neurology [address] [place] [address] Gabe Ramsey MD [address] [place] [address] 05/02/2026 10:00 AM EDT Office Visit [facility] Neurology [address] [place] [address] Mellisa Monterroso FNP [address] [place] [address] documented as of this encounter Visit Diagnoses Not on filedocumented in this encounter Care Teams Beam Carrier Hauler Pusher Relationship Specialty Start Date End Date Shanice Jones MD PCP - General 10/18/21 07/16/25 Shanice Jones MD 230 [place] [address] PCP - General Family Medicine 07/17/25 documented as of this encounter Additional Source Comments The information contained in this document represents components of the legal health record. It is not the complete legal health record.[facility]
--- OUTSIDE RECORDS SUMMARY | 2025-11-08 17:22 | XMS_ITS | Encounter Summary ---
Author Organization [employer] Address [address] [facility] 7 [place] [address] Care Team Providers Care V Belt Skiver Name Role Phone Shanice Jones MD Primary Care Provider [phone] Reason for Visit * Reason Onset Date Comments PT-1 09/28/2025 Encounter Details Date Type Department Care Team ([facility] st Contact Info) Description 09/28/2025 Telephone [facility] [address] [place], [place] [phone] Shanice Jones MD 230 [place] [address] PT-1 Social History Tobacco Use Types Packs/Day Years [...] * Telephone Encounter - Gutierrez Lofton - 09/28/2025 3:20 PM EST Patient calling requesting PT1 Home Address verified: Y/N: Yes Provider name or facility name: [facility] Facility Address: [address] [place] [address] Escort needed: Y/N: No Do you have a wheelchair: Y/N: No If yes- Manual or electric: N/A (Walker) Visits: Once a month documented in this encounter Plan of Treatment Upcoming Encounters Date Type Department Care Team (Late st Contact Info) Description 12/22/2025 11:30 AM EST Office Visit [facility] [address] [place] [address] Shanice Jones MD 230 [place] [address] documented as of this encounter Visit Diagnoses Not on filedocumented in this encounter Additional Health Concerns Assessment Noted Time PHQ-9 Depression Total Score: 6 03/26/20 25 4:46 PM EDT documented as of this encounter Care Teams V Belt Skiver Relationship Specialty Start Date End Date Shanice Jones MD 230 [place] [address] PCP - General Family Medicine 12/22/20 Cary Alonzo Geological ManagerAcademic Support Specialist 08/26/24 Olamide Buitrago Geological ManagerAcademic Support Specialist 08/11/25 Morenita 08/26/25 documented as of this encounter
--- OUTSIDE RECORDS SUMMARY | 2025-11-08 17:22 | XMS_ITS | Encounter Summary ---
Author Organization [facility] Address [address] [place] [address] Phone Care Team Providers Care System Software Developer Name Role Phone Shanice Jones MD Primary Care Provider + Shanice Jones MD Primary Care Provider + Encounter Details Date Type Department Care Team (Late st Contact Info) Description 10/07/2024 Procedure Pass [facility] Admitting Dept Virtual Department [address] [place] [address] Social History Tobacco Use Types Packs/Day Years [...] Description 12/09/2025 3:20 PM EST Office Visit [facility] Endocrinology Clinic [address] [place] [address] [place] [address] Omari Potts DO [address] [place] [address] 01/31/2026 1:30 PM EDT Office Visit [facility] Neurology Clinic [address] [place] [address] [place] [address] Gabe Ramsey MD [address] [address] 05/02/2026 10:00 AM EDT Office Visit [facility] Neurology [address] [place] [address] Mellisa Monterroso FNP [address] [address] documented as of this encounter Visit Diagnoses Not on filedocumented in this encounter Care Teams System Software Developer Relationship Specialty Start Date End Date Shanice Jones MD PCP - General 10/18/21 07/16/25 Shanice Jones MD 230 [place] [address] PCP - General Family Medicine 07/17/25 documented as of this encounter Additional Source Comments The information contained in this document represents components of the legal health record. It is not the complete legal health record.[facility]
--- OUTSIDE RECORDS SUMMARY | 2025-11-08 17:22 | XMS_ITS | Encounter Summary ---
Author Organization [facility] Address [address] [place] [address] Phone Care Team Providers Care Civil Engineer Name Role Phone Shanice Jones MD Primary Care Provider + Encounter Details Date Type Department Care Team (Latest Contact Info) Description 08/10/2025 Transcribe Orders Virtual Department 30 [place] [address] Jaimee Coats, CREATIVE ART DIRECTOR 10 [place] [address] Hepatic cirrhosis, unspecified hepatic cirrhosis type, unspecified [...] Description 12/09/2025 3:20 PM EST Office Visit [facility] Endocrinology Clinic [address] [place] [address] Omari Potts DO 22 [place] [address] 01/31/2026 1:30 PM EDT Office Visit [facility] Neurology [facility] [address] [place] [address] Gabe Ramsey MD 22 [facility], [address] [place] [address] [email or web address] 05/02/2026 10:00 AM EDT Office Visit [facility] Neurology [facility] [address] [place] [address] Mellisa Monterroso, GURDEEP 15 [facility], [address] [place] [address] [email or web address] documented as of this encounter Results * [...] Comparison: MRI CHOLANGIOPANCREATOGRAPHY (MRCP) WITH AND WITHOUT [id number]; CT ABDOMEN/PELVIS WITH CONTRAST ; US ABDOMENLIMITED [...] literature: 8.29 kPa ELAS us Jaimee Coats CREATIVE ART DIRECTOR IMG US ABDOMEN Final Resu lt documented in this encounter Visit Diagnoses Diagnosis Hepatic cirrhosis, unspecified hepatic cirrhosis type, unspecified whether ascites present- Primary Liver lesion Other specified disorders of liver Hepatic cirrhosis, unspecified hepatic cirrhosis type, unspecified whether ascites present Liver lesion Other specified disorders of liver documented in this encounter Care Teams Civil Engineer Relationship Specialty Start Date End Date Shanice Jones MD 230 [place] [address] PCP - General Family Medicine 07/17/25 documented as of this encounter Additional Source Comments The information contained in this document represents components of the legal health record. It is not the complete legal health record.[facility]
--- OUTSIDE RECORDS SUMMARY | 2025-11-08 17:22 | XMS_ITS | Encounter Summary ---
Author Organization [employer] Address [address] [facility] 7 [place] [address] Care Team Providers Care Oceanographer Geological Name Role Phone Shanice Jones MD Primary Care Provider [phone] Reason for Visit * Reason Onset Date Comments Call Back Request 11/01/2025 Encounter Details Date Type Department Care Team ([facility] st Contact Info) Description 11/01/2025 Telephone [facility] MEDICINE 230 [place], [place] [phone] Shanice Jones MD 230 [place] [address] Call Back Request Social History Tobacco Use Types Packs/Day Years [...] encounter Miscellaneous Notes * Telephone Encounter - Kvng Garcia - 11/01/2025 9:[address] Gabe alamo with [facility] neurology requesting to speak with PCP regarding pts headache and pain management care. Contact Dr. Bernal at [phone] (personal cell) documented in this encounter Plan of Treatment Upcoming Encounters Date Type Department Care Team (Late st Contact Info) Description 12/22/2025 11:30 AM EST Office Visit [facility] MEDICINE 230 [place] [address] Shanice Jones MD 230 [place] [address] documented as of this encounter Visit Diagnoses Not on filedocumented in this encounter Additional Health Concerns Assessment Noted Time PHQ-9 Depression Total Score: 6 03/26/20 25 4:46 PM EDT documented as of this encounter Care Teams Oceanographer Geological Relationship Specialty Start Date End Date Shanice Jones MD [address] [place] [address] PCP - General Family Medicine 12/22/20 Cary Alonzo Technical AsstRoad Grader 08/26/24 Olamide Buitrago Technical AsstRoad Grader 08/11/25 Morenita 08/26/25 documented as of this encounter
--- OUTSIDE RECORDS SUMMARY | 2025-11-08 17:22 | XMS_ITS | Encounter Summary ---
Author Organization [employer] Address [address] [place] [address] 7 [place] [address] Care Team Providers Care Assembler Faucets Name Role Phone Shanice Jones MD Primary Care Provider [phone] Sanaz Machuca Unavailable Encounter Details Date Type Department Care Team ([facility] Contact Info) Description 07/11/2023 Abstract [facility] MEDICINE [address] [place] [phone] Shanice Jones MD [address] [place] [address] [phone] Social History Tobacco Use Types Packs/Day Years [...] Department Care Team (Late Contact Info) Description 12/22/2025 11:30 AM EST Office Visit [facility] MEDICINE [address] [place] [phone] Shanice Jones MD [address] [place] [phone] documented as of this encounter Procedures Procedure Name Priority Date/Time Associated Diagnosis Comments COLONOSCOPY Routine 09/16/2014 documented in this encounter Results * Colonoscopy (09/16/2014) Colonoscopy Normal Normal Narrative Idalmis Huber - 09/16/2014 Recommended 10 year follow up ( [facility] [place] us Historical Provider HEALTH MAINTENANCE Final Result documented in this encounter Visit Diagnoses Not on filedocumented in this encounter Care Teams Assembler Faucets Relationship Specialty Start Date End Date Shanice Jones MD 230 [place] [address] PCP - General Family Medicine 12/22/20 Sanaz Machuca 07/19/25 07/23/25 Cary Alonzo Telephonic RnObstetrics Gynecology Md 08/26/24 Himanshu Hayes 12/26/24 09/05/25 Olamide Buitrago Telephonic RnObstetrics Gynecology Md 08/11/25 Morenita 08/26/25 documented as of this encounter
--- OUTSIDE RECORDS SUMMARY | 2025-11-08 17:22 | XMS_ITS | Encounter Summary ---
Author Organization [facility] Address [address] [place] [address] Phone Care Team Providers Care Museum Exhibit Technician Name Role Phone Shanice Jones MD Primary Care Provider + Shanice Jones MD Primary Care Provider + Encounter Details Date Type Department Care Team (Late st Contact Info) Description 11/10/2024 Procedure Pass [facility], Ct Scan - [facility] 30 [place] [address] Social History Tobacco Use Types Packs/Day Years [...] Description 12/09/2025 3:20 PM EST Office Visit [facility] Endocrinology Clinic [address] [place] [address] [place] [address] Omari Potts DO [address] [place] [address] 01/31/2026 1:30 PM EDT Office Visit [facility] Neurology [address] [place] [address] Gabe Ramsey MD [address] [address] 05/02/2026 10:00 AM EDT Office Visit [facility] Neurology [address] [place] [address] Mellisa Monterroso FNP [address] [place] [address] documented as of this encounter Visit Diagnoses Not on filedocumented in this encounter Care Teams Museum Exhibit Technician Relationship Specialty Start Date End Date Shanice Jones MD PCP - General 10/18/21 07/16/25 Shanice Jones MD 230 [place] [address] PCP - General Family Medicine 07/17/25 documented as of this encounter Additional Source Comments The information contained in this document represents components of the legal health record. It is not the complete legal health record.[facility]
--- OUTSIDE RECORDS SUMMARY | 2025-11-08 17:22 | XMS_ITS | Clinical Summary ---
Author Organization [facility] Address [address] [place] [address] Phone Care Team Providers Care Beauty Culture Teacher Name Role Phone Shanice Jones MD [...] Active ferrous sulfate 325 mg (65 mg [place] iron) tablet Take 1 tablet by mouth [...] 021 2021 Discontinued(T herapy Completed/No Longer Necessary) Active Problems Problem Noted Date Diagnosed Date [...] to 150s --Findings were reviewed with her drawbridge operator. Unclear cause of the baseline low cortisol [...] is not getting enough Lantus because the [facility] has written for 30 units of [...] 2 weeks. The patient received lot number [id number], expiration 12/26/2023. Assessment & Plan (03/22/2022 5:15 [...] weeks. She was given sample Lot number [id number], expiration 04/13/2023. She does have gastroparesis so [...] have more enuresis. Pioglitazone is an insulin county court judge which I would like to prescribe but [...] type of corn meal. I tried to certified credit counselor her on nutrition she states that [...] Encounters Date Type Department Care Team Description 11/01/2025 9:30 AM EST Office Visit [facility] [address] [place] [address] [place] [address] Gabe Ramsey MD Miranda-Leon, [place] Intractable chronic migraine without aura and with status migrainosus (Primary Dx); Chronic pain syndrome; Memory changes; Vision changes 11/01/2025 Telephone [facility] [address] [place] [address] [place] [address] Gabe Ramsey MD 09/28/2025 Telephone [facility] [address] [place] [address] [place] [address] Shanique Vidales LPN Medication Problem; Medication Prior Authorization (Ajovy ) 09/16/2025 Refill [facility] [address] [place] [address] Abena Buitrago MA 08/26/2025 Telephone [facility] [address] [place] [address] Jaimee Coats CNP Needs a f/u - 4-5 mth with RC 08/25/2025 Refill [facility] [address] [place] [address] Claritza Pastor MA Medication Refill 08/19/2025 9:33 AM EDT - 08/19/2025 11:59 PM EDT Hospital Encounter [address] [address] Jaimee Coats CNP Discharge Disposition: Home or Self Care 08/10/2025 Transcribe Orders [facility] Department [address] [place] [address] Jaimee Coats CNP Hepatic cirrhosis, unspecified hepatic cirrhosis type, unspecified whether ascites present (Primary Dx); Liver lesion 08/09/2025 3:31 PM EDT - 08/09/2025 11:59 PM EDT Hospital Encounter [facility] [address] [address] Jaimee Coats CNP Discharge Disposition: Home or Self Care 08/09/[address] [facility] [address] [address] Jaimee Coats CNP Need for hepatitis B screening test (Primary Dx); Liver lesion; Hepatic cirrhosis, unspecified hepatic cirrhosis type, unspecified whether ascites present; Gastroesophageal reflux disease without esophagitis from Last 3 Months Immunizations Immunization Administration Dates Next Due INFLUENZA, SPLIT VIRUS, TRIVALENT PF 07/21/2025 Family History Medical History Relation Comments No Known Problems Father Coronary artery disease Mother Diabetes Mother Relation Status Comments Father Mother Social History Tobacco Use Types Packs/Day Years Used Date Smoking Tobacco: Never Smokeless Tobacco: Never Tobacco Cessation:Counseling Given: [...] Sign Reading Time Taken Comments Blood Pressure 124/68 11/01/2025 9:20 AM EST Pulse 70 11/01/2025 9:20 AM EST Temperature 36.4 C (97.5 F) 07/21/2025 4:31 PM EDT Respiratory Rate 96 07/26/2025 11:46 AM EDT Oxygen Saturation 97% 11/01/2025 9:20 AM EST Inhaled Oxygen Concentration - - Weight 72.6 kg (160 lb 0.9 oz) 07/20/2025 5:24 A M EDT Height 160 cm (5' 2.99 ) 07/20/2025 5:24 AM EDT Body Mass Index 28.36 07/20/2025 5:24 AM EDT Plan of Treatment Upcoming Encounters Date Type Department Care Team (Late st Contact Info) Description 12/09/2025 3:20 PM EST Office Visit [facility] [address] [place] [address] [address] [place] [address] Omari Potts DO [address] [place] [address] 01/31/2026 1:30 PM EDT Office Visit [facility] [address] [place] [address] Gabe Ramsey MD [address] [address] 05/02/2026 10:00 AM EDT Office Visit [facility] [address] [place] [address] Mellisa Monterroso FNP [address] [address] Health Maintenance Due Date Last Done Comments [...] 12/01/2021 FIT TEST 07/28/2025 07/28/2024 HEMOGLOBIN A1C 04/20/2026 10/20/2025, 07/13, 08/09/2025, Additional history exists BLOOD PRESSURE 05/02/2026 11/01/2025 MAMMOGRAM 06/10/2026 06/10/2024, 06/12, 07/04/2020, Additional history exists TSH LEVEL 07/18/2026 07/18/2025 CREATININE LEVEL 07/22/2026 07/22/2025, 05/2025, 07/17/2025, Additional history exists POTASSIUM LEVEL 07/22/2026 07/22/2025, 09/0 05/2025, 07/17/2025, Additional history exists Adult Td,Tdap Booster 12/25/2031 12/25/2021, 010 COLONOSCOPY 10/07/2034 10/07/2024 COLORECTAL CANCER SCREENING 10/07/2034 ZOSTER VACCINES Completed 12/25/2021, 10/18/2020 INFLUENZA VACCINE Completed 07/21/2025, , 10/02/2021, Additional history exists HEPATITIS C SCREENING Completed 08/09/2025 , 08/09/2025, 08/09/2025, Additional history exists SMOKING STATUS SCREENING (Once After 26 Yrs) Completed 11/01/2025 HIB VACCINES Aged Out No longer eligi ble based on patient's age to complete this topic MENINGOCOCCAL VACCINES (ACWY) Aged Out No longer eligible based on patient's age to complete this topic MENINGOCOCCAL VACCINES (B) Aged Out N o longer eligible based on patient's age to complete this topic Medical Devices Implanted Type Area Hot Mill Tin Roller Device Identifier Shelf Expiration Date Model / Serial / Lot Web Embolization Coil Coil Brain Cordis Precise Stent Stent Procedures Procedure Name Priority Date/Time Associated Diagnosis Comments US LIVER WITH ELASTOGRAPHY Routine 08/19/2025 10:57 AM EDT Hepatic cirrhosis, unspecified hepatic cirrhosis type, unspecified whether ascites present Liver lesion [id number] PHENOTYPING Routine 08/09/2025 3:32 PM EDT Need [...] (CMP) Routine 07/22/2025 6:15 AM EDT Illness THYROID STIMULATING HORMONE (TSH) Routine 07/18/2025 5:55 AM EDT ENDOSCOPY, COLON 10/07/2024 3:55 PM EST [...] Comparison: MRI CHOLANGIOPANCREATOGRAPHY (MRCP) WITH AND WITHOUT [id number]; CT ABDOMEN/PELVIS WITH CONTRAST ; US ABDOMENLIMITED [...] CNP IMG US ABDOMEN Final Resu lt * (ABNORMAL) Liver fibrosis test (08/09/2025 3:32 PM EDT) Fibrosis score 0.49 [facility] Interpretation (Fibrosis) SEE NOTE [facility] Comment: (NOTE) moderate fibrosis Fibro Test Score [...] HCV Fibrosis Grade F2 Q [facility] NECROINFLAMM SCORE 0.14 Q [facility] NECROINFLAMM GRADE A0 Q [facility] NECROINFLAMM INTERP SEE NOTE [facility] Comment: (NOTE) no activity ActiTest Score (a) [...] A2 Macroglobulin 165 106 - 279 mg/dL [facility] Haptoglobin 140 43 - 212 mg/dL [facility] Apolipoprotein A1 120 101 - 198 mg/dL [facility] TOTAL BILIRUBIN 1.3(H) 0.2 - 1.2 mg/dL [facility] GGT 125(H) 3 - 65 U/L [facility] ALT 24 6 - 29 U/L [facility] Specimen/Product ID [id number] [facility] Comments (Chemistry) SEE NOTE [facility] Comment: (NOTE) The reliability of results is dependent on compliance with the preanalytical and analytical conditions recommended by vzaar. The tests have to be deferred for: [...] The performance characteristics have been determined by [facility], [place]. It has not been cleared or approved by the U.S. Food and Drug Administration. Performance characteristics refer to the analytical performance of the test. [employer], the associated logo, [employer] and all associated [employer] martinez are the registered trademarks of [employer]. All third libertarian martinez - (R) and (TM) - are the property of their respective owners. (C) [id number] [employer]. All rights reserved. Blood 08/09/2025 3:32 PM EDT 08/09/2025 3:50 PM EDT Jaimeekashif Ericksonren Coats [facility] LAB BLOOD BKR ORDERABLES F inal Result [facility] [address] [place] [address], [facility] [phone] * Kxwtu-9-mkfyvqeqejx phenotyping (08/09/2025 3:32 PM EDT) ALPHA 1 ANTITRYPSIN 141 100 - 190 mg/dL [facility] Comment: (NOTE) ADDITIONAL INFORMATION Method: Nephelometry A1A PHENOTYPE MM bands [facility] Comment: (NOTE) A single M isoform is detected. In the context of a normal dkgeq-9-jscifonamzp concentration, this is consistent with an MM phenotype. ADDITIONAL INFORMATION Method: Isoelectric Focusing, This assay identifies the phenotype of the circulating byyth-5-mufdsqwkqxl (A1A) protein. If the patient is on replacement therapy or has been recently transfused, the phenotype will detect patient and replacement or transfused plasma A1A protein. This test also cannot detect a null allele which could be responsible for an A1A deficiency. Blood 08/09/2025 3:32 PM EDT 08/09/2025 3:50 PM EDT Jaimee Coats [facility] LAB BLOOD ORDERABLES Final Result [facility] [address] [place] [address] * (ABNORMAL) LFTs (hepatic panel) (08/09/2025 3:32 PM EDT) Pathologist [facility] ALKALINE PHOSPHATASE 113 39 - 117 U/L [facility] TOTAL BILIRUBIN 1.2 0.0 - 1.2 mg/dL [facility] DIRECT BILIRUBIN 0.4(H) 0.0 - 0.2 mg/dL [facility] Bilirubin (Indirect) 0.8 0 - 1.5 mg/dL [facility] AST 31 0 - 37 U/L [facility] ALT 24 0 - 40 U/L [facility] TOTAL PROTEIN 7.5 6.5 - 8.0 g/dL [facility] ALBUMIN 4.6 3.9 - 4.8 g/dL [facility] GLOBULIN 2.9 1 - 4.8 g/dL [facility] A/G Ratio 1.59 1.00 - 4.80 RATIO [facility] Blood 08/09/2025 3:32 PM EDT 08/09/2025 3:49 PM EDT [facility] LAB BLOOD BKR ORDERABLES F inal Result [address] [address] * Hepatitis C antibody, qualitative (08/09/2025 3:32 PM EDT) [facility] HCV NON-REACTIV E NON-REACTI VE [facility] Blood 08/09/2025 3:32 PM EDT 08/09/2025 3:49 PM EDT [facility] BKR ORDERABLES E dited Result - Final [address] [address] * Tissue transglutaminase IgA (08/09/2025 3:32 PM EDT) [facility] TTG IGA ANTIBODY 1.3 <4.0 (Negative) U/mL [facility] [address] Blood 08/09/2025 3:32 PM EDT 08/09/2025 3:50 PM EDT Jaimee Coats [facility] LAB BLOOD BKR ORDERABLES F inal Result [facility] [address] [place] [address] * Ceruloplasmin (08/09/2025 3:32 PM EDT) Pathologist [facility] CERULOPLASMIN 27 20 - 60 mg/dL [facility] Blood 08/09/2025 3:32 PM EDT 08/09/2025 3:49 PM EDT Jaimee Coats [facility] LAB BLOOD ORDERABLES Final Result Performing Organization Address [facility] Co de Phone Number [address] [address] * AFP (non-maternal specimens) (08/09/2025 3:32 PM EDT) Pathologist [facility] AFP (NON-MATERNAL) 2.5 <7.9 ng/mL [facility] Comment: Test Methodology Valerie [id number] Patient results determined by assays using different manufacturers or methods may not be comparable. Blood 08/09/2025 3:32 PM EDT 08/09/2025 3:49 PM EDT Jaimee Coats [facility] LAB BLOOD BKR ORDERABLES F inal Result Performing Organization Address City/[facility] Co de Phone Number [facility] [address] [place] [address] * Anti-Mitochondrial Antibody (AMA) (08/09/2025 3:32 PM EDT) Pathologist [facility] MITOCHONDRIAL AB M2 <0.1 <0.1 (Negative) U [facility] MED[facility]PATH [facility] CHAN Blood 08/09/2025 3:32 PM EDT 08/09/2025 3:50 PM EDT Jaimee Coats [facility] LAB BLOOD ORDERABLES Final Result Performing Organization Address [facility] Co de Phone Number [facility] LAB MED/PATH [address] [place] [address] * Smooth Muscle Antibody (08/09/2025 3:32 PM EDT) [facility] ANTI-SMOOTH MUSCLE AB Negative Negative [facility] Comment: (NOTE) Negative: No further testing will be performed ADDITIONAL INFORMATION This test was developed and its performance characteristics determined by [facility] in a manner consistent with CLIA requirements. This test has not been cleared or approved by the U.S. Food and Drug Administration. Blood 08/09/2025 3:32 PM EDT 08/09/2025 3:50 PM EDT Jaimeekashif Mccray Jorge L [facility] LAB BLOOD ORDERABLES Final Result Performing Organization Address [facility] de Phone Number [facility] LAB MED/PATH [address] [place] [address] * Hepatitis B surface antibody (08/09/2025 3:32 PM EDT) [facility] HBV SURFACE ANTIBODY Reactive [facility] Comment: Unvaccinated: Non Reactive Vaccinated: Reactive Blood 08/09/2025 3:32 PM EDT 08/09/2025 3:49 PM EDT Jaimee Mccray [facility] LAB BLOOD BKR ORDERABLES E dited Result - Final Performing Organization Address [facility] Co de Phone Number [facility] [address] [place] [address] * Hepatitis B surface antigen (08/09/2025 3:32 PM EDT) [facility] HBV SURFACE ANTIGEN NON-REACTI VE NON-REACTI VE [facility] Blood 08/09/2025 3:32 PM EDT 08/09/2025 3:49 PM EDT Jaimee Coats [facility] LAB BLOOD BKR ORDERABLES E dited Result - Final Performing Organization Address [facility] Co de Phone Number [address] [address] * PT-INR (08/09/2025 3:32 PM EDT) PT 12.4 10.2 - 12.9 sec [facility] INR 1.0 0.9 - 1.1 [facility] Comment:Therapeutic range fo r oral Vitamin K antagonists: 2.0-3.5 Blood 08/09/2025 3:32 PM EDT 08/09/2025 3:49 PM EDT Jaimee Coats [facility] LAB BLOOD BKR ORDERABLES F inal Result Performing Organization Address [facility] Co de Phone Number [address] [address] * Antinuclear antibody (PATRICK) (08/09/2025 3:32 PM EDT) PATRICK SCREEN ON HEP 2 Negative Negative [facility] Blood 08/09/2025 3:32 PM EDT 08/09/2025 3:49 PM EDT Jaimee Coats [facility] LAB BLOOD BKR ORDERABLES F inal Result Performing Organization Address [facility] Co de Phone Number [address] [address] * Hemoglobin A1c (08/09/2025 3:32 PM EDT) HEMOGLOBIN A1C 5.6 4.3 - 5.8 % [facility] Blood 08/09/2025 3:32 PM EDT 08/09/2025 9:06 PM EDT Jaimee Coats [facility] LAB BLOOD BKR ORDERABLES F inal Result [address] [address] * Immunoglobulin A (08/09/2025 3:32 PM EDT) IgA 299 70 - 400 mg/dL [facility] Blood 08/09/2025 3:32 PM EDT 08/09/2025 3:49 PM EDT us Jaimee Mccray [facility] LAB BLOOD BKR ORDERABLES F inal Result Performing Organization Address City/[facility]/ZIP Co de Phone Number [address] [address] * Comprehensive metabolic panel (07/22/2025 6:15 AM EDT) SODIUM 141 133 - 146 mmol/L [facility] POTASSIUM 3.8 3.3 - 5.1 mmol/L [facility] CHLORIDE 102 96 - 108 mmol/L [facility] CO2 28 21 - 35 mmol/L [facility] BUN 18 6 - 19 mg/dL [facility] CREATININE 0.60 0.5 - 1.5 mg/dL [facility] GLUCOSE 92 70 - 99 mg/dL [facility] ALBUMIN 4.2 3.9 - 4.8 g/dL [facility] TOTAL PROTEIN 6.6 6.5 - 8.0 g/dL [facility] CALCIUM 9.8 8.4 - 10.3 mg/dL [facility] ALKALINE PHOSPHATASE 110 39 - 117 U/L [facility] TOTAL BILIRUBIN 1.0 0.0 - 1.2 mg/dL [facility] AST 32 0 - 37 U/L [facility] ALT 27 0 - 40 U/L [facility] GLOBULIN 2.4 1 - 4.8 g/dL [facility] EGFR 103 >59 mL/min/1.7 3m2 [facility] Comment:Estimated glomerular filtration rate calculated using the CKD-EPI refit equation. ANION GAP 15 10 - 20 mmol/L [facility] Blood 07/22/2025 6:15 AM EDT 07/22/2025 8:25 AM EDT us Bobbi Malone MD LAB BLOOD BKR ORDERABLES Final Result Performing Organization Address City/[facility]/ZIP Co de Phone Number [address] [address] * TSH (07/18/2025 5:55 AM EDT) TSH 3.07 0.27 - 4.20 uIU/mL [facility] Blood 07/18/2025 5:55 AM EDT 07/18/2025 6:18 AM EDT us Bill Dalton DO LAB BLOOD BKR ORDERABLES Final Result Performing Organization Address [facility] Co de Phone Number [address] [address] * ENDOSCOPY, COLON (10/07/2024 3:55 PM EST) Narrative Transcriptions Rilye Bedolla MD - 10/07/2024 3:55 PM EST [facility] Patient Name: Lindsey Corral MD:: RILEY BEDOLLA MD, Procedure Date: 10/07/2024 3:55 PM Date of : 1965 Age: 59 Admit Type: Outpatient Gender: Female Room: [place] [address] Referring MD: Shanice Jones Exam Type: Colonoscopy [...] monitored continuously. The Olympus adult variable colonoscope [id number] #[id number] was introduced through the anus and [...] 3:55 PM Procedure Code(s): --- Professional --- 28573, Colonoscopy, flexible; with removal of tumor(s), polyp(s), or other lesion(s) by snare technique --- Technical --- 83314, Colonoscopy, flexible; with removal of tumor(s), polyp(s), or other lesion(s) by snare technique CPT copyright 2021 [employer]. All rights reserved. The codes documented in this report are preliminary and upon manager social responsibility reviewmay be revised to meet current compliance requirements. Procedure Date: 10/07/2024 3:55:[address] [place] [address] us Shanice Jones MD GI PROCEDURE ORDERABLES Final Result * Fecal immunochemical test x1 (FIT) (07/28/2024 6:11 PM EDT) Immuno Fecal Occult Negative Negative [facility] Stool (Stool) 07/28/2024 6:1 1 PM EDT 07/28/2024 6:13 PM EDT us Jaimee Coats CNP LAB BODY FLUIDS AND STOOL ORDERABLES Final Result [facility] [address] [place] [address] from Last 3 Months or Most Recently Relevant to Health Maintenance Insurance [facility] C3 ACO [facility] C3 A[facility] C3 ACO [facility] C[address] [place] [address] [place] [address] C3 ACO [facility] C3 ACO Advance Directives For more information, please contact: [phone] (9AM - 5PM [facility], Saturday-Saturday) Documents on File Type Date Recorded Patient Merchandise Manager Expl anation Healthcare Proxy 07/20/2021 12:54 PM * Full Code (Latest Code Status on File) Date Activated Date Inactivated Comments 07/18/2025 12:02 AM Question Answer Comments Code Status Confirmed With: Patient Code Status Communicated To: Inpatient Attending Healthcare Agents on File Name Relationship Healthcare Agent [facility] Communication Nick Layne Son .Primary Health Care Agent (Proxy form on file) Care Teams Beauty Culture Teacher Relationship Specialty Start Date End Date Shanice Jones MD [address] [place] [address] PCP - General Family Medicine 07/17/25 Additional Source Comments The information contained in this document represents components of the legal health record. It is not the complete legal health record[facility]
--- OUTSIDE RECORDS SUMMARY | 2025-11-08 17:22 | XMS_ITS | Encounter Summary ---
Author Organization [facility] Address [address] [place] [address] Phone Care Team Providers Care Overlock Waistline Joiner Name Role Phone Shanice Jones MD Primary Care Provider + Shaniec Jones MD Primary Care Provider + Encounter Details Date Type Department Care Team (Late st Contact Info) Description 11/10/2024 Procedure Pass [facility] Scan - [facility] [address] [place] [address] Social History Tobacco Use Types Packs/Day Years [...] 12/09/2025 3:20 PM EST Office Visit [facility] Endocrinology Clinic [address] [place] [address] [place] [address] Omari Potts DO [address] [place] [address] 01/31/2026 1:30 PM EDT Office Visit [facility] Neurology [address] [place] [address] Gabe Ramsey MD [address] [address] 05/02/2026 10:00 AM EDT Office Visit [facility] Neurology [address] [place] [address] Mellisa Monterroso FNP [address] [place] [address] documented as of this encounter Visit Diagnoses Not on filedocumented in this encounter Care Teams Overlock Waistline Joiner Relationship Specialty Start Date End Date Shanice Jones MD PCP - General 10/18/21 07/16/25 Shanice Jones MD [address] [place] [address] PCP - General Family Medicine 07/17/25 documented as of this encounter Additional Source Comments The information contained in this document represents components of the legal health record. It is not the complete legal health record.[facility]
--- OUTSIDE RECORDS SUMMARY | 2025-11-08 17:22 | XMS_ITS | Encounter Summary ---
Author Organization [facility] Address [address] [place] [address] Phone Care Team Providers Care Router Machine Operator Name Role Phone Shanice Jones MD Primary Care Provider + Encounter Details Date Type Department Care Team (Latest Contact Info) Description 08/09/2025 Transcribe Orders [facility] Phleb Doris [address] 2[address] Floor [place], [place] [id number] Jaimee Coats, FINGERPRINT CLASSIFIER [address] [place] [address] Need for hepatitis B screening test (Primary [...] Description 12/09/2025 3:20 PM EST Office Visit [facility] Endocrinology Clinic [address] [place] [address] Omari Potts DO [address] [place] [address] 01/31/2026 1:30 PM EDT Office Visit [facility] Neurology [facility] [address] [place] [address] Gabe Ramsey MD [address] [address] [email or web address] 05/02/2026 10:00 AM EDT Office Visit [facility] Neurology [facility] [address] [place] [address] Mellisa Monterroso FNP [address] [address] [email or web address] documented as of this encounter Results * PT-INR (08/09/2025 3:32 PM EDT) Pathologist [facility] PT 12.4 10.2 - 12.9 sec [facility] INR 1.0 0.9 - 1.1 [facility] Comment:Therapeutic range fo r oral Vitamin K antagonists: 2.0-3.5 Blood 08/09/2025 3:32 PM EDT 08/09/2025 3:49 PM EDT us Jaimee Coats [facility] LAB BLOOD BKR ORDERABLES F inal Result [address] [address] * (ABNORMAL) LFTs (hepatic panel) (08/09/2025 3:32 PM EDT) Pathologist [facility] ALKALINE PHOSPHATASE 113 39 - 117 U/L [facility] TOTAL BILIRUBIN 1.2 0.0 - 1.2 mg/dL [facility] DIRECT BILIRUBIN 0.4(H) 0.0 - 0.2 mg/dL [facility] Bilirubin (Indirect) 0.8 0 - 1.5 mg/dL [facility] AST 31 0 - 37 U/L [facility] ALT 24 0 - 40 U/L [facility] TOTAL PROTEIN 7.5 6.5 - 8.0 g/dL [facility] ALBUMIN 4.6 3.9 - 4.8 g/dL [facility] GLOBULIN 2.9 1 - 4.8 g/dL [facility] A/G Ratio 1.59 1.00 - 4.80 RATIO [facility] Blood 08/09/2025 3:32 PM EDT 08/09/2025 3:49 PM EDT Jaimee Coats [facility] BLOOD BKR ORDERABLES F inal Result Performing Organization Address [facility]/ZIP Co de Phone Number [address] [address] * Hepatitis C antibody, qualitative (08/09/2025 3:32 PM EDT) HCV NON-REACTIV E NON-REACTI VE [facility] Blood 08/09/2025 3:32 PM EDT 08/09/2025 3:49 PM EDT Jaimee Coats [facility] BLOOD BKR ORDERABLES E dited Result - Final Performing Organization Address [facility]/ZIP Co de Phone Number [address] [address] * Hepatitis B surface antibody (08/09/2025 3:32 PM EDT) HBV SURFACE ANTIBODY Reactive [facility] Comment: Unvaccinated: Non Reactive Vaccinated: Reactive Blood 08/09/2025 3:32 PM EDT 08/09/2025 3:49 PM EDT Jaimee Coats [facility] BLOOD BKR ORDERABLES E dited Result - Final Performing Organization Address [facility]/ZIP Co de Phone Number [address] [address] * Hepatitis B surface antigen (08/09/2025 3:32 PM EDT) HBV SURFACE ANTIGEN NON-REACTI VE NON-REACTI VE [facility] Blood 08/09/2025 3:32 PM EDT 08/09/2025 3:49 PM EDT Jaimee Coats [facility] BLOOD BKR ORDERABLES E dited Result - Final Performing Organization Address [facility]/ZIP Co de Phone Number [address] [address] * Hemoglobin A1c (08/09/2025 3:32 PM EDT) HEMOGLOBIN A1C 5.6 4.3 - 5.8 % [facility] Blood 08/09/2025 3:32 PM EDT 08/09/2025 9:06 PM EDT Jaimee Coats [facility] BLOOD BKR ORDERABLES F inal Result Performing Organization Address [facility] Co de Phone Number [address] [address] * (ABNORMAL) Liver fibrosis test (08/09/2025 3:32 PM EDT) Fibrosis score 0.49 [facility] Interpretation (Fibrosis) SEE NOTE [facility] Comment: (NOTE) moderate fibrosis Fibro Test Score [...] HCV Fibrosis Grade F2 Q [facility] NECROINFLAMM SCORE 0.14 Q [facility] NECROINFLAMM GRADE A0 Q [facility] NECROINFLAMM INTERP SEE NOTE [facility] Comment: (NOTE) no activity ActiTest Score [...] A2 Macroglobulin 165 106 - 279 mg/dL [facility] Haptoglobin 140 43 - 212 mg/dL [facility] Apolipoprotein A1 120 101 - 198 mg/dL [facility] TOTAL BILIRUBIN 1.3(H) 0.2 - 1.2 mg/dL [facility] GGT 125(H) 3 - 65 U/L [facility] ALT 24 6 - 29 U/L [facility] Specimen/Product ID [id number] [facility] Comments (Chemistry) SEE NOTE [facility]/ [facility] Comment: (NOTE) The reliability of results is dependent on compliance with the preanalytical and analytical conditions recommended by [employer]. The tests have to be deferred for: [...] The performance characteristics have been determined by [employer] [facility]. It has not been cleared or approved by the U.S. Food and Drug Administration. Performance characteristics refer to the analytical performance of the test. [employer], [employer], the associated logo, [employer] and all associated [employer] martinez are the registered trademarks of [employer]. All third libertarian martinez - (R) and (TM) - are the property of their respective owners. (C) [id number] [employer]. All rights reserved. Blood 08/09/2025 3:32 PM EDT 08/09/2025 3:50 PM EDT Jaimee Coats [facility] BLOOD BKR ORDERABLES F inal Result [employer] [facility] [address] [place] [address], [facility] [phone] * Ceruloplasmin (08/09/2025 3:32 PM EDT) CERULOPLASMIN 27 20 - 60 mg/dL [facility] Blood 08/09/2025 3:32 PM EDT 08/09/2025 3:49 PM EDT Jaimee Shazia Jorge L [facility] BLOOD ORDERABLES Final Result [facility] [address] [place] [address] * Immunoglobulin A (08/09/2025 3:32 PM EDT) IgA 299 70 - 400 mg/dL [facility] Blood 08/09/2025 3:32 PM EDT 08/09/2025 3:49 PM EDT Jaimee Mccray Jorge L [facility] BLOOD BKR ORDERABLES F inal Result Performing Organization Address City/[facility]/ZIP Co de Phone Number [facility] [address] [place] [address] * Tissue transglutaminase IgA (08/09/2025 3:32 PM EDT) TTG IGA ANTIBODY 1.3 <4.0 (Negative) U/mL [facility] MED[facility] Blood 08/09/2025 3:32 PM EDT 08/09/2025 3:50 PM EDT Jaimee Coats [facility] BLOOD BKR ORDERABLES F inal Result Performing Organization Address [facility] Co de Phone Number [facility] MED/[address] [place] [address] * Smooth Muscle Antibody (08/09/2025 3:32 PM EDT) ANTI-SMOOTH MUSCLE AB Negative Negative [facility] Comment: (NOTE) Negative: No further testing will be performed ADDITIONAL INFORMATION This test was developed and its performance characteristics determined by [facility] in a manner consistent with CLIA requirements. This test has not been cleared or approved by the U.S. Food and Drug Administration. Blood 08/09/2025 3:32 PM EDT 08/09/2025 3:50 PM EDT Jaimee Coats [facility] BLOOD ORDERABLES Final Result Performing Organization Address [facility] Co de Phone Number [facility] MED/[address] [place] [address] * Antinuclear antibody (PATRICK) (08/09/2025 3:32 PM EDT) PATRICK SCREEN ON HEP 2 Negative Negative [facility] Blood 08/09/2025 3:32 PM EDT 08/09/2025 3:49 PM EDT Jaimee Coats [facility] BLOOD BKR ORDERABLES F inal Result Performing Organization Address [facility]/ZIP Co de Phone Number [address] [address] * Anti-Mitochondrial Antibody (AMA) (08/09/2025 3:32 PM EDT) [facility] MITOCHONDRIAL AB M2 <0.1 <0.1 (Negative) U [facility] Blood 08/09/2025 3:32 PM EDT 08/09/2025 3:50 PM EDT Jaimee Coats [facility] BLOOD ORDERABLES Final Result Performing Organization Address [facility] de Phone Number [facility] [address] [place] [address] * AFP (non-maternal specimens) (08/09/2025 3:32 PM EDT) [facility] AFP (NON-MATERNAL) 2.5 <7.9 ng/mL [facility] Comment: Test Methodology [facility] e801 Patient results determined by assays using different manufacturers or methods may not be comparable. Blood 08/09/2025 3:32 PM EDT 08/09/2025 3:49 PM EDT [facility] BLOOD BKR ORDERABLES F inal Result Performing Organization Address [facility] Co de Phone Number [address] [address] * Zmzri-8-qjwvjxjolll phenotyping (08/09/2025 3:32 PM EDT) [facility] ALPHA 1 ANTITRYPSIN 141 100 - 190 mg/dL [facility] Comment: (NOTE) ADDITIONAL INFORMATION Method: Nephelometry A1A PHENOTYPE MM bands [facility] Comment: (NOTE) A single M isoform is detected. In the context of a normal oremp-0-fbdxaogpyuu concentration, this is consistent with an MM phenotype. ADDITIONAL INFORMATION Method: Isoelectric Focusing, This assay identifies the phenotype of the circulating bjqpo-4-wzdgiwrnmqh (A1A) protein. If the patient is on replacement therapy or has been recently transfused, the phenotype will detect patient and replacement or transfused plasma A1A protein. This test also cannot detect a null allele which could be responsible for an A1A deficiency. Blood 08/09/2025 3:32 PM EDT 08/09/2025 3:50 PM EDT Jaimee Coats [facility] BLOOD ORDERABLES Final Result [facility] [address] [place] [address] documented in this encounter Visit Diagnoses Diagnosis Need for hepatitis B screening test- Primary Liver lesion Other specified disorders of liver Hepatic cirrhosis, unspecified hepatic cirrhosis type, unspecified whether ascites present Gastroesophageal reflux disease without esophagitis Esophageal reflux documented in this encounter Care Teams Router Machine Operator Relationship Specialty Start Date End Date Shanice Jones MD [address] [place] [address] PCP - General Family Medicine 07/17/25 documented as of this encounter Additional Source Comments The information contained in this document represents components of the legal health record. It is not the complete legal health record.[facility]
--- OUTSIDE RECORDS SUMMARY | 2025-11-08 17:22 | XMS_ITS | Encounter Summary ---
Author Organization [facility] Address [address] [place] [address] Phone Care Team Providers Care Airbrush Artist Technical Name Role Phone Shanice Jones MD Primary Care Provider + Shanice Jones MD Primary Care Provider + Encounter Details Date Type Department Care Team (Late st Contact Info) Description 04/01/2025 Procedure Pass [facility], [address] [address] Social History Tobacco Use Types Packs/Day Years [...] 12/09/2025 3:20 PM EST Office Visit [facility] Endocrinology Clinic [address] [place] [address] [place] [address] Omari Potts DO [address] [place] [address] 01/31/2026 1:30 PM EDT Office Visit [facility] Neurology [address] [place] [address] Gabe Ramsey MD [address] [place] [address] 05/02/2026 10:00 AM EDT Office Visit [facility] Neurology [address] [place] [address] Mellisa Monterroso FNP [address] [place] [address] documented as of this encounter Visit Diagnoses Not on filedocumented in this encounter Care Teams Airbrush Artist Technical Relationship Specialty Start Date End Date Shanice Jones MD PCP - General 10/18/21 07/16/25 Shanice Jones MD [address] [place] [address] PCP - General Family Medicine 07/17/25 documented as of this encounter Additional Source Comments The information contained in this document represents components of the legal health record. It is not the complete legal health record.[facility]
--- OUTSIDE RECORDS SUMMARY | 2025-11-08 17:22 | XMS_ITS | Encounter Summary ---
Author Organization [employer] Address [address] [place] [address] Care Team Providers Care Chief Payroll Clerk Name Role Phone Shanice Jones MD Primary Care Provider [phone] Sanaz Machuca Unavailable Encounter Details Date Type Department Care Team (Late st Contact Info) Description 03/23/2025 Orders Only [facility] MED & PEDS [address] [place] [address] ProviderMaurisio MD Social History Tobacco Use Types [...] Description 12/22/2025 11:30 AM EST Office Visit [facility] MEDICINE [address] [place] [phone] Shanice Jones MD [address] [phone] documented as of this encounter Procedures Procedure Name Priority Date/Time Associated Diagnosis Comments XR CERVICAL SPINE 3V Routine 03/30/2025 12:09 PM EDT HM COLONOSCOPY Routine 10/07/2024 10:40 AM EST documented in this encounter Results * XR CERVICAL SPINE 3V (03/30/2025 12:09 PM EDT) Anatomical Region Laterality Modality Abdomen Radiographic Haylie ging 03/30/2025 12:0 9 PM EDT Narrative 03/30/2025 1:37 PM EDT [address] [address] XRay Report Signed Patient: Lindsey Wilson MR#: [id number] : 1965 Acct:[id number] Age/Sex: 59 / F ADM Date: 03/30/25 [facility]: Shanice Jones MD Ordering Physician: Shanice Jones Date of Service: 03/30/25 Procedure(s): XR cervical spine 3V Accession Number(s): [id number] cc: Shanice Jones EXAMINATION: XR CERVICAL SPINE CLINICAL INFORMATION: PAIN COMPARISON: None available. TECHNIQUE: AP view cervical spine. Atlantoodontoid view. FINDINGS: Inadequate evaluation of the cervical spine. XR/XR cervical spine 3V IMPRESSION: Recommend lateral projection. Electronically signed by: Tomas Kathleen MD 03/30/2025 01:34 PM EDT RP Dictated By: Toams Michele MD Signed By: <Electronically signed by Tomas Hutchinson MD in OV> 03/30/25 1334 DD/ 1209 TD/TT: 03/30/25 1258 Supervisor Cell Room: Procedure Note Donotuseinterpreter, Image - 03/30/2025 [place] [address] XRay Report Signed Patient: Lindsey Wilson MR#: [id number] : 1965Acct:[id number] Age/Sex: 59 / FADM Date: 03/30/25 Loc: [facility] Attending Dr: Shanice Jones MD Ordering Physician: Shanice Jones Date of Service: 03/30/25 Procedure(s): XR cervical spine 3V Accession Number(s): [id number] cc: Shanice Jones EXAMINATION: XR CERVICAL SPINE [...] 03/30/25 1334 DD/ 1209 TD/TT: 03/30/25 1258 Supervisor Cell Room: Shanice Jones MD IMG XR PROCEDURES Final Result * Hm Colonoscopy (10/07/2024 10:40 AM EST) Colonoscopy Normal Normal Narrative Idalmis Huber - 10/07/2024 10:40 AM EST Recommended 10 years . see results scanned in intermediate teacher on 10/07/2024 Historical Provider HEALTH MAINTENANCE Edited Result - Final documented in this encounter Visit Diagnoses Not on filedocumented in this encounter Care Teams Chief Payroll Clerk Relationship Specialty Start Date End Date Shanice Jones MD [address] [place] [address] PCP - General Family Medicine 12/22/20 Sanaz Machuca 07/19/25 07/23/25 Cary Alonzo Range FeederHandtools Repairer 08/26/24 Himanshu Caring 12/26/24 09/05/25 Olamide Buitrago Range FeederHandtools Repairer 08/11/25 Morenita 08/26/25 documented as of this encounter
--- OUTSIDE RECORDS SUMMARY | 2025-11-08 17:22 | XMS_ITS | Encounter Summary ---
Author Organization [facility] Address [address] [place] [address] Phone Care Team Providers Care Safety Investigator Name Role Phone Shanice Jones MD Primary Care Provider + Shanice Jones MD Primary Care Provider + Encounter Details Date Type Department Care Team (Latest Contact Info) Description 07/28/2024 Transcribe Orders Virtual Department [address] [place] [address] Jaimee Coats, EUFEMIA [address] [place] [address] [email or web address] Elevated LFTs (Primary Dx) Social History Tobacco [...] 12/09/2025 3:20 PM EST Office Visit [facility] Endocrinology Clinic [address] [place] [address] Omari Potts DO 22 [place] [address] 01/31/2026 1:30 PM EDT Office Visit [facility] Neurology [address] [place] [address] Gabe Ramsey MD [address] [address] 05/02/2026 10:00 AM EDT Office Visit [facility] Neurology [address] [place] [address] Mellisa Monterroso FNP [address] [address] [email or web address] documented as of this encounter Results * [...] clinician's provided indication for this examination in [facility]: Outside Radiology Order; elevated lft's TECHNIQUE: US [...] clinician's provided indication for this examination in [facility]:Outside Radiology Order; elevated lft's TECHNIQUE: US Abdominal [...] nosonographic evidence for focal hepatic lesion. Jaimee Coats CNP IM US ABDOMEN Final Resu lt documented in this encounter Visit Diagnoses Diagnosis Elevated LFTs- Primary Other abnormal blood chemistry Elevated LFTs Other abnormal blood chemistry documented in this encounter Care Teams Safety Investigator Relationship Specialty Start Date End Date Shanice Jones MD PCP - General 10/18/21 07/16/25 Shanice Jones MD [address] [place] [address] PCP - General Family Medicine 07/17/25 documented as of this encounter Additional Source Comments The information contained in this document represents components of the legal health record. It is not the complete legal health record.[facility]
--- OUTSIDE RECORDS SUMMARY | 2025-11-08 17:22 | XMS_ITS | Encounter Summary ---
Author Organization [employer] Address [address] [facility] 7t [place] [address] Care Team Providers Care Retail Brand Ambassador Name Role Phone Shanice Jones MD Primary Care Provider [phone] Sanaz Machuca Unavailable Reason for Referral * Consultation (Routine) - Closed Specialty Diagnoses / Procedures Referred By Contac t Referred To Contact Rheumatology Diagnoses Spinal arthritis Shanice Jones MD [address] [place] [address] Phone: tel: fax: [facility] [address] Phone: tel: fax: Referral ID Status Reason Start Date Expiration Date V isits Requested Visits Authorized [id number] Closed Specialty Services Required 04/03/2024 04/03/2025 1 1 Encounter Details Date Type Department Care Team (Late st Contact Info) Description 04/03/2024 Orders Only [facility] MEDICINE [address] [place], [place] [phone] Shanice Jones MD [address] [place], [place] [phone] Spinal arthritis (Primary Dx) Social History Tobacco [...] Description 12/22/2025 11:30 AM EST Office Visit [facility] MEDICINE [address] [place] [address] Shanice Jones MD [address] [place] [address] Scheduled Referrals Name Type Priority Associated Diagnoses [...] EDT) Sodium 140 135 - 145 mmol/L [facility] Potassium 4.2 3.3 - 5.1 mmol/L [facility] Chloride 105 96 - 108 mmol/L [facility] Carbon Dioxide 26 22 - 29 mmol/L [facility] Anion Gap 13 12 - 20 [facility] Urea Nitrogen (BUN) 17(H) 9 - 16 mg/dL [facility] Creatinine, Serum 0.84 0.5 - 1.4 mg/dL [facility] Creatinine Clr Calc Pharmacy 75.7 [facility] Comment:Provided height and weight: 160.02 cm,87.543 kg.eGFR (calculated from the MDRD study equation) and eCrCl(calculated from the Cockcroft-Gault equation) are based ondifferent parameters and may not yield comparable results.If eCrCl result is absurd, please check patient'sheight/weight. Estimated Glomerular Filt Rate >60 [facility] Comment:NOTE: For -Am erican individuals, multiply the result by 1.210.Chronic Kidney Disease: Estimated GFR < 60 mL/min/1.94w0Dobhdl Kidney Disease: Estimated GFR < 15 mL/min/1.73m2 Glucose 99 60 - 115 mg/dL [facility] Calcium 10.6(H) 8.4 - 10.2 mg/dL [facility] Bilirubin, Total 1.3(H) 0.0 - 1.0 mg/dL [facility] Aspartate Amino Transferase 52(H) 5 - 31 U/L [facility] Alanine Aminotransferase 45(H) 0 - 31 U/L [facility] Total Protein 7.7 6.5 - 8.0 g/dL [facility] Albumin Level 4.3 3.5 - 5.0 g/dL [facility] Alkaline Phosphatase 130(H) 39 - 117 U/L [facility] 06/15/2024 4:43 PM EDT 06/15/2024 4:47 PM EDT Generic External Data Provider LAB BLOOD ORDERAB LES Final Result Performing Organization Address [facility] Co de Phone Number [facility] [address] [place] [phone] * Partial Thromboplastin Time, Activated (APTT) (06/15/2024 4:43 PM EDT) Partial Thromboplastin Time 28.6 26.0 - 36.8 SEC [facility] Comment:For information rega rding the monitoring of direct thrombininhibitors, please refer to Pharmacy. 06/15/2024 4:43 PM EDT 06/15/2024 4:47 PM EDT Generic External Data Provider LAB BLOOD ORDERAB LES Final Result Performing Organization Address [facility] Co de Phone Number [facility] [address] [place] [phone] * Prothrombin Time-INR (06/15/2024 4:43 PM EDT) Prothrombin Time 12.2 11.1 - 13.3 SEC [facility] INTERNATIONAL NORM RATIO 1.0 0.9 - 1.1 [facility] Comment:INTERNATIONAL NORMAL IZED RATIO (INR) REFERENCE [...] Provider LAB BLOOD ORDERAB LES Final Result [facility] [address] [place] [phone] [phone] * (ABNORMAL) CBC auto differential (06/15/2024 4:43 PM EDT) White Blood Count 8.1 4.8 - 10.8 X10*3/uL [facility] Red Blood Count 4.16(L) 4.20 - 5.50 X10*6/uL [facility] Hemoglobin 11.5(L) 12.0 - 16.0 g/dl [facility] Hematocrit 36.0(L) 37.0 - 47.0 % [facility] Mean Corpuscular Volume 86.5 80.0 - 98.0 fL [facility] Mean Corpuscular Hemoglobin 27.6 27.0 - 33.0 pg [facility] Mean Corpuscular HGB Conc 31.9 31.0 - 35.0 g/dl [facility] Red Cell Distribution Width 17.1(H) 11.0 - 16.0 % [facility] Platelet Count 105(L) 160 - 400 X10*3/uL [facility] Mean Platelet Volume 9.8 9.4 - 12.3 fL [facility] Neutrophils Percent Auto 56.5 45 - 73 % [facility] Imm Gran Pct Auto 0.2 0.0 - 0.4 % [facility] Lymphocytes Percent Auto 32.4 20 - 40 % [facility] Monocytes Percent Auto 6.8 2 - 11 % [facility] Eosinophils Percent Auto 3.2 0 - 4 % [facility] Basophils Percent Auto 0.9 0 - 2 % [facility] NRBC Pct Auto 0.0 0.0 - 0.2 /100WBC [facility] Neutrophils Absolute Auto 4.6 2.0 - 8.3 x10*3/uL [facility] Imm Gran Abs Auto 0.02 0.00 - 0.03 X10*3/uL [facility] Lymphocytes Absolute Auto 2.6 1.2 - 4.9 X10*3/uL [facility] Monocytes Absolute Auto 0.6 0.1 - 1.2 X10*3/uL [facility] Eosinophils Absolute Auto 0.3 0.0 - 0.4 X10*3/uL [facility] Basophils Absolute Auto 0.1 0.0 - 0.2 X10*3/uL [facility] NRBC Abs Auto 0.000 0.0 - 0.012 X10*3/uL [facility] 06/15/2024 4:43 PM EDT 06/15/2024 4:47 PM EDT us Generic External Data Provider LAB BLOOD ORDERAB LES Final Result Performing Organization Address City/State/[facility] Co de Phone Number [facility] [address] [place] [phone] [phone] documented in this encounter Visit Diagnoses Diagnosis Spinal arthritis- Primary documented in this encounter Care Teams Retail Brand Ambassador Relationship Specialty Start Date End Date Shanice Jones MD [address] [place] [phone] PCP - General Family Medicine 12/22/20 Sanaz Machuca 07/19/25 07/23/25 Cary Alonzo Glacing Machine TenderApigee Developer 08/26/24 Elara Caring 12/26/24 09/05/25 Olamide Buitrago Glacing Machine TenderApigee Developer 08/11/25 Aveadanniea 08/26/25 documented as of this encounter
--- OUTSIDE RECORDS SUMMARY | 2025-11-08 17:22 | XMS_ITS | Encounter Summary ---
Author Organization [email or web address] Address [address] [place] [address] 7 [place] [address] Care Team Providers Care Metal Fabricating Shop Helper Name Role Phone Shanice Jones MD Primary Care Provider [phone] Encounter Details Date Type Department Care Team ([facility] st Contact Info) Description 10/22/2025 Results Follow-Up [facility] MEDICINE [address] [place], [place] [phone] Elizabeth Ross NP [address] [place] [address] POCT Glucose, POCT Hgb A1c Social History Tobacco Use Types Packs/Day Years [...] Description 12/22/2025 11:30 AM EST Office Visit [facility] MEDICINE [address] [place] [phone] Shanice Jones MD [address] [place] [phone] documented as of this encounter Visit Diagnoses Not on filedocumented in this encounter Additional Health Concerns Assessment Noted Time PHQ-9 Depression Total Score: 6 03/26/20 25 4:46 PM EDT documented as of this encounter Care Teams Metal Fabricating Shop Helper Relationship Specialty Start Date End Date Shanice Jones MD [address] [place] [phone] PCP - General Family Medicine 12/22/20 Cary Alonzo MagistrateCustodial Laborer 08/26/24 Olamide Buitrago MagistrateCustodial Laborer 08/11/25 Avsuzy 08/26/25 documented as of this encounter
--- OUTSIDE RECORDS SUMMARY | 2025-11-08 17:22 | XMS_ITS | Encounter Summary ---
Author Organization [facility] Address [address] [place] [address] Phone Care Team Providers Care Hand Heel Seat Fitter Name Role Phone Shanice Jones MD Primary Care Provider + Encounter Details Date Type Department Care Team (Late st Contact Info) Description 07/17/2025 Procedure Pass [facility], Ct Scan - [facility] [address] [place] [address] Social History Tobacco Use Types Packs/Day Years [...] Description 12/09/2025 3:20 PM EST Office Visit [facility] [address] [place] [address] [place] [address] Omari Potts DO [address] [place] [address] [email or web address] 01/31/2026 1:30 PM EDT Office Visit [facility] Neurology [facility] [address] [place] [address] [place] [address] Gabe Ramsey MD [address] [place] [address], 2nd [place] [address] 05/02/2026 10:00 AM EDT Office Visit [facility] [address] [place] [address] Mellisa Monterroso FNP [address] [facility], 2nd [place] [address] [email or web address] documented as of this encounter Visit Diagnoses Not on filedocumented in this encounter Care Teams Hand Heel Seat Fitter Relationship Specialty Start Date End Date Shanice Jones MD [address] [place] [phone] PCP - General Family Medicine 07/17/25 documented as of this encounter Additional Source Comments The information contained in this document represents components of the legal health record. It is not the complete legal health record.[facility]
--- OUTSIDE RECORDS SUMMARY | 2025-11-08 17:22 | XMS_ITS | Encounter Summary ---
Author Organization [employer] [facility] Address [address] [place] [address] 7 [place] [address] Care Team Providers Care Electric Utility Lineworker Name Role Phone Shanice Jones MD Primary Care Provider [phone] Sanaz Machuca Unavailable Encounter Details Date Type Department Care Team (Latest Contact Info) Description 12/05/2018 Abstract [facility] CONVERSIONS Dental, Provider, DDS Social [...] Description 12/22/2025 11:30 AM EST Office Visit [facility] MEDICINE [address] [place] [address] Shanice Jones MD [address] [place] [address] documented as of this encounter Visit Diagnoses Not on filedocumented in this encounter Care Teams Electric Utility Lineworker Relationship Specialty Start Date End Date Shanice Jones MD [address] [place], [place] [phone] PCP - General Family Medicine 12/22/20 Sanaz Machuca 07/19/25 07/23/25 Cary Alonzo Conditioner TumblerGroup Worker 08/26/24 Himanshu Caring 12/26/24 09/05/25 Olamide Buitrago Conditioner TumblerGroup Worker 08/11/25 Morenita 08/26/25 documented as of this encounter
--- OUTSIDE RECORDS SUMMARY | 2025-11-08 17:22 | XMS_ITS | Encounter Summary ---
Author Organization [facility] Address [address] [place] [address] Phone Care Team Providers Care Underpresser Hand Name Role Phone Shanice Jones MD Primary Care Provider + Encounter Details Date Type Department Care Team (Late st Contact Info) Description 07/17/2025 Procedure Pass [facility], Ct Scan - [facility] [address] [place] [address] Social History Tobacco Use Types Packs/Day Years [...] Description 12/09/2025 3:20 PM EST Office Visit [facility]ology [facility] [address] [place] [address] [place] [address] Omari Potts DO [address] [place] [phone] [email or web address] 01/31/2026 1:30 PM EDT Office Visit [facility]rology [facility] [address] [place] [address] [place] [address] Gabe Ramsey MD [address] [place] [address], 2nd [place] [address] 05/02/2026 10:00 AM EDT Office Visit [facility] [address] [place] [address] Mellisa Monterroso FNP [address] [facility], 2nd [place] [address] [email or web address] documented as of this encounter Visit Diagnoses Not on filedocumented in this encounter Care Teams Underpresser Hand Relationship Specialty Start Date End Date Shanice Jones MD [address] [place] [phone] PCP - General Family Medicine 07/17/25 documented as of this encounter Additional Source Comments The information contained in this document represents components of the legal health record. It is not the complete legal health record.[facility]
--- OUTSIDE RECORDS SUMMARY | 2025-11-08 17:23 | XMS_ITS | Encounter Summary ---
Author Organization [facility] Address [address] [place] [phone] Phone Care Team Providers Care Installer Interior Assemblies Name Role Phone Raad Lucas NP, Renetta Primary Care Provider Malaika Augustin MD Primary Care Provider [phone] Shanice Jones MD Primary Care Provider + Shanice Jones MD Primary Care Provider + Encounter Details Date Type Department Care Team (Late st Contact Info) Description 02/24/2021 Procedure [facility] [address] [place] [address] [place] [address] Social History Tobacco Use Types Packs/Day Years [...] 12/09/2025 3:20 PM EST Office Visit [facility] [address] [place] [address] [place] [address] Omari Potts DO [address] [place] [address] 01/31/2026 1:30 PM EDT Office Visit [facility] Neurology [facility] [address] [place] [address] Gabe Ramsey MD 22 [facility], [address] [place] [phone] [email or web address] 05/02/2026 10:00 AM EDT Office Visit [facility] [address] [place] [address] Mellisa Monterroso FNP 15 [facility], [address] [place] [address] [email or web address] documented as of this encounter Visit Diagnoses Not on filedocumented in this encounter Additional Health Concerns Infection Onset Date Last Indicated Resolved Time CoV-Risk 02/20/2022 02/20/2022 03/03/2022 1:24 AM EDT CoV-Risk 06/05/2024 06/05/2024 06/16/2024 1:22 AM EDT documented as of this encounter Care Teams Installer Interior Assemblies Relationship Specialty Start Date End Date Renetta Shankar NP PCP - General 07/08/20 06/04/21 Malaika Moeller MD 15 [facility] [address] [place] [address] PCP - General Family Medicine 06/05/21 10/17/21 Shanice Jones MD 15 [facility] [address] [place] [address] PCP - General 10/18/21 07/16/25 Shanice Jones MD [address] [place] [address] PCP - General Family Medicine 07/17/25 documented as of this encounter Additional Source Comments The information contained in this document represents components of the legal health record. It is not the complete legal health record.[facility]
--- OUTSIDE RECORDS SUMMARY | 2025-11-08 17:23 | XMS_ITS | Clinical Summary ---
Author Organization [employer] Address [address] [place] [address] 7 [place] [address] Care Team Providers Care Management Instructor Name Role Phone Shanice Jones MD Primary Care Provider [phone] Allergies Active Allergy Reactions Criticality Noted Date Comments Egg Protein (Egg White) Rash Low 07/26/2020 Latex Rash Low 12/05/2018 Other reaction(s): Rash Magnesium Palpitations Low 09/17/2025 Milk (Cow) 09/17/2025 Other Reaction(s): stomach pain, red rash Penicillins Rash Low 10/23/2012 Other reaction(s): Rash [...] breakfast, before lunch, and before evening meal. 08/18/2 021 Active Lantus SoloStar 100 UNIT/ML pen [...] 3 (three) months. Active Easy Touch Pen [place] 31G X 6 MM miscIndications :Type 2 [...] MOUTH EVERY MORNING 90 tablet 3 Active levothyroxine (Synthroid, Levoxyl) 50 MCG tablet TAKE 1 TABLET BY MOUTH EVERY MORNING 30-60 MINUTES BEFORE MEALS OR FOOD 90 tablet 3 10/22/20 8:49 AM EST 025 Active docusate sodium (Colace) 100 MG capsule Take 1 capsule (100 mg) by mouth Once per day. 90 capsule 3 10/22/20 8:49 AM EST 025 2025 Active QUEtiapine (SEROquel) 25 MG tablet TAKE 1 TABLET BY MOUTH AT BEDTIME NEEDED FOR SLEEP 30 tablet 11 10/22/20 8:48 AM EST 025 Active nystatin (Mycostatin) creamIndication s:Rash Apply topically 2 times daily. 30 g 3 025 2025 Active triamcinolone (Kenalog) 0.1 % creamIndication s:Rash Apply topically if needed in the morning and at bedtime for rash. 45 g 2 025 Active thiamine (Vitamin B-1) 50 MG tablet TAKE 1 TABLET BY MOUTH EVERY MORNING 90 tablet 3 Active senna (Senokot) 8.6 MG tablet TAKE 1 TABLET BY MOUTH TWICE DAILY IN THE MORNING AND AT BEDTIME NEEDED FOR CONSTIPATION 180 tablet 1 Active polyethylene glycol, PEG, 3350 (MiraLax) 17 GM/SCOOP powderIndicatio ns:Slow transit constipation Take 17 g by mouth if needed each day (constiaption, do not exceed two doses weekly,). 527 g 1 Active pregabalin (Lyrica) 200 MG capsule Take 1 capsule (200 mg) by mouth Once per day. 90 capsule 3 025 Active lidocaine (Xylocaine) 5 % ointment APPLY TOPICALLY TO THE AFFECTED AREA(S) THREE TIMES DAILY IN THE MORNING, AT NOON, AND AT BEDTIME NEEDED FOR PAIN OF NECK 35.44 g 3 025 Active Ferrous Sulfate (iron) 325 (65 Fe) MG tablet TAKE 1 TABLET BY MOUTH EVERY MORNING 90 tablet 1 10/22/20 8:49 AM EST 025 Active sucralfate (Carafate) 1 g tablet TAKE 1 TABLET BY MOUTH EVERY TWELVE HOURS NEEDED FOR HEARTBURN 60 tablet 3 025 Active prazosin (Minipress) 1 MG capsule Active meclizine (Antivert) 12.5 MG tablet TAKE 2 TABLETS BY MOUTH THREE TIMES A DAY FOR 10 DAYS. Active lisinopril 10 MG tablet Active insulin regular (NovoLIN R FlexPen) 100 UNIT/ML pen Inject 15 Units under the skin. Active hydrOXYzine HCl (Atarax) 25 MG tablet TAKE 1 TABLET BY MOUTH 4 HOURS AFTER CLONAZEPAM NEEDED. MAY REPEAT 3 TIMES DURING THE DAILY NEEDED Active Fluticasone-Howard meterol 500-50 MCG/ACT aerosol powder Inhale. Active fluticasone (Flonase) 50 MCG/ACT nasal spray Active carvedilol (Coreg) 3.125 MG tablet Take 3.125 mg by mouth. Active Aspirin Low Dose 81 MG EC tablet TAKE 1 TABLET BY MOUTH EVERY MORNING 90 tablet 3 Active Ferrous Sulfate (iron) 325 (65 Fe) MG tablet TAKE 1 TABLET BY MOUTH EVERY MORNING 90 tablet 1 025 2024 Discontinued sucralfate (Carafate) 1 g tablet TAKE 1 TABLET BY MOUTH EVERY TWELVE HOURS NEEDED FOR HEARTBURN 60 tablet 3 025 2024 Discontinued Aspirin Low Dose 81 MG EC tablet Take 1 tablet (81 mg) by mouth in the morning. 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, unspecified emphysema type 11/03/2025 Closed right ankle fracture 11/03/2025 Head injury 11/03/2025 JENNYFER (obstructive sleep apnea) 11/03/2025 Nocturia more than twice per night 11/03/2025 Impingement syndrome of left shoulder 11/03/2025 History of nephrolithiasis 11/03/2025 Dyspnea 11/03/2025 Delayed gastric emptying 11/03/2025 Chronic idiopathic constipation 11/03/2025 External hemorrhoids 11/03/2025 Preoperative general physical examination 2024 Closed fracture of distal en d of right fibula with routine healing 08/09/2025 Assessment & Plan (08/09/2025 5:07 PM EDT): Orders: Referral to Orthopaedic Surgery; Future Chronic left shoulder pain 08/09/2025 Assessment & Plan (08/09/2025 5:07 PM EDT): Orders: Referral to Orthopaedic Surgery; Future Acute thoracic back pain 08/09/2025 Assessment & Plan (08/09/2025 5:07 PM EDT): Orders: Referral to General Surgery; Future Hypothyroidism 07/21/2025 Gastroesophageal reflux disease without esophagi tis 07/21/2025 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 Will extend PT-1 to her other providers Depression, unspecified 12/21/2024 Anxiety disorder 12/21/2024 Portal hypertensive gastropathy (CMS/HCC) (CMS/ HCC) 10/12/2024 Fatty liver 10/12/2024 Overview (10/12/2024): 1. 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.Nondominant right vertebral artery is diminutive throughout, not [...] has had difficult maintaining appointments at [facility] [address], would like to come close to where she lives at [facility] Exercise counseling 02/13/2023 Left ankle sprain 11/20/2022 Assessment & Plan (02/13/2023 3:37 PM EDT): Continue followup with ortho and PT at [facility] Did gait training at PT as she says it is difficult to walk, even with a walker and complains of frequent falls Awaiting ganchos , which translates from Bengali to braces Assessment & Plan (11/20/2022 10:28 AM EST): Continue followup with ortho and PT at [facility] Request gait training at PT as she says it is difficult to walk, even with a walker and complains of frequent falls Malignant neoplasm of endometrium (CMS/HCC) 07/2023 Assessment & Plan (09/04/2024 12:53 PM EDT): No AUB currently Assessment & Plan (11/20/2022 10:25 AM EST): She is worried about reoccurance of neoplasm Will check CBC Ensure followup with clinical admissions manager onc No vaginal bleeding currently Ptosis of [...] 10/18/2021 Overview (11/05/2024): Per lexie Mckeon at [facility]: Fair control hemoglobin A1c 7.2% but she [...] weekly -called px [employer] 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 05/28/[address] Potts -PCP apt 05/29/2024 Assessment & Plan (01/20/2024 12:53 PM EDT): Followed by [facility] endocrinology Assessment & Plan (11/20/2022 10:27 AM EST): Followed by [facility] endocrinology Gastroparesis 07/18/2021 Assessment & Plan (08/09/2025 5:07 PM EDT): Assessment & Plan (11/20/2022 10:26 AM EST): On Azithromycin three times weekly for prokinetic agent Tolerating this better than Reglan Saw [facility] for gastric pacemaker consult once [...] view, she had her aneurysm stented at [facility] 05/2024. If she can discontinue Plavix [...] Plan (02/13/2023 3:40 PM EDT): Discussed that [facility] published guidelines about coverage specifically state that there is no coverage for liposuction Recommend consultation with bariatric surgeon about weight loss, with her concerns about gastroparesis and the operation, she declines this referral for now Severe recurrent major depression (CMS/HCC) 11/12 Assessment & Plan (06/01/2024 11:02 AM EDT): Seen at [facility], last apt emiliano psychiatrist 05/21/2024 -Denies SI - needs refill [...] connected to a therapist and psychiatrist at [facility]. She meets with her therapist [...] Encounters Date Type Department Care Team Description 11/04/2025 Refill [facility] [place] [address] Shanice Jones MD 11/03/2025 Telephone [facility] [place] [address] Shanice Jones MD letter 11/03/2025 Refill [facility] [place] [address] Shanice Jones MD 11/01/2025 2:45 PM EST Office Visit [facility] [place] [address] Shanice Jones MD Chronic obstructive pulmonary disease with emphysema, unspecified emphysema type (HCC) (Primary Dx); Preoperative general physical examination 11/01/2025 Travel 11/01/2025 Telephone [facility] [place] [address] Shanice Jones MD Call Back Request 10/29/2025 Telephone [facility] [place] [address] Shanice Jones MD Chart Prep 10/26/2025 Telephone [facility] [place] [address] Elizabeth Ross NP Results 10/26/2025 Telephone [facility] [place] [address] Shanice Jones MD Referral 10/26/2025 Telephone [facility] [place] [place] [address] Elizabeth Ross NP Results 10/22/2025 Telephone [facility] [place] [address] Shanice Jones MD FYI 10/22/2025 Results Follow-Up [facility] [place] [address] Elizabeth Ross NP POCT Glucose, POCT Hgb A1c 10/21/2025 Telephone [facility] [address] [place] [phone] Jenny Leyva RN 10/20/2025 2:15 PM EST Office Visit [address] [address] Elizabeth Ross NP Pre-operative exam (Primary Dx); Essential hypertension; Mild persistent asthma without complication; Type 2 diabetes mellitus with hyperglycemia, with long-term current use of insulin ([facility]); Class 1 obesity; Insomnia due to other mental disorder; Angina pectoris 10/20/2025 Travel 10/20/2025 Telephone [facility] [address] [place] [phone] Shanice Jones MD Chart Prep 10/13/[address] [address] Shanice Jones MD Medication Question 10/06/[address] [address] Shanice Jones MD fyi 10/06/[address] [address] Shanice Jones MD 09/28/2025 Patient Outreach [address] [address] Shanice Jones MD Care Coordination (CHW outreach for SDOH PT-1 and food needs-referral completed /) 09/28/[address] [address] Shanice Jones MD PT-1 09/28/[address] [address] Shanice Jones MD Nurse Triage 09/17/[address] [address] Shanice Jones MD FYI 09/16/[address] [address] Shanice Jones MD Pre Op 09/09/[address] [address] Shanice Jones MD chart prep 09/08/[address] [address] Shanice Jones MD FYI 09/01/[address] [address] Shanice Jones MD Durable Medical Equipment (DME: Bed Rail) 08/29/[address] [address] Shanice Jones MD 08/26/[address] [address] Shanice Jones MD Durable Medical Equipment (DME Request: Bedside Commode) 08/26/[address] [address] Shanice Jones MD Verbal Order; Referral-Ortho 08/20/[address] [address] Shanice Jones MD 08/18/[address] [address] Shanice Jones MD Call Back Request 08/11/[address] [facility] [address] [place], [place] [phone] Shanice Jones MD Care Coordination (ICP Care Plan) 08/09/2025 9:45 AM EDT Office Visit [address] [address] Anupama Brooks NP Other closed fracture of distal end of right fibula with routine healing, subsequent encounter (Primary Dx); Frequent falls; Gastroparesis; Type 2 diabetes mellitus with hyperglycemia, with long-term current use of insulin ([facility]); Slow transit constipation; Chronic left shoulder pain; Acute thoracic back pain, unspecified back pain laterality 08/09/[address] [address] Anupama Brooks NP Physical Therapy and VNA 08/09/2025 Travel 08/09/[address] [address] Shanice Jones MD HDF appt 08/09/2025 Telephone [facility] [address] [facility] [place] [address] Shanice Jones MD Chart Prep 08/09/2025 Refill [facility] [address] [facility] [place] [address] Shanice Jones MD from Last 3 Months [...] Sign Reading Time Taken Comments Blood Pressure 108/62 11/01/2025 2:59 PM EST Pulse 72 11/01/2025 2:59 PM EST Temperature 36.2 C (97.2 F) 11/01/2025 2:59 PM EST Respiratory Rate 20 11/01/2025 2:59 PM EST Oxygen Saturation 96% 11/01/2025 2:59 PM EST Inhaled Oxygen Concentration - - Weight 77.7 kg (171 lb 6.4 oz) 11/01/2025 2:59 P M EST Height 160 cm (5' 3 ) 11/01/2025 2:59 PM EST Body Mass Index 30.36 11/01/2025 2:59 PM EST Plan of Treatment Upcoming Encounters Date Type Department Care Team (Late st Contact Info) Description 12/22/2025 11:30 AM EST Office Visit [facility] [address] [place] [address] Shanice Jones MD [address] [place] [address] Health Maintenance Due Date Last Done Comments CT Colonography 1965 FIT DNA/Cologuard 1965 FOBT 1965 Sigmoidoscopy 1965 Diabetes: Foot Exam 1975 Eye Exam 1975 Hepatitis A Vaccines (1 of 2 - Risk 2-dose series) 1984 RSV Patients and Patients Aged 60 years or older (1 - Risk 50-74 years 1-dose series) 2015 Lipid Panel 06/05/2025 06/05/2024, 01/09, 01/02/2023, Additional history exists Mammogram 06/10/2025 06/10/2024, 06/12, 03/19/2019, Additional history exists COVID-19 Vaccine ( season) 2025 12/01/2021, 01/25/2021 FIT 07/28/2025 07/28/2024 Diabetes: Urine Protein Screening 02/16/2026 02/16/2025, 06/05/2024, 06/05/2024, Additional history exists Depression Screening 03/26/2026 03/26/2025, 03/26/20 25 Diabetes: Hemoglobin A1C 04/20/2026 025, 08/09/2025, 08/09/2025, Additional history exists Disability Screening 08/09/2026 08/09/2025 SDOH Screening 08/09/2026 08/09/2025 Alcohol/Substance Use Screening 10/20/2026 10/20/2025 Tobacco Screening 11/01/2026 11/01/2025 DTaP/Tdap/Td Vaccines (3 - Td or Tdap) [...] Diagnosis Comments CBC WITH AUTO DIFFERENTIAL Routine 11/08/2025 3:25 PM EST Pre-operative exam Type 2 diabetes mellitus with hyperglycemia, with long-term current use of insulin (HCC) Class 1 obesity APTT Routine 11/08/2025 3:25 PM EST Pre-operative exam PROTHROMBIN TIME-INR Routine 11/08/2025 3:25 PM EST Pre-operative exam ECG 12-LEAD Routine 11/03/2025 8:38 AM EST Preoperative general physical examination POCT GLYCATED HEMOGLOBIN, TOTAL Routine 10/20/2025 2:14 PM EST Type 2 diabetes mellitus with hyperglycemia, with long-term current use of insulin (HCC) POCT GLUCOSE (CPT-89784) Routine 10/20/2025 2:12 PM EST Type 2 diabetes mellitus with hyperglycemia, with long-term current use of insulin (HCC) ECG 12-LEAD Routine 10/20/2025 Pre-operative exam Angina pectoris POCT GLYCATED HEMOGLOBIN, TOTAL Routine 08/09/2025 9:33 AM EDT Type 2 diabetes mellitus with hyperglycemia, with long-term current use of insulin (CMS/HCC) POCT GLUCOSE (CPT-41354) Routine 08/09/2025 9:31 AM EDT Type 2 [...] Recently Relevant to Health Maintenance Results * (ABNORMAL) CBC auto differential (11/08/2025 3:25 PM EST) White Blood Count 7.4 4.8 - 10.8 X10*3/uL [facility] Red Blood Count 4.23 4.20 - 5.50 X10*6/uL [facility] Hemoglobin 12.3 12.0 - 16.0 g/dl [facility] Hematocrit 37.8 37.0 - 47.0 % [facility] Mean Corpuscular Volume 89.4 80.0 - 98.0 fL [facility] Mean Corpuscular Hemoglobin 29.1 27.0 - 33.0 pg [facility] Mean Corpuscular HGB Conc 32.5 31.0 - 35.0 g/dl [facility] Red Cell Distribution Width 13.8 11.0 - 16.0 % [facility] Platelet Count 97(L) 160 - 400 X10*3/uL [facility] Mean Platelet Volume 10.5 9.4 - 12.3 fL [facility] Neutrophils Percent Auto 57.4 45 - 73 % [facility] Imm Gran Pct Auto 0.4 0.0 - 0.4 % [facility] Lymphocytes Percent Auto 32.5 20 - 40 % [facility] Monocytes Percent Auto 6.6 2 - 11 % [facility] Eosinophils Percent Auto 2.3 0 - 4 % [facility] Basophils Percent Auto 0.8 0 - 2 % [facility] NRBC Pct Auto 0.0 0.0 - 0.2 /100WBC [facility] Neutrophils Absolute Auto 4.2 2.0 - 8.3 x10*3/uL [facility] Imm Gran Abs Auto 0.03 0.00 - 0.03 X10*3/uL [facility] Lymphocytes Absolute Auto 2.4 1.2 - 4.9 X10*3/uL [facility] Monocytes Absolute Auto 0.5 0.1 - 1.2 X10*3/uL [facility] Eosinophils Absolute Auto 0.2 0.0 - 0.4 X10*3/uL [facility] Basophils Absolute Auto 0.1 0.0 - 0.2 X10*3/uL [facility] NRBC Abs Auto 0.000 0.0 - 0.012 X10*3/uL [facility] Blood Venous blood specimen / Unknown 11/08/2025 3:25 PM EST 11/08/2025 3:25 PM EST Comfortyaquelinjuana Swansonsantiago RUIZ LAB BLOOD ORDERABLES Final Re sult Performing Organization Address [facility] de Phone Number [facility] [address] [place] [phone] * Partial Thromboplastin Time, Activated (APTT) (11/08/2025 3:25 PM EST) Partial Thromboplastin Time 29.1 26.7 - 34.1 SEC [facility] Blood Venous blood specimen / Unknown 11/08/2025 3:25 PM EST 11/08/2025 3:25 PM EST Comfortmiguel angel Ross NP LAB BLOOD ORDERABLES Final Re sult Performing Organization Address [facility] de Phone Number [facility] [address] [place] [phone] * Prothrombin Time-INR (11/08/2025 3:25 PM EST) Prothrombin Time 13.0 11.2 - 13.5 SEC [facility] INTERNATIONAL NORM RATIO 1.1 0.9 - 1.1 [facility] Comment:INTERNATIONAL NORMAL IZED RATIO (INR) REFERENCE RANGES Reference RangeFor patients not on anticoagulant therapy: 0.9 - 1.1INR ranges for oral anticoagulanttherapy:For prevention and treatment of venous thrombosis and pulmonary embolism: 2.0 - 3.0For acute myocardial infarction with aspirin therapy: 2.0 - 3.0For acute myocardial infarction without aspirin therapy: 3.0 - 4.0For patients with mechanical prosthetic heart valves: 2.5 - 3.5 Blood Venous blood specimen / Unknown 11/08/2025 3:25 PM EST 11/08/2025 3:25 PM EST Comfortmiguel angel Kikisantiago PROFESSOR OF VOICE LAB BLOOD ORDERABLES Final Re sult [facility] [address] [place] [phone] [phone] * ECG 12 lead (11/03/2025 8:38 AM EST) Only the most recent of2 resultswithin the time period is included. Narrative Shanice Jones MD - 11/03/2025 8:38 AM EST NSR, no ST-T segment changes, L axis deviation. VR 71 Shanice Jones MD ECG ORDERABLES Final Result * POCT Hgb A1c (10/20/2025 2:14 PM EST) Only the most recent of2 resultswithin the time period is included. Hemoglobin A1C 5.5 4.0 - 5.7 % QC Media Lot # [id number] Lot# Expiration Date Blood 10/20/2025 2:14 PM EST Elizabeth Ross NP POINT OF CARE TEST ENTER/EDIT ORDERABLES Final Result * POCT Glucose (10/20/2025 2:12 PM EST) Only the most recent of2 resultswithin the time period is included. Glucose Blood, POC 92 60 - 200 mg/dL QC Media Lot # [id number] Lot# Expiration Date , Blood Capillary blood specimen / Unknown 10/20/2025 2:12 PM EST Elizabeth Ross NP POINT OF CARE TEST ENTER/EDIT ORDERABLES Final Result * Hm Colonoscopy (10/07/2024 10:40 AM EST) Colonoscopy Normal Normal Idalmis Lambert - 10/07/2024 10:40 AM EST Recommended 10 years . see results scanned in digital media designer on 10/07/2024 Historical Provider HEALTH MAINTENANCE Edited Result - Final * BI Mammogram Screening Tomosynthesis Bilateral (06/10/2024 3:25 PM EDT) Anatomical Region Laterality Modality Breast Bilateral Mammography 06/10/2024 3:25 PM EDT Narrative 06/17/2024 11:18 AM EDT [address] [place] [address] Mammography Report Signed Patient: Lindsey Wilson MR#: [id number] : 1965 Acct:[id number] Age/Sex: 59 / F ADM Date: 06/10/24 Loc: HOAnanthMAMMO Attending Dr: Shanice Jones MD Ordering Physician: Shanice Jones Results: 1Negative Date of Service: 06/10/24 Follow Up: 1 Year From Orig inal Mammogram Procedure(s): MM tomosynthesis screening BI Accession Number(s): [id number] cc: Shanice Jones EXAMINATION: MM SCREENING DIGITAL [...] for their next mammogram. Dictated By: Monica Reaagn MD Signed By: <Electronically signed by Monica Reagan MD in OV> 06/17/24 1114 DD/ 1525 TD/TT: Assayer: Procedure Note Donotuseinterpreter, Image - 06/17/[address] [place] [address] Mammography Report Signed Patient: Lindsey Wilson MR#: [id number] : 1965Acct:[id number] Age/Sex: 59 / FADM Date: 06/10/24 Loc: AnanthMAMMO Attending Dr: Shanice Jones MD Ordering Physician: Felix Jonesults: 1Negative Date of Service: 06/10/24Follow Up: 1 Year From [facility] ina Mammogram Procedure(s): MM tomosynthesis screening BI Accession Number(s): [id number] cc: Shanice Jones EXAMINATION: MM SCREENING DIGITAL [...] in OV> 06/17/24 1114 DD/ 1525 TD/TT: Assayer: us Shanice Jones MD IMG BI PROCEDURES Final Result * Albumin, Random Urine W/Creatinine (06/05/2024 11:45 AM EDT) Creatinine, Urine 148.96 mg/dL [facility] Microalbumin Urine 12.0 mg/L [facility] Microalbum Creatinine Ratio Ur 8.0 <30 ug/mg cr [facility] Comment:Albumin/Creatinine R atio Reference Ranges: Normal: < 30 ug/mg creatinine Microalbuminuria: 30 - 300 ug/mg creatinineClinical Albuminuria: > 300 ug/mg creatinine Urine (Urine, Random) 06/05/2024 11:45 AM EDT 06/05/2024 12:51 PM EDT us Shanice Jones MD LAB URINE ORDERABLES Final Res ult Performing Organization Address [facility] Co de Phone Number [facility] [address] [place] [phone] * Hepatitis C Antibody with Reflex to HCV, RNA, Quantitative, Real-Time PCR (06/05/2024 11:45 AM EDT) Hepatitis C Antibody Nonreactive Nonreactive [facility] Comment:Antibodies to HCV no t detected; does not exclude early acuteHCV infection. Blood Venous blood specimen / Unknown 06/05/2024 11:45 AM EDT 06/05/2024 1:04 PM EDT us Gissel Machuca MD LAB BLOOD ORDERAB LES Final Result Performing Organization Address [facility] Co de Phone Number [facility] [address] [place] [phone] * HIV-1/2 Antigen and Antibodies, Fourth [...] below the limit ofdetection of this assay.The [employer] HIV Ag/Ab Combo assay result andsupplemental assay results should be interpreted inconjunction with the patient's clinical presentation,history and other laboratory results. If the results areinconsistent with clinical evidence, additional testing issuggested to confirm the result. Blood Venous blood specimen / Unknown 06/05/2024 11:45 AM EDT 06/05/2024 1:04 PM EDT us Gissel Machuca MD LAB BLOOD ORDERAB LES Final Result Performing Organization Address [facility] Co de Phone Number [facility] [address] [place] [address] [phone] * (ABNORMAL) Lipid Panel, Standard (06/05/2024 11:45 AM EDT) Triglycerides 132 <150 mg/dL [facility] Comment:Desirable Triglyceri de: less than 150 mg/dLBorderline High Triglyceride 150-199 mg/dLHigh Triglyceride: 200-499 mg/dLVery High Triglyceride: greater than or equal to 5OO mg/dL Cholesterol 110 <200 mg/dL [facility] Comment:Desirable Cholestero l: less than 200 mg/dLBorderline High Cholesterol: 200-239 mg/dLHigh Cholesterol: greater than 239 mg/dL LDL Cholesterol Calculated 47 <100 mg/dL [facility] Comment:Desirable LDL: less than 100 mg/dLNear Optimal/Above Optimal LDL: 110- 129 mg/dLBorderline High LDL: 130-159 mg/dLHigh LDL: 160-189 mg/dLVery High LDL: greater than or equal to 190 mg/dL HDL Cholesterol 37(L) >40 mg/dL [facility] Comment:Desirable HDL: great er than 40 mg/dL Note: This HDL assay may give artificially low results in patients with liver disease. Blood Venous blood specimen / Unknown 06/05/2024 11:45 AM EDT 06/05/2024 1:04 PM EDT us Shanice Jones MD LAB BLOOD ORDERABLES Final Res ult Performing Organization Address [facility]/ZIP Co de Phone Number [facility] [address] [place] [address] [phone] * PAP/HPV (10/24/2018) Pap Smear 1. NILM 1. NILM HPV Not Detected Undetected, Indeterminat e, Quantitative , Not Detected us Historical Provider HEALTH MAINTENANCE Final Result from Last 3 Months or Most Recently Relevant to Health Maintenance Insurance [employer] Care Teams Management Instructor Relationship Specialty Start Date End Date Shanice Jones MD [address] [place] [id number] PCP - General Family Medicine 12/22/20 Cary Alonzo Tobacco Stripping Machine OperatorSilver Designer 08/26/24 Olamide Buitrago Tobacco Stripping Machine OperatorSilver Designer 08/11/25 Morenita 08/26/25
--- OUTSIDE RECORDS SUMMARY | 2025-11-08 17:23 | XMS_ITS | Encounter Summary ---
Author Organization [facility] Address [address] [place] [phone] Phone Care Team Providers Care Acting Manager Name Role Phone Raad Lucas NP, Renetta Primary Care Provider Malaika Augustin MD Primary Care Provider [phone] Shanice Jones MD Primary Care Provider + Shanice Jones MD Primary Care Provider + Encounter Details Date Type Department Care Team (Latest Contact Info) Description 02/24/2021 Ancillary Orders [facility] [address] [place] [address] [place] [address] Ernie Portillo, DO [address] [place] [address] Chest pain, cardiac Social History Tobacco Use [...] Description 12/09/2025 3:20 PM EST Office Visit [facility] [address] [place] [address] Omari Potts DO 22 [place] [address] 01/31/2026 1:30 PM EDT Office Visit [facility] Neurology [facility] [address] [place] [address] Gabe Ramsey MD [address] [address] 05/02/2026 10:00 AM EDT Office Visit [facility] Neu[facility] [address] [place] [address] Mlelisa Monterroso FNP [address] [address] [email or web address] documented as of this encounter Results * [...] premature atrial complexes No significant arrhythmias noted Ernie Portillo DO CV CARDIAC SERVICES ORDERABLE S Final Result documented in this encounter Visit Diagnoses Diagnosis Chest pain, cardiac Chest pain, cardiac documented in this encounter Additional Health Concerns Infection Onset Date Last Indicated Resolved Time CoV-Risk 02/20/2022 02/20/2022 03/03/2022 1:24 AM EDT CoV-Risk 06/05/2024 06/05/2024 06/16/2024 1:22 AM EDT documented as of this encounter Care Teams Acting Manager Relationship Specialty Start Date End Date Renetta Shankar NP PCP - General 07/08/20 06/04/21 Malaika Moeller MD [address] [address] [email or web address] PCP - General Family Medicine 06/05/21 10/17/21 Shanice Jones MD 15 [facility] [address] [place] [address] PCP - General 10/18/21 07/16/25 Shanice Jones MD [address] [place] [address] PCP - General Family Medicine 07/17/25 documented as of this encounter Additional Source Comments The information contained in this document represents components of the legal health record. It is not the complete legal health record.[facility]
--- OUTSIDE RECORDS SUMMARY | 2025-11-08 17:23 | XMS_ITS | Encounter Summary ---
Author Organization [employer] Address [address] [facility] 7t [place] [address] Care Team Providers Care Quality Improvement Manager Name Role Phone Shanice Jones MD Primary Care Provider [phone] Sanaz Machuca Unavailable Encounter Details Date Type Department Care Team ([facility] st Contact Info) Description 05/05/2025 Orders Only [facility] [address] [place], [place] [phone] Wanda Ivory MD [address] [place], [place] [phone] Neck pain (Primary Dx) Social History Tobacco [...] 11:30 AM EST Office Visit [facility] [address] [place] [address] [phone] Shanice Jones MD [address] [place], [place] [phone] documented as of this encounter Procedures Procedure Name Priority Date/Time Associated Diagnosis Comments XR CERVICAL SPINE 4V Routine 06/30/2025 4:53 PM EDT Neck pain documented in this encounter Results * XR CERVICAL SPINE 4V (06/30/2025 4:53 PM EDT) Anatomical Region Laterality Modality Abdomen Radiographic Haylie ging 06/30/2025 4:53 PM EDT Narrative 06/30/2025 5:29 PM EDT [address] [address] XRay Report Signed Patient: Lindsey Wilson MR#: [id number] : 1965 Acct:[id number] Age/Sex: 60 / F ADM Date: 06/30/25 Loc: HO.CT Attending Dr: Nick Lofton MD Ordering Physician: Wanda Ivory MD Date of Service: 06/30/25 Procedure(s): XR cervical spine 4V Accession Number(s): [id number] cc: Shanice Jones; Wanda Ivory MD EXAMINATION: [...] 06/30/25 1726 DD/ 1653 TD/TT: 06/30/25 1705 Internal Medicine Specialist: Procedure Note Donotuseinterpreter, Image - 06/30/2025 [place] [address] XRay Report Signed Patient: Lindsey Wilson MR#: [id number] : 1965Acct:[id number] Age/Sex: 60 / FADM Date: 06/30/25 Loc: HO.CT Attending Dr: Nick Lofton MD Ordering Physician: Wanda Ivory MD Date of Service: 06/30/25 Procedure(s): XR cervical spine 4V Accession Number(s): [id number] cc: Shanice Jones; Wanda Ivory MD EXAMINATION: [...] 06/30/25 1726 DD/ 1653 TD/TT: 06/30/25 1705 Internal Medicine Specialist: Wanda Ivory MD IMG XR PROCEDURES Final Result documented in this encounter Visit Diagnoses Diagnosis Neck pain- Primary Cervicalgia documented in this encounter Additional Health Concerns Assessment Noted Time PHQ-9 Depression Total Score: 6 03/26/20 4:46 PM EDT documented as of this encounter Care Teams Quality Improvement Manager Relationship Specialty Start Date End Date Shanice Jones MD [address] [place] [address] PCP - General Family Medicine 12/22/20 Sanaz Machuca 07/19/25 07/23/25 Cary Alonzo Primer Charging Tool SetterCaptain Cannery Tender 08/26/24 Himanshu Hayes 12/26/24 09/05/25 Olamide Buitrago Primer Charging Tool SetterCaptain Cannery Tender 08/11/25 Morenita 08/26/25 documented as of this encounter
--- OUTSIDE RECORDS SUMMARY | 2025-11-08 17:23 | XMS_ITS | Encounter Summary ---
Author Organization [employer] Address [address] [facility] 7 [place] [address] Care Team Providers Care Cuff Matcher Name Role Phone Shanice Jones MD Primary Care Provider [phone] Sanaz Machuca Unavailable Encounter Details Date Type Department Care Team (Late st Contact Info) Description 10/13/2024 Orders Only [facility] [address] [place] [address] Provider, MD Maurisio Social History Tobacco Use [...] 12/22/2025 11:30 AM EST Office Visit [facility] [address] [place], [place] [phone] Shanice Jones MD 230 [place], [place] [phone] documented as of this encounter Procedures Procedure Name Priority Date/Time Associated Diagnosis Comments SURGICAL PATHOLOGY Routine 10/07/2024 3:22 PM EST documented in this encounter Results * Surgical Pathology (10/07/2024 3:22 PM EST) us Historical Provider LAB PATHOLOGY ORDERABLES Final Result documented in this encounter Visit Diagnoses Not on filedocumented in this encounter Care Teams Cuff Matcher Relationship Specialty Start Date End Date Shanice Jones MD [address] [place] [address] [phone] PCP - General Family Medicine 12/22/20 Sanaz Machuca 07/19/25 07/23/25 Cary Alonzo Public Address ServicerRotating Equipment Engineer 08/26/24 Himanshu Caring 12/26/24 09/05/25 Olamide Buitrago Public Address ServicerRotating Equipment Engineer 08/11/25 Morenita 08/26/25 documented as of this encounter
--- OUTSIDE RECORDS SUMMARY | 2025-11-08 17:23 | XMS_ITS | Encounter Summary ---
Author Organization [employer] Address [address] [facility] 7 [place] [address] Care Team Providers Care Mailing Machine Operator Name Role Phone Shanice Jones MD Primary Care Provider [phone] Reason for Visit * Reason Onset Date Comments letter 11/03/2025 Encounter Details Date Type Department Care Team ([facility] st Contact Info) Description 11/03/2025 Telephone [facility] [address] [place], [place] [phone] Shanice Jones MD 230 [place] [address] letter Social History Tobacco Use Types Packs/Day Years [...] Telephone Encounter - Lyly Cobb RN - 11/03/2025 10:54 AM EST Noted provider at preop 11/01 documented she does not require further risk stratification and can proceed with surgery TC returned to [facility] ortho surgical scheduling line to advise of this, no answer, left detailed message. Faxed note to [phone], confirmation received. [facility] ortho to f/up prn * Telephone Encounter - Mary Beth Lopez - 11/03/2025 8:08 AM EST Tc from Yanique at [facility] requesting update on clearance letter for pt as pt was nit cleared when she had pre op and surgery is next week Contact at [phone] documented in this encounter Plan of Treatment Upcoming Encounters Date Type Department Care Team (Late st Contact Info) Description 12/22/2025 11:30 AM EST Office Visit [facility] [address] [place], [place] [phone] Shanice Jones MD [address] [place], [place] [phone] documented as of this encounter Visit Diagnoses Not on filedocumented in this encounter Additional Health Concerns Assessment Noted Time PHQ-9 Depression Total Score: 6 03/26/20 25 4:46 PM EDT documented as of this encounter Care Teams Mailing Machine Operator Relationship Specialty Start Date End Date Shanice Jones MD [address] [place], [place] [phone] PCP - General Family Medicine 12/22/20 Cary Alonzo Mill FeederBuzzle Buffer 08/26/24 Olamide Buitrago Mill FeederBuzzle Buffer 08/11/25 Morenita 08/26/25 documented as of this encounter
--- OUTSIDE RECORDS SUMMARY | 2025-11-08 17:23 | XMS_ITS | Encounter Summary ---
Author Organization [employer] Address [address] [facility] 7 [place] [address] Care Team Providers Care Oven Laborer Name Role Phone Shanice Jones MD Primary Care Provider [phone] Sanaz Machuca Unavailable Encounter Details Date Type Department Care Team (Late st Contact Info) Description 10/22/2024 Orders Only [facility] [address] [place] [address] Provider, MD Maurisio Social History Tobacco Use [...] 12/22/2025 11:30 AM EST Office Visit [facility] [address] [place], [place] [phone] Shanice Jones MD 230 [place] [address] documented as of this encounter Procedures Procedure Name Priority Date/Time Associated Diagnosis Comments SURGICAL PATHOLOGY Routine 10/07/2024 8:25 AM EST documented in this encounter Results * Surgical Pathology (10/07/2024 8:25 AM EST) us Historical Provider LAB PATHOLOGY ORDERABLES Final Result documented in this encounter Visit Diagnoses Not on filedocumented in this encounter Care Teams Oven Laborer Relationship Specialty Start Date End Date Shanice Jones MD [address] [place] [address] [phone] PCP - General Family Medicine 12/22/20 Sanaz Machuca 07/19/25 07/23/25 Cary Alonzo Pi/Senior Research AssociateStaffing Executive 08/26/24 Himanshu Caring 12/26/24 09/05/25 Olamide Buitrago Pi/Senior Research AssociateStaffing Executive 08/11/25 Morenita 08/26/25 documented as of this encounter
--- OUTSIDE RECORDS SUMMARY | 2025-11-08 17:23 | XMS_ITS | Clinical Summary ---
Author Organization [employer] [facility] Address [address] [place] [address] Care Team Providers Care Delivery Rn Name Role Phone Unavailable Primary Care Provider [...] Last Done Comments Breast Cancer Screening 1965 Cervical Cancer Screening: Pap Smear 1986 Depression Screening 11/11/2024 COVID-19 Vaccine ( season) 2025 01/25/2021 DTaP,Tdap,and Td Vaccines (3 - Td or Tdap) 12/25/2031 12/25/2021, 08/02/2010 RSV Immunization Adult Patients (1 - 1-dose 75+ series) 2040 Hepatitis B Vaccines Completed 05/10/2015, 03/05/2014, 10/05/2013 Zoster Vaccines Completed 12/25/2021, 10/18/2020 Pneumococcal Vaccine: 50+ Years Completed 07/26/2023, 12/17/2016 Influenza Vaccine Completed 07/21/2025, , 10/02/2021, Additional [...] to complete this topic RSV Immunization Patients Under 20 months Aged Out No longer eligible based on patient's age to complete this topic Varicella Vaccines Aged Out No longer eligible based on patient's age to complete this topic
--- OUTSIDE RECORDS SUMMARY | 2025-11-08 17:23 | XMS_ITS | Encounter Summary ---
Author Organization [employer] Address [address] [facility] 7t [place] [address] Care Team Providers Care Salon Supervisor Name Role Phone Shanice Jones MD Primary Care Provider [phone] Reason for Visit * Reason Comments Med Refill Encounter Details Date Type Department Care Team ([facility] Contact Info) Description 11/04/2025 Refill [facility] [address] [place], [place] [phone] Shanice Jones MD 230 [place] [address] Social History Tobacco Use Types Packs/Day Years [...] the past 12 months, has t he [employer], gas, oil or water company threatened to [...] Description 12/22/2025 11:30 AM EST Office Visit [facility] [address] [place] [address] Shanice Jones MD [address] [place] [address] documented as of this encounter Visit Diagnoses Not on filedocumented in this encounter Additional Health Concerns Assessment Noted Time PHQ-9 Depression Total Score: 6 03/26/20 25 4:46 PM EDT documented as of this encounter Care Teams Salon Supervisor Relationship Specialty Start Date End Date Shanice Jones MD [address] [place] [address] PCP - General Family Medicine 12/22/20 Cary Alonzo Sales Administration ManagerDirector Inpatient Headache Program 08/26/24 Olamide Buitrago Sales Administration ManagerDirector Inpatient Headache Program 08/11/25 Aveanna 08/26/25 documented as of this encounter
--- OUTSIDE RECORDS SUMMARY | 2025-11-08 17:23 | XMS_ITS | Encounter Summary ---
Author Organization [employer] Address [address] [place] [address] 7 [place] [address] Care Team Providers Care Flash Drier Operator Name Role Phone Shanice Jones MD Primary Care Provider [phone] Sanaz Machuca Unavailable Reason for Referral * Imaging (Routine) - Closed Specialty Diagnoses / Procedures Referred By Contac t Referred To Contact Radiology Diagnoses Chronic left shoulder pain Procedures MR Shoulder w/o Contrast Left Shanice Jones MD [address] [place] [address] Phone: tel: fax: [address] [address] Phone: tel: fax: Referral ID Status Reason Start Date Expiration Date Visits Re quested Visits Authorized [id number] Closed 05/06/2025 05/06/2026 1 1 Encounter Details Date Type Department Care Team (Late st Contact Info) Description 05/06/2025 Orders Only [facility] [address] [place], [place] [phone] Shanice Jones MD [address] [place], [place] [phone] Chronic left shoulder pain (Primary Dx) Social [...] Description 12/22/2025 11:30 AM EST Office Visit [facility] [address] [place], [place] [phone] Shanice Jones MD [address] [place] [address] documented as of this encounter Procedures Procedure Name Priority Date/Time Associated Diagnosis Comments MR SHOULDER WO CONTRAST LEFT Routine 05/22/2025 9:35 PM EDT Chronic left shoulder pain documented in this encounter Results * MR Shoulder w/o Contrast Left (05/22/2025 9:35 PM EDT) Anatomical Region Laterality Modality Upper Extremities, Shoulder Left Magn etic Resonance 05/22/2025 9:35 PM EDT Narrative 05/22/2025 9:37 PM EDT [address] [address] Magnetic Resonance Report Signed Patient: Lindsey Wilson MR#: [id number] : 1965 Acct:[id number] Age/Sex: 60 / F ADM Date: 05/20/25 Loc: HO.MRI Attending Dr: Shanice Jones MD Ordering Physician: Shanice Jones Date of Service: 05/20/25 Procedure(s): MR shoulder LT wo con Accession Number(s): [id number] cc: Shanice Jones CLINICAL HISTORY: chronic pain [...] in OV> 05/22/252135 DD/ 34 TD/TT: 05/22/252134 Senior Category Manager: Procedure Note Donotuseinterpreter, Image - 05/22/[address] [address] Magnetic Resonance Report Signed Patient: Lindsey Wilson MR#: [id number] : 1965Acct:[id number] Age/Sex: 60 / FADM Date: 05/20/25 Loc: HO.MRI Attending Dr: Shanice Jones MD Ordering Physician: Shanice Jones Date of Service: 05/20/25 Procedure(s): MR shoulder LT wo con Accession Number(s): [id number] cc: Shanice Jones CLINICAL HISTORY: chronic pain [...] in OV> 05/22/252135 DD/ 34 TD/TT: 05/22/252134 Senior Category Manager: Shanice Jones MD IMG MRI PROCEDURES Edited Resu lt - Final documented in this encounter Visit Diagnoses Diagnosis Chronic left shoulder pain- Primary Pain in joint, shoulder region documented in this encounter Additional Health Concerns Assessment Noted Time PHQ-9 Depression Total Score: 6 03/26/20 4:46 PM EDT documented as of this encounter Care Teams Flash Drier Operator Relationship Specialty Start Date End Date Shanice Jones MD [address] [place] [address] PCP - General Family Medicine 12/22/20 Sanaz Machuca 07/19/25 07/23/25 Cary Alonzo Hvac InstallerDental Claims Processor 08/26/24 Himanshu Hayes 12/26/24 09/05/25 Olamide Buitrago Hvac InstallerDental Claims Processor 08/11/25 Morenita 08/26/25 documented as of this encounter
== END 2025-11-08 15:08 ==
LOC: HO.LAB 15:07
PROVIDERS: PCP General Practice; Visit Provider General Practice
DX: Z01.818 Encounter for other preprocedural examination (principal); E11.65 Type 2 diabetes mellitus with hyperglycemia; E66.811 Obesity, class 1; Z79.4 Long term (current) use of insulin
CPT/HCPCS: 36415; 85025; 85610; 85730